=== PATIENT | male | born 1955 | race African-American/Black ===

== ENCOUNTER 2017-02-10 01:16 | Inpatient (IN) | payer MEDICAID, OTHER ==
[2017-02-10] VITALS (9 sets, daily range): BP systolic 129–217; BP diastolic 69–123
[~2017-02-10] VITALS: Ht 190.5 cm; Wt 111.1 kg
[~2017-02-10 01:16] MED LIST: Morphine Sulfate 4mg/ml Inj IVP ONE; Vancomycin 1.5gm/D5W 300ml 325 ML IVPB ONE; metroNIDAZOLE 500mg 100 ML IV SCH
[2017-02-10] MEDS: metroNIDAZOLE 500mg 100 ML IV SCH ×2 (02:11→08:37)
[2017-02-10 02:27] LABS: BASOPHILS % (AUTO) 1.4 % (0.0-2.0); EOSINOPHILS % (AUTO) 0.1 % (0.0-3.0); LYMPHOCYTES % (AUTO) 8.9 % (20.0-45.0); MEAN CORPUSCULAR HEMOGLOBIN 33.4 PG (27.0-31.0); MEAN CORPUSCULAR VOLUME 101 FL (80-99); MEAN PLATELET VOLUME 8.7 FL (6.5-10.1); MONOCYTES % (AUTO) 6.4 % (1.0-10.0); NEUTROPHILS % (AUTO) 83.3 % (45.0-75.0); PLATELET COUNT 114 K/UL (150-450); RED BLOOD COUNT 3.84 M/UL (4.70-6.10); RED CELL DISTRIBUTION WIDTH 13.5 % (11.6-14.8); WHITE BLOOD COUNT 17.4 K/UL (4.8-10.8)
[2017-02-10] MEDS ORDERED: Morphine Sulfate 4mg/ml Inj IVP ONE (02:30)
[2017-02-10 02:33] LABS: INR 1.3 (0.9-1.1); PROTHROMBIN TIME 13.4 SEC (9.30-11.50)
[2017-02-10 02:35] LABS: ALANINE AMINOTRANSFERASE 64 U/L (3-41); ALBUMIN/GLOBULIN RATIO 0.4 (1.0-2.7); ANION GAP 16 (5-15); ASPARTATE AMINO TRANSFERASE 159 U/L (5-40); CALCIUM 8.8 mg/dL (8.6-10.2); CARBON DIOXIDE 23 mEQ/L (20-30); CHLORIDE 99 mEQ/L (98-107); CREATININE 1.8 mg/dL (0.7-1.2); GLOMERULAR FILTRATION RATE 46.8 mL/min (>60); HEMOLYSIS 3; MAGNESIUM 1.6 mg/dL (1.7-2.5); POTASSIUM 4.3 mEQ/L (3.4-4.9); SODIUM 138 mEQ/L (135-145); TOTAL PROTEIN 9.1 g/dL (6.6-8.7)
[2017-02-10 02:38] LABS: REFLEX LACTIC ACID YES OR NO YES
[2017-02-10 02:43] LABS: APPEARANCE,URINE CLEAR; KETONES,URINE 1+ (NEGATIVE); LEUKOCYTE ESTERASE ,URINE 1+ (NEGATIVE); NITRITE,URINE NEGATIVE (NEGATIVE); PH,URINE 5 (4.5-8.0); PROTEIN,URINE 3+ (NEGATIVE); UROBILINOGEN,URINE 8 MG/DL (0.0-1.0)
[2017-02-10 02:57] LABS: BACTERIA,URINE FEW /HPF; CALCIUM OXALATE CRYSTALS,UR MODERATE /LPF; RBC,URINE 0-2 /HPF (0 - 0); WBC,URINE 0-2 /HPF (0 - 0)
[2017-02-10 02:58] LABS: ICTOTEST POSITIVE
[2017-02-10 02:59] LABS: TROPONIN I < 0.30 ng/mL (<=0.30)
[2017-02-10] MEDS ORDERED: Cefepime HCl 1 GM in D5W 55 ML IVPB ONE (03:00)
[2017-02-10] MEDS ORDERED: Cefepime 1gm vial ONE (03:01)
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
[2017-02-10] MEDS ORDERED: NS 1000ml 3,300 ML IVLG ONE (03:30)
[2017-02-10 03:33] LABS: ERYTHROCYTE SEDIMENTATION RATE 94 MM/HR (0-20)
[2017-02-10] MEDS ORDERED: NKM (04:16)
[2017-02-10 04:53] LABS: BILIRUBIN,DIRECT 0.9 mg/dL (0.1-0.3)
[2017-02-10] MEDS ORDERED: Nitroglycerin Subl 0.4mg tab (Bottle Of 25) SL PRN (07:30)
[2017-02-10] MEDS ORDERED: Miralax 17gm pkt ORAL PRN (07:30)
[2017-02-10] MEDS ORDERED: DuoNeb 0.5-3(2.5)mg/3ml neb HHN PRN (07:30)
[2017-02-10] MEDS ORDERED: metroNIDAZOLE 500mg 100 ML IVPB SCH (08:00)
--- NOTE | 2017-02-10 09:24 | Diagnostic Imaging Report ---
Indication: Pain Comparison: None Findings: 3 views of the left ankle obtained. No fracture or malalignment seen. Tissue swelling is present. Impression: Soft tissue swelling
--- NOTE | 2017-02-10 09:34 | Diagnostic Imaging Report ---
Indication: Pain Comparison: None Findings: Two views of the left tibia and fibula were obtained. No acute fracture, malalignment, or periosteal reaction are identified. Soft tissues are unremarkable. Bones are osteopenic. Impression: No acute fracture seen
--- NOTE | 2017-02-10 09:36 | Diagnostic Imaging Report ---
Indication: Chest Pain Comparison: None A single view chest radiograph was obtained. Findings: Cardiomediastinal appearance is within normal limits for age. Aorta is mildly ectatic. Pulmonary vascularity is appropriate. The diaphragmatic contour is smooth and costophrenic angles are sharp. No pleural effusions are identified. The bones are unremarkable. Impression: No acute findings
--- NOTE | 2017-02-10 09:45 | Diagnostic Imaging Report ---
Indication: Pain Comparison: None Findings: 3 views of the right foot were obtained. Patient has had a injury to the first toe. There are bandages present and soft tissue irregularity. There is truncation of the tuft of the distal phalange. Findings could be due to erosion due to osteomyelitis or other soft tissue,. Please correlate clinically. Impression: Apparent erosion involving the tuft of the first distal phalange. Osteomyelitis is only possible. Please correlate clinically
[2017-02-10] MEDS ORDERED: NS 275ml ONE (10:22)
[2017-02-10] MEDS ORDERED: Tubing IV Secondary IV ONE (10:22)
[2017-02-10] MEDS: metroNIDAZOLE 500mg 100 ML IVPB SCH ×3 (10:29→21:03)
[2017-02-10] MEDS: Morphine Sulfate 2mg/ml Inj IVP PRN ×2 (10:29→16:11)
[2017-02-10] MEDS: Heparin 5000 units/ml inj SUBQ SCH ×2 (10:37→20:59)
--- NOTE | 2017-02-10 11:01 | Consultation ---
Consult Note Consult Note ID Dic # [id number] YODIT CASTAÑEDA M.D. February 10, 2017 11:01
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
--- NOTE | 2017-02-10 15:46 | Cardiology Report ---
APPROVED REPORT EKG Measurement Heart [id number] Sinus tachycardia Minimal voltage criteria for LVH, may be normal variant Abnormal ECG
[2017-02-10] MEDS ORDERED: Vancomycin 1 GM in D5W 275 ML IVPB SCH (16:00)
--- NOTE | 2017-02-10 16:21 | Diagnostic Imaging Report ---
Indication: Pain Technique: Right foot imaging utilizing multiplanar T1 fast spin-echo and STIR. Comparison: None Findings: There is a prominent erosion involving the distal aspect of the first distal phalange suspicious for osteomyelitis. Moderate soft tissue swelling and edema are noted. Some motion artifact is present. The proximal phalange of the first metatarsal. Unremarkable. Sesamoids are unremarkable. The second distal phalange is also abnormal with diminished T1 and increased T2 signal with overlying soft tissue swelling and suspicion of ulceration. Findings suspicious for osteomyelitis. There is a focus of T1 hypointensity slight T2 hyperintensity involving the base of the fifth proximal phalange suspicious for osteomyelitis. The distal phalanges of the third and fourth toes demonstrate T2 hyperintensity but appear normal on T1-weighted images. Findings are nonspecific and most likely reactive bone marrow edema. Generalized subcutaneous edema within the foot especially in the dorsum of the foot is a nonspecific finding but consistent with cellulitis. Impression: Acute osteomyelitis suspected with regard to the first distal phalange, second distal phalange, and proximal fifth phalange. Please correlate clinically. Generalized cellulitis of the foot. Bone marrow edema (T2 hyperintensity) within the third and fourth distal phalanges with normal T1 signal. This is less specific and findings may be due to reactive bone marrow edema.
--- NOTE | 2017-02-10 22:49 | Consultation ---
DATE OF CONSULTATION: 02/10/2017 INFECTIOUS DISEASE CONSULTATION CONSULTING PHYSICIAN: Joseph Pacheco M.D. REQUESTING PHYSICIAN: Tian Hagan M.D. REASON FOR CONSULTATION: Evaluation of the patient for bilateral lower extremity cellulitis, possible osteomyelitis of the right foot, and antibiotic management. HISTORY OF PRESENT ILLNESS: The patient is a 61-year-old male, who is a poor historian with multiple medical problems, who has been admitted to this medical center due to bilateral lower extremity cellulitis, right more than left. An Infectious Disease consultation has been requested for further evaluation of the patient and antibiotic management. PAST MEDICAL HISTORY: Significant for hypertension. ALLERGIES: Penicillin. SOCIAL HISTORY: No history of drug abuse. FAMILY HISTORY: Noncontributory. REVIEW OF SYSTEMS: HEENT: No recent change in vision or hearing. Pulmonary: No cough or shortness of breath. Cardiovascular: No chest pain or palpitation. Gastrointestinal/Abdomen: No nausea. Genitourinary: No dysuria. Musculoskeletal: He has lower extremity swelling and tenderness, right more than left. Neurologic: No seizures. PHYSICAL EXAMINATION: VITAL SIGNS: Temperature 99.1 degrees, blood pressure 175/91, pulse 100, and respiratory rate 18. HEENT: Mild pale conjunctivae. No icterus. NECK: No lymphadenopathy. CHEST: Coarse breathing sounds. HEART: S1 and S2. ABDOMEN: Soft and nontender. EXTREMITIES: The patient has bilateral lower extremity edema, right more than left. Also, the patient has athletic feet. LABORATORY DATA: WBC 17, hemoglobin 12.8, and platelets 114,000. UA unremarkable. BUN 20 and creatinine 1.8. AST 159, ALT 64, and alkaline phosphatase 110. X-ray of the right foot shows upper end erosion of the tuft of the first distal phalanx, osteomyelitis configuration. The patient's urine tox is positive for cocaine and opiates. The abnormal liver functions could be due to the alcohol abuse. ASSESSMENT: The patient is a 61-year-old male with multiple medical problems, who has been admitted to this medical center with bilateral lower extremity cellulitis, athletic foot, and possible right foot osteomyelitis. PLAN: 1. We will continue the patient on IV vancomycin and cefepime and Flagyl. 2. Monitor blood culture. 3. HIV test. 4. Hepatitis B panel. 5. Monitor liver function tests. 6. Monitor CBC and BMP. 7. MRI of the right foot to rule out osteomyelitis. 8. Based on the patient's clinical course and labs, we will do further recommendations. Thank you, Dr. Hagan, for allowing me to participate in the care of this patient. I will follow this patient with you during this hospitalization. Joseph Pacheco M.D. DR: TIFFANIE JOB#: [id number] CC:
[2017-02-11 00:15] VITALS: BP 135/74
[2017-02-11] MEDS: Morphine Sulfate 2mg/ml Inj IVP PRN ×2 (01:45→22:56)
[2017-02-11] MEDS: metroNIDAZOLE 500mg 100 ML IVPB SCH ×4 (02:10→22:51)
[2017-02-11] MEDS ORDERED: Cefepime HCl 2 GM in D5W 110 ML IV SCH (03:00)
[2017-02-11 04:00] VITALS: BP 130/80
[2017-02-11] MEDS ORDERED: Vancomycin 1.5 GM in D5W 325 ML IVPB SCH (04:00)
[2017-02-11 08:00] VITALS: BP 138/82
[2017-02-11 08:05] LABS: CRP QUANT 1.7 mg/dL (< 0.5); EOSINOPHILS % (AUTO) 0.7 % (0.0-3.0); LYMPHOCYTES % (AUTO) 26.6 % (20.0-45.0); MAGNESIUM 1.9 mg/dL (1.7-2.5); MEAN CORPUSCULAR HEMOGLOBIN 34.1 PG (27.0-31.0); MEAN CORPUSCULAR HGB CONC 33.9 G/DL (32.0-36.0); MEAN CORPUSCULAR VOLUME 101 FL (80-99); MEAN PLATELET VOLUME 8.3 FL (6.5-10.1); NEUTROPHILS % (AUTO) 62.7 % (45.0-75.0); PHOSPHORUS 2.8 mg/dL (2.5-4.8); PLATELET COUNT 100 K/UL (150-450); RED BLOOD COUNT 3.11 M/UL (4.70-6.10); RED CELL DISTRIBUTION WIDTH 13.2 % (11.6-14.8); URIC ACID 7.3 mg/dL (3.0-7.5); WHITE BLOOD COUNT 9.6 K/UL (4.8-10.8)
[2017-02-11 08:13] LABS: ALBUMIN/GLOBULIN RATIO 0.5 (1.0-2.7); CALCIUM 7.9 mg/dL (8.6-10.2); CHOLESTEROL/HDL RATIO 2.9 (3.3-4.4); CREATININE 1.6 mg/dL (0.7-1.2); GLOMERULAR FILTRATION RATE 53.6 mL/min (>60); TOTAL PROTEIN 6.3 g/dL (6.6-8.7)
[2017-02-11 08:25] LABS: THYROID STIMULATING HORMONE 1.01 uIU/mL (0.300-4.500)
[2017-02-11] MEDS: Heparin 5000 units/ml inj SUBQ SCH ×2 (10:10→21:00)
[2017-02-11 12:00] VITALS: BP 137/81
--- NOTE | 2017-02-11 12:30 | General Progress Note ---
Assessment/Plan Status: stable Assessment/Plan status: Renal Failure : Acute vs Chronic Cr lower Sepsis Cellulitis : bilateral lower extremity cellulitis, athletic foot, and possible right foot osteomyelitis. Gangrene Urine positive for Cocaine Anemia Proteinuria , HypoAlbuminemia Plan: Hydrate- BP control- Monitor renal parameters Urine studies 2D echo antibiotics and skin care Subjective ROS Limited/Unobtainable: No Constitutional: Reports: malaise Allergies: Coded Allergies: PENICILLINS (Verified Allergy, Unknown, 02/10/17) Objective Last 24 Hour Vital Signs Date Time Temp Pulse Resp B/P Pulse Ox O2 Delivery O2 Flow Rate FiO2 02/11/17 09:54 91 138/82 02/11/17 08:29 91 18 Room Air 21 02/11/17 08:00 99.0 66 21 138/82 97 Room Air 02/11/17 04:23 71 02/11/17 04:00 99.9 70 18 130/80 98 Room Air 02/11/17 00:47 73 02/11/17 00:15 99.7 68 20 135/74 97 Bi-pap 02/10/17 20:02 99.3 75 19 144/85 98 Room Air 02/10/17 20:00 78 02/10/17 19:20 95 20 Room Air 21 02/10/17 16:17 97.9 69 20 129/69 100 Room Air 02/10/17 16:13 76 132/67 02/10/17 16:09 76 02/10/17 13:33 99.9 02/10/17 13:31 166/99 02/10/17 12:57 101.8 97 20 166/99 96 Room Air 02/10/17 12:43 99 20 Room Air 21 Intake and Output 02/10/17 02/11/17 19:00 07:00 Intake Total 830 ml 825 ml Output Total 600 ml Balance 230 ml 825 ml Intake Oral 480 ml IV Total 350 ml 825 ml Output Urine Total 600 ml Laboratory Tests 02/10/17 16:30: Urine Random Sodium 18 02/11/17 03:00: Urine Eosinophils None seen 02/11/17 06:55: White Blood Count 9.6, Red Blood Count 3.11L, Hemoglobin 10.6L, Hematocrit 31.3L , Mean Corpuscular Volume 101H, Mean Corpuscular Hemoglobin 34.1H, Mean Corpuscular Hemoglobin Concent 33.9, Red Cell Distribution Width 13.2, Platelet Count 100L, Mean Platelet Volume 8.3, Neutrophils (%) (Auto) 62.7, Lymphocytes ( %) (Auto) 26.6, Monocytes (%) (Auto) 9.0, Eosinophils (%) (Auto) 0.7, Basophils (%) (Auto) 1.0, Sodium Level 138, Potassium Level 4.0, Chloride Level 103, Carbon Dioxide Level 24, Anion Gap 11, Blood Urea Nitrogen 22, Creatinine 1.6H, Estimat Glomerular Filtration Rate 53.6, Glucose Level 72L, Uric Acid 7.3, Calcium Level 7.9L, Phosphorus Level 2.8, Magnesium Level 1.9, Total Bilirubin 0.8, Gamma Glutamyl Transpeptidase 75H, Aspartate Amino Transf (AST/SGOT) 157H, Alanine Aminotransferase (ALT/SGPT) 46H, Alkaline Phosphatase 61, Total Creatine Kinase 1551H, C-Reactive Protein, Quantitative 1.7H, Pro-B-Type Natriuretic Peptide 1329H, Total Protein 6.3#L, Albumin 2.1L, Globulin 4.2, Albumin/Globulin Ratio 0.5L, Triglycerides Level 68, Cholesterol Level 79, LDL Cholesterol 38L, HDL Cholesterol 27, Cholesterol/HDL Ratio 2.9L, Thyroid Stimulating Hormone (TSH) 1.010, Hepatitis A IgM Antibody [Pending], Hepatitis B Surface Antigen [Pending], Hepatitis B Core IgM Antibody [Pending], Hepatitis C Antibody [Pending] Height (Feet): 6 Height (Inches): 3.00 Weight (Pounds): 245 General Appearance: no apparent distress Cardiovascular: regular rhythm Respiratory/Chest: decreased breath sounds Abdomen: soft Objective PE no change MART MOREIRA February 11, 2017 12:30
--- NOTE | 2017-02-11 15:15 | Diagnostic Imaging Report ---
Indication: . Abnormal liver function tests. Clinical concern for cirrhosis Technique: Grayscale and duplex Doppler imaging of the abdomen performed. Comparison: None Findings: The liver demonstrates a coarsened echotexture which is potentially a sign of chronic liver disease. However, the finding is relatively nonspecific. There is no nodularity of the liver surface which is more specific finding for cirrhosis. Certainly, no focal lesions are identified within the liver. Liver size is order line measuring about 18 cm at its maximum. There is flow demonstrated within the portal vein. There is no biliary ductal dilatation. CBD is 6 mm in diameter. Gallbladder is normal in appearance. There is no hydronephrosis. In the right kidney there is an echogenic shadowing focus nonobstructive stone. The aorta and IVC are unremarkable. Spleen is borderline enlarged as well measuring between 12 and 13 cm. Impression: Borderline hepatosplenomegaly. No specific sonographic signs for cirrhosis of the liver. Coarsened echotexture is noted which is a nonspecific finding. No ascites. Suspected nonobstructive nephrolithiasis in the right kidney
--- NOTE | 2017-02-11 15:16 | Pulmonology Progress Note ---
Assessment/Plan Problems: (1) Sepsis (2) Gangrene (3) Homelessness (4) Drug abuse Assessment/Plan iv abx wbc decreasing renal function improving Med/surg Impression of MRI: Acute osteomyelitis suspected with regard to the first distal phalange, second distal phalange, and proximal fifth phalange. Please correlate clinically. Subjective ROS Limited/Unobtainable: No Constitutional: Reports: no symptoms HEENT: Repors: no symptoms Respiratory: Reports: no symptoms Cardiovascular: Reports: no symptoms Allergies: Coded Allergies: PENICILLINS (Verified Allergy, Unknown, 02/10/17) Objective Last 24 Hour Vital Signs Date Time Temp Pulse Resp B/P Pulse Ox O2 Delivery O2 Flow Rate FiO2 02/11/17 12:00 97.9 62 20 137/81 98 Room Air 02/11/17 11:45 60 02/11/17 09:54 91 138/82 02/11/17 08:29 91 18 Room Air 21 02/11/17 08:00 99.0 66 21 138/82 97 Room Air 02/11/17 07:28 71 02/11/17 04:23 71 02/11/17 04:00 99.9 70 18 130/80 98 Room Air 02/11/17 00:47 73 02/11/17 00:15 99.7 68 20 135/74 97 Bi-pap 02/10/17 20:02 99.3 75 19 144/85 98 Room Air 02/10/17 20:00 78 02/10/17 19:20 95 20 Room Air 21 02/10/17 16:17 97.9 69 20 129/69 100 Room Air 02/10/17 16:13 76 132/67 02/10/17 16:09 76 Intake and Output 02/10/17 02/11/17 19:00 07:00 Intake Total 830 ml 825 ml Output Total 600 ml Balance 230 ml 825 ml Intake Oral 480 ml IV Total 350 ml 825 ml Output Urine Total 600 ml General Appearance: WD/WN HEENT: normocephalic, anicteric Respiratory/Chest: chest wall non-tender, lungs clear Cardiovascular: normal peripheral pulses, normal rate Abdomen: normal bowel sounds, soft, non tender, non distended Extremities: other - gangren of toes Microbiology Date/Time Source Procedure Growth Status 02/10/17 02:05 Blood Blood Culture - Preliminary NO GROWTH AFTER 24 HOURS Resulted 02/10/17 01:50 Blood Blood Culture - Preliminary Resulted Laboratory Tests 02/10/17 16:30: Urine Random Sodium 18 02/11/17 03:00: Urine Eosinophils None seen 02/11/17 06:55: White Blood Count 9.6, Red Blood Count 3.11L, Hemoglobin 10.6L, Hematocrit 31.3L , Mean Corpuscular Volume 101H, Mean Corpuscular Hemoglobin 34.1H, Mean Corpuscular Hemoglobin Concent 33.9, Red Cell Distribution Width 13.2, Platelet Count 100L, Mean Platelet Volume 8.3, Neutrophils (%) (Auto) 62.7, Lymphocytes ( %) (Auto) 26.6, Monocytes (%) (Auto) 9.0, Eosinophils (%) (Auto) 0.7, Basophils (%) (Auto) 1.0, Sodium Level 138, Potassium Level 4.0, Chloride Level 103, Carbon Dioxide Level 24, Anion Gap 11, Blood Urea Nitrogen 22, Creatinine 1.6H, Estimat Glomerular Filtration Rate 53.6, Glucose Level 72L, Uric Acid 7.3, Calcium Level 7.9L, Phosphorus Level 2.8, Magnesium Level 1.9, Total Bilirubin 0.8, Gamma Glutamyl Transpeptidase 75H, Aspartate Amino Transf (AST/SGOT) 157H, Alanine Aminotransferase (ALT/SGPT) 46H, Alkaline Phosphatase 61, Total Creatine Kinase 1551H, C-Reactive Protein, Quantitative 1.7H, Pro-B-Type Natriuretic Peptide 1329H, Total Protein 6.3#L, Albumin 2.1L, Globulin 4.2, Albumin/Globulin Ratio 0.5L, Triglycerides Level 68, Cholesterol Level 79, LDL Cholesterol 38L, HDL Cholesterol 27, Cholesterol/HDL Ratio 2.9L, Thyroid Stimulating Hormone (TSH) 1.010, Hepatitis A IgM Antibody [Pending], Hepatitis B Surface Antigen [Pending], Hepatitis B Core IgM Antibody [Pending], Hepatitis C Antibody [Pending] Current Medications Medications (Trade) Dose Ordered Sig/Sharla Route PRN Reason Start Time Stop Time Status Last Admin Dose Admin Acetaminophen (Tylenol) 650 mg Q4H PRN ORAL fever 02/10/17 07:30 03/12/17 07:29 02/10/17 12:19 Albuterol/ Ipratropium 3 ml 3 ml Q4H PRN HHN Shortness of Breath 02/10/17 07:30 02/15/17 07:29 Amlodipine Besylate 5 mg 5 mg DAILY ORAL 02/10/17 16:00 03/12/17 15:59 02/11/17 09:54 Cefepime HCl/ Dextrose (Maxipime/D5W) 110 ml @ 220 mls/hr Q24H IV 02/11/17 03:00 02/18/17 02:59 02/11/17 01:35 Clonidine HCl (Catapres) 0.1 mg Q4H PRN ORAL SBP > 160 02/10/17 15:30 03/12/17 15:29 Dextrose (Dextrose 50%) STAT PRN IV Hypoglycemia 02/10/17 07:30 03/12/17 07:29 Heparin Sodium (Porcine) (Heparin 5000 units/ml) 5,000 units EVERY 12 HOURS SUBQ 02/10/17 11:00 03/12/17 10:59 02/11/17 10:10 Methadone HCl (Methadone HCl) 80 mg DAILY ORAL 02/12/17 09:00 02/19/17 08:59 UNV Metronidazole (Flagyl) 100 ml @ 100 mls/hr Q6H IVPB 02/10/17 10:00 02/17/17 09:59 02/11/17 09:55 Morphine Sulfate (Morphine Sulfate) 2 mg Q4H PRN IVP Moderate Pain (Pain Scale 4-6) 02/10/17 07:30 02/17/17 07:29 02/11/17 01:45 Nitroglycerin (Ntg) 0.4 mg Q5M PRN SL Prn Chest Pain 02/10/17 07:30 03/12/17 07:29 Ondansetron HCl (Zofran) 4 mg Q6H PRN IVP Nausea & Vomiting 02/10/17 07:30 03/12/17 07:29 Polyethylene Glycol (Miralax) 17 gm DAILYPRN PRN ORAL Constipation 02/10/17 07:30 03/12/17 07:29 Sodium Chloride 1,000 ml @ 75 mls/hr [id number] IV 02/10/17 16:30 03/12/17 16:29 02/11/17 05:15 Temazepam (Restoril) 15 mg HSPRN PRN ORAL Insomnia 02/10/17 07:30 02/17/17 07:29 Vancomycin HCl 1 ea 1 ea DAILY PRN MISC PER RX PROTOCOL 02/10/17 08:30 03/12/17 08:29 Vancomycin HCl/ Dextrose (Vancomycin/D5W) 275 ml @ 183.333 mls/hr Q12HR@0600,1800 IVPB 02/11/17 18:00 02/16/17 17:59 RASHAAD GALLAGHER February 11, 2017 15:15
[2017-02-11 16:00] VITALS: BP 134/80
--- NOTE | 2017-02-11 16:38 | Cardiology Report ---
APPROVED REPORT EXAM: Two-dimensional and M-mode echocardiogram with Doppler and color Doppler. INDICATION LV function M-Mode DIMENSIONS IVSd1.4 (0.7-1.1cm)Left Atrium (MM)3.9 (1.6-4.0cm) LVDd4.8 (3.5-5.6cm)Aortic Root3.9 (2.0-3.7cm) PWd1.4 (0.7-1.1cm)Aortic Cusp Exc.2.6 (1.5-2.0cm) LVDs3.0 (2.5-4.0cm) PWs1.8 cm Normal left ventricular chamber size, systolic function and wall motion. Left ventricular ejection fraction estimated to be 60 %. Mild left ventricular hypertrophy by 2-D. No evidence of pericardial effusion. Mild left atrial enlargement. Right cardiac chamber sizes are within normal limits. Focal aortic valve sclerosis with adequate cusp excursion. Thickened mitral valve leaflets with normal excursion. Mitral annulus and aortic root calcification. Mild aortic root dilatation. Pulmonic valve not well visualized. Normal tricuspid valve structure. IVC dilated at 2.6 cm slight physiologic collapse suggestive of increased RA pressure. A color flow and spectral Doppler study was performed and revealed: Trace aortic regurgitation. Trace mitral regurgitation. Mitral diastolic velocities suggest reduced left ventricular relaxation c/w mild LV diastolic dysfunction (Grade I ). Trace tricuspid regurgitation. Tricuspid systolic velocities suggests peak right ventricular systolic pressure of 34 mmHg.
[2017-02-11] MEDS ORDERED: Vancomycin 1 GM in D5W 275 ML IVPB SCH (18:00)
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
[2017-02-11] MEDS ORDERED: Nitroglycerin Subl 0.4mg tab (Bottle Of 25) SL PRN (19:15)
[2017-02-11] MEDS ORDERED: DuoNeb 0.5-3(2.5)mg/3ml neb HHN PRN (19:30)
[2017-02-11 21:01] VITALS: BP 147/80
--- NOTE | 2017-02-11 21:20 | Infectious Diseases Prog Note ---
Assessment/Plan Assessment/Plan :A The patient is a 61-year-old male, Fever improving Leukocytosis improving Bilateral lower extremity cellulitis, and osteomyelitis of the right foot MRI : Acute osteomyelitis suspected with regard to the first distal phalange , second distal phalange, and proximal fifth phalange Transaminitis HIV neg HTN U tox +ve for cocaine and opiates PLAN: Cont the patient on IV vancomycin and cefepime and Flagyl d# 2 Monitor blood culture. 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 Monitor CBC and BMP Subjective Allergies: Coded Allergies: PENICILLINS (Verified Allergy, Unknown, 02/10/17) Subjective +ve blood cx Objective Vital Signs Last 24 Hour Vital Signs Date Time Temp Pulse Resp B/P Pulse Ox O2 Delivery O2 Flow Rate FiO2 02/11/17 21:01 98.1 68 18 147/80 96 Room Air 02/11/17 19:34 68 18 Room Air 21 02/11/17 16:00 97.9 65 21 134/80 98 Room Air 02/11/17 12:00 97.9 62 20 137/81 98 Room Air 02/11/17 11:45 60 02/11/17 09:54 91 138/82 02/11/17 08:29 91 18 Room Air 21 02/11/17 08:00 99.0 66 21 138/82 97 Room Air 02/11/17 07:28 71 02/11/17 04:23 71 02/11/17 04:00 99.9 70 18 130/80 98 Room Air 02/11/17 00:47 73 02/11/17 00:15 99.7 68 20 135/74 97 Bi-pap Height (Feet): 6 Height (Inches): 3.00 Weight (Pounds): 245 HEENT: anicteric Respiratory/Chest: no respiratory distress Cardiovascular: regular rhythm Abdomen: no organomegaly Microbiology Date/Time Source Procedure Growth Status 02/10/17 02:05 Blood Blood Culture - Preliminary NO GROWTH AFTER 24 HOURS Resulted 02/10/17 01:50 Blood Blood Culture - Preliminary Resulted Laboratory Tests Test 02/11/17 03:00 02/11/17 06:55 Urine Eosinophils None seen White Blood Count 9.6 K/UL (4.8-10.8) Red Blood Count 3.11 M/UL (4.70-6.10) L Hemoglobin 10.6 G/DL (14.2-18.0) L Hematocrit 31.3 % (42.0-52.0) L Mean Corpuscular Volume 101 FL (80-99) H Mean Corpuscular Hemoglobin 34.1 PG (27.0-31.0) H Mean Corpuscular Hemoglobin Concent 33.9 G/DL (32.0-36.0) Red Cell Distribution Width 13.2 % (11.6-14.8) Platelet Count 100 K/UL (150-450) L Mean Platelet Volume 8.3 FL (6.5-10.1) Neutrophils (%) (Auto) 62.7 % (45.0-75.0) Lymphocytes (%) (Auto) 26.6 % (20.0-45.0) Monocytes (%) (Auto) 9.0 % (1.0-10.0) Eosinophils (%) (Auto) 0.7 % (0.0-3.0) Basophils (%) (Auto) 1.0 % (0.0-2.0) Sodium Level 138 mEQ/L (135-145) Potassium Level 4.0 mEQ/L (3.4-4.9) Chloride Level 103 mEQ/L (98-107) Carbon Dioxide Level 24 mEQ/L (20-30) Anion Gap 11 (5-15) Blood Urea Nitrogen 22 mg/dL (7-23) Creatinine 1.6 mg/dL (0.7-1.2) H Estimat Glomerular Filtration Rate 53.6 mL/min (>60) Glucose Level 72 mg/dL (74-106) L Uric Acid 7.3 mg/dL (3.0-7.5) Calcium Level 7.9 mg/dL (8.6-10.2) L Phosphorus Level 2.8 mg/dL (2.5-4.8) Magnesium Level 1.9 mg/dL (1.7-2.5) Total Bilirubin 0.8 mg/dL (0.0-1.2) Gamma Glutamyl Transpeptidase 75 U/L (8-61) H Aspartate Amino Transf (AST/SGOT) 157 U/L (5-40) H Alanine Aminotransferase (ALT/SGPT) 46 U/L (3-41) H Alkaline Phosphatase 61 U/L (40-129) Total Creatine Kinase 1551 U/L (38-174) H C-Reactive Protein, Quantitative 1.7 mg/dL (< 0.5) H Pro-B-Type Natriuretic Peptide 1329 pg/mL (0-125) H Total Protein 6.3 g/dL (6.6-8.7) #L Albumin 2.1 g/dL (3.5-5.2) L Globulin 4.2 g/dL Albumin/Globulin Ratio 0.5 (1.0-2.7) L Triglycerides Level 68 mg/dL (< 150) Cholesterol Level 79 mg/dL (< 200) LDL Cholesterol 38 mg/dL (60-99) L HDL Cholesterol 27 mg/dL (> 60) Cholesterol/HDL Ratio 2.9 (3.3-4.4) L Thyroid Stimulating Hormone (TSH) 1.010 uIU/mL (0.300-4.500) Hepatitis A IgM Antibody Pending Hepatitis B Surface Antigen Pending Hepatitis B Core IgM Antibody Pending Hepatitis C Antibody Pending Current Medications Medications (Trade) Dose Ordered Sig/Sharla Route PRN Reason Start Time Stop Time Status Last Admin Dose Admin Acetaminophen (Tylenol) 650 mg Q4H PRN ORAL T>100.5 02/11/17 19:30 03/13/17 19:29 Albuterol/ Ipratropium (DuoNeb 0.5-3(2.5)mg/3ml) 3 ml Q4H PRN HHN Shortness of Breath 02/11/17 19:30 02/16/17 19:29 Amlodipine Besylate (Norvasc) 5 mg DAILY ORAL 02/12/17 09:00 03/14/17 08:59 Cefepime HCl 2 gm/ Dextrose 110 ml @ 220 mls/hr Q24H IV 02/12/17 03:00 02/19/17 02:59 Clonidine HCl (Catapres) 0.1 mg Q4H PRN ORAL SBP > 160 02/11/17 19:30 03/13/17 19:29 Dextrose (Dextrose 50%) STAT PRN IV Hypoglycemia 02/11/17 19:30 03/13/17 19:29 Heparin Sodium (Porcine) (Heparin 5000 units/ml) 5,000 units EVERY 12 HOURS SUBQ 02/11/17 21:00 03/13/17 20:59 Methadone HCl (Methadone HCl) 80 mg DAILY ORAL 5/11/17 09:00 02/19/17 08:59 Metronidazole 100 ml @ 100 mls/hr Q6H IVPB 02/11/17 22:00 02/18/17 21:59 Morphine Sulfate (Morphine Sulfate) 2 mg Q4H PRN IVP Moderate Pain (Pain Scale 4-6) 02/11/17 19:30 02/18/17 19:29 Nitroglycerin (Ntg) 0.4 mg Q5M PRN SL Prn Chest Pain 02/11/17 19:15 03/13/17 19:14 Ondansetron HCl (Zofran) 4 mg Q6H PRN IVP Nausea & Vomiting 02/11/17 19:30 03/13/17 19:29 Polyethylene Glycol (Miralax) 17 gm DAILYPRN PRN ORAL Constipation 02/11/17 19:30 03/13/17 19:29 Sodium Chloride 1,000 ml @ 75 mls/hr [id number] IV 02/11/17 19:15 03/13/17 19:14 02/11/17 21:09 Temazepam (Restoril) 15 mg HSPRN PRN ORAL Insomnia 02/12/17 21:00 02/19/17 20:59 Vancomycin HCl (Vanco rx to dose) 1 ea DAILY PRN MISC PER RX PROTOCOL 02/11/17 19:30 03/13/17 19:29 Vancomycin HCl/ Dextrose (Vancomycin/D5W) 275 ml @ 183.333 mls/hr Q12HR@0600,1800 IVPB 02/12/17 06:00 02/17/17 05:59 YODIT CASTAÑEDA M.D. February 11, 2017 21:20
--- NOTE | 2017-02-11 21:24 | Wound Care Consultation ---
Wound Assessment Wound Assessment #1: Wound Present on Admission: Yes New Wound: No Status Change of Wound: No Wound Location Body Site Modif: right Wound Location Body Site: foot - and 1st, 2nd and 5th toe with abscess Wound Type: abscess - cellulitis Amanda Test: Does not Amanda Wound Thickness: Full Thickness Wound Drainage Description: Serosanguineous, Foul Purulent Wound Drainage Amount: Moderate Wound Drainage Odor: Mild Odor Tissue Surrounding Wound: Indurated Wound General Appearance: Draining Wound Assessment #2: Wound Number: #2 Wound Present on Admission: Yes New Wound: No Status Change of Wound: No Wound Location Body Site Modif: left, plantar Wound Location Body Site: foot - and big toe Wound Type: abscess Amanda Test: Does not Amanda Wound Thickness: Full Thickness Wound Drainage Description: Serosanguineous, Foul Purulent Wound Drainage Amount: Moderate Wound Drainage Odor: Mild Odor Tissue Surrounding Wound: Indurated Wound General Appearance: Draining Wound Comment Bilateral foot cellulitis with abscess on toes and plantar swelling. Pt is under the care of DPM. Recommendation -Local wound care as ordered by DPM -Offload both heels -Elevate both legs -Optimize nutrition -Keep clean and dry -Turn and reposition -Assess and f/u with DPM for any changes JASVIR WEAVER RN February 11, 2017 21:24
[2017-02-12] VITALS (7 sets, daily range): BP systolic 139–162; BP diastolic 71–85
[2017-02-12] MEDS: Morphine Sulfate 2mg/ml Inj IVP PRN (02:59)
[2017-02-12] MEDS: Cefepime HCl 2 GM in D5W 110 ML IV SCH (03:05)
[2017-02-12] MEDS: metroNIDAZOLE 500mg 100 ML IVPB SCH ×4 (03:37→21:43)
[2017-02-12] MEDS: Vancomycin 1 GM in D5W 275 ML IVPB SCH ×2 (05:44→18:18)
[2017-02-12] MEDS: Heparin 5000 units/ml inj SUBQ SCH ×2 (09:00→21:00)
[2017-02-12] MEDS ORDERED: Tubing IV Secondary IV ONE (09:21)
--- NOTE | 2017-02-12 10:34 | Infectious Diseases Prog Note ---
Assessment/Plan Assessment/Plan A : The patient is a 61-year-old male, Blood cx :GPC Fever SP Leukocytosis , SP Bilateral lower extremity cellulitis, and osteomyelitis of the right foot I&D was performed at bedside of bilateral hallux abscess 02/11 MRI : Acute osteomyelitis suspected with regard to the first distal phalange , second distal phalange, and proximal fifth phalange Transaminitis Hep C Ab+ HIV neg Renal Failure : Acute vs Chronic Cr lower HTN U tox +ve for cocaine and opiates PLAN: Cont the patient on IV vancomycin and cefepime and Flagyl d# , Monitor blood culture. Monitor Wnd culture Hepatitis C PCR Monitor liver function tests Monitor CBC and BMP Subjective Allergies: Coded Allergies: PENICILLINS (Verified Allergy, Unknown, 02/10/17) Subjective afebrile Objective Vital Signs Last 24 Hour Vital Signs Date Time Temp Pulse Resp B/P Pulse Ox O2 Delivery O2 Flow Rate FiO2 02/12/17 09:02 97.8 94 20 148/79 97 Room Air 21 02/12/17 09:00 94 148/79 02/12/17 08:53 97.8 94 20 148/79 97 Room Air 02/12/17 08:00 97.6 89 19 146/85 Nasal Cannula 02/12/17 08:00 98.4 64 20 148/79 97 Room Air 02/12/17 05:03 97.9 59 20 139/71 98 Room Air 02/12/17 00:13 97.9 59 20 142/85 97 Room Air 02/11/17 21:01 98.1 68 18 147/80 96 Room Air 02/11/17 19:34 68 18 Room Air 21 02/11/17 16:00 97.9 65 21 134/80 98 Room Air 02/11/17 12:00 97.9 62 20 137/81 98 Room Air 02/11/17 11:45 60 Height (Feet): 6 Height (Inches): 3.00 Weight (Pounds): 245 HEENT: mucous membranes moist Respiratory/Chest: no respiratory distress Cardiovascular: regularly irregular Abdomen: non distended Microbiology Date/Time Source Procedure Growth Status 02/10/17 02:05 Blood Blood Culture - Preliminary NO GROWTH AFTER 48 HOURS Resulted 02/10/17 01:50 Blood Blood Culture - Preliminary Gram Positive Cocci Resulted 02/10/17 03:45 Nasal Nares MRSA Culture - Final NO METHICILLIN RESISTANT STAPH AUREUS... Complete 02/10/17 03:45 Rectum VRE Culture - Final NO VANCOMYCIN RESISTANT ENTEROCOCCUS ... Complete Laboratory Tests Test 02/12/17 06:05 Urine Eosinophils None seen Current Medications Medications (Trade) Dose Ordered Sig/Sharla Route PRN Reason Start Time Stop Time Status Last Admin Dose Admin Acetaminophen (Tylenol) 650 mg Q4H PRN ORAL T>100.5 02/11/17 19:30 03/13/17 19:29 Albuterol/ Ipratropium (DuoNeb 0.5-3(2.5)mg/3ml) 3 ml Q4H PRN HHN Shortness of Breath 02/11/17 19:30 02/16/17 19:29 Amlodipine Besylate (Norvasc) 5 mg DAILY ORAL 02/12/17 09:00 03/14/17 08:59 02/12/17 09:00 Cefepime HCl 2 gm/ Dextrose 110 ml @ 220 mls/hr Q24H IV 02/12/17 03:00 02/19/17 02:59 02/12/17 03:05 Clonidine HCl (Catapres) 0.1 mg Q4H PRN ORAL SBP > 160 02/11/17 19:30 03/13/17 19:29 Dextrose (Dextrose 50%) STAT PRN IV Hypoglycemia 02/11/17 19:30 03/13/17 19:29 Heparin Sodium (Porcine) (Heparin 5000 units/ml) 5,000 units EVERY 12 HOURS SUBQ 02/11/17 21:00 03/13/17 20:59 Methadone HCl (Methadone HCl) 80 mg DAILY ORAL 02/12/17 09:00 02/19/17 08:59 02/12/17 09:00 Metronidazole 100 ml @ 100 mls/hr Q6H IVPB 02/11/17 22:00 02/18/17 21:59 02/12/17 10:09 Morphine Sulfate (Morphine Sulfate) 2 mg Q4H PRN IVP Moderate Pain (Pain Scale 4-6) 02/11/17 19:30 02/18/17 19:29 02/12/17 02:59 Nitroglycerin (Ntg) 0.4 mg Q5M PRN SL Prn Chest Pain 02/11/17 19:15 03/13/17 19:14 Ondansetron HCl (Zofran) 4 mg Q6H PRN IVP Nausea & Vomiting 02/11/17 19:30 03/13/17 19:29 Polyethylene Glycol (Miralax) 17 gm DAILYPRN PRN ORAL Constipation 02/11/17 19:30 03/13/17 19:29 Sodium Chloride 1,000 ml @ 75 mls/hr [id number] IV 02/11/17 19:15 03/13/17 19:14 02/11/17 21:09 Temazepam (Restoril) 15 mg HSPRN PRN ORAL Insomnia 02/12/17 21:00 02/19/17 20:59 Vancomycin HCl (Vanco rx to dose) 1 ea DAILY PRN MISC PER RX PROTOCOL 02/11/17 19:30 03/13/17 19:29 Vancomycin HCl/ Dextrose (Vancomycin/D5W) 275 ml @ 183.333 mls/hr Q12HR@0600,1800 IVPB 02/12/17 06:00 02/17/17 05:59 02/12/17 05:44 YODIT CASTAÑEDA M.D. February 12, 2017 10:34
--- NOTE | 2017-02-12 10:44 | General Progress Note ---
Assessment/Plan Status: unchanged Status Narrative Cr 1.6 Assessment/Plan status: Renal Failure : Acute vs Chronic Cr lower Sepsis Cellulitis : bilateral lower extremity cellulitis, athletic foot, and possible right foot osteomyelitis. Gangrene Urine positive for Cocaine Anemia Proteinuria , HypoAlbuminemia Plan: no labs today Hydrate- BP control- Monitor renal parameters Urine studies 2D echo : Left ventricular ejection fraction estimated to be 60 %. antibiotics and skin care Subjective ROS Limited/Unobtainable: No Constitutional: Reports: malaise Allergies: Coded Allergies: PENICILLINS (Verified Allergy, Unknown, 02/10/17) Objective Last 24 Hour Vital Signs Date Time Temp Pulse Resp B/P Pulse Ox O2 Delivery O2 Flow Rate FiO2 02/12/17 10:35 99.0 72 20 100 Room Air 02/12/17 09:02 97.8 94 20 148/79 97 Room Air 21 02/12/17 09:00 94 148/79 02/12/17 08:53 97.8 94 20 148/79 97 Room Air 02/12/17 08:00 97.6 89 19 146/85 Nasal Cannula 02/12/17 08:00 98.4 64 20 148/79 97 Room Air 02/12/17 05:03 97.9 59 20 139/71 98 Room Air 02/12/17 00:13 97.9 59 20 142/85 97 Room Air 02/11/17 21:01 98.1 68 18 147/80 96 Room Air 02/11/17 19:34 68 18 Room Air 21 02/11/17 16:00 97.9 65 21 134/80 98 Room Air 02/11/17 12:00 97.9 62 20 137/81 98 Room Air 02/11/17 11:45 60 Intake and Output 02/11/17 02/12/17 19:00 07:00 Intake Total 1110 ml 868.333 ml Output Total 900 ml 800 ml Balance 210 ml 68.333 ml Intake Oral 360 ml IV Total 750 ml 868.333 ml Output Urine Total 900 ml 800 ml Laboratory Tests 02/12/17 06:05: Urine Eosinophils None seen Height (Feet): 6 Height (Inches): 3.00 Weight (Pounds): 245 General Appearance: no apparent distress, lethargic Neck: limited range of motion Cardiovascular: tachycardia Respiratory/Chest: decreased breath sounds Abdomen: soft Objective PE no change MART MOREIRA February 12, 2017 10:44
--- NOTE | 2017-02-12 12:08 | Diagnostic Imaging Report ---
APPROVED REPORT CPT Code: 97931 Symptoms Comments: Edema Swelling Comments Hx of Osteomyelitis BILATERAL: Common femoral artery waveform analysis is within normal limits at rest. Color flow duplex sonography reveals patency of the superficial femoral, popliteal, and tibial arteries, there is no evidence of stenosis or occlusion within these segments. Doppler tibial artery waveform analysis is within normal limits, bilaterally. There is no evidence of significant arterial occlusive disease, bilaterally.
--- NOTE | 2017-02-12 12:11 | Diagnostic Imaging Report ---
APPROVED REPORT CPT Code: 26460 Present Symptoms Lower Extremity Pain: Bilateral BILATERAL: Imaging reveals a patent deep venous system bilaterally. There is no evidence of thrombus within the femoral, popliteal or tibial segments. The greater saphenous veins are also within normal limits. Doppler indicates normal spontaneous flow within these segments.
--- NOTE | 2017-02-12 12:11 | Diagnostic Imaging Report ---
APPROVED REPORT CPT Code: 42469 Present Symptoms Lower Extremity Pain: Right RIGHT LEG: Venous imaging reveals a patent deep venous system. There is no evidence of thrombus within the femoral, popliteal or tibial segments. The greater saphenous vein is also within normal limits. Doppler indicates normal spontaneous flow within these segments.
[2017-02-12] MEDS: Miralax 17gm pkt ORAL PRN (20:25)
--- NOTE | 2017-02-12 20:52 | Podiatric Progress Note ---
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 Patient is doing well. He has remained afebrile for the last 24 hours and last WBC was within normal limits. - Cultures pending. Follow up results. Infectious disease specialist is following and making recommendations regarding antibiotics. - The wound is now stable. Continue daily dressing changes. - Will check AM labs. If WBC continues to remain WNL okay to discharge patient to from podiatry standpoint Subjective Reason for consult Bilateral foot ulcers Procedure Performed 1 day status post bilateral foot I&D with wound debridement Allergies: Coded Allergies: PENICILLINS (Verified Allergy, Unknown, 02/10/17) Subjective Patient states he is doing well. No nausea, vomiting, fevers, chills or pain reported. No overnight events. Objective Exam Last 24 Hour Vital Signs Date Time Temp Pulse Resp B/P Pulse Ox O2 Delivery O2 Flow Rate FiO2 02/12/17 19:00 93 20 Room Air 21 02/12/17 16:00 98.2 63 20 162/79 100 Room Air 02/12/17 10:35 99.0 72 20 100 Room Air 02/12/17 09:30 94 20 Room Air 21 02/12/17 09:02 97.8 94 20 148/79 97 Room Air 21 02/12/17 09:00 94 148/79 02/12/17 08:53 97.8 94 20 148/79 97 Room Air 02/12/17 08:00 97.6 89 19 146/85 Nasal Cannula 02/12/17 08:00 98.4 64 20 148/79 97 Room Air 02/12/17 05:03 97.9 59 20 139/71 98 Room Air 02/12/17 00:13 97.9 59 20 142/85 97 Room Air 02/11/17 21:01 98.1 68 18 147/80 96 Room Air Laboratory Tests Test 02/12/17 06:05 02/12/17 16:45 Urine Eosinophils None seen Vancomycin Level Trough 17.0 ug/mL (5.0-12.0) H Microbiology Date/Time Source Procedure Growth Status 02/10/17 02:05 Blood Blood Culture - Preliminary Resulted 02/11/17 19:00 Wound Gram Stain - Preliminary Resulted 02/11/17 19:00 Wound Wound Culture Pending Resulted 02/11/17 19:00 Wound Aerobic Culture Pending Resulted 02/11/17 19:00 Wound Anaerobic Culture Pending Resulted 02/10/17 03:45 Nasal Nares MRSA Culture - Final NO METHICILLIN RESISTANT STAPH AUREUS... Complete 02/10/17 03:45 Rectum VRE Culture - Final NO VANCOMYCIN RESISTANT ENTEROCOCCUS ... Complete Exam Narrative Bilateral hallux wounds, right worse than left. No purulence or malodor noted today. Dressings were clean, dry, and in tact. Dermatological Wound Assessment : Exudate Amount: None Faheem Rubin DPM February 12, 2017 20:52
--- NOTE | 2017-02-12 22:02 | Pulmonology Progress Note ---
Assessment/Plan Problems: (1) Sepsis (2) Gangrene (3) Homelessness (4) Drug abuse Assessment/Plan iv abx wbc decreasing renal function improving Med/surg Impression of MRI: Acute osteomyelitis suspected with regard to the first distal phalange, second distal phalange, and proximal fifth phalange. Please correlate clinically. s/p debridement of both hallux.. Needs IV antibiotics for 42 days and wound care Subjective ROS Limited/Unobtainable: No Constitutional: Reports: no symptoms HEENT: Repors: no symptoms Allergies: Coded Allergies: PENICILLINS (Verified Allergy, Unknown, 02/10/17) Objective Last 24 Hour Vital Signs Date Time Temp Pulse Resp B/P Pulse Ox O2 Delivery O2 Flow Rate FiO2 02/12/17 20:00 97.7 60 17 149/82 98 Room Air 02/12/17 19:00 93 20 Room Air 21 02/12/17 16:00 98.2 63 20 162/79 100 Room Air 02/12/17 10:35 99.0 72 20 100 Room Air 02/12/17 09:30 94 20 Room Air 21 02/12/17 09:02 97.8 94 20 148/79 97 Room Air 21 02/12/17 09:00 94 148/79 02/12/17 08:53 97.8 94 20 148/79 97 Room Air 02/12/17 08:00 97.6 89 19 146/85 Nasal Cannula 02/12/17 08:00 98.4 64 20 148/79 97 Room Air 02/12/17 05:03 97.9 59 20 139/71 98 Room Air 02/12/17 00:13 97.9 59 20 142/85 97 Room Air Intake and Output 02/11/17 02/12/17 19:00 07:00 Intake Total 1110 ml 868.333 ml Output Total 900 ml 800 ml Balance 210 ml 68.333 ml Intake Oral 360 ml IV Total 750 ml 868.333 ml Output Urine Total 900 ml 800 ml Objective General Appearance: WD/WN HEENT: normocephalic Respiratory/Chest: chest wall non-tender, lungs clear Cardiovascular: normal peripheral pulses, regular rhythm Abdomen: normal bowel sounds, soft, non tender Genitourinary: normal external genitalia Extremities: no cyanosis, clean dressing on feet Microbiology Date/Time Source Procedure Growth Status 02/10/17 02:05 Blood Blood Culture - Preliminary Resulted 02/10/17 01:50 Blood Blood Culture - Preliminary Gram Positive Cocci Resulted 02/11/17 19:00 Wound Gram Stain - Preliminary Resulted 02/11/17 19:00 Wound Wound Culture Pending Resulted 02/11/17 19:00 Wound Aerobic Culture Pending Resulted 02/11/17 19:00 Wound Anaerobic Culture Pending Resulted 02/10/17 03:45 Nasal Nares MRSA Culture - Final NO METHICILLIN RESISTANT STAPH AUREUS... Complete 02/10/17 03:45 Rectum VRE Culture - Final NO VANCOMYCIN RESISTANT ENTEROCOCCUS ... Complete Laboratory Tests 02/12/17 06:05: Urine Eosinophils None seen 02/12/17 16:45: Vancomycin Level Trough 17.0H Current Medications Medications (Trade) Dose Ordered Sig/Sharla Route PRN Reason Start Time Stop Time Status Last Admin Dose Admin Acetaminophen (Tylenol) 650 mg Q4H PRN ORAL T>100.5 02/11/17 19:30 03/13/17 19:29 Albuterol/ Ipratropium (DuoNeb 0.5-3(2.5)mg/3ml) 3 ml Q4H PRN HHN Shortness of Breath 02/11/17 19:30 02/16/17 19:29 Amlodipine Besylate (Norvasc) 5 mg DAILY ORAL 02/12/17 09:00 03/14/17 08:59 02/12/17 09:00 Cefepime HCl 2 gm/ Dextrose 110 ml @ 220 mls/hr Q24H IV 02/12/17 03:00 02/19/17 02:59 02/12/17 03:05 Clonidine HCl (Catapres) 0.1 mg Q4H PRN ORAL SBP > 160 02/11/17 19:30 03/13/17 19:29 Dextrose (Dextrose 50%) STAT PRN IV Hypoglycemia 02/11/17 19:30 03/13/17 19:29 Heparin Sodium (Porcine) (Heparin 5000 units/ml) 5,000 units EVERY 12 HOURS SUBQ 02/11/17 21:00 03/13/17 20:59 Methadone HCl (Methadone HCl) 80 mg DAILY ORAL 02/12/17 09:00 02/19/17 08:59 02/12/17 09:00 Metronidazole 100 ml @ 100 mls/hr Q6H IVPB 02/11/17 22:00 02/18/17 21:59 02/12/17 21:43 Morphine Sulfate (Morphine Sulfate) 2 mg Q4H PRN IVP Moderate Pain (Pain Scale 4-6) 02/11/17 19:30 02/18/17 19:29 02/12/17 02:59 Nitroglycerin (Ntg) 0.4 mg Q5M PRN SL Prn Chest Pain 02/11/17 19:15 03/13/17 19:14 Ondansetron HCl (Zofran) 4 mg Q6H PRN IVP Nausea & Vomiting 02/11/17 19:30 03/13/17 19:29 Polyethylene Glycol (Miralax) 17 gm DAILYPRN PRN ORAL Constipation 02/11/17 19:30 03/13/17 19:29 02/12/17 20:25 Sodium Chloride 1,000 ml @ 75 mls/hr [id number] IV 02/11/17 19:15 03/13/17 19:14 02/12/17 21:44 Temazepam (Restoril) 15 mg HSPRN PRN ORAL Insomnia 02/12/17 21:00 02/19/17 20:59 Vancomycin HCl (Vanco rx to dose) 1 ea DAILY PRN MISC PER RX PROTOCOL 02/11/17 19:30 03/13/17 19:29 Vancomycin HCl/ Dextrose (Vancomycin/D5W) 275 ml @ 183.333 mls/hr Q12HR@0600,1800 IVPB 02/12/17 06:00 02/17/17 05:59 02/12/17 18:18 RASHAAD GALLAGHER February 12, 2017 22:02
[2017-02-13] VITALS: BP 159/98
[2017-02-13] MEDS: Cefepime HCl 2 GM in D5W 110 ML IV SCH (02:28)
[2017-02-13] MEDS: metroNIDAZOLE 500mg 100 ML IVPB SCH ×4 (03:35→21:16)
[2017-02-13 04:00] VITALS: BP 147/95
[2017-02-13] MEDS: Vancomycin 1 GM in D5W 275 ML IVPB SCH ×2 (05:42→18:41)
[2017-02-13 07:33] LABS: BASOPHILS % (AUTO) 1.4 % (0.0-2.0); EOSINOPHILS % (AUTO) 3.8 % (0.0-3.0); LYMPHOCYTES % (AUTO) 49.4 % (20.0-45.0); MEAN CORPUSCULAR HEMOGLOBIN 34.2 PG (27.0-31.0); MEAN CORPUSCULAR HGB CONC 34.3 G/DL (32.0-36.0); MEAN CORPUSCULAR VOLUME 100 FL (80-99); MONOCYTES % (AUTO) 10.3 % (1.0-10.0); NEUTROPHILS % (AUTO) 35.1 % (45.0-75.0); PLATELET COUNT 101 K/UL (150-450); RED BLOOD COUNT 3.12 M/UL (4.70-6.10); RED CELL DISTRIBUTION WIDTH 13.2 % (11.6-14.8); WHITE BLOOD COUNT 6.4 K/UL (4.8-10.8)
[2017-02-13 07:51] VITALS: BP 153/90
[2017-02-13 08:01] LABS: ALANINE AMINOTRANSFERASE 45 U/L (3-41); ALBUMIN/GLOBULIN RATIO 0.3 (1.0-2.7); ANION GAP 12 (5-15); ASPARTATE AMINO TRANSFERASE 163 U/L (5-40); CALCIUM 8.4 mg/dL (8.6-10.2); CARBON DIOXIDE 24 mEQ/L (20-30); CHLORIDE 103 mEQ/L (98-107); CREATININE 1.3 mg/dL (0.7-1.2); CRP QUANT 0.9 mg/dL (< 0.5); GLOMERULAR FILTRATION RATE > 60 mL/min (>60); HEMOLYSIS 9; MAGNESIUM 1.8 mg/dL (1.7-2.5); SODIUM 139 mEQ/L (135-145); TOTAL PROTEIN 7.8 g/dL (6.6-8.7); URIC ACID 6.6 mg/dL (3.0-7.5)
[2017-02-13] MEDS: Heparin 5000 units/ml inj SUBQ SCH ×2 (09:00→21:17)
[2017-02-13] MEDS ORDERED: Sodium Bicarbonate 8.4% 50ml Inj IV ONE (09:30)
[2017-02-13] MEDS ORDERED: Lidocaine 1% Plain 30 ml INJ ONE (10:00)
[2017-02-13] MEDS ORDERED: Heparin 2000 units/Ns 1000ml IV ONE (10:00)
[2017-02-13 11:42] VITALS: BP 144/86
--- NOTE | 2017-02-13 12:13 | General Progress Note ---
Assessment/Plan Status: stable - from renal stand Status Narrative Cr 1.3 Assessment/Plan status: Renal Failure : Acute vs Chronic Cr lower Sepsis Cellulitis : bilateral lower extremity cellulitis, athletic foot, and possible right foot osteomyelitis. Gangrene Urine positive for Cocaine Anemia Proteinuria , HypoAlbuminemia Plan: no labs today Hydrate- BP control- Monitor renal parameters Urine studies 2D echo : Left ventricular ejection fraction estimated to be 60 %. antibiotics and skin care Subjective ROS Limited/Unobtainable: No Constitutional: Reports: malaise Allergies: Coded Allergies: PENICILLINS (Verified Allergy, Unknown, 02/10/17) Objective Last 24 Hour Vital Signs Date Time Temp Pulse Resp B/P Pulse Ox O2 Delivery O2 Flow Rate FiO2 02/13/17 11:42 97.9 60 20 144/86 99 Room Air 02/13/17 09:17 88 153/90 02/13/17 08:22 88 18 Room Air 21 02/13/17 07:51 97.7 57 20 153/90 99 Room Air 02/13/17 04:00 98.3 65 17 147/95 98 Room Air 02/13/17 00:00 98.1 64 17 159/98 99 Room Air 02/12/17 20:00 97.7 60 17 149/82 98 Room Air 02/12/17 19:00 93 20 Room Air 21 02/12/17 16:00 98.2 63 20 162/79 100 Room Air Intake and Output 02/12/17 02/13/17 19:00 07:00 Intake Total 1101.667 ml 2007.499 ml Output Total 900 ml Balance 1101.667 ml 1107.499 ml Intake Oral 200 ml 700 ml IV Total 901.667 ml 1307.499 ml Output Urine Total 900 ml Laboratory Tests 02/12/17 16:45: Vancomycin Level Trough 17.0H 02/12/17 23:37: Urine Eosinophils Positive 02/13/17 05:40: White Blood Count 6.4, Red Blood Count 3.12L, Hemoglobin 10.7L, Hematocrit 31.0L , Mean Corpuscular Volume 100H, Mean Corpuscular Hemoglobin 34.2H, Mean Corpuscular Hemoglobin Concent 34.3, Red Cell Distribution Width 13.2, Platelet Count 101L, Mean Platelet Volume 9.0, Neutrophils (%) (Auto) 35.1L, Lymphocytes (%) (Auto) 49.4H, Monocytes (%) (Auto) 10.3H, Eosinophils (%) (Auto) 3.8H, Basophils (%) (Auto) 1.4, Sodium Level 139, Potassium Level 4.0, Chloride Level 103, Carbon Dioxide Level 24, Anion Gap 12, Blood Urea Nitrogen 17, Creatinine 1.3H, Estimat Glomerular Filtration Rate > 60, Glucose Level 89, Uric Acid 6.6, Calcium Level 8.4L, Phosphorus Level 4.0, Magnesium Level 1.8, Total Bilirubin 0.6, Aspartate Amino Transf (AST/SGOT) 163H, Alanine Aminotransferase (ALT/SGPT ) 45H, Alkaline Phosphatase 90, Total Creatine Kinase 586H, C-Reactive Protein, Quantitative 0.9H, Pro-B-Type Natriuretic Peptide 801H, Total Protein 7.8, Albumin 2.1L, Globulin 5.7, Albumin/Globulin Ratio 0.3L, Hepatitis C Antibody [ Pending], Hepatitis C RNA (PCR) IUs/ml [Pending], Hepatitis C RNA (PCR) log IUs/ ml [Pending] Height (Feet): 6 Height (Inches): 3.00 Weight (Pounds): 245 General Appearance: no apparent distress, lethargic Respiratory/Chest: decreased breath sounds Abdomen: soft Objective PE no change MART MOREIRA February 13, 2017 12:13
[2017-02-13] MEDS: Miralax 17gm pkt ORAL PRN (16:03)
--- NOTE | 2017-02-13 16:09 | Podiatric Progress Note ---
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 Wounds have improved. Patient remains afebrile and leukocytosis has improved. Continue daily dressing changes. Antibiotics per infectious disease specialist recommendations. Okay to discharge with antibiotics. Patient will need placement since he is homeless. Subjective Reason for consult Bilateral foot wounds Procedure Performed 2 days status post bilateral hallux I&D with wound debridement and right hallux total nail avulsion Allergies: Coded Allergies: PENICILLINS (Verified Allergy, Unknown, 02/10/17) Subjective Patient states he is feeling much better. No nausea, vomiting, fevers, chills, or pain. Patient has been minimally ambulating to go to the restroom Objective Exam Last 24 Hour Vital Signs Date Time Temp Pulse Resp B/P Pulse Ox O2 Delivery O2 Flow Rate FiO2 02/13/17 11:42 97.9 60 20 144/86 99 Room Air 02/13/17 09:17 88 153/90 02/13/17 08:22 88 18 Room Air 21 02/13/17 07:51 97.7 57 20 153/90 99 Room Air 02/13/17 04:00 98.3 65 17 147/95 98 Room Air 02/13/17 00:00 98.1 64 17 159/98 99 Room Air 02/12/17 20:00 97.7 60 17 149/82 98 Room Air 02/12/17 19:00 93 20 Room Air 21 Laboratory Tests Test 02/12/17 16:45 02/12/17 23:37 02/13/17 05:40 Vancomycin Level Trough 17.0 ug/mL (5.0-12.0) H Urine Eosinophils Positive White Blood Count 6.4 K/UL (4.8-10.8) Red Blood Count 3.12 M/UL (4.70-6.10) L Hemoglobin 10.7 G/DL (14.2-18.0) L Hematocrit 31.0 % (42.0-52.0) L Mean Corpuscular Volume 100 FL (80-99) H Mean Corpuscular Hemoglobin 34.2 PG (27.0-31.0) H Mean Corpuscular Hemoglobin Concent 34.3 G/DL (32.0-36.0) Red Cell Distribution Width 13.2 % (11.6-14.8) Platelet Count 101 K/UL (150-450) L Mean Platelet Volume 9.0 FL (6.5-10.1) Neutrophils (%) (Auto) 35.1 % (45.0-75.0) L Lymphocytes (%) (Auto) 49.4 % (20.0-45.0) H Monocytes (%) (Auto) 10.3 % (1.0-10.0) H Eosinophils (%) (Auto) 3.8 % (0.0-3.0) H Basophils (%) (Auto) 1.4 % (0.0-2.0) Sodium Level 139 mEQ/L (135-145) Potassium Level 4.0 mEQ/L (3.4-4.9) Chloride Level 103 mEQ/L (98-107) Carbon Dioxide Level 24 mEQ/L (20-30) Anion Gap 12 (5-15) Blood Urea Nitrogen 17 mg/dL (7-23) Creatinine 1.3 mg/dL (0.7-1.2) H Estimat Glomerular Filtration Rate > 60 mL/min (>60) Glucose Level 89 mg/dL (74-106) Uric Acid 6.6 mg/dL (3.0-7.5) Calcium Level 8.4 mg/dL (8.6-10.2) L Phosphorus Level 4.0 mg/dL (2.5-4.8) Magnesium Level 1.8 mg/dL (1.7-2.5) Total Bilirubin 0.6 mg/dL (0.0-1.2) Aspartate Amino Transf (AST/SGOT) 163 U/L (5-40) H Alanine Aminotransferase (ALT/SGPT) 45 U/L (3-41) H Alkaline Phosphatase 90 U/L (40-129) Total Creatine Kinase 586 U/L (38-174) H C-Reactive Protein, Quantitative 0.9 mg/dL (< 0.5) H Pro-B-Type Natriuretic Peptide 801 pg/mL (0-125) H Total Protein 7.8 g/dL (6.6-8.7) Albumin 2.1 g/dL (3.5-5.2) L Globulin 5.7 g/dL Albumin/Globulin Ratio 0.3 (1.0-2.7) L Hepatitis C Antibody Pending Hepatitis C RNA (PCR) IUs/ml Pending Hepatitis C RNA (PCR) log IUs/ml Pending Microbiology Date/Time Source Procedure Growth Status 02/11/17 16:15 Blood Blood Culture - Preliminary NO GROWTH AFTER 24 HOURS Resulted 02/11/17 19:00 Wound Gram Stain - Preliminary Resulted 02/11/17 19:00 Wound Wound Culture Pending Resulted 02/11/17 19:00 Wound Aerobic Culture Pending Resulted 02/11/17 19:00 Wound Anaerobic Culture Pending Resulted 02/10/17 03:45 Nasal Nares MRSA Culture - Final NO METHICILLIN RESISTANT STAPH AUREUS... Complete 02/10/17 03:45 Rectum VRE Culture - Final NO VANCOMYCIN RESISTANT ENTEROCOCCUS ... Complete Exam Narrative Bilateral foot wounds are stable. No purulence or malodor noted. Surrounding erythema and edema has improved. Faheem Rubin DPM February 13, 2017 16:09
--- NOTE | 2017-02-13 16:27 | Infectious Diseases Prog Note ---
Assessment/Plan Assessment/Plan ASSESSMENT: 61-year-old male with: Bilateral lower extremity cellulitis, and osteomyelitis of the right foot - WCx pending I&D was performed at bedside of bilateral hallux abscess 02/11 MRI : Acute osteomyelitis suspected with regard to the first distal phalange , second distal phalange, and proximal fifth phalange Polymicrobial ( CONS 2/4, Diptheroids 1/4 ) bacteremia, possible contaminant - repeat BCx 02/11 NGTD Transaminitis Hep C Ab+, PCR pending HIV neg Fever x1 - resolved Leukocytosis - resolved Renal Failure : Acute vs Chronic Cr lower HTN U tox +ve for cocaine and opiates PCN allergy Full Code PLAN: Continue IV vancomycin, cefepime and Flagyl d# f/u repeat blood culture. f/u Wnd culture f/u Hepatitis C PCR Monitor liver function tests Monitor CBC and BMP wound care Subjective Allergies: Coded Allergies: PENICILLINS (Verified Allergy, Unknown, 02/10/17) Subjective remains afebrile Objective Vital Signs Last 24 Hour Vital Signs Date Time Temp Pulse Resp B/P Pulse Ox O2 Delivery O2 Flow Rate FiO2 02/13/17 11:42 97.9 60 20 144/86 99 Room Air 02/13/17 09:17 88 153/90 02/13/17 08:22 88 18 Room Air 21 02/13/17 07:51 97.7 57 20 153/90 99 Room Air 02/13/17 04:00 98.3 65 17 147/95 98 Room Air 02/13/17 00:00 98.1 64 17 159/98 99 Room Air 02/12/17 20:00 97.7 60 17 149/82 98 Room Air 02/12/17 19:00 93 20 Room Air 21 Height (Feet): 6 Height (Inches): 3.00 Weight (Pounds): 245 Microbiology Date/Time Source Procedure Growth Status 02/11/17 16:15 Blood Blood Culture - Preliminary NO GROWTH AFTER 24 HOURS Resulted 02/11/17 16:10 Blood Blood Culture - Preliminary NO GROWTH AFTER 24 HOURS Resulted 02/11/17 19:00 Wound Gram Stain - Preliminary Resulted 02/11/17 19:00 Wound Wound Culture Pending Resulted 02/11/17 19:00 Wound Aerobic Culture Pending Resulted 02/11/17 19:00 Wound Anaerobic Culture Pending Resulted Laboratory Tests Test 02/12/17 16:45 02/12/17 23:37 02/13/17 05:40 Vancomycin Level Trough 17.0 ug/mL (5.0-12.0) H Urine Eosinophils Positive White Blood Count 6.4 K/UL (4.8-10.8) Red Blood Count 3.12 M/UL (4.70-6.10) L Hemoglobin 10.7 G/DL (14.2-18.0) L Hematocrit 31.0 % (42.0-52.0) L Mean Corpuscular Volume 100 FL (80-99) H Mean Corpuscular Hemoglobin 34.2 PG (27.0-31.0) H Mean Corpuscular Hemoglobin Concent 34.3 G/DL (32.0-36.0) Red Cell Distribution Width 13.2 % (11.6-14.8) Platelet Count 101 K/UL (150-450) L Mean Platelet Volume 9.0 FL (6.5-10.1) Neutrophils (%) (Auto) 35.1 % (45.0-75.0) L Lymphocytes (%) (Auto) 49.4 % (20.0-45.0) H Monocytes (%) (Auto) 10.3 % (1.0-10.0) H Eosinophils (%) (Auto) 3.8 % (0.0-3.0) H Basophils (%) (Auto) 1.4 % (0.0-2.0) Sodium Level 139 mEQ/L (135-145) Potassium Level 4.0 mEQ/L (3.4-4.9) Chloride Level 103 mEQ/L (98-107) Carbon Dioxide Level 24 mEQ/L (20-30) Anion Gap 12 (5-15) Blood Urea Nitrogen 17 mg/dL (7-23) Creatinine 1.3 mg/dL (0.7-1.2) H Estimat Glomerular Filtration Rate > 60 mL/min (>60) Glucose Level 89 mg/dL (74-106) Uric Acid 6.6 mg/dL (3.0-7.5) Calcium Level 8.4 mg/dL (8.6-10.2) L Phosphorus Level 4.0 mg/dL (2.5-4.8) Magnesium Level 1.8 mg/dL (1.7-2.5) Total Bilirubin 0.6 mg/dL (0.0-1.2) Aspartate Amino Transf (AST/SGOT) 163 U/L (5-40) H Alanine Aminotransferase (ALT/SGPT) 45 U/L (3-41) H Alkaline Phosphatase 90 U/L (40-129) Total Creatine Kinase 586 U/L (38-174) H C-Reactive Protein, Quantitative 0.9 mg/dL (< 0.5) H Pro-B-Type Natriuretic Peptide 801 pg/mL (0-125) H Total Protein 7.8 g/dL (6.6-8.7) Albumin 2.1 g/dL (3.5-5.2) L Globulin 5.7 g/dL Albumin/Globulin Ratio 0.3 (1.0-2.7) L Hepatitis C Antibody Pending Hepatitis C RNA (PCR) IUs/ml Pending Hepatitis C RNA (PCR) log IUs/ml Pending Current Medications Medications (Trade) Dose Ordered Sig/Sharla Route PRN Reason Start Time Stop Time Status Last Admin Dose Admin Acetaminophen (Tylenol) 650 mg Q4H PRN ORAL T>100.5 02/11/17 19:30 03/13/17 19:29 Albuterol/ Ipratropium (DuoNeb 0.5-3(2.5)mg/3ml) 3 ml Q4H PRN HHN Shortness of Breath 02/11/17 19:30 02/16/17 19:29 Amlodipine Besylate (Norvasc) 5 mg DAILY ORAL 02/12/17 09:00 03/14/17 08:59 02/13/17 09:17 Bisacodyl (Dulcolax) 10 mg DAILYPRN PRN RECTAL Constipation 02/13/17 12:15 03/15/17 12:14 02/13/17 13:30 Cefepime HCl 2 gm/ Dextrose 110 ml @ 220 mls/hr Q24H IV 02/12/17 03:00 02/19/17 02:59 02/13/17 02:28 Clonidine HCl (Catapres) 0.1 mg Q4H PRN ORAL SBP > 160 02/11/17 19:30 03/13/17 19:29 Dextrose (Dextrose 50%) STAT PRN IV Hypoglycemia 02/11/17 19:30 03/13/17 19:29 Heparin Sodium (Porcine) (Heparin 5000 units/ml) 5,000 units EVERY 12 HOURS SUBQ 02/11/17 21:00 03/13/17 20:59 Methadone HCl (Methadone HCl) 80 mg DAILY ORAL 02/12/17 09:00 02/19/17 08:59 02/13/17 09:16 Metronidazole 100 ml @ 100 mls/hr Q6H IVPB 02/11/17 22:00 02/18/17 21:59 02/13/17 16:01 Morphine Sulfate (Morphine Sulfate) 2 mg Q4H PRN IVP Moderate Pain (Pain Scale 4-6) 02/11/17 19:30 02/18/17 19:29 02/12/17 02:59 Nitroglycerin (Ntg) 0.4 mg Q5M PRN SL Prn Chest Pain 02/11/17 19:15 03/13/17 19:14 Ondansetron HCl (Zofran) 4 mg Q6H PRN IVP Nausea & Vomiting 02/11/17 19:30 03/13/17 19:29 Polyethylene Glycol (Miralax) 17 gm DAILYPRN PRN ORAL Constipation 02/11/17 19:30 03/13/17 19:29 02/13/17 16:03 Sodium Chloride 1,000 ml @ 75 mls/hr [id number] IV 02/11/17 19:15 03/13/17 19:14 02/13/17 11:15 Temazepam (Restoril) 15 mg HSPRN PRN ORAL Insomnia 02/12/17 21:00 02/19/17 20:59 Vancomycin HCl (Vanco rx to dose) 1 ea DAILY PRN MISC PER RX PROTOCOL 02/11/17 19:30 03/13/17 19:29 Vancomycin HCl/ Dextrose (Vancomycin/D5W) 275 ml @ 183.333 mls/hr Q12HR@0600,1800 IVPB 02/12/17 06:00 02/17/17 05:59 02/13/17 05:42 TRISTAN GARCIA February 13, 2017 16:27
[2017-02-13 16:34] VITALS: BP 154/86
[2017-02-13 20:00] VITALS: BP 144/85
--- NOTE | 2017-02-13 23:31 | Pulmonology Progress Note ---
Assessment/Plan Problems: (1) Sepsis (2) Gangrene (3) Homelessness (4) Drug abuse Assessment/Plan iv abx wbc decreasing renal function improving Med/surg Subjective ROS Limited/Unobtainable: No Allergies: Coded Allergies: PENICILLINS (Verified Allergy, Unknown, 02/10/17) Objective Last 24 Hour Vital Signs Date Time Temp Pulse Resp B/P Pulse Ox O2 Delivery O2 Flow Rate FiO2 02/13/17 20:07 87 18 Room Air 21 02/13/17 20:00 97.7 72 18 144/85 Room Air 02/13/17 16:34 97.9 63 18 154/86 98 Room Air 02/13/17 11:42 97.9 60 20 144/86 99 Room Air 02/13/17 09:17 88 153/90 02/13/17 08:22 88 18 Room Air 21 02/13/17 07:51 97.7 57 20 153/90 99 Room Air 02/13/17 04:00 98.3 65 17 147/95 98 Room Air 02/13/17 00:00 98.1 64 17 159/98 99 Room Air Intake and Output 02/12/17 02/13/17 19:00 07:00 Intake Total 1101.667 ml 2007.499 ml Output Total 900 ml Balance 1101.667 ml 1107.499 ml Intake Oral 200 ml 700 ml IV Total 901.667 ml 1307.499 ml Output Urine Total 900 ml Objective General Appearance: WD/WN HEENT: normocephalic Respiratory/Chest: chest wall non-tender, lungs clear Cardiovascular: normal peripheral pulses, regular rhythm Abdomen: normal bowel sounds, soft, non tender Genitourinary: normal external genitalia Extremities: no cyanosis, clean dressing on feet Microbiology Date/Time Source Procedure Growth Status 02/11/17 16:15 Blood Blood Culture - Preliminary NO GROWTH AFTER 24 HOURS Resulted 02/11/17 16:10 Blood Blood Culture - Preliminary NO GROWTH AFTER 24 HOURS Resulted 02/11/17 19:00 Wound Gram Stain - Preliminary Resulted 02/11/17 19:00 Wound Wound Culture Pending Resulted 02/11/17 19:00 Wound Aerobic Culture Pending Resulted 02/11/17 19:00 Wound Anaerobic Culture Pending Resulted Laboratory Tests 02/12/17 23:37: Urine Eosinophils Positive 02/13/17 05:40: White Blood Count 6.4, Red Blood Count 3.12L, Hemoglobin 10.7L, Hematocrit 31.0L , Mean Corpuscular Volume 100H, Mean Corpuscular Hemoglobin 34.2H, Mean Corpuscular Hemoglobin Concent 34.3, Red Cell Distribution Width 13.2, Platelet Count 101L, Mean Platelet Volume 9.0, Neutrophils (%) (Auto) 35.1L, Lymphocytes (%) (Auto) 49.4H, Monocytes (%) (Auto) 10.3H, Eosinophils (%) (Auto) 3.8H, Basophils (%) (Auto) 1.4, Sodium Level 139, Potassium Level 4.0, Chloride Level 103, Carbon Dioxide Level 24, Anion Gap 12, Blood Urea Nitrogen 17, Creatinine 1.3H, Estimat Glomerular Filtration Rate > 60, Glucose Level 89, Uric Acid 6.6, Calcium Level 8.4L, Phosphorus Level 4.0, Magnesium Level 1.8, Total Bilirubin 0.6, Aspartate Amino Transf (AST/SGOT) 163H, Alanine Aminotransferase (ALT/SGPT ) 45H, Alkaline Phosphatase 90, Total Creatine Kinase 586H, C-Reactive Protein, Quantitative 0.9H, Pro-B-Type Natriuretic Peptide 801H, Total Protein 7.8, Albumin 2.1L, Globulin 5.7, Albumin/Globulin Ratio 0.3L, Hepatitis C Antibody [ Pending], Hepatitis C RNA (PCR) IUs/ml [Pending], Hepatitis C RNA (PCR) log IUs/ ml [Pending] Current Medications Medications (Trade) Dose Ordered Sig/Sharla Route PRN Reason Start Time Stop Time Status Last Admin Dose Admin Acetaminophen (Tylenol) 650 mg Q4H PRN ORAL T>100.5 02/11/17 19:30 03/13/17 19:29 Albuterol/ Ipratropium (DuoNeb 0.5-3(2.5)mg/3ml) 3 ml Q4H PRN HHN Shortness of Breath 02/11/17 19:30 02/16/17 19:29 Amlodipine Besylate (Norvasc) 5 mg DAILY ORAL 02/12/17 09:00 03/14/17 08:59 02/13/17 09:17 Bisacodyl (Dulcolax) 10 mg DAILYPRN PRN RECTAL Constipation 02/13/17 12:15 03/15/17 12:14 02/13/17 13:30 Cefepime HCl 2 gm/ Dextrose 110 ml @ 220 mls/hr Q24H IV 02/12/17 03:00 02/19/17 02:59 02/13/17 02:28 Clonidine HCl (Catapres) 0.1 mg Q4H PRN ORAL SBP > 160 02/11/17 19:30 03/13/17 19:29 Dextrose (Dextrose 50%) STAT PRN IV Hypoglycemia 02/11/17 19:30 03/13/17 19:29 Heparin Sodium (Porcine) (Heparin 5000 units/ml) 5,000 units EVERY 12 HOURS SUBQ 02/11/17 21:00 03/13/17 20:59 02/13/17 21:17 Methadone HCl (Methadone HCl) 80 mg DAILY ORAL 02/12/17 09:00 02/19/17 08:59 02/13/17 09:16 Metronidazole 100 ml @ 100 mls/hr Q6H IVPB 02/11/17 22:00 02/18/17 21:59 02/13/17 21:16 Morphine Sulfate (Morphine Sulfate) 2 mg Q4H PRN IVP Moderate Pain (Pain Scale 4-6) 02/11/17 19:30 02/18/17 19:29 02/12/17 02:59 Nitroglycerin (Ntg) 0.4 mg Q5M PRN SL Prn Chest Pain 02/11/17 19:15 03/13/17 19:14 Ondansetron HCl (Zofran) 4 mg Q6H PRN IVP Nausea & Vomiting 02/11/17 19:30 03/13/17 19:29 Polyethylene Glycol (Miralax) 17 gm DAILYPRN PRN ORAL Constipation 02/11/17 19:30 03/13/17 19:29 02/13/17 16:03 Sodium Chloride 1,000 ml @ 75 mls/hr [id number] IV 02/11/17 19:15 03/13/17 19:14 02/13/17 11:15 Temazepam (Restoril) 15 mg HSPRN PRN ORAL Insomnia 02/12/17 21:00 02/19/17 20:59 Vancomycin HCl (Vanco rx to dose) 1 ea DAILY PRN MISC PER RX PROTOCOL 02/11/17 19:30 03/13/17 19:29 Vancomycin HCl/ Dextrose (Vancomycin/D5W) 275 ml @ 183.333 mls/hr Q12HR@0600,1800 IVPB 02/12/17 06:00 02/17/17 05:59 02/13/17 18:41 RASHAAD GALLAGHER February 13, 2017 23:31
[2017-02-14] VITALS: BP 139/78
[2017-02-14] MEDS: Cefepime HCl 2 GM in D5W 110 ML IV SCH (02:52)
[2017-02-14] MEDS: metroNIDAZOLE 500mg 100 ML IVPB SCH ×4 (03:58→22:15)
[2017-02-14 04:00] VITALS: BP 139/72
[2017-02-14] MEDS: Vancomycin 1 GM in D5W 275 ML IVPB SCH ×2 (05:31→17:58)
[2017-02-14 08:15] VITALS: BP 162/104
[2017-02-14] MEDS: Heparin 5000 units/ml inj SUBQ SCH ×2 (09:02→21:00)
--- NOTE | 2017-02-14 09:56 | General Progress Note ---
Assessment/Plan Status: stable - from renal stand point Assessment/Plan status: Renal Failure : Acute vs Chronic Cr lower Sepsis Cellulitis : bilateral lower extremity cellulitis, athletic foot, and possible right foot osteomyelitis. Gangrene Urine positive for Cocaine Anemia Proteinuria , HypoAlbuminemia Plan: no labs today Hydrate- BP control- Monitor renal parameters Urine studies 2D echo : Left ventricular ejection fraction estimated to be 60 %. antibiotics and skin care Subjective ROS Limited/Unobtainable: No Constitutional: Reports: malaise Allergies: Coded Allergies: PENICILLINS (Verified Allergy, Unknown, 02/10/17) Objective Last 24 Hour Vital Signs Date Time Temp Pulse Resp B/P Pulse Ox O2 Delivery O2 Flow Rate FiO2 02/14/17 08:58 72 162/104 02/14/17 08:15 98.2 72 22 162/104 97 Room Air 02/14/17 04:00 97.2 77 18 139/72 99 Room Air 02/14/17 00:00 98.0 77 18 139/78 99 Room Air 02/13/17 20:07 87 18 Room Air 21 02/13/17 20:00 97.7 72 18 144/85 Room Air 02/13/17 16:34 97.9 63 18 154/86 98 Room Air 02/13/17 11:42 97.9 60 20 144/86 99 Room Air Intake and Output 02/13/17 02/14/17 19:00 07:00 Intake Total 720 ml 700 ml Output Total 850 ml 2100 ml Balance -130 ml -1400 ml Intake Oral 720 ml IV Total 700 ml Output Urine Total 850 ml 2100 ml Height (Feet): 6 Height (Inches): 3.00 Weight (Pounds): 245 General Appearance: no apparent distress Objective PE no change MART MOREIRA February 14, 2017 09:56
[2017-02-14 11:59] VITALS: BP 165/96
[2017-02-14 16:00] VITALS: BP 152/94
[2017-02-14 20:00] VITALS: BP 159/94
[2017-02-14] MEDS: Miralax 17gm pkt ORAL PRN (20:14)
--- NOTE | 2017-02-14 20:26 | Infectious Diseases Prog Note ---
Assessment/Plan Assessment/Plan ASSESSMENT: 61-year-old male with: Bilateral lower extremity cellulitis, and osteomyelitis of the right foot - WCx GAS.pyogenes, diptheroids I&D was performed at bedside of bilateral hallux abscess 02/11 MRI : Acute osteomyelitis suspected with regard to the first distal phalange , second distal phalange, and proximal fifth phalange Polymicrobial ( CONS 2/4, Diptheroids 1/4 ) bacteremia, possible contaminant - repeat BCx 02/11 NGTD Transaminitis Hep C Ab+, PCR pending HIV neg Fever x1 - resolved Leukocytosis - recurrent, mild, resolved Renal Failure : Acute vs Chronic Cr lower HTN U tox +ve for cocaine and opiates PCN allergy Full Code PLAN: Continue IV vancomycin, cefepime and Flagyl d# f/u repeat blood culture. f/u Wnd culture f/u Hepatitis C PCR Monitor liver function tests Monitor CBC and BMP wound care Subjective Allergies: Coded Allergies: PENICILLINS (Verified Allergy, Unknown, 02/10/17) Subjective remains afebrile Objective Vital Signs Last 24 Hour Vital Signs Date Time Temp Pulse Resp B/P Pulse Ox O2 Delivery O2 Flow Rate FiO2 02/14/17 19:58 96 20 Room Air 21 02/14/17 16:00 98.3 64 22 152/94 99 Room Air 02/14/17 11:59 97.6 78 21 165/96 99 Room Air 02/14/17 09:56 89 18 Room Air 21 02/14/17 08:58 72 162/104 02/14/17 08:15 98.2 72 22 162/104 97 Room Air 02/14/17 04:00 97.2 77 18 139/72 99 Room Air 02/14/17 00:00 98.0 77 18 139/78 99 Room Air Height (Feet): 6 Height (Inches): 3.00 Weight (Pounds): 245 General Appearance: no acute distress Respiratory/Chest: no respiratory distress Cardiovascular: normal rate, regular rhythm Abdomen: normal bowel sounds, soft, non tender, non distended Current Medications Medications (Trade) Dose Ordered Sig/Sharla Route PRN Reason Start Time Stop Time Status Last Admin Dose Admin Acetaminophen (Tylenol) 650 mg Q4H PRN ORAL T>100.5 02/11/17 19:30 03/13/17 19:29 Albuterol/ Ipratropium (DuoNeb 0.5-3(2.5)mg/3ml) 3 ml Q4H PRN HHN Shortness of Breath 02/11/17 19:30 02/16/17 19:29 Amlodipine Besylate (Norvasc) 5 mg DAILY ORAL 02/12/17 09:00 03/14/17 08:59 02/14/17 08:58 Bisacodyl (Dulcolax) 10 mg DAILYPRN PRN RECTAL Constipation 02/13/17 12:15 03/15/17 12:14 02/13/17 13:30 Cefepime HCl 2 gm/ Dextrose 110 ml @ 220 mls/hr Q24H IV 02/12/17 03:00 02/19/17 02:59 02/14/17 02:52 Clonidine HCl (Catapres) 0.1 mg Q4H PRN ORAL SBP > 160 02/11/17 19:30 03/13/17 19:29 Dextrose (Dextrose 50%) STAT PRN IV Hypoglycemia 02/11/17 19:30 03/13/17 19:29 Heparin Sodium (Porcine) (Heparin 5000 units/ml) 5,000 units EVERY 12 HOURS SUBQ 02/11/17 21:00 03/13/17 20:59 02/14/17 09:02 Methadone HCl (Methadone HCl) 80 mg DAILY ORAL 02/12/17 09:00 02/19/17 08:59 02/14/17 08:58 Metronidazole 100 ml @ 100 mls/hr Q6H IVPB 02/11/17 22:00 02/18/17 21:59 02/14/17 15:21 Morphine Sulfate (Morphine Sulfate) 2 mg Q4H PRN IVP Moderate Pain (Pain Scale 4-6) 02/11/17 19:30 02/18/17 19:29 02/12/17 02:59 Nitroglycerin (Ntg) 0.4 mg Q5M PRN SL Prn Chest Pain 02/11/17 19:15 03/13/17 19:14 Ondansetron HCl (Zofran) 4 mg Q6H PRN IVP Nausea & Vomiting 02/11/17 19:30 03/13/17 19:29 Polyethylene Glycol (Miralax) 17 gm DAILYPRN PRN ORAL Constipation 02/11/17 19:30 03/13/17 19:29 02/14/17 20:14 Sodium Chloride 1,000 ml @ 75 mls/hr [id number] IV 02/11/17 19:15 03/13/17 19:14 02/14/17 15:21 Temazepam (Restoril) 15 mg HSPRN PRN ORAL Insomnia 02/12/17 21:00 02/19/17 20:59 Vancomycin HCl (Vanco rx to dose) 1 ea DAILY PRN MISC PER RX PROTOCOL 02/11/17 19:30 03/13/17 19:29 Vancomycin HCl/ Dextrose (Vancomycin/D5W) 275 ml @ 183.333 mls/hr Q12HR@0600,1800 IVPB 02/12/17 06:00 02/17/17 05:59 02/14/17 17:58 TRISTAN GARCIA February 14, 2017 20:26
--- NOTE | 2017-02-14 22:40 | Pulmonology Progress Note ---
Assessment/Plan Problems: (1) Sepsis (2) Gangrene (3) Homelessness (4) Drug abuse Assessment/Plan iv abx wbc decreasing renal function improving Med/surg awaiting dc planning Subjective ROS Limited/Unobtainable: No Allergies: Coded Allergies: PENICILLINS (Verified Allergy, Unknown, 02/10/17) Objective Last 24 Hour Vital Signs Date Time Temp Pulse Resp B/P Pulse Ox O2 Delivery O2 Flow Rate FiO2 02/14/17 20:00 98.2 65 20 159/94 98 Room Air 02/14/17 19:58 96 20 Room Air 21 02/14/17 16:00 98.3 64 22 152/94 99 Room Air 02/14/17 11:59 97.6 78 21 165/96 99 Room Air 02/14/17 09:56 89 18 Room Air 21 02/14/17 08:58 72 162/104 02/14/17 08:15 98.2 72 22 162/104 97 Room Air 02/14/17 04:00 97.2 77 18 139/72 99 Room Air 02/14/17 00:00 98.0 77 18 139/78 99 Room Air Intake and Output 02/13/17 02/14/17 19:00 07:00 Intake Total 720 ml 775 ml Output Total 850 ml 2100 ml Balance -130 ml -1325 ml Intake Oral 720 ml IV Total 775 ml Output Urine Total 850 ml 2100 ml Objective General Appearance: WD/WN HEENT: normocephalic Respiratory/Chest: chest wall non-tender, lungs clear Cardiovascular: normal peripheral pulses, regular rhythm Abdomen: normal bowel sounds, soft, non tender Genitourinary: normal external genitalia Extremities: no cyanosis, clean dressing on feet Current Medications Medications (Trade) Dose Ordered Sig/Sharla Route PRN Reason Start Time Stop Time Status Last Admin Dose Admin Acetaminophen (Tylenol) 650 mg Q4H PRN ORAL T>100.5 02/11/17 19:30 03/13/17 19:29 Albuterol/ Ipratropium (DuoNeb 0.5-3(2.5)mg/3ml) 3 ml Q4H PRN HHN Shortness of Breath 02/11/17 19:30 02/16/17 19:29 Amlodipine Besylate (Norvasc) 5 mg DAILY ORAL 02/12/17 09:00 03/14/17 08:59 02/14/17 08:58 Bisacodyl (Dulcolax) 10 mg DAILYPRN PRN RECTAL Constipation 02/13/17 12:15 03/15/17 12:14 02/13/17 13:30 Cefepime HCl 2 gm/ Dextrose 110 ml @ 220 mls/hr Q24H IV 02/12/17 03:00 02/19/17 02:59 02/14/17 02:52 Clonidine HCl (Catapres) 0.1 mg Q4H PRN ORAL SBP > 160 02/11/17 19:30 03/13/17 19:29 Dextrose (Dextrose 50%) STAT PRN IV Hypoglycemia 02/11/17 19:30 03/13/17 19:29 Heparin Sodium (Porcine) (Heparin 5000 units/ml) 5,000 units EVERY 12 HOURS SUBQ 02/11/17 21:00 03/13/17 20:59 02/14/17 09:02 Methadone HCl (Methadone HCl) 80 mg DAILY ORAL 02/12/17 09:00 02/19/17 08:59 02/14/17 08:58 Metronidazole 100 ml @ 100 mls/hr Q6H IVPB 02/11/17 22:00 02/18/17 21:59 02/14/17 22:15 Morphine Sulfate (Morphine Sulfate) 2 mg Q4H PRN IVP Moderate Pain (Pain Scale 4-6) 02/11/17 19:30 02/18/17 19:29 02/12/17 02:59 Nitroglycerin (Ntg) 0.4 mg Q5M PRN SL Prn Chest Pain 02/11/17 19:15 03/13/17 19:14 Ondansetron HCl (Zofran) 4 mg Q6H PRN IVP Nausea & Vomiting 02/11/17 19:30 03/13/17 19:29 Polyethylene Glycol (Miralax) 17 gm DAILYPRN PRN ORAL Constipation 02/11/17 19:30 03/13/17 19:29 02/14/17 20:14 Sodium Chloride 1,000 ml @ 75 mls/hr [id number] IV 02/11/17 19:15 03/13/17 19:14 02/14/17 15:21 Temazepam (Restoril) 15 mg HSPRN PRN ORAL Insomnia 02/12/17 21:00 02/19/17 20:59 Vancomycin HCl (Vanco rx to dose) 1 ea DAILY PRN MISC PER RX PROTOCOL 02/11/17 19:30 03/13/17 19:29 Vancomycin HCl/ Dextrose (Vancomycin/D5W) 275 ml @ 183.333 mls/hr Q12HR@0600,1800 IVPB 02/12/17 06:00 02/17/17 05:59 02/14/17 17:58 RASHAAD GALLAGHER February 14, 2017 22:40
[2017-02-15] VITALS (7 sets, daily range): BP systolic 138–175; BP diastolic 80–95
[2017-02-15] MEDS: Morphine Sulfate 2mg/ml Inj IVP PRN ×2 (00:59→12:23)
[2017-02-15] MEDS: Cefepime HCl 2 GM in D5W 110 ML IV SCH (02:37)
[2017-02-15] MEDS: metroNIDAZOLE 500mg 100 ML IVPB SCH ×4 (03:40→21:45)
[2017-02-15] MEDS: Vancomycin 1 GM in D5W 275 ML IVPB SCH ×2 (05:30→19:16)
[2017-02-15] MEDS: Heparin 5000 units/ml inj SUBQ SCH ×2 (08:48→21:00)
[2017-02-15] MEDS ORDERED: Tubing IV Secondary IV ONE (09:28)
--- NOTE | 2017-02-15 10:52 | General Progress Note ---
Assessment/Plan Status: stable Assessment/Plan status: Renal Failure : Acute vs Chronic Cr lower Sepsis Cellulitis : bilateral lower extremity cellulitis, athletic foot, and possible right foot osteomyelitis. Gangrene Urine positive for Cocaine Anemia Proteinuria , HypoAlbuminemia Plan: no labs today Hydrate- BP control- Monitor renal parameters Urine studies 2D echo : Left ventricular ejection fraction estimated to be 60 %. antibiotics and skin care Subjective ROS Limited/Unobtainable: No Constitutional: Reports: malaise Allergies: Coded Allergies: PENICILLINS (Verified Allergy, Unknown, 02/10/17) Objective Last 24 Hour Vital Signs Date Time Temp Pulse Resp B/P Pulse Ox O2 Delivery O2 Flow Rate FiO2 02/15/17 08:56 97.9 69 15 160/90 98 Room Air 02/15/17 08:52 88 158/82 02/15/17 08:11 97 16 Room Air 02/15/17 06:30 88 20 158/82 Room Air 02/15/17 05:54 170/80 02/15/17 04:00 99.3 76 20 170/80 99 Room Air 02/15/17 00:00 98.6 74 20 138/95 95 Room Air 02/14/17 20:00 98.2 65 20 159/94 98 Room Air 02/14/17 19:58 96 20 Room Air 21 02/14/17 16:00 98.3 64 22 152/94 99 Room Air 02/14/17 11:59 97.6 78 21 165/96 99 Room Air Intake and Output 02/14/17 02/15/17 19:00 07:00 Intake Total 2065 ml 1335 ml Output Total 800 ml 1200 ml Balance 1265 ml 135 ml Intake Oral 1200 ml 350 ml IV Total 865 ml 985 ml Output Urine Total 800 ml 1200 ml # Bowel Movements 2 Height (Feet): 6 Height (Inches): 3.00 Weight (Pounds): 245 General Appearance: no apparent distress Objective PE no change MART MOREIRA February 15, 2017 10:52
--- NOTE | 2017-02-15 18:38 | Infectious Diseases Prog Note ---
Assessment/Plan Assessment/Plan ASSESSMENT: 61-year-old male with: Bilateral lower extremity cellulitis, and osteomyelitis of the right foot - WCx GAS.pyogenes, diptheroids I&D was performed at bedside of bilateral hallux abscess 02/11 MRI : Acute osteomyelitis suspected with regard to the first distal phalange , second distal phalange, and proximal fifth phalange Polymicrobial ( CONS 2/4, Diptheroids 1/4 ) bacteremia, possible contaminant - repeat BCx 02/11 NGTD Transaminitis Hep C Ab+, PCR pending HIV neg Fever x1 - resolved Leukocytosis - recurrent, mild, resolved Renal Failure : Acute vs Chronic Cr lower HTN U tox +ve for cocaine and opiates Homeless PCN allergy Full Code PLAN: Continue IV vancomycin, cefepime and Flagyl d# f/u repeat blood culture. f/u Wnd culture f/u Hepatitis C PCR Monitor liver function tests Monitor CBC and BMP wound care Subjective Allergies: Coded Allergies: PENICILLINS (Verified Allergy, Unknown, 02/10/17) Subjective remains afebrile Objective Vital Signs Last 24 Hour Vital Signs Date Time Temp Pulse Resp B/P Pulse Ox O2 Delivery O2 Flow Rate FiO2 02/15/17 16:39 175/94 02/15/17 15:40 97.7 60 14 175/94 98 Room Air 02/15/17 12:53 97.7 02/15/17 12:22 165/93 02/15/17 12:00 97.3 67 15 165/93 99 Room Air 02/15/17 08:56 97.9 69 15 160/90 98 Room Air 02/15/17 08:52 88 158/82 02/15/17 08:11 97 16 Room Air 21 02/15/17 06:30 88 20 158/82 Room Air 02/15/17 05:54 170/80 02/15/17 04:00 99.3 76 20 170/80 99 Room Air 02/15/17 00:00 98.6 74 20 138/95 95 Room Air 02/14/17 20:00 98.2 65 20 159/94 98 Room Air 02/14/17 19:58 96 20 Room Air 21 Height (Feet): 6 Height (Inches): 3.00 Weight (Pounds): 245 General Appearance: no acute distress Respiratory/Chest: no respiratory distress Cardiovascular: normal rate, regular rhythm Abdomen: normal bowel sounds, soft, non tender, non distended Extremities: other - wounds bandaged Current Medications Medications (Trade) Dose Ordered Sig/Sharla Route PRN Reason Start Time Stop Time Status Last Admin Dose Admin Acetaminophen (Tylenol) 650 mg Q4H PRN ORAL T>100.5 02/11/17 19:30 03/13/17 19:29 Albuterol/ Ipratropium (DuoNeb 0.5-3(2.5)mg/3ml) 3 ml Q4H PRN HHN Shortness of Breath 02/11/17 19:30 02/16/17 19:29 Amlodipine Besylate (Norvasc) 5 mg DAILY ORAL 02/12/17 09:00 03/14/17 08:59 02/15/17 08:52 Bisacodyl (Dulcolax) 10 mg DAILYPRN PRN RECTAL Constipation 02/13/17 12:15 03/15/17 12:14 02/13/17 13:30 Cefepime HCl 2 gm/ Dextrose 110 ml @ 220 mls/hr Q24H IV 02/12/17 03:00 02/19/17 02:59 02/15/17 02:37 Clonidine HCl (Catapres) 0.1 mg Q4H PRN ORAL SBP > 160 02/11/17 19:30 03/13/17 19:29 02/15/17 16:39 Dextrose (Dextrose 50%) STAT PRN IV Hypoglycemia 02/11/17 19:30 03/13/17 19:29 Heparin Sodium (Porcine) (Heparin 5000 units/ml) 5,000 units EVERY 12 HOURS SUBQ 02/11/17 21:00 03/13/17 20:59 02/14/17 09:02 Methadone HCl (Methadone HCl) 80 mg DAILY ORAL 02/12/17 09:00 02/19/17 08:59 02/15/17 08:51 Metronidazole 100 ml @ 100 mls/hr Q6H IVPB 02/11/17 22:00 02/18/17 21:59 02/15/17 16:38 Morphine Sulfate (Morphine Sulfate) 2 mg Q4H PRN IVP Moderate Pain (Pain Scale 4-6) 02/11/17 19:30 02/18/17 19:29 02/15/17 12:23 Nitroglycerin (Ntg) 0.4 mg Q5M PRN SL Prn Chest Pain 02/11/17 19:15 03/13/17 19:14 Ondansetron HCl (Zofran) 4 mg Q6H PRN IVP Nausea & Vomiting 02/11/17 19:30 03/13/17 19:29 Polyethylene Glycol (Miralax) 17 gm DAILYPRN PRN ORAL Constipation 02/11/17 19:30 03/13/17 19:29 02/14/17 20:14 Sodium Chloride 1,000 ml @ 75 mls/hr [id number] IV 02/11/17 19:15 03/13/17 19:14 02/15/17 04:21 Temazepam (Restoril) 15 mg HSPRN PRN ORAL Insomnia 02/12/17 21:00 02/19/17 20:59 Vancomycin HCl (Vanco rx to dose) 1 ea DAILY PRN MISC PER RX PROTOCOL 02/11/17 19:30 03/13/17 19:29 Vancomycin HCl/ Dextrose (Vancomycin/D5W) 275 ml @ 183.333 mls/hr Q12HR@0600,1800 IVPB 02/12/17 06:00 02/17/17 05:59 02/15/17 05:30 TRISTAN GARCIA February 15, 2017 18:38
--- NOTE | 2017-02-15 22:12 | Pulmonology Progress Note ---
Assessment/Plan Problems: (1) Sepsis (2) Gangrene (3) Homelessness (4) Drug abuse Assessment/Plan iv abx wbc decreasing renal function improving Med/surg all notes reviewed Subjective ROS Limited/Unobtainable: No Allergies: Coded Allergies: PENICILLINS (Verified Allergy, Unknown, 02/10/17) Objective Last 24 Hour Vital Signs Date Time Temp Pulse Resp B/P Pulse Ox O2 Delivery O2 Flow Rate FiO2 02/15/17 20:19 70 18 Room Air 21 02/15/17 20:00 98.2 71 20 155/85 99 Room Air 02/15/17 16:39 175/94 02/15/17 15:40 97.7 60 14 175/94 98 Room Air 02/15/17 12:53 97.7 02/15/17 12:22 165/93 02/15/17 12:00 97.3 67 15 165/93 99 Room Air 02/15/17 08:56 97.9 69 15 160/90 98 Room Air 02/15/17 08:52 88 158/82 02/15/17 08:11 97 16 Room Air 21 02/15/17 06:30 88 20 158/82 Room Air 02/15/17 05:54 170/80 02/15/17 04:00 99.3 76 20 170/80 99 Room Air 02/15/17 00:00 98.6 74 20 138/95 95 Room Air Intake and Output 02/14/17 02/15/17 19:00 07:00 Intake Total 2065 ml 1610 ml Output Total 800 ml 1200 ml Balance 1265 ml 410 ml Intake Oral 1200 ml 350 ml IV Total 865 ml 1260 ml Output Urine Total 800 ml 1200 ml # Bowel Movements 2 Objective General Appearance: WD/WN HEENT: normocephalic Respiratory/Chest: chest wall non-tender, lungs clear Cardiovascular: normal peripheral pulses, regular rhythm Abdomen: normal bowel sounds, soft, non tender Genitourinary: normal external genitalia Extremities: no cyanosis, clean dressing on feet Current Medications Medications (Trade) Dose Ordered Sig/Sharla Route PRN Reason Start Time Stop Time Status Last Admin Dose Admin Acetaminophen (Tylenol) 650 mg Q4H PRN ORAL T>100.5 02/11/17 19:30 03/13/17 19:29 Albuterol/ Ipratropium (DuoNeb 0.5-3(2.5)mg/3ml) 3 ml Q4H PRN HHN Shortness of Breath 02/11/17 19:30 02/16/17 19:29 Amlodipine Besylate (Norvasc) 5 mg DAILY ORAL 02/12/17 09:00 03/14/17 08:59 02/15/17 08:52 Bisacodyl (Dulcolax) 10 mg DAILYPRN PRN RECTAL Constipation 02/13/17 12:15 03/15/17 12:14 02/13/17 13:30 Cefepime HCl 2 gm/ Dextrose 110 ml @ 220 mls/hr Q24H IV 02/12/17 03:00 02/19/17 02:59 02/15/17 02:37 Clonidine HCl (Catapres) 0.1 mg Q4H PRN ORAL SBP > 160 02/11/17 19:30 03/13/17 19:29 02/15/17 16:39 Dextrose (Dextrose 50%) STAT PRN IV Hypoglycemia 02/11/17 19:30 03/13/17 19:29 Heparin Sodium (Porcine) (Heparin 5000 units/ml) 5,000 units EVERY 12 HOURS SUBQ 02/11/17 21:00 03/13/17 20:59 02/14/17 09:02 Methadone HCl (Methadone HCl) 80 mg DAILY ORAL 02/12/17 09:00 02/19/17 08:59 02/15/17 08:51 Metronidazole 100 ml @ 100 mls/hr Q6H IVPB 02/11/17 22:00 02/18/17 21:59 02/15/17 21:45 Morphine Sulfate (Morphine Sulfate) 2 mg Q4H PRN IVP Moderate Pain (Pain Scale 4-6) 02/11/17 19:30 02/18/17 19:29 02/15/17 12:23 Nitroglycerin (Ntg) 0.4 mg Q5M PRN SL Prn Chest Pain 02/11/17 19:15 03/13/17 19:14 Ondansetron HCl (Zofran) 4 mg Q6H PRN IVP Nausea & Vomiting 02/11/17 19:30 03/13/17 19:29 Polyethylene Glycol (Miralax) 17 gm DAILYPRN PRN ORAL Constipation 02/11/17 19:30 03/13/17 19:29 02/14/17 20:14 Sodium Chloride 1,000 ml @ 75 mls/hr [id number] IV 02/11/17 19:15 03/13/17 19:14 02/15/17 04:21 Temazepam (Restoril) 15 mg HSPRN PRN ORAL Insomnia 02/12/17 21:00 02/19/17 20:59 Vancomycin HCl (Vanco rx to dose) 1 ea DAILY PRN MISC PER RX PROTOCOL 02/11/17 19:30 03/13/17 19:29 Vancomycin HCl/ Dextrose (Vancomycin/D5W) 275 ml @ 183.333 mls/hr Q12HR@0600,1800 IVPB 02/12/17 06:00 02/17/17 05:59 02/15/17 19:16 RASHAAD GALLAGHER February 15, 2017 22:12
[2017-02-15] MEDS: Miralax 17gm pkt ORAL PRN (23:54)
[2017-02-16] VITALS (8 sets, daily range): BP systolic 139–178; BP diastolic 76–96
[2017-02-16] MEDS: Cefepime HCl 2 GM in D5W 110 ML IV SCH (02:46)
[2017-02-16] MEDS: metroNIDAZOLE 500mg 100 ML IVPB SCH ×4 (03:30→20:55)
[2017-02-16] MEDS: Vancomycin 1 GM in D5W 275 ML IVPB SCH (05:19)
[2017-02-16 07:18] LABS: ALANINE AMINOTRANSFERASE 39 U/L (3-41); ALBUMIN/GLOBULIN RATIO 0.3 (1.0-2.7); ANION GAP 11 (5-15); ASPARTATE AMINO TRANSFERASE 130 U/L (5-40); CALCIUM 8.4 mg/dL (8.6-10.2); CARBON DIOXIDE 25 mEQ/L (20-30); CHLORIDE 100 mEQ/L (98-107); CRP QUANT 0.8 mg/dL (< 0.5); GLOMERULAR FILTRATION RATE > 60 mL/min (>60); HEMOLYSIS 1; MAGNESIUM 1.7 mg/dL (1.7-2.5); PHOSPHORUS 2.8 mg/dL (2.5-4.8); POTASSIUM 4.4 mEQ/L (3.4-4.9); SODIUM 136 mEQ/L (135-145); TOTAL PROTEIN 8.2 g/dL (6.6-8.7); URIC ACID 5.3 mg/dL (3.0-7.5)
[2017-02-16 07:21] LABS: MEAN CORPUSCULAR HEMOGLOBIN 35.1 PG (27.0-31.0); MEAN CORPUSCULAR HGB CONC 34.9 G/DL (32.0-36.0); MEAN CORPUSCULAR VOLUME 100 FL (80-99); MEAN PLATELET VOLUME 8.5 FL (6.5-10.1); PLATELET COUNT 89 K/UL (150-450); RED BLOOD COUNT 2.81 M/UL (4.70-6.10); RED CELL DISTRIBUTION WIDTH 13.1 % (11.6-14.8); WHITE BLOOD COUNT 6.2 K/UL (4.8-10.8)
[2017-02-16] MEDS: Miralax 17gm pkt ORAL PRN (08:08)
--- NOTE | 2017-02-16 08:48 | Diagnostic Imaging Report ---
Indications: Long-term central IV access required for intravenous therapy Technique: The procedure indications, risks, and alternatives were explained to the patient's family who understands and gives consent to proceed. Strict aseptic technique was utilized, including hand washing, use of hat and mask, use of sterile gown and gloves, sterile ultrasound gel and probe cover, prepping of left arm skin with 2% chlorhexidine solution, and application of full body sterile barrier over this area. Skin and subcutaneous soft tissues were infiltrated with 1% lidocaine and sodium bicarbonate. A small dermatotomy was made, through which the larger of two patent, adequate size left brachial veins was punctured percutaneously under direct sonographic guidance with a 21-gauge needle . Exchange was made over a 0.018 inch guidewire for a 5 Bengali peel-away sheath. A [email or web address] Power-PICC 5 Bengali dual lumen central venous catheter was cut to appropriate length, then advanced through the sheath over the guidewire under direct fluoroscopic guidance into the superior vena cava. Guidewire and sheath were removed. Both catheter ports were aspirated, then flushed with heparinized saline. Final image was obtained. Catheter was secured the skin with adhesive dressing. Patient tolerated procedure well without immediate complications. Total fluoroscopy time: 0.2 minutes. Dose-area product: 6.8 dGy-cm2 Findings: Final image demonstrates tip of the central venous catheter at the level of superior vena cava-right atrial junction, 43 cm in from the skin. Both ports aspirate and flush freely. IMPRESSION: Placement of peripherally inserted central venous catheter via left brachial vein, working well.
[2017-02-16] MEDS: Heparin 5000 units/ml inj SUBQ SCH ×2 (09:00→20:47)
[2017-02-16 09:01] LABS: BAND NEUTROPHILS % (MANUAL) 0 % (0-8); BASOPHILS % (MANUAL) 0 % (0-2); EOSINOPHILS % (MANUAL) 2 % (0-3); HYPOCHROMASIA 1+; LYMPHOCYTES % (MANUAL) 32 % (20-45); MACROCYTES 1+; NEUTROPHILS % (MANUAL) 58 % (45-75); PLATELET ESTIMATE DECREASED; PLATELET MORPHOLOGY NORMAL; TOTAL CELLS COUNTED 100
--- NOTE | 2017-02-16 09:15 | Infectious Diseases Prog Note ---
Assessment/Plan Assessment/Plan ASSESSMENT: 61-year-old male with: Bilateral lower extremity cellulitis, and osteomyelitis of the right foot - WCx GAS.pyogenes, ( diptheroids: colonizer ) I&D was performed at bedside of bilateral hallux abscess 02/11 MRI : Acute osteomyelitis suspected with regard to the first distal phalange , second distal phalange, and proximal fifth phalange Polymicrobial ( CONS 2/4, Diptheroids 1/4 ) bacteremia, possible contaminant - repeat BCx 02/11 NGTD Transaminitis Hep C Ab+, PCR pending HIV neg Fever x1 - resolved Leukocytosis - SP PICC 02/11 Renal Failure r , SP HTN U tox +ve for cocaine and opiates Homeless PCN allergy Full Code PLAN: Continue IV cefepime and Flagyl d# 7 / 42 and DC vancomycin d# 7 f/u repeat blood culture. f/u Hepatitis C PCR Monitor liver function tests Monitor CBC and BMP wound care HIV :P Subjective Constitutional: Denies: anorexia, chills, drenching sweats, fatigue, fever, no symptoms, other Allergies: Coded Allergies: PENICILLINS (Verified Allergy, Unknown, 02/10/17) Subjective afebrile Objective Vital Signs Last 24 Hour Vital Signs Date Time Temp Pulse Resp B/P Pulse Ox O2 Delivery O2 Flow Rate FiO2 02/16/17 08:00 99.3 83 19 178/94 99 Room Air 02/16/17 04:00 98.0 85 18 151/82 99 Room Air 02/16/17 00:50 85 152/86 02/16/17 00:04 163/76 02/16/17 00:00 97.9 79 20 163/76 98 Room Air 02/15/17 20:19 70 18 Room Air 21 02/15/17 20:00 98.2 71 20 155/85 99 Room Air 02/15/17 16:39 175/94 02/15/17 15:40 97.7 60 14 175/94 98 Room Air 02/15/17 12:53 97.7 02/15/17 12:22 165/93 02/15/17 12:00 97.3 67 15 165/93 99 Room Air Height (Feet): 6 Height (Inches): 3.00 Weight (Pounds): 245 HEENT: anicteric Respiratory/Chest: normal breath sounds Cardiovascular: regular rhythm Abdomen: soft, non tender Laboratory Tests Test 02/16/17 05:45 White Blood Count 6.2 K/UL (4.8-10.8) Red Blood Count 2.81 M/UL (4.70-6.10) L Hemoglobin 9.9 G/DL (14.2-18.0) L Hematocrit 28.2 % (42.0-52.0) L Mean Corpuscular Volume 100 FL (80-99) H Mean Corpuscular Hemoglobin 35.1 PG (27.0-31.0) H Mean Corpuscular Hemoglobin Concent 34.9 G/DL (32.0-36.0) Red Cell Distribution Width 13.1 % (11.6-14.8) Platelet Count 89 K/UL (150-450) L Mean Platelet Volume 8.5 FL (6.5-10.1) Neutrophils (%) (Auto) % (45.0-75.0) Lymphocytes (%) (Auto) % (20.0-45.0) Monocytes (%) (Auto) % (1.0-10.0) Eosinophils (%) (Auto) % (0.0-3.0) Basophils (%) (Auto) % (0.0-2.0) Differential Total Cells Counted 100 Neutrophils % (Manual) 58 % (45-75) Lymphocytes % (Manual) 32 % (20-45) Monocytes % (Manual) 8 % (1-10) Eosinophils % (Manual) 2 % (0-3) Basophils % (Manual) 0 % (0-2) Band Neutrophils 0 % (0-8) Platelet Estimate Decreased L Platelet Morphology Normal Hypochromasia 1+ Macrocytosis 1+ Sodium Level 136 mEQ/L (135-145) Potassium Level 4.4 mEQ/L (3.4-4.9) Chloride Level 100 mEQ/L (98-107) Carbon Dioxide Level 25 mEQ/L (20-30) Anion Gap 11 (5-15) Blood Urea Nitrogen 17 mg/dL (7-23) Creatinine 1.0 mg/dL (0.7-1.2) Estimat Glomerular Filtration Rate > 60 mL/min (>60) Glucose Level 65 mg/dL (74-106) L Uric Acid 5.3 mg/dL (3.0-7.5) Calcium Level 8.4 mg/dL (8.6-10.2) L Phosphorus Level 2.8 mg/dL (2.5-4.8) Magnesium Level 1.7 mg/dL (1.7-2.5) Total Bilirubin 0.9 mg/dL (0.0-1.2) Aspartate Amino Transf (AST/SGOT) 130 U/L (5-40) H Alanine Aminotransferase (ALT/SGPT) 39 U/L (3-41) Alkaline Phosphatase 80 U/L (40-129) C-Reactive Protein, Quantitative 0.8 mg/dL (< 0.5) H Pro-B-Type Natriuretic Peptide 768 pg/mL (0-125) H Total Protein 8.2 g/dL (6.6-8.7) Albumin 2.0 g/dL (3.5-5.2) L Globulin 6.2 g/dL Albumin/Globulin Ratio 0.3 (1.0-2.7) L Current Medications Medications (Trade) Dose Ordered Sig/Sharla Route PRN Reason Start Time Stop Time Status Last Admin Dose Admin Acetaminophen (Tylenol) 650 mg Q4H PRN ORAL T>100.5 02/11/17 19:30 03/13/17 19:29 Albuterol/ Ipratropium (DuoNeb 0.5-3(2.5)mg/3ml) 3 ml Q4H PRN HHN Shortness of Breath 02/11/17 19:30 02/16/17 19:29 Amlodipine Besylate (Norvasc) 5 mg DAILY ORAL 02/12/17 09:00 03/14/17 08:59 02/15/17 08:52 Bisacodyl (Dulcolax) 10 mg DAILYPRN PRN RECTAL Constipation 02/13/17 12:15 03/15/17 12:14 02/13/17 13:30 Cefepime HCl 2 gm/ Dextrose 110 ml @ 220 mls/hr Q24H IV 02/12/17 03:00 02/19/17 02:59 02/16/17 02:46 Clonidine HCl (Catapres) 0.1 mg Q4H PRN ORAL SBP > 160 02/11/17 19:30 03/13/17 19:29 02/16/17 00:04 Dextrose (Dextrose 50%) STAT PRN IV Hypoglycemia 02/11/17 19:30 03/13/17 19:29 Heparin Sodium (Porcine) (Heparin 5000 units/ml) 5,000 units EVERY 12 HOURS SUBQ 02/11/17 21:00 03/13/17 20:59 02/14/17 09:02 Methadone HCl (Methadone HCl) 80 mg DAILY ORAL 02/12/17 09:00 02/19/17 08:59 02/16/17 08:07 Metronidazole 100 ml @ 100 mls/hr Q6H IVPB 02/11/17 22:00 02/18/17 21:59 02/16/17 03:30 Morphine Sulfate (Morphine Sulfate) 2 mg Q4H PRN IVP Moderate Pain (Pain Scale 4-6) 02/11/17 19:30 02/18/17 19:29 02/15/17 12:23 Nitroglycerin (Ntg) 0.4 mg Q5M PRN SL Prn Chest Pain 02/11/17 19:15 03/13/17 19:14 Ondansetron HCl (Zofran) 4 mg Q6H PRN IVP Nausea & Vomiting 02/11/17 19:30 03/13/17 19:29 Polyethylene Glycol (Miralax) 17 gm DAILYPRN PRN ORAL Constipation 02/11/17 19:30 03/13/17 19:29 02/16/17 08:08 Sodium Chloride 1,000 ml @ 75 mls/hr [id number] IV 02/11/17 19:15 03/13/17 19:14 02/16/17 02:01 Temazepam (Restoril) 15 mg HSPRN PRN ORAL Insomnia 02/12/17 21:00 02/19/17 20:59 Vancomycin HCl (Vanco rx to dose) 1 ea DAILY PRN MISC PER RX PROTOCOL 02/11/17 19:30 03/13/17 19:29 Vancomycin HCl/ Dextrose (Vancomycin/D5W) 275 ml @ 183.333 mls/hr Q12HR@0600,1800 IVPB 02/12/17 06:00 02/17/17 05:59 02/16/17 05:19 YODIT CASTAÑEDA M.D. February 16, 2017 09:15
--- NOTE | 2017-02-16 19:04 | General Progress Note ---
Assessment/Plan Status: stable Assessment/Plan status: Renal Failure : Acute vs Chronic Cr lower Sepsis Cellulitis : bilateral lower extremity cellulitis, athletic foot, and possible right foot osteomyelitis. Gangrene Urine positive for Cocaine Anemia Proteinuria , HypoAlbuminemia Plan: stable from renal stand BP control- Monitor renal parameters Urine studies 2D echo : Left ventricular ejection fraction estimated to be 60 %. antibiotics and skin care Subjective ROS Limited/Unobtainable: No Constitutional: Reports: malaise, weakness Allergies: Coded Allergies: PENICILLINS (Verified Allergy, Unknown, 02/10/17) Objective Last 24 Hour Vital Signs Date Time Temp Pulse Resp B/P Pulse Ox O2 Delivery O2 Flow Rate FiO2 02/16/17 18:15 71 139/92 02/16/17 16:00 97.0 71 18 139/92 98 Room Air 02/16/17 12:00 97.4 78 18 157/96 78 Room Air 02/16/17 09:49 178/94 02/16/17 09:14 75 178/94 02/16/17 08:00 99.3 83 19 178/94 99 Room Air 02/16/17 07:00 81 17 Room Air 21 02/16/17 04:00 98.0 85 18 151/82 99 Room Air 02/16/17 00:50 85 152/86 02/16/17 00:04 163/76 02/16/17 00:00 97.9 79 20 163/76 98 Room Air 02/15/17 20:19 70 18 Room Air 21 02/15/17 20:00 98.2 71 20 155/85 99 Room Air Intake and Output 02/15/17 02/16/17 19:00 07:00 Intake Total 875 ml 1210.000 ml Output Total 1500 ml Balance 875 ml -290.000 ml Intake Oral 200 ml IV Total 875 ml 1010.000 ml Output Urine Total 1500 ml Laboratory Tests 02/16/17 05:45: White Blood Count 6.2, Red Blood Count 2.81L, Hemoglobin 9.9L, Hematocrit 28.2L , Mean Corpuscular Volume 100H, Mean Corpuscular Hemoglobin 35.1H, Mean Corpuscular Hemoglobin Concent 34.9, Red Cell Distribution Width 13.1, Platelet Count 89L, Mean Platelet Volume 8.5, Neutrophils (%) (Auto) , Lymphocytes (%) ( Auto) , Monocytes (%) (Auto) , Eosinophils (%) (Auto) , Basophils (%) (Auto) , Differential Total Cells Counted 100, Neutrophils % (Manual) 58, Lymphocytes % ( Manual) 32, Monocytes % (Manual) 8, Eosinophils % (Manual) 2, Basophils % ( Manual) 0, Band Neutrophils 0, Platelet Estimate DecreasedL, Platelet Morphology Normal, Hypochromasia 1+, Macrocytosis 1+, Sodium Level 136, Potassium Level 4.4, Chloride Level 100, Carbon Dioxide Level 25, Anion Gap 11, Blood Urea Nitrogen 17, Creatinine 1.0, Estimat Glomerular Filtration Rate > 60 , Glucose Level 65L, Uric Acid 5.3, Calcium Level 8.4L, Phosphorus Level 2.8, Magnesium Level 1.7, Total Bilirubin 0.9, Aspartate Amino Transf (AST/SGOT) 130H , Alanine Aminotransferase (ALT/SGPT) 39, Alkaline Phosphatase 80, C-Reactive Protein, Quantitative 0.8H, Pro-B-Type Natriuretic Peptide 768H, Total Protein 8.2, Albumin 2.0L, Globulin 6.2, Albumin/Globulin Ratio 0.3L Height (Feet): 6 Height (Inches): 3.00 Weight (Pounds): 245 General Appearance: no apparent distress Objective PE no change MART MOREIRA February 16, 2017 19:04
--- NOTE | 2017-02-16 19:37 | Pulmonology Progress Note ---
Assessment/Plan Problems: (1) Sepsis (2) Gangrene (3) Homelessness (4) Drug abuse Assessment/Plan iv abx wbc decreasing renal function improving Med/surg all notes reviewed dc planning in process Subjective ROS Limited/Unobtainable: No Constitutional: Reports: no symptoms HEENT: Repors: no symptoms Allergies: Coded Allergies: PENICILLINS (Verified Allergy, Unknown, 02/10/17) Objective Last 24 Hour Vital Signs Date Time Temp Pulse Resp B/P Pulse Ox O2 Delivery O2 Flow Rate FiO2 02/16/17 18:15 71 139/92 02/16/17 16:00 97.0 71 18 139/92 98 Room Air 02/16/17 12:00 97.4 78 18 157/96 78 Room Air 02/16/17 09:49 178/94 02/16/17 09:14 75 178/94 02/16/17 08:00 99.3 83 19 178/94 99 Room Air 02/16/17 07:00 81 17 Room Air 21 02/16/17 04:00 98.0 85 18 151/82 99 Room Air 02/16/17 00:50 85 152/86 02/16/17 00:04 163/76 02/16/17 00:00 97.9 79 20 163/76 98 Room Air 02/15/17 20:19 70 18 Room Air 21 02/15/17 20:00 98.2 71 20 155/85 99 Room Air Intake and Output 02/15/17 02/16/17 19:00 07:00 Intake Total 875 ml 1210.000 ml Output Total 1500 ml Balance 875 ml -290.000 ml Intake Oral 200 ml IV Total 875 ml 1010.000 ml Output Urine Total 1500 ml Objective General Appearance: WD/WN HEENT: normocephalic Respiratory/Chest: chest wall non-tender, lungs clear Cardiovascular: normal peripheral pulses, regular rhythm Abdomen: normal bowel sounds, soft, non tender Genitourinary: normal external genitalia Extremities: no cyanosis, clean dressing on feet Laboratory Tests 02/16/17 05:45: White Blood Count 6.2, Red Blood Count 2.81L, Hemoglobin 9.9L, Hematocrit 28.2L , Mean Corpuscular Volume 100H, Mean Corpuscular Hemoglobin 35.1H, Mean Corpuscular Hemoglobin Concent 34.9, Red Cell Distribution Width 13.1, Platelet Count 89L, Mean Platelet Volume 8.5, Neutrophils (%) (Auto) , Lymphocytes (%) ( Auto) , Monocytes (%) (Auto) , Eosinophils (%) (Auto) , Basophils (%) (Auto) , Differential Total Cells Counted 100, Neutrophils % (Manual) 58, Lymphocytes % ( Manual) 32, Monocytes % (Manual) 8, Eosinophils % (Manual) 2, Basophils % ( Manual) 0, Band Neutrophils 0, Platelet Estimate DecreasedL, Platelet Morphology Normal, Hypochromasia 1+, Macrocytosis 1+, Sodium Level 136, Potassium Level 4.4, Chloride Level 100, Carbon Dioxide Level 25, Anion Gap 11, Blood Urea Nitrogen 17, Creatinine 1.0, Estimat Glomerular Filtration Rate > 60 , Glucose Level 65L, Uric Acid 5.3, Calcium Level 8.4L, Phosphorus Level 2.8, Magnesium Level 1.7, Total Bilirubin 0.9, Aspartate Amino Transf (AST/SGOT) 130H , Alanine Aminotransferase (ALT/SGPT) 39, Alkaline Phosphatase 80, C-Reactive Protein, Quantitative 0.8H, Pro-B-Type Natriuretic Peptide 768H, Total Protein 8.2, Albumin 2.0L, Globulin 6.2, Albumin/Globulin Ratio 0.3L Current Medications Medications (Trade) Dose Ordered Sig/Sharla Route PRN Reason Start Time Stop Time Status Last Admin Dose Admin Acetaminophen (Tylenol) 650 mg Q4H PRN ORAL T>100.5 02/11/17 19:30 03/13/17 19:29 Amlodipine Besylate (Norvasc) 5 mg BID ORAL 02/16/17 18:00 03/18/17 17:59 02/16/17 18:15 Ascorbic Acid (Vitamin C) 500 mg DAILY ORAL 02/17/17 09:00 03/19/17 08:59 Bisacodyl (Dulcolax) 10 mg DAILYPRN PRN RECTAL Constipation 02/13/17 12:15 03/15/17 12:14 02/13/17 13:30 Cefepime HCl 2 gm/ Dextrose 110 ml @ 220 mls/hr Q24H IV 02/12/17 03:00 02/19/17 02:59 02/16/17 02:46 Clonidine HCl (Catapres) 0.1 mg Q4H PRN ORAL SBP > 160 02/11/17 19:30 03/13/17 19:29 02/16/17 09:49 Dextrose (Dextrose 50%) STAT PRN IV Hypoglycemia 02/11/17 19:30 03/13/17 19:29 Heparin Sodium (Porcine) (Heparin 5000 units/ml) 5,000 units EVERY 12 HOURS SUBQ 02/11/17 21:00 03/13/17 20:59 02/14/17 09:02 Methadone HCl (Methadone HCl) 80 mg DAILY ORAL 02/12/17 09:00 02/19/17 08:59 02/16/17 08:07 Metronidazole 100 ml @ 100 mls/hr Q6H IVPB 02/11/17 22:00 02/18/17 21:59 02/16/17 15:37 Morphine Sulfate (Morphine Sulfate) 2 mg Q4H PRN IVP Moderate Pain (Pain Scale 4-6) 02/11/17 19:30 02/18/17 19:29 02/15/17 12:23 Multivitamins (Multivitamins) 1 tab DAILY ORAL 02/17/17 09:00 03/19/17 08:59 Nitroglycerin (Ntg) 0.4 mg Q5M PRN SL Prn Chest Pain 02/11/17 19:15 03/13/17 19:14 Ondansetron HCl (Zofran) 4 mg Q6H PRN IVP Nausea & Vomiting 02/11/17 19:30 03/13/17 19:29 Polyethylene Glycol (Miralax) 17 gm DAILYPRN PRN ORAL Constipation 02/11/17 19:30 03/13/17 19:29 02/16/17 08:08 Sodium Chloride (Sodium Chloride 1000ml bag) 1,000 ml @ 75 mls/hr [id number] IV 02/11/17 19:15 03/13/17 19:14 02/16/17 19:28 Temazepam (Restoril) 15 mg HSPRN PRN ORAL Insomnia 02/12/17 21:00 02/19/17 20:59 RASHAAD GALLAGHER February 16, 2017 19:37
[2017-02-16] MEDS ORDERED: D5W 275ml ONE (21:29)
[2017-02-16] MEDS ORDERED: Tubing IV Secondary IV ONE (21:29)
[2017-02-17] MEDS: Cefepime HCl 2 GM in D5W 110 ML IV SCH (02:16)
[2017-02-17 04:00] VITALS: BP 163/88
[2017-02-17] MEDS: metroNIDAZOLE 500mg 100 ML IVPB SCH ×4 (04:03→21:33)
[2017-02-17] MEDS: Miralax 17gm pkt ORAL PRN (04:45)
[2017-02-17 08:27] VITALS: BP 156/93
[2017-02-17] MEDS: Heparin 5000 units/ml inj SUBQ SCH ×2 (09:00→21:00)
[2017-02-17] MEDS: Ascorbic Acid 500mg tab ORAL SCH (09:33)
--- NOTE | 2017-02-17 10:14 | Infectious Diseases Prog Note ---
Assessment/Plan Assessment/Plan ASSESSMENT: 61-year-old male with: Bilateral lower extremity cellulitis, and osteomyelitis of the right foot - WCx GAS.pyogenes, ( diptheroids: colonizer ) I&D was performed at bedside of bilateral hallux abscess 02/11 MRI : Acute osteomyelitis suspected with regard to the first distal phalange , second distal phalange, and proximal fifth phalange Polymicrobial ( CONS 2/4, Diptheroids 1/4 ) bacteremia, possible contaminant - repeat BCx 02/11 NGTD Transaminitis Hep C Ab+, PCR pending HIV neg Fever x1 - resolved Leukocytosis - SP PICC 02/11 Renal Failure r , SP HTN U tox +ve for cocaine and opiates Homeless PCN allergy Full Code PLAN: Continue IV cefepime and Flagyl d# 8 / ( vancomycin d# 7 ) f/u repeat blood culture. f/u Hepatitis C PCR Monitor liver function tests Monitor CBC and BMP wound care Subjective Constitutional: Denies: anorexia, chills, drenching sweats, fatigue, fever, no symptoms, other Allergies: Coded Allergies: PENICILLINS (Verified Allergy, Unknown, 02/10/17) Subjective afebrile Objective Vital Signs Last 24 Hour Vital Signs Date Time Temp Pulse Resp B/P Pulse Ox O2 Delivery O2 Flow Rate FiO2 02/17/17 09:33 72 156/93 02/17/17 08:27 98.2 72 20 156/93 93 Room Air 02/17/17 04:39 163/88 02/17/17 04:00 98.1 70 18 163/88 99 Room Air 02/16/17 23:40 98.3 70 18 148/92 96 Room Air 02/16/17 20:13 60 18 Room Air 21 02/16/17 20:00 98.6 64 18 141/90 99 Room Air 02/16/17 18:15 71 139/92 02/16/17 16:00 97.0 71 18 139/92 98 Room Air 02/16/17 12:00 97.4 78 18 157/96 78 Room Air Height (Feet): 6 Height (Inches): 3.00 Weight (Pounds): 245 HEENT: anicteric Respiratory/Chest: normal breath sounds Cardiovascular: regular rhythm Abdomen: no organomegaly Current Medications Medications (Trade) Dose Ordered Sig/Sharla Route PRN Reason Start Time Stop Time Status Last Admin Dose Admin Acetaminophen (Tylenol) 650 mg Q4H PRN ORAL T>100.5 02/11/17 19:30 03/13/17 19:29 Amlodipine Besylate (Norvasc) 5 mg BID ORAL 02/16/17 18:00 03/18/17 17:59 02/17/17 09:33 Ascorbic Acid (Vitamin C) 500 mg DAILY ORAL 02/17/17 09:00 03/19/17 08:59 02/17/17 09:33 Bisacodyl (Dulcolax) 10 mg DAILYPRN PRN RECTAL Constipation 02/13/17 12:15 03/15/17 12:14 02/13/17 13:30 Cefepime HCl 2 gm/ Dextrose 110 ml @ 220 mls/hr Q24H IV 02/12/17 03:00 02/19/17 02:59 02/17/17 02:16 Clonidine HCl (Catapres) 0.1 mg Q4H PRN ORAL SBP > 160 02/11/17 19:30 03/13/17 19:29 02/17/17 04:39 Dextrose (Dextrose 50%) STAT PRN IV Hypoglycemia 02/11/17 19:30 03/13/17 19:29 Heparin Sodium (Porcine) (Heparin 5000 units/ml) 5,000 units EVERY 12 HOURS SUBQ 02/11/17 21:00 03/13/17 20:59 02/14/17 09:02 Methadone HCl (Methadone HCl) 80 mg DAILY ORAL 02/12/17 09:00 02/19/17 08:59 02/17/17 09:33 Metronidazole 100 ml @ 100 mls/hr Q6H IVPB 02/11/17 22:00 02/18/17 21:59 02/17/17 09:33 Morphine Sulfate (Morphine Sulfate) 2 mg Q4H PRN IVP Moderate Pain (Pain Scale 4-6) 02/11/17 19:30 02/18/17 19:29 02/15/17 12:23 Multivitamins (Multivitamins) 1 tab DAILY ORAL 02/17/17 09:00 03/19/17 08:59 02/17/17 09:33 Nitroglycerin (Ntg) 0.4 mg Q5M PRN SL Prn Chest Pain 02/11/17 19:15 03/13/17 19:14 Ondansetron HCl (Zofran) 4 mg Q6H PRN IVP Nausea & Vomiting 02/11/17 19:30 03/13/17 19:29 Polyethylene Glycol (Miralax) 17 gm DAILYPRN PRN ORAL Constipation 02/11/17 19:30 03/13/17 19:29 02/17/17 04:45 Sodium Chloride (Sodium Chloride 1000ml bag) 1,000 ml @ 75 mls/hr [id number] IV 02/11/17 19:15 03/13/17 19:14 02/17/17 08:00 Temazepam (Restoril) 15 mg HSPRN PRN ORAL Insomnia 02/12/17 21:00 02/19/17 20:59 YODIT CASTAÑEDA M.D. February 17, 2017 10:14
--- NOTE | 2017-02-17 10:27 | Wound Care Consultation ---
Wound Assessment Wound Assessment #1: Wound Number: #1 Wound Present on Admission: Yes New Wound: No Status Change of Wound: No Wound Location Body Site Modif: left, plantar Wound Location Body Site: foot - big toe and planter 1st toe Wound Type: abscess - cellulitis scattered Amanda Test: Does not Amanda Wound Thickness: Full Thickness Wound Drainage Description: Serosanguineous Wound Drainage Amount: Moderate Wound Drainage Odor: None/Absent Tissue Surrounding Wound: Indurated Wound General Appearance: Reddened, Draining Wound Assessment #2: Wound Number: #2 Wound Present on Admission: Yes New Wound: No Status Change of Wound: No Wound Location Body Site Modif: right, plantar Wound Location Body Site: foot - and first toe Wound Type: abscess - CELLULITIS Amanda Test: Does not Amanda Wound Thickness: Full Thickness Wound Length: 3.5 Wound Width: 3.5 Wound Depth: 0.3 Percent of Wound [place]/Red: 60 Percent of Wound Bed Yellow/Wh: 40 - fibrotic tissue Wound Drainage Description: Serosanguineous Wound Drainage Amount: Moderate Wound Drainage Odor: None/Absent Tissue Surrounding Wound: Indurated Wound General Appearance: Reddened, Draining Wound Assessment #3: Wound Number: #3 Wound Present on Admission: Yes New Wound: No Status Change of Wound: No Wound Location Body Site Modif: right Wound Location Body Site: toe - 2nd and 5th toe Wound Type: abscess - cellulitis Amanda Test: Does not Amanda Wound Thickness: Full Thickness Wound Drainage Description: Serosanguineous Wound Drainage Amount: Scant Wound Drainage Odor: None/Absent Tissue Surrounding Wound: Indurated Wound General Appearance: Draining - scant, noted sites drying Wound Comment #1 left 1st plantar and 1st toe cellulitis with abscess and plantar swelling. #2 right 1st plantar and 1st toe cellulitis with abscess and plantar swelling. #3 right 2nd and 5th toe cellulitis with abscess. upon reassessment noted good progress to sites, decrease in foul odor present. decrease in drainage noted.patient tolerated wound care well. denies any pain or discomfort at time of assessment , dressings remain,dry , clean and intact. Recommendation. - Local wound care as ordered. -Offload both heels and toes. -elevate both legs. - Keep clean and dry. -Turn and reposition. -Optimize nutrition. - Assess and follow up with MD on case for any further changes in skin noted. PALACIOS,VERÓNICA February 17, 2017 10:27
[2017-02-17 11:53] VITALS: BP 162/96
--- NOTE | 2017-02-17 12:57 | General Progress Note ---
Assessment/Plan Status: stable Assessment/Plan status: Renal Failure : Acute vs Chronic Cr lower Sepsis Cellulitis : bilateral lower extremity cellulitis, athletic foot, and possible right foot osteomyelitis. Gangrene Urine positive for Cocaine Anemia Proteinuria , HypoAlbuminemia Plan: No labs today stable from renal stand BP control- Monitor renal parameters Urine studies 2D echo : Left ventricular ejection fraction estimated to be 60 %. antibiotics and skin care Subjective ROS Limited/Unobtainable: No Constitutional: Reports: malaise Allergies: Coded Allergies: PENICILLINS (Verified Allergy, Unknown, 02/10/17) Objective Last 24 Hour Vital Signs Date Time Temp Pulse Resp B/P Pulse Ox O2 Delivery O2 Flow Rate FiO2 02/17/17 11:53 98.0 81 19 162/96 96 Room Air 02/17/17 09:53 72 18 Room Air 21 02/17/17 09:33 72 156/93 02/17/17 08:27 98.2 72 20 156/93 93 Room Air 02/17/17 04:39 163/88 02/17/17 04:00 98.1 70 18 163/88 99 Room Air 02/16/17 23:40 98.3 70 18 148/92 96 Room Air 02/16/17 20:13 60 18 Room Air 21 02/16/17 20:00 98.6 64 18 141/90 99 Room Air 02/16/17 18:15 71 139/92 02/16/17 16:00 97.0 71 18 139/92 98 Room Air Intake and Output 02/16/17 02/17/17 19:00 07:00 Intake Total 1480 ml 1860 ml Output Total 850 ml Balance 1480 ml 1010 ml Intake Oral 480 ml 800 ml IV Total 1000 ml 1060 ml Output Urine Total 850 ml Height (Feet): 6 Height (Inches): 3.00 Weight (Pounds): 245 General Appearance: no apparent distress Objective PE no change MART MOREIRA February 17, 2017 12:57
--- NOTE | 2017-02-17 15:08 | Pulmonology Progress Note ---
Assessment/Plan Problems: (1) Sepsis (2) Gangrene (3) Homelessness (4) Drug abuse Assessment/Plan iv abx check labs periodically Med/surg all notes reviewed dc planning in process Subjective ROS Limited/Unobtainable: No Allergies: Coded Allergies: PENICILLINS (Verified Allergy, Unknown, 02/10/17) Objective Last 24 Hour Vital Signs Date Time Temp Pulse Resp B/P Pulse Ox O2 Delivery O2 Flow Rate FiO2 02/17/17 11:53 98.0 81 19 162/96 96 Room Air 02/17/17 09:53 72 18 Room Air 21 02/17/17 09:33 72 156/93 02/17/17 08:27 98.2 72 20 156/93 93 Room Air 02/17/17 04:39 163/88 02/17/17 04:00 98.1 70 18 163/88 99 Room Air 02/16/17 23:40 98.3 70 18 148/92 96 Room Air 02/16/17 20:13 60 18 Room Air 21 02/16/17 20:00 98.6 64 18 141/90 99 Room Air 02/16/17 18:15 71 139/92 02/16/17 16:00 97.0 71 18 139/92 98 Room Air Intake and Output 02/16/17 02/17/17 19:00 07:00 Intake Total 1480 ml 1860 ml Output Total 850 ml Balance 1480 ml 1010 ml Intake Oral 480 ml 800 ml IV Total 1000 ml 1060 ml Output Urine Total 850 ml Objective General Appearance: WD/WN HEENT: normocephalic Respiratory/Chest: chest wall non-tender, lungs clear Cardiovascular: normal peripheral pulses, regular rhythm Abdomen: normal bowel sounds, soft, non tender Genitourinary: normal external genitalia Extremities: no cyanosis, clean dressing on feet Current Medications Medications (Trade) Dose Ordered Sig/Sharla Route PRN Reason Start Time Stop Time Status Last Admin Dose Admin Acetaminophen (Tylenol) 650 mg Q4H PRN ORAL T>100.5 02/11/17 19:30 03/13/17 19:29 Amlodipine Besylate (Norvasc) 5 mg BID ORAL 02/16/17 18:00 03/18/17 17:59 02/17/17 09:33 Ascorbic Acid (Vitamin C) 500 mg DAILY ORAL 02/17/17 09:00 03/19/17 08:59 02/17/17 09:33 Bisacodyl (Dulcolax) 10 mg DAILYPRN PRN RECTAL Constipation 02/13/17 12:15 03/15/17 12:14 02/13/17 13:30 Cefepime HCl 2 gm/ Dextrose 110 ml @ 220 mls/hr Q24H IV 02/12/17 03:00 02/19/17 02:59 02/17/17 02:16 Clonidine HCl (Catapres) 0.1 mg Q4H PRN ORAL SBP > 160 02/11/17 19:30 03/13/17 19:29 02/17/17 04:39 Dextrose (Dextrose 50%) STAT PRN IV Hypoglycemia 02/11/17 19:30 03/13/17 19:29 Heparin Sodium (Porcine) (Heparin 5000 units/ml) 5,000 units EVERY 12 HOURS SUBQ 02/11/17 21:00 03/13/17 20:59 02/14/17 09:02 Methadone HCl (Methadone HCl) 80 mg DAILY ORAL 02/12/17 09:00 02/19/17 08:59 02/17/17 09:33 Metronidazole 100 ml @ 100 mls/hr Q6H IVPB 02/11/17 22:00 02/18/17 21:59 02/17/17 09:33 Morphine Sulfate (Morphine Sulfate) 2 mg Q4H PRN IVP Moderate Pain (Pain Scale 4-6) 02/11/17 19:30 02/18/17 19:29 02/15/17 12:23 Multivitamins (Multivitamins) 1 tab DAILY ORAL 02/17/17 09:00 03/19/17 08:59 02/17/17 09:33 Nitroglycerin (Ntg) 0.4 mg Q5M PRN SL Prn Chest Pain 02/11/17 19:15 03/13/17 19:14 Ondansetron HCl (Zofran) 4 mg Q6H PRN IVP Nausea & Vomiting 02/11/17 19:30 03/13/17 19:29 Polyethylene Glycol (Miralax) 17 gm DAILYPRN PRN ORAL Constipation 02/11/17 19:30 03/13/17 19:29 02/17/17 04:45 Sodium Chloride (Sodium Chloride 1000ml bag) 1,000 ml @ 75 mls/hr [id number] IV 02/11/17 19:15 03/13/17 19:14 02/17/17 08:00 Temazepam (Restoril) 15 mg HSPRN PRN ORAL Insomnia 02/12/17 21:00 02/19/17 20:59 RASHAAD GALLAGHER February 17, 2017 15:08
[2017-02-17 15:42] VITALS: BP 161/99
[2017-02-17 20:00] VITALS: BP 153/89
--- NOTE | 2017-02-17 22:16 | Podiatric Progress Note ---
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 Right hallux full thickness ulcer with osteomyelitis noted on MRI 2. Left hallux ulcer 3. Peripheral neuropathy Wounds are improving in size and quality - Continue daily dressing changes - Ordering post op shoes. Will modify to offload area of ulceration - Continue antibiotics per infectious disease specialist recommendations Subjective Allergies: Coded Allergies: PENICILLINS (Verified Allergy, Unknown, 02/10/17) Subjective Patient states he is doing well. He does not report any pain, nausea, vomiting, fevers, or chills. He has been minimally weight bearing to go to the restroom. No other pedal complaints at this time Objective Exam Last 24 Hour Vital Signs Date Time Temp Pulse Resp B/P Pulse Ox O2 Delivery O2 Flow Rate FiO2 02/17/17 20:26 85 18 Room Air 21 02/17/17 20:00 98.0 68 20 153/89 97 Room Air 02/17/17 17:28 73 161/99 02/17/17 17:28 161/99 02/17/17 15:42 97.9 73 21 161/99 96 Room Air 02/17/17 11:53 98.0 81 19 162/96 96 Room Air 02/17/17 09:53 72 18 Room Air 21 02/17/17 09:33 72 156/93 02/17/17 08:27 98.2 72 20 156/93 93 Room Air 02/17/17 04:39 163/88 02/17/17 04:00 98.1 70 18 163/88 99 Room Air 02/16/17 23:40 98.3 70 18 148/92 96 Room Air Microbiology Date/Time Source Procedure Growth Status 02/11/17 16:15 Blood Blood Culture - Final NO GROWTH AFTER 5 DAYS Complete 02/11/17 19:00 Wound Gram Stain - Preliminary Resulted 02/11/17 19:00 Wound Culture - Final Streptococcus Pyogenes Grp A Diphtheroids Resulted 02/11/17 19:00 Wound Aerobic Culture Pending Resulted 02/11/17 19:00 Wound Anaerobic Culture - Final NO ANAEROBES ISOLATED Resulted 02/10/17 03:45 Nasal Nares MRSA Culture - Final NO METHICILLIN RESISTANT STAPH AUREUS... Complete 02/10/17 03:45 Rectum VRE Culture - Final NO VANCOMYCIN RESISTANT ENTEROCOCCUS ... Complete Exam Narrative Right hallux full thickness ulcer with no purulence, malodor, or surrounding cellulitis. Left hallux with plantar fissure also without purulence, malodor, or surrounding cellulitis. Dermatological Wound Assessment : Exudate Amount: Scant Faheem Rubin DPM February 17, 2017 22:16
[2017-02-18] VITALS: BP 148/86
[2017-02-18] MEDS: Cefepime HCl 2 GM in D5W 110 ML IV SCH (02:28)
[2017-02-18] MEDS: metroNIDAZOLE 500mg 100 ML IVPB SCH ×4 (03:53→20:58)
[2017-02-18 04:00] VITALS: BP 149/82
[2017-02-18 08:01] VITALS: BP 147/89
[2017-02-18] MEDS: Heparin 5000 units/ml inj SUBQ SCH ×2 (09:00→20:19)
--- NOTE | 2017-02-18 11:19 | General Progress Note ---
Assessment/Plan Status: stable Assessment/Plan status: Renal Failure : Acute vs Chronic Cr lower Sepsis Cellulitis : bilateral lower extremity cellulitis, athletic foot, and possible right foot osteomyelitis. Gangrene Urine positive for Cocaine Anemia Proteinuria , HypoAlbuminemia Plan: No labs today stable from renal stand BP control- Monitor renal parameters Urine studies 2D echo : Left ventricular ejection fraction estimated to be 60 %. antibiotics and skin care Subjective ROS Limited/Unobtainable: No Allergies: Coded Allergies: PENICILLINS (Verified Allergy, Unknown, 02/10/17) Objective Last 24 Hour Vital Signs Date Time Temp Pulse Resp B/P Pulse Ox O2 Delivery O2 Flow Rate FiO2 02/18/17 08:01 97.9 69 21 147/89 95 02/18/17 07:54 181 18 Room Air 21 02/18/17 04:00 97.5 74 19 149/82 97 Room Air 02/18/17 00:00 97.7 71 20 148/86 97 Room Air 02/17/17 20:26 85 18 Room Air 21 02/17/17 20:00 98.0 68 20 153/89 97 Room Air 02/17/17 17:28 73 161/99 02/17/17 17:28 161/99 02/17/17 15:42 97.9 73 21 161/99 96 Room Air 02/17/17 11:53 98.0 81 19 162/96 96 Room Air Intake and Output 02/17/17 02/18/17 19:00 07:00 Intake Total 1660 ml 835 ml Output Total 800 ml 800 ml Balance 860 ml 35 ml Intake Oral 560 ml IV Total 1100 ml 835 ml Output Urine Total 800 ml 800 ml # Bowel Movements 2 Height (Feet): 6 Height (Inches): 3.00 Weight (Pounds): 245 General Appearance: no apparent distress Objective PE no change MART MOREIRA February 18, 2017 11:19
[2017-02-18] MEDS: Ascorbic Acid 500mg tab ORAL SCH (11:25)
[2017-02-18 11:57] VITALS: BP 91/43
--- NOTE | 2017-02-18 14:25 | Pulmonology Progress Note ---
Assessment/Plan Problems: (1) Sepsis (2) Gangrene (3) Homelessness (4) Drug abuse Assessment/Plan iv abx check labs periodically Med/surg all notes reviewed dc planning in process Subjective ROS Limited/Unobtainable: No Allergies: Coded Allergies: PENICILLINS (Verified Allergy, Unknown, 02/10/17) Objective Last 24 Hour Vital Signs Date Time Temp Pulse Resp B/P Pulse Ox O2 Delivery O2 Flow Rate FiO2 02/18/17 11:57 98.1 73 21 91/43 94 Room Air 02/18/17 11:25 69 147/89 02/18/17 08:01 97.9 69 21 147/89 95 02/18/17 07:54 181 18 Room Air 21 02/18/17 04:00 97.5 74 19 149/82 97 Room Air 02/18/17 00:00 97.7 71 20 148/86 97 Room Air 02/17/17 20:26 85 18 Room Air 21 02/17/17 20:00 98.0 68 20 153/89 97 Room Air 02/17/17 17:28 73 161/99 02/17/17 17:28 161/99 02/17/17 15:42 97.9 73 21 161/99 96 Room Air Intake and Output 02/17/17 02/18/17 19:00 07:00 Intake Total 1660 ml 835 ml Output Total 800 ml 800 ml Balance 860 ml 35 ml Intake Oral 560 ml IV Total 1100 ml 835 ml Output Urine Total 800 ml 800 ml # Bowel Movements 2 Objective General Appearance: WD/WN HEENT: normocephalic Respiratory/Chest: chest wall non-tender, lungs clear Cardiovascular: normal peripheral pulses, regular rhythm Abdomen: normal bowel sounds, soft, non tender Genitourinary: normal external genitalia Extremities: no cyanosis, clean dressing on feet Current Medications Medications (Trade) Dose Ordered Sig/Sharla Route PRN Reason Start Time Stop Time Status Last Admin Dose Admin Acetaminophen (Tylenol) 650 mg Q4H PRN ORAL T>100.5 02/11/17 19:30 03/13/17 19:29 Amlodipine Besylate (Norvasc) 5 mg BID ORAL 02/16/17 18:00 03/18/17 17:59 02/18/17 11:25 Ascorbic Acid (Vitamin C) 500 mg DAILY ORAL 02/17/17 09:00 03/19/17 08:59 02/18/17 11:25 Bisacodyl (Dulcolax) 10 mg DAILYPRN PRN RECTAL Constipation 02/13/17 12:15 03/15/17 12:14 02/13/17 13:30 Cefepime HCl 2 gm/ Dextrose 110 ml @ 220 mls/hr Q24H IV 02/12/17 03:00 02/24/17 02:59 02/18/17 02:28 Clonidine HCl (Catapres) 0.1 mg Q4H PRN ORAL SBP > 160 02/11/17 19:30 03/13/17 19:29 02/17/17 17:28 Dextrose (Dextrose 50%) STAT PRN IV Hypoglycemia 02/11/17 19:30 03/13/17 19:29 Heparin Sodium (Porcine) (Heparin 5000 units/ml) 5,000 units EVERY 12 HOURS SUBQ 02/11/17 21:00 03/13/17 20:59 02/14/17 09:02 Methadone HCl (Methadone HCl) 80 mg DAILY ORAL 02/12/17 09:00 02/19/17 08:59 02/18/17 10:59 Metronidazole 100 ml @ 100 mls/hr Q6H IVPB 02/11/17 22:00 02/24/17 21:59 02/18/17 10:58 Morphine Sulfate (Morphine Sulfate) 2 mg Q4H PRN IVP Moderate Pain (Pain Scale 4-6) 02/11/17 19:30 02/18/17 19:29 02/15/17 12:23 Multivitamins (Multivitamins) 1 tab DAILY ORAL 02/17/17 09:00 03/19/17 08:59 02/18/17 11:24 Nitroglycerin (Ntg) 0.4 mg Q5M PRN SL Prn Chest Pain 02/11/17 19:15 03/13/17 19:14 Ondansetron HCl (Zofran) 4 mg Q6H PRN IVP Nausea & Vomiting 02/11/17 19:30 03/13/17 19:29 Polyethylene Glycol (Miralax) 17 gm DAILYPRN PRN ORAL Constipation 02/11/17 19:30 03/13/17 19:29 02/17/17 04:45 Sodium Chloride (Sodium Chloride 1000ml bag) 1,000 ml @ 75 mls/hr [id number] IV 02/11/17 19:15 03/13/17 19:14 02/18/17 11:02 Temazepam (Restoril) 15 mg HSPRN PRN ORAL Insomnia 02/12/17 21:00 02/19/17 20:59 RASHAAD GALLAGHER February 18, 2017 14:25
[2017-02-18 15:47] VITALS: BP 158/59
--- NOTE | 2017-02-18 18:28 | Infectious Diseases Prog Note ---
Assessment/Plan Assessment/Plan ASSESSMENT: 61-year-old male with: Bilateral lower extremity cellulitis, and osteomyelitis of the right foot - WCx GAS.pyogenes, ( diptheroids: colonizer ) I&D was performed at bedside of bilateral hallux abscess 02/11 MRI : Acute osteomyelitis suspected with regard to the first distal phalange , second distal phalange, and proximal fifth phalange Polymicrobial ( CONS 2/4, Diptheroids 1/4 ) bacteremia, possible contaminant - repeat BCx 02/11 NGTD Transaminitis Hep C Ab+, PCR pending HIV neg Fever x1 - resolved Leukocytosis - SP PICC 02/11 Renal Failure r , SP HTN U tox +ve for cocaine and opiates Homeless PCN allergy Full Code PLAN: Continue IV cefepime and Flagyl d# / ( vancomycin d# 7 ) f/u Hepatitis C PCR Monitor liver function tests Monitor CBC and BMP wound care Subjective Constitutional: Denies: anorexia, chills, drenching sweats, fatigue, fever, no symptoms, other Allergies: Coded Allergies: PENICILLINS (Verified Allergy, Unknown, 02/10/17) Subjective afebrile Objective Vital Signs Last 24 Hour Vital Signs Date Time Temp Pulse Resp B/P Pulse Ox O2 Delivery O2 Flow Rate FiO2 02/18/17 15:47 99.1 78 22 158/59 99 Room Air 02/18/17 11:57 98.1 73 21 91/43 94 Room Air 02/18/17 11:25 69 147/89 02/18/17 08:01 97.9 69 21 147/89 95 02/18/17 07:54 181 18 Room Air 02/18/17 04:00 97.5 74 19 149/82 97 Room Air 02/18/17 00:00 97.7 71 20 148/86 97 Room Air 02/17/17 20:26 85 18 Room Air 21 02/17/17 20:00 98.0 68 20 153/89 97 Room Air Height (Feet): 6 Height (Inches): 3.00 Weight (Pounds): 245 HEENT: atraumatic Respiratory/Chest: normal breath sounds Cardiovascular: no gallop/murmur Abdomen: no organomegaly Current Medications Medications (Trade) Dose Ordered Sig/Sharla Route PRN Reason Start Time Stop Time Status Last Admin Dose Admin Acetaminophen (Tylenol) 650 mg Q4H PRN ORAL T>100.5 02/11/17 19:30 03/13/17 19:29 Amlodipine Besylate (Norvasc) 5 mg BID ORAL 02/16/17 18:00 03/18/17 17:59 02/18/17 11:25 Ascorbic Acid (Vitamin C) 500 mg DAILY ORAL 02/17/17 09:00 03/19/17 08:59 02/18/17 11:25 Bisacodyl (Dulcolax) 10 mg DAILYPRN PRN RECTAL Constipation 02/13/17 12:15 03/15/17 12:14 02/13/17 13:30 Cefepime HCl 2 gm/ Dextrose 110 ml @ 220 mls/hr Q24H IV 02/12/17 03:00 02/24/17 02:59 02/18/17 02:28 Clonidine HCl (Catapres) 0.1 mg Q4H PRN ORAL SBP > 160 02/11/17 19:30 03/13/17 19:29 02/17/17 17:28 Dextrose (Dextrose 50%) STAT PRN IV Hypoglycemia 02/11/17 19:30 03/13/17 19:29 Heparin Sodium (Porcine) (Heparin 5000 units/ml) 5,000 units EVERY 12 HOURS SUBQ 02/11/17 21:00 03/13/17 20:59 02/14/17 09:02 Methadone HCl (Methadone HCl) 80 mg DAILY ORAL 02/12/17 09:00 02/19/17 08:59 02/18/17 10:59 Metronidazole 100 ml @ 100 mls/hr Q6H IVPB 02/11/17 22:00 02/24/17 21:59 02/18/17 17:20 Morphine Sulfate (Morphine Sulfate) 2 mg Q4H PRN IVP Moderate Pain (Pain Scale 4-6) 02/11/17 19:30 02/18/17 19:29 02/15/17 12:23 Multivitamins (Multivitamins) 1 tab DAILY ORAL 02/17/17 09:00 03/19/17 08:59 02/18/17 11:24 Nitroglycerin (Ntg) 0.4 mg Q5M PRN SL Prn Chest Pain 02/11/17 19:15 03/13/17 19:14 Ondansetron HCl (Zofran) 4 mg Q6H PRN IVP Nausea & Vomiting 02/11/17 19:30 03/13/17 19:29 Polyethylene Glycol (Miralax) 17 gm DAILYPRN PRN ORAL Constipation 02/11/17 19:30 03/13/17 19:29 02/17/17 04:45 Sodium Chloride (Sodium Chloride 1000ml bag) 1,000 ml @ 75 mls/hr [id number] IV 02/11/17 19:15 03/13/17 19:14 02/18/17 11:02 Temazepam (Restoril) 15 mg HSPRN PRN ORAL Insomnia 02/12/17 21:00 02/19/17 20:59 YODIT CASTAÑEDA M.D. February 18, 2017 18:28
[2017-02-18 20:00] VITALS: BP_SYST 159; BP_SYST 179; BP_DIAS 102; BP_DIAS 89
[2017-02-18 22:14] LABS: HEP C VIRUS RNA (LOG IU/ML) 6.464 (.); HEPATITIS C QUANT 2907840 IU/mL (.)
[2017-02-19] VITALS (9 sets, daily range): BP systolic 152–184; BP diastolic 84–110
[2017-02-19] MEDS: Cefepime HCl 2 GM in D5W 110 ML IV SCH ×3 (02:54→22:14)
[2017-02-19] MEDS: metroNIDAZOLE 500mg 100 ML IVPB SCH ×4 (03:44→22:34)
[2017-02-19 07:21] LABS: MEAN CORPUSCULAR HEMOGLOBIN 33.3 PG (27.0-31.0); MEAN CORPUSCULAR HGB CONC 32.5 G/DL (32.0-36.0); MEAN CORPUSCULAR VOLUME 103 FL (80-99); MEAN PLATELET VOLUME 8.4 FL (6.5-10.1); PLATELET COUNT 97 K/UL (150-450); RED CELL DISTRIBUTION WIDTH 13.6 % (11.6-14.8); WHITE BLOOD COUNT 6.1 K/UL (4.8-10.8)
[2017-02-19 07:32] LABS: ALANINE AMINOTRANSFERASE 31 U/L (3-41); ALBUMIN/GLOBULIN RATIO 0.3 (1.0-2.7); ANION GAP 11 (5-15); ASPARTATE AMINO TRANSFERASE 102 U/L (5-40); CALCIUM 8.2 mg/dL (8.6-10.2); CARBON DIOXIDE 24 mEQ/L (20-30); CHLORIDE 99 mEQ/L (98-107); GLOMERULAR FILTRATION RATE > 60 mL/min (>60); HEMOLYSIS 1; MAGNESIUM 1.7 mg/dL (1.7-2.5); PHOSPHORUS 2.9 mg/dL (2.5-4.8); POTASSIUM 4.1 mEQ/L (3.4-4.9); SODIUM 134 mEQ/L (135-145); TOTAL PROTEIN 9.1 g/dL (6.6-8.7); URIC ACID 4.2 mg/dL (3.0-7.5)
[2017-02-19] MEDS: Heparin 5000 units/ml inj SUBQ SCH ×2 (09:00→21:00)
[2017-02-19] MEDS: Ascorbic Acid 500mg tab ORAL SCH (09:29)
[2017-02-19 11:27] LABS: BAND NEUTROPHILS % (MANUAL) 0 % (0-8); BASOPHILS % (MANUAL) 1 % (0-2); EOSINOPHILS % (MANUAL) 2 % (0-3); LYMPHOCYTES % (MANUAL) 23 % (20-45); NEUTROPHILS % (MANUAL) 66 % (45-75); PLATELET ESTIMATE DECREASED; PLATELET MORPHOLOGY NORMAL; TOTAL CELLS COUNTED 100
[2017-02-19 11:28] LABS: HYPOCHROMASIA 1+; MACROCYTES 1+
--- NOTE | 2017-02-19 12:49 | Infectious Diseases Prog Note ---
Assessment/Plan Assessment/Plan ASSESSMENT: 61-year-old male with: Bilateral lower extremity cellulitis, and osteomyelitis of the right foot - WCx GAS.pyogenes, ( diptheroids: colonizer ) I&D was performed at bedside of bilateral hallux abscess 02/11 MRI : Acute osteomyelitis suspected with regard to the first distal phalange , second distal phalange, and proximal fifth phalange Polymicrobial ( CONS 2/4, Diptheroids 1/4 ) bacteremia, possible contaminant - repeat BCx 02/11 NGTD Transaminitis Hep C Ab+, PCR +ve HIV neg Fever x1 - resolved Leukocytosis - SP PICC 02/11 Renal Failure r , SP HTN U tox +ve for cocaine and opiates Homeless PCN allergy Full Code PLAN: Continue IV cefepime and Flagyl d# / ( vancomycin d# 7 ) Monitor liver function tests Monitor CBC and BMP wound care Subjective Constitutional: Denies: anorexia, chills, drenching sweats, fatigue, fever, no symptoms, other Allergies: Coded Allergies: PENICILLINS (Verified Allergy, Unknown, 02/10/17) Subjective afebrile Objective Vital Signs Last 24 Hour Vital Signs Date Time Temp Pulse Resp B/P Pulse Ox O2 Delivery O2 Flow Rate FiO2 02/19/17 12:33 76 160/90 02/19/17 11:48 99.0 85 22 184/110 94 Room Air 02/19/17 11:37 184/110 02/19/17 09:29 86 183/99 02/19/17 07:57 97.6 86 21 183/99 95 Room Air 02/19/17 07:15 81 20 Room Air 02/19/17 04:00 98.2 79 20 157/91 97 Room Air 02/19/17 00:15 156/88 02/19/17 00:00 98.8 84 19 167/98 97 Room Air 02/18/17 20:00 99.1 80 20 159/89 95 Room Air 02/18/17 19:45 70 20 Room Air 21 02/18/17 18:51 72 147/84 02/18/17 15:47 99.1 78 22 158/59 99 Room Air Height (Feet): 6 Height (Inches): 3.00 Weight (Pounds): 245 HEENT: anicteric Respiratory/Chest: normal breath sounds Cardiovascular: regularly irregular Abdomen: no organomegaly Laboratory Tests Test 02/19/17 06:00 White Blood Count 6.1 K/UL (4.8-10.8) Red Blood Count 2.80 M/UL (4.70-6.10) L Hemoglobin 9.3 G/DL (14.2-18.0) L Hematocrit 28.7 % (42.0-52.0) L Mean Corpuscular Volume 103 FL (80-99) H Mean Corpuscular Hemoglobin 33.3 PG (27.0-31.0) H Mean Corpuscular Hemoglobin Concent 32.5 G/DL (32.0-36.0) Red Cell Distribution Width 13.6 % (11.6-14.8) Platelet Count 97 K/UL (150-450) L Mean Platelet Volume 8.4 FL (6.5-10.1) Neutrophils (%) (Auto) % (45.0-75.0) Lymphocytes (%) (Auto) % (20.0-45.0) Monocytes (%) (Auto) % (1.0-10.0) Eosinophils (%) (Auto) % (0.0-3.0) Basophils (%) (Auto) % (0.0-2.0) Differential Total Cells Counted 100 Neutrophils % (Manual) 66 % (45-75) Lymphocytes % (Manual) 23 % (20-45) Monocytes % (Manual) 8 % (1-10) Eosinophils % (Manual) 2 % (0-3) Basophils % (Manual) 1 % (0-2) Band Neutrophils 0 % (0-8) Platelet Estimate Decreased L Platelet Morphology Normal Hypochromasia 1+ Macrocytosis 1+ Sodium Level 134 mEQ/L (135-145) L Potassium Level 4.1 mEQ/L (3.4-4.9) Chloride Level 99 mEQ/L (98-107) Carbon Dioxide Level 24 mEQ/L (20-30) Anion Gap 11 (5-15) Blood Urea Nitrogen 16 mg/dL (7-23) Creatinine 1.0 mg/dL (0.7-1.2) Estimat Glomerular Filtration Rate > 60 mL/min (>60) Glucose Level 71 mg/dL (74-106) L Uric Acid 4.2 mg/dL (3.0-7.5) Calcium Level 8.2 mg/dL (8.6-10.2) L Phosphorus Level 2.9 mg/dL (2.5-4.8) Magnesium Level 1.7 mg/dL (1.7-2.5) Total Bilirubin 0.9 mg/dL (0.0-1.2) Aspartate Amino Transf (AST/SGOT) 102 U/L (5-40) H Alanine Aminotransferase (ALT/SGPT) 31 U/L (3-41) Alkaline Phosphatase 89 U/L (40-129) Total Protein 9.1 g/dL (6.6-8.7) H Albumin 2.2 g/dL (3.5-5.2) L Globulin 6.9 g/dL Albumin/Globulin Ratio 0.3 (1.0-2.7) L Current Medications Medications (Trade) Dose Ordered Sig/Sharla Route PRN Reason Start Time Stop Time Status Last Admin Dose Admin Acetaminophen (Tylenol) 650 mg Q4H PRN ORAL T>100.5 02/11/17 19:30 03/13/17 19:29 Acetaminophen/ Hydrocodone Bitart ([place] 10/325) 1 ea Q6H PRN ORAL For Pain 02/19/17 11:45 02/26/17 11:44 Amlodipine Besylate (Norvasc) 5 mg BID ORAL 02/16/17 18:00 03/18/17 17:59 02/19/17 09:29 Ascorbic Acid (Vitamin C) 500 mg DAILY ORAL 02/17/17 09:00 03/19/17 08:59 02/19/17 09:29 Bisacodyl (Dulcolax) 10 mg DAILYPRN PRN RECTAL Constipation 02/13/17 12:15 03/15/17 12:14 02/13/17 13:30 Cefepime HCl 2 gm/ Dextrose 110 ml @ 220 mls/hr Q24H IV 02/12/17 03:00 02/24/17 02:59 02/19/17 02:54 Clonidine HCl (Catapres) 0.1 mg Q4H PRN ORAL SBP > 160 02/11/17 19:30 03/13/17 19:29 02/19/17 11:37 Dextrose (Dextrose 50%) STAT PRN IV Hypoglycemia 02/11/17 19:30 03/13/17 19:29 Heparin Sodium (Porcine) (Heparin 5000 units/ml) 5,000 units EVERY 12 HOURS SUBQ 02/11/17 21:00 03/13/17 20:59 02/14/17 09:02 Methadone HCl (Methadone HCl) 80 mg DAILY ORAL 02/19/17 12:00 02/26/17 11:59 02/19/17 12:24 Metronidazole 100 ml @ 100 mls/hr Q6H IVPB 02/11/17 22:00 02/24/17 21:59 02/19/17 09:29 Multivitamins (Multivitamins) 1 tab DAILY ORAL 02/17/17 09:00 03/19/17 08:59 02/19/17 09:29 Nitroglycerin (Ntg) 0.4 mg Q5M PRN SL Prn Chest Pain 02/11/17 19:15 03/13/17 19:14 Ondansetron HCl (Zofran) 4 mg Q6H PRN IVP Nausea & Vomiting 02/11/17 19:30 03/13/17 19:29 Polyethylene Glycol (Miralax) 17 gm DAILYPRN PRN ORAL Constipation 02/11/17 19:30 03/13/17 19:29 02/17/17 04:45 Sodium Chloride (Sodium Chloride 1000ml bag) 1,000 ml @ 75 mls/hr [id number] IV 02/11/17 19:15 03/13/17 19:14 02/19/17 01:21 Temazepam (Restoril) 15 mg HSPRN PRN ORAL Insomnia 02/12/17 21:00 02/19/17 20:59 YODIT CASTAÑEDA M.D. February 19, 2017 12:49
--- NOTE | 2017-02-19 15:06 | General Progress Note ---
Assessment/Plan Status: stable Assessment/Plan status: Renal Failure : Acute vs Chronic Cr lower Sepsis Cellulitis : bilateral lower extremity cellulitis, athletic foot, and possible right foot osteomyelitis. Gangrene Urine positive for Cocaine Anemia Proteinuria , HypoAlbuminemia Plan: stable from renal stand BP control- Monitor renal parameters Urine studies 2D echo : Left ventricular ejection fraction estimated to be 60 %. antibiotics and skin care Subjective ROS Limited/Unobtainable: No Allergies: Coded Allergies: PENICILLINS (Verified Allergy, Unknown, 02/10/17) Objective Last 24 Hour Vital Signs Date Time Temp Pulse Resp B/P Pulse Ox O2 Delivery O2 Flow Rate FiO2 02/19/17 13:53 78 159/84 02/19/17 12:33 76 160/90 02/19/17 11:48 99.0 85 22 184/110 94 Room Air 02/19/17 11:37 184/110 02/19/17 09:29 86 183/99 02/19/17 07:57 97.6 86 21 183/99 95 Room Air 02/19/17 07:15 81 20 Room Air 21 02/19/17 04:00 98.2 79 20 157/91 97 Room Air 02/19/17 00:15 156/88 02/19/17 00:00 98.8 84 19 167/98 97 Room Air 02/18/17 20:00 99.1 80 20 159/89 95 Room Air 02/18/17 19:45 70 20 Room Air 21 02/18/17 18:51 72 147/84 02/18/17 15:47 99.1 78 22 158/59 99 Room Air Intake and Output 02/18/17 02/19/17 19:00 07:00 Intake Total 1200 ml 985 ml Balance 1200 ml 985 ml Intake Oral 1200 ml IV Total 985 ml # Voids 3 # Bowel Movements 4 Laboratory Tests 02/19/17 06:00: White Blood Count 6.1, Red Blood Count 2.80L, Hemoglobin 9.3L, Hematocrit 28.7L , Mean Corpuscular Volume 103H, Mean Corpuscular Hemoglobin 33.3H, Mean Corpuscular Hemoglobin Concent 32.5, Red Cell Distribution Width 13.6, Platelet Count 97L, Mean Platelet Volume 8.4, Neutrophils (%) (Auto) , Lymphocytes (%) ( Auto) , Monocytes (%) (Auto) , Eosinophils (%) (Auto) , Basophils (%) (Auto) , Differential Total Cells Counted 100, Neutrophils % (Manual) 66, Lymphocytes % ( Manual) 23, Monocytes % (Manual) 8, Eosinophils % (Manual) 2, Basophils % ( Manual) 1, Band Neutrophils 0, Platelet Estimate DecreasedL, Platelet Morphology Normal, Hypochromasia 1+, Macrocytosis 1+, Sodium Level 134L, Potassium Level 4.1, Chloride Level 99, Carbon Dioxide Level 24, Anion Gap 11, Blood Urea Nitrogen 16, Creatinine 1.0, Estimat Glomerular Filtration Rate > 60 , Glucose Level 71L, Uric Acid 4.2, Calcium Level 8.2L, Phosphorus Level 2.9, Magnesium Level 1.7, Total Bilirubin 0.9, Aspartate Amino Transf (AST/SGOT) 102H , Alanine Aminotransferase (ALT/SGPT) 31, Alkaline Phosphatase 89, Total Protein 9.1H, Albumin 2.2L, Globulin 6.9, Albumin/Globulin Ratio 0.3L Height (Feet): 6 Height (Inches): 3.00 Weight (Pounds): 245 General Appearance: no apparent distress Objective PE no change MART MOREIRA February 19, 2017 15:06
--- NOTE | 2017-02-19 16:04 | Pulmonology Progress Note ---
Assessment/Plan Problems: (1) Sepsis (2) Gangrene (3) Homelessness (4) Drug abuse Assessment/Plan iv abx check labs periodically Med/surg all notes reviewed dc planning in process Subjective ROS Limited/Unobtainable: No Constitutional: Reports: no symptoms HEENT: Repors: no symptoms Respiratory: Reports: no symptoms Cardiovascular: Reports: no symptoms Allergies: Coded Allergies: PENICILLINS (Verified Allergy, Unknown, 02/10/17) Objective Last 24 Hour Vital Signs Date Time Temp Pulse Resp B/P Pulse Ox O2 Delivery O2 Flow Rate FiO2 02/19/17 15:54 98.2 80 23 175/96 97 Room Air 02/19/17 13:53 78 159/84 02/19/17 12:33 76 160/90 02/19/17 11:48 99.0 85 22 184/110 94 Room Air 02/19/17 11:37 184/110 02/19/17 09:29 86 183/99 02/19/17 07:57 97.6 86 21 183/99 95 Room Air 02/19/17 07:15 81 20 Room Air 21 02/19/17 04:00 98.2 79 20 157/91 97 Room Air 02/19/17 00:15 156/88 02/19/17 00:00 98.8 84 19 167/98 97 Room Air 02/18/17 20:00 99.1 80 20 159/89 95 Room Air 02/18/17 19:45 70 20 Room Air 21 02/18/17 18:51 72 147/84 Intake and Output 02/18/17 02/19/17 19:00 07:00 Intake Total 1200 ml 985 ml Balance 1200 ml 985 ml Intake Oral 1200 ml IV Total 985 ml # Voids 3 # Bowel Movements 4 Objective General Appearance: WD/WN HEENT: normocephalic Respiratory/Chest: chest wall non-tender, lungs clear Cardiovascular: normal peripheral pulses, regular rhythm Abdomen: normal bowel sounds, soft, non tender Genitourinary: normal external genitalia Extremities: no cyanosis, clean dressing on feet Laboratory Tests 02/19/17 06:00: White Blood Count 6.1, Red Blood Count 2.80L, Hemoglobin 9.3L, Hematocrit 28.7L , Mean Corpuscular Volume 103H, Mean Corpuscular Hemoglobin 33.3H, Mean Corpuscular Hemoglobin Concent 32.5, Red Cell Distribution Width 13.6, Platelet Count 97L, Mean Platelet Volume 8.4, Neutrophils (%) (Auto) , Lymphocytes (%) ( Auto) , Monocytes (%) (Auto) , Eosinophils (%) (Auto) , Basophils (%) (Auto) , Differential Total Cells Counted 100, Neutrophils % (Manual) 66, Lymphocytes % ( Manual) 23, Monocytes % (Manual) 8, Eosinophils % (Manual) 2, Basophils % ( Manual) 1, Band Neutrophils 0, Platelet Estimate DecreasedL, Platelet Morphology Normal, Hypochromasia 1+, Macrocytosis 1+, Sodium Level 134L, Potassium Level 4.1, Chloride Level 99, Carbon Dioxide Level 24, Anion Gap 11, Blood Urea Nitrogen 16, Creatinine 1.0, Estimat Glomerular Filtration Rate > 60 , Glucose Level 71L, Uric Acid 4.2, Calcium Level 8.2L, Phosphorus Level 2.9, Magnesium Level 1.7, Total Bilirubin 0.9, Aspartate Amino Transf (AST/SGOT) 102H , Alanine Aminotransferase (ALT/SGPT) 31, Alkaline Phosphatase 89, Total Protein 9.1H, Albumin 2.2L, Globulin 6.9, Albumin/Globulin Ratio 0.3L Current Medications Medications (Trade) Dose Ordered Sig/Sharla Route PRN Reason Start Time Stop Time Status Last Admin Dose Admin Acetaminophen (Tylenol) 650 mg Q4H PRN ORAL T>100.5 02/11/17 19:30 03/13/17 19:29 Acetaminophen/ Hydrocodone Bitart ([place] 10/325) 1 ea Q6H PRN ORAL For Pain 02/19/17 11:45 02/26/17 11:44 Amlodipine Besylate (Norvasc) 5 mg BID ORAL 02/16/17 18:00 03/18/17 17:59 02/19/17 09:29 Ascorbic Acid (Vitamin C) 500 mg DAILY ORAL 02/17/17 09:00 03/19/17 08:59 02/19/17 09:29 Bisacodyl (Dulcolax) 10 mg DAILYPRN PRN RECTAL Constipation 02/13/17 12:15 03/15/17 12:14 02/13/17 13:30 Cefepime HCl 2 gm/ Dextrose 110 ml @ 220 mls/hr Q24H IV 02/12/17 03:00 02/24/17 02:59 02/19/17 02:54 Clonidine HCl (Catapres) 0.1 mg Q4H PRN ORAL SBP > 160 02/11/17 19:30 03/13/17 19:29 02/19/17 11:37 Dextrose (Dextrose 50%) STAT PRN IV Hypoglycemia 02/11/17 19:30 03/13/17 19:29 Heparin Sodium (Porcine) (Heparin 5000 units/ml) 5,000 units EVERY 12 HOURS SUBQ 02/11/17 21:00 03/13/17 20:59 02/14/17 09:02 Methadone HCl (Methadone HCl) 80 mg DAILY ORAL 02/19/17 12:00 02/26/17 11:59 02/19/17 12:24 Metronidazole (Flagyl) 100 ml @ 100 mls/hr Q6H IVPB 02/11/17 22:00 02/24/17 21:59 02/19/17 09:29 Multivitamins (Multivitamins) 1 tab DAILY ORAL 02/17/17 09:00 03/19/17 08:59 02/19/17 09:29 Nitroglycerin (Ntg) 0.4 mg Q5M PRN SL Prn Chest Pain 02/11/17 19:15 03/13/17 19:14 Ondansetron HCl (Zofran) 4 mg Q6H PRN IVP Nausea & Vomiting 02/11/17 19:30 03/13/17 19:29 Polyethylene Glycol (Miralax) 17 gm DAILYPRN PRN ORAL Constipation 02/11/17 19:30 03/13/17 19:29 02/17/17 04:45 Temazepam (Restoril) 15 mg HSPRN PRN ORAL Insomnia 02/12/17 21:00 02/19/17 20:59 RASHAAD GALLAGHER February 19, 2017 16:04
[2017-02-20] VITALS: BP 157/87
[2017-02-20] MEDS: Norco 10mg/325mg tab ORAL PRN ×2 (00:16→23:32)
[2017-02-20 04:00] VITALS: BP 148/79
[2017-02-20] MEDS: metroNIDAZOLE 500mg 100 ML IVPB SCH ×4 (04:05→22:01)
[2017-02-20 08:00] VITALS: BP 154/88
--- NOTE | 2017-02-20 08:22 | Infectious Diseases Prog Note ---
Assessment/Plan Assessment/Plan ASSESSMENT: 61-year-old male with: Bilateral lower extremity cellulitis, and osteomyelitis of the right foot - WCx GAS.pyogenes, diptheroids I&D was performed at bedside of bilateral hallux abscess 02/11 MRI : Acute osteomyelitis suspected with regard to the first distal phalange , second distal phalange, and proximal fifth phalange Polymicrobial ( CONS 2/4, Diptheroids 1/4 ) bacteremia, possible contaminant - repeat BCx 02/11 Neg Transaminitis Hep C Ab+, PCR >2million HIV neg Fever x1 - resolved Leukocytosis - resolved Renal Failure : Acute vs Chronic Cr lower HTN U tox +ve for cocaine and opiates Homeless PCN allergy - tolerating cefepime Full Code PLAN: Continue IV cefepime and Flagyl d# 11 / ( SP vancomycin d# 7 ) outpt HCV Rx eval Monitor liver function tests Monitor CBC and BMP wound care Subjective Allergies: Coded Allergies: PENICILLINS (Verified Allergy, Unknown, 02/10/17) Subjective remains afebrile Objective Vital Signs Last 24 Hour Vital Signs Date Time Temp Pulse Resp B/P Pulse Ox O2 Delivery O2 Flow Rate FiO2 02/20/17 04:00 98.6 74 17 148/79 100 Room Air 02/20/17 01:15 98.6 02/20/17 00:00 98.6 87 19 157/87 94 Room Air 02/19/17 20:00 98.2 73 19 152/92 96 Room Air 02/19/17 19:33 85 18 Room Air 21 02/19/17 18:06 75 168/96 02/19/17 15:54 98.2 80 23 175/96 97 Room Air 02/19/17 13:53 78 159/84 02/19/17 12:33 76 160/90 02/19/17 11:48 99.0 85 22 184/110 94 Room Air 02/19/17 11:37 184/110 02/19/17 09:29 86 183/99 Height (Feet): 6 Height (Inches): 3.00 Weight (Pounds): 245 General Appearance: no acute distress Respiratory/Chest: no respiratory distress Cardiovascular: normal rate, regular rhythm Abdomen: normal bowel sounds, soft, non tender, non distended Current Medications Medications (Trade) Dose Ordered Sig/Sharla Route PRN Reason Start Time Stop Time Status Last Admin Dose Admin Acetaminophen (Tylenol) 650 mg Q4H PRN ORAL T>100.5 02/11/17 19:30 03/13/17 19:29 Acetaminophen/ Hydrocodone Bitart 1 ea 1 ea Q6H PRN ORAL For Pain 02/19/17 11:45 02/26/17 11:44 02/20/17 00:16 Amlodipine Besylate (Norvasc) 5 mg BID ORAL 02/16/17 18:00 03/18/17 17:59 02/19/17 18:06 Ascorbic Acid (Vitamin C) 500 mg DAILY ORAL 02/17/17 09:00 03/19/17 08:59 02/19/17 09:29 Bisacodyl (Dulcolax) 10 mg DAILYPRN PRN RECTAL Constipation 02/13/17 12:15 03/15/17 12:14 02/13/17 13:30 Cefepime HCl/ Dextrose (Maxipime/D5W) 110 ml @ 220 mls/hr Q12HR IV 02/19/17 21:00 02/26/17 20:59 02/19/17 21:00 Clonidine HCl (Catapres) 0.1 mg Q4H PRN ORAL SBP > 160 02/11/17 19:30 03/13/17 19:29 02/19/17 11:37 Dextrose (Dextrose 50%) STAT PRN IV Hypoglycemia 02/11/17 19:30 03/13/17 19:29 Heparin Sodium (Porcine) (Heparin 5000 units/ml) 5,000 units EVERY 12 HOURS SUBQ 02/11/17 21:00 03/13/17 20:59 02/14/17 09:02 Methadone HCl (Methadone HCl) 80 mg DAILY ORAL 02/19/17 12:00 02/26/17 11:59 02/19/17 12:24 Metronidazole (Flagyl) 100 ml @ 100 mls/hr Q6H IVPB 02/11/17 22:00 02/24/17 21:59 02/20/17 04:05 Multivitamins (Multivitamins) 1 tab DAILY ORAL 02/17/17 09:00 03/19/17 08:59 02/19/17 09:29 Nitroglycerin (Ntg) 0.4 mg Q5M PRN SL Prn Chest Pain 02/11/17 19:15 03/13/17 19:14 Ondansetron HCl (Zofran) 4 mg Q6H PRN IVP Nausea & Vomiting 02/11/17 19:30 03/13/17 19:29 Polyethylene Glycol (Miralax) 17 gm DAILYPRN PRN ORAL Constipation 02/11/17 19:30 03/13/17 19:29 02/17/17 04:45 TRISTAN GARCIA February 20, 2017 08:22
[2017-02-20] MEDS: Ascorbic Acid 500mg tab ORAL SCH (08:48)
[2017-02-20] MEDS: Cefepime HCl 2 GM in D5W 110 ML IV SCH ×2 (08:48→21:29)
[2017-02-20] MEDS: Heparin 5000 units/ml inj SUBQ SCH ×2 (08:49→21:00)
--- NOTE | 2017-02-20 08:56 | Pulmonology Progress Note ---
Assessment/Plan Assessment/Plan ASSESSMENT sepsis possible bacteremia BLE cellulitis acute OM R foot bilateral hallux abscess s/p I&D and debridement 02/11 peripheral neuropathy HTN onychomycosis ARF anemia cocaine abuse homeless PLAN OF CARE MS floor abx, ID follows wound cx + Strep pyogenes Group A R foot MRI c/w acute OM will need total 42 days of abx blood cx initially with SCON and Diphtheroid, likely contaminant, repeated blood cx negative podiatry follows wound care as per podiatry recommendations s/p I&D at the bedside, , s/p toenails debridement Arterial Duplex no evidence of significant arterial occlusive disease Venous Duplex BLE negative ARF resolved, , likely due to dehydration , s/p IVF Nepro follows stable from renal standpoint monitor LFT , trending down hepatitis panel with + hep C abdominal US with borderline HM, no ascites HIV negative low PLT , check in am and if further trend down will dc Heparin BP management with CCB and optimize as needed ECHO with EF 60% and RVSP of 34, no evidence of vegetation Bowel regimen DVT prophylaxis PT/OT monitor HH, transfuse prn 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 will need placement short term SNF for IV abx case discussed and evaluated by supervising physician Subjective Allergies: Coded Allergies: PENICILLINS (Verified Allergy, Unknown, 02/10/17) Subjective admits to foot pain( right plantar area ) denies chest pain, SOB Objective Last 24 Hour Vital Signs Date Time Temp Pulse Resp B/P Pulse Ox O2 Delivery O2 Flow Rate FiO2 02/20/17 08:00 98.1 77 19 154/88 94 Room Air 02/20/17 04:00 98.6 74 17 148/79 100 Room Air 02/20/17 01:15 98.6 02/20/17 00:00 98.6 87 19 157/87 94 Room Air 02/19/17 20:00 98.2 73 19 152/92 96 Room Air 02/19/17 19:33 85 18 Room Air 21 02/19/17 18:06 75 168/96 02/19/17 15:54 98.2 80 23 175/96 97 Room Air 02/19/17 13:53 78 159/84 02/19/17 12:33 76 160/90 02/19/17 11:48 99.0 85 22 184/110 94 Room Air 02/19/17 11:37 184/110 02/19/17 09:29 86 183/99 Intake and Output 02/19/17 02/20/17 19:00 07:00 Intake Total 720 ml 310 ml Output Total 600 ml Balance 120 ml 310 ml Intake Oral 720 ml IV Total 310 ml Output Urine Total 600 ml # Voids 2 2 General Appearance: no acute distress, other - awake, alert, oriented AA male HEENT: normocephalic, atraumatic, anicteric, mucous membranes moist Respiratory/Chest: lungs clear, no respiratory distress, no accessory muscle use Cardiovascular: normal peripheral pulses, normal rate, regular rhythm, no JVD, other - LUE PICC intact Abdomen: normal bowel sounds, soft, non tender, non distended Genitourinary: normal external genitalia Extremities: other - + 1 edema BLE, Neurologic/Psychiatric: alert, oriented x 3, responsive, normal mood/affect Current Medications Medications (Trade) Dose Ordered Sig/Sharla Route PRN Reason Start Time Stop Time Status Last Admin Dose Admin Acetaminophen (Tylenol) 650 mg Q4H PRN ORAL T>100.5 02/11/17 19:30 03/13/17 19:29 Acetaminophen/ Hydrocodone Bitart 1 ea 1 ea Q6H PRN ORAL For Pain 02/19/17 11:45 02/26/17 11:44 02/20/17 00:16 Amlodipine Besylate (Norvasc) 5 mg BID ORAL 02/16/17 18:00 03/18/17 17:59 02/19/17 18:06 Ascorbic Acid (Vitamin C) 500 mg DAILY ORAL 02/17/17 09:00 03/19/17 08:59 02/19/17 09:29 Bisacodyl (Dulcolax) 10 mg DAILYPRN PRN RECTAL Constipation 02/13/17 12:15 03/15/17 12:14 02/13/17 13:30 Cefepime HCl/ Dextrose (Maxipime/D5W) 110 ml @ 220 mls/hr Q12HR IV 02/19/17 21:00 02/26/17 20:59 02/19/17 21:00 Clonidine HCl (Catapres) 0.1 mg Q4H PRN ORAL SBP > 160 02/11/17 19:30 03/13/17 19:29 02/19/17 11:37 Dextrose (Dextrose 50%) STAT PRN IV Hypoglycemia 02/11/17 19:30 03/13/17 19:29 Heparin Sodium (Porcine) (Heparin 5000 units/ml) 5,000 units EVERY 12 HOURS SUBQ 02/11/17 21:00 03/13/17 20:59 02/14/17 09:02 Methadone HCl (Methadone HCl) 80 mg DAILY ORAL 02/19/17 12:00 02/26/17 11:59 02/19/17 12:24 Metronidazole (Flagyl) 100 ml @ 100 mls/hr Q6H IVPB 02/11/17 22:00 02/24/17 21:59 02/20/17 04:05 Multivitamins (Multivitamins) 1 tab DAILY ORAL 02/17/17 09:00 03/19/17 08:59 02/19/17 09:29 Nitroglycerin (Ntg) 0.4 mg Q5M PRN SL Prn Chest Pain 02/11/17 19:15 03/13/17 19:14 Ondansetron HCl (Zofran) 4 mg Q6H PRN IVP Nausea & Vomiting 02/11/17 19:30 03/13/17 19:29 Polyethylene Glycol (Miralax) 17 gm DAILYPRN PRN ORAL Constipation 02/11/17 19:30 03/13/17 19:29 02/17/17 04:45 [facility] centerDorothy Jackson NP February 20, 2017 08:56
--- NOTE | 2017-02-20 09:36 | General Progress Note ---
Assessment/Plan Status: stable Assessment/Plan status: Renal Failure : Acute vs Chronic Cr lower Sepsis Cellulitis : bilateral lower extremity cellulitis, athletic foot, and possible right foot osteomyelitis. Gangrene Urine positive for Cocaine Anemia Proteinuria , HypoAlbuminemia Plan: stable from renal stand BP control- Monitor renal parameters Urine studies 2D echo : Left ventricular ejection fraction estimated to be 60 %. antibiotics and skin care ? DC planning? Subjective ROS Limited/Unobtainable: No Constitutional: Reports: malaise Allergies: Coded Allergies: PENICILLINS (Verified Allergy, Unknown, 02/10/17) Objective Last 24 Hour Vital Signs Date Time Temp Pulse Resp B/P Pulse Ox O2 Delivery O2 Flow Rate FiO2 02/20/17 08:48 77 154/88 02/20/17 08:00 98.1 77 19 154/88 94 Room Air 02/20/17 04:00 98.6 74 17 148/79 100 Room Air 02/20/17 01:15 98.6 02/20/17 00:00 98.6 87 19 157/87 94 Room Air 02/19/17 20:00 98.2 73 19 152/92 96 Room Air 02/19/17 19:33 85 18 Room Air 21 02/19/17 18:06 75 168/96 02/19/17 15:54 98.2 80 23 175/96 97 Room Air 02/19/17 13:53 78 159/84 02/19/17 12:33 76 160/90 02/19/17 11:48 99.0 85 22 184/110 94 Room Air 02/19/17 11:37 184/110 Intake and Output 02/19/17 02/20/17 19:00 07:00 Intake Total 720 ml 310 ml Output Total 600 ml Balance 120 ml 310 ml Intake Oral 720 ml IV Total 310 ml Output Urine Total 600 ml # Voids 2 2 Height (Feet): 6 Height (Inches): 3.00 Weight (Pounds): 245 General Appearance: no apparent distress Objective PE no change MART MOREIRA February 20, 2017 09:36
[2017-02-20 12:00] VITALS: BP 153/84
--- NOTE | 2017-02-20 14:29 | Podiatric Progress Note ---
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 No pain, nausea, vomiting, fevers, or chills reported. He has been minimally ambulating around the room. No overnight events reported Objective Exam Last 24 Hour Vital Signs Date Time Temp Pulse Resp B/P Pulse Ox O2 Delivery O2 Flow Rate FiO2 02/20/17 12:00 97.9 74 20 153/84 96 Room Air 02/20/17 08:48 77 154/88 02/20/17 08:00 98.1 77 19 154/88 94 Room Air 02/20/17 04:00 98.6 74 17 148/79 100 Room Air 02/20/17 01:15 98.6 02/20/17 00:00 98.6 87 19 157/87 94 Room Air 02/19/17 20:00 98.2 73 19 152/92 96 Room Air 02/19/17 19:33 85 18 Room Air 21 02/19/17 18:06 75 168/96 02/19/17 15:54 98.2 80 23 175/96 97 Room Air Microbiology Date/Time Source Procedure Growth Status 02/11/17 16:15 Blood Blood Culture - Final NO GROWTH AFTER 5 DAYS Complete 02/11/17 19:00 Wound Gram Stain - Preliminary Resulted 02/11/17 19:00 Wound Culture - Final Streptococcus Pyogenes Grp A Diphtheroids Resulted 02/11/17 19:00 Wound Aerobic Culture Pending Resulted 02/11/17 19:00 Wound Anaerobic Culture - Final NO ANAEROBES ISOLATED Resulted 02/10/17 03:45 Nasal Nares MRSA Culture - Final NO METHICILLIN RESISTANT STAPH AUREUS... Complete 02/10/17 03:45 Rectum VRE Culture - Final NO VANCOMYCIN RESISTANT ENTEROCOCCUS ... Complete Exam Narrative Bilateral hallux wounds are improving in size and quality. No purulence, malodor , or surrounding cellulitis noted. Faheem Rubin DPM February 20, 2017 14:29
[2017-02-20] MEDS ORDERED: Tubing IV Secondary IV ONE (15:23)
[2017-02-20 16:00] VITALS: BP 157/86
[2017-02-20] MEDS: Miralax 17gm pkt ORAL PRN (18:05)
[2017-02-20 20:00] VITALS: BP 162/96
[2017-02-20] MEDS: Dyna-Hex 2% Top Sol 8oz TOPIC SCH (23:08)
[2017-02-21] VITALS (7 sets, daily range): BP systolic 138–175; BP diastolic 77–95
[2017-02-21] MEDS: metroNIDAZOLE 500mg 100 ML IVPB SCH ×4 (03:27→21:55)
[2017-02-21 06:33] LABS: BASOPHILS % (AUTO) 1.3 % (0.0-2.0); EOSINOPHILS % (AUTO) 2.4 % (0.0-3.0); LYMPHOCYTES % (AUTO) 34.9 % (20.0-45.0); MEAN CORPUSCULAR HEMOGLOBIN 33.6 PG (27.0-31.0); MEAN CORPUSCULAR HGB CONC 32.9 G/DL (32.0-36.0); MEAN CORPUSCULAR VOLUME 102 FL (80-99); MEAN PLATELET VOLUME 9.1 FL (6.5-10.1); MONOCYTES % (AUTO) 6.4 % (1.0-10.0); PLATELET COUNT 101 K/UL (150-450); RED BLOOD COUNT 2.77 M/UL (4.70-6.10); RED CELL DISTRIBUTION WIDTH 13.3 % (11.6-14.8); WHITE BLOOD COUNT 5.5 K/UL (4.8-10.8)
[2017-02-21 06:46] LABS: ALANINE AMINOTRANSFERASE 26 U/L (3-41); ALBUMIN/GLOBULIN RATIO 0.3 (1.0-2.7); ANION GAP 9 (5-15); ASPARTATE AMINO TRANSFERASE 82 U/L (5-40); CALCIUM 8.4 mg/dL (8.6-10.2); CARBON DIOXIDE 28 mEQ/L (20-30); CHLORIDE 99 mEQ/L (98-107); CREATININE 1.1 mg/dL (0.7-1.2); GLOMERULAR FILTRATION RATE > 60 mL/min (>60); HEMOLYSIS 0; POTASSIUM 4.5 mEQ/L (3.4-4.9); SODIUM 136 mEQ/L (135-145); TOTAL PROTEIN 9.1 g/dL (6.6-8.7)
[2017-02-21] MEDS: Miralax 17gm pkt ORAL PRN (08:33)
[2017-02-21] MEDS: Ascorbic Acid 500mg tab ORAL SCH (08:35)
[2017-02-21] MEDS: Dyna-Hex 2% Top Sol 8oz TOPIC SCH (08:36)
[2017-02-21] MEDS: Heparin 5000 units/ml inj SUBQ SCH ×2 (08:36→20:29)
[2017-02-21] MEDS: Cefepime HCl 2 GM in D5W 110 ML IV SCH ×2 (08:41→20:29)
--- NOTE | 2017-02-21 12:22 | Pulmonology Progress Note ---
Assessment/Plan Assessment/Plan ASSESSMENT sepsis BLE cellulitis acute OM R foot bilateral hallux abscess s/p I&D and debridement 02/11 peripheral neuropathy HTN onychomycosis ARF anemia cocaine abuse homeless PLAN OF CARE [place] floor abx, ID follows wound cx + Strep pyogenes Group A R foot MRI c/w acute OM will need total 42 days of abx blood cx initially with SCON and Diphtheroid, likely contaminant, repeated blood cx negative podiatry follows wound care as per podiatry recommendations s/p I&D at the bedside, , s/p toenails debridement Arterial Duplex no evidence of significant arterial occlusive disease Venous Duplex BLE negative ARF resolved, , likely due to dehydration , s/p IVF Nepro follows stable from renal standpoint monitor LFT , trending down hepatitis panel with + hep C abdominal US with borderline HM, no ascites HIV negative low PLT but stable, no trend down, if started to trend down will dc Heparin BP management with CCB and optimize as needed ECHO with EF 60% and RVSP of 34, no evidence of vegetation Bowel regimen DVT prophylaxis PT/OT monitor HH, transfuse prn academic 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 from 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 awaiting placement for short term SNF for IV abx case discussed and evaluated by supervising physician Subjective Allergies: Coded Allergies: PENICILLINS (Verified Allergy, Unknown, 02/10/17) Subjective admits to foot pain( right plantar area ) denies chest pain, SOB Objective Last 24 Hour Vital Signs Date Time Temp Pulse Resp B/P Pulse Ox O2 Delivery O2 Flow Rate FiO2 02/21/17 11:57 97.9 72 21 158/85 97 Room Air 02/21/17 08:35 80 175/95 02/21/17 08:35 175/95 02/21/17 08:30 99.7 80 18 175/95 95 Room Air 02/21/17 04:00 97.9 69 19 138/84 95 Room Air 02/21/17 01:23 154/77 02/21/17 00:00 98.2 83 19 155/89 96 Room Air 02/20/17 20:00 99.2 85 20 162/96 98 Room Air 02/20/17 18:05 77 157/86 02/20/17 16:00 98.2 77 20 157/86 97 Room Air Intake and Output 02/20/17 02/21/17 19:00 07:00 Intake Total 1150 ml 310 ml Output Total 785 ml Balance 365 ml 310 ml Intake Oral 840 ml IV Total 310 ml 310 ml Output Urine Total 785 ml # Voids 3 Objective General Appearance: no acute distress, awake, alert, oriented AA male HEENT: normocephalic, atraumatic, anicteric, mucous membranes moist Respiratory/Chest: lungs clear, no respiratory distress, no accessory muscle use Cardiovascular: normal peripheral pulses, normal rate, regular rhythm, no JVD, other - LUE PICC intact Abdomen: normal bowel sounds, soft, non tender, non distended Genitourinary: normal external genitalia Extremities: other - + 1 edema BLE, Neurologic/Psychiatric: alert, oriented x 3, responsive, normal mood/affect Laboratory Tests 02/21/17 05:15: White Blood Count 5.5, Red Blood Count 2.77L, Hemoglobin 9.3L, Hematocrit 28.3L , Mean Corpuscular Volume 102H, Mean Corpuscular Hemoglobin 33.6H, Mean Corpuscular Hemoglobin Concent 32.9, Red Cell Distribution Width 13.3, Platelet Count 101L, Mean Platelet Volume 9.1, Neutrophils (%) (Auto) 55.0, Lymphocytes ( %) (Auto) 34.9, Monocytes (%) (Auto) 6.4, Eosinophils (%) (Auto) 2.4, Basophils (%) (Auto) 1.3, Sodium Level 136, Potassium Level 4.5, Chloride Level 99, Carbon Dioxide Level 28, Anion Gap 9, Blood Urea Nitrogen 18, Creatinine 1.1, Estimat Glomerular Filtration Rate > 60, Glucose Level 70L, Calcium Level 8.4L, Total Bilirubin 0.8, Aspartate Amino Transf (AST/SGOT) 82H, Alanine Aminotransferase (ALT/SGPT) 26, Alkaline Phosphatase 91, Total Creatine Kinase 86, Pro-B-Type Natriuretic Peptide 749H, Total Protein 9.1H, Albumin 2.3L, Globulin 6.8, Albumin/Globulin Ratio 0.3L Current Medications Medications (Trade) Dose Ordered Sig/Sharla Route PRN Reason Start Time Stop Time Status Last Admin Dose Admin Acetaminophen (Tylenol) 650 mg Q4H PRN ORAL T>100.5 02/11/17 19:30 03/13/17 19:29 Acetaminophen/ Hydrocodone Bitart 1 ea 1 ea Q6H PRN ORAL For Pain 02/19/17 11:45 02/26/17 11:44 02/20/17 23:32 Amlodipine Besylate (Norvasc) 5 mg BID ORAL 02/16/17 18:00 03/18/17 17:59 02/21/17 08:35 Ascorbic Acid (Vitamin C) 500 mg DAILY ORAL 02/17/17 09:00 03/19/17 08:59 02/21/17 08:35 Bisacodyl (Dulcolax) 10 mg DAILYPRN PRN RECTAL Constipation 02/13/17 12:15 03/15/17 12:14 02/13/17 13:30 Cefepime HCl/ Dextrose (Maxipime/D5W) 110 ml @ 220 mls/hr Q12HR IV 02/19/17 21:00 02/26/17 20:59 02/21/17 08:41 Chlorhexidine Gluconate (Chastity-Hex 2%) 1 applic DAILY TOPIC 02/20/17 23:00 03/22/17 22:59 02/21/17 08:36 Clonidine HCl (Catapres) 0.1 mg Q4H PRN ORAL SBP > 160 02/11/17 19:30 03/13/17 19:29 02/21/17 08:35 Dextrose (Dextrose 50%) STAT PRN IV Hypoglycemia 02/11/17 19:30 03/13/17 19:29 Heparin Sodium (Porcine) (Heparin 5000 units/ml) 5,000 units EVERY 12 HOURS SUBQ 02/11/17 21:00 03/13/17 20:59 02/14/17 09:02 Methadone HCl (Methadone HCl) 80 mg DAILY ORAL 02/19/17 12:00 02/26/17 11:59 02/21/17 08:35 Metronidazole (Flagyl) 100 ml @ 100 mls/hr Q6H IVPB 02/11/17 22:00 02/24/17 21:59 02/21/17 10:05 Multivitamins (Multivitamins) 1 tab DAILY ORAL 02/17/17 09:00 03/19/17 08:59 02/21/17 08:35 Nitroglycerin (Ntg) 0.4 mg Q5M PRN SL Prn Chest Pain 02/11/17 19:15 03/13/17 19:14 Ondansetron HCl (Zofran) 4 mg Q6H PRN IVP Nausea & Vomiting 02/11/17 19:30 03/13/17 19:29 Polyethylene Glycol (Miralax) 17 gm DAILYPRN PRN ORAL Constipation 02/11/17 19:30 03/13/17 19:29 02/21/17 08:33 Sae ([facility])Dorothy NP February 21, 2017 12:22
--- NOTE | 2017-02-21 13:48 | General Progress Note ---
Assessment/Plan Status: stable Assessment/Plan status: Renal Failure : Acute vs Chronic Cr lower Sepsis Cellulitis : bilateral lower extremity cellulitis, athletic foot, and possible right foot osteomyelitis. Gangrene Urine positive for Cocaine Anemia Proteinuria , HypoAlbuminemia Plan: stable from renal stand BP control- Monitor renal parameters Urine studies 2D echo : Left ventricular ejection fraction estimated to be 60 %. antibiotics and skin care ? DC planning? Subjective ROS Limited/Unobtainable: No Constitutional: Reports: malaise, weakness Allergies: Coded Allergies: PENICILLINS (Verified Allergy, Unknown, 02/10/17) Objective Last 24 Hour Vital Signs Date Time Temp Pulse Resp B/P Pulse Ox O2 Delivery O2 Flow Rate FiO2 02/21/17 11:57 97.9 72 21 158/85 97 Room Air 02/21/17 08:35 80 175/95 02/21/17 08:35 175/95 02/21/17 08:30 99.7 80 18 175/95 95 Room Air 02/21/17 04:00 97.9 69 19 138/84 95 Room Air 02/21/17 01:23 154/77 02/21/17 00:00 98.2 83 19 155/89 96 Room Air 02/20/17 20:00 99.2 85 20 162/96 98 Room Air 02/20/17 18:05 77 157/86 02/20/17 16:00 98.2 77 20 157/86 97 Room Air Intake and Output 02/20/17 02/21/17 19:00 07:00 Intake Total 1150 ml 310 ml Output Total 785 ml Balance 365 ml 310 ml Intake Oral 840 ml IV Total 310 ml 310 ml Output Urine Total 785 ml # Voids 3 Laboratory Tests 02/21/17 05:15: White Blood Count 5.5, Red Blood Count 2.77L, Hemoglobin 9.3L, Hematocrit 28.3L , Mean Corpuscular Volume 102H, Mean Corpuscular Hemoglobin 33.6H, Mean Corpuscular Hemoglobin Concent 32.9, Red Cell Distribution Width 13.3, Platelet Count 101L, Mean Platelet Volume 9.1, Neutrophils (%) (Auto) 55.0, Lymphocytes ( %) (Auto) 34.9, Monocytes (%) (Auto) 6.4, Eosinophils (%) (Auto) 2.4, Basophils (%) (Auto) 1.3, Sodium Level 136, Potassium Level 4.5, Chloride Level 99, Carbon Dioxide Level 28, Anion Gap 9, Blood Urea Nitrogen 18, Creatinine 1.1, Estimat Glomerular Filtration Rate > 60, Glucose Level 70L, Calcium Level 8.4L, Total Bilirubin 0.8, Aspartate Amino Transf (AST/SGOT) 82H, Alanine Aminotransferase (ALT/SGPT) 26, Alkaline Phosphatase 91, Total Creatine Kinase 86, Pro-B-Type Natriuretic Peptide 749H, Total Protein 9.1H, Albumin 2.3L, Globulin 6.8, Albumin/Globulin Ratio 0.3L Height (Feet): 6 Height (Inches): 3.00 Weight (Pounds): 245 General Appearance: no apparent distress Respiratory/Chest: decreased breath sounds Abdomen: soft Edema: 3+ Arm (L), 3+ Arm (R), 3+ Leg (L), 3+ Leg (R), 3+ Pedal (L), 3+ Pedal ( R), 3+ Generalized Objective PE no change MART MOREIRA February 21, 2017 13:48
[2017-02-21] MEDS: Norco 10mg/325mg tab ORAL PRN (15:32)
[2017-02-21] MEDS ORDERED: NS 275ml ONE (17:33)
[2017-02-22] VITALS: BP 159/92
[2017-02-22] MEDS: metroNIDAZOLE 500mg 100 ML IVPB SCH ×4 (03:24→22:00)
[2017-02-22 04:00] VITALS: BP 163/93
[2017-02-22 08:00] VITALS: BP 162/95
[2017-02-22] MEDS: Cefepime HCl 2 GM in D5W 110 ML IV SCH ×2 (08:52→20:21)
[2017-02-22] MEDS: Norco 10mg/325mg tab ORAL PRN (08:54)
[2017-02-22] MEDS: Ascorbic Acid 500mg tab ORAL SCH (08:54)
[2017-02-22] MEDS: Dyna-Hex 2% Top Sol 8oz TOPIC SCH (08:57)
[2017-02-22] MEDS: Heparin 5000 units/ml inj SUBQ SCH ×2 (08:57→20:21)
--- NOTE | 2017-02-22 11:05 | General Progress Note ---
Assessment/Plan Status: stable - from renal stand Assessment/Plan status: Renal Failure : Acute vs Chronic Cr lower Sepsis Cellulitis : bilateral lower extremity cellulitis, athletic foot, and possible right foot osteomyelitis. Gangrene Urine positive for Cocaine Anemia Proteinuria , HypoAlbuminemia Plan: stable from renal stand BP control- Monitor renal parameters Urine studies 2D echo : Left ventricular ejection fraction estimated to be 60 %. antibiotics and skin care ? DC planning? Subjective ROS Limited/Unobtainable: No Constitutional: Reports: malaise Allergies: Coded Allergies: PENICILLINS (Verified Allergy, Unknown, 02/10/17) Objective Last 24 Hour Vital Signs Date Time Temp Pulse Resp B/P Pulse Ox O2 Delivery O2 Flow Rate FiO2 02/22/17 08:54 89 162/95 02/22/17 08:54 162/95 02/22/17 08:00 99.3 89 20 162/95 97 Room Air 02/22/17 04:00 97.9 78 20 163/93 97 Room Air 02/22/17 00:00 98.2 71 20 159/92 97 Room Air 02/21/17 20:00 98.4 76 20 161/93 96 Room Air 02/21/17 17:56 64 143/84 02/21/17 16:25 97.5 64 20 143/84 100 Room Air 02/21/17 11:57 97.9 72 21 158/85 97 Room Air Intake and Output 02/21/17 02/22/17 19:00 07:00 Intake Total 960 ml 670 ml Output Total 400 ml Balance 960 ml 270 ml Intake Oral 960 ml 360 ml IV Total 310 ml Output Urine Total 400 ml # Voids 3 2 # Bowel Movements 1 Height (Feet): 6 Height (Inches): 3.00 Weight (Pounds): 245 General Appearance: no apparent distress Objective PE no change MART MOREIRA February 22, 2017 11:05
--- NOTE | 2017-02-22 11:29 | Pulmonology Progress Note ---
Assessment/Plan Assessment/Plan ASSESSMENT sepsis BLE cellulitis acute OM R foot bilateral hallux abscess s/p I&D and debridement 02/11 peripheral neuropathy HTN onychomycosis ARF anemia cocaine abuse homeless PLAN OF CARE MS floor abx, ID follows wound cx + Strep pyogenes Group A R foot MRI c/w acute OM will need total 42 days of abx blood cx initially with SCON and Diphtheroid, likely contaminant, repeated blood cx negative podiatry follows wound care as per podiatry recommendations s/p I&D at the bedside, , s/p toenails debridement Arterial Duplex no evidence of significant arterial occlusive disease Venous Duplex BLE negative ARF resolved, , likely due to dehydration , s/p IVF Nepro follows stable from renal standpoint monitor LFT , trending down hepatitis panel with + hep C abdominal US with borderline HM, no ascites HIV negative low PLT but stable, no trend down, if started to trend down will dc Heparin BP management with CCB and optimize as needed ECHO with EF 60% and RVSP of 34, no evidence of vegetation Bowel regimen DVT prophylaxis PT/OT monitor HH, transfuse prn family service 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 from 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 awaiting placement for short term SNF for IV abx case discussed and evaluated by supervising physician Subjective Allergies: Coded Allergies: PENICILLINS (Verified Allergy, Unknown, 02/10/17) Subjective admits to right foot pain denies chest pain, SOB Objective Last 24 Hour Vital Signs Date Time Temp Pulse Resp B/P Pulse Ox O2 Delivery O2 Flow Rate FiO2 02/22/17 09:53 99.3 02/22/17 08:54 89 162/95 02/22/17 08:54 162/95 02/22/17 08:00 99.3 89 20 162/95 97 Room Air 02/22/17 04:00 97.9 78 20 163/93 97 Room Air 02/22/17 00:00 98.2 71 20 159/92 97 Room Air 02/21/17 20:00 98.4 76 20 161/93 96 Room Air 02/21/17 17:56 64 143/84 02/21/17 16:25 97.5 64 20 143/84 100 Room Air 02/21/17 11:57 97.9 72 21 158/85 97 Room Air Intake and Output 02/21/17 02/22/17 19:00 07:00 Intake Total 960 ml 670 ml Output Total 400 ml Balance 960 ml 270 ml Intake Oral 960 ml 360 ml IV Total 310 ml Output Urine Total 400 ml # Voids 3 2 # Bowel Movements 1 Objective General Appearance: no acute distress, awake, alert, oriented AA male HEENT: normocephalic, atraumatic, anicteric, mucous membranes moist Respiratory/Chest: lungs clear, no respiratory distress, no accessory muscle use Cardiovascular: normal peripheral pulses, normal rate, regular rhythm, no JVD, other - LUE PICC intact Abdomen: normal bowel sounds, soft, non tender, non distended Genitourinary: normal external genitalia Extremities: other - + 1 edema BLE, Neurologic/Psychiatric: alert, oriented x 3, responsive, normal mood/affect Current Medications Medications (Trade) Dose Ordered Sig/Sharla Route PRN Reason Start Time Stop Time Status Last Admin Dose Admin Acetaminophen (Tylenol) 650 mg Q4H PRN ORAL T>100.5 02/11/17 19:30 03/13/17 19:29 Acetaminophen/ Hydrocodone Bitart 1 ea 1 ea Q6H PRN ORAL For Pain 02/19/17 11:45 02/26/17 11:44 02/22/17 08:54 Amlodipine Besylate (Norvasc) 5 mg BID ORAL 02/16/17 18:00 03/18/17 17:59 02/22/17 08:54 Ascorbic Acid (Vitamin C) 500 mg DAILY ORAL 02/17/17 09:00 03/19/17 08:59 02/22/17 08:54 Bisacodyl (Dulcolax) 10 mg DAILYPRN PRN RECTAL Constipation 02/13/17 12:15 03/15/17 12:14 02/13/17 13:30 Cefepime HCl/ Dextrose (Maxipime/D5W) 110 ml @ 220 mls/hr Q12HR IV 02/19/17 21:00 02/26/17 20:59 02/22/17 08:52 Chlorhexidine Gluconate (Chastity-Hex 2%) 1 applic DAILY TOPIC 02/20/17 23:00 03/22/17 22:59 02/22/17 08:57 Clonidine HCl (Catapres) 0.1 mg Q4H PRN ORAL SBP > 160 02/11/17 19:30 03/13/17 19:29 02/22/17 08:54 Dextrose (Dextrose 50%) STAT PRN IV Hypoglycemia 02/11/17 19:30 03/13/17 19:29 Heparin Sodium (Porcine) (Heparin 5000 units/ml) 5,000 units EVERY 12 HOURS SUBQ 02/11/17 21:00 03/13/17 20:59 02/14/17 09:02 Methadone HCl (Methadone HCl) 80 mg DAILY ORAL 02/19/17 12:00 02/26/17 11:59 02/22/17 08:53 Metronidazole (Flagyl) 100 ml @ 100 mls/hr Q6H IVPB 02/11/17 22:00 02/24/17 21:59 02/22/17 11:13 Multivitamins (Multivitamins) 1 tab DAILY ORAL 02/17/17 09:00 03/19/17 08:59 02/22/17 08:56 Nitroglycerin (Ntg) 0.4 mg Q5M PRN SL Prn Chest Pain 02/11/17 19:15 03/13/17 19:14 Ondansetron HCl (Zofran) 4 mg Q6H PRN IVP Nausea & Vomiting 02/11/17 19:30 03/13/17 19:29 Polyethylene Glycol (Miralax) 17 gm DAILYPRN PRN ORAL Constipation 02/11/17 19:30 03/13/17 19:29 02/21/17 08:33 Dorothy Quevedo NP ([facility]) February 22, 2017 11:29
--- NOTE | 2017-02-22 11:54 | Infectious Diseases Prog Note ---
Assessment/Plan Assessment/Plan A; sepsis BLE cellulitis acute OM R foot bilateral hallux abscess s/p I&D and debridement 02/11 peripheral neuropathy HPN onychomycosis ARF anemia cocaine abuse homeless Hepatitis C P; Continue Cefepime Subjective ROS Limited/Unobtainable: No Constitutional: Reports: no symptoms Respiratory: Reports: no symptoms Cardiovascular: Reports: no symptoms Gastrointestinal/Abdominal: Reports: no symptoms Musculoskeletal: Reports: other - in legs, pain - Allergies: Coded Allergies: PENICILLINS (Verified Allergy, Unknown, 02/10/17) Objective Vital Signs Last 24 Hour Vital Signs Date Time Temp Pulse Resp B/P Pulse Ox O2 Delivery O2 Flow Rate FiO2 02/22/17 09:53 99.3 02/22/17 08:54 89 162/95 02/22/17 08:54 162/95 02/22/17 08:00 99.3 89 20 162/95 97 Room Air 02/22/17 04:00 97.9 78 20 163/93 97 Room Air 02/22/17 00:00 98.2 71 20 159/92 97 Room Air 02/21/17 20:00 98.4 76 20 161/93 96 Room Air 02/21/17 17:56 64 143/84 02/21/17 16:25 97.5 64 20 143/84 100 Room Air 02/21/17 11:57 97.9 72 21 158/85 97 Room Air Height (Feet): 6 Height (Inches): 3.00 Weight (Pounds): 245 General Appearance: no acute distress HEENT: mucous membranes moist Respiratory/Chest: lungs clear Cardiovascular: normal rate Abdomen: normal bowel sounds, soft, non tender Extremities: other - edema of legs,left arm PICC line Skin: ulcers, other - toes Neurologic/Psychiatric: alert, oriented x 3, responsive Current Medications Medications (Trade) Dose Ordered Sig/Sharla Route PRN Reason Start Time Stop Time Status Last Admin Dose Admin Acetaminophen (Tylenol) 650 mg Q4H PRN ORAL T>100.5 02/11/17 19:30 03/13/17 19:29 Acetaminophen/ Hydrocodone Bitart 1 ea 1 ea Q6H PRN ORAL For Pain 02/19/17 11:45 02/26/17 11:44 02/22/17 08:54 Amlodipine Besylate (Norvasc) 5 mg BID ORAL 02/16/17 18:00 03/18/17 17:59 02/22/17 08:54 Ascorbic Acid (Vitamin C) 500 mg DAILY ORAL 02/17/17 09:00 03/19/17 08:59 02/22/17 08:54 Bisacodyl (Dulcolax) 10 mg DAILYPRN PRN RECTAL Constipation 02/13/17 12:15 03/15/17 12:14 02/13/17 13:30 Cefepime HCl/ Dextrose (Maxipime/D5W) 110 ml @ 220 mls/hr Q12HR IV 02/19/17 21:00 02/26/17 20:59 02/22/17 08:52 Chlorhexidine Gluconate (Chastity-Hex 2%) 1 applic DAILY TOPIC 02/20/17 23:00 03/22/17 22:59 02/22/17 08:57 Clonidine HCl (Catapres) 0.1 mg Q4H PRN ORAL SBP > 160 02/11/17 19:30 03/13/17 19:29 02/22/17 08:54 Dextrose (Dextrose 50%) STAT PRN IV Hypoglycemia 02/11/17 19:30 03/13/17 19:29 Heparin Sodium (Porcine) (Heparin 5000 units/ml) 5,000 units EVERY 12 HOURS SUBQ 02/11/17 21:00 03/13/17 20:59 02/14/17 09:02 Methadone HCl (Methadone HCl) 80 mg DAILY ORAL 02/19/17 12:00 02/26/17 11:59 02/22/17 08:53 Metronidazole (Flagyl) 100 ml @ 100 mls/hr Q6H IVPB 02/11/17 22:00 02/24/17 21:59 02/22/17 11:13 Multivitamins (Multivitamins) 1 tab DAILY ORAL 02/17/17 09:00 03/19/17 08:59 02/22/17 08:56 Nitroglycerin (Ntg) 0.4 mg Q5M PRN SL Prn Chest Pain 02/11/17 19:15 03/13/17 19:14 Ondansetron HCl (Zofran) 4 mg Q6H PRN IVP Nausea & Vomiting 02/11/17 19:30 03/13/17 19:29 Polyethylene Glycol (Miralax) 17 gm DAILYPRN PRN ORAL Constipation 02/11/17 19:30 03/13/17 19:29 02/21/17 08:33 AROLDO KOHLI February 22, 2017 11:54
[2017-02-22 12:00] VITALS: BP 159/76
[2017-02-22] MEDS ORDERED: Tubing IV Secondary IV ONE (14:18)
[2017-02-22 16:00] VITALS: BP 147/91
[2017-02-22 20:00] VITALS: BP 137/80
[2017-02-22] MEDS: Miralax 17gm pkt ORAL PRN (21:05)
[2017-02-23] VITALS: BP 153/72
[2017-02-23] MEDS: metroNIDAZOLE 500mg 100 ML IVPB SCH ×4 (03:48→21:18)
[2017-02-23 04:00] VITALS: BP 130/76
[2017-02-23 04:57] LABS: BASOPHILS % (AUTO) 1.7 % (0.0-2.0); EOSINOPHILS % (AUTO) 2.3 % (0.0-3.0); LYMPHOCYTES % (AUTO) 30.9 % (20.0-45.0); MEAN CORPUSCULAR HEMOGLOBIN 33.4 PG (27.0-31.0); MEAN CORPUSCULAR VOLUME 101 FL (80-99); MEAN PLATELET VOLUME 9.5 FL (6.5-10.1); MONOCYTES % (AUTO) 7.1 % (1.0-10.0); NEUTROPHILS % (AUTO) 58.1 % (45.0-75.0); PLATELET COUNT 121 K/UL (150-450); RED BLOOD COUNT 2.69 M/UL (4.70-6.10); RED CELL DISTRIBUTION WIDTH 13.1 % (11.6-14.8); WHITE BLOOD COUNT 5.9 K/UL (4.8-10.8)
[2017-02-23 05:15] LABS: ANION GAP 8 (5-15); CALCIUM 8.3 mg/dL (8.6-10.2); CARBON DIOXIDE 28 mEQ/L (20-30); CHLORIDE 99 mEQ/L (98-107); CREATININE 0.9 mg/dL (0.7-1.2); GLOMERULAR FILTRATION RATE > 60 mL/min (>60); HEMOLYSIS 0; POTASSIUM 4.5 mEQ/L (3.4-4.9); SODIUM 135 mEQ/L (135-145)
[2017-02-23 08:08] VITALS: BP 149/92
[2017-02-23] MEDS: Dyna-Hex 2% Top Sol 8oz TOPIC SCH (09:00)
--- NOTE | 2017-02-23 09:37 | Infectious Diseases Prog Note ---
Assessment/Plan Assessment/Plan ASSESSMENT: 61-year-old male with: Bilateral lower extremity cellulitis, and osteomyelitis of the right foot - WCx GAS.pyogenes, diptheroids I&D was performed at bedside of bilateral hallux abscess 02/11 MRI : Acute osteomyelitis suspected with regard to the first distal phalange , second distal phalange, and proximal fifth phalange Polymicrobial ( CONS 2/4, Diptheroids 1/4 ) bacteremia, possible contaminant - repeat BCx 02/11 Neg Transaminitis Hep C Ab+, PCR >2million HIV neg Fever x1 - resolved Leukocytosis - resolved Renal Failure : Acute vs Chronic Cr lower HTN U tox +ve for cocaine and opiates Homeless PCN allergy - tolerating cefepime Full Code PLAN: Continue IV cefepime and Flagyl d# 14 / 42 ( SP vancomycin d# 7 ) outpt HCV Rx eval Monitor liver function tests Monitor CBC and BMP wound care Subjective Allergies: Coded Allergies: PENICILLINS (Verified Allergy, Unknown, 02/10/17) Subjective afebrile no new complain Objective Vital Signs Last 24 Hour Vital Signs Date Time Temp Pulse Resp B/P Pulse Ox O2 Delivery O2 Flow Rate FiO2 02/23/17 08:08 98.1 72 21 149/92 97 Room Air 02/23/17 04:00 97.4 72 18 130/76 96 Room Air 02/23/17 00:00 97.7 73 20 153/72 Room Air 02/22/17 20:00 97.8 70 18 137/80 98 Room Air 02/22/17 19:34 70 147/91 02/22/17 16:00 98.1 70 20 147/91 97 Room Air 02/22/17 12:00 98.4 78 20 159/76 96 Room Air 02/22/17 09:53 99.3 Height (Feet): 6 Height (Inches): 3.00 Weight (Pounds): 245 HEENT: atraumatic Respiratory/Chest: lungs clear Cardiovascular: no gallop/murmur Abdomen: non distended Laboratory Tests Test 02/23/17 04:00 White Blood Count 5.9 K/UL (4.8-10.8) Red Blood Count 2.69 M/UL (4.70-6.10) L Hemoglobin 9.0 G/DL (14.2-18.0) L Hematocrit 27.2 % (42.0-52.0) L Mean Corpuscular Volume 101 FL (80-99) H Mean Corpuscular Hemoglobin 33.4 PG (27.0-31.0) H Mean Corpuscular Hemoglobin Concent 33.0 G/DL (32.0-36.0) Red Cell Distribution Width 13.1 % (11.6-14.8) Platelet Count 121 K/UL (150-450) L Mean Platelet Volume 9.5 FL (6.5-10.1) Neutrophils (%) (Auto) 58.1 % (45.0-75.0) Lymphocytes (%) (Auto) 30.9 % (20.0-45.0) Monocytes (%) (Auto) 7.1 % (1.0-10.0) Eosinophils (%) (Auto) 2.3 % (0.0-3.0) Basophils (%) (Auto) 1.7 % (0.0-2.0) Sodium Level 135 mEQ/L (135-145) Potassium Level 4.5 mEQ/L (3.4-4.9) Chloride Level 99 mEQ/L (98-107) Carbon Dioxide Level 28 mEQ/L (20-30) Anion Gap 8 (5-15) Blood Urea Nitrogen 18 mg/dL (7-23) Creatinine 0.9 mg/dL (0.7-1.2) Estimat Glomerular Filtration Rate > 60 mL/min (>60) Glucose Level 68 mg/dL (74-106) L Calcium Level 8.3 mg/dL (8.6-10.2) L Current Medications Medications (Trade) Dose Ordered Sig/Sharla Route PRN Reason Start Time Stop Time Status Last Admin Dose Admin Acetaminophen (Tylenol) 650 mg Q4H PRN ORAL T>100.5 02/11/17 19:30 03/13/17 19:29 Acetaminophen/ Hydrocodone Bitart 1 ea 1 ea Q6H PRN ORAL For Pain 02/19/17 11:45 02/26/17 11:44 02/22/17 08:54 Amlodipine Besylate (Norvasc) 5 mg BID ORAL 02/16/17 18:00 03/18/17 17:59 02/22/17 19:34 Ascorbic Acid (Vitamin C) 500 mg DAILY ORAL 02/17/17 09:00 03/19/17 08:59 02/22/17 08:54 Bisacodyl (Dulcolax) 10 mg DAILYPRN PRN RECTAL Constipation 02/13/17 12:15 03/15/17 12:14 02/13/17 13:30 Cefepime HCl/ Dextrose (Maxipime/D5W) 110 ml @ 220 mls/hr Q12HR IV 02/19/17 21:00 02/26/17 20:59 02/22/17 20:21 Chlorhexidine Gluconate (Chastity-Hex 2%) 1 applic DAILY TOPIC 02/20/17 23:00 03/22/17 22:59 02/22/17 08:57 Clonidine HCl (Catapres) 0.1 mg Q4H PRN ORAL SBP > 160 02/11/17 19:30 03/13/17 19:29 02/22/17 08:54 Dextrose (Dextrose 50%) STAT PRN IV Hypoglycemia 02/11/17 19:30 03/13/17 19:29 Heparin Sodium (Porcine) (Heparin 5000 units/ml) 5,000 units EVERY 12 HOURS SUBQ 02/11/17 21:00 03/13/17 20:59 02/14/17 09:02 Methadone HCl (Methadone HCl) 80 mg DAILY ORAL 02/19/17 12:00 02/26/17 11:59 02/22/17 08:53 Metronidazole (Flagyl) 100 ml @ 100 mls/hr Q6H IVPB 02/11/17 22:00 02/24/17 21:59 02/23/17 03:48 Multivitamins (Multivitamins) 1 tab DAILY ORAL 02/17/17 09:00 03/19/17 08:59 02/22/17 08:56 Nitroglycerin (Ntg) 0.4 mg Q5M PRN SL Prn Chest Pain 02/11/17 19:15 03/13/17 19:14 Ondansetron HCl (Zofran) 4 mg Q6H PRN IVP Nausea & Vomiting 02/11/17 19:30 03/13/17 19:29 Polyethylene Glycol (Miralax) 17 gm DAILYPRN PRN ORAL Constipation 02/11/17 19:30 03/13/17 19:29 02/22/17 21:05 YODIT CASTAÑEDA M.D. 22, 2017 09:37
[2017-02-23] MEDS: Cefepime HCl 2 GM in D5W 110 ML IV SCH ×2 (09:40→20:35)
[2017-02-23] MEDS: Ascorbic Acid 500mg tab ORAL SCH (09:41)
[2017-02-23] MEDS: Heparin 5000 units/ml inj SUBQ SCH ×2 (09:45→20:35)
--- NOTE | 2017-02-23 11:05 | General Progress Note ---
Assessment/Plan Status: stable - from renal stand Assessment/Plan status: Renal Failure : Acute vs Chronic Cr lower Sepsis Cellulitis : bilateral lower extremity cellulitis, athletic foot, and possible right foot osteomyelitis. Gangrene Urine positive for Cocaine Anemia Proteinuria , HypoAlbuminemia Plan: stable from renal stand BP control- Monitor renal parameters Urine studies 2D echo : Left ventricular ejection fraction estimated to be 60 %. antibiotics and skin care ? DC planning? Subjective ROS Limited/Unobtainable: No Constitutional: Reports: malaise Allergies: Coded Allergies: PENICILLINS (Verified Allergy, Unknown, 02/10/17) Objective Last 24 Hour Vital Signs Date Time Temp Pulse Resp B/P Pulse Ox O2 Delivery O2 Flow Rate FiO2 02/23/17 09:41 72 149/92 02/23/17 08:08 98.1 72 21 149/92 97 Room Air 02/23/17 04:00 97.4 72 18 130/76 96 Room Air 02/23/17 00:00 97.7 73 20 153/72 Room Air 02/22/17 20:00 97.8 70 18 137/80 98 Room Air 02/22/17 19:34 70 147/91 02/22/17 16:00 98.1 70 20 147/91 97 Room Air 02/22/17 12:00 98.4 78 20 159/76 96 Room Air Intake and Output 02/22/17 02/23/17 19:00 07:00 Intake Total 570 ml 790 ml Balance 570 ml 790 ml Intake Oral 360 ml 480 ml IV Total 210 ml 310 ml # Voids 3 5 # Bowel Movements 1 Laboratory Tests 02/23/17 04:00: White Blood Count 5.9, Red Blood Count 2.69L, Hemoglobin 9.0L, Hematocrit 27.2L , Mean Corpuscular Volume 101H, Mean Corpuscular Hemoglobin 33.4H, Mean Corpuscular Hemoglobin Concent 33.0, Red Cell Distribution Width 13.1, Platelet Count 121L, Mean Platelet Volume 9.5, Neutrophils (%) (Auto) 58.1, Lymphocytes ( %) (Auto) 30.9, Monocytes (%) (Auto) 7.1, Eosinophils (%) (Auto) 2.3, Basophils (%) (Auto) 1.7, Sodium Level 135, Potassium Level 4.5, Chloride Level 99, Carbon Dioxide Level 28, Anion Gap 8, Blood Urea Nitrogen 18, Creatinine 0.9, Estimat Glomerular Filtration Rate > 60, Glucose Level 68L, Calcium Level 8.3L Height (Feet): 6 Height (Inches): 3.00 Weight (Pounds): 245 General Appearance: no apparent distress Objective PE no change MART MOREIRA February 23, 2017 11:05
[2017-02-23 11:38] VITALS: BP 161/86
[2017-02-23 15:53] VITALS: BP 150/71
[2017-02-23] MEDS ORDERED: Tubing IV Secondary IV ONE (18:05)
[2017-02-23 20:00] VITALS: BP 158/91
--- NOTE | 2017-02-23 23:02 | Pulmonology Progress Note ---
Assessment/Plan Problems: (1) Sepsis (2) Gangrene (3) Homelessness (4) Drug abuse Assessment/Plan iv abx check labs periodically no new events all notes reviewed dc planning in process Subjective ROS Limited/Unobtainable: No Allergies: Coded Allergies: PENICILLINS (Verified Allergy, Unknown, 02/10/17) Objective Last 24 Hour Vital Signs Date Time Temp Pulse Resp B/P Pulse Ox O2 Delivery O2 Flow Rate FiO2 02/23/17 20:00 98.2 72 19 158/91 97 Room Air 02/23/17 17:06 72 150/71 02/23/17 15:53 98.2 72 21 150/71 95 Room Air 02/23/17 12:00 161/86 02/23/17 11:38 98.4 75 22 161/86 99 Room Air 02/23/17 09:41 72 149/92 02/23/17 08:08 98.1 72 21 149/92 97 Room Air 02/23/17 04:00 97.4 72 18 130/76 96 Room Air 02/23/17 00:00 97.7 73 20 153/72 Room Air Intake and Output 02/22/17 02/23/17 19:00 07:00 Intake Total 570 ml 790 ml Balance 570 ml 790 ml Intake Oral 360 ml 480 ml IV Total 210 ml 310 ml # Voids 3 5 # Bowel Movements 1 Objective General Appearance: WD/WN HEENT: normocephalic Respiratory/Chest: chest wall non-tender, lungs clear Cardiovascular: normal peripheral pulses, regular rhythm Abdomen: normal bowel sounds, soft, non tender Genitourinary: normal external genitalia Extremities: no cyanosis, clean dressing on feet Laboratory Tests 02/23/17 04:00: White Blood Count 5.9, Red Blood Count 2.69L, Hemoglobin 9.0L, Hematocrit 27.2L , Mean Corpuscular Volume 101H, Mean Corpuscular Hemoglobin 33.4H, Mean Corpuscular Hemoglobin Concent 33.0, Red Cell Distribution Width 13.1, Platelet Count 121L, Mean Platelet Volume 9.5, Neutrophils (%) (Auto) 58.1, Lymphocytes ( %) (Auto) 30.9, Monocytes (%) (Auto) 7.1, Eosinophils (%) (Auto) 2.3, Basophils (%) (Auto) 1.7, Sodium Level 135, Potassium Level 4.5, Chloride Level 99, Carbon Dioxide Level 28, Anion Gap 8, Blood Urea Nitrogen 18, Creatinine 0.9, Estimat Glomerular Filtration Rate > 60, Glucose Level 68L, Calcium Level 8.3L Current Medications Medications (Trade) Dose Ordered Sig/Sharla Route PRN Reason Start Time Stop Time Status Last Admin Dose Admin Acetaminophen (Tylenol) 650 mg Q4H PRN ORAL T>100.5 02/11/17 19:30 03/13/17 19:29 Acetaminophen/ Hydrocodone Bitart 1 ea 1 ea Q6H PRN ORAL For Pain 02/19/17 11:45 02/26/17 11:44 02/22/17 08:54 Amlodipine Besylate (Norvasc) 5 mg BID ORAL 02/16/17 18:00 03/18/17 17:59 02/23/17 17:06 Ascorbic Acid (Vitamin C) 500 mg DAILY ORAL 02/17/17 09:00 03/19/17 08:59 02/23/17 09:41 Bisacodyl (Dulcolax) 10 mg DAILYPRN PRN RECTAL Constipation 02/13/17 12:15 03/15/17 12:14 02/13/17 13:30 Cefepime HCl/ Dextrose (Maxipime/D5W) 110 ml @ 220 mls/hr Q12HR IV 02/19/17 21:00 02/26/17 20:59 02/23/17 20:35 Chlorhexidine Gluconate (Chastity-Hex 2%) 1 applic DAILY TOPIC 02/20/17 23:00 03/22/17 22:59 02/22/17 08:57 Clonidine HCl (Catapres) 0.1 mg Q4H PRN ORAL SBP > 160 02/11/17 19:30 03/13/17 19:29 02/23/17 12:00 Dextrose (Dextrose 50%) STAT PRN IV Hypoglycemia 02/11/17 19:30 03/13/17 19:29 Heparin Sodium (Porcine) (Heparin 5000 units/ml) 5,000 units EVERY 12 HOURS SUBQ 02/11/17 21:00 03/13/17 20:59 02/23/17 20:35 Methadone HCl (Methadone HCl) 80 mg DAILY ORAL 02/19/17 12:00 02/26/17 11:59 02/23/17 09:42 Metronidazole (Flagyl) 100 ml @ 100 mls/hr Q6H IVPB 02/11/17 22:00 03/02/17 21:59 02/23/17 21:18 Multivitamins (Multivitamins) 1 tab DAILY ORAL 02/17/17 09:00 03/19/17 08:59 02/23/17 09:41 Nitroglycerin (Ntg) 0.4 mg Q5M PRN SL Prn Chest Pain 02/11/17 19:15 03/13/17 19:14 Ondansetron HCl (Zofran) 4 mg Q6H PRN IVP Nausea & Vomiting 02/11/17 19:30 03/13/17 19:29 Polyethylene Glycol (Miralax) 17 gm DAILYPRN PRN ORAL Constipation 02/11/17 19:30 03/13/17 19:29 02/22/17 21:05 RASHAAD GALLAGHER February 23, 2017 23:02
[2017-02-24] VITALS: BP 122/97
[2017-02-24] MEDS: metroNIDAZOLE 500mg 100 ML IVPB SCH ×4 (03:18→22:14)
[2017-02-24] MEDS: Norco 10mg/325mg tab ORAL PRN ×2 (03:29→19:59)
[2017-02-24 04:00] VITALS: BP 161/88
[2017-02-24 08:26] VITALS: BP 157/94
[2017-02-24] MEDS: Ascorbic Acid 500mg tab ORAL SCH (08:39)
[2017-02-24] MEDS: Cefepime HCl 2 GM in D5W 110 ML IV SCH ×2 (08:39→20:33)
[2017-02-24] MEDS: Heparin 5000 units/ml inj SUBQ SCH ×2 (08:41→20:39)
[2017-02-24] MEDS: Dyna-Hex 2% Top Sol 8oz TOPIC SCH (08:43)
--- NOTE | 2017-02-24 09:32 | Infectious Diseases Prog Note ---
Assessment/Plan Assessment/Plan ASSESSMENT: 61-year-old male with: Bilateral lower extremity cellulitis, and osteomyelitis of the right foot - WCx GAS.pyogenes, diptheroids I&D was performed at bedside of bilateral hallux abscess 02/11 MRI : Acute osteomyelitis suspected with regard to the first distal phalange , second distal phalange, and proximal fifth phalange Polymicrobial ( CONS 2/4, Diptheroids 1/4 ) bacteremia, possible contaminant - repeat BCx 02/11 Neg Transaminitis Hep C Ab+, PCR >2million HIV neg Fever x1 - resolved Leukocytosis - resolved Renal Failure : Acute vs Chronic Cr lower HTN U tox +ve for cocaine and opiates Homeless PCN allergy - tolerating cefepime Full Code PLAN: Continue IV cefepime and Flagyl d# 15 / 42 ( SP vancomycin d# 7 ) outpt HCV Rx eval Monitor liver function tests Monitor CBC and BMP wound care Subjective Allergies: Coded Allergies: PENICILLINS (Verified Allergy, Unknown, 02/10/17) Subjective comfortable Objective Vital Signs Last 24 Hour Vital Signs Date Time Temp Pulse Resp B/P Pulse Ox O2 Delivery O2 Flow Rate FiO2 02/24/17 08:39 80 157/94 02/24/17 08:26 98.2 80 22 157/94 99 Room Air 02/24/17 04:00 98.2 84 20 161/88 95 Room Air 02/24/17 00:00 99.1 82 20 122/97 98 Room Air 02/23/17 20:00 98.2 72 19 158/91 97 Room Air 02/23/17 17:06 72 150/71 02/23/17 15:53 98.2 72 21 150/71 95 Room Air 02/23/17 12:00 161/86 02/23/17 11:38 98.4 75 22 161/86 99 Room Air 02/23/17 09:41 72 149/92 Height (Feet): 6 Height (Inches): 3.00 Weight (Pounds): 245 HEENT: anicteric Respiratory/Chest: no respiratory distress Cardiovascular: regularly irregular Abdomen: non distended Current Medications Medications (Trade) Dose Ordered Sig/Sharla Route PRN Reason Start Time Stop Time Status Last Admin Dose Admin Acetaminophen (Tylenol) 650 mg Q4H PRN ORAL T>100.5 02/11/17 19:30 03/13/17 19:29 Acetaminophen/ Hydrocodone Bitart 1 ea 1 ea Q6H PRN ORAL For Pain 02/19/17 11:45 02/26/17 11:44 02/24/17 03:29 Amlodipine Besylate (Norvasc) 5 mg BID ORAL 02/16/17 18:00 03/18/17 17:59 02/24/17 08:39 Ascorbic Acid (Vitamin C) 500 mg DAILY ORAL 02/17/17 09:00 03/19/17 08:59 02/24/17 08:39 Bisacodyl (Dulcolax) 10 mg DAILYPRN PRN RECTAL Constipation 02/13/17 12:15 03/15/17 12:14 02/13/17 13:30 Cefepime HCl/ Dextrose (Maxipime/D5W) 110 ml @ 220 mls/hr Q12HR IV 02/19/17 21:00 02/26/17 20:59 02/24/17 08:39 Chlorhexidine Gluconate (Chastity-Hex 2%) 1 applic DAILY TOPIC 02/20/17 23:00 03/22/17 22:59 02/24/17 08:43 Clonidine HCl (Catapres) 0.1 mg Q4H PRN ORAL SBP > 160 02/11/17 19:30 03/13/17 19:29 02/23/17 12:00 Dextrose (Dextrose 50%) STAT PRN IV Hypoglycemia 02/11/17 19:30 03/13/17 19:29 Heparin Sodium (Porcine) (Heparin 5000 units/ml) 5,000 units EVERY 12 HOURS SUBQ 02/11/17 21:00 03/13/17 20:59 02/24/17 08:41 Methadone HCl (Methadone HCl) 80 mg DAILY ORAL 02/19/17 12:00 02/26/17 11:59 02/24/17 08:40 Metronidazole (Flagyl) 100 ml @ 100 mls/hr Q6H IVPB 02/11/17 22:00 03/02/17 21:59 02/24/17 03:18 Multivitamins (Multivitamins) 1 tab DAILY ORAL 02/17/17 09:00 03/19/17 08:59 02/24/17 08:39 Nitroglycerin (Ntg) 0.4 mg Q5M PRN SL Prn Chest Pain 02/11/17 19:15 03/13/17 19:14 Ondansetron HCl (Zofran) 4 mg Q6H PRN IVP Nausea & Vomiting 02/11/17 19:30 03/13/17 19:29 Polyethylene Glycol (Miralax) 17 gm DAILYPRN PRN ORAL Constipation 02/11/17 19:30 03/13/17 19:29 02/22/17 21:05 YODIT CASTAÑEDA M.D. February 24, 2017 09:32
--- NOTE | 2017-02-24 10:57 | General Progress Note ---
Assessment/Plan Status: unchanged Assessment/Plan status: Renal Failure : Acute vs Chronic Cr lower Sepsis Cellulitis : bilateral lower extremity cellulitis, athletic foot, and possible right foot osteomyelitis. Gangrene Urine positive for Cocaine Anemia Proteinuria , HypoAlbuminemia Plan: stable from renal stand BP control- Monitor renal parameters Urine studies 2D echo : Left ventricular ejection fraction estimated to be 60 %. antibiotics and skin care ? DC planning? Subjective ROS Limited/Unobtainable: No Constitutional: Reports: malaise Allergies: Coded Allergies: PENICILLINS (Verified Allergy, Unknown, 02/10/17) Objective Last 24 Hour Vital Signs Date Time Temp Pulse Resp B/P Pulse Ox O2 Delivery O2 Flow Rate FiO2 02/24/17 08:39 80 157/94 02/24/17 08:26 98.2 80 22 157/94 99 Room Air 02/24/17 04:00 98.2 84 20 161/88 95 Room Air 02/24/17 00:00 99.1 82 20 122/97 98 Room Air 02/23/17 20:00 98.2 72 19 158/91 97 Room Air 02/23/17 17:06 72 150/71 02/23/17 15:53 98.2 72 21 150/71 95 Room Air 02/23/17 12:00 161/86 02/23/17 11:38 98.4 75 22 161/86 99 Room Air Intake and Output 02/23/17 02/24/17 19:00 07:00 Intake Total 720 ml 310 ml Output Total 350 ml 700 ml Balance 370 ml -390 ml Intake Oral 720 ml IV Total 310 ml Output Urine Total 350 ml 700 ml # Voids 1 Height (Feet): 6 Height (Inches): 3.00 Weight (Pounds): 245 General Appearance: no apparent distress Objective PE no change MART MOREIRA February 24, 2017 10:57
[2017-02-24 12:15] VITALS: BP 158/90
[2017-02-24 16:02] VITALS: BP 151/82
[2017-02-24 20:00] VITALS: BP 161/92
--- NOTE | 2017-02-24 23:38 | Pulmonology Progress Note ---
Assessment/Plan Problems: (1) Sepsis (2) Gangrene (3) Homelessness (4) Drug abuse Assessment/Plan iv abx check labs periodically no new events all notes reviewed dc planning in process difficult placement Subjective ROS Limited/Unobtainable: No Allergies: Coded Allergies: PENICILLINS (Verified Allergy, Unknown, 02/10/17) Objective Last 24 Hour Vital Signs Date Time Temp Pulse Resp B/P Pulse Ox O2 Delivery O2 Flow Rate FiO2 02/24/17 20:00 99.7 86 20 161/92 98 Room Air 02/24/17 18:18 59 151/82 02/24/17 16:02 97.6 59 20 151/82 97 Room Air 02/24/17 12:15 97.7 77 20 158/90 96 Room Air 02/24/17 08:39 80 157/94 02/24/17 08:26 98.2 80 22 157/94 99 Room Air 02/24/17 04:00 98.2 84 20 161/88 95 Room Air 02/24/17 00:00 99.1 82 20 122/97 98 Room Air Intake and Output 02/23/17 02/24/17 19:00 07:00 Intake Total 720 ml 310 ml Output Total 350 ml 700 ml Balance 370 ml -390 ml Intake Oral 720 ml IV Total 310 ml Output Urine Total 350 ml 700 ml # Voids 1 Objective General Appearance: WD/WN HEENT: normocephalic Respiratory/Chest: chest wall non-tender, lungs clear Cardiovascular: normal peripheral pulses, regular rhythm Abdomen: normal bowel sounds, soft, non tender Genitourinary: normal external genitalia Extremities: no cyanosis, clean dressing on feet Current Medications Medications (Trade) Dose Ordered Sig/Sharla Route PRN Reason Start Time Stop Time Status Last Admin Dose Admin Acetaminophen (Tylenol) 650 mg Q4H PRN ORAL T>100.5 02/11/17 19:30 03/13/17 19:29 Acetaminophen/ Hydrocodone Bitart 1 ea 1 ea Q6H PRN ORAL For Pain 02/19/17 11:45 02/26/17 11:44 02/24/17 19:59 Amlodipine Besylate (Norvasc) 5 mg BID ORAL 02/16/17 18:00 03/18/17 17:59 02/24/17 18:18 Ascorbic Acid (Vitamin C) 500 mg DAILY ORAL 02/17/17 09:00 03/19/17 08:59 02/24/17 08:39 Bisacodyl (Dulcolax) 10 mg DAILYPRN PRN RECTAL Constipation 02/13/17 12:15 03/15/17 12:14 02/13/17 13:30 Cefepime HCl/ Dextrose (Maxipime/D5W) 110 ml @ 220 mls/hr Q12HR IV 02/19/17 21:00 03/03/17 20:59 02/24/17 20:33 Chlorhexidine Gluconate (Chastity-Hex 2%) 1 applic DAILY TOPIC 02/20/17 23:00 03/22/17 22:59 02/24/17 08:43 Clonidine HCl (Catapres) 0.1 mg Q4H PRN ORAL SBP > 160 02/11/17 19:30 03/13/17 19:29 02/23/17 12:00 Dextrose (Dextrose 50%) STAT PRN IV Hypoglycemia 02/11/17 19:30 03/13/17 19:29 Heparin Sodium (Porcine) (Heparin 5000 units/ml) 5,000 units EVERY 12 HOURS SUBQ 02/11/17 21:00 03/13/17 20:59 02/24/17 08:41 Methadone HCl (Methadone HCl) 80 mg DAILY ORAL 02/19/17 12:00 02/26/17 11:59 02/24/17 08:40 Metronidazole (Flagyl) 100 ml @ 100 mls/hr Q6H IVPB 02/11/17 22:00 03/02/17 21:59 02/24/17 22:14 Multivitamins (Multivitamins) 1 tab DAILY ORAL 02/17/17 09:00 03/19/17 08:59 02/24/17 08:39 Nitroglycerin (Ntg) 0.4 mg Q5M PRN SL Prn Chest Pain 02/11/17 19:15 03/13/17 19:14 Ondansetron HCl (Zofran) 4 mg Q6H PRN IVP Nausea & Vomiting 02/11/17 19:30 03/13/17 19:29 Polyethylene Glycol (Miralax) 17 gm DAILYPRN PRN ORAL Constipation 02/11/17 19:30 03/13/17 19:29 02/22/17 21:05 RASHAAD GALLAGHER 23, 2017 23:38
[2017-02-25] VITALS: BP 151/80
[2017-02-25 04:00] VITALS: BP 161/91
[2017-02-25] MEDS: metroNIDAZOLE 500mg 100 ML IVPB SCH ×4 (04:02→22:03)
[2017-02-25] MEDS: Norco 10mg/325mg tab ORAL PRN ×2 (04:13→16:08)
[2017-02-25 08:08] VITALS: BP 157/92
[2017-02-25] MEDS: Cefepime HCl 2 GM in D5W 110 ML IV SCH ×2 (08:37→20:35)
[2017-02-25] MEDS: Ascorbic Acid 500mg tab ORAL SCH (08:38)
[2017-02-25] MEDS: Heparin 5000 units/ml inj SUBQ SCH ×2 (08:41→20:36)
[2017-02-25] MEDS: Dyna-Hex 2% Top Sol 8oz TOPIC SCH (10:23)
--- NOTE | 2017-02-25 11:25 | Podiatric Progress Note ---
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 Infectious disease specialist is following Subjective Reason for consult Bilateral foot ulcers Allergies: Coded Allergies: PENICILLINS (Verified Allergy, Unknown, 02/10/17) Subjective Patient is doing well. No pain at bilateral feet and no nausea, vomiting, fevers , or chills reported. Patient has been minimally ambulating to go to the restroom. No other pedal complaints at this time Objective Exam Last 24 Hour Vital Signs Date Time Temp Pulse Resp B/P Pulse Ox O2 Delivery O2 Flow Rate FiO2 02/25/17 08:38 64 157/92 02/25/17 08:08 98.2 64 18 157/92 97 Room Air 02/25/17 04:44 161/94 02/25/17 04:00 98.1 76 18 161/91 95 Room Air 02/25/17 00:00 97.0 73 20 151/80 95 Room Air 02/24/17 20:00 99.7 86 20 161/92 98 Room Air 02/24/17 18:18 59 151/82 02/24/17 16:02 97.6 59 20 151/82 97 Room Air 02/24/17 12:15 97.7 77 20 158/90 96 Room Air Microbiology Date/Time Source Procedure Growth Status 02/11/17 16:15 Blood Blood Culture - Final NO GROWTH AFTER 5 DAYS Complete 02/11/17 19:00 Wound Gram Stain - Preliminary Resulted 02/11/17 19:00 Wound Culture - Final Streptococcus Pyogenes Grp A Diphtheroids Resulted 02/11/17 19:00 Wound Aerobic Culture Pending Resulted 02/11/17 19:00 Wound Anaerobic Culture - Final NO ANAEROBES ISOLATED Resulted 02/10/17 03:45 Nasal Nares MRSA Culture - Final NO METHICILLIN RESISTANT STAPH AUREUS... Complete 02/10/17 03:45 Rectum VRE Culture - Final NO VANCOMYCIN RESISTANT ENTEROCOCCUS ... Complete Exam Narrative Left hallux wound is healed. Right hallux ulcer has improved in quality and size. No surrounding cellulitis noted IMAGIN02/10/17 Impression: Acute osteomyelitis suspected with regard to the first distal phalange, second distal phalange, and proximal fifth phalange. Please correlate clinically. Generalized cellulitis of the foot. Bone marrow edema (T2 hyperintensity) within the third and fourth distal phalanges with normal T1 signal. This is less specific and findings may be due to reactive bone marrow edema. Faheem Rubin DPM February 25, 2017 11:25
[2017-02-25 11:58] VITALS: BP 151/90
--- NOTE | 2017-02-25 13:30 | General Progress Note ---
Assessment/Plan Status: stable Assessment/Plan status: Renal Failure : Acute vs Chronic Cr lower Sepsis Cellulitis : bilateral lower extremity cellulitis, athletic foot, and possible right foot osteomyelitis. Gangrene Urine positive for Cocaine Anemia Proteinuria , HypoAlbuminemia Plan: stable from renal stand BP control- Monitor renal parameters Urine studies 2D echo : Left ventricular ejection fraction estimated to be 60 %. antibiotics and skin care ? DC planning? Subjective ROS Limited/Unobtainable: No Constitutional: Reports: malaise Allergies: Coded Allergies: PENICILLINS (Verified Allergy, Unknown, 02/10/17) Objective Last 24 Hour Vital Signs Date Time Temp Pulse Resp B/P Pulse Ox O2 Delivery O2 Flow Rate FiO2 02/25/17 11:58 98.1 71 18 151/90 96 Room Air 02/25/17 08:38 64 157/92 02/25/17 08:08 98.2 64 18 157/92 97 Room Air 02/25/17 04:44 161/94 02/25/17 04:00 98.1 76 18 161/91 95 Room Air 02/25/17 00:00 97.0 73 20 151/80 95 Room Air 02/24/17 20:00 99.7 86 20 161/92 98 Room Air 02/24/17 18:18 59 151/82 02/24/17 16:02 97.6 59 20 151/82 97 Room Air Intake and Output 02/24/17 02/25/17 19:00 07:00 Intake Total 1270 ml 790 ml Output Total 300 ml Balance 970 ml 790 ml Intake Oral 960 ml 480 ml IV Total 310 ml 310 ml Output Urine Total 300 ml # Voids 4 5 Height (Feet): 6 Height (Inches): 3.00 Weight (Pounds): 245 General Appearance: no apparent distress Objective PE no change MART MOREIRA February 25, 2017 13:30
[2017-02-25 15:59] VITALS: BP 149/82
--- NOTE | 2017-02-25 18:26 | Pulmonology Progress Note ---
Assessment/Plan Problems: (1) Sepsis (2) Gangrene (3) Homelessness (4) Drug abuse Assessment/Plan iv abx check labs periodically no new events all notes reviewed dc planning in process difficult placement Subjective ROS Limited/Unobtainable: No Allergies: Coded Allergies: PENICILLINS (Verified Allergy, Unknown, 02/10/17) Objective Last 24 Hour Vital Signs Date Time Temp Pulse Resp B/P Pulse Ox O2 Delivery O2 Flow Rate FiO2 02/25/17 17:35 75 149/82 02/25/17 17:07 98.6 02/25/17 15:59 98.6 75 18 149/82 96 Room Air 02/25/17 11:58 98.1 71 18 151/90 96 Room Air 02/25/17 08:38 64 157/92 02/25/17 08:08 98.2 64 18 157/92 97 Room Air 02/25/17 04:44 161/94 02/25/17 04:00 98.1 76 18 161/91 95 Room Air 02/25/17 00:00 97.0 73 20 151/80 95 Room Air 02/24/17 20:00 99.7 86 20 161/92 98 Room Air Intake and Output 02/24/17 02/25/17 19:00 07:00 Intake Total 1270 ml 790 ml Output Total 300 ml Balance 970 ml 790 ml Intake Oral 960 ml 480 ml IV Total 310 ml 310 ml Output Urine Total 300 ml # Voids 4 5 Objective General Appearance: WD/WN HEENT: normocephalic Respiratory/Chest: chest wall non-tender, lungs clear Cardiovascular: normal peripheral pulses, regular rhythm Abdomen: normal bowel sounds, soft, non tender Genitourinary: normal external genitalia Extremities: no cyanosis, clean dressing on feet Current Medications Medications (Trade) Dose Ordered Sig/Sharla Route PRN Reason Start Time Stop Time Status Last Admin Dose Admin Acetaminophen (Tylenol) 650 mg Q4H PRN ORAL T>100.5 02/11/17 19:30 03/13/17 19:29 Acetaminophen/ Hydrocodone Bitart 1 ea 1 ea Q6H PRN ORAL For Pain 02/19/17 11:45 02/26/17 11:44 02/25/17 16:08 Amlodipine Besylate (Norvasc) 5 mg BID ORAL 02/16/17 18:00 03/18/17 17:59 02/25/17 17:35 Ascorbic Acid (Vitamin C) 500 mg DAILY ORAL 02/17/17 09:00 03/19/17 08:59 02/25/17 08:38 Bisacodyl (Dulcolax) 10 mg DAILYPRN PRN RECTAL Constipation 02/13/17 12:15 03/15/17 12:14 02/13/17 13:30 Cefepime HCl/ Dextrose (Maxipime/D5W) 110 ml @ 220 mls/hr Q12HR IV 02/19/17 21:00 03/03/17 20:59 02/25/17 08:37 Chlorhexidine Gluconate (Chastity-Hex 2%) 1 applic DAILY TOPIC 02/20/17 23:00 03/22/17 22:59 02/25/17 10:23 Clonidine HCl (Catapres) 0.1 mg Q4H PRN ORAL SBP > 160 02/11/17 19:30 03/13/17 19:29 02/25/17 04:44 Dextrose (Dextrose 50%) STAT PRN IV Hypoglycemia 02/11/17 19:30 03/13/17 19:29 Heparin Sodium (Porcine) (Heparin 5000 units/ml) 5,000 units EVERY 12 HOURS SUBQ 02/11/17 21:00 03/13/17 20:59 02/25/17 08:41 Methadone HCl (Methadone HCl) 80 mg DAILY ORAL 02/19/17 12:00 02/26/17 11:59 02/25/17 08:37 Metronidazole (Flagyl) 100 ml @ 100 mls/hr Q6H IVPB 02/11/17 22:00 03/02/17 21:59 02/25/17 16:06 Multivitamins (Multivitamins) 1 tab DAILY ORAL 02/17/17 09:00 03/19/17 08:59 02/25/17 08:38 Nitroglycerin (Ntg) 0.4 mg Q5M PRN SL Prn Chest Pain 02/11/17 19:15 03/13/17 19:14 Ondansetron HCl (Zofran) 4 mg Q6H PRN IVP Nausea & Vomiting 02/11/17 19:30 03/13/17 19:29 Polyethylene Glycol (Miralax) 17 gm DAILYPRN PRN ORAL Constipation 02/11/17 19:30 03/13/17 19:29 02/22/17 21:05 RASHAAD GALLAGHER February 25, 2017 18:26
[2017-02-25 20:00] VITALS: BP 132/83
[2017-02-26] VITALS: BP 171/95
[2017-02-26] MEDS: metroNIDAZOLE 500mg 100 ML IVPB SCH ×4 (03:51→21:38)
[2017-02-26 03:55] VITALS: BP 156/99
[2017-02-26 08:00] VITALS: BP 179/107
[2017-02-26] MEDS: Cefepime HCl 2 GM in D5W 110 ML IV SCH ×2 (08:23→20:09)
[2017-02-26] MEDS: Ascorbic Acid 500mg tab ORAL SCH (08:24)
[2017-02-26] MEDS: Dyna-Hex 2% Top Sol 8oz TOPIC SCH (08:25)
[2017-02-26] MEDS: Heparin 5000 units/ml inj SUBQ SCH ×2 (08:25→20:10)
--- NOTE | 2017-02-26 11:26 | General Progress Note ---
Assessment/Plan Status: stable Assessment/Plan status: Renal Failure : Acute vs Chronic Cr lower Sepsis Cellulitis : bilateral lower extremity cellulitis, athletic foot, and possible right foot osteomyelitis. Gangrene Urine positive for Cocaine Anemia Proteinuria , HypoAlbuminemia Plan: stable from renal stand BP control- Monitor renal parameters Urine studies 2D echo : Left ventricular ejection fraction estimated to be 60 %. antibiotics and skin care ? DC planning? Placement issue. Subjective ROS Limited/Unobtainable: No Constitutional: Reports: malaise Allergies: Coded Allergies: PENICILLINS (Verified Allergy, Unknown, 02/10/17) Objective Last 24 Hour Vital Signs Date Time Temp Pulse Resp B/P Pulse Ox O2 Delivery O2 Flow Rate FiO2 02/26/17 08:24 80 179/107 02/26/17 08:00 99.0 80 20 179/107 96 Room Air 02/26/17 03:55 98.1 78 17 156/99 95 Room Air 02/26/17 00:00 98.2 81 19 171/95 96 Room Air 02/25/17 20:00 99.1 74 18 132/83 97 Room Air 02/25/17 17:35 75 149/82 02/25/17 17:07 98.6 02/25/17 15:59 98.6 75 18 149/82 96 Room Air 02/25/17 11:58 98.1 71 18 151/90 96 Room Air Intake and Output 02/25/17 02/26/17 19:00 07:00 Intake Total 1510 ml 310 ml Output Total 1500 ml Balance 10 ml 310 ml Intake Oral 1200 ml IV Total 310 ml 310 ml Output Urine Total 1500 ml # Voids 5 Height (Feet): 6 Height (Inches): 3.00 Weight (Pounds): 245 General Appearance: no apparent distress Objective PE no change MART MOREIRA February 26, 2017 11:26
--- NOTE | 2017-02-26 11:50 | Infectious Diseases Prog Note ---
Assessment/Plan Assessment/Plan ASSESSMENT: 61-year-old male with: Bilateral lower extremity cellulitis, and osteomyelitis of the right foot - WCx GAS.pyogenes, diptheroids I&D was performed at bedside of bilateral hallux abscess 02/11 MRI : Acute osteomyelitis suspected with regard to the first distal phalange , second distal phalange, and proximal fifth phalange Polymicrobial ( CONS 2/4, Diptheroids 1/4 ) bacteremia, possible contaminant - repeat BCx 02/11 Neg Transaminitis Hep C Ab+, PCR >2million HIV neg Fever x1 - resolved Leukocytosis - resolved Renal Failure : Acute vs Chronic Cr lower HTN U tox +ve for cocaine and opiates Homeless PCN allergy - tolerating cefepime Full Code PLAN: Continue IV cefepime and Flagyl d# 17 / ( SP vancomycin d# 7 ) outpt HCV Rx eval Monitor liver function tests Monitor CBC and BMP wound care Subjective Constitutional: Denies: anorexia, chills, drenching sweats, fatigue, fever, no symptoms, other Allergies: Coded Allergies: PENICILLINS (Verified Allergy, Unknown, 02/10/17) Subjective comfortable Objective Vital Signs Last 24 Hour Vital Signs Date Time Temp Pulse Resp B/P Pulse Ox O2 Delivery O2 Flow Rate FiO2 02/26/17 08:24 80 179/107 02/26/17 08:00 99.0 80 20 179/107 96 Room Air 02/26/17 03:55 98.1 78 17 156/99 95 Room Air 02/26/17 00:00 98.2 81 19 171/95 96 Room Air 02/25/17 20:00 99.1 74 18 132/83 97 Room Air 02/25/17 17:35 75 149/82 02/25/17 17:07 98.6 02/25/17 15:59 98.6 75 18 149/82 96 Room Air 02/25/17 11:58 98.1 71 18 151/90 96 Room Air Height (Feet): 6 Height (Inches): 3.00 Weight (Pounds): 245 HEENT: anicteric Respiratory/Chest: lungs clear Abdomen: no mass Current Medications Medications (Trade) Dose Ordered Sig/Sharla Route PRN Reason Start Time Stop Time Status Last Admin Dose Admin Acetaminophen (Tylenol) 650 mg Q4H PRN ORAL T>100.5 02/11/17 19:30 03/13/17 19:29 Amlodipine Besylate (Norvasc) 5 mg BID ORAL 02/16/17 18:00 03/18/17 17:59 02/26/17 08:24 Ascorbic Acid (Vitamin C) 500 mg DAILY ORAL 02/17/17 09:00 03/19/17 08:59 02/26/17 08:24 Bisacodyl (Dulcolax) 10 mg DAILYPRN PRN RECTAL Constipation 02/13/17 12:15 03/15/17 12:14 02/13/17 13:30 Cefepime HCl/ Dextrose (Maxipime/D5W) 110 ml @ 220 mls/hr Q12HR IV 02/19/17 21:00 03/03/17 20:59 02/26/17 08:23 Chlorhexidine Gluconate (Chastity-Hex 2%) 1 applic DAILY TOPIC 02/20/17 23:00 03/22/17 22:59 02/26/17 08:25 Clonidine HCl (Catapres) 0.1 mg Q4H PRN ORAL SBP > 160 02/11/17 19:30 03/13/17 19:29 02/25/17 04:44 Dextrose (Dextrose 50%) STAT PRN IV Hypoglycemia 02/11/17 19:30 03/13/17 19:29 Heparin Sodium (Porcine) (Heparin 5000 units/ml) 5,000 units EVERY 12 HOURS SUBQ 02/11/17 21:00 03/13/17 20:59 02/26/17 08:25 Methadone HCl 80 mg 80 mg DAILY ORAL 02/19/17 12:00 02/26/17 11:59 02/26/17 08:24 Metronidazole (Flagyl) 100 ml @ 100 mls/hr Q6H IVPB 02/11/17 22:00 03/02/17 21:59 02/26/17 10:12 Multivitamins (Multivitamins) 1 tab DAILY ORAL 02/17/17 09:00 03/19/17 08:59 02/26/17 08:24 Nitroglycerin (Ntg) 0.4 mg Q5M PRN SL Prn Chest Pain 02/11/17 19:15 03/13/17 19:14 Ondansetron HCl (Zofran) 4 mg Q6H PRN IVP Nausea & Vomiting 5/10/17 19:30 03/13/17 19:29 Polyethylene Glycol (Miralax) 17 gm DAILYPRN PRN ORAL Constipation 02/11/17 19:30 03/13/17 19:29 02/22/17 21:05 YODIT CASTAÑEDA M.D. February 26, 2017 11:50
[2017-02-26 12:00] VITALS: BP 167/95
--- NOTE | 2017-02-26 15:02 | Pulmonology Progress Note ---
Assessment/Plan Problems: (1) Sepsis (2) Gangrene (3) Homelessness (4) Drug abuse Assessment/Plan iv abx check labs periodically no new events all notes reviewed dc planning in process difficult placement anemia w/u ordered Subjective ROS Limited/Unobtainable: No Allergies: Coded Allergies: PENICILLINS (Verified Allergy, Unknown, 02/10/17) Objective Last 24 Hour Vital Signs Date Time Temp Pulse Resp B/P Pulse Ox O2 Delivery O2 Flow Rate FiO2 02/26/17 12:00 98.1 70 20 167/95 97 Room Air 02/26/17 08:24 80 179/107 02/26/17 08:00 99.0 80 20 179/107 96 Room Air 02/26/17 03:55 98.1 78 17 156/99 95 Room Air 02/26/17 00:00 98.2 81 19 171/95 96 Room Air 02/25/17 20:00 99.1 74 18 132/83 97 Room Air 02/25/17 17:35 75 149/82 02/25/17 17:07 98.6 02/25/17 15:59 98.6 75 18 149/82 96 Room Air Intake and Output 02/25/17 02/26/17 19:00 07:00 Intake Total 1510 ml 310 ml Output Total 1500 ml Balance 10 ml 310 ml Intake Oral 1200 ml IV Total 310 ml 310 ml Output Urine Total 1500 ml # Voids 5 Objective General Appearance: WD/WN HEENT: normocephalic Respiratory/Chest: chest wall non-tender, lungs clear Cardiovascular: normal peripheral pulses, regular rhythm Abdomen: normal bowel sounds, soft, non tender Genitourinary: normal external genitalia Extremities: no cyanosis, clean dressing on feet Current Medications Medications (Trade) Dose Ordered Sig/Sharla Route PRN Reason Start Time Stop Time Status Last Admin Dose Admin Acetaminophen (Tylenol) 650 mg Q4H PRN ORAL T>100.5 02/11/17 19:30 03/13/17 19:29 Amlodipine Besylate (Norvasc) 5 mg BID ORAL 02/16/17 18:00 03/18/17 17:59 02/26/17 08:24 Ascorbic Acid 500 mg 500 mg DAILY ORAL 02/17/17 09:00 03/19/17 08:59 02/26/17 08:24 Bisacodyl (Dulcolax) 10 mg DAILYPRN PRN RECTAL Constipation 02/13/17 12:15 03/15/17 12:14 02/13/17 13:30 Cefepime HCl/ Dextrose (Maxipime/D5W) 110 ml @ 220 mls/hr Q12HR IV 02/19/17 21:00 03/03/17 20:59 02/26/17 08:23 Chlorhexidine Gluconate (Chastity-Hex 2%) 1 applic DAILY TOPIC 02/20/17 23:00 03/22/17 22:59 02/26/17 08:25 Clonidine HCl (Catapres) 0.1 mg Q4H PRN ORAL SBP > 160 02/11/17 19:30 03/13/17 19:29 02/25/17 04:44 Dextrose (Dextrose 50%) STAT PRN IV Hypoglycemia 02/11/17 19:30 03/13/17 19:29 Heparin Sodium (Porcine) (Heparin 5000 units/ml) 5,000 units EVERY 12 HOURS SUBQ 02/11/17 21:00 03/13/17 20:59 02/26/17 08:25 Metronidazole (Flagyl) 100 ml @ 100 mls/hr Q6H IVPB 02/11/17 22:00 03/02/17 21:59 02/26/17 10:12 Multivitamins (Multivitamins) 1 tab DAILY ORAL 02/17/17 09:00 03/19/17 08:59 02/26/17 08:24 Nitroglycerin (Ntg) 0.4 mg Q5M PRN SL Prn Chest Pain 02/11/17 19:15 03/13/17 19:14 Ondansetron HCl (Zofran) 4 mg Q6H PRN IVP Nausea & Vomiting 02/11/17 19:30 03/13/17 19:29 Polyethylene Glycol (Miralax) 17 gm DAILYPRN PRN ORAL Constipation 02/11/17 19:30 03/13/17 19:29 02/22/17 21:05 RASHAAD GALLAGHER February 26, 2017 15:02
[2017-02-26 16:00] VITALS: BP 163/88
[2017-02-26] MEDS ORDERED: NS 275ml ONE (17:41)
[2017-02-26] MEDS: Miralax 17gm pkt ORAL PRN (17:54)
--- NOTE | 2017-02-26 18:29 | Podiatric Progress Note ---
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 Right hallux ulcer is improving in size and quality. Wound cultures grew group A strep and diptheroids. Currently on cefepime and metronidazole. Patient will require 6 weeks total of IV antibiotics. Infectious disease specialist is following and making recommendations regarding antibiotics. Continue daily dressing change on the right. Discontinue dressings on the left. Use modified post op shoe for ambulation Subjective Reason for consult Bilateral foot ulcers Allergies: Coded Allergies: PENICILLINS (Verified Allergy, Unknown, 02/10/17) Subjective Patient states he is doing well. No reports of pain, nausea, vomiting, fevers, or chills. Objective Exam Last 24 Hour Vital Signs Date Time Temp Pulse Resp B/P Pulse Ox O2 Delivery O2 Flow Rate FiO2 02/26/17 17:54 82 163/88 02/26/17 16:00 100.2 82 20 163/88 97 Room Air 02/26/17 12:00 98.1 70 20 167/95 97 Room Air 02/26/17 08:24 80 179/107 02/26/17 08:00 99.0 80 20 179/107 96 Room Air 02/26/17 03:55 98.1 78 17 156/99 95 Room Air 02/26/17 00:00 98.2 81 19 171/95 96 Room Air 02/25/17 20:00 99.1 74 18 132/83 97 Room Air Microbiology Date/Time Source Procedure Growth Status 02/11/17 16:15 Blood Blood Culture - Final NO GROWTH AFTER 5 DAYS Complete 02/11/17 19:00 Wound Gram Stain - Final Complete 02/11/17 19:00 Wound Culture - Final Streptococcus Pyogenes Grp A Diphtheroids Complete 02/11/17 19:00 Wound Aerobic Culture - Final Complete 02/11/17 19:00 Wound Anaerobic Culture - Final NO ANAEROBES ISOLATED Complete 02/10/17 03:45 Nasal Nares MRSA Culture - Final NO METHICILLIN RESISTANT STAPH AUREUS... Complete 02/10/17 03:45 Rectum VRE Culture - Final NO VANCOMYCIN RESISTANT ENTEROCOCCUS ... Complete Exam Narrative PHYSICAL EXAM: Left plantar hallux ulcer has healed. Right plantar hallux ulcer continues to improve in size and quality. No erythema, edema, or surrounding cellulitis IMAGING STUDIES: Impression: Acute osteomyelitis suspected with regard to the first distal phalange, second distal phalange, and proximal fifth phalange. Please correlate clinically. Generalized cellulitis of the foot. Bone marrow edema (T2 hyperintensity) within the third and fourth distal phalanges with normal T1 signal. This is less specific and findings may be due to reactive bone marrow edema. Faheem Rubin DPM February 26, 2017 18:29
[2017-02-26 20:00] VITALS: BP 154/84
[2017-02-27] VITALS: BP 139/72
[2017-02-27] MEDS: metroNIDAZOLE 500mg 100 ML IVPB SCH ×4 (03:50→22:41)
[2017-02-27 04:00] VITALS: BP 159/101
[2017-02-27 07:11] LABS: BASOPHILS % (AUTO) 1.1 % (0.0-2.0); EOSINOPHILS % (AUTO) 1.7 % (0.0-3.0); INR 1.5 (0.9-1.1); LYMPHOCYTES % (AUTO) 35.5 % (20.0-45.0); MEAN CORPUSCULAR HEMOGLOBIN 33.4 PG (27.0-31.0); MEAN CORPUSCULAR HGB CONC 32.9 G/DL (32.0-36.0); MEAN CORPUSCULAR VOLUME 101 FL (80-99); MEAN PLATELET VOLUME 10.2 FL (6.5-10.1); MONOCYTES % (AUTO) 11.4 % (1.0-10.0); NEUTROPHILS % (AUTO) 50.2 % (45.0-75.0); PLATELET COUNT 109 K/UL (150-450); PROTHROMBIN TIME 15.7 SEC (9.30-11.50); RED BLOOD COUNT 2.62 M/UL (4.70-6.10); WHITE BLOOD COUNT 5.4 K/UL (4.8-10.8)
[2017-02-27 07:40] VITALS: BP 165/87
[2017-02-27 07:59] LABS: ERYTHROCYTE SEDIMENTATION RATE 126 MM/HR (0-20)
[2017-02-27] MEDS: Cefepime HCl 2 GM in D5W 110 ML IV SCH ×2 (08:53→21:08)
[2017-02-27] MEDS: Ascorbic Acid 500mg tab ORAL SCH (08:54)
[2017-02-27] MEDS: Heparin 5000 units/ml inj SUBQ SCH ×2 (09:00→21:00)
[2017-02-27] MEDS: Dyna-Hex 2% Top Sol 8oz TOPIC SCH (09:00)
--- NOTE | 2017-02-27 10:06 | Infectious Diseases Prog Note ---
Assessment/Plan Assessment/Plan ASSESSMENT: 61-year-old male with: Bilateral lower extremity cellulitis, and osteomyelitis of the right foot - WCx GAS.pyogenes, diptheroids I&D was performed at bedside of bilateral hallux abscess 02/11 MRI : Acute osteomyelitis suspected with regard to the first distal phalange , second distal phalange, and proximal fifth phalange Polymicrobial ( CONS 2/4, Diptheroids 1/4 ) bacteremia, possible contaminant - repeat BCx 02/11 Neg Transaminitis Hep C Ab+, PCR >2million HIV neg Fever x1 - resolved Leukocytosis Renal Failure : Acute vs Chronic Cr lower HTN U tox +ve for cocaine and opiates Homeless PCN allergy - tolerating cefepime Full Code PLAN: Continue IV cefepime and Flagyl d# 18 / ( SP vancomycin d# 7 ) outpt HCV Rx eval Monitor liver function tests Monitor CBC and BMP wound care Subjective Constitutional: Reports: fever, Denies: anorexia, chills, drenching sweats, fatigue, no symptoms, other Allergies: Coded Allergies: PENICILLINS (Verified Allergy, Unknown, 02/10/17) Subjective low grade fever x 1 Objective Vital Signs Last 24 Hour Vital Signs Date Time Temp Pulse Resp B/P Pulse Ox O2 Delivery O2 Flow Rate FiO2 02/27/17 08:54 77 165/87 02/27/17 07:40 98.2 77 18 165/87 98 Room Air 02/27/17 04:00 98.2 98 20 159/101 98 Room Air 02/27/17 00:00 97.7 78 18 139/72 98 Room Air 02/26/17 20:00 97.3 80 20 154/84 98 Room Air 02/26/17 17:54 82 163/88 02/26/17 16:00 100.2 82 20 163/88 97 Room Air 02/26/17 12:00 98.1 70 20 167/95 97 Room Air Height (Feet): 6 Height (Inches): 3.00 Weight (Pounds): 245 HEENT: anicteric Respiratory/Chest: normal breath sounds Cardiovascular: regularly irregular Abdomen: non distended Laboratory Tests Test 02/26/17 16:00 02/27/17 05:15 Stool Occult Blood Negative (NEGATIVE) White Blood Count 5.4 K/UL (4.8-10.8) Red Blood Count 2.62 M/UL (4.70-6.10) L Hemoglobin 8.7 G/DL (14.2-18.0) L Hematocrit 26.6 % (42.0-52.0) L Mean Corpuscular Volume 101 FL (80-99) H Mean Corpuscular Hemoglobin 33.4 PG (27.0-31.0) H Mean Corpuscular Hemoglobin Concent 32.9 G/DL (32.0-36.0) Red Cell Distribution Width 13.0 % (11.6-14.8) Platelet Count 109 K/UL (150-450) L Mean Platelet Volume 10.2 FL (6.5-10.1) H Neutrophils (%) (Auto) 50.2 % (45.0-75.0) Lymphocytes (%) (Auto) 35.5 % (20.0-45.0) Monocytes (%) (Auto) 11.4 % (1.0-10.0) H Eosinophils (%) (Auto) 1.7 % (0.0-3.0) Basophils (%) (Auto) 1.1 % (0.0-2.0) Erythrocyte Sedimentation Rate 126 MM/HR (0-20) H Reticulocyte Count Pending Prothrombin Time 15.7 SEC (9.30-11.50) H Prothromb Time International Ratio 1.5 (0.9-1.1) H Activated Partial Thromboplast Time 41 SEC (23-33) H Iron Level 52 ug/dL (59-158) L Total Iron Binding Capacity 152 ug/dL (250-400) L Percent Iron Saturation 34 % (15-50) Unsaturated Iron Binding 100 ug/dL (112-346) L Lactate Dehydrogenase 272 U/L (135-230) H Carcinoembryonic Antigen 3.8 ng/mL H Vitamin B12 Level 359 pg/mL (211-946) Folate Pending Current Medications Medications (Trade) Dose Ordered Sig/Sharla Route PRN Reason Start Time Stop Time Status Last Admin Dose Admin Acetaminophen (Tylenol) 650 mg Q4H PRN ORAL T>100.5 02/11/17 19:30 03/13/17 19:29 Amlodipine Besylate (Norvasc) 5 mg BID ORAL 02/16/17 18:00 03/18/17 17:59 02/27/17 08:54 Ascorbic Acid 500 mg 500 mg DAILY ORAL 02/17/17 09:00 03/19/17 08:59 02/27/17 08:54 Bisacodyl (Dulcolax) 10 mg DAILYPRN PRN RECTAL Constipation 02/13/17 12:15 03/15/17 12:14 02/13/17 13:30 Cefepime HCl/ Dextrose (Maxipime/D5W) 110 ml @ 220 mls/hr Q12HR IV 02/19/17 21:00 03/03/17 20:59 02/27/17 08:53 Chlorhexidine Gluconate (Chastity-Hex 2%) 1 applic DAILY TOPIC 02/20/17 23:00 03/22/17 22:59 02/26/17 08:25 Clonidine HCl (Catapres) 0.1 mg Q4H PRN ORAL SBP > 160 02/11/17 19:30 03/13/17 19:29 02/25/17 04:44 Dextrose (Dextrose 50%) STAT PRN IV Hypoglycemia 02/11/17 19:30 03/13/17 19:29 Heparin Sodium (Porcine) (Heparin 5000 units/ml) 5,000 units EVERY 12 HOURS SUBQ 02/11/17 21:00 03/13/17 20:59 02/26/17 20:10 Metronidazole (Flagyl) 100 ml @ 100 mls/hr Q6H IVPB 02/11/17 22:00 03/02/17 21:59 02/27/17 03:50 Multivitamins (Multivitamins) 1 tab DAILY ORAL 02/17/17 09:00 03/19/17 08:59 02/27/17 08:54 Nitroglycerin (Ntg) 0.4 mg Q5M PRN SL Prn Chest Pain 02/11/17 19:15 03/13/17 19:14 Ondansetron HCl (Zofran) 4 mg Q6H PRN IVP Nausea & Vomiting 02/11/17 19:30 03/13/17 19:29 Polyethylene Glycol (Miralax) 17 gm DAILYPRN PRN ORAL Constipation 02/11/17 19:30 03/13/17 19:29 02/26/17 17:54 YODIT CASTAÑEDA M.D. February 27, 2017 10:06
[2017-02-27 10:34] LABS: RETICULOCYTE COUNT 2.9 % (0.0-2.0)
[2017-02-27 11:39] LABS: BAND NEUTROPHILS % (MANUAL) 0 % (0-8); BASOPHILS % (MANUAL) 0 % (0-2); EOSINOPHILS % (MANUAL) 1 % (0-3); LYMPHOCYTES % (MANUAL) 33 % (20-45); NEUTROPHILS % (MANUAL) 57 % (45-75); PLATELET ESTIMATE DECREASED; PLATELET MORPHOLOGY NORMAL; TOTAL CELLS COUNTED 100
[2017-02-27 11:44] LABS: HYPOCHROMASIA 1+; MACROCYTES 1+
[2017-02-27 11:46] LABS: PATH BLOOD SMEAR/OMC SENT TO PATHOLOGIST
[2017-02-27 11:57] VITALS: BP 154/87
--- NOTE | 2017-02-27 12:14 | General Progress Note ---
Assessment/Plan Status: stable Assessment/Plan status: Renal Failure : Acute vs Chronic Cr lower Sepsis Cellulitis : bilateral lower extremity cellulitis, athletic foot, and possible right foot osteomyelitis. Gangrene Urine positive for Cocaine Anemia Proteinuria , HypoAlbuminemia Plan: no new chem panel, stable from renal stand BP control- Monitor renal parameters Urine studies 2D echo : Left ventricular ejection fraction estimated to be 60 %. antibiotics and skin care ? DC planning? Placement issue. Subjective ROS Limited/Unobtainable: No Constitutional: Reports: malaise Allergies: Coded Allergies: PENICILLINS (Verified Allergy, Unknown, 02/10/17) Objective Last 24 Hour Vital Signs Date Time Temp Pulse Resp B/P Pulse Ox O2 Delivery O2 Flow Rate FiO2 02/27/17 11:57 98.1 78 20 154/87 98 Room Air 02/27/17 08:54 77 165/87 02/27/17 07:40 98.2 77 18 165/87 98 Room Air 02/27/17 04:00 98.2 98 20 159/101 98 Room Air 02/27/17 00:00 97.7 78 18 139/72 98 Room Air 02/26/17 20:00 97.3 80 20 154/84 98 Room Air 02/26/17 17:54 82 163/88 02/26/17 16:00 100.2 82 20 163/88 97 Room Air Intake and Output 02/26/17 02/27/17 19:00 07:00 Intake Total 630 ml 1150 ml Balance 630 ml 1150 ml Intake Oral 320 ml 840 ml IV Total 310 ml 310 ml # Voids 5 10 # Bowel Movements 1 2 Laboratory Tests 02/26/17 16:00: Stool Occult Blood Negative 02/27/17 05:15: White Blood Count 5.4, Red Blood Count 2.62L, Hemoglobin 8.7L, Hematocrit 26.6L , Mean Corpuscular Volume 101H, Mean Corpuscular Hemoglobin 33.4H, Mean Corpuscular Hemoglobin Concent 32.9, Red Cell Distribution Width 13.0, Platelet Count 109L, Mean Platelet Volume 10.2H, Neutrophils (%) (Auto) 50.2, Lymphocytes (%) (Auto) 35.5, Monocytes (%) (Auto) 11.4H, Eosinophils (%) (Auto) 1.7, Basophils (%) (Auto) 1.1, Differential Total Cells Counted 100, Neutrophils % (Manual) 57, Lymphocytes % (Manual) 33, Monocytes % (Manual) 9, Eosinophils % (Manual) 1, Basophils % (Manual) 0, Band Neutrophils 0, Platelet Estimate DecreasedL, Platelet Morphology Normal, Hypochromasia 1+, Macrocytosis 1+, Erythrocyte Sedimentation Rate 126H, Reticulocyte Count 2.9H, Prothrombin Time 15.7H, Prothromb Time International Ratio 1.5H, Activated Partial Thromboplast Time 41H, Iron Level 52L, Total Iron Binding Capacity 152L, Percent Iron Saturation 34, Unsaturated Iron Binding 100L, Lactate Dehydrogenase 272H, Carcinoembryonic Antigen 3.8H, Vitamin B12 Level 359, Folate [Pending] Height (Feet): 6 Height (Inches): 3.00 Weight (Pounds): 245 General Appearance: no apparent distress Objective PE no change MART MOREIRA February 27, 2017 12:14
[2017-02-27 16:07] VITALS: BP 164/85
[2017-02-27 20:00] VITALS: BP 147/94
--- NOTE | 2017-02-27 22:31 | Pulmonology Progress Note ---
Assessment/Plan Problems: (1) Sepsis (2) Gangrene (3) Homelessness (4) Drug abuse Assessment/Plan iv abx check labs periodically no new events all notes reviewed dc planning in process difficult placement anemia w/u ordered Subjective Allergies: Coded Allergies: PENICILLINS (Verified Allergy, Unknown, 02/10/17) Objective Last 24 Hour Vital Signs Date Time Temp Pulse Resp B/P Pulse Ox O2 Delivery O2 Flow Rate FiO2 02/27/17 20:00 98.6 76 20 147/94 97 Room Air 02/27/17 18:08 74 151/83 02/27/17 16:14 164/85 02/27/17 16:07 97.9 81 20 164/85 98 Nasal Cannula 2.0 02/27/17 11:57 98.1 78 20 154/87 98 Room Air 02/27/17 08:54 77 165/87 02/27/17 07:40 98.2 77 18 165/87 98 Room Air 02/27/17 04:00 98.2 98 20 159/101 98 Room Air 02/27/17 00:00 97.7 78 18 139/72 98 Room Air Intake and Output 02/26/17 02/27/17 19:00 07:00 Intake Total 630 ml 1150 ml Balance 630 ml 1150 ml Intake Oral 320 ml 840 ml IV Total 310 ml 310 ml # Voids 5 10 # Bowel Movements 1 2 Objective General Appearance: WD/WN HEENT: normocephalic Respiratory/Chest: chest wall non-tender, lungs clear Cardiovascular: normal peripheral pulses, regular rhythm Abdomen: normal bowel sounds, soft, non tender Genitourinary: normal external genitalia Extremities: no cyanosis, clean dressing on feet Laboratory Tests 02/27/17 05:15: White Blood Count 5.4, Red Blood Count 2.62L, Hemoglobin 8.7L, Hematocrit 26.6L , Mean Corpuscular Volume 101H, Mean Corpuscular Hemoglobin 33.4H, Mean Corpuscular Hemoglobin Concent 32.9, Red Cell Distribution Width 13.0, Platelet Count 109L, Mean Platelet Volume 10.2H, Neutrophils (%) (Auto) 50.2, Lymphocytes (%) (Auto) 35.5, Monocytes (%) (Auto) 11.4H, Eosinophils (%) (Auto) 1.7, Basophils (%) (Auto) 1.1, Differential Total Cells Counted 100, Neutrophils % (Manual) 57, Lymphocytes % (Manual) 33, Monocytes % (Manual) 9, Eosinophils % (Manual) 1, Basophils % (Manual) 0, Band Neutrophils 0, Platelet Estimate DecreasedL, Platelet Morphology Normal, Hypochromasia 1+, Macrocytosis 1+, Erythrocyte Sedimentation Rate 126H, Reticulocyte Count 2.9H, Prothrombin Time 15.7H, Prothromb Time International Ratio 1.5H, Activated Partial Thromboplast Time 41H, Iron Level 52L, Total Iron Binding Capacity 152L, Percent Iron Saturation 34, Unsaturated Iron Binding 100L, Lactate Dehydrogenase 272H, Carcinoembryonic Antigen 3.8H, Vitamin B12 Level 359, Folate [Pending] Current Medications Medications (Trade) Dose Ordered Sig/Sharla Route PRN Reason Start Time Stop Time Status Last Admin Dose Admin Acetaminophen (Tylenol) 650 mg Q4H PRN ORAL T>100.5 02/11/17 19:30 03/13/17 19:29 Amlodipine Besylate (Norvasc) 5 mg BID ORAL 02/16/17 18:00 03/18/17 17:59 02/27/17 18:08 Ascorbic Acid 500 mg 500 mg DAILY ORAL 02/17/17 09:00 03/19/17 08:59 02/27/17 08:54 Bisacodyl (Dulcolax) 10 mg DAILYPRN PRN RECTAL Constipation 02/13/17 12:15 03/15/17 12:14 02/13/17 13:30 Cefepime HCl/ Dextrose (Maxipime/D5W) 110 ml @ 220 mls/hr Q12HR IV 02/19/17 21:00 03/03/17 20:59 02/27/17 21:08 Chlorhexidine Gluconate (Chastity-Hex 2%) 1 applic DAILY TOPIC 02/20/17 23:00 03/22/17 22:59 02/26/17 08:25 Clonidine HCl (Catapres) 0.1 mg Q4H PRN ORAL SBP > 160 02/11/17 19:30 03/13/17 19:29 02/27/17 16:14 Dextrose (Dextrose 50%) STAT PRN IV Hypoglycemia 02/11/17 19:30 03/13/17 19:29 Heparin Sodium (Porcine) (Heparin 5000 units/ml) 5,000 units EVERY 12 HOURS SUBQ 02/11/17 21:00 03/13/17 20:59 02/26/17 20:10 Metronidazole (Flagyl) 100 ml @ 100 mls/hr Q6H IVPB 02/11/17 22:00 03/02/17 21:59 02/27/17 16:33 Multivitamins (Multivitamins) 1 tab DAILY ORAL 02/17/17 09:00 03/19/17 08:59 02/27/17 08:54 Nitroglycerin (Ntg) 0.4 mg Q5M PRN SL Prn Chest Pain 02/11/17 19:15 03/13/17 19:14 Ondansetron HCl (Zofran) 4 mg Q6H PRN IVP Nausea & Vomiting 02/11/17 19:30 03/13/17 19:29 Polyethylene Glycol (Miralax) 17 gm DAILYPRN PRN ORAL Constipation 02/11/17 19:30 03/13/17 19:29 02/26/17 17:54 RASHAAD GALLAGHER February 27, 2017 22:31
[2017-02-28] VITALS (7 sets, daily range): BP systolic 148–175; BP diastolic 80–104
[2017-02-28] MEDS: metroNIDAZOLE 500mg 100 ML IVPB SCH ×4 (03:38→21:54)
[2017-02-28 07:43] LABS: ALANINE AMINOTRANSFERASE 18 U/L (3-41); ALBUMIN/GLOBULIN RATIO 0.2 (1.0-2.7); ANION GAP 11 (5-15); ASPARTATE AMINO TRANSFERASE 63 U/L (5-40); CALCIUM 8.7 mg/dL (8.6-10.2); CARBON DIOXIDE 26 mEQ/L (20-30); CHLORIDE 96 mEQ/L (98-107); CREATININE 0.9 mg/dL (0.7-1.2); CRP QUANT 0.6 mg/dL (< 0.5); GLOMERULAR FILTRATION RATE > 60 mL/min (>60); HEMOLYSIS 0; MAGNESIUM 1.5 mg/dL (1.7-2.5); PHOSPHORUS 3.3 mg/dL (2.5-4.8); POTASSIUM 4.3 mEQ/L (3.4-4.9); SODIUM 133 mEQ/L (135-145); TOTAL PROTEIN 9.8 g/dL (6.6-8.7); URIC ACID 3.1 mg/dL (3.0-7.5)
[2017-02-28 08:02] LABS: BILIRUBIN,DIRECT 0.4 mg/dL (0.1-0.3)
[2017-02-28] MEDS: Cefepime HCl 2 GM in D5W 110 ML IV SCH ×2 (08:48→20:50)
[2017-02-28] MEDS: Dyna-Hex 2% Top Sol 8oz TOPIC SCH (08:48)
[2017-02-28] MEDS: Heparin 5000 units/ml inj SUBQ SCH ×2 (08:49→20:52)
[2017-02-28] MEDS: Ascorbic Acid 500mg tab ORAL SCH (08:49)
--- NOTE | 2017-02-28 10:47 | General Progress Note ---
Assessment/Plan Status: stable Assessment/Plan status: Renal Failure : Acute vs Chronic Cr lower Sepsis Cellulitis : bilateral lower extremity cellulitis, athletic foot, and possible right foot osteomyelitis. Gangrene Urine positive for Cocaine Anemia Proteinuria , HypoAlbuminemia Plan: stable from renal stand BP control- Monitor renal parameters Urine studies 2D echo : Left ventricular ejection fraction estimated to be 60 %. antibiotics and skin care ? DC planning? Placement issue. Subjective ROS Limited/Unobtainable: No Constitutional: Reports: weakness Allergies: Coded Allergies: PENICILLINS (Verified Allergy, Unknown, 02/10/17) Objective Last 24 Hour Vital Signs Date Time Temp Pulse Resp B/P Pulse Ox O2 Delivery O2 Flow Rate FiO2 02/28/17 08:49 76 165/96 02/28/17 08:28 98.4 76 14 165/96 97 Room Air 02/28/17 04:00 97.7 74 20 149/92 100 Room Air 02/28/17 00:00 98.2 78 20 148/104 94 Room Air 02/27/17 20:00 98.6 76 20 147/94 97 Room Air 02/27/17 18:08 74 151/83 02/27/17 16:14 164/85 02/27/17 16:07 97.9 81 20 164/85 98 Nasal Cannula 2.0 02/27/17 11:57 98.1 78 20 154/87 98 Room Air Intake and Output 02/27/17 02/28/17 19:00 07:00 Intake Total 950 ml 310 ml Output Total 1200 ml Balance -250 ml 310 ml Intake Oral 950 ml IV Total 310 ml Output Urine Total 1200 ml # Voids 3 3 # Bowel Movements 1 Laboratory Tests 02/28/17 06:20: Sodium Level 133L, Potassium Level 4.3, Chloride Level 96L, Carbon Dioxide Level 26, Anion Gap 11, Blood Urea Nitrogen 18, Creatinine 0.9, Estimat Glomerular Filtration Rate > 60, Glucose Level 73L, Uric Acid 3.1, Calcium Level 8.7, Phosphorus Level 3.3, Magnesium Level 1.5L, Total Bilirubin 1.1, Direct Bilirubin 0.4H, Aspartate Amino Transf (AST/SGOT) 63H, Alanine Aminotransferase (ALT/SGPT) 18, Alkaline Phosphatase 92, C-Reactive Protein, Quantitative 0.6H, Pro-B-Type Natriuretic Peptide 1077H, Total Protein 9.8H, Albumin 2.1L, Globulin 7.7, Albumin/Globulin Ratio 0.2L Height (Feet): 6 Height (Inches): 3.00 Weight (Pounds): 245 General Appearance: no apparent distress Objective PE no change MART MOREIRA February 28, 2017 10:47
--- NOTE | 2017-02-28 11:59 | Pulmonology Progress Note ---
Assessment/Plan Problems: (1) Sepsis (2) Gangrene (3) Homelessness (4) Drug abuse Assessment/Plan iv abx check labs periodically no new events all notes reviewed dc planning in process difficult placement Subjective ROS Limited/Unobtainable: No Constitutional: Reports: no symptoms HEENT: Repors: no symptoms Respiratory: Reports: no symptoms Allergies: Coded Allergies: PENICILLINS (Verified Allergy, Unknown, 02/10/17) Objective Last 24 Hour Vital Signs Date Time Temp Pulse Resp B/P Pulse Ox O2 Delivery O2 Flow Rate FiO2 02/28/17 08:49 76 165/96 02/28/17 08:28 98.4 76 14 165/96 97 Room Air 02/28/17 04:00 97.7 74 20 149/92 100 Room Air 02/28/17 00:00 98.2 78 20 148/104 94 Room Air 02/27/17 20:00 98.6 76 20 147/94 97 Room Air 02/27/17 18:08 74 151/83 02/27/17 16:14 164/85 02/27/17 16:07 97.9 81 20 164/85 98 Nasal Cannula 2.0 Intake and Output 02/27/17 02/28/17 19:00 07:00 Intake Total 950 ml 310 ml Output Total 1200 ml Balance -250 ml 310 ml Intake Oral 950 ml IV Total 310 ml Output Urine Total 1200 ml # Voids 3 3 # Bowel Movements 1 Objective General Appearance: WD/WN HEENT: normocephalic Respiratory/Chest: chest wall non-tender, lungs clear Cardiovascular: normal peripheral pulses, regular rhythm Abdomen: normal bowel sounds, soft, non tender Genitourinary: normal external genitalia Extremities: no cyanosis, clean dressing on feet Laboratory Tests 02/28/17 06:20: Sodium Level 133L, Potassium Level 4.3, Chloride Level 96L, Carbon Dioxide Level 26, Anion Gap 11, Blood Urea Nitrogen 18, Creatinine 0.9, Estimat Glomerular Filtration Rate > 60, Glucose Level 73L, Uric Acid 3.1, Calcium Level 8.7, Phosphorus Level 3.3, Magnesium Level 1.5L, Total Bilirubin 1.1, Direct Bilirubin 0.4H, Aspartate Amino Transf (AST/SGOT) 63H, Alanine Aminotransferase (ALT/SGPT) 18, Alkaline Phosphatase 92, C-Reactive Protein, Quantitative 0.6H, Pro-B-Type Natriuretic Peptide 1077H, Total Protein 9.8H, Albumin 2.1L, Globulin 7.7, Albumin/Globulin Ratio 0.2L Current Medications Medications (Trade) Dose Ordered Sig/Sharla Route PRN Reason Start Time Stop Time Status Last Admin Dose Admin Acetaminophen (Tylenol) 650 mg Q4H PRN ORAL T>100.5 02/11/17 19:30 03/13/17 19:29 Amlodipine Besylate (Norvasc) 5 mg BID ORAL 02/16/17 18:00 03/18/17 17:59 02/28/17 08:49 Ascorbic Acid 500 mg 500 mg DAILY ORAL 02/17/17 09:00 03/19/17 08:59 02/28/17 08:49 Bisacodyl (Dulcolax) 10 mg DAILYPRN PRN RECTAL Constipation 02/13/17 12:15 03/15/17 12:14 02/13/17 13:30 Cefepime HCl/ Dextrose (Maxipime/D5W) 110 ml @ 220 mls/hr Q12HR IV 02/19/17 21:00 03/03/17 20:59 02/28/17 08:48 Chlorhexidine Gluconate 1 applic 1 applic DAILY TOPIC 02/20/17 23:00 03/22/17 22:59 02/28/17 08:48 Clonidine HCl (Catapres) 0.1 mg Q4H PRN ORAL SBP > 160 02/11/17 19:30 03/13/17 19:29 02/27/17 16:14 Dextrose (Dextrose 50%) STAT PRN IV Hypoglycemia 02/11/17 19:30 03/13/17 19:29 Heparin Sodium (Porcine) (Heparin 5000 units/ml) 5,000 units EVERY 12 HOURS SUBQ 02/11/17 21:00 03/13/17 20:59 02/28/17 08:49 Magnesium Sulfate (Magnesium Sulfate 1gm/100ml) 100 ml @ 100 mls/hr Q1H IVPB 02/28/17 11:00 02/28/17 12:59 02/28/17 11:30 Metronidazole (Flagyl) 100 ml @ 100 mls/hr Q6H IVPB 02/11/17 22:00 03/02/17 21:59 02/28/17 10:09 Multivitamins (Multivitamins) 1 tab DAILY ORAL 02/17/17 09:00 03/19/17 08:59 02/28/17 08:49 Nitroglycerin (Ntg) 0.4 mg Q5M PRN SL Prn Chest Pain 02/11/17 19:15 03/13/17 19:14 Ondansetron HCl (Zofran) 4 mg Q6H PRN IVP Nausea & Vomiting 02/11/17 19:30 03/13/17 19:29 Polyethylene Glycol (Miralax) 17 gm DAILYPRN PRN ORAL Constipation 02/11/17 19:30 03/13/17 19:29 02/26/17 17:54 RASHAAD GALLAGHER February 28, 2017 11:59
--- NOTE | 2017-02-28 17:44 | Infectious Diseases Prog Note ---
Assessment/Plan Assessment/Plan ASSESSMENT: 61-year-old male with: Bilateral lower extremity cellulitis, and osteomyelitis of the right foot - WCx GAS.pyogenes, diptheroids I&D was performed at bedside of bilateral hallux abscess 02/11 MRI : Acute osteomyelitis suspected with regard to the first distal phalange , second distal phalange, and proximal fifth phalange Polymicrobial ( CONS 2/4, Diptheroids 1/4 ) bacteremia, possible contaminant - repeat BCx 02/11 Neg Transaminitis Hep C Ab+, PCR >2million HIV neg Fever x1 - resolved Leukocytosis Renal Failure : Acute , SP HTN U tox +ve for cocaine and opiates Homeless PCN allergy - tolerating cefepime Full Code PLAN: Continue IV cefepime and Flagyl d# 19 / ( SP vancomycin d# 7 ) outpt HCV Rx eval Monitor liver function tests Monitor CBC and BMP wound care Subjective Allergies: Coded Allergies: PENICILLINS (Verified Allergy, Unknown, 02/10/17) Subjective comfortable Objective Vital Signs Last 24 Hour Vital Signs Date Time Temp Pulse Resp B/P Pulse Ox O2 Delivery O2 Flow Rate FiO2 02/28/17 17:25 70 155/80 02/28/17 17:01 70 155/80 02/28/17 16:14 98.2 78 16 175/83 98 Room Air 02/28/17 12:20 99.0 72 15 151/87 97 Room Air 02/28/17 08:49 76 165/96 02/28/17 08:28 98.4 76 14 165/96 97 Room Air 02/28/17 04:00 97.7 74 20 149/92 100 Room Air 02/28/17 00:00 98.2 78 20 148/104 94 Room Air 02/27/17 20:00 98.6 76 20 147/94 97 Room Air 02/27/17 18:08 74 151/83 Height (Feet): 6 Height (Inches): 3.00 Weight (Pounds): 245 HEENT: mucous membranes moist Respiratory/Chest: no accessory muscle use Cardiovascular: regularly irregular Abdomen: non distended Skin: no lesions Laboratory Tests Test 02/28/17 06:20 Sodium Level 133 mEQ/L (135-145) L Potassium Level 4.3 mEQ/L (3.4-4.9) Chloride Level 96 mEQ/L (98-107) L Carbon Dioxide Level 26 mEQ/L (20-30) Anion Gap 11 (5-15) Blood Urea Nitrogen 18 mg/dL (7-23) Creatinine 0.9 mg/dL (0.7-1.2) Estimat Glomerular Filtration Rate > 60 mL/min (>60) Glucose Level 73 mg/dL (74-106) L Uric Acid 3.1 mg/dL (3.0-7.5) Calcium Level 8.7 mg/dL (8.6-10.2) Phosphorus Level 3.3 mg/dL (2.5-4.8) Magnesium Level 1.5 mg/dL (1.7-2.5) L Total Bilirubin 1.1 mg/dL (0.0-1.2) Direct Bilirubin 0.4 mg/dL (0.1-0.3) H Aspartate Amino Transf (AST/SGOT) 63 U/L (5-40) H Alanine Aminotransferase (ALT/SGPT) 18 U/L (3-41) Alkaline Phosphatase 92 U/L (40-129) C-Reactive Protein, Quantitative 0.6 mg/dL (< 0.5) H Pro-B-Type Natriuretic Peptide 1077 pg/mL (0-125) H Total Protein 9.8 g/dL (6.6-8.7) H Albumin 2.1 g/dL (3.5-5.2) L Globulin 7.7 g/dL Albumin/Globulin Ratio 0.2 (1.0-2.7) L Current Medications Medications (Trade) Dose Ordered Sig/Sharla Route PRN Reason Start Time Stop Time Status Last Admin Dose Admin Acetaminophen (Tylenol) 650 mg Q4H PRN ORAL T>100.5 02/11/17 19:30 03/13/17 19:29 Amlodipine Besylate (Norvasc) 5 mg BID ORAL 02/16/17 18:00 03/18/17 17:59 02/28/17 17:25 Ascorbic Acid 500 mg 500 mg DAILY ORAL 02/17/17 09:00 03/19/17 08:59 02/28/17 08:49 Bisacodyl (Dulcolax) 10 mg DAILYPRN PRN RECTAL Constipation 02/13/17 12:15 03/15/17 12:14 02/13/17 13:30 Cefepime HCl/ Dextrose (Maxipime/D5W) 110 ml @ 220 mls/hr Q12HR IV 02/19/17 21:00 03/03/17 20:59 02/28/17 08:48 Chlorhexidine Gluconate (Chastity-Hex 2%) 1 applic DAILY TOPIC 02/20/17 23:00 03/22/17 22:59 02/28/17 08:48 Clonidine HCl (Catapres) 0.1 mg Q4H PRN ORAL SBP > 160 02/11/17 19:30 03/13/17 19:29 02/27/17 16:14 Dextrose (Dextrose 50%) STAT PRN IV Hypoglycemia 02/11/17 19:30 03/13/17 19:29 Folic Acid (Folate) 1 mg DAILY ORAL 03/01/17 09:00 03/31/17 08:59 Heparin Sodium (Porcine) (Heparin 5000 units/ml) 5,000 units EVERY 12 HOURS SUBQ 02/11/17 21:00 03/13/17 20:59 02/28/17 08:49 Metronidazole (Flagyl) 100 ml @ 100 mls/hr Q6H IVPB 02/11/17 22:00 03/02/17 21:59 02/28/17 16:10 Multivitamins (Multivitamins) 1 tab DAILY ORAL 02/17/17 09:00 03/19/17 08:59 02/28/17 08:49 Nitroglycerin (Ntg) 0.4 mg Q5M PRN SL Prn Chest Pain 02/11/17 19:15 03/13/17 19:14 Ondansetron HCl (Zofran) 4 mg Q6H PRN IVP Nausea & Vomiting 02/11/17 19:30 03/13/17 19:29 Polyethylene Glycol (Miralax) 17 gm DAILYPRN PRN ORAL Constipation 02/11/17 19:30 03/13/17 19:29 02/26/17 17:54 Thiamine HCl (Vitamin B1) 100 mg DAILY ORAL 03/01/17 09:00 03/31/17 08:59 YODIT CASTAÑEDA M.D. February 28, 2017 17:44
[2017-03-01] VITALS (7 sets, daily range): BP systolic 135–171; BP diastolic 72–98
[2017-03-01] MEDS: metroNIDAZOLE 500mg 100 ML IVPB SCH ×4 (03:12→21:07)
[2017-03-01] MEDS: Heparin 5000 units/ml inj SUBQ SCH ×2 (09:00→21:08)
[2017-03-01] MEDS ORDERED: Tubing IV Secondary IV ONE (09:06)
[2017-03-01] MEDS: Dyna-Hex 2% Top Sol 8oz TOPIC SCH (09:27)
[2017-03-01] MEDS: Ascorbic Acid 500mg tab ORAL SCH (09:28)
[2017-03-01] MEDS: Thiamine 100mg tab ORAL SCH (09:28)
[2017-03-01] MEDS: Cefepime HCl 2 GM in D5W 110 ML IV SCH ×2 (09:29→20:11)
--- NOTE | 2017-03-01 10:47 | Infectious Diseases Prog Note ---
Assessment/Plan Assessment/Plan A; sepsis BLE cellulitis acute OM R foot bilateral hallux abscess s/p I&D and debridement 02/11 peripheral neuropathy HPN onychomycosis ARF anemia cocaine abuse homeless Hepatitis C P; Continue Cefepime Subjective ROS Limited/Unobtainable: Yes Allergies: Coded Allergies: PENICILLINS (Verified Allergy, Unknown, 02/10/17) Objective Vital Signs Last 24 Hour Vital Signs Date Time Temp Pulse Resp B/P Pulse Ox O2 Delivery O2 Flow Rate FiO2 03/01/17 09:28 78 155/80 03/01/17 08:15 97.9 80 21 171/98 97 Room Air 03/01/17 04:00 98.2 84 20 150/89 96 Room Air 03/01/17 00:00 99.0 77 20 153/85 96 Room Air 02/28/17 20:00 98.2 76 20 158/94 97 Room Air 02/28/17 17:25 70 155/80 02/28/17 17:01 70 155/80 02/28/17 16:14 98.2 78 16 175/83 98 Room Air 02/28/17 12:20 99.0 72 15 151/87 97 Room Air Height (Feet): 6 Height (Inches): 3.00 Weight (Pounds): 245 General Appearance: no acute distress HEENT: mucous membranes moist Respiratory/Chest: lungs clear Cardiovascular: normal rate Abdomen: soft, non tender Extremities: other - left arm PICC line Neurologic/Psychiatric: other - sleeping Current Medications Medications (Trade) Dose Ordered Sig/Sharla Route PRN Reason Start Time Stop Time Status Last Admin Dose Admin Acetaminophen (Tylenol) 650 mg Q4H PRN ORAL T>100.5 02/11/17 19:30 03/13/17 19:29 Amlodipine Besylate (Norvasc) 5 mg BID ORAL 02/16/17 18:00 03/18/17 17:59 03/01/17 09:28 Ascorbic Acid 500 mg 500 mg DAILY ORAL 02/17/17 09:00 03/19/17 08:59 03/01/17 09:28 Bisacodyl (Dulcolax) 10 mg DAILYPRN PRN RECTAL Constipation 02/13/17 12:15 03/15/17 12:14 02/13/17 13:30 Cefepime HCl/ Dextrose (Maxipime/D5W) 110 ml @ 220 mls/hr Q12HR IV 02/19/17 21:00 03/03/17 20:59 03/01/17 09:29 Chlorhexidine Gluconate (Chastity-Hex 2%) 1 applic DAILY TOPIC 02/20/17 23:00 03/22/17 22:59 03/01/17 09:27 Clonidine HCl (Catapres) 0.1 mg Q4H PRN ORAL SBP > 160 02/11/17 19:30 03/13/17 19:29 02/27/17 16:14 Dextrose (Dextrose 50%) STAT PRN IV Hypoglycemia 02/11/17 19:30 03/13/17 19:29 Folic Acid (Folate) 1 mg DAILY ORAL 03/01/17 09:00 03/31/17 08:59 03/01/17 09:28 Heparin Sodium (Porcine) (Heparin 5000 units/ml) 5,000 units EVERY 12 HOURS SUBQ 02/11/17 21:00 03/13/17 20:59 02/28/17 20:52 Metronidazole (Flagyl) 100 ml @ 100 mls/hr Q6H IVPB 02/11/17 22:00 03/02/17 21:59 03/01/17 10:23 Multivitamins (Multivitamins) 1 tab DAILY ORAL 02/17/17 09:00 03/19/17 08:59 03/01/17 09:27 Nitroglycerin (Ntg) 0.4 mg Q5M PRN SL Prn Chest Pain 02/11/17 19:15 03/13/17 19:14 Ondansetron HCl (Zofran) 4 mg Q6H PRN IVP Nausea & Vomiting 02/11/17 19:30 03/13/17 19:29 Polyethylene Glycol (Miralax) 17 gm DAILYPRN PRN ORAL Constipation 02/11/17 19:30 03/13/17 19:29 02/26/17 17:54 Thiamine HCl (Vitamin B1) 100 mg DAILY ORAL 03/01/17 09:00 03/31/17 08:59 03/01/17 09:28 AROLDO KOHLI March 01, 2017 10:47
--- NOTE | 2017-03-01 14:15 | General Progress Note ---
Assessment/Plan Status: unchanged Assessment/Plan status: Renal Failure : Acute vs Chronic Cr lower Sepsis Cellulitis : bilateral lower extremity cellulitis, athletic foot, and possible right foot osteomyelitis. Gangrene Urine positive for Cocaine Anemia Proteinuria , HypoAlbuminemia Plan: Stable from renal stand BP control- Monitor renal parameters Urine studies 2D echo : Left ventricular ejection fraction estimated to be 60 %. antibiotics and skin care ? DC planning? Placement issue. Subjective ROS Limited/Unobtainable: No Constitutional: Reports: malaise, weakness Allergies: Coded Allergies: PENICILLINS (Verified Allergy, Unknown, 02/10/17) Objective Last 24 Hour Vital Signs Date Time Temp Pulse Resp B/P Pulse Ox O2 Delivery O2 Flow Rate FiO2 03/01/17 12:15 97.7 73 23 162/92 99 Room Air 03/01/17 09:28 78 155/80 03/01/17 08:15 97.9 80 21 171/98 97 Room Air 03/01/17 04:00 98.2 84 20 150/89 96 Room Air 03/01/17 00:00 99.0 77 20 153/85 96 Room Air 02/28/17 20:00 98.2 76 20 158/94 97 Room Air 02/28/17 17:25 70 155/80 02/28/17 17:01 70 155/80 02/28/17 16:14 98.2 78 16 175/83 98 Room Air Intake and Output 02/28/17 03/01/17 19:00 07:00 Intake Total 1600 ml 310 ml Output Total 1400 ml 900 ml Balance 200 ml -590 ml Intake Oral 1600 ml IV Total 310 ml Output Urine Total 1400 ml 900 ml # Bowel Movements 1 Height (Feet): 6 Height (Inches): 3.00 Weight (Pounds): 245 General Appearance: no apparent distress Cardiovascular: regular rhythm Respiratory/Chest: decreased breath sounds Abdomen: soft Objective PE no change MART MOREIRA March 01, 2017 14:15
--- NOTE | 2017-03-01 17:58 | Pulmonology Progress Note ---
Assessment/Plan Problems: (1) Sepsis (2) Gangrene (3) Homelessness (4) Drug abuse Assessment/Plan iv abx check labs periodically no new events all notes reviewed dc planning in process difficult placement Subjective ROS Limited/Unobtainable: No Constitutional: Reports: no symptoms HEENT: Repors: no symptoms Allergies: Coded Allergies: PENICILLINS (Verified Allergy, Unknown, 02/10/17) Objective Last 24 Hour Vital Signs Date Time Temp Pulse Resp B/P Pulse Ox O2 Delivery O2 Flow Rate FiO2 03/01/17 17:43 72 135/72 03/01/17 16:04 98.9 72 23 135/72 97 Room Air 03/01/17 14:39 74 153/84 03/01/17 12:15 97.7 73 23 162/92 99 Room Air 03/01/17 09:28 78 155/80 03/01/17 08:15 97.9 80 21 171/98 97 Room Air 03/01/17 04:00 98.2 84 20 150/89 96 Room Air 03/01/17 00:00 99.0 77 20 153/85 96 Room Air 02/28/17 20:00 98.2 76 20 158/94 97 Room Air Intake and Output 02/28/17 03/01/17 19:00 07:00 Intake Total 1600 ml 310 ml Output Total 1400 ml 900 ml Balance 200 ml -590 ml Intake Oral 1600 ml IV Total 310 ml Output Urine Total 1400 ml 900 ml # Bowel Movements 1 Objective General Appearance: WD/WN HEENT: normocephalic Respiratory/Chest: chest wall non-tender, lungs clear Cardiovascular: normal peripheral pulses, regular rhythm Abdomen: normal bowel sounds, soft, non tender Genitourinary: normal external genitalia Extremities: no cyanosis, clean dressing on feet Current Medications Medications (Trade) Dose Ordered Sig/Sharla Route PRN Reason Start Time Stop Time Status Last Admin Dose Admin Acetaminophen (Tylenol) 650 mg Q4H PRN ORAL T>100.5 02/11/17 19:30 03/13/17 19:29 Amlodipine Besylate (Norvasc) 5 mg BID ORAL 02/16/17 18:00 03/18/17 17:59 03/01/17 17:43 Ascorbic Acid 500 mg 500 mg DAILY ORAL 02/17/17 09:00 03/19/17 08:59 03/01/17 09:28 Bisacodyl (Dulcolax) 10 mg DAILYPRN PRN RECTAL Constipation 02/13/17 12:15 03/15/17 12:14 02/13/17 13:30 Cefepime HCl/ Dextrose (Maxipime/D5W) 110 ml @ 220 mls/hr Q12HR IV 02/19/17 21:00 03/03/17 20:59 03/01/17 09:29 Chlorhexidine Gluconate (Chastity-Hex 2%) 1 applic DAILY TOPIC 02/20/17 23:00 03/22/17 22:59 03/01/17 09:27 Clonidine HCl (Catapres) 0.1 mg Q4H PRN ORAL SBP > 160 02/11/17 19:30 03/13/17 19:29 02/27/17 16:14 Dextrose (Dextrose 50%) STAT PRN IV Hypoglycemia 02/11/17 19:30 03/13/17 19:29 Folic Acid (Folate) 1 mg DAILY ORAL 03/01/17 09:00 03/31/17 08:59 03/01/17 09:28 Heparin Sodium (Porcine) (Heparin 5000 units/ml) 5,000 units EVERY 12 HOURS SUBQ 02/11/17 21:00 03/13/17 20:59 02/28/17 20:52 Metronidazole (Flagyl) 100 ml @ 100 mls/hr Q6H IVPB 02/11/17 22:00 03/02/17 21:59 03/01/17 16:18 Multivitamins (Multivitamins) 1 tab DAILY ORAL 02/17/17 09:00 03/19/17 08:59 03/01/17 09:27 Nitroglycerin (Ntg) 0.4 mg Q5M PRN SL Prn Chest Pain 02/11/17 19:15 03/13/17 19:14 Ondansetron HCl (Zofran) 4 mg Q6H PRN IVP Nausea & Vomiting 02/11/17 19:30 03/13/17 19:29 Polyethylene Glycol (Miralax) 17 gm DAILYPRN PRN ORAL Constipation 02/11/17 19:30 03/13/17 19:29 02/26/17 17:54 Thiamine HCl (Vitamin B1) 100 mg DAILY ORAL 03/01/17 09:00 03/31/17 08:59 03/01/17 09:28 RASHAAD GALLAGHER March 01, 2017 17:58
[2017-03-02] VITALS: BP 170/89
[2017-03-02] MEDS: metroNIDAZOLE 500mg 100 ML IVPB SCH ×4 (03:32→22:04)
[2017-03-02 04:00] VITALS: BP 163/96
[2017-03-02 08:15] VITALS: BP 162/110
[2017-03-02] MEDS: Cefepime HCl 2 GM in D5W 110 ML IV SCH ×2 (09:27→20:16)
[2017-03-02] MEDS: Thiamine 100mg tab ORAL SCH (09:28)
[2017-03-02] MEDS: Ascorbic Acid 500mg tab ORAL SCH (09:29)
[2017-03-02] MEDS: Dyna-Hex 2% Top Sol 8oz TOPIC SCH (09:30)
[2017-03-02] MEDS: Heparin 5000 units/ml inj SUBQ SCH ×2 (09:30→20:20)
--- NOTE | 2017-03-02 12:23 | Infectious Diseases Prog Note ---
Assessment/Plan Assessment/Plan ASSESSMENT: 61-year-old male with: Bilateral lower extremity cellulitis, and osteomyelitis of the right foot - WCx GAS.pyogenes, diptheroids I&D was performed at bedside of bilateral hallux abscess 02/11 MRI : Acute osteomyelitis suspected with regard to the first distal phalange , second distal phalange, and proximal fifth phalange Polymicrobial ( CONS 2/4, Diptheroids 1/4 ) bacteremia, possible contaminant - repeat BCx 02/11 Neg Transaminitis Hep C Ab+, PCR >2million HIV neg Fever x1 - resolved Leukocytosis Renal Failure : Acute , SP HTN U tox +ve for cocaine and opiates Homeless PCN allergy - tolerating cefepime Full Code PLAN: Continue IV cefepime and Flagyl d# 21 / ( SP vancomycin d# 7 ) outpt HCV Rx eval Monitor liver function tests Monitor CBC and BMP wound care Subjective Constitutional: Denies: anorexia, chills, drenching sweats, fatigue, fever, no symptoms, other Allergies: Coded Allergies: PENICILLINS (Verified Allergy, Unknown, 02/10/17) Subjective comfortable Objective Vital Signs Last 24 Hour Vital Signs Date Time Temp Pulse Resp B/P Pulse Ox O2 Delivery O2 Flow Rate FiO2 03/02/17 09:29 84 162/110 03/02/17 09:29 162/110 03/02/17 08:15 97.6 84 21 162/110 97 Room Air 03/02/17 04:00 98.1 77 20 163/96 95 Room Air 03/02/17 00:00 98.2 84 20 170/89 95 Room Air 03/01/17 20:00 98.2 83 19 162/86 95 Room Air 03/01/17 17:43 72 135/72 03/01/17 16:04 98.9 72 23 135/72 97 Room Air 03/01/17 14:39 74 153/84 Height (Feet): 6 Height (Inches): 3.00 Weight (Pounds): 245 Respiratory/Chest: normal breath sounds Cardiovascular: regularly irregular Abdomen: no organomegaly Current Medications Medications (Trade) Dose Ordered Sig/Sharla Route PRN Reason Start Time Stop Time Status Last Admin Dose Admin Acetaminophen (Tylenol) 650 mg Q4H PRN ORAL T>100.5 02/11/17 19:30 03/13/17 19:29 03/02/17 04:01 Amlodipine Besylate (Norvasc) 5 mg BID ORAL 02/16/17 18:00 03/18/17 17:59 03/02/17 09:29 Ascorbic Acid 500 mg 500 mg DAILY ORAL 02/17/17 09:00 03/19/17 08:59 03/02/17 09:29 Bisacodyl (Dulcolax) 10 mg DAILYPRN PRN RECTAL Constipation 02/13/17 12:15 03/15/17 12:14 02/13/17 13:30 Cefepime HCl/ Dextrose (Maxipime/D5W) 110 ml @ 220 mls/hr Q12HR IV 02/19/17 21:00 03/03/17 20:59 03/02/17 09:27 Chlorhexidine Gluconate (Chastity-Hex 2%) 1 applic DAILY TOPIC 02/20/17 23:00 03/22/17 22:59 03/02/17 09:30 Clonidine HCl (Catapres) 0.1 mg Q4H PRN ORAL SBP > 160 02/11/17 19:30 03/13/17 19:29 03/02/17 09:29 Dextrose (Dextrose 50%) STAT PRN IV Hypoglycemia 02/11/17 19:30 03/13/17 19:29 Folic Acid (Folate) 1 mg DAILY ORAL 03/01/17 09:00 03/31/17 08:59 03/02/17 09:29 Heparin Sodium (Porcine) (Heparin 5000 units/ml) 5,000 units EVERY 12 HOURS SUBQ 02/11/17 21:00 03/13/17 20:59 03/01/17 21:08 Metronidazole (Flagyl) 100 ml @ 100 mls/hr Q6H IVPB 02/11/17 22:00 03/02/17 21:59 03/02/17 10:59 Multivitamins (Multivitamins) 1 tab DAILY ORAL 02/17/17 09:00 03/19/17 08:59 03/02/17 09:29 Nitroglycerin (Ntg) 0.4 mg Q5M PRN SL Prn Chest Pain 02/11/17 19:15 03/13/17 19:14 Ondansetron HCl (Zofran) 4 mg Q6H PRN IVP Nausea & Vomiting 02/11/17 19:30 03/13/17 19:29 Polyethylene Glycol (Miralax) 17 gm DAILYPRN PRN ORAL Constipation 02/11/17 19:30 03/13/17 19:29 02/26/17 17:54 Thiamine HCl (Vitamin B1) 100 mg DAILY ORAL 03/01/17 09:00 03/31/17 08:59 03/02/17 09:28 YODIT CASTAÑEDA M.D. March 02, 2017 12:23
[2017-03-02 12:30] VITALS: BP 135/78
--- NOTE | 2017-03-02 12:55 | General Progress Note ---
Assessment/Plan Status: stable Assessment/Plan status: Renal Failure : Acute vs Chronic Cr lower Sepsis Cellulitis : bilateral lower extremity cellulitis, athletic foot, and possible right foot osteomyelitis. Gangrene Urine positive for Cocaine Anemia Proteinuria , HypoAlbuminemia Plan: Stable from renal stand BP control- Monitor renal parameters Urine studies 2D echo : Left ventricular ejection fraction estimated to be 60 %. antibiotics and skin care ? DC planning? Placement issue. Subjective ROS Limited/Unobtainable: No Constitutional: Reports: malaise Allergies: Coded Allergies: PENICILLINS (Verified Allergy, Unknown, 02/10/17) Objective Last 24 Hour Vital Signs Date Time Temp Pulse Resp B/P Pulse Ox O2 Delivery O2 Flow Rate FiO2 03/02/17 12:30 98.2 81 22 135/78 95 Room Air 03/02/17 09:29 84 162/110 03/02/17 09:29 162/110 03/02/17 08:15 97.6 84 21 162/110 97 Room Air 03/02/17 04:00 98.1 77 20 163/96 95 Room Air 03/02/17 00:00 98.2 84 20 170/89 95 Room Air 03/01/17 20:00 98.2 83 19 162/86 95 Room Air 03/01/17 17:43 72 135/72 03/01/17 16:04 98.9 72 23 135/72 97 Room Air 03/01/17 14:39 74 153/84 Intake and Output 03/01/17 03/02/17 19:00 07:00 Intake Total 960 ml 210 ml Output Total 1350 ml 1400 ml Balance -390 ml -1190 ml Intake Oral 960 ml IV Total 210 ml Output Urine Total 1350 ml 1400 ml # Voids 5 # Bowel Movements 1 Height (Feet): 6 Height (Inches): 3.00 Weight (Pounds): 245 General Appearance: no apparent distress Objective PE no change MART MOREIRA March 02, 2017 12:55
[2017-03-02 16:24] VITALS: BP 137/70
[2017-03-02] MEDS ORDERED: NS 275ml ONE (17:37)
[2017-03-02] MEDS ORDERED: Tubing IV Secondary IV ONE (17:37)
[2017-03-02] MEDS ORDERED: Norco 10mg/325mg tab ORAL PRN (18:00)
[2017-03-02 19:58] VITALS: BP 147/79
[2017-03-02] MEDS: Morphine Sulfate 2mg/ml Inj IVP PRN (22:04)
--- NOTE | 2017-03-02 22:34 | Pulmonology Progress Note ---
Assessment/Plan Problems: (1) Sepsis (2) Gangrene (3) Homelessness (4) Drug abuse Assessment/Plan iv abx check labs periodically no new events all notes reviewed dc planning in process difficult placement Subjective ROS Limited/Unobtainable: No Allergies: Coded Allergies: PENICILLINS (Verified Allergy, Unknown, 02/10/17) Objective Last 24 Hour Vital Signs Date Time Temp Pulse Resp B/P Pulse Ox O2 Delivery O2 Flow Rate FiO2 03/02/17 19:58 99.3 78 19 147/79 97 Room Air 03/02/17 18:22 76 137/70 03/02/17 16:24 96.7 76 19 137/70 97 Room Air 03/02/17 12:30 98.2 81 22 135/78 95 Room Air 03/02/17 09:29 84 162/110 03/02/17 09:29 162/110 03/02/17 08:15 97.6 84 21 162/110 97 Room Air 03/02/17 04:00 98.1 77 20 163/96 95 Room Air 03/02/17 00:00 98.2 84 20 170/89 95 Room Air Intake and Output 03/01/17 03/02/17 19:00 07:00 Intake Total 960 ml 210 ml Output Total 1350 ml 1400 ml Balance -390 ml -1190 ml Intake Oral 960 ml IV Total 210 ml Output Urine Total 1350 ml 1400 ml # Voids 5 # Bowel Movements 1 Objective General Appearance: WD/WN HEENT: normocephalic Respiratory/Chest: chest wall non-tender, lungs clear Cardiovascular: normal peripheral pulses, regular rhythm Abdomen: normal bowel sounds, soft, non tender Genitourinary: normal external genitalia Extremities: no cyanosis, clean dressing on feet Current Medications Medications (Trade) Dose Ordered Sig/Sharla Route PRN Reason Start Time Stop Time Status Last Admin Dose Admin Acetaminophen (Tylenol) 650 mg Q4H PRN ORAL T>100.5 02/11/17 19:30 03/13/17 19:29 03/02/17 04:01 Acetaminophen/ Hydrocodone Bitart ([place] 10/325) 1 ea Q4H PRN ORAL Moderate Pain (Pain Scale 4-6) 03/02/17 18:00 03/09/17 17:59 03/02/17 18:22 Amlodipine Besylate (Norvasc) 5 mg BID ORAL 02/16/17 18:00 03/18/17 17:59 03/02/17 18:22 Ascorbic Acid 500 mg 500 mg DAILY ORAL 02/17/17 09:00 03/19/17 08:59 03/02/17 09:29 Bisacodyl (Dulcolax) 10 mg DAILYPRN PRN RECTAL Constipation 02/13/17 12:15 03/15/17 12:14 02/13/17 13:30 Cefepime HCl/ Dextrose (Maxipime/D5W) 110 ml @ 220 mls/hr Q12HR IV 02/19/17 21:00 03/03/17 20:59 03/02/17 20:16 Chlorhexidine Gluconate (Chastity-Hex 2%) 1 applic DAILY TOPIC 02/20/17 23:00 03/22/17 22:59 03/02/17 09:30 Clonidine HCl (Catapres) 0.1 mg Q4H PRN ORAL SBP > 160 02/11/17 19:30 03/13/17 19:29 03/02/17 09:29 Dextrose (Dextrose 50%) STAT PRN IV Hypoglycemia 02/11/17 19:30 03/13/17 19:29 Folic Acid (Folate) 1 mg DAILY ORAL 03/01/17 09:00 03/31/17 08:59 03/02/17 09:29 Heparin Sodium (Porcine) (Heparin 5000 units/ml) 5,000 units EVERY 12 HOURS SUBQ 02/11/17 21:00 03/13/17 20:59 03/02/17 20:20 Methadone HCl (Methadone HCl) 80 mg DAILY ORAL 03/03/17 09:00 03/10/17 08:59 UNV Metronidazole (Flagyl) 100 ml @ 100 mls/hr Q6H IVPB 02/11/17 22:00 03/09/17 21:59 03/02/17 22:04 Morphine Sulfate (Morphine Sulfate) 2 mg Q4H PRN IVP Severe Pain (Pain Scale 7-10) 03/02/17 22:00 03/09/17 21:59 03/02/17 22:04 Multivitamins (Multivitamins) 1 tab DAILY ORAL 02/17/17 09:00 03/19/17 08:59 03/02/17 09:29 Nitroglycerin (Ntg) 0.4 mg Q5M PRN SL Prn Chest Pain 02/11/17 19:15 03/13/17 19:14 Ondansetron HCl (Zofran) 4 mg Q6H PRN IVP Nausea & Vomiting 02/11/17 19:30 03/13/17 19:29 Polyethylene Glycol (Miralax) 17 gm DAILYPRN PRN ORAL Constipation 02/11/17 19:30 03/13/17 19:29 02/26/17 17:54 Thiamine HCl (Vitamin B1) 100 mg DAILY ORAL 03/01/17 09:00 03/31/17 08:59 03/02/17 09:28 RASHAAD GALLAGHER March 02, 2017 22:34
[2017-03-03] VITALS: BP 142/78
[2017-03-03] MEDS: metroNIDAZOLE 500mg 100 ML IVPB SCH ×4 (03:33→22:21)
[2017-03-03] MEDS: Morphine Sulfate 2mg/ml Inj IVP PRN ×2 (03:37→21:17)
[2017-03-03 04:00] VITALS: BP 150/80
[2017-03-03 08:00] VITALS: BP 142/86
[2017-03-03] MEDS: Cefepime HCl 2 GM in D5W 110 ML IV SCH ×2 (09:18→20:53)
[2017-03-03] MEDS: Ascorbic Acid 500mg tab ORAL SCH (09:18)
[2017-03-03] MEDS: Thiamine 100mg tab ORAL SCH (09:18)
[2017-03-03] MEDS: Dyna-Hex 2% Top Sol 8oz TOPIC SCH (09:19)
[2017-03-03] MEDS: Heparin 5000 units/ml inj SUBQ SCH ×2 (09:22→20:46)
--- NOTE | 2017-03-03 10:32 | Infectious Diseases Prog Note ---
Assessment/Plan Assessment/Plan ASSESSMENT: 61-year-old male with: Bilateral lower extremity cellulitis, and osteomyelitis of the right foot - WCx GAS.pyogenes, ( diptheroids:colonizer ) I&D was performed at bedside of bilateral hallux abscess 02/11 MRI : Acute osteomyelitis suspected with regard to the first distal phalange , second distal phalange, and proximal fifth phalange Polymicrobial ( CONS 2/4, Diptheroids 1/ ) bacteremia, possible contaminant - repeat BCx 02/11 Neg Transaminitis Hep C Ab+, PCR >2million HIV neg Fever , SP Leukocytosis, SP Renal Failure : Acute , SP HTN U tox +ve for cocaine and opiates Homeless PCN allergy - tolerating cefepime Full Code PLAN: Continue IV cefepime and Flagyl d# / ( SP vancomycin d# 7 ) outpt HCV Rx eval Monitor liver function tests Monitor CBC and BMP wound care Subjective Constitutional: Denies: anorexia, chills, drenching sweats, fatigue, fever, no symptoms, other Allergies: Coded Allergies: PENICILLINS (Verified Allergy, Unknown, 02/10/17) Subjective comfortable Objective Vital Signs Last 24 Hour Vital Signs Date Time Temp Pulse Resp B/P Pulse Ox O2 Delivery O2 Flow Rate FiO2 03/03/17 09:26 75 142/86 03/03/17 08:00 98.1 75 20 142/86 97 Room Air 03/03/17 04:08 98.2 03/03/17 04:00 98.2 76 19 150/80 97 Room Air 03/03/17 00:00 98.2 76 20 142/78 98 Room Air 03/02/17 19:58 99.3 78 19 147/79 97 Room Air 03/02/17 18:22 76 137/70 03/02/17 16:24 96.7 76 19 137/70 97 Room Air 03/02/17 12:30 98.2 81 22 135/78 95 Room Air Height (Feet): 6 Height (Inches): 3.00 Weight (Pounds): 245 HEENT: anicteric Respiratory/Chest: no respiratory distress Cardiovascular: regularly irregular Abdomen: non distended Current Medications Medications (Trade) Dose Ordered Sig/Sharla Route PRN Reason Start Time Stop Time Status Last Admin Dose Admin Acetaminophen (Tylenol) 650 mg Q4H PRN ORAL T>100.5 02/11/17 19:30 03/13/17 19:29 03/02/17 04:01 Acetaminophen/ Hydrocodone Bitart ([place] 10) 1 ea Q4H PRN ORAL Moderate Pain (Pain Scale 4-6) 03/02/17 18:00 03/09/17 17:59 03/02/17 18:22 Amlodipine Besylate (Norvasc) 5 mg BID ORAL 02/16/17 18:00 03/18/17 17:59 03/03/17 09:26 Ascorbic Acid 500 mg 500 mg DAILY ORAL 02/17/17 09:00 03/19/17 08:59 03/03/17 09:18 Bisacodyl (Dulcolax) 10 mg DAILYPRN PRN RECTAL Constipation 02/13/17 12:15 03/15/17 12:14 02/13/17 13:30 Cefepime HCl/ Dextrose (Maxipime/D5W) 110 ml @ 220 mls/hr Q12HR IV 02/19/17 21:00 03/03/17 20:59 03/03/17 09:18 Chlorhexidine Gluconate (Chastity-Hex 2%) 1 applic DAILY TOPIC 02/20/17 23:00 03/22/17 22:59 03/03/17 09:19 Clonidine HCl (Catapres) 0.1 mg Q4H PRN ORAL SBP > 160 02/11/17 19:30 03/13/17 19:29 03/02/17 09:29 Dextrose (Dextrose 50%) STAT PRN IV Hypoglycemia 02/11/17 19:30 03/13/17 19:29 Folic Acid (Folate) 1 mg DAILY ORAL 03/01/17 09:00 03/31/17 08:59 03/03/17 09:19 Heparin Sodium (Porcine) (Heparin 5000 units/ml) 5,000 units EVERY 12 HOURS SUBQ 02/11/17 21:00 03/13/17 20:59 03/03/17 09:22 Methadone HCl (Methadone HCl) 80 mg DAILY ORAL 03/03/17 09:00 04/02/17 08:59 03/03/17 09:19 Metronidazole (Flagyl) 100 ml @ 100 mls/hr Q6H IVPB 02/11/17 22:00 03/09/17 21:59 03/03/17 10:28 Morphine Sulfate (Morphine Sulfate) 2 mg Q4H PRN IVP Severe Pain (Pain Scale 7-10) 03/02/17 22:00 03/09/17 21:59 03/03/17 03:37 Multivitamins (Multivitamins) 1 tab DAILY ORAL 02/17/17 09:00 03/19/17 08:59 03/03/17 09:18 Nitroglycerin (Ntg) 0.4 mg Q5M PRN SL Prn Chest Pain 02/11/17 19:15 03/13/17 19:14 Ondansetron HCl (Zofran) 4 mg Q6H PRN IVP Nausea & Vomiting 02/11/17 19:30 03/13/17 19:29 Polyethylene Glycol (Miralax) 17 gm DAILYPRN PRN ORAL Constipation 02/11/17 19:30 03/13/17 19:29 02/26/17 17:54 Thiamine HCl (Vitamin B1) 100 mg DAILY ORAL 03/01/17 09:00 03/31/17 08:59 03/03/17 09:18 YODIT CASTAÑEDA M.D. March 03, 2017 10:32
[2017-03-03 12:00] VITALS: BP 129/85
--- NOTE | 2017-03-03 12:36 | Diagnostic Imaging Report ---
APPROVED REPORT CPT Code: 32895 Present Symptoms Lower Extremity Pain: Bilateral Lower Extremity Edema: Left BILATERAL: Imaging reveals a patent deep venous system bilaterally. There is no evidence of thrombus within the femoral, popliteal or tibial segments. The greater saphenous veins are also within normal limits. Doppler indicates normal spontaneous flow within these segments.
--- NOTE | 2017-03-03 15:01 | General Progress Note ---
Assessment/Plan Status: stable Assessment/Plan status: Renal Failure : Acute vs Chronic Cr lower Sepsis Cellulitis : bilateral lower extremity cellulitis, athletic foot, and possible right foot osteomyelitis. Gangrene Urine positive for Cocaine Anemia Proteinuria , HypoAlbuminemia Plan: Stable from renal stand BP control- Monitor renal parameters Urine studies 2D echo : Left ventricular ejection fraction estimated to be 60 %. antibiotics and skin care ? DC planning? Placement issue. Subjective ROS Limited/Unobtainable: No Allergies: Coded Allergies: PENICILLINS (Verified Allergy, Unknown, 02/10/17) Objective Last 24 Hour Vital Signs Date Time Temp Pulse Resp B/P Pulse Ox O2 Delivery O2 Flow Rate FiO2 03/03/17 12:00 98.1 78 20 129/85 98 Room Air 03/03/17 09:26 75 142/86 03/03/17 08:00 98.1 75 20 142/86 97 Room Air 03/03/17 04:08 98.2 03/03/17 04:00 98.2 76 19 150/80 97 Room Air 03/03/17 00:00 98.2 76 20 142/78 98 Room Air 03/02/17 19:58 99.3 78 19 147/79 97 Room Air 03/02/17 18:22 76 137/70 03/02/17 16:24 96.7 76 19 137/70 97 Room Air Intake and Output 03/02/17 03/03/17 19:00 07:00 Intake Total 1270 ml 310 ml Output Total 400 ml Balance 870 ml 310 ml Intake Oral 960 ml IV Total 310 ml 310 ml Output Urine Total 400 ml # Voids 4 2 # Bowel Movements 2 Height (Feet): 6 Height (Inches): 3.00 Weight (Pounds): 245 General Appearance: no apparent distress Objective PE no change MART MOREIRA March 03, 2017 15:01
--- NOTE | 2017-03-03 15:25 | Pulmonology Progress Note ---
Assessment/Plan Problems: (1) Sepsis (2) Gangrene (3) Homelessness (4) Drug abuse Assessment/Plan iv abx check labs periodically no new events all notes reviewed dc planning in process difficult placement Subjective ROS Limited/Unobtainable: No Allergies: Coded Allergies: PENICILLINS (Verified Allergy, Unknown, 02/10/17) Objective Last 24 Hour Vital Signs Date Time Temp Pulse Resp B/P Pulse Ox O2 Delivery O2 Flow Rate FiO2 03/03/17 12:00 98.1 78 20 129/85 98 Room Air 03/03/17 09:26 75 142/86 03/03/17 08:00 98.1 75 20 142/86 97 Room Air 03/03/17 04:08 98.2 03/03/17 04:00 98.2 76 19 150/80 97 Room Air 03/03/17 00:00 98.2 76 20 142/78 98 Room Air 03/02/17 19:58 99.3 78 19 147/79 97 Room Air 03/02/17 18:22 76 137/70 03/02/17 16:24 96.7 76 19 137/70 97 Room Air Intake and Output 03/02/17 03/03/17 19:00 07:00 Intake Total 1270 ml 310 ml Output Total 400 ml Balance 870 ml 310 ml Intake Oral 960 ml IV Total 310 ml 310 ml Output Urine Total 400 ml # Voids 4 2 # Bowel Movements 2 Objective General Appearance: WD/WN HEENT: normocephalic Respiratory/Chest: chest wall non-tender, lungs clear Cardiovascular: normal peripheral pulses, regular rhythm Abdomen: normal bowel sounds, soft, non tender Genitourinary: normal external genitalia Extremities: no cyanosis, clean dressing on feet Current Medications Medications (Trade) Dose Ordered Sig/Sharla Route PRN Reason Start Time Stop Time Status Last Admin Dose Admin Acetaminophen (Tylenol) 650 mg Q4H PRN ORAL T>100.5 02/11/17 19:30 03/13/17 19:29 03/02/17 04:01 Acetaminophen/ Hydrocodone Bitart ([place] 10/325) 1 ea Q4H PRN ORAL Moderate Pain (Pain Scale 4-6) 03/02/17 18:00 03/09/17 17:59 03/02/17 18:22 Amlodipine Besylate (Norvasc) 5 mg BID ORAL 02/16/17 18:00 03/18/17 17:59 03/03/17 09:26 Ascorbic Acid 500 mg 500 mg DAILY ORAL 02/17/17 09:00 03/19/17 08:59 03/03/17 09:18 Bisacodyl (Dulcolax) 10 mg DAILYPRN PRN RECTAL Constipation 02/13/17 12:15 03/15/17 12:14 02/13/17 13:30 Cefepime HCl/ Dextrose (Maxipime/D5W) 110 ml @ 220 mls/hr Q12HR IV 02/19/17 21:00 03/10/17 20:59 03/03/17 09:18 Chlorhexidine Gluconate (Chastity-Hex 2%) 1 applic DAILY TOPIC 02/20/17 23:00 03/22/17 22:59 03/03/17 09:19 Clonidine HCl (Catapres) 0.1 mg Q4H PRN ORAL SBP > 160 02/11/17 19:30 03/13/17 19:29 03/02/17 09:29 Dextrose (Dextrose 50%) STAT PRN IV Hypoglycemia 02/11/17 19:30 03/13/17 19:29 Folic Acid (Folate) 1 mg DAILY ORAL 03/01/17 09:00 03/31/17 08:59 03/03/17 09:19 Heparin Sodium (Porcine) (Heparin 5000 units/ml) 5,000 units EVERY 12 HOURS SUBQ 02/11/17 21:00 03/13/17 20:59 03/03/17 09:22 Methadone HCl (Methadone HCl) 80 mg DAILY ORAL 03/03/17 09:00 04/02/17 08:59 03/03/17 09:19 Metronidazole (Flagyl) 100 ml @ 100 mls/hr Q6H IVPB 02/11/17 22:00 03/09/17 21:59 03/03/17 10:28 Morphine Sulfate (Morphine Sulfate) 2 mg Q4H PRN IVP Severe Pain (Pain Scale 7-10) 03/02/17 22:00 03/09/17 21:59 03/03/17 03:37 Multivitamins (Multivitamins) 1 tab DAILY ORAL 02/17/17 09:00 03/19/17 08:59 5/30/17 09:18 Nitroglycerin (Ntg) 0.4 mg Q5M PRN SL Prn Chest Pain 02/11/17 19:15 03/13/17 19:14 Ondansetron HCl (Zofran) 4 mg Q6H PRN IVP Nausea & Vomiting 02/11/17 19:30 03/13/17 19:29 Polyethylene Glycol (Miralax) 17 gm DAILYPRN PRN ORAL Constipation 02/11/17 19:30 03/13/17 19:29 02/26/17 17:54 Thiamine HCl (Vitamin B1) 100 mg DAILY ORAL 03/01/17 09:00 03/31/17 08:59 03/03/17 09:18 RASHAAD GALLAGHER March 03, 2017 15:25
[2017-03-03 16:00] VITALS: BP 138/78
[2017-03-03 20:00] VITALS: BP 154/93
[2017-03-04] VITALS: BP 141/83
[2017-03-04] MEDS: Morphine Sulfate 2mg/ml Inj IVP PRN (02:35)
[2017-03-04] MEDS: metroNIDAZOLE 500mg 100 ML IVPB SCH ×4 (03:49→22:08)
[2017-03-04 04:00] VITALS: BP 159/96
[2017-03-04 07:06] LABS: BASOPHILS % (AUTO) 1.5 % (0.0-2.0); EOSINOPHILS % (AUTO) 3.7 % (0.0-3.0); LYMPHOCYTES % (AUTO) 39.9 % (20.0-45.0); MEAN CORPUSCULAR HEMOGLOBIN 33.8 PG (27.0-31.0); MEAN CORPUSCULAR HGB CONC 33.5 G/DL (32.0-36.0); MEAN CORPUSCULAR VOLUME 101 FL (80-99); MONOCYTES % (AUTO) 12.2 % (1.0-10.0); NEUTROPHILS % (AUTO) 42.8 % (45.0-75.0); PLATELET COUNT 117 K/UL (150-450); RED BLOOD COUNT 2.82 M/UL (4.70-6.10); RED CELL DISTRIBUTION WIDTH 12.9 % (11.6-14.8); WHITE BLOOD COUNT 6.3 K/UL (4.8-10.8)
[2017-03-04 07:38] LABS: ALANINE AMINOTRANSFERASE 15 U/L (3-41); ALBUMIN/GLOBULIN RATIO 0.2 (1.0-2.7); ANION GAP 8 (5-15); ASPARTATE AMINO TRANSFERASE 53 U/L (5-40); CALCIUM 8.5 mg/dL (8.6-10.2); CARBON DIOXIDE 29 mEQ/L (20-30); CHLORIDE 98 mEQ/L (98-107); CREATININE 0.9 mg/dL (0.7-1.2); GLOMERULAR FILTRATION RATE > 60 mL/min (>60); HEMOLYSIS 3; POTASSIUM 4.7 mEQ/L (3.4-4.9); SODIUM 135 mEQ/L (135-145)
[2017-03-04 08:06] VITALS: BP 148/98
[2017-03-04] MEDS: Thiamine 100mg tab ORAL SCH (08:48)
[2017-03-04] MEDS: Ascorbic Acid 500mg tab ORAL SCH (08:48)
[2017-03-04] MEDS: Dyna-Hex 2% Top Sol 8oz TOPIC SCH (08:49)
[2017-03-04] MEDS: Heparin 5000 units/ml inj SUBQ SCH ×2 (08:49→20:20)
[2017-03-04] MEDS: Cefepime HCl 2 GM in D5W 110 ML IV SCH ×2 (08:54→20:20)
--- NOTE | 2017-03-04 09:22 | General Progress Note ---
Assessment/Plan Status: unchanged Assessment/Plan status: Renal Failure : Acute vs Chronic Cr lower Sepsis Cellulitis : bilateral lower extremity cellulitis, athletic foot, and possible right foot osteomyelitis. Gangrene Urine positive for Cocaine Anemia Proteinuria , HypoAlbuminemia Plan: Stable from renal stand BP control- Monitor renal parameters Urine studies 2D echo : Left ventricular ejection fraction estimated to be 60 %. antibiotics and skin care ? DC planning? Placement issue. Subjective ROS Limited/Unobtainable: No Allergies: Coded Allergies: PENICILLINS (Verified Allergy, Unknown, 02/10/17) Objective Last 24 Hour Vital Signs Date Time Temp Pulse Resp B/P Pulse Ox O2 Delivery O2 Flow Rate FiO2 03/04/17 08:49 82 148/98 03/04/17 08:06 98.6 82 23 148/98 99 Room Air 03/04/17 04:00 97.9 83 20 159/96 97 Room Air 03/04/17 00:00 98.2 78 20 141/83 96 Room Air 03/03/17 20:00 98.2 81 20 154/93 98 Room Air 03/03/17 17:12 80 138/78 03/03/17 16:00 98.8 80 20 138/78 97 Room Air 03/03/17 12:00 98.1 78 20 129/85 98 Room Air 03/03/17 09:26 75 142/86 Intake and Output 03/03/17 03/04/17 19:00 07:00 Intake Total 510 ml 310 ml Output Total 950 ml Balance 510 ml -640 ml Intake Oral 300 ml IV Total 210 ml 310 ml Output Urine Total 950 ml # Voids 4 3 # Bowel Movements 1 Laboratory Tests 03/04/17 06:00: White Blood Count 6.3, Red Blood Count 2.82L, Hemoglobin 9.5L, Hematocrit 28.4L , Mean Corpuscular Volume 101H, Mean Corpuscular Hemoglobin 33.8H, Mean Corpuscular Hemoglobin Concent 33.5, Red Cell Distribution Width 12.9, Platelet Count 117L, Mean Platelet Volume 9.0, Neutrophils (%) (Auto) 42.8L, Lymphocytes (%) (Auto) 39.9, Monocytes (%) (Auto) 12.2H, Eosinophils (%) (Auto) 3.7H, Basophils (%) (Auto) 1.5, Sodium Level 135, Potassium Level 4.7, Chloride Level 98, Carbon Dioxide Level 29, Anion Gap 8, Blood Urea Nitrogen 20, Creatinine 0.9 , Estimat Glomerular Filtration Rate > 60, Glucose Level 67L, Calcium Level 8.5L , Total Bilirubin 0.8, Aspartate Amino Transf (AST/SGOT) 53H, Alanine Aminotransferase (ALT/SGPT) 15, Alkaline Phosphatase 112, Total Protein 10.0H, Albumin 2.3L, Globulin 7.7, Albumin/Globulin Ratio 0.2L Height (Feet): 6 Height (Inches): 3.00 Weight (Pounds): 245 General Appearance: no apparent distress Objective PE no change MART MOREIRA March 04, 2017 09:22
[2017-03-04 11:36] VITALS: BP 137/78
--- NOTE | 2017-03-04 15:13 | Pulmonology Progress Note ---
Assessment/Plan Problems: (1) Sepsis (2) Gangrene (3) Liver cirrhosis (4) Coagulopathy (5) Hepatitis C (6) Drug abuse (7) Homelessness Assessment/Plan iv abx check labs periodically no new events all notes reviewed dc planning in process difficult placement Subjective ROS Limited/Unobtainable: No Constitutional: Reports: no symptoms HEENT: Repors: no symptoms Allergies: Coded Allergies: PENICILLINS (Verified Allergy, Unknown, 02/10/17) Objective Last 24 Hour Vital Signs Date Time Temp Pulse Resp B/P Pulse Ox O2 Delivery O2 Flow Rate FiO2 03/04/17 11:36 98.1 77 21 137/78 97 Room Air 03/04/17 08:49 82 148/98 03/04/17 08:06 98.6 82 23 148/98 99 Room Air 03/04/17 04:00 97.9 83 20 159/96 97 Room Air 03/04/17 00:00 98.2 78 20 141/83 96 Room Air 03/03/17 20:00 98.2 81 20 154/93 98 Room Air 03/03/17 17:12 80 138/78 03/03/17 16:00 98.8 80 20 138/78 97 Room Air Intake and Output 03/03/17 03/04/17 19:00 07:00 Intake Total 510 ml 310 ml Output Total 950 ml Balance 510 ml -640 ml Intake Oral 300 ml IV Total 210 ml 310 ml Output Urine Total 950 ml # Voids 4 3 # Bowel Movements 1 Objective General Appearance: WD/WN HEENT: normocephalic Respiratory/Chest: chest wall non-tender, lungs clear Cardiovascular: normal peripheral pulses, regular rhythm Abdomen: normal bowel sounds, soft, non tender Genitourinary: normal external genitalia Extremities: no cyanosis, clean dressing on feet Laboratory Tests 03/04/17 06:00: White Blood Count 6.3, Red Blood Count 2.82L, Hemoglobin 9.5L, Hematocrit 28.4L , Mean Corpuscular Volume 101H, Mean Corpuscular Hemoglobin 33.8H, Mean Corpuscular Hemoglobin Concent 33.5, Red Cell Distribution Width 12.9, Platelet Count 117L, Mean Platelet Volume 9.0, Neutrophils (%) (Auto) 42.8L, Lymphocytes (%) (Auto) 39.9, Monocytes (%) (Auto) 12.2H, Eosinophils (%) (Auto) 3.7H, Basophils (%) (Auto) 1.5, Sodium Level 135, Potassium Level 4.7, Chloride Level 98, Carbon Dioxide Level 29, Anion Gap 8, Blood Urea Nitrogen 20, Creatinine 0.9 , Estimat Glomerular Filtration Rate > 60, Glucose Level 67L, Calcium Level 8.5L , Total Bilirubin 0.8, Aspartate Amino Transf (AST/SGOT) 53H, Alanine Aminotransferase (ALT/SGPT) 15, Alkaline Phosphatase 112, Total Protein 10.0H, Albumin 2.3L, Globulin 7.7, Albumin/Globulin Ratio 0.2L Current Medications Medications (Trade) Dose Ordered Sig/Sharla Route PRN Reason Start Time Stop Time Status Last Admin Dose Admin Acetaminophen (Tylenol) 650 mg Q4H PRN ORAL T>100.5 02/11/17 19:30 03/13/17 19:29 03/02/17 04:01 Acetaminophen/ Hydrocodone Bitart ([place] 10/325) 1 ea Q4H PRN ORAL Moderate Pain (Pain Scale 4-6) 03/02/17 18:00 03/09/17 17:59 03/02/17 18:22 Amlodipine Besylate (Norvasc) 5 mg BID ORAL 02/16/17 18:00 03/18/17 17:59 03/04/17 08:49 Ascorbic Acid 500 mg 500 mg DAILY ORAL 02/17/17 09:00 03/19/17 08:59 03/04/17 08:48 Bisacodyl (Dulcolax) 10 mg DAILYPRN PRN RECTAL Constipation 02/13/17 12:15 03/15/17 12:14 02/13/17 13:30 Cefepime HCl/ Dextrose (Maxipime/D5W) 110 ml @ 220 mls/hr Q12HR IV 02/19/17 21:00 03/10/17 20:59 03/04/17 08:54 Chlorhexidine Gluconate (Chastity-Hex 2%) 1 applic DAILY TOPIC 02/20/17 23:00 03/22/17 22:59 03/04/17 08:49 Clonidine HCl (Catapres) 0.1 mg Q4H PRN ORAL SBP > 160 02/11/17 19:30 03/13/17 19:29 03/02/17 09:29 Dextrose (Dextrose 50%) STAT PRN IV Hypoglycemia 02/11/17 19:30 03/13/17 19:29 Folic Acid (Folate) 1 mg DAILY ORAL 03/01/17 09:00 03/31/17 08:59 03/04/17 08:48 Heparin Sodium (Porcine) (Heparin 5000 units/ml) 5,000 units EVERY 12 HOURS SUBQ 02/11/17 21:00 03/13/17 20:59 03/03/17 09:22 Methadone HCl (Methadone HCl) 80 mg DAILY ORAL 03/03/17 09:00 04/02/17 08:59 03/04/17 08:48 Metronidazole (Flagyl) 100 ml @ 100 mls/hr Q6H IVPB 02/11/17 22:00 03/09/17 21:59 03/04/17 10:27 Morphine Sulfate (Morphine Sulfate) 2 mg Q4H PRN IVP Severe Pain (Pain Scale 7-10) 03/02/17 22:00 03/09/17 21:59 03/04/17 02:35 Multivitamins (Multivitamins) 1 tab DAILY ORAL 02/17/17 09:00 03/19/17 08:59 03/04/17 08:48 Nitroglycerin (Ntg) 0.4 mg Q5M PRN SL Prn Chest Pain 02/11/17 19:15 03/13/17 19:14 Ondansetron HCl (Zofran) 4 mg Q6H PRN IVP Nausea & Vomiting 02/11/17 19:30 03/13/17 19:29 Polyethylene Glycol (Miralax) 17 gm DAILYPRN PRN ORAL Constipation 02/11/17 19:30 03/13/17 19:29 02/26/17 17:54 Thiamine HCl (Vitamin B1) 100 mg DAILY ORAL 03/01/17 09:00 03/31/17 08:59 03/04/17 08:48 RASHAAD GALLAGHER March 04, 2017 15:13
[2017-03-04 15:38] VITALS: BP 162/87
--- NOTE | 2017-03-04 19:30 | Infectious Diseases Prog Note ---
Assessment/Plan Assessment/Plan ASSESSMENT: 61-year-old male with: Bilateral lower extremity cellulitis, and osteomyelitis of the right foot - WCx GAS.pyogenes, ( diptheroids:colonizer ) I&D was performed at bedside of bilateral hallux abscess 02/11 MRI : Acute osteomyelitis suspected with regard to the first distal phalange , second distal phalange, and proximal fifth phalange Polymicrobial ( CONS 2/4, Diptheroids 1/4 ) bacteremia, possible contaminant - repeat BCx 02/11 Neg Transaminitis Hep C Ab+, PCR >2million HIV neg Fever , SP Leukocytosis, SP Renal Failure : Acute , SP HTN U tox +ve for cocaine and opiates Homeless PCN allergy - tolerating cefepime Full Code PLAN: Continue IV cefepime and Flagyl d# 23 / ( SP vancomycin d# 7 ) outpt HCV Rx eval Monitor liver function tests Monitor CBC and BMP wound care Subjective Constitutional: Denies: anorexia, chills, drenching sweats, fatigue, fever, no symptoms, other Allergies: Coded Allergies: PENICILLINS (Verified Allergy, Unknown, 02/10/17) Subjective comfortable Objective Vital Signs Last 24 Hour Vital Signs Date Time Temp Pulse Resp B/P Pulse Ox O2 Delivery O2 Flow Rate FiO2 03/04/17 17:59 88 162/87 03/04/17 15:38 98.2 88 23 162/87 97 Room Air 03/04/17 15:21 167/78 03/04/17 11:36 98.1 77 21 137/78 97 Room Air 03/04/17 08:49 82 148/98 03/04/17 08:06 98.6 82 23 148/98 99 Room Air 03/04/17 04:00 97.9 83 20 159/96 97 Room Air 03/04/17 00:00 98.2 78 20 141/83 96 Room Air 03/03/17 20:00 98.2 81 20 154/93 98 Room Air Height (Feet): 6 Height (Inches): 3.00 Weight (Pounds): 245 HEENT: anicteric Respiratory/Chest: no accessory muscle use Cardiovascular: no gallop/murmur Abdomen: non distended Laboratory Tests Test 03/04/17 06:00 White Blood Count 6.3 K/UL (4.8-10.8) Red Blood Count 2.82 M/UL (4.70-6.10) L Hemoglobin 9.5 G/DL (14.2-18.0) L Hematocrit 28.4 % (42.0-52.0) L Mean Corpuscular Volume 101 FL (80-99) H Mean Corpuscular Hemoglobin 33.8 PG (27.0-31.0) H Mean Corpuscular Hemoglobin Concent 33.5 G/DL (32.0-36.0) Red Cell Distribution Width 12.9 % (11.6-14.8) Platelet Count 117 K/UL (150-450) L Mean Platelet Volume 9.0 FL (6.5-10.1) Neutrophils (%) (Auto) 42.8 % (45.0-75.0) L Lymphocytes (%) (Auto) 39.9 % (20.0-45.0) Monocytes (%) (Auto) 12.2 % (1.0-10.0) H Eosinophils (%) (Auto) 3.7 % (0.0-3.0) H Basophils (%) (Auto) 1.5 % (0.0-2.0) Sodium Level 135 mEQ/L (135-145) Potassium Level 4.7 mEQ/L (3.4-4.9) Chloride Level 98 mEQ/L (98-107) Carbon Dioxide Level 29 mEQ/L (20-30) Anion Gap 8 (5-15) Blood Urea Nitrogen 20 mg/dL (7-23) Creatinine 0.9 mg/dL (0.7-1.2) Estimat Glomerular Filtration Rate > 60 mL/min (>60) Glucose Level 67 mg/dL (74-106) L Calcium Level 8.5 mg/dL (8.6-10.2) L Total Bilirubin 0.8 mg/dL (0.0-1.2) Aspartate Amino Transf (AST/SGOT) 53 U/L (5-40) H Alanine Aminotransferase (ALT/SGPT) 15 U/L (3-41) Alkaline Phosphatase 112 U/L (40-129) Total Protein 10.0 g/dL (6.6-8.7) H Albumin 2.3 g/dL (3.5-5.2) L Globulin 7.7 g/dL Albumin/Globulin Ratio 0.2 (1.0-2.7) L Current Medications Medications (Trade) Dose Ordered Sig/Sharla Route PRN Reason Start Time Stop Time Status Last Admin Dose Admin Acetaminophen (Tylenol) 650 mg Q4H PRN ORAL T>100.5 02/11/17 19:30 03/13/17 19:29 03/02/17 04:01 Acetaminophen/ Hydrocodone Bitart ([place] 10/325) 1 ea Q4H PRN ORAL Moderate Pain (Pain Scale 4-6) 03/02/17 18:00 03/09/17 17:59 03/02/17 18:22 Amlodipine Besylate (Norvasc) 5 mg BID ORAL 02/16/17 18:00 03/18/17 17:59 03/04/17 17:59 Ascorbic Acid 500 mg 500 mg DAILY ORAL 02/17/17 09:00 03/19/17 08:59 03/04/17 08:48 Bisacodyl (Dulcolax) 10 mg DAILYPRN PRN RECTAL Constipation 02/13/17 12:15 03/15/17 12:14 02/13/17 13:30 Cefepime HCl/ Dextrose (Maxipime/D5W) 110 ml @ 220 mls/hr Q12HR IV 02/19/17 21:00 03/10/17 20:59 03/04/17 08:54 Chlorhexidine Gluconate (Chastity-Hex 2%) 1 applic DAILY TOPIC 02/20/17 23:00 03/22/17 22:59 03/04/17 08:49 Clonidine HCl (Catapres) 0.1 mg Q4H PRN ORAL SBP > 160 02/11/17 19:30 03/13/17 19:29 03/04/17 15:21 Dextrose (Dextrose 50%) STAT PRN IV Hypoglycemia 02/11/17 19:30 03/13/17 19:29 Folic Acid (Folate) 1 mg DAILY ORAL 03/01/17 09:00 03/31/17 08:59 03/04/17 08:48 Heparin Sodium (Porcine) (Heparin 5000 units/ml) 5,000 units EVERY 12 HOURS SUBQ 02/11/17 21:00 03/13/17 20:59 03/03/17 09:22 Methadone HCl (Methadone HCl) 80 mg DAILY ORAL 03/03/17 09:00 04/02/17 08:59 03/04/17 08:48 Metronidazole (Flagyl) 100 ml @ 100 mls/hr Q6H IVPB 02/11/17 22:00 03/09/17 21:59 03/04/17 15:20 Morphine Sulfate (Morphine Sulfate) 2 mg Q4H PRN IVP Severe Pain (Pain Scale 7-10) 03/02/17 22:00 03/09/17 21:59 03/04/17 02:35 Multivitamins (Multivitamins) 1 tab DAILY ORAL 02/17/17 09:00 03/19/17 08:59 03/04/17 08:48 Nitroglycerin (Ntg) 0.4 mg Q5M PRN SL Prn Chest Pain 02/11/17 19:15 03/13/17 19:14 Ondansetron HCl (Zofran) 4 mg Q6H PRN IVP Nausea & Vomiting 02/11/17 19:30 03/13/17 19:29 Polyethylene Glycol (Miralax) 17 gm DAILYPRN PRN ORAL Constipation 02/11/17 19:30 03/13/17 19:29 02/26/17 17:54 Thiamine HCl (Vitamin B1) 100 mg DAILY ORAL 03/01/17 09:00 03/31/17 08:59 03/04/17 08:48 YODIT CASTAÑEDA M.D. March 04, 2017 19:30
[2017-03-04 20:00] VITALS: BP 151/87
[2017-03-05] VITALS: BP 139/75
[2017-03-05 04:00] VITALS: BP 141/91
[2017-03-05] MEDS: metroNIDAZOLE 500mg 100 ML IVPB SCH ×2 (04:16→09:55)
[2017-03-05 08:00] VITALS: BP 149/82
[2017-03-05] MEDS: Cefepime HCl 2 GM in D5W 110 ML IV SCH (08:44)
[2017-03-05] MEDS: Ascorbic Acid 500mg tab ORAL SCH (08:44)
[2017-03-05] MEDS: Dyna-Hex 2% Top Sol 8oz TOPIC SCH (08:44)
[2017-03-05] MEDS: Thiamine 100mg tab ORAL SCH (08:46)
[2017-03-05] MEDS: Heparin 5000 units/ml inj SUBQ SCH (08:46)
--- NOTE | 2017-03-05 09:35 | Infectious Diseases Prog Note ---
Assessment/Plan Assessment/Plan ASSESSMENT: 61-year-old male with: Bilateral lower extremity cellulitis, and osteomyelitis of the right foot - WCx GAS.pyogenes, ( diptheroids:colonizer ) I&D was performed at bedside of bilateral hallux abscess 02/11 MRI : Acute osteomyelitis suspected with regard to the first distal phalange , second distal phalange, and proximal fifth phalange Polymicrobial ( CONS 2/4, Diptheroids 1/ ) bacteremia, possible contaminant - repeat BCx 02/11 Neg Transaminitis Hep C Ab+, PCR >2million HIV neg Fever , SP Leukocytosis, SP Renal Failure : Acute , SP HTN U tox +ve for cocaine and opiates Homeless PCN allergy - tolerating cefepime Full Code PLAN: Continue IV cefepime and Flagyl d# 24 / ( SP vancomycin d# 7 ) outpt HCV Rx eval Monitor liver function tests Monitor CBC and BMP wound care Subjective Constitutional: Denies: anorexia, chills, drenching sweats, fatigue, fever, no symptoms, other Allergies: Coded Allergies: PENICILLINS (Verified Allergy, Unknown, 02/10/17) Subjective comfortable Objective Vital Signs Last 24 Hour Vital Signs Date Time Temp Pulse Resp B/P Pulse Ox O2 Delivery O2 Flow Rate FiO2 03/05/17 08:47 79 149/82 03/05/17 08:00 98.2 79 18 149/82 99 Room Air 03/05/17 04:00 98.8 80 18 141/91 98 Room Air 03/05/17 00:00 98.2 74 20 139/75 100 Room Air 03/04/17 20:00 99.2 81 19 151/87 96 Room Air 03/04/17 17:59 88 162/87 03/04/17 15:38 98.2 88 23 162/87 97 Room Air 03/04/17 15:21 167/78 03/04/17 11:36 98.1 77 21 137/78 97 Room Air Height (Feet): 6 Height (Inches): 3.00 Weight (Pounds): 245 HEENT: anicteric Respiratory/Chest: no respiratory distress Cardiovascular: normal rate Abdomen: no organomegaly Current Medications Medications (Trade) Dose Ordered Sig/Sharla Route PRN Reason Start Time Stop Time Status Last Admin Dose Admin Acetaminophen (Tylenol) 650 mg Q4H PRN ORAL T>100.5 02/11/17 19:30 03/13/17 19:29 03/02/17 04:01 Acetaminophen/ Hydrocodone Bitart ([place] [address]) 1 ea Q4H PRN ORAL Moderate Pain (Pain Scale 4-6) 03/02/17 18:00 03/09/17 17:59 03/02/17 18:22 Amlodipine Besylate (Norvasc) 5 mg BID ORAL 02/16/17 18:00 03/18/17 17:59 03/05/17 08:47 Ascorbic Acid 500 mg 500 mg DAILY ORAL 02/17/17 09:00 03/19/17 08:59 03/05/17 08:44 Bisacodyl (Dulcolax) 10 mg DAILYPRN PRN RECTAL Constipation 02/13/17 12:15 03/15/17 12:14 02/13/17 13:30 Cefepime HCl/ Dextrose (Maxipime/D5W) 110 ml @ 220 mls/hr Q12HR IV 02/19/17 21:00 03/10/17 20:59 03/05/17 08:44 Chlorhexidine Gluconate (Chastity-Hex 2%) 1 applic DAILY TOPIC 02/20/17 23:00 03/22/17 22:59 03/05/17 08:44 Clonidine HCl (Catapres) 0.1 mg Q4H PRN ORAL SBP > 160 02/11/17 19:30 03/13/17 19:29 03/04/17 15:21 Dextrose (Dextrose 50%) STAT PRN IV Hypoglycemia 02/11/17 19:30 03/13/17 19:29 Folic Acid (Folate) 1 mg DAILY ORAL 03/01/17 09:00 03/31/17 08:59 03/05/17 08:47 Heparin Sodium (Porcine) (Heparin 5000 units/ml) 5,000 units EVERY 12 HOURS SUBQ 02/11/17 21:00 03/13/17 20:59 03/05/17 08:46 Methadone HCl (Methadone HCl) 80 mg DAILY ORAL 03/03/17 09:00 04/02/17 08:59 03/05/17 08:47 Metronidazole (Flagyl) 100 ml @ 100 mls/hr Q6H IVPB 02/11/17 22:00 03/09/17 21:59 03/05/17 04:16 Morphine Sulfate (Morphine Sulfate) 2 mg Q4H PRN IVP Severe Pain (Pain Scale 7-10) 03/02/17 22:00 03/09/17 21:59 03/04/17 02:35 Multivitamins (Multivitamins) 1 tab DAILY ORAL 02/17/17 09:00 03/19/17 08:59 03/05/17 08:44 Nitroglycerin (Ntg) 0.4 mg Q5M PRN SL Prn Chest Pain 02/11/17 19:15 03/13/17 19:14 Ondansetron HCl (Zofran) 4 mg Q6H PRN IVP Nausea & Vomiting 02/11/17 19:30 03/13/17 19:29 Polyethylene Glycol (Miralax) 17 gm DAILYPRN PRN ORAL Constipation 02/11/17 19:30 03/13/17 19:29 02/26/17 17:54 Thiamine HCl (Vitamin B1) 100 mg DAILY ORAL 03/01/17 09:00 03/31/17 08:59 03/05/17 08:46 YODIT CASTAÑEDA M.D. Mar 05, 2017 09:35
[2017-03-05] MEDS ORDERED: HEPARIN SO5000 UNIT2 SUBQ ×3 (10:18→11:57)
[2017-03-05] MEDS ORDERED: LEVETIRACETAM500 MG ORAL (10:27)
[2017-03-05] MEDS ORDERED: ACETAMINOPHEN325 M1 ORAL ×2 (10:34→11:57)
[2017-03-05] MEDS ORDERED: ASCORBIC ACID500 M4 ORAL (11:57)
[2017-03-05] MEDS ORDERED: CEFEPIME-D2 GM/50 ML IVPB (11:57)
[2017-03-05] MEDS ORDERED: HYDROCODON-ACE1 EA13 ORAL (11:57)
[2017-03-05] MEDS ORDERED: NORVASC5 MG ORAL (11:57)
[2017-03-05 12:00] VITALS: BP 142/88
[2017-03-05] MEDS ORDERED: FLAGY IVPB (12:04)
[2017-03-05] MEDS ORDERED: NS 550ML IV ONE (12:56)
[2017-03-05] MEDS ORDERED: NS 275ml ONE (12:56)
--- NOTE | 2017-03-05 15:09 | General Progress Note ---
Assessment/Plan Status: stable Assessment/Plan status: Renal Failure : Acute vs Chronic Cr lower Sepsis Cellulitis : bilateral lower extremity cellulitis, athletic foot, and possible right foot osteomyelitis. Gangrene Urine positive for Cocaine Anemia Proteinuria , HypoAlbuminemia Plan: Stable from renal stand BP control- Monitor renal parameters Urine studies 2D echo : Left ventricular ejection fraction estimated to be 60 %. antibiotics and skin care ? DC planning? Placement issue. Subjective Date patient seen: Mar 05, 2017 Time patient seen: 09:00 ROS Limited/Unobtainable: No Allergies: Coded Allergies: PENICILLINS (Verified Allergy, Unknown, 02/10/17) Objective Last 24 Hour Vital Signs Date Time Temp Pulse Resp B/P Pulse Ox O2 Delivery O2 Flow Rate FiO2 03/05/17 12:00 98.2 78 18 142/88 98 Room Air 03/05/17 08:47 79 149/82 03/05/17 08:00 98.2 79 18 149/82 99 Room Air 03/05/17 04:00 98.8 80 18 141/91 98 Room Air 03/05/17 00:00 98.2 74 20 139/75 100 Room Air 03/04/17 20:00 99.2 81 19 151/87 96 Room Air 03/04/17 17:59 88 162/87 03/04/17 15:38 98.2 88 23 162/87 97 Room Air 03/04/17 15:21 167/78 Intake and Output 03/04/17 03/05/17 19:00 07:00 Intake Total 1510 ml 310 ml Output Total 1300 ml 650 ml Balance 210 ml -340 ml Intake Oral 1200 ml IV Total 310 ml 310 ml Output Urine Total 1300 ml 650 ml # Voids 5 2 # Bowel Movements 1 Height (Feet): 6 Height (Inches): 3.00 Weight (Pounds): 245 General Appearance: no apparent distress Objective PE no change MART MOREIRA Mar 05, 2017 15:09
--- NOTE | 2017-03-05 15:43 | Pulmonology Progress Note ---
Assessment/Plan Problems: (1) Sepsis (2) Gangrene (3) Liver cirrhosis (4) Coagulopathy (5) Hepatitis C (6) Drug abuse (7) Homelessness Assessment/Plan iv abx check labs periodically no new events all notes reviewed dc planning in process dc to [place] with IV antibiotics for 18 days. Subjective ROS Limited/Unobtainable: No Allergies: Coded Allergies: PENICILLINS (Verified Allergy, Unknown, 02/10/17) Objective Last 24 Hour Vital Signs Date Time Temp Pulse Resp B/P Pulse Ox O2 Delivery O2 Flow Rate FiO2 03/05/17 12:00 98.2 78 18 142/88 98 Room Air 03/05/17 08:47 79 149/82 03/05/17 08:00 98.2 79 18 149/82 99 Room Air 03/05/17 04:00 98.8 80 18 141/91 98 Room Air 03/05/17 00:00 98.2 74 20 139/75 100 Room Air 03/04/17 20:00 99.2 81 19 151/87 96 Room Air 03/04/17 17:59 88 162/87 Intake and Output 03/04/17 03/05/17 19:00 07:00 Intake Total 1510 ml 310 ml Output Total 1300 ml 650 ml Balance 210 ml -340 ml Intake Oral 1200 ml IV Total 310 ml 310 ml Output Urine Total 1300 ml 650 ml # Voids 5 2 # Bowel Movements 1 Objective General Appearance: WD/WN HEENT: normocephalic Respiratory/Chest: chest wall non-tender, lungs clear Cardiovascular: normal peripheral pulses, regular rhythm Abdomen: normal bowel sounds, soft, non tender Genitourinary: normal external genitalia Extremities: no cyanosis, clean dressing on feet RASHAAD GALLAGHER Mar 05, 2017 15:43
--- NOTE | 2017-03-06 13:38 | Discharge Summary ---
Discharge Summary Hospital Course Date of Admission February 10, 2017 at 03:37 Date of Discharge Mar 05, 2017 at 12:57 Admitting Diagnosis SEPSIS/GANGRENE HPI Cy Grewal is a 61 year old male who was admitted on February 10, 2017 at 03: 37 for Sepsis/Gangrene Hospital Course [id number] Discharge Discharge Disposition Patient was discharged to SNF/Subacute Facility(03) Discharge Diagnoses: Xiao Mejía NP Mar 06, 2017 13:38
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
== END 2017-03-05 12:57 | DRG 710 ==
LOC: EDBD 01:16 → EMR 01:25 → EDBEDREQ 02:57 → 2E 03:37 → EDBEDREQ 05:00 → 4E 02-11 18:50
PROC: 0J9R3ZZ Drainage of Left Foot Subcutaneous Tissue and Fascia, Percutaneous Approach (ICD-10-PCS; principal; 2017-02-11)
PROC: 0JDQ3ZZ Extraction of Right Foot Subcutaneous Tissue and Fascia, Percutaneous Approach (ICD-10-PCS; 2017-02-11)
PROC: 0J9Q3ZZ Drainage of Right Foot Subcutaneous Tissue and Fascia, Percutaneous Approach (ICD-10-PCS; 2017-02-11)
PROC: 0JDR3ZZ Extraction of Left Foot Subcutaneous Tissue and Fascia, Percutaneous Approach (ICD-10-PCS; 2017-02-11)
PROC: 0HDRXZZ Extraction of Toe Nail, External Approach (ICD-10-PCS; 2017-02-11)
PROC: 0HBRXZZ Excision of Toe Nail, External Approach (ICD-10-PCS; 2017-02-11)
PROC: 0HBRXZZ Excision of Toe Nail, External Approach (ICD-10-PCS; 2017-02-11)
PROC: 0HBRXZZ Excision of Toe Nail, External Approach (ICD-10-PCS; 2017-02-11)
PROC: 0HBRXZZ Excision of Toe Nail, External Approach (ICD-10-PCS; 2017-02-11)
PROC: 0HBRXZZ Excision of Toe Nail, External Approach (ICD-10-PCS; 2017-02-11)
PROC: 0HBRXZZ Excision of Toe Nail, External Approach (ICD-10-PCS; 2017-02-11)
PROC: 0HBRXZZ Excision of Toe Nail, External Approach (ICD-10-PCS; 2017-02-11)
PROC: 0HBRXZZ Excision of Toe Nail, External Approach (ICD-10-PCS; 2017-02-11)
PROC: 0HBRXZZ Excision of Toe Nail, External Approach (ICD-10-PCS; 2017-02-11)
DX: A41.9 Sepsis, unspecified organism (principal); I96 Gangrene, not elsewhere classified; N17.9 Acute kidney failure, unspecified; L03.115 Cellulitis of right lower limb; M86.171 Other acute osteomyelitis, right ankle and foot; E88.09 Other disorders of plasma-protein metabolism, not elsewhere classified; K74.60 Unspecified cirrhosis of liver; L03.116 Cellulitis of left lower limb; B35.1 Tinea unguium; D64.9 Anemia, unspecified; I12.9 Hypertensive chronic kidney disease with stage 1 through stage 4 chronic kidney disease, or unspecified chronic kidney disease; F14.90 Cocaine use, unspecified, uncomplicated; Z59.0 Homelessness; R74.0 Nonspecific elevation of levels of transaminase and lactic acid dehydrogenase [LDH]; B19.20 Unspecified viral hepatitis C without hepatic coma; G62.9 Polyneuropathy, unspecified; R80.9 Proteinuria, unspecified; N18.9 Chronic kidney disease, unspecified; L97.829 Non-pressure chronic ulcer of other part of left lower leg with unspecified severity; L97.819 Non-pressure chronic ulcer of other part of right lower leg with unspecified severity
CPT/HCPCS: 36415; 36569; 71010; 76700; 76937; 80048; 80053; 80061; 80202; 80300; 81003; 82248; 82270; 82378; 82550; 82607; 82746; 82977; 83540; 83550; 83605; 83615; 83735; 83880; 84100; 84300; 84443; 84484; 84550; 85007; 85025; 85044; 85060; 85610; 85651; 85730; 86140; 86703; 86705; 86709; 86803; 87040; 87070; 87075; 87081; 87181; 87205; 87340; 87522; 89050; 93005; 93306; 93925; 93970; 93971; 94664; J2405

== ENCOUNTER 2017-04-14 21:25 | Inpatient (IN) | payer OTHER ==
[~2017-04-14] VITALS: Ht 190.5 cm; Wt 92.1 kg
[~2017-04-14 21:25] MED LIST changes: +ACETAMINOPHEN325 M1 ORAL; +ASCORBIC ACID500 M4 ORAL; +CEFEPIME-D2 GM/50 ML IVPB; +D5 1/2NS 1,000 ML IV SCH; +FLAGY IVPB; +HEPARIN SO5000 UNIT2 SUBQ; +HYDROCODON-ACE1 EA13 ORAL; +LEVETIRACETAM500 MG ORAL; -Morphine Sulfate 4mg/ml Inj IVP ONE; +NKM; +NORVASC5 MG ORAL; -Vancomycin 1.5gm/D5W 300ml 325 ML IVPB ONE; -metroNIDAZOLE 500mg 100 ML IV SCH
[2017-04-14 21:34] VITALS: BP 138/71
--- NOTE | 2017-04-14 22:16 | Emergency Room Report ---
History of Present Illness General Chief Complaint: Headache Source: Medical Record, EMS Present Illness HPI 61YOM BIBEMS with 4 days intermittent frontal headache. No assoc nausea/ vomiting, fever/chills, neck pain/stiffness. Assoc with slurred speech for 4 days as well. 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 " Denies acute extremity weakness, difficulty ambulating, dizziness. PMHx: Hep C, "kidney failure." Allergies: Coded Allergies: PENICILLINS (Verified Allergy, Unknown, 02/10/17) Patient History Past Medical History: HTN, other - ICH Past Surgical History: none Pertinent Family History: none Immunizations: UTD Reviewed Nursing Documentation: PMH: Agreed, PSxH: Agreed Nursing Documentation-PMH Hx Hypertension: Yes Review of Systems All Other Systems: negative except mentioned in HPI Physical Exam Vital Signs Date Time Temp Pulse Resp B/P Pulse Ox O2 Delivery O2 Flow Rate FiO2 04/14/17 21:17 98.4 75 16 134/80 99 04/14/17 21:34 Room Air Sp02 EP Interpretation: reviewed, normal General Appearance: normal inspection, well appearing, no apparent distress, alert, GCS 15, non-toxic Head: normocephalic, atraumatic Eyes: bilateral eye EOMI, bilateral eye PERRL ENT: normal ENT inspection, hearing grossly normal, normal voice Neck: normal inspection, full range of motion, supple, no bony tend Respiratory: normal inspection, lungs clear, normal breath sounds, no respiratory distress, no retraction, no wheezing Gastrointestinal: normal inspection, normal bowel sounds, non tender, soft, no guarding, no hernia Genitourinary: no CVA tenderness Musculoskeletal: normal inspection, back normal, normal range of motion, Gita' s Sign negative Neurologic: normal inspection, alert, oriented x3, responsive, motor strength/ tone normal, other - slurred speech Psychiatric: normal inspection, judgement/insight normal, mood/affect normal Skin: normal inspection, normal color, no rash, warm/dry Medical Decision Making Diagnostic Impression: Primary Impression: Headache Qualified Codes: G44.209 - Tension-type headache, unspecified, not intractable Additional Impressions: Slurred speech Elevated LFTs ER Course Headache, slurred speech - VSS. Afebrile. - +slurred speech - No acute focal neuro deficits - CT head: ?asymmetric increase in ant left morales radiata region, ?acute vs chronic. - Headache resolved with tylenol. Low suspicion for HTN urgency given normotensive. Likely tension headache. - Labs: No leuks. H&H stable. - ECG shows previously seen TWI in inferior/lateral leads - Elevated LFTs. History of hepatitis/cirrhosis? Will HOLD on ASA for CVA until MRI done given questionable finding on CT by radiologist Admitted for secondary stroke management to Dr Hagan at 1106pm Tele bed EKG Diagnostic Results Rate: normal Rhythm: NSR ST Segments: other - TWI in lateral and inferior leads seen in February 2017 visit Rhythm Strip Diag. Results EP Interpretation: yes Rate: 74 Rhythm: NSR, no PVC's, no ectopy Last Vital Signs Date Time Temp Pulse Resp B/P Pulse Ox O2 Delivery O2 Flow Rate FiO2 04/14/17 21:34 98.4 74 21 138/71 100 Room Air Status: improved Disposition: ADMITTED INPATIENT Condition: Serious NOMI ELLINGTON M.D. Apr 14, 2017 22:16
[2017-04-14] MEDS ORDERED: ATORVASTATIN CA40 MG ORAL (22:42)
[2017-04-14] MEDS ORDERED: PANTOPRAZOLE SO40 MG ORAL (22:44)
[2017-04-14] MEDS ORDERED: IBUPROFEN600 MG ORAL (22:44)
[2017-04-14] MEDS ORDERED: LISINOPRIL10 MG ORAL (22:44)
[2017-04-14] MEDS ORDERED: CARVEDILOL3.125 MG ORAL (22:44)
[2017-04-14 22:54] LABS: MEAN CORPUSCULAR HEMOGLOBIN 36.5 PG (27.0-31.0); MEAN CORPUSCULAR HGB CONC 37.1 G/DL (32.0-36.0); MEAN CORPUSCULAR VOLUME 98 FL (80-99); MEAN PLATELET VOLUME 9.7 FL (6.5-10.1); PLATELET COUNT 118 K/UL (150-450); RED BLOOD COUNT 3.12 M/UL (4.70-6.10); WHITE BLOOD COUNT 5.9 K/UL (4.8-10.8)
[2017-04-14 23:07] LABS: TROPONIN I < 0.30 ng/mL (<=0.30)
[2017-04-14 23:10] LABS: ALANINE AMINOTRANSFERASE 149 U/L (3-41); ALBUMIN/GLOBULIN RATIO 0.5 (1.0-2.7); ANION GAP 10 (5-15); ASPARTATE AMINO TRANSFERASE 268 U/L (5-40); CARBON DIOXIDE 23 mEQ/L (20-30); CHLORIDE 109 mEQ/L (98-107); GLOMERULAR FILTRATION RATE > 60 mL/min (>60); HEMOLYSIS 3; POTASSIUM 3.6 mEQ/L (3.4-4.9); SODIUM 142 mEQ/L (135-145); TOTAL PROTEIN 8.4 g/dL (6.6-8.7)
[2017-04-14] MEDS ORDERED: Nitroglycerin Subl 0.4mg tab (Bottle Of 25) SL PRN (23:15)
[2017-04-14] MEDS ORDERED: DuoNeb 0.5-3(2.5)mg/3ml neb HHN PRN (23:15)
[2017-04-14] MEDS ORDERED: LORazepam Inj 2mg/ml 1ml IV PRN (23:15)
[2017-04-14] MEDS ORDERED: Miralax 17gm pkt ORAL PRN (23:15)
[2017-04-14] MEDS ORDERED: Mylanta II UD 30ml ORAL PRN (23:15)
[2017-04-14] MEDS ORDERED: Morphine Sulfate 2mg/ml Inj IVP PRN (23:15)
[2017-04-14] MEDS ORDERED: Promethazine/Codeine 5ml UD ORAL PRN (23:15)
[2017-04-14 23:19] LABS: ANISOCYTOSIS 1+; BAND NEUTROPHILS % (MANUAL) 0 % (0-8); BASOPHILS % (MANUAL) 1 % (0-2); EOSINOPHILS % (MANUAL) 2 % (0-3); HYPOCHROMASIA 1+; LYMPHOCYTES % (MANUAL) 35 % (20-45); NEUTROPHILS % (MANUAL) 55 % (45-75); PLATELET ESTIMATE DECREASED; PLATELET MORPHOLOGY NORMAL; TOTAL CELLS COUNTED 100
[2017-04-14 23:20] LABS: CKMB 2.5 ng/mL (< 6.7)
[2017-04-14 23:27] VITALS: BP 145/81
[2017-04-15 00:38] VITALS: BP 141/72
[2017-04-15 04:00] VITALS: BP 148/83
[2017-04-15 07:55] VITALS: BP 152/87
[2017-04-15 08:00] LABS: MEAN CORPUSCULAR HEMOGLOBIN 33.9 PG (27.0-31.0); MEAN CORPUSCULAR HGB CONC 34.2 G/DL (32.0-36.0); MEAN CORPUSCULAR VOLUME 99 FL (80-99); PLATELET COUNT 126 K/UL (150-450); RED BLOOD COUNT 3.27 M/UL (4.70-6.10); RED CELL DISTRIBUTION WIDTH 12.2 % (11.6-14.8); WHITE BLOOD COUNT 5.1 K/UL (4.8-10.8)
[2017-04-15 08:06] LABS: ALANINE AMINOTRANSFERASE 155 U/L (3-41); ALBUMIN/GLOBULIN RATIO 0.6 (1.0-2.7); ANION GAP 10 (5-15); ASPARTATE AMINO TRANSFERASE 277 U/L (5-40); CALCIUM 8.9 mg/dL (8.6-10.2); CARBON DIOXIDE 22 mEQ/L (20-30); CHLORIDE 108 mEQ/L (98-107); CHOLESTEROL 138 mg/dL (< 200); CHOLESTEROL/HDL RATIO 2.4 (3.3-4.4); CREATININE 0.9 mg/dL (0.7-1.2); GLOMERULAR FILTRATION RATE > 60 mL/min (>60); HEMOLYSIS 3; LDL CHOLESTEROL (CALC.) 60 mg/dL (60-99); POTASSIUM 3.6 mEQ/L (3.4-4.9); SODIUM 140 mEQ/L (135-145)
[2017-04-15 08:08] LABS: PATH BLOOD SMEAR/OMC SENT TO PATHOLOGIST
[2017-04-15 08:10] LABS: HEMOLYSIS 2; INR 1.2 (0.9-1.1); IRON 133 ug/dL (59-158); PROTHROMBIN TIME 12.2 SEC (9.30-11.50); TOTAL IRON BINDING CAPACITY 245 ug/dL (250-400)
[2017-04-15 08:16] LABS: THYROID STIMULATING HORMONE 0.529 uIU/mL (0.300-4.500)
[2017-04-15 08:54] LABS: LACTATE DEHYDROGENASE 269 U/L (135-230)
[2017-04-15] MEDS ORDERED: Lisinopril 10mg tab ORAL SCH (09:00)
[2017-04-15] MEDS ORDERED: Heparin 5000 units/ml inj SUBQ SCH (09:00)
[2017-04-15 09:11] LABS: ERYTHROCYTE SEDIMENTATION RATE 106 MM/HR (0-20)
--- NOTE | 2017-04-15 09:55 | Diagnostic Imaging Report ---
Indications: Headache Technique: Spiral acquisitions obtained through the brain. Angled axial and coronal 5 x 5 mm slices were reconstructed. Total dose length product 1390 mGycm. CTDI vol(s) 70 mGy. Dose reduction achieved using automated exposure control Comparison: None Findings: There is periventricular deep white matter chronic ischemic change. There is minimal age-related enlargement of the ventricles and extra-axial CSF spaces. There is a small right parietal scalp hematoma demonstrated. The calvarium is intact. The sinuses are clear. The mastoids are clear. No acute hemorrhage or edema. No mass effect or midline shift. Normal barajas-white differentiation otherwise. Impression: Chronic and age-related changes. Negative for acute intracranial bleed or mass effect This agrees with the preliminary interpretation provided overnight by Dr. Valderrama The CT scanner at [facility] is accredited by the [employer] and the scans are performed using protocols designed to limit radiation exposure to as low as reasonably achievable to attain images of sufficient resolution adequate for diagnostic evaluation.
[2017-04-15 10:02] LABS: BAND NEUTROPHILS % (MANUAL) 0 % (0-8); BASOPHILS % (MANUAL) 0 % (0-2); EOSINOPHILS % (MANUAL) 1 % (0-3); HYPOCHROMASIA 1+; LYMPHOCYTES % (MANUAL) 74 % (20-45); NEUTROPHILS % (MANUAL) 18 % (45-75); PLATELET ESTIMATE DECREASED; TOTAL CELLS COUNTED 100
[2017-04-15 10:03] LABS: ANISOCYTOSIS 1+; PLATELET MORPHOLOGY NORMAL
[2017-04-15 10:11] LABS: RETICULOCYTE COUNT 1.8 % (0.0-2.0)
[2017-04-15 11:25] VITALS: BP 146/80
--- NOTE | 2017-04-15 11:36 | Neurology Progress Note ---
Objective Physical Exam Last Vital Signs Date Time Temp Pulse Resp B/P Pulse Ox O2 Delivery O2 Flow Rate FiO2 04/15/17 11:25 98.1 55 20 146/80 100 Room Air Laboratory Tests Test 04/14/17 22:40 04/15/17 07:15 04/15/17 09:20 White Blood Count 5.9 K/UL (4.8-10.8) 5.1 K/UL (4.8-10.8) Red Blood Count 3.12 M/UL (4.70-6.10) L 3.27 M/UL (4.70-6.10) L Hemoglobin 11.4 G/DL (14.2-18.0) L 11.1 G/DL (14.2-18.0) L Hematocrit 30.6 % (42.0-52.0) L 32.4 % (42.0-52.0) L Mean Corpuscular Volume 98 FL (80-99) 99 FL (80-99) Mean Corpuscular Hemoglobin 36.5 PG (27.0-31.0) H 33.9 PG (27.0-31.0) H Mean Corpuscular Hemoglobin Concent 37.1 G/DL (32.0-36.0) H 34.2 G/DL (32.0-36.0) Red Cell Distribution Width 12.0 % (11.6-14.8) 12.2 % (11.6-14.8) Platelet Count 118 K/UL (150-450) L 126 K/UL (150-450) L Mean Platelet Volume 9.7 FL (6.5-10.1) 8.0 FL (6.5-10.1) Neutrophils (%) (Auto) % (45.0-75.0) % (45.0-75.0) Lymphocytes (%) (Auto) % (20.0-45.0) % (20.0-45.0) Monocytes (%) (Auto) % (1.0-10.0) % (1.0-10.0) Eosinophils (%) (Auto) % (0.0-3.0) % (0.0-3.0) Basophils (%) (Auto) % (0.0-2.0) % (0.0-2.0) Differential Total Cells Counted 100 100 Neutrophils % (Manual) 55 % (45-75) 18 % (45-75) L Lymphocytes % (Manual) 35 % (20-45) 74 % (20-45) H Monocytes % (Manual) 7 % (1-10) 7 % (1-10) Eosinophils % (Manual) 2 % (0-3) 1 % (0-3) Basophils % (Manual) 1 % (0-2) 0 % (0-2) Band Neutrophils 0 % (0-8) 0 % (0-8) Platelet Estimate Decreased L Decreased L Platelet Morphology Normal Normal Hypochromasia 1+ 1+ Anisocytosis 1+ 1+ Sodium Level 142 mEQ/L (135-145) 140 mEQ/L (135-145) Potassium Level 3.6 mEQ/L (3.4-4.9) 3.6 mEQ/L (3.4-4.9) Chloride Level 109 mEQ/L (98-107) H 108 mEQ/L (98-107) H Carbon Dioxide Level 23 mEQ/L (20-30) 22 mEQ/L (20-30) Anion Gap 10 (5-15) 10 (5-15) Blood Urea Nitrogen 12 mg/dL (7-23) 11 mg/dL (7-23) Creatinine 1.0 mg/dL (0.7-1.2) 0.9 mg/dL (0.7-1.2) Estimat Glomerular Filtration Rate > 60 mL/min (>60) > 60 mL/min (>60) Glucose Level 136 mg/dL (74-106) H 162 mg/dL (74-106) H Calcium Level 9.0 mg/dL (8.6-10.2) 8.9 mg/dL (8.6-10.2) Total Bilirubin 0.4 mg/dL (0.0-1.2) 0.5 mg/dL (0.0-1.2) Aspartate Amino Transf (AST/SGOT) 268 U/L (5-40) H 277 U/L (5-40) H Alanine Aminotransferase (ALT/SGPT) 149 U/L (3-41) H 155 U/L (3-41) H Alkaline Phosphatase 164 U/L (40-129) H 130 U/L (40-129) H Total Creatine Kinase 127 U/L (38-174) Creatine Kinase MB 2.5 ng/mL (< 6.7) Creatine Kinase MB Relative Index 1.9 Troponin I < 0.30 ng/mL (<=0.30) Total Protein 8.4 g/dL (6.6-8.7) 8.0 g/dL (6.6-8.7) Albumin 3.1 g/dL (3.5-5.2) L 3.0 g/dL (3.5-5.2) L Globulin 5.3 g/dL 5.0 g/dL Albumin/Globulin Ratio 0.5 (1.0-2.7) L 0.6 (1.0-2.7) L Red Blood Cell Morphology Erythrocyte Sedimentation Rate 106 MM/HR (0-20) H Reticulocyte Count 1.8 % (0.0-2.0) Prothrombin Time 12.2 SEC (9.30-11.50) H Prothromb Time International Ratio 1.2 (0.9-1.1) H Activated Partial Thromboplast Time 33 SEC (23-33) Iron Level 133 ug/dL (59-158) Total Iron Binding Capacity 245 ug/dL (250-400) L Percent Iron Saturation 54 % (15-50) H Unsaturated Iron Binding 112 ug/dL (112-346) Ammonia 112 umol/L (16-60) H Lactate Dehydrogenase 269 U/L (135-230) H Triglycerides Level 99 mg/dL (< 150) Cholesterol Level 138 mg/dL (< 200) LDL Cholesterol 60 mg/dL (60-99) HDL Cholesterol 58 mg/dL (> 60) Cholesterol/HDL Ratio 2.4 (3.3-4.4) L Carcinoembryonic Antigen 7.0 ng/mL H Vitamin B12 Level 393 pg/mL (211-946) Folate Pending Thyroid Stimulating Hormone (TSH) 0.529 uIU/mL (0.300-4.500) Stool Occult Blood Pending Impression/Recommendations Recommendations #[id number] YESENIA RIVERA Apr 15, 2017 11:36
--- NOTE | 2017-04-15 11:47 | History and Physical ---
History of Present Illness General Date patient seen: Apr 15, 2017 Reason for Hospitalization: Headache Present Illness HPI 61 year old male with hx of HTN, chronic liver disease, osteomyelitis, senior care resident, previously homeless. [place] [facility] [place] of slurred speech and uncontrolled htn. Pt is feeling better now. Allergies: Coded Allergies: PENICILLINS (Verified Allergy, Unknown, 02/10/17) Medication History Scheduled Amlodipine Besylate (Norvasc), 5 MG ORAL BID Ascorbic Acid* (Ascorbic Acid*), 500 MG ORAL DAILY Atorvastatin Calcium* (Atorvastatin Calcium*), 40 MG ORAL BEDTIME, (Reported) Carvedilol* (Carvedilol*), 3.125 MG ORAL EVERY 12 HOURS, (Reported) Cefepime Hcl/D5w (Cefepime-Dextrose 2 Gm/50 Ml), 2 GM IVPB EVERY 12 HOURS Heparin Sod (Porcine) (Heparin Sodium*), 5,000 UNITS SUBQ EVERY 12 HOURS Lisinopril* (Lisinopril*), 10 MG ORAL DAILY, (Reported) No Known Medications* (NKM - No Known Medications*), 0 ., (Reported) Pantoprazole* (Pantoprazole*), 40 MG ORAL DAILY, (Reported) [flagy iv], 500 AMP IVPB EVERY 8 HOURS Scheduled PRN Acetaminophen* (Acetaminophen 325MG Tablet*), 650 MG ORAL Q4H PRN Hydrocodone Bit/Acetaminophen 10-325* (Hydrocodon-Acetaminophn 10-325*), 1 EA ORAL Q4H PRN Ibuprofen* (Motrin*), 600 MG ORAL Q8H PRN for For Pain, (Reported) Patient History Healthcare decision maker Resuscitation status Full Code Advanced Directive on File Past Medical/Surgical History Past Medical/Surgical History: (1) Liver cirrhosis (2) Hepatitis C (3) Osteomyelitis of foot, right, acute Review of Systems All Other Systems: negative except mentioned in HPI Physical Exam General Appearance: WD/WN Lines, tubes and drains: peripheral HEENT: normocephalic, atraumatic Neck: non-tender, normal alignment Respiratory/Chest: chest wall non-tender, lungs clear Breasts: no masses Cardiovascular/Chest: normal peripheral pulses, normal rate Abdomen: normal bowel sounds, non tender Genitourinary/Rectal: normal genital exam, normal rectal exam Extremities: normal range of motion, non-tender Skin Exam: normal pigmentation 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: systems navigator II-XII grossly normal Lymphatic: anterior cervical Last 24 Hour Vital Signs Date Time Temp Pulse Resp B/P Pulse Ox O2 Delivery O2 Flow Rate FiO2 04/15/17 11:25 98.1 55 20 146/80 100 Room Air 04/15/17 09:48 66 20 Room Air 04/15/17 08:11 152/87 04/15/17 08:10 72 152/87 04/15/17 08:10 72 152/87 04/15/17 08:00 78 04/15/17 07:55 98.1 72 20 152/87 95 Room Air 04/15/17 04:00 97.5 18 20 148/83 99 Room Air 04/15/17 04:00 64 04/15/17 00:38 98.8 62 20 141/72 100 Room Air 04/14/17 23:29 98.4 60 21 145/81 98 Room Air 04/14/17 23:27 98.4 60 21 145/81 98 Room Air 04/14/17 21:34 98.4 74 21 138/71 100 Room Air 04/14/17 21:17 98.4 75 16 134/80 99 Intake and Output 04/14/17 04/15/17 19:00 07:00 Output Total 500 ml Balance -500 ml Output Urine Total 500 ml Laboratory Tests Test 04/14/17 22:40 04/15/17 07:15 04/15/17 09:20 White Blood Count 5.9 K/UL (4.8-10.8) 5.1 K/UL (4.8-10.8) Red Blood Count 3.12 M/UL (4.70-6.10) L 3.27 M/UL (4.70-6.10) L Hemoglobin 11.4 G/DL (14.2-18.0) L 11.1 G/DL (14.2-18.0) L Hematocrit 30.6 % (42.0-52.0) L 32.4 % (42.0-52.0) L Mean Corpuscular Volume 98 FL (80-99) 99 FL (80-99) Mean Corpuscular Hemoglobin 36.5 PG (27.0-31.0) H 33.9 PG (27.0-31.0) H Mean Corpuscular Hemoglobin Concent 37.1 G/DL (32.0-36.0) H 34.2 G/DL (32.0-36.0) Red Cell Distribution Width 12.0 % (11.6-14.8) 12.2 % (11.6-14.8) Platelet Count 118 K/UL (150-450) L 126 K/UL (150-450) L Mean Platelet Volume 9.7 FL (6.5-10.1) 8.0 FL (6.5-10.1) Neutrophils (%) (Auto) % (45.0-75.0) % (45.0-75.0) Lymphocytes (%) (Auto) % (20.0-45.0) % (20.0-45.0) Monocytes (%) (Auto) % (1.0-10.0) % (1.0-10.0) Eosinophils (%) (Auto) % (0.0-3.0) % (0.0-3.0) Basophils (%) (Auto) % (0.0-2.0) % (0.0-2.0) Differential Total Cells Counted 100 100 Neutrophils % (Manual) 55 % (45-75) 18 % (45-75) L Lymphocytes % (Manual) 35 % (20-45) 74 % (20-45) H Monocytes % (Manual) 7 % (1-10) 7 % (1-10) Eosinophils % (Manual) 2 % (0-3) 1 % (0-3) Basophils % (Manual) 1 % (0-2) 0 % (0-2) Band Neutrophils 0 % (0-8) 0 % (0-8) Platelet Estimate Decreased L Decreased L Platelet Morphology Normal Normal Hypochromasia 1+ 1+ Anisocytosis 1+ 1+ Sodium Level 142 mEQ/L (135-145) 140 mEQ/L (135-145) Potassium Level 3.6 mEQ/L (3.4-4.9) 3.6 mEQ/L (3.4-4.9) Chloride Level 109 mEQ/L (98-107) H 108 mEQ/L (98-107) H Carbon Dioxide Level 23 mEQ/L (20-30) 22 mEQ/L (20-30) Anion Gap 10 (5-15) 10 (5-15) Blood Urea Nitrogen 12 mg/dL (7-23) 11 mg/dL (7-23) Creatinine 1.0 mg/dL (0.7-1.2) 0.9 mg/dL (0.7-1.2) Estimat Glomerular Filtration Rate > 60 mL/min (>60) > 60 mL/min (>60) Glucose Level 136 mg/dL (74-106) H 162 mg/dL (74-106) H Calcium Level 9.0 mg/dL (8.6-10.2) 8.9 mg/dL (8.6-10.2) Total Bilirubin 0.4 mg/dL (0.0-1.2) 0.5 mg/dL (0.0-1.2) Aspartate Amino Transf (AST/SGOT) 268 U/L (5-40) H 277 U/L (5-40) H Alanine Aminotransferase (ALT/SGPT) 149 U/L (3-41) H 155 U/L (3-41) H Alkaline Phosphatase 164 U/L (40-129) H 130 U/L (40-129) H Total Creatine Kinase 127 U/L (38-174) Creatine Kinase MB 2.5 ng/mL (< 6.7) Creatine Kinase MB Relative Index 1.9 Troponin I < 0.30 ng/mL (<=0.30) Total Protein 8.4 g/dL (6.6-8.7) 8.0 g/dL (6.6-8.7) Albumin 3.1 g/dL (3.5-5.2) L 3.0 g/dL (3.5-5.2) L Globulin 5.3 g/dL 5.0 g/dL Albumin/Globulin Ratio 0.5 (1.0-2.7) L 0.6 (1.0-2.7) L Red Blood Cell Morphology Erythrocyte Sedimentation Rate 106 MM/HR (0-20) H Reticulocyte Count 1.8 % (0.0-2.0) Prothrombin Time 12.2 SEC (9.30-11.50) H Prothromb Time International Ratio 1.2 (0.9-1.1) H Activated Partial Thromboplast Time 33 SEC (23-33) Iron Level 133 ug/dL (59-158) Total Iron Binding Capacity 245 ug/dL (250-400) L Percent Iron Saturation 54 % (15-50) H Unsaturated Iron Binding 112 ug/dL (112-346) Ammonia 112 umol/L (16-60) H Lactate Dehydrogenase 269 U/L (135-230) H Triglycerides Level 99 mg/dL (< 150) Cholesterol Level 138 mg/dL (< 200) LDL Cholesterol 60 mg/dL (60-99) HDL Cholesterol 58 mg/dL (> 60) Cholesterol/HDL Ratio 2.4 (3.3-4.4) L Carcinoembryonic Antigen 7.0 ng/mL H Vitamin B12 Level 393 pg/mL (211-946) Folate Pending Thyroid Stimulating Hormone (TSH) 0.529 uIU/mL (0.300-4.500) Stool Occult Blood Pending Height (Feet): 6 Height (Inches): 3.00 Weight (Pounds): 203 Medications Current Medications Medications (Trade) Dose Ordered Sig/Sharla Route PRN Reason Start Time Stop Time Status Last Admin Dose Admin Acetaminophen (Tylenol) 650 mg Q4H PRN ORAL fever 04/14/17 23:15 05/14/17 23:14 Al Hydroxide/Mg Hydroxide (Mylanta II) 30 ml Q6H PRN ORAL dyspepsia 04/14/17 23:15 05/14/17 23:14 Albuterol/ Ipratropium (DuoNeb 0.5-3(2.5)mg/3ml) 3 ml Q4H PRN HHN Shortness of Breath 04/14/17 23:15 04/19/17 23:14 Amlodipine Besylate (Norvasc) 5 mg BID ORAL 04/15/17 09:00 05/15/17 08:59 04/15/17 08:10 Carvedilol (Coreg) 3.125 mg EVERY 12 HOURS ORAL 04/15/17 09:00 05/15/17 08:59 04/15/17 08:10 Clonidine HCl (Catapres) 0.1 mg Q4H PRN ORAL For High Blood Pressure 04/14/17 23:15 05/14/17 23:14 Dextrose (Dextrose 50%) STAT PRN IV Hypoglycemia 04/14/17 23:15 05/14/17 23:14 Heparin Sodium (Porcine) (Heparin 5000 units/ml) 5,000 units EVERY 12 HOURS SUBQ 04/15/17 09:00 05/15/17 08:59 Lisinopril (Zestril) 10 mg DAILY ORAL 04/15/17 09:00 05/15/17 08:59 04/15/17 08:11 Lorazepam (Ativan 2mg/ml 1ml) 0.5 mg Q4H PRN IV For Anxiety 04/14/17 23:15 04/21/17 23:14 Morphine Sulfate (Morphine Sulfate) 1 mg Q4H PRN IVP For Pain 04-1304/14/17 23:15 04/21/17 23:14 Nitroglycerin (Ntg) 0.4 mg Q5M X 3 DOSES PRN SL Prn Chest Pain 04/14/17 23:15 05/14/17 23:14 Ondansetron HCl (Zofran) 4 mg Q6H PRN IVP Nausea & Vomiting 04/14/17 23:15 05/14/17 23:14 Polyethylene Glycol (Miralax) 17 gm HSPRN PRN ORAL Constipation 04/14/17 23:15 05/14/17 23:14 Promethazine HCl/ Codeine (Phenergan with Codeine) 5 ml Q4H PRN ORAL For Cough 04/14/17 23:15 05/14/17 23:14 Temazepam (Restoril) 15 mg HSPRN PRN ORAL Insomnia 04/14/17 23:15 04/21/17 23:14 Assessment/Plan Problem List: (1) Slurred speech ICD Codes: R47.81 - Slurred speech SNOMED: 516175605 (2) Coagulopathy ICD Codes: D68.9 - Coagulation defect, unspecified SNOMED: 47157610 (3) 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
--- NOTE | 2017-04-15 13:09 | Diagnostic Imaging Report ---
Indication: SOB Technique: One view of the chest Comparison: 02/10/2017 Findings: Equivocal minimal retrocardiac and left infrahilar opacity demonstrated. Lungs and pleural spaces are otherwise clear. Heart size is normal. Tortuous aorta. Impression: Questionable left basilar parenchymal disease, as described. Correlate with clinical findings
--- NOTE | 2017-04-15 14:08 | Diagnostic Imaging Report ---
Indication: 61-year-old male inpatient with altered metal status, headaches, slurred speech, left-sided weakness x2 days, history of prior CVA Technique: sagittal T1 fast spin echo, axial T1 FLAIR, axial T2 FLAIR, axial T2 FS PROPELLER, axial T2* GRE, axial diffusion weighted images. ADC and exponential ADC maps generated Comparison: Head CT dated 04/14/2017 Findings: Tiny focus of restricted diffusion is seen in the posterior left thalamus. Demonstrates slight T2 signal. Second tiny focus of restricted diffusion is seen in the white matter at the junction of the parietal, temporal, and occipital lobes. There may be a small associated T2 signal abnormality. Old lacunar infarct is seen in the left basal ganglia. Old lacunar infarcts are seen in the midbrain and ojhn on both sides of midline. Small focus of susceptibility artifact in the left midbrain is consistent with old microbleed. Large area of susceptibility artifact in the left frontal opercular region appears to be associated with some encephalomalacia, also consistent with old hemorrhage. This is not evident on prior CT other small foci of presumed prior microhemorrhage are seen in the right morales radiata, right posterior temporal lobe, left anterior parasagittal occipital lobe. There is extensive confluent bilateral T2 deep white matter hyper intensity.. No acute hemorrhage or edema. No mass effect nor midline shift. There is age-related enlargement of the ventricles and extra axial CSF spaces. Visualized orbits and sinuses are unremarkable. There is questionably decreased or absent flow void in the left vertebral artery Impression: 2 foci of restricted diffusion in the left posterior thalamus and left posterior convexity deep white matter, consistent with appearing infarcts. Suspect due to emboli to the left posterior cerebral artery distribution Area of old hemorrhage with associated encephalomalacia in the left frontal opercular region. Evidence of multiple old microbleeds bilaterally Other old lacunar infarcts, as described Chronic periventricular deep white matter ischemic change Age-related volume loss Equivocal loss of flow-void in the left vertebral artery, probably artifactual occlusion of this vessel not excludable. Consider MRA for further evaluation if clinically indicated Dr. Hagan notified at the time of interpretation
[2017-04-15] MEDS ORDERED: Nitroglycerin Subl 0.4mg tab (Bottle Of 25) SL PRN (14:15)
--- NOTE | 2017-04-15 14:35 | Cardiology Report ---
APPROVED REPORT EXAM: Two-dimensional and M-mode echocardiogram with Doppler and color Doppler. INDICATION LV function M-Mode DIMENSIONS IVSd1.4 (0.7-1.1cm)Left Atrium (MM)4.2 (1.6-4.0cm) LVDd4.7 (3.5-5.6cm)Aortic Root3.6 (2.0-3.7cm) PWd1.7 (0.7-1.1cm)Aortic Cusp Exc.2.3 (1.5-2.0cm) LVDs2.9 (2.5-4.0cm) PWs2.3 cm Normal left ventricular chamber size, systolic function and wall motion. Left ventricular ejection fraction estimated to be 60 %. Mild left ventricular hypertrophy. No evidence of pericardial effusion. Mild left atrial enlargement. Right atrial size at upper limits of normal. Right ventricular chamber size is within normal limits. Mild focal aortic valve sclerosis with adequate cusp excursion. Thickened mitral valve leaflets with normal excursion. Mitral annulus and aortic root calcification. Normal pulmonic valve structure. Normal tricuspid valve structure. IVC at normal size with physiologic collapse. A color flow and spectral Doppler study was performed and revealed: Trace aortic regurgitation. Trace to mild mitral regurgitation. Mitral inflow indicates normal left ventricular diastolic function. Mild tricuspid regurgitation. Tricuspid systolic velocities suggests peak right ventricular systolic pressure of 43 mmHg, consistent with mild pulmonary hypertension.
[2017-04-15] MEDS: Lactulose 20gm/30ml UDC ORAL SCH (14:49)
[2017-04-15] MEDS ORDERED: Promethazine/Codeine 5ml UD ORAL PRN (15:15)
[2017-04-15] MEDS ORDERED: LORazepam Inj 2mg/ml 1ml IV PRN (15:15)
[2017-04-15] MEDS ORDERED: DuoNeb 0.5-3(2.5)mg/3ml neb HHN PRN (15:15)
[2017-04-15 15:44] VITALS: BP 144/92
--- NOTE | 2017-04-15 16:51 | Cardiology Report ---
APPROVED REPORT EKG Measurement Heart [id number] [place] [id number] Normal sinus rhythm Moderate voltage criteria for LVH, may be normal variant T wave abnormality, consider inferolateral ischemia Abnormal ECG
[2017-04-15] MEDS ORDERED: Mylanta II UD 30ml ORAL PRN (17:15)
[2017-04-15 20:00] VITALS: BP 145/80
[2017-04-15] MEDS: Heparin 5000 units/ml inj SUBQ SCH (21:00)
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
--- NOTE | 2017-04-15 22:22 | Consultation ---
Consult Note Consult Note [id number] YODIT CASTAÑEDA M.D. Apr 15, 2017 22:22
[2017-04-15] MEDS: Morphine Sulfate 2mg/ml Inj IVP PRN (22:45)
[2017-04-15] MEDS ORDERED: Miralax 17gm pkt ORAL PRN (23:15)
--- NOTE | 2017-04-15 23:35 | Consultation ---
Consult Note Consult Note Patient with history of right hallux ulcer and osteo. Currently healed. Assessment/Plan Assessment: - Peripheral neuropathy - Onychomycosis - History of right hallux ulcer and osteo Plan: - Educated patient about neuropathic foot care - Will debride toenails Faheem Rubin DPM Apr 15, 2017 23:35
[2017-04-16] VITALS: BP 138/72
[2017-04-16 04:00] VITALS: BP 150/87
[2017-04-16 08:12] VITALS: BP 138/72
[2017-04-16] MEDS: Lactulose 20gm/30ml UDC ORAL SCH (08:34)
[2017-04-16 08:36] VITALS: BP 138/72
[2017-04-16] MEDS: Heparin 5000 units/ml inj SUBQ SCH (08:36)
[2017-04-16] MEDS ORDERED: Lisinopril 10mg tab ORAL SCH (09:00)
[2017-04-16 09:35] LABS: OTHERS PATHOLOGIST COMMENT
--- NOTE | 2017-04-16 10:30 | Consultation ---
DATE OF CONSULTATION: 04/15/2017 INFECTIOUS DISEASE CONSULTATION CONSULTING PHYSICIAN: Joseph Pacheco M.D. REFERRING PHYSICIAN: Tian Hagan M.D. REASON FOR CONSULTATION: Evaluation of the patient for antibiotic management. HISTORY OF PRESENT ILLNESS: The patient is a 61-year-old male with multiple medical problems, as listed below, who has been admitted with due to headache slurred speech. Also the patient was found to have . Infectious Disease consultation has been requested for further evaluation of the patient and need for possible antibiotic management. According to the notes, the patient has slurred speech for the last four days, however, the patient has no headaches. Labs showed normal white blood cells and mild anemia. The patient was seen by neurologist and being worked up for CVA. PAST MEDICAL HISTORY: 1. History of intracranial hemorrhage in the past. 2. History of hypertension. 3. History of renal insufficiency. 4. History of cirrhosis. MEDICATIONS: Currently off of antibiotics. ALLERGIES: Penicillin. SOCIAL HISTORY: The patient is homeless. REVIEW OF SYSTEMS: Difficult to obtain. Much of the information I was able to gather as mentioned above. PHYSICAL EXAMINATION: VITAL SIGNS: Temperature 98.2 degrees, blood pressure 145/80, pulse 86 , and respiratory rate 18. HEENT: Mild pale conjunctivae. No icterus. NECK: No lymphadenopathy. CHEST: Clear. HEART: S1 and S2. ABDOMEN: Soft. EXTREMITIES: No cyanosis. NEUROLOGIC: The patient has facial droop. LABORATORY AND DIAGNOSTIC DATA: White blood cells 5.1, hemoglobin 11, and platelets 126,000. BUN 11 and creatinine 0.6 . AST 217, ALT 154, and alkaline phosphatase 130. Workup, echocardiogram, no evidence of vegetation. Brain MRI showed diffusion in thalamus consistent with stroke. Possible emboli to the left cerebral artery. Chest x-ray, no acute findings. ASSESSMENT: The patient is a 61-year-old male with acute stroke, possible embolic phenomena, we will need to rule out, 1. Possible bacteremia. 2. Possible endocarditis, echo has been negative. PLAN: 1. We will send blood culture. 2. Monitor CBC. 3. Monitor BMP. 4. We will follow neurosurgical recommendations. 5. Hepatitis panel for evaluation of the patient's transaminitis. 6. Based on the patient's clinical course and labs, we will do further recommendations. Thank you Dr. Hagan for allowing me to participate in the care of this patient. I will follow the patient with you during this hospitalization. Joseph Pacheco M.D. DR: LAZARO JOB#: [id number] CC:
[2017-04-16] MEDS ORDERED: CLONIDINE0.1 MG ORAL (12:25)
[2017-04-16] MEDS ORDERED: LISINOPRIL10 MG ORAL (12:25)
[2017-04-16] MEDS ORDERED: LACTULOSE20 GM/301 ORAL (12:25)
--- NOTE | 2017-04-16 13:17 | Neurology Progress Note ---
Interim History Interim History ROS Limited/Unobtainable: No Complaints: mild TORRES Events: improving Objective Physical Exam Last Vital Signs Date Time Temp Pulse Resp B/P Pulse Ox O2 Delivery O2 Flow Rate FiO2 04/16/17 08:36 67 138/72 04/16/17 08:12 97.9 18 99 Room Air 04/15/17 15:44 2.0 Laboratory Tests Test 04/16/17 05:10 Hepatitis A IgM Antibody Pending Hepatitis B Surface Antigen Pending Hepatitis B Core IgM Antibody Pending Hepatitis C Antibody Pending General: well developed, no acute distress Head: normocophalic, atraumatic Neck: no rigidity Neurologic Exam Mental Status: awake, alert, normal recent memory, normal remote memory Speech: other - sl slurry speech Language: no aphasia Cranial Nerve II: no papilledema Cranial Nerves III, IV, : PERRLA, EOMI, pupils Cranial Nerve V: normal facial sensations Cranial Nerve VII: other - L droop Cranial Nerve VIII: normal hearing, no nystagmus Cranial Nerve IX: normal palate elevation, gag response Cranial Nerve X: no voice hoarseness Cranial Nerve XI: SCM symmetric, trapezii function normal Cranial Nerve XII: tongue midline, no tongue atrophy/fasciculations Motor System: normal muscle tone, strength 5/5, no involuntary movement, no muscle wasting Sensory: normal pinprick, normal light touch, normal position sense, normal graphesthesia Coordination: normal finger to nose bilaterally, normal heel to macedo bilaterally, negative Romberg test Deep Tendon Reflexes: 0 ankle (L), 0 ankle (R), 0 bicep (L), 0 bicep (R), 0 brachioradialis (L), 0 brachioradialis (R), 0 knee (L), 0 knee (R), 0 tricep (L) , 0 tricep (R) Reflexes: mute plantar (L), mute plantar (R) Impression/Recommendations Problems: (1) Acute ischemic left posterior cerebral artery ([employer]) stroke (2) 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
--- NOTE | 2017-04-16 13:17 | Neurology Progress Note ---
Interim History Interim History ROS Limited/Unobtainable: No Complaints: mild TORRES Events: improving Objective Physical Exam Last Vital Signs Date Time Temp Pulse Resp B/P Pulse Ox O2 Delivery O2 Flow Rate FiO2 04/16/17 08:36 67 138/72 04/16/17 08:12 97.9 18 99 Room Air 04/15/17 15:44 2.0 Laboratory Tests Test 04/16/17 05:10 Hepatitis A IgM Antibody Pending Hepatitis B Surface Antigen Pending Hepatitis B Core IgM Antibody Pending Hepatitis C Antibody Pending General: well developed, no acute distress Head: normocophalic, atraumatic Neck: no rigidity Neurologic Exam Mental Status: awake, alert, normal recent memory, normal remote memory Speech: other - sl slurry speech Language: no aphasia Cranial Nerve II: no papilledema Cranial Nerves III, IV, : PERRLA, EOMI, pupils Cranial Nerve V: normal facial sensations Cranial Nerve VII: other - L droop Cranial Nerve VIII: normal hearing, no nystagmus Cranial Nerve IX: normal palate elevation, gag response Cranial Nerve X: no voice hoarseness Cranial Nerve XI: SCM symmetric, trapezii function normal Cranial Nerve XII: tongue midline, no tongue atrophy/fasciculations Motor System: normal muscle tone, strength 5/5, no involuntary movement, no muscle wasting Sensory: normal pinprick, normal light touch, normal position sense, normal graphesthesia Coordination: normal finger to nose bilaterally, normal heel to macedo bilaterally, negative Romberg test Deep Tendon Reflexes: 0 ankle (L), 0 ankle (R), 0 bicep (L), 0 bicep (R), 0 brachioradialis (L), 0 brachioradialis (R), 0 knee (L), 0 knee (R), 0 tricep (L) , 0 tricep (R) Reflexes: mute plantar (L), mute plantar (R) Impression/Recommendations Problems: (1) Acute ischemic 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
--- NOTE | 2017-04-16 13:30 | Pulmonology Progress Note ---
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 Subjective ROS Limited/Unobtainable: No Constitutional: Reports: no symptoms HEENT: Repors: no symptoms Respiratory: Reports: no symptoms Allergies: Coded Allergies: PENICILLINS (Verified Allergy, Unknown, 02/10/17) Objective Last 24 Hour Vital Signs Date Time Temp Pulse Resp B/P Pulse Ox O2 Delivery O2 Flow Rate FiO2 04/16/17 08:36 67 138/72 04/16/17 08:35 138/72 04/16/17 08:35 67 138/72 04/16/17 08:12 97.9 67 18 138/72 99 Room Air 04/16/17 04:00 98.1 71 17 150/87 99 Room Air 04/16/17 00:00 97.9 73 17 138/72 98 Room Air 04/15/17 21:04 80 145/80 04/15/17 20:00 98.2 80 17 145/80 Room Air 04/15/17 17:31 73 144/92 04/15/17 15:44 97.9 73 22 144/92 97 Nasal Cannula 2.0 Intake and Output 04/15/17 04/16/17 19:00 07:00 Intake Total 730 ml 360 ml Output Total 650 ml Balance 80 ml 360 ml Intake Oral 730 ml 360 ml Output Urine Total 650 ml # Voids 3 General Appearance: WD/WN HEENT: normocephalic, anicteric Respiratory/Chest: chest wall non-tender, lungs clear Cardiovascular: normal peripheral pulses, normal rate Abdomen: normal bowel sounds, soft, non tender Genitourinary: normal external genitalia Extremities: no clubbing Neurologic/Psychiatric: services rep II-XII grossly normal, abnormal gait Lymphatic: no neck adenopathy Laboratory Tests 04/16/17 05:10: Hepatitis A IgM Antibody [Pending], Hepatitis B Surface Antigen [Pending], Hepatitis B Core IgM Antibody [Pending], Hepatitis C Antibody [Pending] Current Medications Medications (Trade) Dose Ordered Sig/Sharla Route PRN Reason Start Time Stop Time Status Last Admin Dose Admin Acetaminophen (Tylenol) 650 mg Q4H PRN ORAL fever 04/15/17 15:15 05/15/17 15:14 04/16/17 02:16 Al Hydroxide/Mg Hydroxide (Mylanta II) 30 ml Q6H PRN ORAL dyspepsia 04/15/17 17:15 05/15/17 17:14 Albuterol/ Ipratropium (DuoNeb 0.5-3(2.5)mg/3ml) 3 ml Q4H PRN HHN Shortness of Breath 04/15/17 15:15 04/20/17 15:14 Amlodipine Besylate (Norvasc) 5 mg BID ORAL 04/15/17 18:00 05/15/17 17:59 04/16/17 08:35 Carvedilol (Coreg) 3.125 mg EVERY 12 HOURS ORAL 04/15/17 21:00 05/15/17 20:59 04/16/17 08:36 Clonidine HCl (Catapres) 0.1 mg Q4H PRN ORAL For High Blood Pressure 04/15/17 15:15 05/15/17 15:14 Dextrose (Dextrose 50%) STAT PRN IV Hypoglycemia 04/15/17 23:15 05/15/17 23:14 Heparin Sodium (Porcine) (Heparin 5000 units/ml) 5,000 units EVERY 12 HOURS SUBQ 04/15/17 21:00 05/15/17 20:59 Lactulose (Cephulac) 30 gm DAILY ORAL 04/15/17 18:00 05/15/17 17:59 04/16/17 08:34 Lisinopril (Zestril) 10 mg DAILY ORAL 04/16/17 09:00 05/16/17 08:59 04/16/17 08:35 Lorazepam (Ativan 2mg/ml 1ml) 0.5 mg Q4H PRN IV For Anxiety 04/15/17 15:15 04/22/17 15:14 Morphine Sulfate (Morphine Sulfate) 1 mg Q4H PRN IVP For Pain 7-04/15/17 15:15 04/22/17 15:14 04/15/17 22:45 Nitroglycerin (Ntg) 0.4 mg Q5M X 3 DOSES PRN SL Prn Chest Pain 04/15/17 14:15 05/15/17 14:14 Ondansetron HCl (Zofran) 4 mg Q6H PRN IVP Nausea & Vomiting 04/15/17 17:15 05/15/17 17:14 Polyethylene Glycol (Miralax) 17 gm HSPRN PRN ORAL Constipation 04/15/17 23:15 05/15/17 23:14 Promethazine HCl/ Codeine (Phenergan with Codeine) 5 ml Q4H PRN ORAL For Cough 04/15/17 15:15 05/15/17 15:14 Temazepam (Restoril) 15 mg HSPRN PRN ORAL Insomnia 04/15/17 23:15 04/22/17 23:14 RASHAAD GALLAGHER Apr 16, 2017 13:30
[2017-04-16] MEDS: Morphine Sulfate 2mg/ml Inj IVP PRN (16:00)
[2017-04-16] MEDS ORDERED: ASPIR 8181 MG ORAL (17:26)
--- NOTE | 2017-04-16 18:10 | Infectious Diseases Prog Note ---
Assessment/Plan Assessment/Plan A: The patient is a 61-year-old male with Transaminitis Doubt SBE for Bacteremia Echo : no evidence of Veg Brain MRI+ve : stroke. / Possible emboli to the left cerebral artery recent CVA TORRES slurred speech History of intracranial hemorrhage in the past. HTN Hx of renal insufficiency History of cirrhosis PLAN: off of AB rx Monitor blood culture Monitor CBC. Monitor BMP. will follow neurosurgical recommendations Hepatitis panel Subjective Allergies: Coded Allergies: PENICILLINS (Verified Allergy, Unknown, 02/10/17) Subjective feeling better Objective Vital Signs Last 24 Hour Vital Signs Date Time Temp Pulse Resp B/P Pulse Ox O2 Delivery O2 Flow Rate FiO2 04/16/17 08:36 67 138/72 04/16/17 08:35 138/72 04/16/17 08:35 67 138/72 04/16/17 08:12 97.9 67 18 138/72 99 Room Air 04/16/17 04:00 98.1 71 17 150/87 99 Room Air 04/16/17 00:00 97.9 73 17 138/72 98 Room Air 04/15/17 21:04 80 145/80 04/15/17 20:00 98.2 80 17 145/80 Room Air Height (Feet): 6 Height (Inches): 3.00 Weight (Pounds): 203 HEENT: mucous membranes moist Respiratory/Chest: no accessory muscle use Cardiovascular: regular rhythm Abdomen: no organomegaly Laboratory Tests Test 04/16/17 05:10 Hepatitis A IgM Antibody Pending Hepatitis B Surface Antigen Pending Hepatitis B Core IgM Antibody Pending Hepatitis C Antibody Pending Current Medications Medications (Trade) Dose Ordered Sig/Sharla Route PRN Reason Start Time Stop Time Status Last Admin Dose Admin Acetaminophen (Tylenol) 650 mg Q4H PRN ORAL fever 04/15/17 15:15 05/15/17 15:14 04/16/17 02:16 Al Hydroxide/Mg Hydroxide (Mylanta II) 30 ml Q6H PRN ORAL dyspepsia 04/15/17 17:15 05/15/17 17:14 Albuterol/ Ipratropium (DuoNeb 0.5-3(2.5)mg/3ml) 3 ml Q4H PRN HHN Shortness of Breath 04/15/17 15:15 04/20/17 15:14 Amlodipine Besylate (Norvasc) 5 mg BID ORAL 04/15/17 18:00 05/15/17 17:59 04/16/17 08:35 Carvedilol (Coreg) 3.125 mg EVERY 12 HOURS ORAL 04/15/17 21:00 05/15/17 20:59 04/16/17 08:36 Clonidine HCl (Catapres) 0.1 mg Q4H PRN ORAL For High Blood Pressure 04/15/17 15:15 05/15/17 15:14 Dextrose (Dextrose 50%) STAT PRN IV Hypoglycemia 04/15/17 23:15 05/15/17 23:14 Heparin Sodium (Porcine) (Heparin 5000 units/ml) 5,000 units EVERY 12 HOURS SUBQ 04/15/17 21:00 05/15/17 20:59 Lactulose (Cephulac) 30 gm DAILY ORAL 04/15/17 18:00 05/15/17 17:59 04/16/17 08:34 Lisinopril (Zestril) 10 mg DAILY ORAL 04/16/17 09:00 05/16/17 08:59 04/16/17 08:35 Lorazepam (Ativan 2mg/ml 1ml) 0.5 mg Q4H PRN IV For Anxiety 04/15/17 15:15 04/22/17 15:14 Morphine Sulfate (Morphine Sulfate) 1 mg Q4H PRN IVP For Pain 7-04/15/17 15:15 04/22/17 15:14 04/16/17 16:00 Nitroglycerin (Ntg) 0.4 mg Q5M X 3 DOSES PRN SL Prn Chest Pain 04/15/17 14:15 05/15/17 14:14 Ondansetron HCl (Zofran) 4 mg Q6H PRN IVP Nausea & Vomiting 04/15/17 17:15 05/15/17 17:14 Polyethylene Glycol (Miralax) 17 gm HSPRN PRN ORAL Constipation 04/15/17 23:15 05/15/17 23:14 Promethazine HCl/ Codeine (Phenergan with Codeine) 5 ml Q4H PRN ORAL For Cough 04/15/17 15:15 05/15/17 15:14 Temazepam (Restoril) 15 mg HSPRN PRN ORAL Insomnia 04/15/17 23:15 7/19/17 23:14 YODIT CASTAÑEDA M.D. Apr 16, 2017 18:10
--- NOTE | 2017-04-16 20:44 | Podiatric Progress Note ---
Assessment/Plan Patient Cy Grewal is a 61 year old male who was admitted on Apr 14, 2017 at 22: 42 with slurred speach Problems: (1) Peripheral neuropathy (2) Onychomycosis Assessment/Plan - Debrided toenails x 10 without complications - Patient educated about neuropathic foot care - Instructed patient to follow up in podiatry clinic as an outpatient Subjective Reason for consult Diabetic foot care Procedure Performed Toenail debridement Allergies: Coded Allergies: PENICILLINS (Verified Allergy, Unknown, 02/10/17) Subjective Patient is doing well. No nausea, vomiting, fevers, or chills Objective Exam Last 24 Hour Vital Signs Date Time Temp Pulse Resp B/P Pulse Ox O2 Delivery O2 Flow Rate FiO2 04/16/17 08:36 67 138/72 04/16/17 08:35 138/72 04/16/17 08:35 67 138/72 04/16/17 08:12 97.9 67 18 138/72 99 Room Air 04/16/17 04:00 98.1 71 17 150/87 99 Room Air 04/16/17 00:00 97.9 73 17 138/72 98 Room Air 04/15/17 21:04 80 145/80 Laboratory Tests Test 04/16/17 05:10 Hepatitis A IgM Antibody Pending Hepatitis B Surface Antigen Pending Hepatitis B Core IgM Antibody Pending Hepatitis C Antibody Pending Exam Narrative Bilateral foot with thick, discolored, and elongated toenails x 10 Faheem Rubin DPM Apr 16, 2017 20:44
--- NOTE | 2017-04-17 13:22 | Discharge Summary ---
Discharge Summary Hospital Course Date of Admission Apr 14, 2017 at 22:42 Date of Discharge Apr 16, 2017 at 18:23 Admitting Diagnosis SLURRED SPEECH HPI Cy Grewal is a 61 year old male who was admitted on Apr 14, 2017 at 22: 42 for Slurred Speech Hospital Course [id number] Discharge Discharge Disposition Patient was discharged to SNF/Subacute Facility(03) Discharge Diagnoses: Xiao Mejía NP Apr 17, 2017 13:21
--- NOTE | 2017-04-18 05:15 | Discharge Summary 2 SIG ---
DATE OF ADMISSION: 04/14/2017 DATE OF DISCHARGE: 04/16/2017 CONSULTANTS: 1. Joseph Pacheco M.D. 2. Faheem Rubin DPM. 3. Yasmany Thompson M.D. BRIEF HOSPITAL COURSE: The patient is a 61-year-old male with history of hypertension, chronic liver disease, osteomyelitis, intermediate resident, and previously homeless, presented to [facility] [place] complaining of slurred speech and uncontrolled hypertension. He has chronic left-sided weakness from previous CVA and stated that he had headache that felt like a headache when he had a bleed a year ago. On evaluation at ED, there was no acute focal neurologic deficit. Head CT done showed chronic age-related changes and negative for acute intracranial bleed or mass effect. Laboratories showed no leukocytosis. EKG showed T-wave inversion on inferolateral leads. He had elevated liver function tests. He was admitted to telemetry for evaluation of slurred speech, coagulopathy, hepatitis C, liver cirrhosis, and neuropathic ulcer on the foot. He underwent neurologic evaluation with Dr. Thompson. Carotid Duplex did not show any hemodynamically significant lesion. Headache substantially improved, although he continued to have drooling of the left side of the face and has remained with a slurred speech. He had severe headache with elevated blood pressure, probably representing hypertensive urgency. He had ischemic cerebrovascular disease and was given Ecotrin, physical therapy, occupational therapy, and speech therapy. Lipid panel was checked. LDL was 60 and HDL 58. He had a brain MRI done that showed two foci of restricted diffusion in the left posterior thalami and left posterior deep white matter consistent with appearing infarcts with presence of old hemorrhage associated with encephalomalacia in the left frontal opercular region. Hepatitis serology was negative. Echocardiogram done showed no evidence of vegetation and ejection fraction 60%. He was seen by Dr. Rubin and underwent debridement of toenails x10. He was educated about neuropathic foot care and was advised to follow up with Podiatry as outpatient. He was eventually discharged to SNF to continue rehabilitation. FINAL DIAGNOSES: 1. Acute ischemic left posterior cerebral artery stroke. 2. Old multiple lacunar microhemorrhagic stroke. 3. Hepatitis C. 4. Peripheral neuropathy. 5. Onychomycosis, status post debridement. 6. Right hallux ulcer with old osteomyelitis, currently healed, present on admission. Tian Hagan M.D. I have been assigned to dictate discharge summary on this account and I was not involved in the patient's management. Xiao Mejía N.P. DR: Simin JOB#: [id number] CC:
== END 2017-04-16 18:23 | DRG 45 ==
LOC: EDBD 21:25 → EMR 22:05 → 2E 22:42 → EDBEDREQ 23:25 → 4E 04-15 14:13
DX: I63.532 Cerebral infarction due to unspecified occlusion or stenosis of left posterior cerebral artery (principal); K74.60 Unspecified cirrhosis of liver; G62.9 Polyneuropathy, unspecified; I16.0 Hypertensive urgency; B35.1 Tinea unguium; F19.21 Other psychoactive substance dependence, in remission; B19.20 Unspecified viral hepatitis C without hepatic coma; Z86.73 Personal history of transient ischemic attack (TIA), and cerebral infarction without residual deficits; Z59.0 Homelessness; R29.810 Facial weakness; Z88.0 Allergy status to penicillin; L97.512 Non-pressure chronic ulcer of other part of right foot with fat layer exposed
CPT/HCPCS: 36415; 70450; 70551; 71010; 80053; 80061; 82140; 82270; 82378; 82550; 82553; 82607; 82746; 83540; 83550; 83615; 84443; 84484; 85007; 85025; 85044; 85060; 85610; 85651; 85730; 86705; 86709; 86803; 87081; 87340; 93005; 93306; 93880; 93970; 94664

== ENCOUNTER 2017-07-01 03:55 | Emergency (ER) | payer OTHER ==
[~2017-07-01] VITALS: Ht 190.5 cm; Wt 93.0 kg
[~2017-07-01 03:55] MED LIST changes: +ASPIR 8181 MG ORAL; +ATORVASTATIN CA40 MG ORAL; +CARVEDILOL3.125 MG ORAL; +CLONIDINE0.1 MG ORAL; -D5 1/2NS 1,000 ML IV SCH; +IBUPROFEN600 MG ORAL; +LACTULOSE20 GM/301 ORAL; +LANTUS SOL100 UNIT/1 SUBQ; +LISINOPRIL10 MG ORAL; +PANTOPRAZOLE SO40 MG ORAL; +RISPERDAL0.25 MG ORAL
[2017-07-01 04:03] VITALS: BP 140/62
[2017-07-01] MEDS ORDERED: NEURONTIN100 MG ORAL (04:25)
--- NOTE | 2017-07-01 04:25 | Emergency Room Report ---
History of Present Illness General Chief Complaint: Pain Source: Patient Present Illness HPI Is a 61-year-old male who is homeless. He has a history of cocaine abuse with CVA. He has left-sided weakness. He presents with right leg pain. No trauma. Chronic issue. No fever chills but no nausea no vomiting. No new focal deficit. No slurred speech. Allergies: Coded Allergies: PENICILLINS (Verified Allergy, Unknown, 02/10/17) Patient History Past Medical History: see triage record, old chart reviewed, DM, AFib Past Surgical History: other Pertinent Family History: none Social History: Reports: alcohol use, drug use Immunizations: other Reviewed Nursing Documentation: PMH: Agreed, PSxH: Agreed Nursing Documentation-PMH Past Medical History: No History, Except For Hx Cardiac Problems: Yes Hx Hypertension: Yes Hx Diabetes: Yes Hx Cancer: No Hx Gastrointestinal Problems: Yes Hx Neurological Problems: Yes - ICH Hx Cerebrovascular Accident: Yes Hx Speech Problem: Yes Hx Headaches: Yes Review of Systems Eye: Denies: eye pain, blurred vision ENT: Denies: ear pain, nose congestion, throat swelling Respiratory: Denies: cough, shortness of breath Cardiovascular: Denies: chest pain, palpitations Gastrointestinal: Denies: abdominal pain, diarrhea, nausea, vomiting Musculoskeletal: Reports: muscle pain, Denies: back pain, joint pain Skin: Denies: rash Neurological: Denies: headache, numbness Endocrine: Denies: increased thirst, increased urine Hematologic/Lymphatic: Denies: easy bruising All Other Systems: negative except mentioned in HPI Physical Exam Vital Signs Date Time Temp Pulse Resp B/P (MAP) Pulse Ox O2 Delivery O2 Flow Rate FiO2 07/01/17 03:50 88 12 140/62 98 Room Air 07/01/17 04:03 97.8 vitals normal Sp02 EP Interpretation: reviewed, normal General Appearance: well appearing, no apparent distress, alert Head: normocephalic, atraumatic Eyes: bilateral eye PERRL, bilateral eye EOMI ENT: hearing grossly normal, normal pharynx Neck: full range of motion, supple, no meningismus Respiratory: chest non-tender, lungs clear, normal breath sounds Cardiovascular #1: regular rate, rhythm, no murmur Gastrointestinal: normal bowel sounds, non tender, no mass, no organomegaly, no bruit, non-distended Musculoskeletal: back normal, other - Left-sided weakness Neurologic: alert, oriented x3 Psychiatric: mood/affect normal Skin: warm/dry Medical Decision Making Diagnostic Impression: Primary Impression: Peripheral neuropathy Qualified Codes: G62.9 - Polyneuropathy, unspecified ER Course Patient with lower extremity pain. Chronic in nature. No evidence of DVT, CVA , pneumonia, septic joint in a few. We'll discharge home. Last Vital Signs Date Time Temp Pulse Resp B/P (MAP) Pulse Ox O2 Delivery O2 Flow Rate FiO2 07/01/17 04:03 97.8 82 12 140/62 98 Room Air Status: unchanged Disposition: HOME, SELF-CARE Condition: Stable Scripts Gabapentin* (NEURONTIN*) 100 Mg Capsule 100 MG ORAL THREE TIMES A DAY, #30 CAP 0 Refills Prov: JOSE CRUZ PARKER M.D. 07/01/17 Referrals: BREANA BARTHOLOMEW,REFERRING (PCP) Patient Instructions: PAIN, Uncertain Cause (Acute) Additional Instructions: Abstain from drugs and alcohol. Follow up with your 7 days and return if worse. JOSE CRUZ PARKER M.D. Jul 01, 2017 04:25
[2017-07-01 05:16] VITALS: BP 140/62
[2017-07-01 05:35] VITALS: BP 140/62
== END 2017-07-01 05:35 | disposition home or self-care (01) ==
LOC: EDBD 03:55 → EMR 04:18
DX: G62.9 Polyneuropathy, unspecified (principal); F14.10 Cocaine abuse, uncomplicated; Z86.73 Personal history of transient ischemic attack (TIA), and cerebral infarction without residual deficits; Z88.0 Allergy status to penicillin; E11.9 Type 2 diabetes mellitus without complications; Z59.0 Homelessness; I48.91 Unspecified atrial fibrillation
CPT/HCPCS: 99283

== ENCOUNTER 2018-01-29 15:51 | Inpatient (IN) | payer OTHER ==
[~2018-01-29] VITALS: Ht 190.5 cm; Wt 86.6 kg
[~2018-01-29 15:51] MED LIST changes: +NEURONTIN100 MG ORAL
[2018-01-29] MEDS ORDERED: GABAPENTIN300 MG ORAL (15:54)
[2018-01-29] MEDS ORDERED: AMLODIPINE BESY10 MG ORAL (15:54)
--- NOTE | 2018-01-29 16:50 | Emergency Room Report ---
History of Present Illness General Chief Complaint: General Complaint Source: Patient Present Illness HPI 66-year-old male presents to the emergency department brought by ambulance for altered mental status and inappropriate behavior. According to EMS they were called earlier today for similar symptoms and patient did not want to be transported. Patient was said to be rolling around on the ground so bystander called 911 and this time EMS decided to transport. Upon arrival patient is nonverbal he is lethargic, and only responsive to painful stimuli. Patient is not cooperative and can answer questions. Eventually patient became more responsive to verbal stimuli however unable to form sentences or make a brief and simple words. History and ROS is limited. Allergies: Coded Allergies: PENICILLINS (Verified Allergy, Unknown, 02/10/17) Patient History Past Medical History: see triage record, HTN - deduced from medications in pt. possession on arrival., other - neuropathy:deduced from medications in pt. possession on arrival. Past Surgical History: unable to obtain Pertinent Family History: unable to obtain Social History: Reports: drug use - obtained from hx Reviewed Nursing Documentation: PMH: Agreed; PSxH: Agreed Nursing Documentation-PMH Past Medical History: No History, Except For Hx Cardiac Problems: Yes Hx Hypertension: Yes Hx Diabetes: Yes Hx Cancer: No Hx Gastrointestinal Problems: Yes Hx Neurological Problems: Yes - ICH Hx Cerebrovascular Accident: Yes Hx Speech Problem: Yes Hx Headaches: Yes Review of Systems All Other Systems: negative except mentioned in HPI Physical Exam Vital Signs Date Time Temp Pulse Resp B/P (MAP) Pulse Ox O2 Delivery O2 Flow Rate FiO2 01/29/18 15:33 98.0 104 16 163/98 98 Room Air 98.1 Sp02 EP Interpretation: reviewed, normal General Appearance: no apparent distress, alert, lethargic, other - Grossly contaminated and disheveled Head: normocephalic, atraumatic Eyes: bilateral eye normal inspection, bilateral eye PERRL, bilateral eye other - Normal blinking response to stimuli of the lids and lashes. Strabismus of the right eye ENT: moist mucus membranes Neck: full range of motion, no bony tend Respiratory: chest non-tender, lungs clear, normal breath sounds, speaking full sentences Cardiovascular #1: regular rate, rhythm, no edema, normal capillary refill - pale nail beds Gastrointestinal: normal bowel sounds, non tender, soft Musculoskeletal: non-tender Neurologic: responsive - painful stimuli initially, then loud verbal stimuli, motor strength/tone normal, DTRs symmetric, sensory intact, other - pt. has slurred speech and abnormal tongue movements, no verticle nystagmus, some right sided strabismus Psychiatric: other - PAIGE Skin: normal color, no rash, warm/dry, other - pale nailbeds Medical Decision Making PA Attestation Dr. Arshad is my supervising Physician whom patient management has been discussed with. Diagnostic Impression: Primary Impression: NSTEMI (non-ST elevated myocardial infarction) Additional Impression: Hyperammonemia ER Course Pt is lethargic and will attempt to communicate. arousable to loud verbal commands, or painful stimuli Ddx considered but are not limited to OD, SI/HI, psychosis, UTI, intoxication, intracranial process, ETOH, Sepsis Vital signs: are WNL, pt. is afebrile -Review of this patient's past medical history here significant for liver cirrhosis, and posterior cerebral stroke, multiple lacunar and migratory hemorrhagic strokes as well as drug abuse and hepatitis C. H&PE are most consistent with possible intoxication. There is no obvious signs of trauma. ORDERS: none required at this time, the diagnosis is clinical -UA: WNL -UDS: negative -Serum ETOH: negative/no acute intoxication. -CT head no contrast: Unremarkable per radiology report -EKG: T wave inversions in lateral and inferior leads, no obvious ST elevations normal heart rate at 74 bpm regular rhythm. -Troponin: 0.133 -Ammonia: elevated at 74 ED INTERVENTIONS: - 162 ASA -Lactulose 20mg Oral ( ordered) - contacted tele nurse DISPOSITION: at this time pt. will be admitted to Dr. Dangelo for NSTEMI. Dr. Dangelo agreed to admit the pt. and to continue pt. care management. Labs Test 01/29/18 17:45 White Blood Count 6.9 K/UL (4.8-10.8) Red Blood Count 3.53 M/UL (4.70-6.10) Hemoglobin 12.1 G/DL (14.2-18.0) Hematocrit 35.0 % (42.0-52.0) Mean Corpuscular Volume 99 FL (80-99) Mean Corpuscular Hemoglobin 34.3 PG (27.0-31.0) Mean Corpuscular Hemoglobin Concent 34.7 G/DL (32.0-36.0) Red Cell Distribution Width 12.4 % (11.6-14.8) Platelet Count 155 K/UL (150-450) Mean Platelet Volume 8.5 FL (6.5-10.1) Neutrophils (%) (Auto) 47.9 % (45.0-75.0) Lymphocytes (%) (Auto) 38.3 % (20.0-45.0) Monocytes (%) (Auto) 11.2 % (1.0-10.0) Eosinophils (%) (Auto) 1.2 % (0.0-3.0) Basophils (%) (Auto) 1.4 % (0.0-2.0) Prothrombin Time 12.0 SEC (9.30-11.50) Prothromb Time International Ratio 1.1 (0.9-1.1) Activated Partial Thromboplast Time 26 SEC (23-33) Urine Color Yellow Urine Appearance Slightly cloudy Urine pH 5 (4.5-8.0) Urine Specific [place] 1.025 (1.005-1.035) Urine Protein 2+ (NEGATIVE) Urine Glucose (UA) Negative (NEGATIVE) Urine Ketones 1+ (NEGATIVE) Urine Occult Blood 5+ (NEGATIVE) Urine Nitrite Negative (NEGATIVE) Urine Bilirubin Negative (NEGATIVE) Urine Urobilinogen 1 MG/DL (0.0-1.0) Urine Leukocyte Esterase Negative (NEGATIVE) Urine RBC 2-4 /HPF (0 - 0) Urine WBC 0-2 /HPF (0 - 0) Urine Squamous Epithelial Cells None /LPF (NONE/OCC) Urine Amorphous Sediment Moderate /LPF (NONE) Urine Bacteria Few /HPF (NONE) Sodium Level 144 MMOL/L (136-145) Potassium Level 3.5 MMOL/L (3.5-5.1) Chloride Level 105 MMOL/L (98-107) Carbon Dioxide Level 28 MMOL/L (21-32) Anion Gap 11 mmol/L (5-15) Blood Urea Nitrogen 57 mg/dL (7-18) Creatinine 3.7 MG/DL (0.55-1.30) Estimat Glomerular Filtration Rate 20.2 mL/min (>60) Glucose Level 97 MG/DL (74-106) Hemoglobin A1c 5.5 % (4.3-6.0) Calcium Level 10.2 MG/DL (8.5-10.1) Iron Level 99 ug/dL (50-175) Total Iron Binding Capacity 315 ug/dL (250-450) Percent Iron Saturation 31 % (15-50) Unsaturated Iron Binding 216 ug/dL (112-346) Ferritin 880 NG/ML (8-388) Total Bilirubin 1.5 MG/DL (0.2-1.0) Direct Bilirubin 0.7 MG/DL (0.0-0.3) Aspartate Amino Transf (AST/SGOT) 192 U/L (15-37) Alanine Aminotransferase (ALT/SGPT) 70 U/L (12-78) Alkaline Phosphatase 88 U/L (46-116) Ammonia 74 umol/L (11-32) Troponin I 0.133 ng/mL (0.000-0.056) Pro-B-Type Natriuretic Peptide 402 pg/mL (0-125) Total Protein 10.2 G/DL (6.4-8.2) Albumin 3.3 G/DL (3.4-5.0) Globulin 6.9 g/dL Albumin/Globulin Ratio 0.5 (1.0-2.7) Triglycerides Level 92 MG/DL (30-150) Cholesterol Level 168 MG/DL (< 200) LDL Cholesterol 89 mg/dL (<100) HDL Cholesterol 63 MG/DL (40-60) Cholesterol/HDL Ratio 2.7 (3.3-4.4) Free Thyroxine 1.56 NG/DL (0.76-1.46) Urine Opiates Screen Negative (NEGATIVE) Urine Barbiturates Screen Negative (NEGATIVE) Phencyclidine (PCP) Screen Negative (NEGATIVE) Urine Amphetamines Screen Negative (NEGATIVE) Urine Benzodiazepines Screen Negative (NEGATIVE) Urine Cocaine Screen Negative (NEGATIVE) Urine Marijuana (THC) Screen Negative (NEGATIVE) Serum Alcohol < 3 mg/dL EKG Diagnostic Results EP Interpretation: Dr. Arshad Rate: normal Rhythm: NSR ST Segments: no acute changes Other Impression T-wave inversions in lateral and inferior leads suspicious for ischemia. ASA given to the pt in ED: Yes SHAN Scribe Text This Interpretation was scribed by SHAN Rangel. CT/MRI/US Diagnostic Results CT/MRI/US Diagnostic Results : Impression "No evidence of acute fracture, hemorrhage, or intracranial process ."Per official radiology report- Please see report for specific details. Last Vital Signs Date Time Temp Pulse Resp B/P (MAP) Pulse Ox O2 Delivery O2 Flow Rate FiO2 01/29/18 15:33 98.0 104 16 163/98 98 Room Air 98.1 Disposition: ADMITTED INPATIENT Condition: Veena Garcia Jan 29, 2018 16:49
--- NOTE | 2018-01-29 17:34 | Diagnostic Imaging Report ---
Indication: Altered mental status Technique: spiral acquisitions obtained through the brain. Angled axial and coronal 5 x 5 mm slices were reconstructed. No IV contrast utilized. Radiation dose was minimized using automated exposure control Total dose length product 1530.75 mGycm. CTDIvol(s) 70.38 mGy Comparison: none FINDINGS: No acute hemorrhage or edema. No mass effect or midline shift. There is age-related enlargement of the ventricles and extra axial CSF spaces. There is periventricular deep white matter ischemic change. Normal barajas-white differentiation. Visualized orbits are unremarkable. Visualized sinuses are unremarkable. Intact calvarium. No significant change IMPRESSION: Chronic and age-related changes. Negative for acute intracranial bleed or mass effect The CT scanner at [facility] is accredited by the [employer] and the scans are performed using protocols designed to limit radiation exposure to as low as reasonably achievable to attain images of sufficient resolution adequate for diagnostic evaluation
[2018-01-29 17:39] VITALS: BP 169/91
[2018-01-29 18:06] LABS: BASOPHILS % (AUTO) 1.4 % (0.0-2.0); EOSINOPHILS % (AUTO) 1.2 % (0.0-3.0); HEMOGLOBIN 12.1 G/DL (14.2-18.0); LYMPHOCYTES % (AUTO) 38.3 % (20.0-45.0); MEAN CORPUSCULAR VOLUME 99 FL (80-99); MONOCYTES % (AUTO) 11.2 % (1.0-10.0); NEUTROPHILS % (AUTO) 47.9 % (45.0-75.0); PLATELET COUNT 155 K/UL (150-450); RED BLOOD COUNT 3.53 M/UL (4.70-6.10); RED CELL DISTRIBUTION WIDTH 12.4 % (11.6-14.8); WHITE BLOOD COUNT 6.9 K/UL (4.8-10.8)
[2018-01-29 18:30] LABS: ANION GAP 11 mmol/L (5-15); BLOOD UREA NITROGEN 57 mg/dL (7-18); CALCIUM 10.2 MG/DL (8.5-10.1); CARBON DIOXIDE 28 MMOL/L (21-32); CHLORIDE 105 MMOL/L (98-107); CREATININE 3.7 MG/DL (0.55-1.30); POTASSIUM 3.5 MMOL/L (3.5-5.1); SODIUM 144 MMOL/L (136-145)
[2018-01-29 18:34] LABS: INR 1.1 (0.9-1.1)
[2018-01-29 18:41] LABS: ALANINE AMINOTRANSFERASE 70 U/L (12-78); ALBUMIN 3.3 G/DL (3.4-5.0); ALBUMIN/GLOBULIN RATIO 0.5 (1.0-2.7); ALKALINE PHOSPHATASE 88 U/L (46-116); ASPARTATE AMINO TRANSFERASE 192 U/L (15-37); BILIRUBIN,TOTAL 1.5 MG/DL (0.2-1.0)
[2018-01-29 18:42] LABS: BILIRUBIN,DIRECT 0.7 MG/DL (0.0-0.3)
[2018-01-29 19:40] VITALS: BP 155/89
[2018-01-29] MEDS ORDERED: Aspirin Baby 81mg ORAL ONE (19:45)
[2018-01-29 20:07] LABS: APPEARANCE,URINE SLIGHTLY CLOUDY; BILIRUBIN, URINE NEGATIVE (NEGATIVE); GLUCOSE, URINE (UA) NEGATIVE (NEGATIVE); KETONES,URINE 1+ (NEGATIVE); LEUKOCYTE ESTERASE ,URINE NEGATIVE (NEGATIVE); NITRITE,URINE NEGATIVE (NEGATIVE); PH,URINE 5 (4.5-8.0); PROTEIN,URINE 2+ (NEGATIVE); UROBILINOGEN,URINE 1 MG/DL (0.0-1.0)
[2018-01-29 20:09] LABS: COLOR,URINE YELLOW
[2018-01-29 21:10] VITALS: BP 150/88
[2018-01-29] MEDS ORDERED: Morphine Sulfate 4mg/ml Inj IM PRN (21:35)
[2018-01-29 21:56] LABS: AMMONIA 74 umol/L (11-32)
[2018-01-29 22:09] LABS: % IRON SATURATION 31 % (15-50); IRON 99 ug/dL (50-175); TOTAL IRON BINDING CAPACITY 315 ug/dL (250-450)
[2018-01-29 22:16] LABS: CHOLESTEROL 168 MG/DL (< 200); FERRITIN 880 NG/ML (8-388); HDL CHOLESTEROL 63 MG/DL (40-60); TRIGLYCERIDES 92 MG/DL (30-150)
[2018-01-29] MEDS ORDERED: Heparin 5000 units/ml inj SUBQ SCH (22:30)
[2018-01-29 22:45] VITALS: BP 123/84
[2018-01-29] MEDS ORDERED: Lactulose 20gm/30ml UDC ORAL ONE (23:15)
[2018-01-30] VITALS: BP 171/77
[2018-01-30 04:00] VITALS: BP 114/64
[2018-01-30 08:00] VITALS: BP 115/66
[2018-01-30 08:13] LABS: HEMATOCRIT 31.1 % (42.0-52.0); MEAN CORPUSCULAR VOLUME 100 FL (80-99); PLATELET COUNT 139 K/UL (150-450); RED CELL DISTRIBUTION WIDTH 12.5 % (11.6-14.8); WHITE BLOOD COUNT 6.5 K/UL (4.8-10.8)
[2018-01-30 08:34] LABS: ALANINE AMINOTRANSFERASE 64 U/L (12-78); ALBUMIN 2.6 G/DL (3.4-5.0); ALBUMIN/GLOBULIN RATIO 0.4 (1.0-2.7); ALKALINE PHOSPHATASE 80 U/L (46-116); ANION GAP 7 mmol/L (5-15); ASPARTATE AMINO TRANSFERASE 192 U/L (15-37); BILIRUBIN,TOTAL 1.2 MG/DL (0.2-1.0); BLOOD UREA NITROGEN 52 mg/dL (7-18); CALCIUM 9.5 MG/DL (8.5-10.1); CARBON DIOXIDE 31 MMOL/L (21-32); CHLORIDE 106 MMOL/L (98-107); CREATININE 2.9 MG/DL (0.55-1.30); POTASSIUM 2.9 MMOL/L (3.5-5.1); SODIUM 144 MMOL/L (136-145)
[2018-01-30 08:37] LABS: BILIRUBIN,DIRECT 0.5 MG/DL (0.0-0.3)
[2018-01-30] MEDS ORDERED: Docusate 100mg cap ORAL SCH (09:00)
[2018-01-30] MEDS: Heparin 5000 units/ml inj SUBQ SCH ×2 (09:00→21:03)
--- NOTE | 2018-01-30 09:07 | History & Physical ---
History and Physical History & Physicial seen and examined. Dict completed Isabel Dangelo MD Jan 30, 2018 09:07
[2018-01-30] MEDS ORDERED: Sodium Chloride 500ML 550 ML IV SCH (10:00)
[2018-01-30 12:00] VITALS: BP 140/70
--- NOTE | 2018-01-30 12:14 | Consultation ---
Consult Note Consult Note asked to eval for renal failure- 66-year-old male presents to the emergency department brought by ambulance for altered mental status and inappropriate behavior. According to EMS they were called earlier today for similar symptoms and patient did not want to be transported. Patient was said to be rolling around on the ground so bystander called 911 and this time EMS decided to transport. Upon arrival patient is nonverbal he is lethargic, and only responsive to painful stimuli. Patient is not cooperative and can answer questions. Eventually patient became more responsive to verbal stimuli however unable to form sentences or make a brief and simple words. History and ROS is limited. Allergies: PENICILLINS (Verified Allergy, Unknown, 02/10/17) Past Medical History: No History, Except For Hx Cardiac Problems: Yes Hx Hypertension: Yes Hx Diabetes: Yes Hx Gastrointestinal Problems: Yes Hx Neurological Problems: Yes - ICH Hx Cerebrovascular Accident: Yes Hx Speech Problem: Yes Hx Headaches: Yes admitted for renal failure, Encephalopathy , NSTMI . Assessment/Plan Acute Renal failure ? On Chronic Others: 1. 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 2. 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 3. h/o Hepatitis C. 4. h/o Peripheral neuropathy. DC HCTZ DC ARBs change IV fluid Flomax Monitor renal parameters per orders MART MOREIRA Jan 30, 2018 12:14
--- NOTE | 2018-01-30 13:38 | Cardiac Electrophysiology PN ---
Subjective Subjective [id number] Objective Last 24 Hour Vital Signs Date Time Temp Pulse Resp B/P (MAP) Pulse Ox O2 Delivery O2 Flow Rate FiO2 01/30/18 12:00 98.0 52 20 140/70 99 Room Air 98.0 01/30/18 10:58 60 115/66 01/30/18 10:57 60 115/66 01/30/18 08:00 98.1 60 20 115/66 99 Room Air 98.1 01/30/18 07:48 53 01/30/18 04:00 68 01/30/18 04:00 98.6 51 20 114/64 100 Room Air 98.6 01/30/18 00:12 63 171/77 01/30/18 00:11 171/77 01/30/18 00:00 97.7 63 18 171/77 100 Room Air 97.7 01/30/18 00:00 78 01/29/18 23:15 98.2 76 15 123/84 100 Room Air 98.2 01/29/18 22:45 98.2 76 15 123/84 100 Room Air 98.2 01/29/18 21:10 68 16 150/88 98 Room Air 01/29/18 19:40 98.1 74 17 155/89 99 Room Air 98.1 01/29/18 17:39 98.2 70 18 169/91 97 Room Air 98.2 01/29/18 15:33 98.0 104 16 163/98 98 Room Air 98.1 Intake and Output 01/29/18 01/30/18 19:00 07:00 Intake Total 0 ml 300 ml Balance 0 ml 300 ml Intake Oral 0 ml 300 ml Laboratory Tests Test 01/29/18 17:45 01/30/18 07:15 01/30/18 10:40 White Blood Count 6.9 K/UL (4.8-10.8) 6.5 K/UL (4.8-10.8) Red Blood Count 3.53 M/UL (4.70-6.10) L 3.10 M/UL (4.70-6.10) L Hemoglobin 12.1 G/DL (14.2-18.0) L 11.0 G/DL (14.2-18.0) L Hematocrit 35.0 % (42.0-52.0) L 31.1 % (42.0-52.0) L Mean Corpuscular Volume 99 FL (80-99) 100 FL (80-99) H Mean Corpuscular Hemoglobin 34.3 PG (27.0-31.0) H 35.4 PG (27.0-31.0) H Mean Corpuscular Hemoglobin Concent 34.7 G/DL (32.0-36.0) 35.3 G/DL (32.0-36.0) Red Cell Distribution Width 12.4 % (11.6-14.8) 12.5 % (11.6-14.8) Platelet Count 155 K/UL (150-450) 139 K/UL (150-450) L Mean Platelet Volume 8.5 FL (6.5-10.1) 8.5 FL (6.5-10.1) Neutrophils (%) (Auto) 47.9 % (45.0-75.0) % (45.0-75.0) Lymphocytes (%) (Auto) 38.3 % (20.0-45.0) % (20.0-45.0) Monocytes (%) (Auto) 11.2 % (1.0-10.0) H % (1.0-10.0) Eosinophils (%) (Auto) 1.2 % (0.0-3.0) % (0.0-3.0) Basophils (%) (Auto) 1.4 % (0.0-2.0) % (0.0-2.0) Prothrombin Time 12.0 SEC (9.30-11.50) H Prothromb Time International Ratio 1.1 (0.9-1.1) Activated Partial Thromboplast Time 26 SEC (23-33) Urine Color Yellow Urine Appearance Slightly cloudy Urine pH 5 (4.5-8.0) Urine Specific [place] 1.025 (1.005-1.035) Urine Protein 2+ (NEGATIVE) H Urine Glucose (UA) Negative (NEGATIVE) Urine Ketones 1+ (NEGATIVE) H Urine Occult Blood 5+ (NEGATIVE) H Urine Nitrite Negative (NEGATIVE) Urine Bilirubin Negative (NEGATIVE) Urine Urobilinogen 1 MG/DL (0.0-1.0) H Urine Leukocyte Esterase Negative (NEGATIVE) Urine RBC 2-4 /HPF (0 - 0) H Urine WBC 0-2 /HPF (0 - 0) Urine Squamous Epithelial Cells None /LPF (NONE/OCC) Urine Amorphous Sediment Moderate /LPF (NONE) H Urine Bacteria Few /HPF (NONE) Sodium Level 144 MMOL/L (136-145) 144 MMOL/L (136-145) Potassium Level 3.5 MMOL/L (3.5-5.1) 2.9 MMOL/L (3.5-5.1) L Chloride Level 105 MMOL/L (98-107) 106 MMOL/L (98-107) Carbon Dioxide Level 28 MMOL/L (21-32) 31 MMOL/L (21-32) Anion Gap 11 mmol/L (5-15) 7 mmol/L (5-15) Blood Urea Nitrogen 57 mg/dL (7-18) H 52 mg/dL (7-18) H Creatinine 3.7 MG/DL (0.55-1.30) H 2.9 MG/DL (0.55-1.30) H Estimat Glomerular Filtration Rate 20.2 mL/min (>60) 26.9 mL/min (>60) Glucose Level 97 MG/DL (74-106) 83 MG/DL (74-106) Hemoglobin A1c 5.5 % (4.3-6.0) Calcium Level 10.2 MG/DL (8.5-10.1) H 9.5 MG/DL (8.5-10.1) Iron Level 99 ug/dL (50-175) Total Iron Binding Capacity 315 ug/dL (250-450) Percent Iron Saturation 31 % (15-50) Unsaturated Iron Binding 216 ug/dL (112-346) Ferritin 880 NG/ML (8-388) H Total Bilirubin 1.5 MG/DL (0.2-1.0) H 1.2 MG/DL (0.2-1.0) H Direct Bilirubin 0.7 MG/DL (0.0-0.3) H 0.5 MG/DL (0.0-0.3) H Aspartate Amino Transf (AST/SGOT) 192 U/L (15-37) H 192 U/L (15-37) H Alanine Aminotransferase (ALT/SGPT) 70 U/L (12-78) 64 U/L (12-78) Alkaline Phosphatase 88 U/L (46-116) 80 U/L (46-116) Ammonia 74 umol/L (11-32) H Troponin I 0.133 ng/mL (0.000-0.056) 0.142 ng/mL (0.000-0.056) Pro-B-Type Natriuretic Peptide 402 pg/mL (0-125) H Total Protein 10.2 G/DL (6.4-8.2) H 8.8 G/DL (6.4-8.2) H Albumin 3.3 G/DL (3.4-5.0) L 2.6 G/DL (3.4-5.0) L Globulin 6.9 g/dL 6.2 g/dL Albumin/Globulin Ratio 0.5 (1.0-2.7) L 0.4 (1.0-2.7) L Triglycerides Level 92 MG/DL (30-150) Cholesterol Level 168 MG/DL (< 200) LDL Cholesterol 89 mg/dL (<100) HDL Cholesterol 63 MG/DL (40-60) H Cholesterol/HDL Ratio 2.7 (3.3-4.4) L Free Thyroxine 1.56 NG/DL (0.76-1.46) H Urine Opiates Screen Negative (NEGATIVE) Urine Barbiturates Screen Negative (NEGATIVE) Phencyclidine (PCP) Screen Negative (NEGATIVE) Urine Amphetamines Screen Negative (NEGATIVE) Urine Benzodiazepines Screen Negative (NEGATIVE) Urine Cocaine Screen Negative (NEGATIVE) Urine Marijuana (THC) Screen Negative (NEGATIVE) Serum Alcohol < 3 mg/dL Differential Total Cells Counted 100 Neutrophils % (Manual) 35 % (45-75) L Lymphocytes % (Manual) 49 % (20-45) H Monocytes % (Manual) 10 % (1-10) Eosinophils % (Manual) 5 % (0-3) H Basophils % (Manual) 1 % (0-2) Band Neutrophils 0 % (0-8) Platelet Estimate Decreased L Platelet Morphology Normal Hypochromasia 1+ Anisocytosis 1+ C-Reactive Protein, Quantitative 0.5 mg/dL (0.00-0.90) Hepatitis A IgM Antibody Pending Hepatitis B Surface Antigen Pending Hepatitis B Core IgM Antibody Pending Hepatitis C Antibody Pending Grover Montenegro MD Jan 30, 2018 13:38
--- NOTE | 2018-01-30 14:17 | Consultation ---
Consult Note Consult Note NEUROLOGY CONSULTATION: Full note dictated #[id number] 62 y/o, RH, BM with PH of HTN, DM, DL, Hepatitis, Strokes, headaches, a psychiatric illness and smoking. He was brought into the hospital on 01/29/18 for inappropriate behavior. He has since been admitted for renal failure, encephalopathy, and a NSTMI. ON EXAM: Problems with orientation, recent and remote memory, VSF, HCF and language. Dysarthria. Left VII central facial paresis. 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 Left brisker than right but globally diminished DTRs. L>R paraparetic gait. IMPRESSION: Multifactorial encephalopathy. Left > Right paresis - due to old +/- new CVD. REC: Continue ASA BP/BS/Lipid control. Correct hyperammonemia. MRI of brain Carotid Duplex Labs for treatable causes of encephalopathy. Stop smoking. PT/OT/SLT. Observe. Aric Rouse M.D., M.S.P.ARIC HAMMER Jan 30, 2018 14:17
[2018-01-30 16:00] VITALS: BP 149/89
[2018-01-30] MEDS: Nitroglycerin Patch 0.2mg/hr TDERMAL SCH (16:57)
[2018-01-30] MEDS: D5 1/2NS 1,000 ML IV SCH (16:57)
[2018-01-30] MEDS: Docusate 100mg cap ORAL SCH (17:27)
[2018-01-30] MEDS: Tamsulosin 0.4mg cap ORAL SCH (17:27)
[2018-01-30 20:00] VITALS: BP 110/61
--- NOTE | 2018-01-30 20:15 | History and Physical Report ---
DATE OF ADMISSION: 01/29/2018 SOURCE OF INFORMATION: EMR. HISTORY OF PRESENT ILLNESS: The patient is a 62-year-old male. At the time of evaluation, the patient is drowsy. He is AO x1. There is limited source of information. However, appears comfortable. Per the ER documentation, the patient has been transferred by the 911 call when he was found to show inappropriate behavior on the street. No reported history of seizure activities, or shortness of breath or chest pain, had been reported. At the time of evaluation, there is no abnormal bleeding. No headache. REVIEW OF SYSTEMS: All 12 elements of review of systems reviewed with the patient. Pertinent positive and negative as above. ALLERGIES: Penicillin. SOCIAL HISTORY: Unobtainable. CURRENT MEDICATIONS: The current doses of medication including but not limited to, Avapro 75 mg daily, hydrochlorothiazide 25 mg daily, gabapentin 300 mg 3 times a day, Coreg 3.125 mg b.i.d. IMAGING: CT scan of the head is obtained and shows the chronic age related changes. Negative for acute changes. PHYSICAL EXAMINATION: VITAL SIGNS: Blood pressure 120/60, temperature 98.2, pulse oximetry 98% on room air, pulse rate 50, respiratory rate 18. HEAD AND NECK: Atraumatic and normocephalic. CHEST: Clear to auscultation. No wheeze, no crackles. ABDOMEN: Soft. No organomegaly. MUSCULOSKELETAL: Atrophied musculature, spontaneous movement of all 4 extremities. NEUROLOGIC: Awake, alert, oriented x1. LABORATORY DATA: Labs dated 01/30/2018 shows WBC 6.8, hemoglobin 11, platelets of 139. Sodium 144, potassium 3.9, BUN 52, creatinine 2.9. A1c 5.5, ferritin 800. AST 192. Troponin was 0.13. T4 1.5. ASSESSMENT AND PLAN: 1. Acute encephalopathy, multifactorial. 2. Anemia. 3. Abnormal liver function tests. 4. Acute on chronic renal failure. 5. Hyperlipidemia. 6. Gastrointestinal and deep vein thrombosis prophylaxes. PLAN OF CARE: Provide supplementation. Continue with the intravenous hydration. Nephrology, Dr. Manzano, notified. We will monitor the serum troponin levels. We will check the serum TSH level. Isabel Dangelo M.D. DR: SOY JOB#: [id number] CC:
[2018-01-31] VITALS: BP 124/65
--- NOTE | 2018-01-31 01:00 | Consultation ---
DATE OF CONSULTATION: 01/30/2018 NEUROLOGY CONSULTATION CONSULTING PHYSICIAN: Faheem Rouse M.D. REQUESTING PHYSICIAN: Isabel Dangelo M.D. HISTORY: Mr. Cy Grewal is a 62-year-old, right-handed, black gentleman, who does have a past history of hypertension, diabetes mellitus, dyslipidemia, hepatitis, strokes, headaches, and a psychiatric illness. He was functioning relatively well, living on the streets until 01/30/2018 when he was apparently behaving in an appropriate manner and was rolling around on the ground. The paramedics were called in and went to see him, but he refused to come to the hospital. They were again called in because of inappropriate behavior and as a result of that, they brought him to the [facility] emergency room. Since then, he has been admitted for renal failure, an encephalopathy, and a non-ST elevation myocardial infarction. This consultation was requested to evaluate the patient for his altered mental state. As per the patient, he feels that his mind is clear at this point in time. He however says that he is having increasing problems with walking. He is unable to tell me if one side is weaker than the other. He does slur his speech, but he is unable to tell me if the slurring his worse than his baseline or not. He denies any problems with his vision, problems understanding language, or other neurological symptoms. PAST MEDICAL HISTORY: Significant for hypertension, diabetes mellitus, dyslipidemia, hepatitis, strokes, headaches, and a psychiatric illness. FAMILY HISTORY: Nothing significant as per the patient. PERSONAL HISTORY: Home: He is homeless and lives on the streets. 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 Habits: He smokes approximately half a pack of cigarettes per day and has been smoking for numerous years. He used to drink in the past, but stopped drinking numerous years ago. He used to use multiple drugs in the past, but has stopped using them for many years. MEDICATIONS: Present medications include amlodipine, atorvastatin, Protonix, Colace, Flomax, aspirin 81 mg daily, aspirin 325 mg daily, nitroglycerin, heparin for DVT prophylaxis, carvedilol, gabapentin 300 mg three times a day, and morphine 4 mg as needed. PHYSICAL EXAMINATION: GENERAL: He is a well-developed, well-nourished, pleasant black gentleman, sitting up at the edge of his bed, in no acute distress. VITAL SIGNS: Pulse 52 per minute, blood pressure 140/70 mmHg, respirations 20 per minute, and temperature 98 degrees Fahrenheit. HEAD: Normocephalic and atraumatic. NECK: No neck rigidity was observed. EENT: Examination benign. NEUROLOGIC EXAMINATION: MENTAL STATUS EXAMINATION: He was awake and alert. He was oriented to [facility], [facility], and January. He did not know the date or the year. He was able to recall 3/3 words immediately, but could only remember 2/3 words in 1 minute and 1/3 words in 3 minutes. He was able to remember presidents, Trump and Obama, but could not remember presidents prior to that. His mathematical skills were impaired. His visuospatial function was also impaired. SPEECH: He had a moderate dysarthria, but it should be noted that he was edentulous. LANGUAGE: He had anomia for low and mid frequency words. CRANIAL NERVE EXAMINATION: II: The visual hayes were intact to confrontation testing. III, IV & : The external ocular movements were full and the pupils 3 mm in diameter, equal, round, regular, and reactive to light. V: He had normal facial sensations and the temporales, masseters, and pterygoids functioned normally. VII: He had left seventh central facial paresis. VIII: He was able to hear well bilaterally and had no nystagmus. IX: The palate moved symmetrically on phonation. X: He had no hoarseness of voice. XI: The sternocleidomastoids and trapezii functioned normally. XII: The tongue was in the midline without any fasciculations or atrophy. MOTOR SYSTEM: The tone was minimally increased in both lower extremities with a mild degree of spasticity. Examination of muscle mass revealed generalized muscle wasting. Examination of power revealed G 5/5 power except for G 4/5 power in the right iliopsoas, G 3/5 power in the left iliopsoas, G 4+/5 power in the ankle dorsiflexors and toe extensors bilaterally. SENSORY EXAMINATION: He had intact sensations to pinprick and light touch, but complained of a subjective alteration over his entire left body. REFLEXES: 1+ on the right and 1++ on the left at the biceps, triceps, brachioradialis, and knees, 0 at both ankles. The plantar responses were flexor bilaterally. STANCE: He stood up with support on the right side. GAIT: He walked with support on the right side with left greater than right paraparetic gait. DIAGNOSTIC IMPRESSION: 1. Mr. Cy Grewal is a 62-year-old, right-handed, black gentleman, with a past history of hypertension, diabetes mellitus, dyslipidemia, hepatitis, strokes, headaches, and a psychiatric illness, who was brought in for inappropriate behavior, and has since been admitted for renal failure, encephalopathy and a non-ST elevation myocardial infarction. 2. On neurological examination, at this time, he does have problems with orientation, recent and remote memory, visuospatial function, higher cognitive function, and language. He also has a definite dysarthria, a left seventh central facial paresis, left greater than right paraparesis, with globally diminished reflexes that are slightly brisker on the left than on the right, decreased sensations over his left body and left greater than right paraparetic gait. 3. The CT scan of the brain without contrast reveals atrophy and deep white matter disease, consistent with underlying deep white matter cerebrovascular disease. 4. Laboratory data revealed that he was anemic with a hemoglobin of 11.0. His chemistry panel revealed that his BUN was elevated to 52 with a creatinine of 2.9. In addition, he also had a hyperammonemia with an ammonia of 74, his total bilirubin was elevated to 1.2 and his AST was elevated at 192. His free T4 was elevated at 1.56. His urinalysis was relatively benign. His toxicology screen is negative. 5. The patient's history, neurological examination, CT scan findings, and laboratory data are most compatible with a multifactorial encephalopathy, most probably related to his underlying structural brain disease with super-added elevation in his BUN and creatinine and hyperammonemia. 6. He also has a left greater than right paresis, which may be related to old versus new versus a combination of old and new cerebrovascular disease. RECOMMENDATIONS: 1. Agree with management thus far. 2. Would continue aspirin 81 mg daily for now. 3. The patient's blood pressure, blood sugar, and lipids should be controlled. 4. His hyperammonemia should be corrected. 5. An MRI scan of the brain will be ordered to evaluate the patient for acute versus chronic intracranial pathology. 6. A Carotid duplex will be ordered to evaluate the patient for hemodynamically significant carotid disease. 7. Laboratory data will be obtained to evaluate the patient for other treatable causes of encephalopathy. 8. The patient was told to stop smoking immediately. 9. He should be started on a course of physical, occupational, and speech and language therapy. 10. The patient will be observed closely and depending on how he fares over the next day or so, further recommendations will be given. Thank you for entrusting me with the care of Mr. Grewal. I shall follow him with you. Faheem Rouse M.D., M.S.P.H. DR: Micheal JOB#: [id number] MTDD
[2018-01-31] MEDS: D5 1/2NS 1,000 ML IV SCH ×3 (02:31→22:00)
[2018-01-31 04:00] VITALS: BP 110/62
--- NOTE | 2018-01-31 04:45 | Consultation ---
DATE OF CONSULTATION: 01/30/2018 CARDIOLOGY CONSULTATION CONSULTING PHYSICIAN: Grover Montenegro M.D. REFERRING PHYSICIAN: Isabel Dangelo M.D. REASON FOR CONSULTATION: Management of hypertension and abnormal electrocardiogram suggestive of anterolateral and inferior ischemia. HISTORY OF PRESENT ILLNESS: The patient is a 62-year-old gentleman with history of hypertension and neuropathy, who was brought to the emergency room altered mental status and inappropriate behavior. The patient was rolling around on the ground, so has called 911. At that time, EMS decided to transfer. The patient was lethargic and nonverbal on arrival, however, responds to painful stimuli. The patient's EKG was also abnormal suggestive of inferior and anterolateral ischemia. The patient was admitted and a Cardiology consultation was obtained for further evaluation. REVIEW OF SYSTEMS: Negative other than what was mentioned in the history of present illness. PAST MEDICAL HISTORY: 1. Hypertension. 2. Diabetes. 3. History of CVA. 4. Aspiration problem. FAMILY HISTORY: Noncontributory. PHYSICAL EXAMINATION: VITAL SIGNS: Blood pressure is 140/70, pulse 62, respirations 18, and he is afebrile. HEAD AND NECK: Showed no JVD. LUNGS: Coarse rhonchi. CARDIOVASCULAR: Shows regular S1 and S2 with no gallop. ABDOMEN: Soft. EXTREMITIES: A 1+ pitting edema. LABORATORY AND DIAGNOSTIC DATA: His labs show white count 6.5, hemoglobin 11, hematocrit 31, and platelet count is 139. Sodium is 144, potassium 2.9, creatinine of 2.9, and glucose of 83. Troponin is 0.142. BNP is 402. Troponin is 0.133 as well. 1.5. Initial white count was 3.7. Urine toxicology was negative. CT of the brain chronic intracranial bleed or mass effect. ASSESSMENT AND PLAN: 1. Non-ST elevation myocardial infarction by elevated troponin and inferolateral EKG changes. The patient, however, denies any chest pain. We will treat the patient medically with aspirin, Lipitor, and Coreg. We will get an echocardiogram to evaluate for ejection fraction and wall motion abnormality and repeat EKG and cardiac enzymes. 2. Hypertension. Continue Norvasc and Coreg. Avoid GUANAKITO inhibitors in view of renal failure. 3. Acute renal failure. Creatinine 3.5. 4. Hyperlipidemia, on Lipitor. 5. Altered mental status. The head CT was negative. Further evaluation by Neurology could be metabolic and urine toxicology screen was also negative. 6. Diabetes. 7. Hyperammonemia. The patient received lactulose. Ammonia level was 74. Thank you very much, Dr. Dangelo, for allowing me to participate in the care of this patient. Please do not hesitate to contact me for any questions regarding my evaluation. Grover Montenegro M.D. DR: Sherman JOB#: [id number] CC:
--- NOTE | 2018-01-31 07:35 | General Progress Note ---
Assessment/Plan Status: unchanged Assessment/Plan 1. Acute encephalopathy, multifactorial. 2.Acute Anemia. 3. Abnormal liver function tests. 4. Abnormal Troponin 4. Acute on chronic renal failure. 5. Hyperlipidemia. 6. Gastrointestinal and deep vein thrombosis prophylaxes. Plan: Trend Trop pending echo check stool OB pending MRI-Brain Subjective ROS Limited/Unobtainable: Yes - limited eval. lethargic Allergies: Coded Allergies: PENICILLINS (Verified Allergy, Unknown, 02/10/17) Objective Last 24 Hour Vital Signs Date Time Temp Pulse Resp B/P (MAP) Pulse Ox O2 Delivery O2 Flow Rate FiO2 01/31/18 04:00 54 01/31/18 04:00 97.2 54 16 110/62 98 Room Air 97.2 01/31/18 00:00 48 01/31/18 00:00 97.3 55 16 124/65 96 Room Air 97.3 01/30/18 21:00 52 110/61 01/30/18 20:00 78 01/30/18 20:00 97.2 52 16 110/61 96 Room Air 97.2 01/30/18 16:57 140/70 01/30/18 16:00 97.8 68 18 149/89 100 Room Air 97.8 01/30/18 15:41 53 01/30/18 12:00 98.0 52 20 140/70 99 Room Air 98.0 01/30/18 11:39 55 01/30/18 10:58 60 115/66 01/30/18 10:57 60 115/66 01/30/18 08:00 98.1 60 20 115/66 99 Room Air 98.1 01/30/18 07:48 53 Intake and Output 01/30/18 01/31/18 19:00 07:00 Intake Total 600 ml 1100 ml Balance 600 ml 1100 ml Intake Oral 600 ml IV Total 1100 ml Laboratory Tests 01/30/18 10:40: Erythrocyte Sedimentation Rate 105H, Vitamin B12 Level 543, Vitamin D 25- Hydroxy [Pending], 25-Hydroxy Vitamin D2 [Pending], 25-Hydroxy Vitamin D3 [ Pending], Folate 18.9, Rapid Plasma Reagin [Pending], Hepatitis A IgM Antibody [ Pending], Hepatitis B Surface Antigen [Pending], Hepatitis B Core IgM Antibody [ Pending], Hepatitis C Antibody [Pending] Height (Feet): 6 Height (Inches): 3.00 Weight (Pounds): 191 General Appearance: no apparent distress EENT: PERRL/EOMI Neck: supple Cardiovascular: bradycardia Respiratory/Chest: lungs clear Abdomen: soft Extremities: non-tender, other - no gross lateralized motor deficeiet Neurologic: disoriented Isabel Dangelo MD Jan 31, 2018 07:35
[2018-01-31 08:00] VITALS: BP 112/64
[2018-01-31] MEDS: Heparin 5000 units/ml inj SUBQ SCH ×2 (09:00→20:46)
[2018-01-31] MEDS: Aspirin Baby 81mg ORAL SCH (09:08)
[2018-01-31] MEDS: Docusate 100mg cap ORAL SCH ×3 (09:08→17:44)
[2018-01-31] MEDS: Tamsulosin 0.4mg cap ORAL SCH ×2 (09:08→17:23)
[2018-01-31] MEDS ORDERED: D5 1/2NS 1000ml IV ONE (09:56)
[2018-01-31] MEDS ORDERED: NS 500ML ONE (09:56)
--- NOTE | 2018-01-31 10:46 | Diagnostic Imaging Report ---
Indication:Abdominal pain Technique: Grayscale and duplex Doppler imaging of the abdomen performed. Comparison: None Findings: High-resolution images of the liver surface demonstrate nodularity. Liver shows a slightly coarsened echotexture. Findings are suspicious for chronic disease or cirrhosis. There is no ascites. CBD is not well seen but no obvious biliary ductal dilatation is appreciated. The demonstrated part of the pancreas, gallbladder, aorta and IVC, both kidneys, spleen appear unremarkable. There is no biliary ductal dilatation identified. Doppler evaluation of the main portal vein shows patency. No hydronephrosis seen. Impression: Suspected chronic liver disease/cirrhosis. Correlate clinically. No ascites or splenomegaly associated with this.
[2018-01-31 12:00] VITALS: BP 112/57
--- NOTE | 2018-01-31 12:30 | Nephrology Progress Note ---
Assessment/Plan Problem List: (1) Acute renal failure Assessment: Cr lowering (2) Anemia (3) Hyperammonemia Assessment Acute Renal failure ? On Chronic Anemia Others: 1. 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 2. 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 3. h/o Hepatitis C. 4. h/o Peripheral neuropathy. Plan Lactulose- DC HCTZ DC ARBs change IV fluid Flomax Monitor renal parameters per orders Subjective ROS Limited/Unobtainable: No Constitutional: Reports: malaise, weakness Objective Objective Last 24 Hour Vital Signs Date Time Temp Pulse Resp B/P (MAP) Pulse Ox O2 Delivery O2 Flow Rate FiO2 01/31/18 09:08 69 112/64 01/31/18 09:08 69 112/64 01/31/18 08:00 98.8 69 18 112/64 97 Room Air 98.8 01/31/18 07:25 55 01/31/18 04:00 54 01/31/18 04:00 97.2 54 16 110/62 98 Room Air 97.2 01/31/18 00:00 48 01/31/18 00:00 97.3 55 16 124/65 96 Room Air 97.3 01/30/18 21:00 52 110/61 01/30/18 20:00 78 01/30/18 20:00 97.2 52 16 110/61 96 Room Air 97.2 01/30/18 16:57 140/70 01/30/18 16:00 97.8 68 18 149/89 100 Room Air 97.8 01/30/18 15:41 53 Intake and Output 01/30/18 01/31/18 19:00 07:00 Intake Total 600 ml 1100 ml Balance 600 ml 1100 ml Intake Oral 600 ml IV Total 1100 ml Height (Feet): 6 Height (Inches): 3.00 Weight (Pounds): 191 General Appearance: no apparent distress Cardiovascular: normal rate Respiratory/Chest: decreased breath sounds Abdomen: soft MART MOREIRA Jan 31, 2018 12:30
[2018-01-31 12:44] LABS: HEMATOCRIT 31.2 % (42.0-52.0); HEMOGLOBIN 10.6 G/DL (14.2-18.0); MEAN CORPUSCULAR VOLUME 101 FL (80-99); PLATELET COUNT 109 K/UL (150-450); RED BLOOD COUNT 3.09 M/UL (4.70-6.10); RED CELL DISTRIBUTION WIDTH 12.7 % (11.6-14.8); WHITE BLOOD COUNT 4.4 K/UL (4.8-10.8)
[2018-01-31 12:59] LABS: AMMONIA 155 umol/L (11-32)
[2018-01-31 13:01] LABS: ALANINE AMINOTRANSFERASE 57 U/L (12-78); ALBUMIN 2.2 G/DL (3.4-5.0); ALBUMIN/GLOBULIN RATIO 0.4 (1.0-2.7); ALKALINE PHOSPHATASE 79 U/L (46-116); ANION GAP 7 mmol/L (5-15); ASPARTATE AMINO TRANSFERASE 161 U/L (15-37); BILIRUBIN,TOTAL 0.6 MG/DL (0.2-1.0); BLOOD UREA NITROGEN 42 mg/dL (7-18); CALCIUM 8.6 MG/DL (8.5-10.1); CARBON DIOXIDE 28 MMOL/L (21-32); CHLORIDE 105 MMOL/L (98-107); CREATININE 1.9 MG/DL (0.55-1.30); POTASSIUM 3.7 MMOL/L (3.5-5.1); SODIUM 140 MMOL/L (136-145)
[2018-01-31 13:12] LABS: CHOLESTEROL 129 MG/DL (< 200); GAMMA GLUTAMYL TRANSPEPTIDASE 107 U/L (5-85); HDL CHOLESTEROL 46 MG/DL (40-60); PHOSPHORUS 3.1 MG/DL (2.5-4.9); TRIGLYCERIDES 55 MG/DL (30-150)
--- NOTE | 2018-01-31 13:36 | Neurology Progress Note ---
Interim History Interim History Interim History Mr. Grewal feels better today. The mind is clearer. He has not noticed any new neurologic symptoms. He denies any weakness on one side or the other, numbness on one side or the other, problems with speech, problems with language, or other neurologic symptoms. He has not been out of bed today. Review of Systems Neuro Review of Systems Benign. Objective Physical Exam Last Vital Signs Date Time Temp Pulse Resp B/P (MAP) Pulse Ox O2 Delivery O2 Flow Rate FiO2 01/31/18 09:08 69 112/64 01/31/18 08:00 98.8 18 97 Room Air 98.8 Laboratory Tests Test 01/31/18 12:20 White Blood Count 4.4 K/UL (4.8-10.8) L Red Blood Count 3.09 M/UL (4.70-6.10) L Hemoglobin 10.6 G/DL (14.2-18.0) L Hematocrit 31.2 % (42.0-52.0) L Mean Corpuscular Volume 101 FL (80-99) H Mean Corpuscular Hemoglobin 34.3 PG (27.0-31.0) H Mean Corpuscular Hemoglobin Concent 34.0 G/DL (32.0-36.0) Red Cell Distribution Width 12.7 % (11.6-14.8) Platelet Count 109 K/UL (150-450) L Mean Platelet Volume 10.2 FL (6.5-10.1) H Neutrophils (%) (Auto) % (45.0-75.0) Lymphocytes (%) (Auto) % (20.0-45.0) Monocytes (%) (Auto) % (1.0-10.0) Eosinophils (%) (Auto) % (0.0-3.0) Basophils (%) (Auto) % (0.0-2.0) Neutrophils % (Manual) Pending Lymphocytes % (Manual) Pending Platelet Estimate Pending Platelet Morphology Pending Sodium Level 140 MMOL/L (136-145) Potassium Level 3.7 MMOL/L (3.5-5.1) Chloride Level 105 MMOL/L (98-107) Carbon Dioxide Level 28 MMOL/L (21-32) Anion Gap 7 mmol/L (5-15) Blood Urea Nitrogen 42 mg/dL (7-18) H Creatinine 1.9 MG/DL (0.55-1.30) H Estimat Glomerular Filtration Rate 43.8 mL/min (>60) Glucose Level 98 MG/DL (74-106) Uric Acid 11.1 MG/DL (2.6-7.2) H Calcium Level 8.6 MG/DL (8.5-10.1) Phosphorus Level 3.1 MG/DL (2.5-4.9) Magnesium Level 1.9 MG/DL (1.8-2.4) Total Bilirubin 0.6 MG/DL (0.2-1.0) Gamma Glutamyl Transpeptidase 107 U/L (5-85) H Aspartate Amino Transf (AST/SGOT) 161 U/L (15-37) H Alanine Aminotransferase (ALT/SGPT) 57 U/L (12-78) Alkaline Phosphatase 79 U/L (46-116) Ammonia 155 umol/L (11-32) H Troponin I Pending Pro-B-Type Natriuretic Peptide 266 pg/mL (0-125) H Total Protein 7.7 G/DL (6.4-8.2) Albumin 2.2 G/DL (3.4-5.0) L Globulin 5.5 g/dL Albumin/Globulin Ratio 0.4 (1.0-2.7) L Triglycerides Level 55 MG/DL (30-150) Cholesterol Level 129 MG/DL (< 200) LDL Cholesterol 76 mg/dL (<100) HDL Cholesterol 46 MG/DL (40-60) Cholesterol/HDL Ratio 2.8 (3.3-4.4) L Thyroid Stimulating Hormone (TSH) 0.440 uiU/mL (0.358-3.740) Free Thyroxine 1.41 NG/DL (0.76-1.46) Neurologic Exam Objective PHYSICAL EXAMINATION: GENERAL: He is a well-developed, well-nourished, pleasant black gentleman, lying bed, in no acute distress. HEAD: Normocephalic and atraumatic. NECK: No neck rigidity was observed. EENT: Examination benign. NEUROLOGIC EXAMINATION: MENTAL STATUS EXAMINATION: He was awake and alert. He was oriented to [facility], [facility], and January. He did not know the date or the year. He was able to recall 3/3 words immediately, but could only remember 2/3 words in 1 minute and 1/3 words in 3 minutes. He was able to remember presidents, Trump and Obama, but could not remember presidents prior to that. His mathematical skills were impaired. His visuospatial function was also impaired. SPEECH: He had a mild dysarthria, but it should be noted that he was edentulous. LANGUAGE: He had anomia for low and mid frequency words. CRANIAL NERVE EXAMINATION: II: The visual hayes were intact to confrontation testing. III, IV & : The external ocular movements were full and the pupils 3 mm in diameter, equal, round, regular, and reactive to light. V: He had normal facial sensations, and the temporales, masseters, and pterygoids functioned normally. VII: He had left seventh central facial paresis. VIII: He was able to hear well bilaterally and had no nystagmus. IX: The palate moved symmetrically on phonation. X: He had no hoarseness of voice. XI: The sternocleidomastoids and trapezii functioned normally. XII: The tongue was in the midline without any fasciculations or atrophy. MOTOR SYSTEM: The tone was minimally increased in both lower extremities with a mild degree of spasticity. Examination of muscle mass revealed generalized muscle wasting. Examination of power revealed G 5/5 power except for G 4/5 power in the right iliopsoas, G 3/5 power in the left iliopsoas, G 4+/5 power in the ankle dorsiflexors and toe extensors bilaterally. SENSORY EXAMINATION: He had intact sensations to pinprick and light touch, but complained of a subjective alteration over his entire left body. REFLEXES: 1+ on the right and 1++ on the left at the biceps, triceps, brachioradialis, and knees, 0 at both ankles. The plantar responses were flexor bilaterally. STANCE: He stood up with support on the right side. GAIT: He walked with support on the right side with a left greater than right paraparetic gait. ABNORMAL MOVEMENTS: Asterixis: G 1/4 in both UEs. Impression/Recommendations Diagnostic Impression 1. Mr. Cy Grewal is a 62-year-old, right-handed, black gentleman, with a past history of hypertension, diabetes mellitus, dyslipidemia, hepatitis, strokes, headaches, and a psychiatric illness, who was brought in for inappropriate behavior, and has since been admitted for renal failure, an encephalopathy and a non-ST elevation myocardial infarction. 2. He feels better today. The mind is clearer. There have been no behavioral problems. He has not noticed any new neurologic symptoms. 3. On neurological examination, at this time, he does have problems with orientation, recent and remote memory, visuospatial function, higher cognitive function, and language. He also has a mild dysarthria, a left seventh central facial paresis, left greater than right paraparesis, with globally diminished reflexes that are slightly brisker on the left than on the right, decreased sensations over his left body, a left greater than right paraparetic gait, and bilateral upper extremity asterixis. 4. The CT scan of the brain without contrast reveals atrophy and deep white matter disease, consistent with underlying deep white matter cerebrovascular disease. 5. Laboratory data on my initial evaluation revealed that he was anemic with a hemoglobin of 11.0. His chemistry panel revealed that his BUN was elevated to 52 with a creatinine of 2.9. In addition, he also had a hyperammonemia with an ammonia of 74, his total bilirubin was elevated to 1.2 and his AST was elevated at 192. His free T4 was elevated at 1.56. His urinalysis was relatively benign. His toxicology screen is negative. 6. Further laboratory tests have revealed that his ammonia has elevated to 155, and his ESR is elevated at 105. 7. The patient's history, neurological examination, CT scan findings, and laboratory data are most compatible with a multifactorial encephalopathy, most probably related to his underlying structural brain disease with super-added elevation in his BUN and creatinine and hyperammonemia. 8. The left greater than right paresis, may be related to old versus new versus a combination of old and new cerebrovascular disease. Recommendations 1. Continues present management. 2. Continue aspirin 81 mg daily for now. 3. The patient's blood pressure, blood sugar, and lipids should be controlled. 4. His hyperammonemia should be corrected - will give 3 doses of Laculose today. 5. An MRI scan of the brain has been ordered to evaluate the patient for acute versus chronic intracranial pathology. 6. A Carotid duplex has been ordered to evaluate the patient for hemodynamically significant carotid disease. 7. Await other laboratory data to evaluate the patient for other treatable causes of encephalopathy. 8. The patient was told to stop smoking immediately again. 9. He should be started on a course of physical, occupational, and speech and language therapy. 10. Observe. Aric Martinez M.D., [place]. ARIC MARTINEZ Jan 31, 2018 13:36
[2018-01-31] MEDS: Lactulose 20gm/30ml UDC ORAL SCH ×3 (14:42→19:52)
--- NOTE | 2018-01-31 14:51 | Cardiac Electrophysiology PN ---
Assessment/Plan Assessment/Plan 1. Non-ST elevation myocardial infarction by elevated troponin and inferolateral EKG changes. The patient, however, denies any chest pain. Continue aspirin, Lipitor, and Coreg. Troponin levels are flat and likely due to renal failure as Cr was 3 Echocardiogram showed Ef 60%. 2. Hypertension. Continue Norvasc and Coreg. Avoid GUANAKITO inhibitors in view of renal failure. 3. Acute renal failure. Creatinine 3.5. 4. Hyperlipidemia, on Lipitor. 5. Altered mental status. The head CT was negative. Likely due to high ammonia level 6. Diabetes. 7. Hyperammonemia. The patient received lactulose. Ammonia level was 74. DW RN Subjective Subjective Confused as ammonia level is high. RN at bedside. Objective Last 24 Hour Vital Signs Date Time Temp Pulse Resp B/P (MAP) Pulse Ox O2 Delivery O2 Flow Rate FiO2 01/31/18 11:37 52 01/31/18 09:08 69 112/64 01/31/18 09:08 69 112/64 01/31/18 08:00 98.8 69 18 112/64 97 Room Air 98.8 01/31/18 07:25 55 01/31/18 04:00 54 01/31/18 04:00 97.2 54 16 110/62 98 Room Air 97.2 01/31/18 00:00 48 01/31/18 00:00 97.3 55 16 124/65 96 Room Air 97.3 01/30/18 21:00 52 110/61 01/30/18 20:00 78 01/30/18 20:00 97.2 52 16 110/61 96 Room Air 97.2 01/30/18 16:57 140/70 01/30/18 16:00 97.8 68 18 149/89 100 Room Air 97.8 01/30/18 15:41 53 Intake and Output 01/30/18 01/31/18 19:00 07:00 Intake Total 600 ml 1100 ml Balance 600 ml 1100 ml Intake Oral 600 ml IV Total 1100 ml Laboratory Tests Test 01/31/18 12:20 White Blood Count 4.4 K/UL (4.8-10.8) L Red Blood Count 3.09 M/UL (4.70-6.10) L Hemoglobin 10.6 G/DL (14.2-18.0) L Hematocrit 31.2 % (42.0-52.0) L Mean Corpuscular Volume 101 FL (80-99) H Mean Corpuscular Hemoglobin 34.3 PG (27.0-31.0) H Mean Corpuscular Hemoglobin Concent 34.0 G/DL (32.0-36.0) Red Cell Distribution Width 12.7 % (11.6-14.8) Platelet Count 109 K/UL (150-450) L Mean Platelet Volume 10.2 FL (6.5-10.1) H Neutrophils (%) (Auto) % (45.0-75.0) Lymphocytes (%) (Auto) % (20.0-45.0) Monocytes (%) (Auto) % (1.0-10.0) Eosinophils (%) (Auto) % (0.0-3.0) Basophils (%) (Auto) % (0.0-2.0) Differential Total Cells Counted 100 Neutrophils % (Manual) 27 % (45-75) L Lymphocytes % (Manual) 59 % (20-45) H Monocytes % (Manual) 11 % (1-10) H Eosinophils % (Manual) 3 % (0-3) Basophils % (Manual) 0 % (0-2) Band Neutrophils 0 % (0-8) Platelet Estimate Decreased L Platelet Morphology Normal Macrocytosis 1+ Sodium Level 140 MMOL/L (136-145) Potassium Level 3.7 MMOL/L (3.5-5.1) Chloride Level 105 MMOL/L (98-107) Carbon Dioxide Level 28 MMOL/L (21-32) Anion Gap 7 mmol/L (5-15) Blood Urea Nitrogen 42 mg/dL (7-18) H Creatinine 1.9 MG/DL (0.55-1.30) H Estimat Glomerular Filtration Rate 43.8 mL/min (>60) Glucose Level 98 MG/DL (74-106) Uric Acid 11.1 MG/DL (2.6-7.2) H Calcium Level 8.6 MG/DL (8.5-10.1) Phosphorus Level 3.1 MG/DL (2.5-4.9) Magnesium Level 1.9 MG/DL (1.8-2.4) Total Bilirubin 0.6 MG/DL (0.2-1.0) Gamma Glutamyl Transpeptidase 107 U/L (5-85) H Aspartate Amino Transf (AST/SGOT) 161 U/L (15-37) H Alanine Aminotransferase (ALT/SGPT) 57 U/L (12-78) Alkaline Phosphatase 79 U/L (46-116) Ammonia 155 umol/L (11-32) H Troponin I 0.061 ng/mL (0.000-0.056) Pro-B-Type Natriuretic Peptide 266 pg/mL (0-125) H Total Protein 7.7 G/DL (6.4-8.2) Albumin 2.2 G/DL (3.4-5.0) L Globulin 5.5 g/dL Albumin/Globulin Ratio 0.4 (1.0-2.7) L Triglycerides Level 55 MG/DL (30-150) Cholesterol Level 129 MG/DL (< 200) LDL Cholesterol 76 mg/dL (<100) HDL Cholesterol 46 MG/DL (40-60) Cholesterol/HDL Ratio 2.8 (3.3-4.4) L Thyroid Stimulating Hormone (TSH) 0.440 uiU/mL (0.358-3.740) Free Thyroxine 1.41 NG/DL (0.76-1.46) Objective HEAD AND NECK: No JVD. LUNGS: Coarse rhonchi. CARDIOVASCULAR: Regular S1 and S2 with no gallop. ABDOMEN: Soft. EXTREMITIES: 1+ pitting edema. Grover Montenegro MD Jan 31, 2018 14:51
[2018-01-31 16:00] VITALS: BP 139/75
--- NOTE | 2018-01-31 17:05 | Cardiology Report ---
APPROVED REPORT EKG Measurement Heart [id number] Sinus bradycardia with sinus arrhythmia Moderate voltage criteria for LVH, may be normal variant Prolonged QT Abnormal ECG
--- NOTE | 2018-01-31 17:43 | Cardiology Report ---
APPROVED REPORT EKG Measurement Heart [id number] Normal sinus rhythm Minimal voltage criteria for LVH, may be normal variant Septal infarct, age undetermined T wave abnormality, consider inferior ischemia T wave abnormality, consider anterolateral ischemia Prolonged QT Abnormal ECG
[2018-01-31] MEDS: Nitroglycerin Patch 0.2mg/hr TDERMAL SCH (17:44)
[2018-01-31 20:00] VITALS: BP 134/75
[2018-02-01] VITALS: BP_SYST 127; BP_SYST 98; BP_DIAS 65; BP_DIAS 77
[2018-02-01 03:40] VITALS: BP 143/80
[2018-02-01 08:00] VITALS: BP 132/78
[2018-02-01] MEDS: D5 1/2NS 1,000 ML IV SCH ×2 (08:00→18:00)
[2018-02-01] MEDS: Heparin 5000 units/ml inj SUBQ SCH ×2 (09:00→21:00)
--- NOTE | 2018-02-01 09:16 | General Progress Note ---
Assessment/Plan Status: stable Assessment/Plan 1. Acute encephalopathy, multifactorial. 2.Acute Anemia. 3. Abnormal liver function tests. 4. Abnormal Troponin 4. Acute on chronic renal failure. 5. Hyperlipidemia. 6. Gastrointestinal and deep vein thrombosis prophylaxes. Plan: Down-Trend of Trop check stool OB pending MRI-Brain SW for placement Subjective ROS Limited/Unobtainable: Yes Allergies: Coded Allergies: PENICILLINS (Verified Allergy, Unknown, 02/10/17) Objective Last 24 Hour Vital Signs Date Time Temp Pulse Resp B/P (MAP) Pulse Ox O2 Delivery O2 Flow Rate FiO2 02/01/18 08:00 97.7 52 20 132/78 97 97.7 02/01/18 04:00 57 02/01/18 03:40 98.0 61 20 143/80 97 Room Air 98.0 02/01/18 00:00 97.3 57 20 127/77 95 Room Air 97.3 02/01/18 00:00 61 01/31/18 20:52 67 134/75 01/31/18 20:00 97.9 67 19 134/75 96 Room Air 97.9 01/31/18 20:00 61 01/31/18 17:44 139/75 01/31/18 16:00 97.9 87 19 139/75 98 Room Air 97.9 01/31/18 15:33 53 01/31/18 12:00 98.4 62 17 112/57 96 Room Air 98.4 01/31/18 11:37 52 Intake and Output 01/31/18 02/01/18 19:00 07:00 Intake Total 2300 ml 850 ml Output Total 1000 ml Balance 1300 ml 850 ml IV Total 1100 ml Other 1200 ml 850 ml Output Urine Total 1000 ml # Voids 4 # Bowel Movements 1 6 Laboratory Tests 01/31/18 12:20: White Blood Count 4.4L, Red Blood Count 3.09L, Hemoglobin 10.6L, Hematocrit 31.2L, Mean Corpuscular Volume 101H, Mean Corpuscular Hemoglobin 34.3H, Mean Corpuscular Hemoglobin Concent 34.0, Red Cell Distribution Width 12.7, Platelet Count 109L, Mean Platelet Volume 10.2H, Neutrophils (%) (Auto) , Lymphocytes (% ) (Auto) , Monocytes (%) (Auto) , Eosinophils (%) (Auto) , Basophils (%) (Auto) , Differential Total Cells Counted 100, Neutrophils % (Manual) 27L, Lymphocytes % (Manual) 59H, Monocytes % (Manual) 11H, Eosinophils % (Manual) 3, Basophils % (Manual) 0, Band Neutrophils 0, Platelet Estimate DecreasedL, Platelet Morphology Normal, Macrocytosis 1+, Sodium Level 140, Potassium Level 3.7, Chloride Level 105, Carbon Dioxide Level 28, Anion Gap 7, Blood Urea Nitrogen 42H, Creatinine 1.9H, Estimat Glomerular Filtration Rate 43.8, Glucose Level 98 , Uric Acid 11.1H, Calcium Level 8.6, Phosphorus Level 3.1, Magnesium Level 1.9 , Total Bilirubin 0.6, Gamma Glutamyl Transpeptidase 107H, Aspartate Amino Transf (AST/SGOT) 161H, Alanine Aminotransferase (ALT/SGPT) 57, Alkaline Phosphatase 79, Ammonia 155H, Troponin I 0.061H, Pro-B-Type Natriuretic Peptide 266H, Total Protein 7.7, Albumin 2.2L, Globulin 5.5, Albumin/Globulin Ratio 0.4L , Triglycerides Level 55, Cholesterol Level 129, LDL Cholesterol 76, HDL Cholesterol 46, Cholesterol/HDL Ratio 2.8L, Thyroid Stimulating Hormone (TSH) 0.440, Free Thyroxine 1.41 01/31/18 23:00: Stool Occult Blood [Pending] Height (Feet): 6 Height (Inches): 3.00 Weight (Pounds): 191 General Appearance: no apparent distress EENT: PERRL/EOMI Neck: supple Cardiovascular: normal rate Respiratory/Chest: lungs clear Abdomen: soft Extremities: non-tender Neurologic: disoriented, other - lethargic Isabel Dangelo MD Feb 01, 2018 09:16
--- NOTE | 2018-02-01 10:59 | Cardiology Report ---
APPROVED REPORT EXAM: Two-dimensional and M-mode echocardiogram with Doppler and color Doppler. INDICATION Altered mental status M-Mode DIMENSIONS IVSd1.3 (0.7-1.1cm)Left Atrium (MM)3.0 (1.6-4.0cm) LVDd4.5 (3.5-5.6cm)Aortic Root3.6 (2.0-3.7cm) PWd1.4 (0.7-1.1cm)Aortic Cusp Exc.2.5 (1.5-2.0cm) LVDs2.4 (2.5-4.0cm) PWs2.3 cm Normal left ventricular chamber size, systolic function and wall motion. Left ventricular ejection fraction estimated to be 60 %. Mild left ventricular hypertrophy. No evidence of pericardial effusion. Left atrial size at upper limits of normal. Right cardiac chamber sizes are within normal limits. Focal aortic valve sclerosis with adequate cusp excursion. Mildly thickened mitral valve leaflets with normal excursion. Mild mitral annulus and aortic root calcification. Normal pulmonic valve structure. Normal tricuspid valve structure. IVC dilated at 3.0 without physiological collapse, estimated RAP is 20 mmHg. A color flow and spectral Doppler study was performed and revealed: No aortic insufficiency. Mild mitral regurgitation. Mitral inflow velocities indicates possible pseudo normalization pattern implying significant left ventricular diastolic dysfunction (Grade II). Mild tricuspid regurgitation. Tricuspid systolic velocities suggests peak right ventricular systolic pressure of 44 mmHg, consistent with mild pulmonary hypertension. No pulmonic regurgitation present.
--- NOTE | 2018-02-01 11:11 | Cardiac Electrophysiology PN ---
Assessment/Plan Assessment/Plan 1. Non-ST elevation myocardial infarction type 2 by elevated troponin and inferolateral EKG changes. The patient denies any chest pain. Continue aspirin, Lipitor, and Coreg. Troponin levels are flat and likely due to renal failure as Cr was 3.5 Echocardiogram showed Ef 60%. 2. Hypertension. Continue Norvasc and Coreg. Avoid GUANAKITO inhibitors in view of renal failure. 3. Acute renal failure. Creatinine 3.5. 4. Hyperlipidemia, on Lipitor. 5. Altered mental status. The head CT was negative. Likely due to high ammonia level. MRI brain done today. 6. Diabetes. 7. Hyperammonemia. Betetr on lactulose. DODIE RN and Dr Rouse Subjective Subjective More alert. Just came back from MRI brain. RN at bedside. Objective Last 24 Hour Vital Signs Date Time Temp Pulse Resp B/P (MAP) Pulse Ox O2 Delivery O2 Flow Rate FiO2 02/01/18 08:00 97.7 52 20 132/78 97 97.7 02/01/18 08:00 54 02/01/18 04:00 57 02/01/18 03:40 98.0 61 20 143/80 97 Room Air 98.0 02/01/18 00:00 97.3 57 20 127/77 95 Room Air 97.3 02/01/18 00:00 61 01/31/18 20:52 67 134/75 01/31/18 20:00 97.9 67 19 134/75 96 Room Air 97.9 01/31/18 20:00 61 01/31/18 17:44 139/75 01/31/18 16:00 97.9 87 19 139/75 98 Room Air 97.9 01/31/18 15:33 53 01/31/18 12:00 98.4 62 17 112/57 96 Room Air 98.4 01/31/18 11:37 52 Intake and Output 01/31/18 02/01/18 19:00 07:00 Intake Total 2300 ml 850 ml Output Total 1000 ml Balance 1300 ml 850 ml IV Total 1100 ml Other 1200 ml 850 ml Output Urine Total 1000 ml # Voids 4 # Bowel Movements 1 6 Laboratory Tests Test 01/31/18 12:20 01/31/18 23:00 White Blood Count 4.4 K/UL (4.8-10.8) L Red Blood Count 3.09 M/UL (4.70-6.10) L Hemoglobin 10.6 G/DL (14.2-18.0) L Hematocrit 31.2 % (42.0-52.0) L Mean Corpuscular Volume 101 FL (80-99) H Mean Corpuscular Hemoglobin 34.3 PG (27.0-31.0) H Mean Corpuscular Hemoglobin Concent 34.0 G/DL (32.0-36.0) Red Cell Distribution Width 12.7 % (11.6-14.8) Platelet Count 109 K/UL (150-450) L Mean Platelet Volume 10.2 FL (6.5-10.1) H Neutrophils (%) (Auto) % (45.0-75.0) Lymphocytes (%) (Auto) % (20.0-45.0) Monocytes (%) (Auto) % (1.0-10.0) Eosinophils (%) (Auto) % (0.0-3.0) Basophils (%) (Auto) % (0.0-2.0) Differential Total Cells Counted 100 Neutrophils % (Manual) 27 % (45-75) L Lymphocytes % (Manual) 59 % (20-45) H Monocytes % (Manual) 11 % (1-10) H Eosinophils % (Manual) 3 % (0-3) Basophils % (Manual) 0 % (0-2) Band Neutrophils 0 % (0-8) Platelet Estimate Decreased L Platelet Morphology Normal Macrocytosis 1+ Sodium Level 140 MMOL/L (136-145) Potassium Level 3.7 MMOL/L (3.5-5.1) Chloride Level 105 MMOL/L (98-107) Carbon Dioxide Level 28 MMOL/L (21-32) Anion Gap 7 mmol/L (5-15) Blood Urea Nitrogen 42 mg/dL (7-18) H Creatinine 1.9 MG/DL (0.55-1.30) H Estimat Glomerular Filtration Rate 43.8 mL/min (>60) Glucose Level 98 MG/DL (74-106) Uric Acid 11.1 MG/DL (2.6-7.2) H Calcium Level 8.6 MG/DL (8.5-10.1) Phosphorus Level 3.1 MG/DL (2.5-4.9) Magnesium Level 1.9 MG/DL (1.8-2.4) Total Bilirubin 0.6 MG/DL (0.2-1.0) Gamma Glutamyl Transpeptidase 107 U/L (5-85) H Aspartate Amino Transf (AST/SGOT) 161 U/L (15-37) H Alanine Aminotransferase (ALT/SGPT) 57 U/L (12-78) Alkaline Phosphatase 79 U/L (46-116) Ammonia 155 umol/L (11-32) H Troponin I 0.061 ng/mL (0.000-0.056) Pro-B-Type Natriuretic Peptide 266 pg/mL (0-125) H Total Protein 7.7 G/DL (6.4-8.2) Albumin 2.2 G/DL (3.4-5.0) L Globulin 5.5 g/dL Albumin/Globulin Ratio 0.4 (1.0-2.7) L Triglycerides Level 55 MG/DL (30-150) Cholesterol Level 129 MG/DL (< 200) LDL Cholesterol 76 mg/dL (<100) HDL Cholesterol 46 MG/DL (40-60) Cholesterol/HDL Ratio 2.8 (3.3-4.4) L Thyroid Stimulating Hormone (TSH) 0.440 uiU/mL (0.358-3.740) Free Thyroxine 1.41 NG/DL (0.76-1.46) Stool Occult Blood Negative (NEGATIVE) Microbiology Date/Time Source Procedure Growth Status 01/29/18 22:53 Nasal Nares MRSA Culture - Final NO METHICILLIN RESISTANT STAPH AUREUS... Complete 01/29/18 22:53 Rectum VRE Culture - Final NO VANCOMYCIN RESISTANT ENTEROCOCCUS ... Complete Objective HEAD AND NECK: No JVD. LUNGS: Coarse rhonchi. CARDIOVASCULAR: Regular S1 and S2 with no gallop. ABDOMEN: Soft. EXTREMITIES: 1+ pitting edema. Grover Montenegro MD Feb 01, 2018 11:11
[2018-02-01] MEDS: Aspirin Baby 81mg ORAL SCH (11:12)
[2018-02-01] MEDS: Tamsulosin 0.4mg cap ORAL SCH ×2 (11:12→17:13)
[2018-02-01] MEDS: Docusate 100mg cap ORAL SCH ×3 (11:13→17:13)
--- NOTE | 2018-02-01 11:13 | Neurology Progress Note ---
Interim History Interim History Interim History Mr. Grewal feels better. The mind is clearer. He has not noticed any new neurologic symptoms. He denies any weakness on one side or the other, numbness on one side or the other, problems with speech, problems with language, or other neurologic symptoms. He has not been out of bed today except for going for his MRI scan. Review of Systems Neuro Review of Systems Benign. Objective Physical Exam Last Vital Signs Date Time Temp Pulse Resp B/P (MAP) Pulse Ox O2 Delivery O2 Flow Rate FiO2 02/01/18 08:00 97.7 52 20 132/78 97 97.7 02/01/18 03:40 Room Air Laboratory Tests Test 01/31/18 12:20 01/31/18 23:00 White Blood Count 4.4 K/UL (4.8-10.8) L Red Blood Count 3.09 M/UL (4.70-6.10) L Hemoglobin 10.6 G/DL (14.2-18.0) L Hematocrit 31.2 % (42.0-52.0) L Mean Corpuscular Volume 101 FL (80-99) H Mean Corpuscular Hemoglobin 34.3 PG (27.0-31.0) H Mean Corpuscular Hemoglobin Concent 34.0 G/DL (32.0-36.0) Red Cell Distribution Width 12.7 % (11.6-14.8) Platelet Count 109 K/UL (150-450) L Mean Platelet Volume 10.2 FL (6.5-10.1) H Neutrophils (%) (Auto) % (45.0-75.0) Lymphocytes (%) (Auto) % (20.0-45.0) Monocytes (%) (Auto) % (1.0-10.0) Eosinophils (%) (Auto) % (0.0-3.0) Basophils (%) (Auto) % (0.0-2.0) Differential Total Cells Counted 100 Neutrophils % (Manual) 27 % (45-75) L Lymphocytes % (Manual) 59 % (20-45) H Monocytes % (Manual) 11 % (1-10) H Eosinophils % (Manual) 3 % (0-3) Basophils % (Manual) 0 % (0-2) Band Neutrophils 0 % (0-8) Platelet Estimate Decreased L Platelet Morphology Normal Macrocytosis 1+ Sodium Level 140 MMOL/L (136-145) Potassium Level 3.7 MMOL/L (3.5-5.1) Chloride Level 105 MMOL/L (98-107) Carbon Dioxide Level 28 MMOL/L (21-32) Anion Gap 7 mmol/L (5-15) Blood Urea Nitrogen 42 mg/dL (7-18) H Creatinine 1.9 MG/DL (0.55-1.30) H Estimat Glomerular Filtration Rate 43.8 mL/min (>60) Glucose Level 98 MG/DL (74-106) Uric Acid 11.1 MG/DL (2.6-7.2) H Calcium Level 8.6 MG/DL (8.5-10.1) Phosphorus Level 3.1 MG/DL (2.5-4.9) Magnesium Level 1.9 MG/DL (1.8-2.4) Total Bilirubin 0.6 MG/DL (0.2-1.0) Gamma Glutamyl Transpeptidase 107 U/L (5-85) H Aspartate Amino Transf (AST/SGOT) 161 U/L (15-37) H Alanine Aminotransferase (ALT/SGPT) 57 U/L (12-78) Alkaline Phosphatase 79 U/L (46-116) Ammonia 155 umol/L (11-32) H Troponin I 0.061 ng/mL (0.000-0.056) Pro-B-Type Natriuretic Peptide 266 pg/mL (0-125) H Total Protein 7.7 G/DL (6.4-8.2) Albumin 2.2 G/DL (3.4-5.0) L Globulin 5.5 g/dL Albumin/Globulin Ratio 0.4 (1.0-2.7) L Triglycerides Level 55 MG/DL (30-150) Cholesterol Level 129 MG/DL (< 200) LDL Cholesterol 76 mg/dL (<100) HDL Cholesterol 46 MG/DL (40-60) Cholesterol/HDL Ratio 2.8 (3.3-4.4) L Thyroid Stimulating Hormone (TSH) 0.440 uiU/mL (0.358-3.740) Free Thyroxine 1.41 NG/DL (0.76-1.46) Stool Occult Blood Negative (NEGATIVE) Neurologic Exam Objective PHYSICAL EXAMINATION: GENERAL: He is a well-developed, well-nourished, pleasant black gentleman, lying bed, in no acute distress. HEAD: Normocephalic and atraumatic. NECK: No neck rigidity was observed. EENT: Examination benign. NEUROLOGIC EXAMINATION: MENTAL STATUS EXAMINATION: He was awake and alert. He was oriented to [facility], [facility] with hints, and January. He did not know the date or the year. He was able to recall 3/3 words immediately, but could only remember 2/3 words in 1 minute and 1/3 words in 3 minutes. He was able to remember presidents, Trump and Obama, but could not remember presidents prior to that. His mathematical skills were impaired. His visuospatial function was also impaired. SPEECH: He had a mild dysarthria, but it should be noted that he was edentulous. LANGUAGE: He had anomia for low and mid frequency words. CRANIAL NERVE EXAMINATION: II: The visual hayes were intact to confrontation testing. III, IV & : The external ocular movements were full and the pupils 3 mm in diameter, equal, round, regular, and reactive to light. V: He had normal facial sensations, and the temporales, masseters, and pterygoids functioned normally. VII: He had left seventh central facial paresis. VIII: He was able to hear well bilaterally and had no nystagmus. IX: The palate moved symmetrically on phonation. X: He had no hoarseness of voice. XI: The sternocleidomastoids and trapezii functioned normally. XII: The tongue was in the midline without any fasciculations or atrophy. MOTOR SYSTEM: The tone was minimally increased in both lower extremities with a mild degree of spasticity. Examination of muscle mass revealed generalized muscle wasting. Examination of power revealed G 5/5 power except for G 4+/5 power in the right iliopsoas, G 4-/5 power in the left iliopsoas, G 4+/5 power in the ankle dorsiflexors and toe extensors bilaterally. SENSORY EXAMINATION: He had intact sensations to pinprick and light touch, but complained of a subjective alteration over his entire left body. REFLEXES: 1+ on the right and 1++ on the left at the biceps, triceps, brachioradialis, and knees, 0 at both ankles. The plantar responses were flexor bilaterally. STANCE: He stood up with support on the right side. GAIT: He walked with support on the right side with a left greater than right paraparetic gait. ABNORMAL MOVEMENTS: Asterixis: G 0/4 in both UEs. Impression/Recommendations Diagnostic Impression 1. Mr. Cy Grewal is a 62-year-old, right-handed, black gentleman, with a past history of hypertension, diabetes mellitus, dyslipidemia, hepatitis, strokes, headaches, and a psychiatric illness, who was brought in for inappropriate behavior, and has since been admitted for renal failure, an encephalopathy and a non-ST elevation myocardial infarction. 2. He feels better today. The mind is clearer. There have been no behavioral problems. He has not noticed any new neurologic symptoms. 3. On neurological examination, at this time, he ie brighter. He does have problems with orientation, recent and remote memory, visuospatial function, higher cognitive function, and language. He also has a mild dysarthria, a left seventh central facial paresis, left greater than right paraparesis, with globally diminished reflexes that are slightly brisker on the left than on the right, decreased sensations over his left body, a left greater than right paraparetic gait, and bilateral upper extremity asterixis. 4. The CT scan of the brain without contrast reveals atrophy and deep white matter disease, consistent with underlying deep white matter cerebrovascular disease. 5. Laboratory data on my initial evaluation revealed that he was anemic with a hemoglobin of 11.0. His chemistry panel revealed that his BUN was elevated to 52 with a creatinine of 2.9. In addition, he also had a hyperammonemia with an ammonia of 74, his total bilirubin was elevated to 1.2 and his AST was elevated at 192. His free T4 was elevated at 1.56. His urinalysis was relatively benign. His toxicology screen is negative. 6. Further laboratory tests have revealed that his ammonia has elevated to 155, and his ESR is elevated at 105. 7. The MRI of the brain was done but the results are still pending. 8. The patient's history, neurological examination, CT scan findings, and laboratory data are most compatible with a multifactorial encephalopathy, most probably related to his underlying structural brain disease with super-added elevation in his BUN and creatinine and hyperammonemia. 9. The left greater than right paresis, may be related to old versus new versus a combination of old and new cerebrovascular disease. Recommendations 1. Continue present management. 2. Continue aspirin 81 mg daily for now. 3. The patient's blood pressure, blood sugar, and lipids should be controlled. 4. Await MRI scan of the brain results. 5. A Carotid duplex has been ordered to evaluate the patient for hemodynamically significant carotid disease. 6. Await other laboratory data to evaluate the patient for other treatable causes of encephalopathy. 7. The patient was told to stop smoking immediately again. 8. He should be started on a course of physical, occupational, and speech and language therapy. 9. Observe. Aric Martinez M.D., M.S.P.Cassi. ARIC MARTINEZ Feb 01, 2018 11:13
[2018-02-01 12:00] VITALS: BP 138/71
--- NOTE | 2018-02-01 12:39 | Nephrology Progress Note ---
Assessment/Plan Problem List: (1) Acute renal failure Assessment: Cr lowering (2) Anemia (3) Hyperammonemia Assessment Acute Renal failure ? On Chronic Anemia Others: 1. 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 2. 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 3. h/o Hepatitis C. 4. h/o Peripheral neuropathy. Plan labs pending Lactulose- DC HCTZ DC ARBs change IV fluid Flomax Monitor renal parameters per orders Subjective ROS Limited/Unobtainable: No Constitutional: Reports: malaise, weakness Objective Objective Last 24 Hour Vital Signs Date Time Temp Pulse Resp B/P (MAP) Pulse Ox O2 Delivery O2 Flow Rate FiO2 02/01/18 12:00 97.2 55 20 138/71 97 97.2 02/01/18 11:13 80 132/78 02/01/18 11:13 54 132/78 02/01/18 08:00 97.7 52 20 132/78 97 97.7 02/01/18 08:00 54 02/01/18 04:00 57 02/01/18 03:40 98.0 61 20 143/80 97 Room Air 98.0 02/01/18 00:00 97.3 57 20 127/77 95 Room Air 97.3 02/01/18 00:00 61 01/31/18 20:52 67 134/75 01/31/18 20:00 97.9 67 19 134/75 96 Room Air 97.9 01/31/18 20:00 61 01/31/18 17:44 139/75 01/31/18 16:00 97.9 87 19 139/75 98 Room Air 97.9 01/31/18 15:33 53 Intake and Output 01/31/18 02/01/18 19:00 07:00 Intake Total 2300 ml 850 ml Output Total 1000 ml Balance 1300 ml 850 ml IV Total 1100 ml Other 1200 ml 850 ml Output Urine Total 1000 ml # Voids 4 # Bowel Movements 1 6 Laboratory Tests 01/31/18 23:00: Stool Occult Blood Negative Height (Feet): 6 Height (Inches): 3.00 Weight (Pounds): 191 General Appearance: no apparent distress, lethargic Cardiovascular: bradycardia Respiratory/Chest: decreased breath sounds Abdomen: distended MRAT MOREIRA Feb 01, 2018 12:39
--- NOTE | 2018-02-01 13:29 | Diagnostic Imaging Report ---
Indication: Altered mental status. Rule out stroke. Technique: MRI the brain performed utilizing T1 sagittal, T2 axial, T1 FLAIR axial, T2 FLAIR axial, T2*GRE and diffusion axial images without gadolinium. Comparison: Head CT 01/29/2019; MRI of the brain 04/15/2017 Findings: There is a 1.3 cm focus of diffusion signal hyperintensity with corresponding dropout on ADC map compatible with acute infarct in the right insular lobe (series 3 image 15). No additional definite focus of diffusion signal hyperintensity identified. Old lacunar infarcts noted in the left basal ganglia, midbrain and john. There are foci of GRE signal dropout in the midbrain compatible with areas of old hemorrhage, unchanged. Unchanged area dropout in the left frontal region with encephalomalacia, possibly post traumatic. Additional scattered areas of GRE signal dropout similar to prior exam in the right morales radiata and bilateral cerebral hemispheres. There is mild atrophy with confluent subcortical and periventricular T2 signal hyperintensity without mass effect. No definite evidence of acute intracranial hemorrhage. No mass effect or midline shift. No focal calvarial lesion is identified. Mastoid air cells and paranasal sinuses are clear. Expected vascular flow voids noted at the skull base. IMPRESSION: Small acute infarct in the right insular lobe. Atrophy and sequela of chronic ischemia/trauma with some small old microhemorrhages, similar to the prior exam. Findings discussed with treating nurse on 2E via telephone conversation. Call placed to ordering physician without response 01/31/18, approx. 13:00. Treating nurse to inform the primary physician.
[2018-02-01 16:00] VITALS: BP 110/69
--- NOTE | 2018-02-01 16:04 | Consultation ---
History of Present Illness General Date patient seen: Feb 01, 2018 Chief Complaint: General Complaint Present Illness HPI 62-year-old male. At the time of evaluation, the patient is drowsy. He is AO x1. There is limited source of information. Allergies: Coded Allergies: PENICILLINS (Verified Allergy, Unknown, 02/10/17) Medication History Scheduled Amlodipine Besylate (Norvasc), 5 MG ORAL BID Amlodipine Besylate* (Amlodipine Besylate*), 10 MG ORAL DAILY, (Reported) Ascorbic Acid* (Ascorbic Acid*), 500 MG ORAL DAILY Aspirin* (Aspir 81*), 81 MG ORAL DAILY, (Reported) Atorvastatin Calcium* (Atorvastatin Calcium*), 40 MG ORAL BEDTIME, (Reported) Carvedilol* (Carvedilol*), 3.125 MG ORAL EVERY 12 HOURS, (Reported) Cefepime Hcl/D5w (Cefepime-Dextrose 2 Gm/50 Ml), 2 GM IVPB EVERY 12 HOURS Gabapentin* (Neurontin*), 100 MG ORAL THREE TIMES A DAY Gabapentin* (Gabapentin*), 300 MG ORAL THREE TIMES A DAY, (Reported) Heparin Sod (Porcine) (Heparin Sodium*), 5,000 UNITS SUBQ EVERY 12 HOURS Insulin Glargine (Lantus), 0 SUBQ BEDTIME, (Reported) Lactulose (Lactulose*), 30 GM ORAL DAILY Lisinopril* (Lisinopril*), 10 MG ORAL DAILY, (Reported) Lisinopril* (Lisinopril*), 20 MG ORAL DAILY No Known Medications* (NKM - No Known Medications*), 0 ., (Reported) Pantoprazole* (Pantoprazole*), 40 MG ORAL DAILY, (Reported) Risperidone* (Risperdal*), 0.25 MG ORAL DAILY, (Reported) [flagy iv], 500 AMP IVPB EVERY 8 HOURS Scheduled PRN Acetaminophen* (Acetaminophen 325MG Tablet*), 650 MG ORAL Q4H PRN Clonidine HCl (Clonidine HCl), 0.1 MG ORAL Q4H PRN Hydrocodone Bit/Acetaminophen 10-325* (Hydrocodon-Acetaminophn 10-325*), 1 EA ORAL Q4H PRN Ibuprofen* (Motrin*), 600 MG ORAL Q8H PRN for For Pain, (Reported) Patient History Limited by: medical condition History Provided By: Patient, Medical Record, PMD Healthcare decision maker Resuscitation status Full Code Advanced Directive on File Review of Systems Psychiatric: Reports: anxiety, depressed feelings, emotional problems Physical Exam General Appearance: no apparent distress, alert, confused, agitated Last 24 Hour Vital Signs Date Time Temp Pulse Resp B/P (MAP) Pulse Ox O2 Delivery O2 Flow Rate FiO2 02/01/18 12:00 61 02/01/18 12:00 97.2 55 20 138/71 97 97.2 02/01/18 11:13 80 132/78 02/01/18 11:13 54 132/78 02/01/18 08:00 97.7 52 20 132/78 97 97.7 02/01/18 08:00 54 02/01/18 04:00 57 02/01/18 03:40 98.0 61 20 143/80 97 Room Air 98.0 02/01/18 00:00 97.3 57 20 127/77 95 Room Air 97.3 02/01/18 00:00 61 01/31/18 20:52 67 134/75 01/31/18 20:00 97.9 67 19 134/75 96 Room Air 97.9 01/31/18 20:00 61 01/31/18 17:44 139/75 Intake and Output 01/31/18 02/01/18 19:00 07:00 Intake Total 2300 ml 850 ml Output Total 1000 ml Balance 1300 ml 850 ml IV Total 1100 ml Other 1200 ml 850 ml Output Urine Total 1000 ml # Voids 4 # Bowel Movements 1 6 Laboratory Tests Test 01/31/18 23:00 Stool Occult Blood Negative (NEGATIVE) Height (Feet): 6 Height (Inches): 3.00 Weight (Pounds): 191 Medications Current Medications Medications (Trade) Dose Ordered Sig/Sharla Route PRN Reason Start Time Stop Time Status Last Admin Dose Admin Amlodipine Besylate (Norvasc) 5 mg DAILY ORAL 01/31/18 09:00 03/02/18 08:59 02/01/18 11:13 Aspirin (ASA) 81 mg DAILY ORAL 01/31/18 09:00 03/02/18 08:59 02/01/18 11:12 Atorvastatin Calcium (Lipitor) 10 mg BEDTIME ORAL 01/30/18 21:00 03/01/18 20:59 01/31/18 20:52 Carvedilol (Coreg) 3.125 mg EVERY 12 HOURS ORAL 01/30/18 09:00 03/01/18 08:59 02/01/18 11:13 Dextrose/Sodium Chloride 1,000 ml @ 100 mls/hr Q10H IV 01/30/18 16:00 03/01/18 15:59 01/31/18 12:35 Docusate Sodium (Colace) 100 mg TID ORAL 01/30/18 18:00 03/01/18 17:59 02/01/18 14:11 Gabapentin (Neurontin) 300 mg THREE TIMES A DAY ORAL 01/30/18 09:00 03/01/18 08:59 02/01/18 14:11 Heparin Sodium (Porcine) (Heparin 5000 units/ml) 5,000 units EVERY 12 HOURS SUBQ 01/30/18 09:00 03/01/18 08:59 01/30/18 21:03 Morphine Sulfate (Morphine Sulfate) 2 mg Q4H PRN IM For Pain 01/29/18 21:35 02/05/18 21:34 01/30/18 03:52 Nitroglycerin (Ntg) 1 patch Q24H TDERMAL 01/30/18 16:00 03/01/18 15:59 01/31/18 17:44 Pantoprazole (Protonix) 40 mg BIAC ORAL 01/30/18 16:30 03/01/18 16:29 02/01/18 06:47 Tamsulosin HCl (Flomax) 0.4 mg BID ORAL 01/30/18 18:00 03/01/18 17:59 02/01/18 11:12 Assessment/Plan Status: doing well, progressing Assessment/Plan schizophrenia encephalopathy -Risperdal -dc Vasile Carson M.D. Feb 01, 2018 16:04
[2018-02-01] MEDS: Nitroglycerin Patch 0.2mg/hr TDERMAL SCH (16:14)
[2018-02-01 16:36] LABS: ANION GAP 8 mmol/L (5-15); BLOOD UREA NITROGEN 27 mg/dL (7-18); CALCIUM 8.5 MG/DL (8.5-10.1); CARBON DIOXIDE 26 MMOL/L (21-32); CHLORIDE 106 MMOL/L (98-107); CREATININE 1.6 MG/DL (0.55-1.30); POTASSIUM 3.8 MMOL/L (3.5-5.1); SODIUM 140 MMOL/L (136-145)
[2018-02-01 16:37] LABS: HEMOGLOBIN 11.2 G/DL (14.2-18.0); MEAN CORPUSCULAR VOLUME 100 FL (80-99); PLATELET COUNT 94 K/UL (150-450); RED CELL DISTRIBUTION WIDTH 12.6 % (11.6-14.8); WHITE BLOOD COUNT 4.7 K/UL (4.8-10.8)
[2018-02-01 16:40] LABS: ALANINE AMINOTRANSFERASE 54 U/L (12-78); ALBUMIN 2.2 G/DL (3.4-5.0); ALBUMIN/GLOBULIN RATIO 0.4 (1.0-2.7); ALKALINE PHOSPHATASE 84 U/L (46-116); ASPARTATE AMINO TRANSFERASE 134 U/L (15-37); BILIRUBIN,TOTAL 0.5 MG/DL (0.2-1.0); PHOSPHORUS 2.7 MG/DL (2.5-4.9)
[2018-02-01] MEDS ORDERED: Heparin 2000 units/Ns 1000ml INJ PRN (19:45)
[2018-02-01] MEDS ORDERED: Lidocaine 1% Plain 30 ml INJ PRN (19:45)
[2018-02-01 19:59] VITALS: BP 129/73
[2018-02-01] MEDS: Dyna-Hex 2% Top Sol 2oz TOPIC SCH (20:00)
[2018-02-02] VITALS: BP 132/69
[2018-02-02 04:00] VITALS: BP 121/62
[2018-02-02] MEDS: D5 1/2NS 1,000 ML IV SCH ×2 (04:00→14:37)
[2018-02-02 08:00] VITALS: BP 150/87
[2018-02-02] MEDS: Heparin 5000 units/ml inj SUBQ SCH ×2 (09:00→20:31)
[2018-02-02] MEDS: Aspirin Baby 81mg ORAL SCH (09:06)
[2018-02-02] MEDS: Tamsulosin 0.4mg cap ORAL SCH ×2 (09:06→18:09)
[2018-02-02] MEDS: Docusate 100mg cap ORAL SCH ×2 (09:06→14:37)
[2018-02-02 09:48] LABS: HEMATOCRIT 34.7 % (42.0-52.0); HEMOGLOBIN 11.8 G/DL (14.2-18.0); MEAN CORPUSCULAR VOLUME 100 FL (80-99); PLATELET COUNT 93 K/UL (150-450); RED BLOOD COUNT 3.46 M/UL (4.70-6.10); RED CELL DISTRIBUTION WIDTH 12.2 % (11.6-14.8); WHITE BLOOD COUNT 4.1 K/UL (4.8-10.8)
[2018-02-02 10:00] LABS: ALANINE AMINOTRANSFERASE 57 U/L (12-78); ALBUMIN 2.2 G/DL (3.4-5.0); ALBUMIN/GLOBULIN RATIO 0.4 (1.0-2.7); ALKALINE PHOSPHATASE 92 U/L (46-116); ANION GAP 6 mmol/L (5-15); ASPARTATE AMINO TRANSFERASE 126 U/L (15-37); BILIRUBIN,TOTAL 0.5 MG/DL (0.2-1.0); BLOOD UREA NITROGEN 25 mg/dL (7-18); CALCIUM 8.4 MG/DL (8.5-10.1); CARBON DIOXIDE 27 MMOL/L (21-32); CHLORIDE 107 MMOL/L (98-107); CREATININE 1.5 MG/DL (0.55-1.30); POTASSIUM 3.9 MMOL/L (3.5-5.1); SODIUM 140 MMOL/L (136-145)
[2018-02-02 12:00] VITALS: BP 138/72
--- NOTE | 2018-02-02 13:13 | General Progress Note ---
Assessment/Plan Status: stable Assessment/Plan 1. Acute Right insular ischemic CVA 2.Acute Anemia. 3. Abnormal liver function tests. 4. Abnormal Troponin 4. Acute on chronic renal failure. 5. Hyperlipidemia. 6. Hepatitis C 6. Gastrointestinal and deep vein thrombosis prophylaxes. Plan: Down-Trend of Trop GI Consult SW for placement Subjective ROS Limited/Unobtainable: No Constitutional: Reports: malaise, weakness Allergies: Coded Allergies: PENICILLINS (Verified Allergy, Unknown, 02/10/17) Objective Last 24 Hour Vital Signs Date Time Temp Pulse Resp B/P (MAP) Pulse Ox O2 Delivery O2 Flow Rate FiO2 02/02/18 12:00 97.6 62 19 138/72 99 Room Air 97.6 02/02/18 09:07 60 150/87 02/02/18 09:06 60 150/87 02/02/18 08:00 97.7 60 18 150/87 97 Room Air 97.7 02/02/18 07:46 58 02/02/18 04:00 96.7 59 19 121/62 96 96.7 02/02/18 04:00 55 02/02/18 00:00 63 02/02/18 00:00 98.1 61 19 132/69 97 98.1 02/01/18 21:01 65 129/73 02/01/18 20:00 63 02/01/18 19:59 97.3 65 18 129/73 97 97.3 02/01/18 16:14 138/71 02/01/18 16:00 60 02/01/18 16:00 98.4 70 20 110/69 98 98.4 Intake and Output 02/01/18 02/02/18 19:00 07:00 Intake Total 260 ml 800 ml Balance 260 ml 800 ml Intake Oral 260 ml Other 800 ml # Voids 5 # Bowel Movements 2 Laboratory Tests 02/01/18 16:00: White Blood Count 4.7L, Red Blood Count 3.20L, Hemoglobin 11.2L, Hematocrit 32.0L, Mean Corpuscular Volume 100H, Mean Corpuscular Hemoglobin 35.1H, Mean Corpuscular Hemoglobin Concent 35.1, Red Cell Distribution Width 12.6, Platelet Count 94L, Mean Platelet Volume 8.3, Neutrophils (%) (Auto) , Lymphocytes (%) ( Auto) , Monocytes (%) (Auto) , Eosinophils (%) (Auto) , Basophils (%) (Auto) , Differential Total Cells Counted 100, Neutrophils % (Manual) 38L, Lymphocytes % (Manual) 51H, Monocytes % (Manual) 7, Eosinophils % (Manual) 3, Basophils % ( Manual) 1, Band Neutrophils 0, Platelet Estimate DecreasedL, Platelet Morphology Normal, Hypochromasia 1+, Anisocytosis 1+, Macrocytosis 1+, Sodium Level 140, Potassium Level 3.8, Chloride Level 106, Carbon Dioxide Level 26, Anion Gap 8, Blood Urea Nitrogen 27H, Creatinine 1.6H, Estimat Glomerular Filtration Rate 53.3, Glucose Level 155H, Uric Acid 9.8H, Calcium Level 8.5, Phosphorus Level 2.7, Magnesium Level 1.6L, Total Bilirubin 0.5, Aspartate Amino Transf (AST/SGOT) 134H, Alanine Aminotransferase (ALT/SGPT) 54, Alkaline Phosphatase 84, Ammonia 89H, Total Protein 7.9, Albumin 2.2L, Globulin 5.7, Albumin/Globulin Ratio 0.4L 02/02/18 09:25: White Blood Count 4.1L, Red Blood Count 3.46L, Hemoglobin 11.8L, Hematocrit 34.7L, Mean Corpuscular Volume 100H, Mean Corpuscular Hemoglobin 34.1H, Mean Corpuscular Hemoglobin Concent 34.1, Red Cell Distribution Width 12.2, Platelet Count 93L, Mean Platelet Volume 7.5, Neutrophils (%) (Auto) , Lymphocytes (%) ( Auto) , Monocytes (%) (Auto) , Eosinophils (%) (Auto) , Basophils (%) (Auto) , Differential Total Cells Counted 100, Neutrophils % (Manual) 33L, Lymphocytes % (Manual) 55H, Monocytes % (Manual) 8, Eosinophils % (Manual) 4H, Basophils % ( Manual) 0, Band Neutrophils 0, Platelet Estimate DecreasedL, Platelet Morphology Normal, Macrocytosis 1+, Sodium Level 140, Potassium Level 3.9, Chloride Level 107, Carbon Dioxide Level 27, Anion Gap 6, Blood Urea Nitrogen 25H, Creatinine 1.5H, Estimat Glomerular Filtration Rate 57.4, Glucose Level 129H, Calcium Level 8.4L, Total Bilirubin 0.5, Aspartate Amino Transf (AST/SGOT ) 126H, Alanine Aminotransferase (ALT/SGPT) 57, Alkaline Phosphatase 92, Total Protein 7.9, Albumin 2.2L, Globulin 5.7, Albumin/Globulin Ratio 0.4L Height (Feet): 6 Height (Inches): 3.00 Weight (Pounds): 191 General Appearance: no apparent distress EENT: PERRL/EOMI Neck: supple Cardiovascular: normal rate Respiratory/Chest: lungs clear Abdomen: soft Neurologic: disoriented, other - limited exam, NO gross lateralized motor deficeit Isabel Dangelo MD February 02, 2018 13:13
--- NOTE | 2018-02-02 13:23 | Nephrology Progress Note ---
Assessment/Plan Problem List: (1) Acute renal failure Assessment: Cr lowering (2) Anemia (3) Hyperammonemia Assessment Acute Renal failure ? On Chronic Anemia Others: 1. 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 2. 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 3. h/o Hepatitis C. 4. h/o Peripheral neuropathy. Plan labs pending Lactulose- DC HCTZ DC ARBs change IV fluid Flomax Monitor renal parameters per orders Subjective ROS Limited/Unobtainable: No Constitutional: Reports: malaise Objective Objective Last 24 Hour Vital Signs Date Time Temp Pulse Resp B/P (MAP) Pulse Ox O2 Delivery O2 Flow Rate FiO2 02/02/18 12:00 97.6 62 19 138/72 99 Room Air 97.6 02/02/18 09:07 60 150/87 02/02/18 09:06 60 150/87 02/02/18 08:00 97.7 60 18 150/87 97 Room Air 97.7 02/02/18 07:46 58 02/02/18 04:00 96.7 59 19 121/62 96 96.7 02/02/18 04:00 55 02/02/18 00:00 63 02/02/18 00:00 98.1 61 19 132/69 97 98.1 02/01/18 21:01 65 129/73 02/01/18 20:00 63 02/01/18 19:59 97.3 65 18 129/73 97 97.3 02/01/18 16:14 138/71 02/01/18 16:00 60 02/01/18 16:00 98.4 70 20 110/69 98 98.4 Intake and Output 02/01/18 02/02/18 19:00 07:00 Intake Total 260 ml 800 ml Balance 260 ml 800 ml Intake Oral 260 ml Other 800 ml # Voids 5 # Bowel Movements 2 Laboratory Tests 02/01/18 16:00: White Blood Count 4.7L, Red Blood Count 3.20L, Hemoglobin 11.2L, Hematocrit 32.0L, Mean Corpuscular Volume 100H, Mean Corpuscular Hemoglobin 35.1H, Mean Corpuscular Hemoglobin Concent 35.1, Red Cell Distribution Width 12.6, Platelet Count 94L, Mean Platelet Volume 8.3, Neutrophils (%) (Auto) , Lymphocytes (%) ( Auto) , Monocytes (%) (Auto) , Eosinophils (%) (Auto) , Basophils (%) (Auto) , Differential Total Cells Counted 100, Neutrophils % (Manual) 38L, Lymphocytes % (Manual) 51H, Monocytes % (Manual) 7, Eosinophils % (Manual) 3, Basophils % ( Manual) 1, Band Neutrophils 0, Platelet Estimate DecreasedL, Platelet Morphology Normal, Hypochromasia 1+, Anisocytosis 1+, Macrocytosis 1+, Sodium Level 140, Potassium Level 3.8, Chloride Level 106, Carbon Dioxide Level 26, Anion Gap 8, Blood Urea Nitrogen 27H, Creatinine 1.6H, Estimat Glomerular Filtration Rate 53.3, Glucose Level 155H, Uric Acid 9.8H, Calcium Level 8.5, Phosphorus Level 2.7, Magnesium Level 1.6L, Total Bilirubin 0.5, Aspartate Amino Transf (AST/SGOT) 134H, Alanine Aminotransferase (ALT/SGPT) 54, Alkaline Phosphatase 84, Ammonia 89H, Total Protein 7.9, Albumin 2.2L, Globulin 5.7, Albumin/Globulin Ratio 0.4L 02/02/18 09:25: White Blood Count 4.1L, Red Blood Count 3.46L, Hemoglobin 11.8L, Hematocrit 34.7L, Mean Corpuscular Volume 100H, Mean Corpuscular Hemoglobin 34.1H, Mean Corpuscular Hemoglobin Concent 34.1, Red Cell Distribution Width 12.2, Platelet Count 93L, Mean Platelet Volume 7.5, Neutrophils (%) (Auto) , Lymphocytes (%) ( Auto) , Monocytes (%) (Auto) , Eosinophils (%) (Auto) , Basophils (%) (Auto) , Differential Total Cells Counted 100, Neutrophils % (Manual) 33L, Lymphocytes % (Manual) 55H, Monocytes % (Manual) 8, Eosinophils % (Manual) 4H, Basophils % ( Manual) 0, Band Neutrophils 0, Platelet Estimate DecreasedL, Platelet Morphology Normal, Macrocytosis 1+, Sodium Level 140, Potassium Level 3.9, Chloride Level 107, Carbon Dioxide Level 27, Anion Gap 6, Blood Urea Nitrogen 25H, Creatinine 1.5H, Estimat Glomerular Filtration Rate 57.4, Glucose Level 129H, Calcium Level 8.4L, Total Bilirubin 0.5, Aspartate Amino Transf (AST/SGOT ) 126H, Alanine Aminotransferase (ALT/SGPT) 57, Alkaline Phosphatase 92, Total Protein 7.9, Albumin 2.2L, Globulin 5.7, Albumin/Globulin Ratio 0.4L Height (Feet): 6 Height (Inches): 3.00 Weight (Pounds): 191 General Appearance: no apparent distress MART MOREIRA February 02, 2018 13:23
--- NOTE | 2018-02-02 14:50 | Cardiac Electrophysiology PN ---
Assessment/Plan Assessment/Plan 1. Non-ST elevation myocardial infarction type 2 by elevated troponin and inferolateral EKG changes. The patient denies any chest pain. Continue aspirin, Lipitor, and Coreg. Troponin levels are flat and likely due to renal failure as Cr was 3.5 Echocardiogram showed Ef 60%. Can't follow protocol for stress test 2. Hypertension. Continue Norvasc and Coreg. Avoid GUANAKITO inhibitors in view of renal failure. 3. Acute renal failure. Creatinine 3.5. Today Cr 1.5 4. Hyperlipidemia, on Lipitor. 5. Altered mental status. Follow up neuro and psych.The head CT was negative. Likely due to high ammonia level. MRI brain done 6. Diabetes. 7. Hyperammonemia. Better on lactulose. DW RN and Dr Rouse Subjective Subjective More alert.Just had PICC line placement. RN at bedside.Refused video swallow eval. Objective Last 24 Hour Vital Signs Date Time Temp Pulse Resp B/P (MAP) Pulse Ox O2 Delivery O2 Flow Rate FiO2 02/02/18 12:00 97.6 62 19 138/72 99 Room Air 97.6 02/02/18 09:07 60 150/87 02/02/18 09:06 60 150/87 02/02/18 08:00 97.7 60 18 150/87 97 Room Air 97.7 02/02/18 07:46 58 02/02/18 04:00 96.7 59 19 121/62 96 96.7 02/02/18 04:00 55 02/02/18 00:00 63 02/02/18 00:00 98.1 61 19 132/69 97 98.1 02/01/18 21:01 65 129/73 02/01/18 20:00 63 02/01/18 19:59 97.3 65 18 129/73 97 97.3 02/01/18 16:14 138/71 02/01/18 16:00 60 02/01/18 16:00 98.4 70 20 110/69 98 98.4 Intake and Output 02/01/18 02/02/18 19:00 07:00 Intake Total 260 ml 800 ml Balance 260 ml 800 ml Intake Oral 260 ml Other 800 ml # Voids 5 # Bowel Movements 2 Laboratory Tests Test 02/01/18 16:00 02/02/18 09:25 White Blood Count 4.7 K/UL (4.8-10.8) L 4.1 K/UL (4.8-10.8) L Red Blood Count 3.20 M/UL (4.70-6.10) L 3.46 M/UL (4.70-6.10) L Hemoglobin 11.2 G/DL (14.2-18.0) L 11.8 G/DL (14.2-18.0) L Hematocrit 32.0 % (42.0-52.0) L 34.7 % (42.0-52.0) L Mean Corpuscular Volume 100 FL (80-99) H 100 FL (80-99) H Mean Corpuscular Hemoglobin 35.1 PG (27.0-31.0) H 34.1 PG (27.0-31.0) H Mean Corpuscular Hemoglobin Concent 35.1 G/DL (32.0-36.0) 34.1 G/DL (32.0-36.0) Red Cell Distribution Width 12.6 % (11.6-14.8) 12.2 % (11.6-14.8) Platelet Count 94 K/UL (150-450) L 93 K/UL (150-450) L Mean Platelet Volume 8.3 FL (6.5-10.1) 7.5 FL (6.5-10.1) Neutrophils (%) (Auto) % (45.0-75.0) % (45.0-75.0) Lymphocytes (%) (Auto) % (20.0-45.0) % (20.0-45.0) Monocytes (%) (Auto) % (1.0-10.0) % (1.0-10.0) Eosinophils (%) (Auto) % (0.0-3.0) % (0.0-3.0) Basophils (%) (Auto) % (0.0-2.0) % (0.0-2.0) Differential Total Cells Counted 100 100 Neutrophils % (Manual) 38 % (45-75) L 33 % (45-75) L Lymphocytes % (Manual) 51 % (20-45) H 55 % (20-45) H Monocytes % (Manual) 7 % (1-10) 8 % (1-10) Eosinophils % (Manual) 3 % (0-3) 4 % (0-3) H Basophils % (Manual) 1 % (0-2) 0 % (0-2) Band Neutrophils 0 % (0-8) 0 % (0-8) Platelet Estimate Decreased L Decreased L Platelet Morphology Normal Normal Hypochromasia 1+ Anisocytosis 1+ Macrocytosis 1+ 1+ Sodium Level 140 MMOL/L (136-145) 140 MMOL/L (136-145) Potassium Level 3.8 MMOL/L (3.5-5.1) 3.9 MMOL/L (3.5-5.1) Chloride Level 106 MMOL/L (98-107) 107 MMOL/L (98-107) Carbon Dioxide Level 26 MMOL/L (21-32) 27 MMOL/L (21-32) Anion Gap 8 mmol/L (5-15) 6 mmol/L (5-15) Blood Urea Nitrogen 27 mg/dL (7-18) H 25 mg/dL (7-18) H Creatinine 1.6 MG/DL (0.55-1.30) H 1.5 MG/DL (0.55-1.30) H Estimat Glomerular Filtration Rate 53.3 mL/min (>60) 57.4 mL/min (>60) Glucose Level 155 MG/DL (74-106) H 129 MG/DL (74-106) H Uric Acid 9.8 MG/DL (2.6-7.2) H Calcium Level 8.5 MG/DL (8.5-10.1) 8.4 MG/DL (8.5-10.1) L Phosphorus Level 2.7 MG/DL (2.5-4.9) Magnesium Level 1.6 MG/DL (1.8-2.4) L Total Bilirubin 0.5 MG/DL (0.2-1.0) 0.5 MG/DL (0.2-1.0) Aspartate Amino Transf (AST/SGOT) 134 U/L (15-37) H 126 U/L (15-37) H Alanine Aminotransferase (ALT/SGPT) 54 U/L (12-78) 57 U/L (12-78) Alkaline Phosphatase 84 U/L (46-116) 92 U/L (46-116) Ammonia 89 umol/L (11-32) H Total Protein 7.9 G/DL (6.4-8.2) 7.9 G/DL (6.4-8.2) Albumin 2.2 G/DL (3.4-5.0) L 2.2 G/DL (3.4-5.0) L Globulin 5.7 g/dL 5.7 g/dL Albumin/Globulin Ratio 0.4 (1.0-2.7) L 0.4 (1.0-2.7) L Objective HEAD AND NECK: No JVD. LUNGS: Coarse rhonchi. CARDIOVASCULAR: Regular S1 and S2 with no gallop. ABDOMEN: Soft. EXTREMITIES: 1+ pitting edema. Grover Montenegro MD February 02, 2018 14:50
--- NOTE | 2018-02-02 15:09 | Diagnostic Imaging Report ---
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 The left upper extremity was prepped with alcohol. All elements of maximal sterile barrier technique were followed including usage of a cap, mask, sterile gown, sterile gloves, hand hygiene and a large sterile sheet. Sonographic evaluation of the upper extremity was performed demonstrating a patent and compressible basilic vein. Access was obtained under real-time ultrasound guidance (with utilization of sterile gel and sterile probe cover) and digital image was saved and archived. An .018 wire was introduced. Needle exchanged for a 5 Slovenian peel-away sheath. Measurements were obtained. A 5 [place] dual-lumen Power PICC line catheter was cut to 45 cm and introduced over the wire. Peel-away sheath and wire were removed.Catheter was secured to the skin using 2-0 Prolene suture. Both ports aspirate and flush easily. Fluoroscopic images show distal tip in the superior vena cava. Total fluoroscopic time 0.1 minute Impression: Successful placement of an upper extremity PICC line catheter
[2018-02-02 16:00] VITALS: BP 158/88
--- NOTE | 2018-02-02 16:15 | GI Initial Consult Note ---
Raquel Parker N.PClarita 02/02/18 1615: History of Present Illness General Date patient seen: February 02, 2018 Time patient seen: 15:57 Reason for Hospitalization: General Complaint Referring physician: DELANEY ROWLEY Reason for Consultation: HEPATITIS C Present Illness HPI 66-year-old male presents to the emergency department brought by ambulance for altered mental status and inappropriate behavior. According to EMS they were called earlier today for similar symptoms and patient did not want to be transported. Patient was said to be rolling around on the ground so bystander called 911 and this time EMS decided to transport. Upon arrival patient is nonverbal he is lethargic, and only responsive to painful stimuli. Patient is not cooperative and can answer questions. Eventually patient became more responsive to verbal stimuli however unable to form sentences or make a brief and simple words. History and ROS is limited. GI consulted for hepatitis C. ROS limited, patient seen awake A&O NAD with no active s/sx of N/V/D. Abdominal U/S reviewed suspected chronic liver disease/ cirrhosis. Denies any ETOH use. Labs reviewed show macrocytic hyperchromic anemia, elevated AST, elevated ammonia levels and renal insufficiency. OB stool negative. Unknown history of endoscopy / colonoscopy. Home Meds Active Scripts Gabapentin* (NEURONTIN*) 100 Mg Capsule, 100 MG ORAL THREE TIMES A DAY, #30 CAP 0 Refills Prov:JOSE CRUZ PARKER M.D. 07/01/17 Lactulose (LACTULOSE*) 20 Gm/30 Ml Solution, 30 GM ORAL DAILY for 30 Days, #30 TBS Prov:Tian Hagan MD 04/16/17 Clonidine HCl (Clonidine HCl) 0.1 Mg Tablet, 0.1 MG ORAL Q4H PRN for 30 Days, TAB Prov:Tian Hagan MD 04/16/17 Lisinopril* (LISINOPRIL*) 10 Mg Tablet, 20 MG ORAL DAILY for 30 Days, TAB Prov:Tian Hagan MD 04/16/17 [flagy iv] No Conflict Check, 500 AMP IVPB EVERY 8 HOURS for 18 Days Prov:Tian Hagan MD 03/05/17 Cefepime Hcl/D5w (CEFEPIME-DEXTROSE 2 GM/50 ML) 2 Gm/50 Ml Piggyback, 2 GM IVPB EVERY 12 HOURS for 18 Days, BAG Prov:Tian Hagan MD 03/05/17 Hydrocodone Bit/Acetaminophen 10-325* (HYDROCODON-ACETAMINOPHN 10-325*) 1 Each Tablet, 1 EA ORAL Q4H PRN for 30 Days, TAB Prov:Tian Hagan MD 03/05/17 Heparin Sod (Porcine) (HEPARIN SODIUM*) 5 000/1 Ml Vial, 5000 UNITS SUBQ EVERY 12 HOURS for 30 Days, VIAL Prov:Tian Hagan MD 03/05/17 Ascorbic Acid* (ASCORBIC ACID*) 500 Mg Tablet, 500 MG ORAL DAILY for 30 Days, TAB Prov:Tian Hagan MD 03/05/17 Amlodipine Besylate (Norvasc) 5 Mg Tablet, 5 MG ORAL BID for 30 Days, TAB Prov:Tian Hagan MD 03/05/17 Acetaminophen* (ACETAMINOPHEN 325MG TABLET*) 325 Mg Tablet, 650 MG ORAL Q4H PRN for 30 Days, TAB Prov:Tian Hagan MD 03/05/17 Reported Medications Gabapentin* (GABAPENTIN*) 300 Mg Capsule, 300 MG ORAL THREE TIMES A DAY, CAP 0 Refills 01/29/18 Amlodipine Besylate* (AMLODIPINE BESYLATE*) 10 Mg Tablet, 10 MG ORAL DAILY, TAB 01/29/18 Risperidone* (RISPERDAL*) 0.25 Mg Tablet, 0.25 MG ORAL DAILY, #30 TAB 0 Refills 07/01/17 Insulin Glargine (LANTUS) 100 Unit/1 Ml Insuln.pen, 0 SUBQ BEDTIME, #1 EA 0 Refills 07/01/17 Aspirin* (ASPIR 81*) 81 Mg Tablet.dr, 81 MG ORAL DAILY, TAB 04/16/17 Pantoprazole* (PANTOPRAZOLE*) 40 Mg Tablet.dr, 40 MG ORAL DAILY, TAB 04/14/17 Lisinopril* (LISINOPRIL*) 10 Mg Tablet, 10 MG ORAL DAILY, TAB 04/14/17 Ibuprofen* (MOTRIN*) 600 Mg Tablet, 600 MG ORAL Q8H PRN for For Pain, #30 TAB 0 Refills 04/14/17 Carvedilol* (CARVEDILOL*) 3.125 Mg Tablet, 3.125 MG ORAL EVERY 12 HOURS, TAB 04/14/17 Atorvastatin Calcium* (ATORVASTATIN CALCIUM*) 40 Mg Tablet, 40 MG ORAL BEDTIME, TAB 04/14/17 No Known Medications* (NKM - No Known Medications*) ., 0 ., 0 Refills 02/10/17 Med list reviewed/reconciled: Yes Allergies: Coded Allergies: PENICILLINS (Verified Allergy, Unknown, 02/10/17) Patient History Limited by: medical condition History Provided By: Medical Record PMH Narrative Past Medical History: see triage record, HTN - deduced from medications in pt. possession on arrival., other - neuropathy:deduced from medications in pt. possession on arrival. Past Surgical History: unable to obtain Pertinent Family History: unable to obtain Social History: Reports: drug use - obtained from hx Reviewed Nursing Documentation: PMH: Agreed; PSxH: Agreed Nursing Documentation-PMH Past Medical History: No History, Except For Hx Cardiac Problems: Yes Hx Hypertension: Yes Hx Diabetes: Yes Hx Cancer: No Hx Gastrointestinal Problems: Yes Hx Neurological Problems: Yes - ICH Hx Cerebrovascular Accident: Yes Hx Speech Problem: Yes Hx Headaches: Yes Social History: Reports: alcohol use Review of Systems All Other Systems: negative except mentioned in HPI Physical Exam Vital Signs Date Time Temp Pulse Resp B/P (MAP) Pulse Ox O2 Delivery O2 Flow Rate FiO2 01/29/18 11:30 72 01/29/18 15:33 98.0 16 163/98 98 Room Air 98.1 Sp02 EP Interpretation: reviewed, normal Labs Laboratory Tests Test 02/01/18 16:00 02/02/18 09:25 White Blood Count 4.7 K/UL (4.8-10.8) L 4.1 K/UL (4.8-10.8) L Red Blood Count 3.20 M/UL (4.70-6.10) L 3.46 M/UL (4.70-6.10) L Hemoglobin 11.2 G/DL (14.2-18.0) L 11.8 G/DL (14.2-18.0) L Hematocrit 32.0 % (42.0-52.0) L 34.7 % (42.0-52.0) L Mean Corpuscular Volume 100 FL (80-99) H 100 FL (80-99) H Mean Corpuscular Hemoglobin 35.1 PG (27.0-31.0) H 34.1 PG (27.0-31.0) H Mean Corpuscular Hemoglobin Concent 35.1 G/DL (32.0-36.0) 34.1 G/DL (32.0-36.0) Red Cell Distribution Width 12.6 % (11.6-14.8) 12.2 % (11.6-14.8) Platelet Count 94 K/UL (150-450) L 93 K/UL (150-450) L Mean Platelet Volume 8.3 FL (6.5-10.1) 7.5 FL (6.5-10.1) Neutrophils (%) (Auto) % (45.0-75.0) % (45.0-75.0) Lymphocytes (%) (Auto) % (20.0-45.0) % (20.0-45.0) Monocytes (%) (Auto) % (1.0-10.0) % (1.0-10.0) Eosinophils (%) (Auto) % (0.0-3.0) % (0.0-3.0) Basophils (%) (Auto) % (0.0-2.0) % (0.0-2.0) Differential Total Cells Counted 100 100 Neutrophils % (Manual) 38 % (45-75) L 33 % (45-75) L Lymphocytes % (Manual) 51 % (20-45) H 55 % (20-45) H Monocytes % (Manual) 7 % (1-10) 8 % (1-10) Eosinophils % (Manual) 3 % (0-3) 4 % (0-3) H Basophils % (Manual) 1 % (0-2) 0 % (0-2) Band Neutrophils 0 % (0-8) 0 % (0-8) Platelet Estimate Decreased L Decreased L Platelet Morphology Normal Normal Hypochromasia 1+ Anisocytosis 1+ Macrocytosis 1+ 1+ Sodium Level 140 MMOL/L (136-145) 140 MMOL/L (136-145) Potassium Level 3.8 MMOL/L (3.5-5.1) 3.9 MMOL/L (3.5-5.1) Chloride Level 106 MMOL/L (98-107) 107 MMOL/L (98-107) Carbon Dioxide Level 26 MMOL/L (21-32) 27 MMOL/L (21-32) Anion Gap 8 mmol/L (5-15) 6 mmol/L (5-15) Blood Urea Nitrogen 27 mg/dL (7-18) H 25 mg/dL (7-18) H Creatinine 1.6 MG/DL (0.55-1.30) H 1.5 MG/DL (0.55-1.30) H Estimat Glomerular Filtration Rate 53.3 mL/min (>60) 57.4 mL/min (>60) Glucose Level 155 MG/DL (74-106) H 129 MG/DL (74-106) H Uric Acid 9.8 MG/DL (2.6-7.2) H Calcium Level 8.5 MG/DL (8.5-10.1) 8.4 MG/DL (8.5-10.1) L Phosphorus Level 2.7 MG/DL (2.5-4.9) Magnesium Level 1.6 MG/DL (1.8-2.4) L Total Bilirubin 0.5 MG/DL (0.2-1.0) 0.5 MG/DL (0.2-1.0) Aspartate Amino Transf (AST/SGOT) 134 U/L (15-37) H 126 U/L (15-37) H Alanine Aminotransferase (ALT/SGPT) 54 U/L (12-78) 57 U/L (12-78) Alkaline Phosphatase 84 U/L (46-116) 92 U/L (46-116) Ammonia 89 umol/L (11-32) H Total Protein 7.9 G/DL (6.4-8.2) 7.9 G/DL (6.4-8.2) Albumin 2.2 G/DL (3.4-5.0) L 2.2 G/DL (3.4-5.0) L Globulin 5.7 g/dL 5.7 g/dL Albumin/Globulin Ratio 0.4 (1.0-2.7) L 0.4 (1.0-2.7) L General Appearance: well appearing, no apparent distress, alert Head: normocephalic EENT: PERRL/EOMI, normal ENT inspection Neck: supple Respiratory: normal breath sounds, no respiratory distress Cardiovascular: normal rate Gastrointestinal: normal inspection, non tender, soft, normal bowel sounds, non -distended Rectal: deferred Genitourinary: deferred Musculoskeletal: normal inspection, back normal Neurologic: normal inspection, alert, oriented x3, responsive Psychiatric: normal inspection, judgement/insight normal, memory normal Skin: normal inspection, normal color, no rash, warm/dry, palpation normal, well hydrated Lymphatic: normal inspection, no adenopathy Current Medications Current Medications Medications (Trade) Dose Ordered Sig/Sharla Route PRN Reason Start Time Stop Time Status Last Admin Dose Admin Amlodipine Besylate (Norvasc) 5 mg DAILY ORAL 01/31/18 09:00 03/02/18 08:59 02/02/18 09:06 Aspirin (ASA) 81 mg DAILY ORAL 01/31/18 09:00 03/02/18 08:59 02/02/18 09:06 Atorvastatin Calcium (Lipitor) 10 mg BEDTIME ORAL 01/30/18 21:00 03/01/18 20:59 02/01/18 21:01 Carvedilol (Coreg) 3.125 mg EVERY 12 HOURS ORAL 01/30/18 09:00 03/01/18 08:59 02/02/18 09:07 Chlorhexidine Gluconate (Chastity-Hex 2%) 1 applic DAILY@2000 TOPIC 02/01/18 20:00 03/03/18 19:59 Dextrose/Sodium Chloride 1,000 ml @ 100 mls/hr Q10H IV 01/30/18 16:00 03/01/18 15:59 02/02/18 14:37 Docusate Sodium (Colace) 100 mg TID ORAL 01/30/18 18:00 03/01/18 17:59 02/02/18 14:37 Gabapentin (Neurontin) 300 mg THREE TIMES A DAY ORAL 01/30/18 09:00 03/01/18 08:59 02/02/18 14:37 Heparin Sodium (Porcine) (Heparin 5000 units/ml) 5,000 units EVERY 12 HOURS SUBQ 01/30/18 09:00 03/01/18 08:59 01/30/18 21:03 Heparin Sodium/ Sodium Chloride (Heparin 2000 units/Ns 1000ml premix) 2,000 unit ONCE PRN INJ PICC placement 02/01/18 19:45 02/02/18 23:59 Lidocaine HCl (Xylocaine 1% 30ml) 30 ml ONCE PRN INJ PICC placement 02/01/18 19:45 02/02/18 23:59 Morphine Sulfate (Morphine Sulfate) 2 mg Q4H PRN IM For Pain 01/29/18 21:35 02/05/18 21:34 01/30/18 03:52 Nitroglycerin (Ntg) 1 patch Q24H TDERMAL 01/30/18 16:00 03/01/18 15:59 02/01/18 16:14 Pantoprazole (Protonix) 40 mg BIAC ORAL 01/30/18 16:30 03/01/18 16:29 02/02/18 06:19 Risperidone (RisperDAL) 1 mg BEDTIME ORAL 02/01/18 21:00 03/03/18 20:59 02/01/18 21:01 Tamsulosin HCl (Flomax) 0.4 mg BID ORAL 01/30/18 18:00 03/01/18 17:59 02/02/18 09:06 GI: Plan Problems: (1) Hepatic encephalopathy (2) Anemia (3) Liver cirrhosis (4) Hepatitis C (5) Drug abuse (6) Hyperammonemia Plan macrocytic hyperchromic anemia >> B12/folate levels normal abdominal U/S reviewed >> Suspected chronic liver disease/cirrhosis. OB stool negative Hepatitis C >> will require outpatient work up and treatment elevated AST >> patient on Lipitor, current use ?ETOH elevated ammonia levels >> on lactulose, will add xifaxan ppi fu labs, thiamine outpatient GI procedures to evaluate for varices, will need cardiac clearance Discussed with Dr. Flowers. Thank you for this patient referral, we will follow. LINUS FLOWERS 02/05/18 0736: History of Present Illness General Reason for Hospitalization: General Complaint Present Illness Home Meds Active Scripts Gabapentin* (NEURONTIN*) 100 Mg Capsule, 100 MG ORAL THREE TIMES A DAY, #30 CAP 0 Refills Prov:JOSE CRUZ PARKER M.D. 07/01/17 Lactulose (LACTULOSE*) 20 Gm/30 Ml Solution, 30 GM ORAL DAILY for 30 Days, #30 TBS Prov:Tian Hagan MD 04/16/17 Clonidine HCl (Clonidine HCl) 0.1 Mg Tablet, 0.1 MG ORAL Q4H PRN for 30 Days, TAB Prov:Tian Hagan MD 04/16/17 Lisinopril* (LISINOPRIL*) 10 Mg Tablet, 20 MG ORAL DAILY for 30 Days, TAB Prov:Tian Hagan MD 04/16/17 [flagy iv] No Conflict Check, 500 AMP IVPB EVERY 8 HOURS for 18 Days Prov:Tian Hagan MD 03/05/17 Cefepime Hcl/D5w (CEFEPIME-DEXTROSE 2 GM/50 ML) 2 Gm/50 Ml Piggyback, 2 GM IVPB EVERY 12 HOURS for 18 Days, BAG Prov:Tian Hagan MD 03/05/17 Hydrocodone Bit/Acetaminophen 10-325* (HYDROCODON-ACETAMINOPHN 10-325*) 1 Each Tablet, 1 EA ORAL Q4H PRN for 30 Days, TAB Prov:Tian Hagan MD 03/05/17 Heparin Sod (Porcine) (HEPARIN SODIUM*) 5 000/1 Ml Vial, 5000 UNITS SUBQ EVERY 12 HOURS for 30 Days, VIAL Prov:Tian Hagan MD 03/05/17 Ascorbic Acid* (ASCORBIC ACID*) 500 Mg Tablet, 500 MG ORAL DAILY for 30 Days, TAB Prov:Tian Hagan MD 03/05/17 Amlodipine Besylate (Norvasc) 5 Mg Tablet, 5 MG ORAL BID for 30 Days, TAB Prov:Tian Hagan MD 03/05/17 Acetaminophen* (ACETAMINOPHEN 325MG TABLET*) 325 Mg Tablet, 650 MG ORAL Q4H PRN for 30 Days, TAB Prov:Tian Hagan MD 03/05/17 Reported Medications Gabapentin* (GABAPENTIN*) 300 Mg Capsule, 300 MG ORAL THREE TIMES A DAY, CAP 0 Refills 01/29/18 Amlodipine Besylate* (AMLODIPINE BESYLATE*) 10 Mg Tablet, 10 MG ORAL DAILY, TAB 01/29/18 Risperidone* (RISPERDAL*) 0.25 Mg Tablet, 0.25 MG ORAL DAILY, #30 TAB 0 Refills 07/01/17 Insulin Glargine (LANTUS) 100 Unit/1 Ml Insuln.pen, 0 SUBQ BEDTIME, #1 EA 0 Refills 07/01/17 Aspirin* (ASPIR 81*) 81 Mg Tablet.dr, 81 MG ORAL DAILY, TAB 04/16/17 Pantoprazole* (PANTOPRAZOLE*) 40 Mg Tablet.dr, 40 MG ORAL DAILY, TAB 04/14/17 Lisinopril* (LISINOPRIL*) 10 Mg Tablet, 10 MG ORAL DAILY, TAB 04/14/17 Ibuprofen* (MOTRIN*) 600 Mg Tablet, 600 MG ORAL Q8H PRN for For Pain, #30 TAB 0 Refills 04/14/17 Carvedilol* (CARVEDILOL*) 3.125 Mg Tablet, 3.125 MG ORAL EVERY 12 HOURS, TAB 04/14/17 Atorvastatin Calcium* (ATORVASTATIN CALCIUM*) 40 Mg Tablet, 40 MG ORAL BEDTIME, TAB 04/14/17 No Known Medications* (NKM - No Known Medications*) ., 0 ., 0 Refills 02/10/17 Allergies: Coded Allergies: PENICILLINS (Verified Allergy, Unknown, 02/10/17) GI: Plan Plan The patient was seen and examined at bedside and all new and available data was reviewed in the patients chart. I agree with the above findings, impression and plan. (Patient seen earlier today. Signature stamp does not reflect patient encounter time.). - MD Magi [facility] Felix N.PClarita February 02, 2018 16:15 LINUS FLOWERS February 05, 2018 07:36
[2018-02-02] MEDS: Nitroglycerin Patch 0.2mg/hr TDERMAL SCH (16:47)
[2018-02-02] MEDS: Lactulose 20gm/30ml UDC ORAL SCH (18:08)
--- NOTE | 2018-02-02 18:53 | Neurology Progress Note ---
Interim History Interim History Interim History Mr. Grewal feels better. The mind is clearer. He has not noticed any new neurologic symptoms. He denies any weakness on one side or the other, numbness on one side or the other, problems with speech, problems with language, or other neurologic symptoms. He did some walking today. He feels steadier on his feet. Review of Systems Neuro Review of Systems Benign. Objective Physical Exam Last Vital Signs Date Time Temp Pulse Resp B/P (MAP) Pulse Ox O2 Delivery O2 Flow Rate FiO2 02/02/18 16:47 158/88 02/02/18 16:11 80 02/02/18 16:00 97.9 19 100 97.9 02/02/18 12:00 Room Air Laboratory Tests Test 02/02/18 09:25 White Blood Count 4.1 K/UL (4.8-10.8) L Red Blood Count 3.46 M/UL (4.70-6.10) L Hemoglobin 11.8 G/DL (14.2-18.0) L Hematocrit 34.7 % (42.0-52.0) L Mean Corpuscular Volume 100 FL (80-99) H Mean Corpuscular Hemoglobin 34.1 PG (27.0-31.0) H Mean Corpuscular Hemoglobin Concent 34.1 G/DL (32.0-36.0) Red Cell Distribution Width 12.2 % (11.6-14.8) Platelet Count 93 K/UL (150-450) L Mean Platelet Volume 7.5 FL (6.5-10.1) Neutrophils (%) (Auto) % (45.0-75.0) Lymphocytes (%) (Auto) % (20.0-45.0) Monocytes (%) (Auto) % (1.0-10.0) Eosinophils (%) (Auto) % (0.0-3.0) Basophils (%) (Auto) % (0.0-2.0) Differential Total Cells Counted 100 Neutrophils % (Manual) 33 % (45-75) L Lymphocytes % (Manual) 55 % (20-45) H Monocytes % (Manual) 8 % (1-10) Eosinophils % (Manual) 4 % (0-3) H Basophils % (Manual) 0 % (0-2) Band Neutrophils 0 % (0-8) Platelet Estimate Decreased L Platelet Morphology Normal Macrocytosis 1+ Sodium Level 140 MMOL/L (136-145) Potassium Level 3.9 MMOL/L (3.5-5.1) Chloride Level 107 MMOL/L (98-107) Carbon Dioxide Level 27 MMOL/L (21-32) Anion Gap 6 mmol/L (5-15) Blood Urea Nitrogen 25 mg/dL (7-18) H Creatinine 1.5 MG/DL (0.55-1.30) H Estimat Glomerular Filtration Rate 57.4 mL/min (>60) Glucose Level 129 MG/DL (74-106) H Calcium Level 8.4 MG/DL (8.5-10.1) L Total Bilirubin 0.5 MG/DL (0.2-1.0) Aspartate Amino Transf (AST/SGOT) 126 U/L (15-37) H Alanine Aminotransferase (ALT/SGPT) 57 U/L (12-78) Alkaline Phosphatase 92 U/L (46-116) Total Protein 7.9 G/DL (6.4-8.2) Albumin 2.2 G/DL (3.4-5.0) L Globulin 5.7 g/dL Albumin/Globulin Ratio 0.4 (1.0-2.7) L Neurologic Exam Objective PHYSICAL EXAMINATION: GENERAL: He is a well-developed, well-nourished, pleasant black gentleman, lying bed, in no acute distress. HEAD: Normocephalic and atraumatic. NECK: No neck rigidity was observed. EENT: Examination benign. NEUROLOGIC EXAMINATION: MENTAL STATUS EXAMINATION: He was awake and alert. He was oriented to self, [facility], and date. He was able to recall 3/3 words immediately, but could only remember 2/3 words in 1 minute and 3 minutes. He was able to remember presidents, Trump and Obama, but could not remember presidents prior to that. His mathematical skills were impaired. His visuospatial function was also impaired. SPEECH: He had a mild dysarthria, but it should be noted that he was edentulous. LANGUAGE: He had anomia for low and mid frequency words. CRANIAL NERVE EXAMINATION: II: The visual hayes were intact to confrontation testing. III, IV & : The external ocular movements were full and the pupils 3 mm in diameter, equal, round, regular, and reactive to light. V: He had normal facial sensations, and the temporales, masseters, and pterygoids functioned normally. VII: He had left seventh central facial paresis. VIII: He was able to hear well bilaterally and had no nystagmus. IX: The palate moved symmetrically on phonation. X: He had no hoarseness of voice. XI: The sternocleidomastoids and trapezii functioned normally. XII: The tongue was in the midline without any fasciculations or atrophy. MOTOR SYSTEM: The tone was minimally increased in both lower extremities with a mild degree of spasticity. Examination of muscle mass revealed generalized muscle wasting. Examination of power revealed G 5/5 power except for G 5-/5 power in the right iliopsoas, G 4/5 power in the left iliopsoas, G 4++/5 power in the ankle dorsiflexors and toe extensors bilaterally. SENSORY EXAMINATION: He had intact sensations to pinprick and light touch, but complained of a subjective alteration over his entire left body. REFLEXES: 1+ on the right and 1++ on the left at the biceps, triceps, brachioradialis, and knees, 0 at both ankles. The plantar responses were flexor bilaterally. STANCE: He stood up with support on the right side. GAIT: He walked with support on the right side with a left greater than right paraparetic gait. ABNORMAL MOVEMENTS: Asterixis: G 0/4 in both UEs. Impression/Recommendations Diagnostic Impression 1. Mr. Cy Grewal is a 62-year-old, right-handed, black gentleman, with a past history of hypertension, diabetes mellitus, dyslipidemia, hepatitis, strokes, headaches, and a psychiatric illness, who was brought in for inappropriate behavior, and has since been admitted for renal failure, an encephalopathy and a non-ST elevation myocardial infarction. 2. He feels better today. The mind is clearer. There have been no behavioral problems. He has not noticed any new neurologic symptoms. 3. On neurological examination, at this time, he is brighter. He is fully orientated. He does have problems with recent and remote memory, visuospatial function, higher cognitive function, and language. He also has a mild dysarthria , a left seventh central facial paresis, left greater than right paraparesis, with globally diminished reflexes that are slightly brisker on the left than on the right, decreased sensations over his left body, a left greater than right paraparetic gait, and bilateral upper extremity asterixis. 4. The CT scan of the brain without contrast reveals atrophy and deep white matter disease, consistent with underlying deep white matter cerebrovascular disease. 5. Laboratory data on my initial evaluation revealed that he was anemic with a hemoglobin of 11.0. His chemistry panel revealed that his BUN was elevated to 52 with a creatinine of 2.9. In addition, he also had a hyperammonemia with an ammonia of 74, his total bilirubin was elevated to 1.2 and his AST was elevated at 192. His free T4 was elevated at 1.56. His urinalysis was relatively benign. His toxicology screen is negative. 6. Further laboratory tests have revealed that his ammonia has elevated to 155, and his ESR is elevated at 105. 7. The MRI of the brain done on 02/01/18 revealed an acute infarct in the right insula, old lacunar infarcts in the left basal ganglia, midbrain and john. Foci of microhemorrhages in the midbrain and left frontal region with encephalomalacia. 8. The patient's history, neurological examination, CT scan and MRI scan findings, and laboratory data are most compatible with a multifactorial encephalopathy, most probably related to his underlying structural brain disease with super-added elevation in his BUN and creatinine and hyperammonemia. 9. The left greater than right paresis, is related to a combination of old and new cerebrovascular disease. Recommendations 1. Continue present management. 2. Continue aspirin 81 mg daily for now. 3. The patient's blood pressure, blood sugar, and lipids should be controlled. 4. The patient was told to stop smoking immediately again. 5. Physical, occupational, and speech and language therapy. Aric Martinez M.D., M.S.P.H. ARIC MARTINEZ February 02, 2018 18:53
[2018-02-02 20:00] VITALS: BP 149/68
[2018-02-02] MEDS: Dyna-Hex 2% Top Sol 2oz TOPIC SCH (20:24)
--- NOTE | 2018-02-02 22:28 | General Progress Note ---
Assessment/Plan Status: stable, progressing Subjective Date patient seen: February 02, 2018 Neurologic/Psychiatric: Reports: anxiety, depressed, emotional problems Allergies: Coded Allergies: PENICILLINS (Verified Allergy, Unknown, 02/10/17) Subjective the pt is improved. less anxious Objective Last 24 Hour Vital Signs Date Time Temp Pulse Resp B/P (MAP) Pulse Ox O2 Delivery O2 Flow Rate FiO2 02/02/18 20:30 92 149/68 02/02/18 20:00 66 02/02/18 20:00 97.8 92 19 149/68 98 97.8 02/02/18 16:47 158/88 02/02/18 16:11 80 02/02/18 16:00 97.9 64 19 158/88 100 97.9 02/02/18 12:00 97.6 62 19 138/72 99 Room Air 97.6 02/02/18 11:31 55 02/02/18 09:07 60 150/87 02/02/18 09:06 60 150/87 02/02/18 08:00 97.7 60 18 150/87 97 Room Air 97.7 02/02/18 07:46 58 02/02/18 04:00 96.7 59 19 121/62 96 96.7 02/02/18 04:00 55 02/02/18 00:00 63 02/02/18 00:00 98.1 61 19 132/69 97 98.1 Intake and Output 02/01/18 02/02/18 19:00 07:00 Intake Total 260 ml 800 ml Balance 260 ml 800 ml Intake Oral 260 ml Other 800 ml # Voids 5 # Bowel Movements 2 Laboratory Tests 02/02/18 09:25: White Blood Count 4.1L, Red Blood Count 3.46L, Hemoglobin 11.8L, Hematocrit 34.7L, Mean Corpuscular Volume 100H, Mean Corpuscular Hemoglobin 34.1H, Mean Corpuscular Hemoglobin Concent 34.1, Red Cell Distribution Width 12.2, Platelet Count 93L, Mean Platelet Volume 7.5, Neutrophils (%) (Auto) , Lymphocytes (%) ( Auto) , Monocytes (%) (Auto) , Eosinophils (%) (Auto) , Basophils (%) (Auto) , Differential Total Cells Counted 100, Neutrophils % (Manual) 33L, Lymphocytes % (Manual) 55H, Monocytes % (Manual) 8, Eosinophils % (Manual) 4H, Basophils % ( Manual) 0, Band Neutrophils 0, Platelet Estimate DecreasedL, Platelet Morphology Normal, Macrocytosis 1+, Sodium Level 140, Potassium Level 3.9, Chloride Level 107, Carbon Dioxide Level 27, Anion Gap 6, Blood Urea Nitrogen 25H, Creatinine 1.5H, Estimat Glomerular Filtration Rate 57.4, Glucose Level 129H, Calcium Level 8.4L, Total Bilirubin 0.5, Aspartate Amino Transf (AST/SGOT ) 126H, Alanine Aminotransferase (ALT/SGPT) 57, Alkaline Phosphatase 92, Total Protein 7.9, Albumin 2.2L, Globulin 5.7, Albumin/Globulin Ratio 0.4L Height (Feet): 6 Height (Inches): 3.00 Weight (Pounds): 191 General Appearance: no apparent distress, alert Neurologic: oriented x 3, responsive, depressed affect Vasile Ramirez M.D. February 02, 2018 22:28
[2018-02-03] VITALS (7 sets, daily range): BP systolic 133–176; BP diastolic 76–103
[2018-02-03] MEDS: D5 1/2NS 1,000 ML IV SCH ×3 (00:11→19:19)
[2018-02-03 06:38] LABS: HEMOGLOBIN 10.5 G/DL (14.2-18.0); MEAN CORPUSCULAR VOLUME 98 FL (80-99); PLATELET COUNT 85 K/UL (150-450); RED BLOOD COUNT 3.05 M/UL (4.70-6.10); RED CELL DISTRIBUTION WIDTH 12.3 % (11.6-14.8); WHITE BLOOD COUNT 4.3 K/UL (4.8-10.8)
[2018-02-03 06:58] LABS: AMMONIA 151 umol/L (11-32)
[2018-02-03 07:00] LABS: PHOSPHORUS 2.7 MG/DL (2.5-4.9)
[2018-02-03 07:02] LABS: ALANINE AMINOTRANSFERASE 54 U/L (12-78); ALBUMIN/GLOBULIN RATIO 0.4 (1.0-2.7); ALKALINE PHOSPHATASE 92 U/L (46-116); ANION GAP 7 mmol/L (5-15); ASPARTATE AMINO TRANSFERASE 108 U/L (15-37); BILIRUBIN,TOTAL 0.4 MG/DL (0.2-1.0); BLOOD UREA NITROGEN 21 mg/dL (7-18); CALCIUM 7.9 MG/DL (8.5-10.1); CARBON DIOXIDE 26 MMOL/L (21-32); CHLORIDE 109 MMOL/L (98-107); CREATININE 1.5 MG/DL (0.55-1.30); POTASSIUM 3.6 MMOL/L (3.5-5.1); SODIUM 142 MMOL/L (136-145)
[2018-02-03] MEDS: Aspirin Baby 81mg ORAL SCH (08:33)
[2018-02-03] MEDS: Tamsulosin 0.4mg cap ORAL SCH ×2 (08:33→17:16)
[2018-02-03] MEDS: Lactulose 20gm/30ml UDC ORAL SCH ×3 (08:33→17:45)
[2018-02-03] MEDS: Heparin 5000 units/ml inj SUBQ SCH (08:35)
[2018-02-03] MEDS ORDERED: Lactulose 20gm/30ml UDC ORAL SCH (09:00)
--- NOTE | 2018-02-03 11:39 | GI Progress Note ---
Assessment/Plan Problems: (1) Hepatitis C ICD Codes: B19.20 - Unspecified viral hepatitis C without hepatic coma SNOMED: 32813914 (2) Liver cirrhosis ICD Codes: K74.60 - Unspecified cirrhosis of liver SNOMED: 76487019 (3) Hepatic encephalopathy ICD Codes: K72.90 - Hepatic failure, unspecified without coma SNOMED: 22512256 (4) Drug abuse ICD Codes: F19.10 - Other psychoactive substance abuse, uncomplicated SNOMED: 56529711 (5) Anemia ICD Codes: D64.9 - Anemia, unspecified SNOMED: 220683412 (6) Hyperammonemia ICD Codes: E72.20 - Disorder of urea cycle metabolism, unspecified SNOMED: 7044094 (7) Homelessness ICD Codes: Z59.0 - Homelessness SNOMED: 49303504 Status: unchanged Status Narrative Discussed with Dr. Bourne. Assessment/Plan macrocytic hyperchromic anemia >> B12/folate levels normal abdominal U/S reviewed >> Suspected chronic liver disease/cirrhosis. OB stool negative Hepatitis C >> will require outpatient work up and treatment elevated AST >> patient on Lipitor, current use ?ETOH elevated ammonia levels >> lactulose + xifaxan ppi fu labs, thiamine outpatient GI procedures to evaluate for varices, will need cardiac clearance Subjective Subjective limited, denies any pain Objective Last 24 Hour Vital Signs Date Time Temp Pulse Resp B/P (MAP) Pulse Ox O2 Delivery O2 Flow Rate FiO2 02/03/18 08:35 64 139/88 02/03/18 08:34 64 139/88 02/03/18 08:00 97.8 64 21 139/88 99 Room Air 97.8 02/03/18 07:55 69 02/03/18 04:00 61 02/03/18 04:00 97.5 64 20 133/76 97 97.5 02/03/18 00:00 97.2 64 18 152/86 97 97.2 02/03/18 00:00 63 02/02/18 20:30 92 149/68 02/02/18 20:00 66 02/02/18 20:00 97.8 92 19 149/68 98 97.8 02/02/18 16:47 158/88 02/02/18 16:11 80 02/02/18 16:00 97.9 64 19 158/88 100 97.9 02/02/18 12:00 97.6 62 19 138/72 99 Room Air 97.6 Intake and Output 02/02/18 02/03/18 19:00 07:00 Intake Total 1100 ml 1000 ml Output Total 1800 ml Balance -700 ml 1000 ml Intake Oral 1100 ml IV Total 1000 ml Output Urine Total 1800 ml # Voids 2 Laboratory Tests Test 02/03/18 06:00 White Blood Count 4.3 K/UL (4.8-10.8) L Red Blood Count 3.05 M/UL (4.70-6.10) L Hemoglobin 10.5 G/DL (14.2-18.0) L Hematocrit 30.0 % (42.0-52.0) L Mean Corpuscular Volume 98 FL (80-99) Mean Corpuscular Hemoglobin 34.5 PG (27.0-31.0) H Mean Corpuscular Hemoglobin Concent 35.1 G/DL (32.0-36.0) Red Cell Distribution Width 12.3 % (11.6-14.8) Platelet Count 85 K/UL (150-450) L Mean Platelet Volume 9.1 FL (6.5-10.1) Neutrophils (%) (Auto) % (45.0-75.0) Lymphocytes (%) (Auto) % (20.0-45.0) Monocytes (%) (Auto) % (1.0-10.0) Eosinophils (%) (Auto) % (0.0-3.0) Basophils (%) (Auto) % (0.0-2.0) Differential Total Cells Counted 100 Neutrophils % (Manual) 35 % (45-75) L Lymphocytes % (Manual) 60 % (20-45) H Monocytes % (Manual) 4 % (1-10) Eosinophils % (Manual) 1 % (0-3) Basophils % (Manual) 0 % (0-2) Band Neutrophils 0 % (0-8) Platelet Estimate Decreased L Platelet Morphology Normal Sodium Level 142 MMOL/L (136-145) Potassium Level 3.6 MMOL/L (3.5-5.1) Chloride Level 109 MMOL/L (98-107) H Carbon Dioxide Level 26 MMOL/L (21-32) Anion Gap 7 mmol/L (5-15) Blood Urea Nitrogen 21 mg/dL (7-18) H Creatinine 1.5 MG/DL (0.55-1.30) H Estimat Glomerular Filtration Rate 57.4 mL/min (>60) Glucose Level 131 MG/DL (74-106) H Calcium Level 7.9 MG/DL (8.5-10.1) L Phosphorus Level 2.7 MG/DL (2.5-4.9) Magnesium Level 1.5 MG/DL (1.8-2.4) L Total Bilirubin 0.4 MG/DL (0.2-1.0) Aspartate Amino Transf (AST/SGOT) 108 U/L (15-37) H Alanine Aminotransferase (ALT/SGPT) 54 U/L (12-78) Alkaline Phosphatase 92 U/L (46-116) Ammonia 151 umol/L (11-32) H Total Protein 7.2 G/DL (6.4-8.2) Albumin 2.0 G/DL (3.4-5.0) L Globulin 5.2 g/dL Albumin/Globulin Ratio 0.4 (1.0-2.7) L Vitamin B1 Level Pending Height (Feet): 6 Height (Inches): 3.00 Weight (Pounds): 191 General Appearance: WD/WN, no apparent distress, alert Cardiovascular: normal rate Respiratory/Chest: normal breath sounds, no respiratory distress Abdominal Exam: normal bowel sounds, non tender, soft Extremities: normal range of motion, non-tender Raquel Sow N.P. February 03, 2018 11:39
--- NOTE | 2018-02-03 12:19 | Cardiac Electrophysiology PN ---
Assessment/Plan Assessment/Plan 1. Non-ST elevation myocardial infarction type 2 by elevated troponin and inferolateral EKG changes. No chest pain or SOB. Continue aspirin, Lipitor, and Coreg. Troponin levels are flat and likely due to renal failure as Cr was 3.5 Echocardiogram showed Ef 60%. Can't follow protocol for stress test. 2. Hypertension. Continue Norvasc and Coreg. Avoid GUANAKITO inhibitors in view of renal failure. 3. Acute renal failure. Creatinine 3.5. Today Cr 1.5 4. Hyperlipidemia, on Lipitor. 5. Altered mental status. Follow up neuro and psych.The head CT was negative. Likely due to high ammonia level. MRI brain done 6. Diabetes. 7. Hyperammonemia. Better on lactulose. DW RN OK to DC Tele Subjective Subjective Alert in NAD. RN at bedside.Refused video swallow eval. Objective Last 24 Hour Vital Signs Date Time Temp Pulse Resp B/P (MAP) Pulse Ox O2 Delivery O2 Flow Rate FiO2 02/03/18 12:00 97.7 60 18 148/87 100 Room Air 97.7 02/03/18 08:35 64 139/88 02/03/18 08:34 64 139/88 02/03/18 08:00 97.8 64 21 139/88 99 Room Air 97.8 02/03/18 07:55 69 02/03/18 04:00 61 02/03/18 04:00 97.5 64 20 133/76 97 97.5 02/03/18 00:00 97.2 64 18 152/86 97 97.2 02/03/18 00:00 63 02/02/18 20:30 92 149/68 02/02/18 20:00 66 02/02/18 20:00 97.8 92 19 149/68 98 97.8 02/02/18 16:47 158/88 02/02/18 16:11 80 02/02/18 16:00 97.9 64 19 158/88 100 97.9 Intake and Output 02/02/18 02/03/18 19:00 07:00 Intake Total 1100 ml 1000 ml Output Total 1800 ml Balance -700 ml 1000 ml Intake Oral 1100 ml IV Total 1000 ml Output Urine Total 1800 ml # Voids 2 Laboratory Tests Test 02/03/18 06:00 White Blood Count 4.3 K/UL (4.8-10.8) L Red Blood Count 3.05 M/UL (4.70-6.10) L Hemoglobin 10.5 G/DL (14.2-18.0) L Hematocrit 30.0 % (42.0-52.0) L Mean Corpuscular Volume 98 FL (80-99) Mean Corpuscular Hemoglobin 34.5 PG (27.0-31.0) H Mean Corpuscular Hemoglobin Concent 35.1 G/DL (32.0-36.0) Red Cell Distribution Width 12.3 % (11.6-14.8) Platelet Count 85 K/UL (150-450) L Mean Platelet Volume 9.1 FL (6.5-10.1) Neutrophils (%) (Auto) % (45.0-75.0) Lymphocytes (%) (Auto) % (20.0-45.0) Monocytes (%) (Auto) % (1.0-10.0) Eosinophils (%) (Auto) % (0.0-3.0) Basophils (%) (Auto) % (0.0-2.0) Differential Total Cells Counted 100 Neutrophils % (Manual) 35 % (45-75) L Lymphocytes % (Manual) 60 % (20-45) H Monocytes % (Manual) 4 % (1-10) Eosinophils % (Manual) 1 % (0-3) Basophils % (Manual) 0 % (0-2) Band Neutrophils 0 % (0-8) Platelet Estimate Decreased L Platelet Morphology Normal Sodium Level 142 MMOL/L (136-145) Potassium Level 3.6 MMOL/L (3.5-5.1) Chloride Level 109 MMOL/L (98-107) H Carbon Dioxide Level 26 MMOL/L (21-32) Anion Gap 7 mmol/L (5-15) Blood Urea Nitrogen 21 mg/dL (7-18) H Creatinine 1.5 MG/DL (0.55-1.30) H Estimat Glomerular Filtration Rate 57.4 mL/min (>60) Glucose Level 131 MG/DL (74-106) H Calcium Level 7.9 MG/DL (8.5-10.1) L Phosphorus Level 2.7 MG/DL (2.5-4.9) Magnesium Level 1.5 MG/DL (1.8-2.4) L Total Bilirubin 0.4 MG/DL (0.2-1.0) Aspartate Amino Transf (AST/SGOT) 108 U/L (15-37) H Alanine Aminotransferase (ALT/SGPT) 54 U/L (12-78) Alkaline Phosphatase 92 U/L (46-116) Ammonia 151 umol/L (11-32) H Total Protein 7.2 G/DL (6.4-8.2) Albumin 2.0 G/DL (3.4-5.0) L Globulin 5.2 g/dL Albumin/Globulin Ratio 0.4 (1.0-2.7) L Vitamin B1 Level Pending Objective HEAD AND NECK: No JVD. LUNGS: Coarse rhonchi. CARDIOVASCULAR: Regular S1 and S2 with no gallop. ABDOMEN: Soft. EXTREMITIES: 1+ pitting edema. Grover Montenegro MD February 03, 2018 12:19
--- NOTE | 2018-02-03 12:21 | General Progress Note ---
Assessment/Plan Status: stable, progressing Assessment/Plan encephalopathy improving Subjective Date patient seen: February 03, 2018 Neurologic/Psychiatric: Reports: anxiety, emotional problems Allergies: Coded Allergies: PENICILLINS (Verified Allergy, Unknown, 02/10/17) Subjective the pt is improved. less anxious Objective Last 24 Hour Vital Signs Date Time Temp Pulse Resp B/P (MAP) Pulse Ox O2 Delivery O2 Flow Rate FiO2 02/03/18 12:00 97.7 60 18 148/87 100 Room Air 97.7 02/03/18 08:35 64 139/88 02/03/18 08:34 64 139/88 02/03/18 08:00 97.8 64 21 139/88 99 Room Air 97.8 02/03/18 07:55 69 02/03/18 04:00 61 02/03/18 04:00 97.5 64 20 133/76 97 97.5 02/03/18 00:00 97.2 64 18 152/86 97 97.2 02/03/18 00:00 63 02/02/18 20:30 92 149/68 02/02/18 20:00 66 02/02/18 20:00 97.8 92 19 149/68 98 97.8 02/02/18 16:47 158/88 02/02/18 16:11 80 02/02/18 16:00 97.9 64 19 158/88 100 97.9 Intake and Output 02/02/18 02/03/18 19:00 07:00 Intake Total 1100 ml 1000 ml Output Total 1800 ml Balance -700 ml 1000 ml Intake Oral 1100 ml IV Total 1000 ml Output Urine Total 1800 ml # Voids 2 Laboratory Tests 02/03/18 06:00: White Blood Count 4.3L, Red Blood Count 3.05L, Hemoglobin 10.5L, Hematocrit 30.0L, Mean Corpuscular Volume 98, Mean Corpuscular Hemoglobin 34.5H, Mean Corpuscular Hemoglobin Concent 35.1, Red Cell Distribution Width 12.3, Platelet Count 85L, Mean Platelet Volume 9.1, Neutrophils (%) (Auto) , Lymphocytes (%) ( Auto) , Monocytes (%) (Auto) , Eosinophils (%) (Auto) , Basophils (%) (Auto) , Differential Total Cells Counted 100, Neutrophils % (Manual) 35L, Lymphocytes % (Manual) 60H, Monocytes % (Manual) 4, Eosinophils % (Manual) 1, Basophils % ( Manual) 0, Band Neutrophils 0, Platelet Estimate DecreasedL, Platelet Morphology Normal, Sodium Level 142, Potassium Level 3.6, Chloride Level 109H, Carbon Dioxide Level 26, Anion Gap 7, Blood Urea Nitrogen 21H, Creatinine 1.5H, Estimat Glomerular Filtration Rate 57.4, Glucose Level 131H, Calcium Level 7.9L , Phosphorus Level 2.7, Magnesium Level 1.5L, Total Bilirubin 0.4, Aspartate Amino Transf (AST/SGOT) 108H, Alanine Aminotransferase (ALT/SGPT) 54, Alkaline Phosphatase 92, Ammonia 151H, Total Protein 7.2, Albumin 2.0L, Globulin 5.2, Albumin/Globulin Ratio 0.4L, Vitamin B1 Level [Pending] Height (Feet): 6 Height (Inches): 3.00 Weight (Pounds): 191 General Appearance: no apparent distress, alert Neurologic: depressed affect Vasile Ramirez M.D. February 03, 2018 12:21
--- NOTE | 2018-02-03 16:01 | General Progress Note ---
Assessment/Plan Status: stable Assessment/Plan 1. Acute Right insular ischemic CVA 2.Acute Anemia. 3. Liver cirrhosis. 4. Abnormal Troponin 4. Acute on chronic renal failure. 5. Hyperlipidemia. 6. Hepatitis C 6. Gastrointestinal and deep vein thrombosis prophylaxes. Plan: current management SW for placement Medically stable for outpatient followup Subjective ROS Limited/Unobtainable: No Constitutional: Reports: no symptoms HEENT: Reports: no symptoms Cardiovascular: Reports: no symptoms Allergies: Coded Allergies: PENICILLINS (Verified Allergy, Unknown, 02/10/17) Objective Last 24 Hour Vital Signs Date Time Temp Pulse Resp B/P (MAP) Pulse Ox O2 Delivery O2 Flow Rate FiO2 02/03/18 12:00 97.7 60 18 148/87 100 Room Air 97.7 02/03/18 08:35 64 139/88 02/03/18 08:34 64 139/88 02/03/18 08:00 97.8 64 21 139/88 99 Room Air 97.8 02/03/18 07:55 69 02/03/18 04:00 61 02/03/18 04:00 97.5 64 20 133/76 97 97.5 02/03/18 00:00 97.2 64 18 152/86 97 97.2 02/03/18 00:00 63 02/02/18 20:30 92 149/68 02/02/18 20:00 66 02/02/18 20:00 97.8 92 19 149/68 98 97.8 02/02/18 16:47 158/88 02/02/18 16:11 80 02/02/18 16:00 97.9 64 19 158/88 100 97.9 Intake and Output 02/02/18 02/03/18 19:00 07:00 Intake Total 1100 ml 1000 ml Output Total 1800 ml Balance -700 ml 1000 ml Intake Oral 1100 ml IV Total 1000 ml Output Urine Total 1800 ml # Voids 2 Laboratory Tests 02/03/18 06:00: White Blood Count 4.3L, Red Blood Count 3.05L, Hemoglobin 10.5L, Hematocrit 30.0L, Mean Corpuscular Volume 98, Mean Corpuscular Hemoglobin 34.5H, Mean Corpuscular Hemoglobin Concent 35.1, Red Cell Distribution Width 12.3, Platelet Count 85L, Mean Platelet Volume 9.1, Neutrophils (%) (Auto) , Lymphocytes (%) ( Auto) , Monocytes (%) (Auto) , Eosinophils (%) (Auto) , Basophils (%) (Auto) , Differential Total Cells Counted 100, Neutrophils % (Manual) 35L, Lymphocytes % (Manual) 60H, Monocytes % (Manual) 4, Eosinophils % (Manual) 1, Basophils % ( Manual) 0, Band Neutrophils 0, Platelet Estimate DecreasedL, Platelet Morphology Normal, Sodium Level 142, Potassium Level 3.6, Chloride Level 109H, Carbon Dioxide Level 26, Anion Gap 7, Blood Urea Nitrogen 21H, Creatinine 1.5H, Estimat Glomerular Filtration Rate 57.4, Glucose Level 131H, Calcium Level 7.9L , Phosphorus Level 2.7, Magnesium Level 1.5L, Total Bilirubin 0.4, Aspartate Amino Transf (AST/SGOT) 108H, Alanine Aminotransferase (ALT/SGPT) 54, Alkaline Phosphatase 92, Ammonia 151H, Total Protein 7.2, Albumin 2.0L, Globulin 5.2, Albumin/Globulin Ratio 0.4L, Vitamin B1 Level [Pending] Height (Feet): 6 Height (Inches): 3.00 Weight (Pounds): 191 General Appearance: alert EENT: PERRL/EOMI Neck: supple Cardiovascular: normal rate Respiratory/Chest: lungs clear Abdomen: non tender Extremities: non-tender Neurologic: worm grower II-XII grossly normal Isabel Dangelo MD February 03, 2018 16:01
[2018-02-03] MEDS: Nitroglycerin Patch 0.2mg/hr TDERMAL SCH (16:13)
--- NOTE | 2018-02-03 16:14 | Nephrology Progress Note ---
Assessment/Plan Problem List: (1) Acute renal failure Assessment: Cr lowering (2) Anemia (3) Hyperammonemia Assessment Acute Renal failure ? On Chronic Cr down 1.5 Anemia Others: 1. 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 2. 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 3. h/o Hepatitis C. 4. h/o Peripheral neuropathy. Plan Mag supplement Lactulose- DC HCTZ DC ARBs change IV fluid Flomax Monitor renal parameters per orders Subjective ROS Limited/Unobtainable: No Objective Objective Last 24 Hour Vital Signs Date Time Temp Pulse Resp B/P (MAP) Pulse Ox O2 Delivery O2 Flow Rate FiO2 02/03/18 12:00 97.7 60 18 148/87 100 Room Air 97.7 02/03/18 08:35 64 139/88 02/03/18 08:34 64 139/88 02/03/18 08:00 97.8 64 21 139/88 99 Room Air 97.8 02/03/18 07:55 69 02/03/18 04:00 61 02/03/18 04:00 97.5 64 20 133/76 97 97.5 02/03/18 00:00 97.2 64 18 152/86 97 97.2 02/03/18 00:00 63 02/02/18 20:30 92 149/68 02/02/18 20:00 66 02/02/18 20:00 97.8 92 19 149/68 98 97.8 02/02/18 16:47 158/88 Intake and Output 02/02/18 02/03/18 19:00 07:00 Intake Total 1100 ml 1000 ml Output Total 1800 ml Balance -700 ml 1000 ml Intake Oral 1100 ml IV Total 1000 ml Output Urine Total 1800 ml # Voids 2 Laboratory Tests 02/03/18 06:00: White Blood Count 4.3L, Red Blood Count 3.05L, Hemoglobin 10.5L, Hematocrit 30.0L, Mean Corpuscular Volume 98, Mean Corpuscular Hemoglobin 34.5H, Mean Corpuscular Hemoglobin Concent 35.1, Red Cell Distribution Width 12.3, Platelet Count 85L, Mean Platelet Volume 9.1, Neutrophils (%) (Auto) , Lymphocytes (%) ( Auto) , Monocytes (%) (Auto) , Eosinophils (%) (Auto) , Basophils (%) (Auto) , Differential Total Cells Counted 100, Neutrophils % (Manual) 35L, Lymphocytes % (Manual) 60H, Monocytes % (Manual) 4, Eosinophils % (Manual) 1, Basophils % ( Manual) 0, Band Neutrophils 0, Platelet Estimate DecreasedL, Platelet Morphology Normal, Sodium Level 142, Potassium Level 3.6, Chloride Level 109H, Carbon Dioxide Level 26, Anion Gap 7, Blood Urea Nitrogen 21H, Creatinine 1.5H, Estimat Glomerular Filtration Rate 57.4, Glucose Level 131H, Calcium Level 7.9L , Phosphorus Level 2.7, Magnesium Level 1.5L, Total Bilirubin 0.4, Aspartate Amino Transf (AST/SGOT) 108H, Alanine Aminotransferase (ALT/SGPT) 54, Alkaline Phosphatase 92, Ammonia 151H, Total Protein 7.2, Albumin 2.0L, Globulin 5.2, Albumin/Globulin Ratio 0.4L, Vitamin B1 Level [Pending] Height (Feet): 6 Height (Inches): 3.00 Weight (Pounds): 191 General Appearance: no apparent distress Respiratory/Chest: decreased breath sounds Abdomen: soft MART MOREIRA February 03, 2018 16:14
[2018-02-03] MEDS: Dyna-Hex 2% Top Sol 2oz TOPIC SCH (20:13)
[2018-02-03] MEDS ORDERED: Heparin 5000 units/ml inj SUBQ SCH (21:00)
--- NOTE | 2018-02-03 21:10 | Neurology Progress Note ---
Interim History Interim History Interim History Mr. Grewal feels well today. The mind is clear. He has not noticed any new neurologic symptoms. He denies any weakness on one side or the other, numbness on one side or the other, problems with speech, problems with language, or other neurologic symptoms. He did some walking today and felt steadier on his feet. Review of Systems Neuro Review of Systems Benign. Objective Physical Exam Last Vital Signs Date Time Temp Pulse Resp B/P (MAP) Pulse Ox O2 Delivery O2 Flow Rate FiO2 02/03/18 18:48 97.9 68 18 163/103 97.9 02/03/18 16:00 99 Room Air Laboratory Tests Test 02/03/18 06:00 White Blood Count 4.3 K/UL (4.8-10.8) L Red Blood Count 3.05 M/UL (4.70-6.10) L Hemoglobin 10.5 G/DL (14.2-18.0) L Hematocrit 30.0 % (42.0-52.0) L Mean Corpuscular Volume 98 FL (80-99) Mean Corpuscular Hemoglobin 34.5 PG (27.0-31.0) H Mean Corpuscular Hemoglobin Concent 35.1 G/DL (32.0-36.0) Red Cell Distribution Width 12.3 % (11.6-14.8) Platelet Count 85 K/UL (150-450) L Mean Platelet Volume 9.1 FL (6.5-10.1) Neutrophils (%) (Auto) % (45.0-75.0) Lymphocytes (%) (Auto) % (20.0-45.0) Monocytes (%) (Auto) % (1.0-10.0) Eosinophils (%) (Auto) % (0.0-3.0) Basophils (%) (Auto) % (0.0-2.0) Differential Total Cells Counted 100 Neutrophils % (Manual) 35 % (45-75) L Lymphocytes % (Manual) 60 % (20-45) H Monocytes % (Manual) 4 % (1-10) Eosinophils % (Manual) 1 % (0-3) Basophils % (Manual) 0 % (0-2) Band Neutrophils 0 % (0-8) Platelet Estimate Decreased L Platelet Morphology Normal Sodium Level 142 MMOL/L (136-145) Potassium Level 3.6 MMOL/L (3.5-5.1) Chloride Level 109 MMOL/L (98-107) H Carbon Dioxide Level 26 MMOL/L (21-32) Anion Gap 7 mmol/L (5-15) Blood Urea Nitrogen 21 mg/dL (7-18) H Creatinine 1.5 MG/DL (0.55-1.30) H Estimat Glomerular Filtration Rate 57.4 mL/min (>60) Glucose Level 131 MG/DL (74-106) H Calcium Level 7.9 MG/DL (8.5-10.1) L Phosphorus Level 2.7 MG/DL (2.5-4.9) Magnesium Level 1.5 MG/DL (1.8-2.4) L Total Bilirubin 0.4 MG/DL (0.2-1.0) Aspartate Amino Transf (AST/SGOT) 108 U/L (15-37) H Alanine Aminotransferase (ALT/SGPT) 54 U/L (12-78) Alkaline Phosphatase 92 U/L (46-116) Ammonia 151 umol/L (11-32) H Total Protein 7.2 G/DL (6.4-8.2) Albumin 2.0 G/DL (3.4-5.0) L Globulin 5.2 g/dL Albumin/Globulin Ratio 0.4 (1.0-2.7) L Vitamin B1 Level Pending Neurologic Exam Objective PHYSICAL EXAMINATION: GENERAL: He is a well-developed, well-nourished, pleasant black gentleman, lying bed, in no acute distress. HEAD: Normocephalic and atraumatic. NECK: No neck rigidity was observed. EENT: Examination benign. NEUROLOGIC EXAMINATION: MENTAL STATUS EXAMINATION: He was awake and alert. He was oriented to self, [place], and date. He was able to recall 3/3 words immediately, but could only remember 2/3 words in 1 minute and 3 minutes. He was able to remember presidents, Trump and Obama, but could not remember presidents prior to that. His mathematical skills were impaired. His visuospatial function was also impaired. SPEECH: He had a mild dysarthria, but it should be noted that he was edentulous. LANGUAGE: He had anomia for low and mid frequency words. CRANIAL NERVE EXAMINATION: II: The visual hayes were intact to confrontation testing. III, IV & : The external ocular movements were full and the pupils 3 mm in diameter, equal, round, regular, and reactive to light. V: He had normal facial sensations, and the temporales, masseters, and pterygoids functioned normally. VII: He had left seventh central facial paresis. VIII: He was able to hear well bilaterally and had no nystagmus. IX: The palate moved symmetrically on phonation. X: He had no hoarseness of voice. XI: The sternocleidomastoids and trapezii functioned normally. XII: The tongue was in the midline without any fasciculations or atrophy. MOTOR SYSTEM: The tone was minimally increased in both lower extremities with a mild degree of spasticity. Examination of muscle mass revealed generalized muscle wasting. Examination of power revealed G 5/5 power except for G 5-/5 power in the right iliopsoas, G 4/5 power in the left iliopsoas, G 4++/5 power in the ankle dorsiflexors and toe extensors bilaterally. SENSORY EXAMINATION: He had intact sensations to pinprick and light touch, but complained of a subjective alteration over his entire left body. REFLEXES: 1+ on the right and 1++ on the left at the biceps, triceps, brachioradialis, and knees, 0 at both ankles. The plantar responses were flexor bilaterally. STANCE: He stood up with support on the right side. GAIT: He walked with support on the right side with a left greater than right paraparetic gait - he however was steadier. ABNORMAL MOVEMENTS: Asterixis: G 0/4 in both UEs. Impression/Recommendations Diagnostic Impression 1. Mr. Cy Grewal is a 62-year-old, right-handed, black gentleman, with a past history of hypertension, diabetes mellitus, dyslipidemia, hepatitis, strokes, headaches, and a psychiatric illness, who was brought in for inappropriate behavior, and has since been admitted for renal failure, an encephalopathy and a non-ST elevation myocardial infarction. 2. He feels better today. The mind is clearer. There have been no behavioral problems. He has not noticed any new neurologic symptoms. 3. On neurological examination, at this time, he is brighter. He is fully orientated. He does have problems with recent and remote memory, visuospatial function, higher cognitive function, and language. He also has a mild dysarthria , a left seventh central facial paresis, left greater than right paraparesis, with globally diminished reflexes that are slightly brisker on the left than on the right, decreased sensations over his left body, and a left greater than right paraparetic gait which is definitely better. 4. The CT scan of the brain without contrast reveals atrophy and deep white matter disease, consistent with underlying deep white matter cerebrovascular disease. 5. Laboratory data on my initial evaluation revealed that he was anemic with a hemoglobin of 11.0. His chemistry panel revealed that his BUN was elevated to 52 with a creatinine of 2.9. In addition, he also had a hyperammonemia with an ammonia of 74, his total bilirubin was elevated to 1.2 and his AST was elevated at 192. His free T4 was elevated at 1.56. His urinalysis was relatively benign. His toxicology screen is negative. 6. Further laboratory tests have revealed that his ammonia has elevated to 155, and his ESR is elevated at 105. 7. The MRI of the brain done on 02/01/18 revealed an acute infarct in the right insula, old lacunar infarcts in the left basal ganglia, midbrain and john. Foci of microhemorrhages in the midbrain and left frontal region with encephalomalacia. 8. The patient's history, neurological examination, CT scan and MRI scan findings, and laboratory data are most compatible with a multifactorial encephalopathy, most probably related to his underlying structural brain disease with super-added elevation in his BUN and creatinine and hyperammonemia. 9. The left greater than right paresis, is related to a combination of old and new cerebrovascular disease. Recommendations 1. Continue present management. 2. Continue aspirin 81 mg daily. 3. The patient's blood pressure, blood sugar, and lipids should be controlled. 4. The patient was told to stop smoking immediately again. 5. Physical, occupational, and speech and language therapy. Aric Martinez M.D., M.S.P.Cassi. ARIC MARTINEZ February 03, 2018 21:10
[2018-02-03] MEDS: Morphine Sulfate 4mg/ml Inj IM PRN (21:24)
[2018-02-04] VITALS: BP 148/88
[2018-02-04 04:00] VITALS: BP 145/81
[2018-02-04] MEDS: D5 1/2NS 1,000 ML IV SCH (04:01)
[2018-02-04 05:45] LABS: HEMATOCRIT 29.2 % (42.0-52.0); HEMOGLOBIN 10.5 G/DL (14.2-18.0); MEAN CORPUSCULAR VOLUME 98 FL (80-99); PLATELET COUNT 82 K/UL (150-450); RED BLOOD COUNT 2.98 M/UL (4.70-6.10); RED CELL DISTRIBUTION WIDTH 12.1 % (11.6-14.8); WHITE BLOOD COUNT 4.9 K/UL (4.8-10.8)
[2018-02-04 06:05] LABS: ALANINE AMINOTRANSFERASE 61 U/L (12-78); ALBUMIN 2.2 G/DL (3.4-5.0); ALBUMIN/GLOBULIN RATIO 0.4 (1.0-2.7); ALKALINE PHOSPHATASE 102 U/L (46-116); ANION GAP 5 mmol/L (5-15); ASPARTATE AMINO TRANSFERASE 125 U/L (15-37); BILIRUBIN,TOTAL 0.5 MG/DL (0.2-1.0); BLOOD UREA NITROGEN 18 mg/dL (7-18); CALCIUM 8.4 MG/DL (8.5-10.1); CARBON DIOXIDE 27 MMOL/L (21-32); CHLORIDE 108 MMOL/L (98-107); CREATININE 1.3 MG/DL (0.55-1.30); POTASSIUM 3.4 MMOL/L (3.5-5.1); SODIUM 140 MMOL/L (136-145)
[2018-02-04 08:00] VITALS: BP 154/77
[2018-02-04] MEDS ORDERED: Carvedilol 6.25mg Tab ORAL SCH (09:00)
[2018-02-04] MEDS: Aspirin Baby 81mg ORAL SCH (09:14)
[2018-02-04] MEDS: Carvedilol 6.25mg Tab ORAL SCH (09:14)
[2018-02-04] MEDS: Lactulose 20gm/30ml UDC ORAL SCH ×3 (09:15→18:00)
[2018-02-04] MEDS: Tamsulosin 0.4mg cap ORAL SCH ×2 (09:15→18:44)
--- NOTE | 2018-02-04 10:29 | General Progress Note ---
Assessment/Plan Status: stable Assessment/Plan 1. Acute Right insular ischemic CVA 2.Acute Anemia. 3. Liver cirrhosis. 4. Abnormal Troponin 4. Acute on chronic renal failure. 5. Hyperlipidemia. 6. Hepatitis C 6. Gastrointestinal and deep vein thrombosis prophylaxes. Plan: current management SW for placement Medically stable for outpatient followup Subjective ROS Limited/Unobtainable: No Constitutional: Reports: malaise HEENT: Reports: no symptoms Cardiovascular: Reports: no symptoms Allergies: Coded Allergies: PENICILLINS (Verified Allergy, Unknown, 02/10/17) Objective Last 24 Hour Vital Signs Date Time Temp Pulse Resp B/P (MAP) Pulse Ox O2 Delivery O2 Flow Rate FiO2 02/04/18 09:14 73 154/77 02/04/18 09:14 73 154/77 02/04/18 08:00 98.1 73 20 154/77 98 98.1 02/04/18 04:00 97.3 69 18 145/81 97 Room Air 97.3 02/04/18 00:00 97.7 74 18 148/88 99 Room Air 97.7 02/03/18 20:00 97.5 79 21 158/89 100 Room Air 97.5 02/03/18 18:48 97.9 68 18 163/103 97.9 02/03/18 16:13 176/95 02/03/18 16:00 97.0 65 20 176/95 99 Room Air 97.0 02/03/18 12:00 97.7 60 18 148/87 100 Room Air 97.7 Intake and Output 02/03/18 02/04/18 19:00 07:00 Intake Total 860 ml 1350 ml Output Total 550 ml Balance 310 ml 1350 ml Intake Oral 860 ml 250 ml IV Total 1100 ml Output Urine Total 550 ml # Voids 3 # Bowel Movements 1 2 Laboratory Tests 02/04/18 05:00: White Blood Count 4.9, Red Blood Count 2.98L, Hemoglobin 10.5L, Hematocrit 29.2L , Mean Corpuscular Volume 98, Mean Corpuscular Hemoglobin 35.2H, Mean Corpuscular Hemoglobin Concent 36.0, Red Cell Distribution Width 12.1, Platelet Count 82L, Mean Platelet Volume 9.7, Neutrophils (%) (Auto) , Lymphocytes (%) ( Auto) , Monocytes (%) (Auto) , Eosinophils (%) (Auto) , Basophils (%) (Auto) , Sodium Level 140, Potassium Level 3.4L, Chloride Level 108H, Carbon Dioxide Level 27, Anion Gap 5, Blood Urea Nitrogen 18, Creatinine 1.3, Estimat Glomerular Filtration Rate > 60, Glucose Level 100, Calcium Level 8.4L, Magnesium Level 1.8, Total Bilirubin 0.5, Aspartate Amino Transf (AST/SGOT) 125H , Alanine Aminotransferase (ALT/SGPT) 61, Alkaline Phosphatase 102, Ammonia 61H , Total Protein 7.7, Albumin 2.2L, Globulin 5.5, Albumin/Globulin Ratio 0.4L Height (Feet): 6 Height (Inches): 3.00 Weight (Pounds): 191 General Appearance: no apparent distress EENT: PERRL/EOMI Neck: supple Cardiovascular: normal rate Respiratory/Chest: lungs clear Abdomen: soft Extremities: non-tender Neurologic: documentation analyst II-XII grossly normal Isabel Dangelo MD February 04, 2018 10:29
--- NOTE | 2018-02-04 11:52 | General Progress Note ---
Assessment/Plan Assessment/Plan encephalopathy improving Subjective Date patient seen: February 04, 2018 Allergies: Coded Allergies: PENICILLINS (Verified Allergy, Unknown, 02/10/17) Subjective the pt is improved. The pt is same as yesterday Objective Last 24 Hour Vital Signs Date Time Temp Pulse Resp B/P (MAP) Pulse Ox O2 Delivery O2 Flow Rate FiO2 02/04/18 09:14 73 154/77 02/04/18 09:14 73 154/77 02/04/18 08:00 98.1 73 20 154/77 98 98.1 02/04/18 04:00 97.3 69 18 145/81 97 Room Air 97.3 02/04/18 00:00 97.7 74 18 148/88 99 Room Air 97.7 02/03/18 20:00 97.5 79 21 158/89 100 Room Air 97.5 02/03/18 18:48 97.9 68 18 163/103 97.9 02/03/18 16:13 176/95 02/03/18 16:00 97.0 65 20 176/95 99 Room Air 97.0 02/03/18 12:00 97.7 60 18 148/87 100 Room Air 97.7 Intake and Output 02/03/18 02/04/18 19:00 07:00 Intake Total 860 ml 1350 ml Output Total 550 ml Balance 310 ml 1350 ml Intake Oral 860 ml 250 ml IV Total 1100 ml Output Urine Total 550 ml # Voids 3 # Bowel Movements 1 2 Laboratory Tests 02/04/18 05:00: White Blood Count 4.9, Red Blood Count 2.98L, Hemoglobin 10.5L, Hematocrit 29.2L , Mean Corpuscular Volume 98, Mean Corpuscular Hemoglobin 35.2H, Mean Corpuscular Hemoglobin Concent 36.0, Red Cell Distribution Width 12.1, Platelet Count 82L, Mean Platelet Volume 9.7, Neutrophils (%) (Auto) , Lymphocytes (%) ( Auto) , Monocytes (%) (Auto) , Eosinophils (%) (Auto) , Basophils (%) (Auto) , Sodium Level 140, Potassium Level 3.4L, Chloride Level 108H, Carbon Dioxide Level 27, Anion Gap 5, Blood Urea Nitrogen 18, Creatinine 1.3, Estimat Glomerular Filtration Rate > 60, Glucose Level 100, Calcium Level 8.4L, Magnesium Level 1.8, Total Bilirubin 0.5, Aspartate Amino Transf (AST/SGOT) 125H , Alanine Aminotransferase (ALT/SGPT) 61, Alkaline Phosphatase 102, Ammonia 61H , Total Protein 7.7, Albumin 2.2L, Globulin 5.5, Albumin/Globulin Ratio 0.4L Height (Feet): 6 Height (Inches): 3.00 Weight (Pounds): 191 General Appearance: WD/WN, no apparent distress, alert Vasile Ramirez M.D. February 04, 2018 11:52
[2018-02-04 12:00] VITALS: BP 161/88
--- NOTE | 2018-02-04 13:45 | Nephrology Progress Note ---
Assessment/Plan Problem List: (1) Acute renal failure Assessment: Cr lowering (2) Anemia (3) Hyperammonemia Assessment Acute Renal failure ? On Chronic Cr down now WNL Anemia Others: 1. 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 2. 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 3. h/o Hepatitis C. 4. h/o Peripheral neuropathy. Plan DC IV K supplement Mag supplement as needed Lactulose- Flomax Monitor renal parameters per orders Subjective ROS Limited/Unobtainable: No Constitutional: Reports: malaise Objective Objective Last 24 Hour Vital Signs Date Time Temp Pulse Resp B/P (MAP) Pulse Ox O2 Delivery O2 Flow Rate FiO2 02/04/18 12:00 97.9 65 20 161/88 99 97.9 02/04/18 09:14 73 154/77 02/04/18 09:14 73 154/77 02/04/18 08:00 98.1 73 20 154/77 98 98.1 02/04/18 04:00 97.3 69 18 145/81 97 Room Air 97.3 02/04/18 00:00 97.7 74 18 148/88 99 Room Air 97.7 02/03/18 20:00 97.5 79 21 158/89 100 Room Air 97.5 02/03/18 18:48 97.9 68 18 163/103 97.9 02/03/18 16:13 176/95 02/03/18 16:00 97.0 65 20 176/95 99 Room Air 97.0 Intake and Output 02/03/18 02/04/18 19:00 07:00 Intake Total 860 ml 1350 ml Output Total 550 ml Balance 310 ml 1350 ml Intake Oral 860 ml 250 ml IV Total 1100 ml Output Urine Total 550 ml # Voids 3 # Bowel Movements 1 2 Laboratory Tests 02/04/18 05:00: White Blood Count 4.9, Red Blood Count 2.98L, Hemoglobin 10.5L, Hematocrit 29.2L , Mean Corpuscular Volume 98, Mean Corpuscular Hemoglobin 35.2H, Mean Corpuscular Hemoglobin Concent 36.0, Red Cell Distribution Width 12.1, Platelet Count 82L, Mean Platelet Volume 9.7, Neutrophils (%) (Auto) , Lymphocytes (%) ( Auto) , Monocytes (%) (Auto) , Eosinophils (%) (Auto) , Basophils (%) (Auto) , Sodium Level 140, Potassium Level 3.4L, Chloride Level 108H, Carbon Dioxide Level 27, Anion Gap 5, Blood Urea Nitrogen 18, Creatinine 1.3, Estimat Glomerular Filtration Rate > 60, Glucose Level 100, Calcium Level 8.4L, Magnesium Level 1.8, Total Bilirubin 0.5, Aspartate Amino Transf (AST/SGOT) 125H , Alanine Aminotransferase (ALT/SGPT) 61, Alkaline Phosphatase 102, Ammonia 61H , Total Protein 7.7, Albumin 2.2L, Globulin 5.5, Albumin/Globulin Ratio 0.4L Height (Feet): 6 Height (Inches): 3.00 Weight (Pounds): 191 General Appearance: no apparent distress Abdomen: soft Objective no change MART MOREIRA February 04, 2018 13:45
[2018-02-04] MEDS: Nitroglycerin Patch 0.2mg/hr TDERMAL SCH (15:05)
[2018-02-04 16:00] VITALS: BP 161/87
--- NOTE | 2018-02-04 16:25 | Neurology Progress Note ---
Interim History Interim History Interim History Mr. Grewal feels well. The mind is clear. He has not noticed any new neurologic symptoms. He denies any weakness on one side or the other, numbness on one side or the other, problems with speech, problems with language, or other neurologic symptoms. He did some walking today and was steadier on his feet. Review of Systems Neuro Review of Systems Benign. Objective Physical Exam Last Vital Signs Date Time Temp Pulse Resp B/P (MAP) Pulse Ox O2 Delivery O2 Flow Rate FiO2 02/04/18 15:05 161/88 02/04/18 12:00 97.9 65 20 99 97.9 02/04/18 04:00 Room Air Laboratory Tests Test 02/04/18 05:00 White Blood Count 4.9 K/UL (4.8-10.8) Red Blood Count 2.98 M/UL (4.70-6.10) L Hemoglobin 10.5 G/DL (14.2-18.0) L Hematocrit 29.2 % (42.0-52.0) L Mean Corpuscular Volume 98 FL (80-99) Mean Corpuscular Hemoglobin 35.2 PG (27.0-31.0) H Mean Corpuscular Hemoglobin Concent 36.0 G/DL (32.0-36.0) Red Cell Distribution Width 12.1 % (11.6-14.8) Platelet Count 82 K/UL (150-450) L Mean Platelet Volume 9.7 FL (6.5-10.1) Neutrophils (%) (Auto) % (45.0-75.0) Lymphocytes (%) (Auto) % (20.0-45.0) Monocytes (%) (Auto) % (1.0-10.0) Eosinophils (%) (Auto) % (0.0-3.0) Basophils (%) (Auto) % (0.0-2.0) Sodium Level 140 MMOL/L (136-145) Potassium Level 3.4 MMOL/L (3.5-5.1) L Chloride Level 108 MMOL/L (98-107) H Carbon Dioxide Level 27 MMOL/L (21-32) Anion Gap 5 mmol/L (5-15) Blood Urea Nitrogen 18 mg/dL (7-18) Creatinine 1.3 MG/DL (0.55-1.30) Estimat Glomerular Filtration Rate > 60 mL/min (>60) Glucose Level 100 MG/DL (74-106) Calcium Level 8.4 MG/DL (8.5-10.1) L Magnesium Level 1.8 MG/DL (1.8-2.4) Total Bilirubin 0.5 MG/DL (0.2-1.0) Aspartate Amino Transf (AST/SGOT) 125 U/L (15-37) H Alanine Aminotransferase (ALT/SGPT) 61 U/L (12-78) Alkaline Phosphatase 102 U/L (46-116) Ammonia 61 umol/L (11-32) H Total Protein 7.7 G/DL (6.4-8.2) Albumin 2.2 G/DL (3.4-5.0) L Globulin 5.5 g/dL Albumin/Globulin Ratio 0.4 (1.0-2.7) L Neurologic Exam Objective PHYSICAL EXAMINATION: GENERAL: He is a well-developed, well-nourished, pleasant black gentleman, lying bed, in no acute distress. HEAD: Normocephalic and atraumatic. NECK: No neck rigidity was observed. EENT: Examination benign. NEUROLOGIC EXAMINATION: MENTAL STATUS EXAMINATION: He was awake and alert. He was oriented to self, [facility], and date. He was able to recall 3/3 words immediately, but could only remember 2/3 words in 1 minute and 3 minutes. He was able to remember presidents, Trump and Obama, but could not remember presidents prior to that. His mathematical skills were impaired. His visuospatial function was also impaired. SPEECH: He had a mild dysarthria, but it should be noted that he was edentulous. LANGUAGE: He had anomia for low and mid frequency words. CRANIAL NERVE EXAMINATION: II: The visual hayes were intact to confrontation testing. III, IV & : The external ocular movements were full and the pupils 3 mm in diameter, equal, round, regular, and reactive to light. V: He had normal facial sensations, and the temporales, masseters, and pterygoids functioned normally. VII: He had left seventh central facial paresis. VIII: He was able to hear well bilaterally and had no nystagmus. IX: The palate moved symmetrically on phonation. X: He had no hoarseness of voice. XI: The sternocleidomastoids and trapezii functioned normally. XII: The tongue was in the midline without any fasciculations or atrophy. MOTOR SYSTEM: The tone was minimally increased in both lower extremities with a mild degree of spasticity. Examination of muscle mass revealed generalized muscle wasting. Examination of power revealed G 5/5 power except for G 5-/5 power in the right iliopsoas, G 4/5 power in the left iliopsoas, G 4++/5 power in the ankle dorsiflexors and toe extensors bilaterally. SENSORY EXAMINATION: He had intact sensations to pinprick and light touch, but complained of a subjective alteration over his entire left body. REFLEXES: 1+ on the right and 1++ on the left at the biceps, triceps, brachioradialis, and knees, 0 at both ankles. The plantar responses were flexor bilaterally. STANCE: He stood up with support on the right side. GAIT: He walked with support on the right side with a left greater than right paraparetic gait - he however was steadier. ABNORMAL MOVEMENTS: Asterixis: G 0/4 in both UEs. Impression/Recommendations Status: stable Diagnostic Impression 1. Mr. Cy Grewal is a 62-year-old, right-handed, black gentleman, with a past history of hypertension, diabetes mellitus, dyslipidemia, hepatitis, strokes, headaches, and a psychiatric illness, who was brought in for inappropriate behavior, and has since been admitted for renal failure, an encephalopathy and a non-ST elevation myocardial infarction. 2. He feels better today. The mind is clearer. There have been no behavioral problems. He has not noticed any new neurologic symptoms. 3. On neurological examination, at this time, he is brighter. He is fully orientated. He does have problems with recent and remote memory, visuospatial function, higher cognitive function, and language. He also has a mild dysarthria , a left seventh central facial paresis, left greater than right paraparesis, with globally diminished reflexes that are slightly brisker on the left than on the right, decreased sensations over his left body, and a left greater than right paraparetic gait which is definitely better. 4. The CT scan of the brain without contrast reveals atrophy and deep white matter disease, consistent with underlying deep white matter cerebrovascular disease. 5. Laboratory data on my initial evaluation revealed that he was anemic with a hemoglobin of 11.0. His chemistry panel revealed that his BUN was elevated to 52 with a creatinine of 2.9. In addition, he also had a hyperammonemia with an ammonia of 74, his total bilirubin was elevated to 1.2 and his AST was elevated at 192. His free T4 was elevated at 1.56. His urinalysis was relatively benign. His toxicology screen is negative. 6. Further laboratory tests have revealed that his ammonia has elevated to 155, and his ESR is elevated at 105. 7. The MRI of the brain done on 02/01/18 revealed an acute infarct in the right insula, old lacunar infarcts in the left basal ganglia, midbrain and john. Foci of microhemorrhages in the midbrain and left frontal region with encephalomalacia. 8. The patient's history, neurological examination, CT scan and MRI scan findings, and laboratory data are most compatible with a multifactorial encephalopathy, most probably related to his underlying structural brain disease with super-added elevation in his BUN and creatinine and hyperammonemia. 9. The left greater than right paresis, is related to a combination of old and new cerebrovascular disease. Recommendations 1. Continue present management. 2. Continue aspirin 81 mg daily. 3. The patient's blood pressure, blood sugar, and lipids should be controlled. 4. The patient was told to stop smoking immediately again. 5. Physical, occupational, and speech and language therapy. Aric Martinez M.D., M.S.P.H. ARIC MARTINEZ February 04, 2018 16:25
--- NOTE | 2018-02-04 17:10 | Cardiac Electrophysiology PN ---
Assessment/Plan Assessment/Plan 1. Elevated troponin and inferolateral EKG changes. No chest pain or SOB. Continue aspirin, Lipitor, and Coreg. Troponin levels are flat and likely due to renal failure as Cr was 3.5 Echocardiogram showed Ef 60%. Can't follow protocol for stress test. Procurement Analyst prior ECG to compare 2. Hypertension. Continue Norvasc and Coreg. Avoid GUANAKITO inhibitors in view of renal failure. 3. Acute renal failure. Creatinine 3.5. Today Cr 1.3 4. Hyperlipidemia, on Lipitor. 5. Altered mental status. Follow up neuro and psych.The head CT was negative. Likely due to high ammonia level. MRI brain done 6. Diabetes. 7. Hyperammonemia. Better on lactulose. DODIE RN Subjective Subjective Alert in NAD. RN at bedside. Feeling better. Awaiting placement Objective Last 24 Hour Vital Signs Date Time Temp Pulse Resp B/P (MAP) Pulse Ox O2 Delivery O2 Flow Rate FiO2 02/04/18 16:00 98.4 81 20 161/87 98 98.4 02/04/18 15:05 161/88 02/04/18 12:00 97.9 65 20 161/88 99 97.9 02/04/18 09:14 73 154/77 02/04/18 09:14 73 154/77 02/04/18 08:00 98.1 73 20 154/77 98 98.1 02/04/18 04:00 97.3 69 18 145/81 97 Room Air 97.3 02/04/18 00:00 97.7 74 18 148/88 99 Room Air 97.7 02/03/18 20:00 97.5 79 21 158/89 100 Room Air 97.5 02/03/18 18:48 97.9 68 18 163/103 97.9 Intake and Output 02/03/18 02/04/18 19:00 07:00 Intake Total 860 ml 1350 ml Output Total 550 ml Balance 310 ml 1350 ml Intake Oral 860 ml 250 ml IV Total 1100 ml Output Urine Total 550 ml # Voids 3 # Bowel Movements 1 2 Laboratory Tests Test 02/04/18 05:00 White Blood Count 4.9 K/UL (4.8-10.8) Red Blood Count 2.98 M/UL (4.70-6.10) L Hemoglobin 10.5 G/DL (14.2-18.0) L Hematocrit 29.2 % (42.0-52.0) L Mean Corpuscular Volume 98 FL (80-99) Mean Corpuscular Hemoglobin 35.2 PG (27.0-31.0) H Mean Corpuscular Hemoglobin Concent 36.0 G/DL (32.0-36.0) Red Cell Distribution Width 12.1 % (11.6-14.8) Platelet Count 82 K/UL (150-450) L Mean Platelet Volume 9.7 FL (6.5-10.1) Neutrophils (%) (Auto) % (45.0-75.0) Lymphocytes (%) (Auto) % (20.0-45.0) Monocytes (%) (Auto) % (1.0-10.0) Eosinophils (%) (Auto) % (0.0-3.0) Basophils (%) (Auto) % (0.0-2.0) Sodium Level 140 MMOL/L (136-145) Potassium Level 3.4 MMOL/L (3.5-5.1) L Chloride Level 108 MMOL/L (98-107) H Carbon Dioxide Level 27 MMOL/L (21-32) Anion Gap 5 mmol/L (5-15) Blood Urea Nitrogen 18 mg/dL (7-18) Creatinine 1.3 MG/DL (0.55-1.30) Estimat Glomerular Filtration Rate > 60 mL/min (>60) Glucose Level 100 MG/DL (74-106) Calcium Level 8.4 MG/DL (8.5-10.1) L Magnesium Level 1.8 MG/DL (1.8-2.4) Total Bilirubin 0.5 MG/DL (0.2-1.0) Aspartate Amino Transf (AST/SGOT) 125 U/L (15-37) H Alanine Aminotransferase (ALT/SGPT) 61 U/L (12-78) Alkaline Phosphatase 102 U/L (46-116) Ammonia 61 umol/L (11-32) H Total Protein 7.7 G/DL (6.4-8.2) Albumin 2.2 G/DL (3.4-5.0) L Globulin 5.5 g/dL Albumin/Globulin Ratio 0.4 (1.0-2.7) L Objective HEAD AND NECK: No JVD. LUNGS: Coarse rhonchi. CARDIOVASCULAR: Regular S1 and S2 with no gallop. ABDOMEN: Soft. EXTREMITIES: 1+ pitting edema. Grover Monetnegro MD February 04, 2018 17:10
--- NOTE | 2018-02-04 17:11 | GI Progress Note ---
Assessment/Plan Problems: (1) Hepatitis C ICD Codes: B19.20 - Unspecified viral hepatitis C without hepatic coma SNOMED: 00072717 (2) Liver cirrhosis ICD Codes: K74.60 - Unspecified cirrhosis of liver SNOMED: 04732644 (3) Hepatic encephalopathy ICD Codes: K72.90 - Hepatic failure, unspecified without coma SNOMED: 84255596 (4) Drug abuse ICD Codes: F19.10 - Other psychoactive substance abuse, uncomplicated SNOMED: 88479380 (5) Anemia ICD Codes: D64.9 - Anemia, unspecified SNOMED: 559416846 (6) Hyperammonemia ICD Codes: E72.20 - Disorder of urea cycle metabolism, unspecified SNOMED: 6898107 (7) Homelessness ICD Codes: Z59.0 - Homelessness SNOMED: 93189239 Status: stable Status Narrative Discussed with Dr. Bourne. Assessment/Plan macrocytic hyperchromic anemia >> B12/folate levels normal abdominal U/S reviewed >> Suspected chronic liver disease/cirrhosis. OB stool negative Hepatitis C >> will require outpatient work up and treatment elevated AST >> patient on Lipitor, current use ETOH elevated ammonia levels >> lactulose + xifaxan ppi fu labs, thiamine ETOH cessation education given to patient outpatient GI procedures to evaluate for varices, will need cardiac clearance Subjective Subjective feels better more alert Objective Last 24 Hour Vital Signs Date Time Temp Pulse Resp B/P (MAP) Pulse Ox O2 Delivery O2 Flow Rate FiO2 02/04/18 16:00 98.4 81 20 161/87 98 98.4 02/04/18 15:05 161/88 02/04/18 12:00 97.9 65 20 161/88 99 97.9 02/04/18 09:14 73 154/77 02/04/18 09:14 73 154/77 02/04/18 08:00 98.1 73 20 154/77 98 98.1 02/04/18 04:00 97.3 69 18 145/81 97 Room Air 97.3 02/04/18 00:00 97.7 74 18 148/88 99 Room Air 97.7 02/03/18 20:00 97.5 79 21 158/89 100 Room Air 97.5 02/03/18 18:48 97.9 68 18 163/103 97.9 Intake and Output 02/03/18 02/04/18 19:00 07:00 Intake Total 860 ml 1350 ml Output Total 550 ml Balance 310 ml 1350 ml Intake Oral 860 ml 250 ml IV Total 1100 ml Output Urine Total 550 ml # Voids 3 # Bowel Movements 1 2 Laboratory Tests Test 02/04/18 05:00 White Blood Count 4.9 K/UL (4.8-10.8) Red Blood Count 2.98 M/UL (4.70-6.10) L Hemoglobin 10.5 G/DL (14.2-18.0) L Hematocrit 29.2 % (42.0-52.0) L Mean Corpuscular Volume 98 FL (80-99) Mean Corpuscular Hemoglobin 35.2 PG (27.0-31.0) H Mean Corpuscular Hemoglobin Concent 36.0 G/DL (32.0-36.0) Red Cell Distribution Width 12.1 % (11.6-14.8) Platelet Count 82 K/UL (150-450) L Mean Platelet Volume 9.7 FL (6.5-10.1) Neutrophils (%) (Auto) % (45.0-75.0) Lymphocytes (%) (Auto) % (20.0-45.0) Monocytes (%) (Auto) % (1.0-10.0) Eosinophils (%) (Auto) % (0.0-3.0) Basophils (%) (Auto) % (0.0-2.0) Sodium Level 140 MMOL/L (136-145) Potassium Level 3.4 MMOL/L (3.5-5.1) L Chloride Level 108 MMOL/L (98-107) H Carbon Dioxide Level 27 MMOL/L (21-32) Anion Gap 5 mmol/L (5-15) Blood Urea Nitrogen 18 mg/dL (7-18) Creatinine 1.3 MG/DL (0.55-1.30) Estimat Glomerular Filtration Rate > 60 mL/min (>60) Glucose Level 100 MG/DL (74-106) Calcium Level 8.4 MG/DL (8.5-10.1) L Magnesium Level 1.8 MG/DL (1.8-2.4) Total Bilirubin 0.5 MG/DL (0.2-1.0) Aspartate Amino Transf (AST/SGOT) 125 U/L (15-37) H Alanine Aminotransferase (ALT/SGPT) 61 U/L (12-78) Alkaline Phosphatase 102 U/L (46-116) Ammonia 61 umol/L (11-32) H Total Protein 7.7 G/DL (6.4-8.2) Albumin 2.2 G/DL (3.4-5.0) L Globulin 5.5 g/dL Albumin/Globulin Ratio 0.4 (1.0-2.7) L Height (Feet): 6 Height (Inches): 3.00 Weight (Pounds): 191 General Appearance: WD/WN, no apparent distress, alert Cardiovascular: normal rate Respiratory/Chest: normal breath sounds, no respiratory distress Abdominal Exam: normal bowel sounds, non tender, soft Extremities: normal range of motion, non-tender Raquel Sow N.P. February 04, 2018 17:11
[2018-02-04 20:00] VITALS: BP 137/96
[2018-02-04] MEDS: Dyna-Hex 2% Top Sol 2oz TOPIC SCH (20:14)
[2018-02-05] VITALS: BP 134/89
[2018-02-05] MEDS: Morphine Sulfate 4mg/ml Inj IM PRN ×2 (03:52→17:47)
[2018-02-05 04:00] VITALS: BP 144/87
[2018-02-05 05:29] LABS: HEMOGLOBIN 10.7 G/DL (14.2-18.0); MEAN CORPUSCULAR VOLUME 99 FL (80-99); PLATELET COUNT 79 K/UL (150-450); RED BLOOD COUNT 3.05 M/UL (4.70-6.10); RED CELL DISTRIBUTION WIDTH 12.2 % (11.6-14.8); WHITE BLOOD COUNT 5.5 K/UL (4.8-10.8)
[2018-02-05 05:40] LABS: AMMONIA 81 umol/L (11-32)
[2018-02-05 05:42] LABS: ANION GAP 3 mmol/L (5-15); BLOOD UREA NITROGEN 21 mg/dL (7-18); CALCIUM 8.5 MG/DL (8.5-10.1); CARBON DIOXIDE 28 MMOL/L (21-32); CHLORIDE 107 MMOL/L (98-107); CREATININE 1.3 MG/DL (0.55-1.30); PHOSPHORUS 3.2 MG/DL (2.5-4.9); POTASSIUM 3.8 MMOL/L (3.5-5.1); SODIUM 138 MMOL/L (136-145)
[2018-02-05] MEDS: Tamsulosin 0.4mg cap ORAL SCH ×2 (08:39→17:38)
[2018-02-05 08:40] VITALS: BP 150/80
[2018-02-05] MEDS: Aspirin Baby 81mg ORAL SCH (08:40)
[2018-02-05] MEDS: Carvedilol 6.25mg Tab ORAL SCH (08:40)
[2018-02-05] MEDS: Lactulose 20gm/30ml UDC ORAL SCH ×3 (08:41→17:38)
--- NOTE | 2018-02-05 11:31 | GI Progress Note ---
Assessment/Plan Problems: (1) Hepatitis C ICD Codes: B19.20 - Unspecified viral hepatitis C without hepatic coma SNOMED: 84621793 (2) Liver cirrhosis ICD Codes: K74.60 - Unspecified cirrhosis of liver SNOMED: 31785869 (3) Hepatic encephalopathy ICD Codes: K72.90 - Hepatic failure, unspecified without coma SNOMED: 37628426 (4) Drug abuse ICD Codes: F19.10 - Other psychoactive substance abuse, uncomplicated SNOMED: 35302280 (5) Anemia ICD Codes: D64.9 - Anemia, unspecified SNOMED: 732828062 (6) Hyperammonemia ICD Codes: E72.20 - Disorder of urea cycle metabolism, unspecified SNOMED: 0384576 (7) Homelessness ICD Codes: Z59.0 - Homelessness SNOMED: 36321205 Status: stable Status Narrative Discussed with Dr. Bourne. Assessment/Plan macrocytic hyperchromic anemia >> B12/folate levels normal abdominal U/S reviewed >> Suspected chronic liver disease/cirrhosis. OB stool negative Hepatitis C >> will require outpatient work up and treatment elevated AST >> patient on Lipitor, current use ETOH >> trend elevated ammonia levels >> lactulose + xifaxan ppi fu labs ETOH cessation education given to patient outpatient GI procedures to evaluate for varices, will need cardiac clearance Subjective Subjective feels better more alert Objective Last 24 Hour Vital Signs Date Time Temp Pulse Resp B/P (MAP) Pulse Ox O2 Delivery O2 Flow Rate FiO2 02/05/18 08:40 69 150/80 02/05/18 08:40 69 150/80 02/05/18 08:40 97.7 69 20 150/80 98 97.7 02/05/18 04:22 98.0 02/05/18 04:00 97.6 65 18 144/87 96 97.6 02/05/18 03:52 98.0 02/05/18 00:00 98.0 80 18 134/89 100 98.0 02/04/18 20:00 98.2 82 18 137/96 100 98.2 02/04/18 16:00 98.4 81 20 161/87 98 98.4 02/04/18 15:05 161/88 02/04/18 12:00 97.9 65 20 161/88 99 97.9 Intake and Output 02/04/18 02/05/18 19:00 07:00 Intake Total 750 ml 650 ml Output Total 1600 ml 2400 ml Balance -850 ml -1750 ml Intake Oral 750 ml 650 ml Output Urine Total 1600 ml 2400 ml # Bowel Movements 3 Laboratory Tests Test 02/05/18 05:10 White Blood Count 5.5 K/UL (4.8-10.8) Red Blood Count 3.05 M/UL (4.70-6.10) L Hemoglobin 10.7 G/DL (14.2-18.0) L Hematocrit 30.0 % (42.0-52.0) L Mean Corpuscular Volume 99 FL (80-99) Mean Corpuscular Hemoglobin 35.1 PG (27.0-31.0) H Mean Corpuscular Hemoglobin Concent 35.5 G/DL (32.0-36.0) Red Cell Distribution Width 12.2 % (11.6-14.8) Platelet Count 79 K/UL (150-450) L Mean Platelet Volume 8.7 FL (6.5-10.1) Neutrophils (%) (Auto) % (45.0-75.0) Lymphocytes (%) (Auto) % (20.0-45.0) Monocytes (%) (Auto) % (1.0-10.0) Eosinophils (%) (Auto) % (0.0-3.0) Basophils (%) (Auto) % (0.0-2.0) Sodium Level Pending Potassium Level 3.8 MMOL/L (3.5-5.1) Chloride Level 107 MMOL/L (98-107) Carbon Dioxide Level 28 MMOL/L (21-32) Anion Gap 3 mmol/L (5-15) L Blood Urea Nitrogen 21 mg/dL (7-18) H Creatinine 1.3 MG/DL (0.55-1.30) Estimat Glomerular Filtration Rate > 60 mL/min (>60) Glucose Level 110 MG/DL (74-106) H Calcium Level 8.5 MG/DL (8.5-10.1) Phosphorus Level 3.2 MG/DL (2.5-4.9) Magnesium Level 1.6 MG/DL (1.8-2.4) L Ammonia 81 umol/L (11-32) H Height (Feet): 6 Height (Inches): 3.00 Weight (Pounds): 191 General Appearance: WD/WN, no apparent distress, alert Cardiovascular: normal rate Respiratory/Chest: normal breath sounds, no respiratory distress Abdominal Exam: normal bowel sounds, non tender, soft Extremities: normal range of motion, non-tender Raquel Sow N.P. February 05, 2018 11:31
--- NOTE | 2018-02-05 11:37 | General Progress Note ---
Assessment/Plan Status: stable, progressing Assessment/Plan encephalopathy improved the pt was provided ro/st Subjective Date patient seen: February 05, 2018 Neurologic/Psychiatric: Reports: anxiety, emotional problems Allergies: Coded Allergies: PENICILLINS (Verified Allergy, Unknown, 02/10/17) Subjective the pt is improved. The pt is same as yesterday. the pt is more alert Objective Last 24 Hour Vital Signs Date Time Temp Pulse Resp B/P (MAP) Pulse Ox O2 Delivery O2 Flow Rate FiO2 02/05/18 08:40 69 150/80 02/05/18 08:40 69 150/80 02/05/18 08:40 97.7 69 20 150/80 98 97.7 02/05/18 04:22 98.0 02/05/18 04:00 97.6 65 18 144/87 96 97.6 02/05/18 03:52 98.0 02/05/18 00:00 98.0 80 18 134/89 100 98.0 02/04/18 20:00 98.2 82 18 137/96 100 98.2 02/04/18 16:00 98.4 81 20 161/87 98 98.4 02/04/18 15:05 161/88 02/04/18 12:00 97.9 65 20 161/88 99 97.9 Intake and Output 02/04/18 02/05/18 19:00 07:00 Intake Total 750 ml 650 ml Output Total 1600 ml 2400 ml Balance -850 ml -1750 ml Intake Oral 750 ml 650 ml Output Urine Total 1600 ml 2400 ml # Bowel Movements 3 Laboratory Tests 02/05/18 05:10: White Blood Count 5.5, Red Blood Count 3.05L, Hemoglobin 10.7L, Hematocrit 30.0L , Mean Corpuscular Volume 99, Mean Corpuscular Hemoglobin 35.1H, Mean Corpuscular Hemoglobin Concent 35.5, Red Cell Distribution Width 12.2, Platelet Count 79L, Mean Platelet Volume 8.7, Neutrophils (%) (Auto) , Lymphocytes (%) ( Auto) , Monocytes (%) (Auto) , Eosinophils (%) (Auto) , Basophils (%) (Auto) , Sodium Level [Pending], Potassium Level 3.8, Chloride Level 107, Carbon Dioxide Level 28, Anion Gap 3L, Blood Urea Nitrogen 21H, Creatinine 1.3, Estimat Glomerular Filtration Rate > 60, Glucose Level 110H, Calcium Level 8.5, Phosphorus Level 3.2, Magnesium Level 1.6L, Ammonia 81H Height (Feet): 6 Height (Inches): 3.00 Weight (Pounds): 191 General Appearance: WD/WN, no apparent distress, alert Neurologic: oriented x 3, responsive, depressed affect Vasile Ramirez M.D. February 05, 2018 11:37
[2018-02-05 11:56] VITALS: BP 129/79
--- NOTE | 2018-02-05 12:31 | General Progress Note ---
Assessment/Plan Status: stable Assessment/Plan 1. Acute Right insular ischemic CVA 2.Acute Anemia. 3. Liver cirrhosis. 4. Abnormal Troponin 4. Acute on chronic renal failure. 5. Hyperlipidemia. 6. Hepatitis C 6. Gastrointestinal and deep vein thrombosis prophylaxes. Plan: current management SW for placement Medically stable for outpatient followup Subjective ROS Limited/Unobtainable: No Constitutional: Reports: weakness HEENT: Reports: no symptoms Allergies: Coded Allergies: PENICILLINS (Verified Allergy, Unknown, 02/10/17) Objective Last 24 Hour Vital Signs Date Time Temp Pulse Resp B/P (MAP) Pulse Ox O2 Delivery O2 Flow Rate FiO2 02/05/18 11:56 97.7 65 20 129/79 100 97.7 02/05/18 08:40 69 150/80 02/05/18 08:40 69 150/80 02/05/18 08:40 97.7 69 20 150/80 98 97.7 02/05/18 04:22 98.0 02/05/18 04:00 97.6 65 18 144/87 96 97.6 02/05/18 03:52 98.0 02/05/18 00:00 98.0 80 18 134/89 100 98.0 02/04/18 20:00 98.2 82 18 137/96 100 98.2 02/04/18 16:00 98.4 81 20 161/87 98 98.4 02/04/18 15:05 161/88 Intake and Output 02/04/18 02/05/18 19:00 07:00 Intake Total 750 ml 650 ml Output Total 1600 ml 2400 ml Balance -850 ml -1750 ml Intake Oral 750 ml 650 ml Output Urine Total 1600 ml 2400 ml # Bowel Movements 3 Laboratory Tests 02/05/18 05:10: White Blood Count 5.5, Red Blood Count 3.05L, Hemoglobin 10.7L, Hematocrit 30.0L , Mean Corpuscular Volume 99, Mean Corpuscular Hemoglobin 35.1H, Mean Corpuscular Hemoglobin Concent 35.5, Red Cell Distribution Width 12.2, Platelet Count 79L, Mean Platelet Volume 8.7, Neutrophils (%) (Auto) , Lymphocytes (%) ( Auto) , Monocytes (%) (Auto) , Eosinophils (%) (Auto) , Basophils (%) (Auto) , Sodium Level [Pending], Potassium Level 3.8, Chloride Level 107, Carbon Dioxide Level 28, Anion Gap 3L, Blood Urea Nitrogen 21H, Creatinine 1.3, Estimat Glomerular Filtration Rate > 60, Glucose Level 110H, Calcium Level 8.5, Phosphorus Level 3.2, Magnesium Level 1.6L, Ammonia 81H Height (Feet): 6 Height (Inches): 3.00 Weight (Pounds): 191 General Appearance: no apparent distress EENT: PERRL/EOMI Neck: supple Cardiovascular: normal peripheral pulses Respiratory/Chest: lungs clear Abdomen: soft Extremities: non-tender Isaebl Dangelo MD February 05, 2018 12:31
--- NOTE | 2018-02-05 13:14 | Nephrology Progress Note ---
Assessment/Plan Problem List: (1) Acute renal failure Assessment: Cr lowering (2) Anemia (3) Hyperammonemia Assessment Acute Renal failure ? On Chronic Cr down now WNL Anemia Others: 1. 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 2. 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 3. h/o Hepatitis C. 4. h/o Peripheral neuropathy. Plan DC IV K supplement Mag supplement as needed Lactulose- Flomax Monitor renal parameters per orders Subjective ROS Limited/Unobtainable: No Objective Objective Last 24 Hour Vital Signs Date Time Temp Pulse Resp B/P (MAP) Pulse Ox O2 Delivery O2 Flow Rate FiO2 02/05/18 11:56 97.7 65 20 129/79 100 97.7 02/05/18 08:40 69 150/80 02/05/18 08:40 69 150/80 02/05/18 08:40 97.7 69 20 150/80 98 97.7 02/05/18 04:22 98.0 02/05/18 04:00 97.6 65 18 144/87 96 97.6 02/05/18 03:52 98.0 02/05/18 00:00 98.0 80 18 134/89 100 98.0 02/04/18 20:00 98.2 82 18 137/96 100 98.2 02/04/18 16:00 98.4 81 20 161/87 98 98.4 02/04/18 15:05 161/88 Intake and Output 02/04/18 02/05/18 19:00 07:00 Intake Total 750 ml 650 ml Output Total 1600 ml 2400 ml Balance -850 ml -1750 ml Intake Oral 750 ml 650 ml Output Urine Total 1600 ml 2400 ml # Bowel Movements 3 Laboratory Tests 02/05/18 05:10: White Blood Count 5.5, Red Blood Count 3.05L, Hemoglobin 10.7L, Hematocrit 30.0L , Mean Corpuscular Volume 99, Mean Corpuscular Hemoglobin 35.1H, Mean Corpuscular Hemoglobin Concent 35.5, Red Cell Distribution Width 12.2, Platelet Count 79L, Mean Platelet Volume 8.7, Neutrophils (%) (Auto) , Lymphocytes (%) ( Auto) , Monocytes (%) (Auto) , Eosinophils (%) (Auto) , Basophils (%) (Auto) , Sodium Level [Pending], Potassium Level 3.8, Chloride Level 107, Carbon Dioxide Level 28, Anion Gap 3L, Blood Urea Nitrogen 21H, Creatinine 1.3, Estimat Glomerular Filtration Rate > 60, Glucose Level 110H, Calcium Level 8.5, Phosphorus Level 3.2, Magnesium Level 1.6L, Ammonia 81H Height (Feet): 6 Height (Inches): 3.00 Weight (Pounds): 191 General Appearance: no apparent distress Objective no change MART MOREIRA February 05, 2018 13:14
--- NOTE | 2018-02-05 14:13 | Neurology Progress Note ---
Interim History Interim History Interim History Mr. Grewal feels well. The mind is clear. He has not noticed any new neurologic symptoms. He denies any weakness on one side or the other, numbness on one side or the other, problems with speech, problems with language, or other neurologic symptoms. He did some walking today and was steadier on his feet but was still having problems with walking. Plans are for transfer to a SNF. Review of Systems Neuro Review of Systems Benign. Objective Physical Exam Last Vital Signs Date Time Temp Pulse Resp B/P (MAP) Pulse Ox O2 Delivery O2 Flow Rate FiO2 02/05/18 11:56 97.7 65 20 129/79 100 97.7 02/04/18 04:00 Room Air Laboratory Tests Test 02/05/18 05:10 White Blood Count 5.5 K/UL (4.8-10.8) Red Blood Count 3.05 M/UL (4.70-6.10) L Hemoglobin 10.7 G/DL (14.2-18.0) L Hematocrit 30.0 % (42.0-52.0) L Mean Corpuscular Volume 99 FL (80-99) Mean Corpuscular Hemoglobin 35.1 PG (27.0-31.0) H Mean Corpuscular Hemoglobin Concent 35.5 G/DL (32.0-36.0) Red Cell Distribution Width 12.2 % (11.6-14.8) Platelet Count 79 K/UL (150-450) L Mean Platelet Volume 8.7 FL (6.5-10.1) Neutrophils (%) (Auto) % (45.0-75.0) Lymphocytes (%) (Auto) % (20.0-45.0) Monocytes (%) (Auto) % (1.0-10.0) Eosinophils (%) (Auto) % (0.0-3.0) Basophils (%) (Auto) % (0.0-2.0) Sodium Level Pending Potassium Level 3.8 MMOL/L (3.5-5.1) Chloride Level 107 MMOL/L (98-107) Carbon Dioxide Level 28 MMOL/L (21-32) Anion Gap 3 mmol/L (5-15) L Blood Urea Nitrogen 21 mg/dL (7-18) H Creatinine 1.3 MG/DL (0.55-1.30) Estimat Glomerular Filtration Rate > 60 mL/min (>60) Glucose Level 110 MG/DL (74-106) H Calcium Level 8.5 MG/DL (8.5-10.1) Phosphorus Level 3.2 MG/DL (2.5-4.9) Magnesium Level 1.6 MG/DL (1.8-2.4) L Ammonia 81 umol/L (11-32) H Neurologic Exam Objective PHYSICAL EXAMINATION: GENERAL: He is a well-developed, well-nourished, pleasant black gentleman, lying bed, in no acute distress. HEAD: Normocephalic and atraumatic. NECK: No neck rigidity was observed. EENT: Examination benign. NEUROLOGIC EXAMINATION: MENTAL STATUS EXAMINATION: He was awake and alert. He was oriented to self, [employer], and date. He was able to recall 3/3 words immediately, but could only remember 2/3 words in 1 minute and 3 minutes. He was able to remember presidents, Trump and Obama, but could not remember presidents prior to that. His mathematical skills were impaired. His visuospatial function was also impaired. SPEECH: He had a mild dysarthria, but it should be noted that he was edentulous. LANGUAGE: He had anomia for low and mid frequency words. CRANIAL NERVE EXAMINATION: II: The visual hayes were intact to confrontation testing. III, IV & : The external ocular movements were full and the pupils 3 mm in diameter, equal, round, regular, and reactive to light. V: He had normal facial sensations, and the temporales, masseters, and pterygoids functioned normally. VII: He had left seventh central facial paresis. VIII: He was able to hear well bilaterally and had no nystagmus. IX: The palate moved symmetrically on phonation. X: He had no hoarseness of voice. XI: The sternocleidomastoids and trapezii functioned normally. XII: The tongue was in the midline without any fasciculations or atrophy. MOTOR SYSTEM: The tone was minimally increased in both lower extremities with a mild degree of spasticity. Examination of muscle mass revealed generalized muscle wasting. Examination of power revealed G 5/5 power except for G 5-/5 power in the right iliopsoas, G 4/5 power in the left iliopsoas, G 4++/5 power in the ankle dorsiflexors and toe extensors bilaterally. SENSORY EXAMINATION: He had intact sensations to pinprick and light touch, but complained of a subjective alteration over his entire left body. REFLEXES: 1+ on the right and 1++ on the left at the biceps, triceps, brachioradialis, and knees, 0 at both ankles. The plantar responses were flexor bilaterally. STANCE: He stood up with support on the right side. GAIT: He walked with support on the right side with a left greater than right paraparetic gait - he however was steadier. ABNORMAL MOVEMENTS: Asterixis: G 0/4 in both UEs. Impression/Recommendations Diagnostic Impression 1. Mr. Cy Grewal is a 62-year-old, right-handed, black gentleman, with a past history of hypertension, diabetes mellitus, dyslipidemia, hepatitis, strokes, headaches, and a psychiatric illness, who was brought in for inappropriate behavior, and has since been admitted for renal failure, an encephalopathy and a non-ST elevation myocardial infarction. 2. He feels well. The mind is clear. He has not noticed any new neurologic symptoms. He denies any weakness on one side or the other, numbness on one side or the other, problems with speech, problems with language, or other neurologic symptoms. He did some walking today and was steadier on his feet but was still having problems with walking. Plans are for transfer to a SNF. 3. On neurological examination, at this time, he is awake and alert. He is fully orientated. He does have problems with recent and remote memory, visuospatial function, higher cognitive function, and language. He also has a mild dysarthria, a left seventh central facial paresis, left greater than right paraparesis, with globally diminished reflexes that are slightly brisker on the left than on the right, decreased sensations over his left body, and a left greater than right paraparetic gait which is definitely better. 4. The CT scan of the brain without contrast reveals atrophy and deep white matter disease, consistent with underlying deep white matter cerebrovascular disease. 5. Laboratory data on my initial evaluation revealed that he was anemic with a hemoglobin of 11.0. His chemistry panel revealed that his BUN was elevated to 52 with a creatinine of 2.9. In addition, he also had a hyperammonemia with an ammonia of 74, his total bilirubin was elevated to 1.2 and his AST was elevated at 192. His free T4 was elevated at 1.56. His urinalysis was relatively benign. His toxicology screen is negative. 6. Further laboratory tests have revealed that his ammonia has elevated to 155, and his ESR is elevated at 105. 7. The MRI of the brain done on 02/01/18 revealed an acute infarct in the right insula, old lacunar infarcts in the left basal ganglia, midbrain and john. Foci of microhemorrhages in the midbrain and left frontal region with encephalomalacia. 8. The patient's history, neurological examination, CT scan and MRI scan findings, and laboratory data are most compatible with a multifactorial encephalopathy, most probably related to his underlying structural brain disease with super-added elevation in his BUN and creatinine and hyperammonemia. 9. The left greater than right paresis, is related to a combination of old and new cerebrovascular disease but is improving. Recommendations 1. Continue present management. 2. Continue aspirin 81 mg daily. 3. The patient's blood pressure, blood sugar, and lipids should be controlled. 4. The patient was told to stop smoking immediately again. 5. Physical, occupational, and speech and language therapy. Aric Martinez M.D., M.S.P.Cassi. ARIC MARTINEZ February 05, 2018 14:13
[2018-02-05 15:54] VITALS: BP 150/85
--- NOTE | 2018-02-05 15:58 | Cardiac Electrophysiology PN ---
Assessment/Plan Assessment/Plan 1. Elevated troponin and inferolateral EKG changes. No chest pain or SOB. Continue aspirin, Lipitor, and Coreg. Troponin levels are flat and likely due to renal failure as Cr was 3.5 Echocardiogram showed Ef 60%. Can't follow protocol for stress test. Partner Manager prior ECG to compare 2. Hypertension. Continue Norvasc and Coreg. Avoid GUANAKITO inhibitors in view of renal failure. 3. Acute renal failure. Creatinine 3.5. Resolved Cr 1.3 4. Hyperlipidemia, on Lipitor. 5. Altered mental status. Follow up neuro and psych.The head CT was negative. Likely due to high ammonia level. 6. Diabetes. 7. Hyperammonemia. Better on lactulose. DODIE RN DC planning in progress Subjective Subjective Alert in NAD. Feeling better. Awaiting placement Objective Last 24 Hour Vital Signs Date Time Temp Pulse Resp B/P (MAP) Pulse Ox O2 Delivery O2 Flow Rate FiO2 02/05/18 15:54 98.1 70 20 150/85 99 98.1 02/05/18 11:56 97.7 65 20 129/79 100 97.7 02/05/18 08:40 69 150/80 02/05/18 08:40 69 150/80 02/05/18 08:40 97.7 69 20 150/80 98 97.7 02/05/18 04:22 98.0 02/05/18 04:00 97.6 65 18 144/87 96 97.6 02/05/18 03:52 98.0 02/05/18 00:00 98.0 80 18 134/89 100 98.0 02/04/18 20:00 98.2 82 18 137/96 100 98.2 02/04/18 16:00 98.4 81 20 161/87 98 98.4 Intake and Output 02/04/18 02/05/18 19:00 07:00 Intake Total 750 ml 650 ml Output Total 1600 ml 2400 ml Balance -850 ml -1750 ml Intake Oral 750 ml 650 ml Output Urine Total 1600 ml 2400 ml # Bowel Movements 3 Laboratory Tests Test 02/05/18 05:10 White Blood Count 5.5 K/UL (4.8-10.8) Red Blood Count 3.05 M/UL (4.70-6.10) L Hemoglobin 10.7 G/DL (14.2-18.0) L Hematocrit 30.0 % (42.0-52.0) L Mean Corpuscular Volume 99 FL (80-99) Mean Corpuscular Hemoglobin 35.1 PG (27.0-31.0) H Mean Corpuscular Hemoglobin Concent 35.5 G/DL (32.0-36.0) Red Cell Distribution Width 12.2 % (11.6-14.8) Platelet Count 79 K/UL (150-450) L Mean Platelet Volume 8.7 FL (6.5-10.1) Neutrophils (%) (Auto) % (45.0-75.0) Lymphocytes (%) (Auto) % (20.0-45.0) Monocytes (%) (Auto) % (1.0-10.0) Eosinophils (%) (Auto) % (0.0-3.0) Basophils (%) (Auto) % (0.0-2.0) Sodium Level Pending Potassium Level 3.8 MMOL/L (3.5-5.1) Chloride Level 107 MMOL/L (98-107) Carbon Dioxide Level 28 MMOL/L (21-32) Anion Gap 3 mmol/L (5-15) L Blood Urea Nitrogen 21 mg/dL (7-18) H Creatinine 1.3 MG/DL (0.55-1.30) Estimat Glomerular Filtration Rate > 60 mL/min (>60) Glucose Level 110 MG/DL (74-106) H Calcium Level 8.5 MG/DL (8.5-10.1) Phosphorus Level 3.2 MG/DL (2.5-4.9) Magnesium Level 1.6 MG/DL (1.8-2.4) L Ammonia 81 umol/L (11-32) H Objective HEAD AND NECK: No JVD. LUNGS: Coarse rhonchi. CARDIOVASCULAR: Regular S1 and S2 with no gallop. ABDOMEN: Soft. EXTREMITIES: No edema. Grover Montenegro MD February 05, 2018 15:58
[2018-02-05] MEDS: Nitroglycerin Patch 0.2mg/hr TDERMAL SCH (16:22)
[2018-02-05] MEDS ORDERED: NS 500ML ONE (16:42)
[2018-02-05] MEDS ORDERED: Tubing IV Secondary IV ONE (16:42)
[2018-02-05] MEDS ORDERED: D5 1/2NS 1000ml IV ONE (16:51)
[2018-02-05 20:00] VITALS: BP 142/85
[2018-02-05] MEDS: Dyna-Hex 2% Top Sol 2oz TOPIC SCH (20:08)
[2018-02-06] VITALS (8 sets, daily range): BP systolic 134–185; BP diastolic 76–99
[2018-02-06 05:30] LABS: HEMATOCRIT 29.9 % (42.0-52.0); HEMOGLOBIN 10.8 G/DL (14.2-18.0); MEAN CORPUSCULAR VOLUME 98 FL (80-99); PLATELET COUNT 91 K/UL (150-450); RED BLOOD COUNT 3.06 M/UL (4.70-6.10); RED CELL DISTRIBUTION WIDTH 12.1 % (11.6-14.8); WHITE BLOOD COUNT 5.3 K/UL (4.8-10.8)
[2018-02-06 05:49] LABS: ALANINE AMINOTRANSFERASE 96 U/L (12-78); ALBUMIN 2.2 G/DL (3.4-5.0); ALBUMIN/GLOBULIN RATIO 0.4 (1.0-2.7); ALKALINE PHOSPHATASE 127 U/L (46-116); ANION GAP 4 mmol/L (5-15); ASPARTATE AMINO TRANSFERASE 174 U/L (15-37); BILIRUBIN,TOTAL 0.4 MG/DL (0.2-1.0); BLOOD UREA NITROGEN 26 mg/dL (7-18); CALCIUM 8.4 MG/DL (8.5-10.1); CARBON DIOXIDE 27 MMOL/L (21-32); CHLORIDE 107 MMOL/L (98-107); CREATININE 1.3 MG/DL (0.55-1.30); POTASSIUM 3.9 MMOL/L (3.5-5.1); SODIUM 138 MMOL/L (136-145)
[2018-02-06 05:51] LABS: AMMONIA 92 umol/L (11-32)
[2018-02-06] MEDS: Lactulose 20gm/30ml UDC ORAL SCH ×3 (08:42→17:42)
[2018-02-06] MEDS: Tamsulosin 0.4mg cap ORAL SCH ×2 (08:42→17:43)
[2018-02-06] MEDS: Aspirin Baby 81mg ORAL SCH (08:43)
[2018-02-06] MEDS: Carvedilol 6.25mg Tab ORAL SCH (08:43)
--- NOTE | 2018-02-06 09:57 | Nephrology Progress Note ---
Assessment/Plan Problem List: (1) Acute renal failure Assessment: Cr lowering (2) Anemia (3) Hyperammonemia Assessment Acute Renal failure ? On Chronic Cr down now WNL Anemia Others: 1. 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 2. 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 3. h/o Hepatitis C. 4. h/o Peripheral neuropathy. Plan DC IV K supplement Mag supplement as needed Lactulose- Flomax Monitor renal parameters per orders Subjective ROS Limited/Unobtainable: No Objective Objective Last 24 Hour Vital Signs Date Time Temp Pulse Resp B/P (MAP) Pulse Ox O2 Delivery O2 Flow Rate FiO2 02/06/18 08:43 70 158/84 02/06/18 08:42 70 158/84 02/06/18 08:07 98.0 70 20 158/84 99 98.0 02/06/18 04:00 97.7 68 19 147/87 100 Room Air 97.7 02/06/18 00:00 98.4 86 20 134/76 97 Room Air 98.4 02/05/18 20:00 97 Room Air 02/05/18 20:00 98.2 69 18 142/85 97 Room Air 98.2 02/05/18 18:17 98.1 02/05/18 17:47 98.1 02/05/18 16:22 150/85 02/05/18 15:54 98.1 70 20 150/85 99 98.1 02/05/18 11:56 97.7 65 20 129/79 100 97.7 Intake and Output 02/05/18 02/06/18 19:00 07:00 Intake Total 1450 ml Output Total 1350 ml Balance 100 ml Intake Oral 1250 ml IV Total 200 ml Output Urine Total 1350 ml # Voids 2 3 Laboratory Tests 02/06/18 05:00: White Blood Count 5.3, Red Blood Count 3.06L, Hemoglobin 10.8L, Hematocrit 29.9L , Mean Corpuscular Volume 98, Mean Corpuscular Hemoglobin 35.2H, Mean Corpuscular Hemoglobin Concent 36.0, Red Cell Distribution Width 12.1, Platelet Count 91L, Mean Platelet Volume 11.6H, Neutrophils (%) (Auto) , Lymphocytes (%) (Auto) , Monocytes (%) (Auto) , Eosinophils (%) (Auto) , Basophils (%) (Auto) , Differential Total Cells Counted 100, Neutrophils % (Manual) 27L, Lymphocytes % (Manual) 63H, Monocytes % (Manual) 6, Eosinophils % (Manual) 4H, Basophils % ( Manual) 0, Band Neutrophils 0, Reactive Lymphocytes Occasional, Platelet Estimate DecreasedL, Platelet Morphology Normal, Hypochromasia , Anisocytosis 1+ , Sodium Level 138, Potassium Level 3.9, Chloride Level 107, Carbon Dioxide Level 27, Anion Gap 4L, Blood Urea Nitrogen 26H, Creatinine 1.3, Estimat Glomerular Filtration Rate > 60, Glucose Level 111H, Calcium Level 8.4L, Total Bilirubin 0.4, Aspartate Amino Transf (AST/SGOT) 174H, Alanine Aminotransferase (ALT/SGPT) 96H, Alkaline Phosphatase 127H, Ammonia 92H, Total Protein 7.8, Albumin 2.2L, Globulin 5.6, Albumin/Globulin Ratio 0.4L Height (Feet): 6 Height (Inches): 3.00 Weight (Pounds): 191 General Appearance: no apparent distress Objective no change MART MOREIRA February 06, 2018 09:57
--- NOTE | 2018-02-06 11:27 | General Progress Note ---
Assessment/Plan Status: stable Assessment/Plan 1. Acute Right insular ischemic CVA 2.Acute Anemia. 3. Liver cirrhosis. 4. Abnormal Troponin 4. Acute on chronic renal failure. 5. Hyperlipidemia. 6. Hepatitis C 6. Gastrointestinal and deep vein thrombosis prophylaxes. Plan: current management SW for placement Medically stable for outpatient followup , preferably [facility] Subjective Constitutional: Reports: no symptoms Cardiovascular: Reports: no symptoms Respiratory: Reports: no symptoms Allergies: Coded Allergies: PENICILLINS (Verified Allergy, Unknown, 02/10/17) Objective Last 24 Hour Vital Signs Date Time Temp Pulse Resp B/P (MAP) Pulse Ox O2 Delivery O2 Flow Rate FiO2 02/06/18 08:43 70 158/84 02/06/18 08:42 70 158/84 02/06/18 08:07 98.0 70 20 158/84 99 98.0 02/06/18 04:00 97.7 68 19 147/87 100 Room Air 97.7 02/06/18 00:00 98.4 86 20 134/76 97 Room Air 98.4 02/05/18 20:00 97 Room Air 02/05/18 20:00 98.2 69 18 142/85 97 Room Air 98.2 02/05/18 18:17 98.1 02/05/18 17:47 98.1 02/05/18 16:22 150/85 02/05/18 15:54 98.1 70 20 150/85 99 98.1 02/05/18 11:56 97.7 65 20 129/79 100 97.7 Intake and Output 02/05/18 02/06/18 19:00 07:00 Intake Total 1450 ml Output Total 1350 ml Balance 100 ml Intake Oral 1250 ml IV Total 200 ml Output Urine Total 1350 ml # Voids 2 3 Laboratory Tests 02/06/18 05:00: White Blood Count 5.3, Red Blood Count 3.06L, Hemoglobin 10.8L, Hematocrit 29.9L , Mean Corpuscular Volume 98, Mean Corpuscular Hemoglobin 35.2H, Mean Corpuscular Hemoglobin Concent 36.0, Red Cell Distribution Width 12.1, Platelet Count 91L, Mean Platelet Volume 11.6H, Neutrophils (%) (Auto) , Lymphocytes (%) (Auto) , Monocytes (%) (Auto) , Eosinophils (%) (Auto) , Basophils (%) (Auto) , Differential Total Cells Counted 100, Neutrophils % (Manual) 27L, Lymphocytes % (Manual) 63H, Monocytes % (Manual) 6, Eosinophils % (Manual) 4H, Basophils % ( Manual) 0, Band Neutrophils 0, Reactive Lymphocytes Occasional, Platelet Estimate DecreasedL, Platelet Morphology Normal, Hypochromasia , Anisocytosis 1+ , Sodium Level 138, Potassium Level 3.9, Chloride Level 107, Carbon Dioxide Level 27, Anion Gap 4L, Blood Urea Nitrogen 26H, Creatinine 1.3, Estimat Glomerular Filtration Rate > 60, Glucose Level 111H, Calcium Level 8.4L, Total Bilirubin 0.4, Aspartate Amino Transf (AST/SGOT) 174H, Alanine Aminotransferase (ALT/SGPT) 96H, Alkaline Phosphatase 127H, Ammonia 92H, Total Protein 7.8, Albumin 2.2L, Globulin 5.6, Albumin/Globulin Ratio 0.4L Height (Feet): 6 Height (Inches): 3.00 Weight (Pounds): 191 General Appearance: no apparent distress EENT: PERRL/EOMI Neck: supple Cardiovascular: normal rate Respiratory/Chest: lungs clear Abdomen: soft Extremities: other - subtle lack of fine motor coordination and imbalance 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
--- NOTE | 2018-02-06 15:32 | Neurology Progress Note ---
Interim History Interim History Interim History Mr. Grewal feels well. The mind is clear. He has not noticed any new neurologic symptoms. He denies any weakness on one side or the other, numbness on one side or the other, problems with speech, problems with language, or other neurologic symptoms. He has not walked today, however when he walked yesterday he was steadier on his feet. Plans are for transfer to a SNF in the near future. Review of Systems Neuro Review of Systems Benign. Objective Physical Exam Last Vital Signs Date Time Temp Pulse Resp B/P (MAP) Pulse Ox O2 Delivery O2 Flow Rate FiO2 02/06/18 11:52 99.0 67 20 137/85 100 99.0 02/06/18 04:00 Room Air Laboratory Tests Test 02/06/18 05:00 White Blood Count 5.3 K/UL (4.8-10.8) Red Blood Count 3.06 M/UL (4.70-6.10) L Hemoglobin 10.8 G/DL (14.2-18.0) L Hematocrit 29.9 % (42.0-52.0) L Mean Corpuscular Volume 98 FL (80-99) Mean Corpuscular Hemoglobin 35.2 PG (27.0-31.0) H Mean Corpuscular Hemoglobin Concent 36.0 G/DL (32.0-36.0) Red Cell Distribution Width 12.1 % (11.6-14.8) Platelet Count 91 K/UL (150-450) L Mean Platelet Volume 11.6 FL (6.5-10.1) H Neutrophils (%) (Auto) % (45.0-75.0) Lymphocytes (%) (Auto) % (20.0-45.0) Monocytes (%) (Auto) % (1.0-10.0) Eosinophils (%) (Auto) % (0.0-3.0) Basophils (%) (Auto) % (0.0-2.0) Differential Total Cells Counted 100 Neutrophils % (Manual) 27 % (45-75) L Lymphocytes % (Manual) 63 % (20-45) H Monocytes % (Manual) 6 % (1-10) Eosinophils % (Manual) 4 % (0-3) H Basophils % (Manual) 0 % (0-2) Band Neutrophils 0 % (0-8) Reactive Lymphocytes Occasional Platelet Estimate Decreased L Platelet Morphology Normal Hypochromasia Anisocytosis 1+ Sodium Level 138 MMOL/L (136-145) Potassium Level 3.9 MMOL/L (3.5-5.1) Chloride Level 107 MMOL/L (98-107) Carbon Dioxide Level 27 MMOL/L (21-32) Anion Gap 4 mmol/L (5-15) L Blood Urea Nitrogen 26 mg/dL (7-18) H Creatinine 1.3 MG/DL (0.55-1.30) Estimat Glomerular Filtration Rate > 60 mL/min (>60) Glucose Level 111 MG/DL (74-106) H Calcium Level 8.4 MG/DL (8.5-10.1) L Total Bilirubin 0.4 MG/DL (0.2-1.0) Aspartate Amino Transf (AST/SGOT) 174 U/L (15-37) H Alanine Aminotransferase (ALT/SGPT) 96 U/L (12-78) H Alkaline Phosphatase 127 U/L (46-116) H Ammonia 92 umol/L (11-32) H Total Protein 7.8 G/DL (6.4-8.2) Albumin 2.2 G/DL (3.4-5.0) L Globulin 5.6 g/dL Albumin/Globulin Ratio 0.4 (1.0-2.7) L Neurologic Exam Objective PHYSICAL EXAMINATION: GENERAL: He is a well-developed, well-nourished, pleasant black gentleman, lying bed, in no acute distress. HEAD: Normocephalic and atraumatic. NECK: No neck rigidity was observed. EENT: Examination benign. NEUROLOGIC EXAMINATION: MENTAL STATUS EXAMINATION: He was awake and alert. He was oriented to person, place and time except for the exact date. He was able to recall 3/3 words immediately, but could only remember 2/3 words in 1 minute and 3 minutes. He was able to remember presidents, Trump and Obama, but could not remember presidents prior to that. His mathematical skills were impaired. His visuospatial function was also impaired. SPEECH: He had a mild dysarthria, but it should be noted that he was edentulous. LANGUAGE: He had anomia for low and mid frequency words. CRANIAL NERVE EXAMINATION: II: The visual hayes were intact to confrontation testing. III, IV & : The external ocular movements were full and the pupils 3 mm in diameter, equal, round, regular, and reactive to light. V: He had normal facial sensations, and the temporales, masseters, and pterygoids functioned normally. VII: He had left seventh central facial paresis. VIII: He was able to hear well bilaterally and had no nystagmus. IX: The palate moved symmetrically on phonation. X: He had no hoarseness of voice. XI: The sternocleidomastoids and trapezii functioned normally. XII: The tongue was in the midline without any fasciculations or atrophy. MOTOR SYSTEM: The tone was minimally increased in both lower extremities with a mild degree of spasticity. Examination of muscle mass revealed generalized muscle wasting. Examination of power revealed G 5/5 power except for G 5-/5 power in the right iliopsoas, G 4/5 power in the left iliopsoas, G 4++/5 power in the ankle dorsiflexors and toe extensors bilaterally. SENSORY EXAMINATION: He had intact sensations to pinprick and light touch, but complained of a subjective alteration over his entire left body. REFLEXES: 1+ on the right and 1++ on the left at the biceps, triceps, brachioradialis, and knees, 0 at both ankles. The plantar responses were flexor bilaterally. STANCE: He stood up with support on the right side. GAIT: He walked with support on the right side with a left greater than right paraparetic gait - he however was steadier. ABNORMAL MOVEMENTS: Asterixis: G 0/4 in both UEs. Impression/Recommendations Diagnostic Impression 1. Mr. Cy Grewal is a 62-year-old, right-handed, black gentleman, with a past history of hypertension, diabetes mellitus, dyslipidemia, hepatitis, strokes, headaches, and a psychiatric illness, who was brought in for inappropriate behavior, and has since been admitted for renal failure, an encephalopathy and a non-ST elevation myocardial infarction. 2. He feels well. The mind is clear. He has not noticed any new neurologic symptoms. He denies any weakness on one side or the other, numbness on one side or the other, problems with speech, problems with language, or other neurologic symptoms. He has not walked today, however when he walked yesterday he was steadier on his feet. Plans are for transfer to a SNF in the near future. 3. On neurological examination, at this time, he is awake and alert. He is fully orientated. He does have problems with recent and remote memory, visuospatial function, higher cognitive function, and language. He also has a mild dysarthria, a left seventh central facial paresis, left greater than right paraparesis, with globally diminished reflexes that are slightly brisker on the left than on the right, decreased sensations over his left body, and a left greater than right paraparetic gait which is definitely better. 4. The CT scan of the brain without contrast reveals atrophy and deep white matter disease, consistent with underlying deep white matter cerebrovascular disease. 5. Laboratory data on my initial evaluation revealed that he was anemic with a hemoglobin of 11.0. His chemistry panel revealed that his BUN was elevated to 52 with a creatinine of 2.9. In addition, he also had a hyperammonemia with an ammonia of 74, his total bilirubin was elevated to 1.2 and his AST was elevated at 192. His free T4 was elevated at 1.56. His urinalysis was relatively benign. His toxicology screen is negative. Further laboratory tests revealed that his ammonia has elevated to 155, and his ESR is elevated at 105. 6. The MRI of the brain done on 02/01/18 revealed an acute infarct in the right insula, old lacunar infarcts in the left basal ganglia, midbrain and john. Foci of microhemorrhages in the midbrain and left frontal region with encephalomalacia. 7. The patient's history, neurological examination, CT scan and MRI scan findings, and laboratory data are most compatible with a multifactorial encephalopathy, most probably related to his underlying structural brain disease with super-added elevation in his BUN and creatinine and hyperammonemia. 8. The left greater than right paresis, is related to a combination of old and new cerebrovascular disease but is improving. Recommendations 1. Continue present management. 2. Continue aspirin 81 mg daily. 3. The patient's blood pressure, blood sugar, and lipids should be controlled. 4. The patient was told to stop smoking immediately again. 5. Physical, occupational, and speech and language therapy. Aric Martinez M.D., M.S.P.H. ARIC MARTINEZ February 06, 2018 15:32
[2018-02-06] MEDS: Nitroglycerin Patch 0.2mg/hr TDERMAL SCH (16:45)
--- NOTE | 2018-02-06 17:12 | Cardiac Electrophysiology PN ---
Assessment/Plan Assessment/Plan 1. Elevated troponin and inferolateral EKG changes. No chest pain or SOB. Continue aspirin, Lipitor, and Coreg. Troponin levels are flat and likely due to renal failure as Cr was 3.5 Ef 60%. Can't follow protocol for stress test. No prior ECG to compare 2. Hypertension. Continue Norvasc and Coreg. Avoid GUANAKITO inhibitors in view of renal failure. 3. Acute renal failure. Creatinine 3.5. Resolved Cr 1.3 4. Hyperlipidemia, on Lipitor. 5. Altered mental status. Follow up neuro and psych.The head CT was negative. Likely due to high ammonia level. 6. Diabetes. 7. Hyperammonemia. Better on lactulose. DODIE RN DC planning in progress Subjective Subjective Alert in NAD. Awaiting placement Objective Last 24 Hour Vital Signs Date Time Temp Pulse Resp B/P (MAP) Pulse Ox O2 Delivery O2 Flow Rate FiO2 02/06/18 16:45 148/85 02/06/18 16:04 98.2 69 20 148/85 100 98.2 02/06/18 11:52 99.0 67 20 137/85 100 99.0 02/06/18 08:43 70 158/84 02/06/18 08:42 70 158/84 02/06/18 08:07 98.0 70 20 158/84 99 98.0 02/06/18 04:00 97.7 68 19 147/87 100 Room Air 97.7 02/06/18 00:00 98.4 86 20 134/76 97 Room Air 98.4 02/05/18 20:00 97 Room Air 02/05/18 20:00 98.2 69 18 142/85 97 Room Air 98.2 02/05/18 18:17 98.1 02/05/18 17:47 98.1 Intake and Output 02/05/18 02/06/18 19:00 07:00 Intake Total 1450 ml Output Total 1350 ml Balance 100 ml Intake Oral 1250 ml IV Total 200 ml Output Urine Total 1350 ml # Voids 2 3 Laboratory Tests Test 02/06/18 05:00 White Blood Count 5.3 K/UL (4.8-10.8) Red Blood Count 3.06 M/UL (4.70-6.10) L Hemoglobin 10.8 G/DL (14.2-18.0) L Hematocrit 29.9 % (42.0-52.0) L Mean Corpuscular Volume 98 FL (80-99) Mean Corpuscular Hemoglobin 35.2 PG (27.0-31.0) H Mean Corpuscular Hemoglobin Concent 36.0 G/DL (32.0-36.0) Red Cell Distribution Width 12.1 % (11.6-14.8) Platelet Count 91 K/UL (150-450) L Mean Platelet Volume 11.6 FL (6.5-10.1) H Neutrophils (%) (Auto) % (45.0-75.0) Lymphocytes (%) (Auto) % (20.0-45.0) Monocytes (%) (Auto) % (1.0-10.0) Eosinophils (%) (Auto) % (0.0-3.0) Basophils (%) (Auto) % (0.0-2.0) Differential Total Cells Counted 100 Neutrophils % (Manual) 27 % (45-75) L Lymphocytes % (Manual) 63 % (20-45) H Monocytes % (Manual) 6 % (1-10) Eosinophils % (Manual) 4 % (0-3) H Basophils % (Manual) 0 % (0-2) Band Neutrophils 0 % (0-8) Reactive Lymphocytes Occasional Platelet Estimate Decreased L Platelet Morphology Normal Hypochromasia Anisocytosis 1+ Sodium Level 138 MMOL/L (136-145) Potassium Level 3.9 MMOL/L (3.5-5.1) Chloride Level 107 MMOL/L (98-107) Carbon Dioxide Level 27 MMOL/L (21-32) Anion Gap 4 mmol/L (5-15) L Blood Urea Nitrogen 26 mg/dL (7-18) H Creatinine 1.3 MG/DL (0.55-1.30) Estimat Glomerular Filtration Rate > 60 mL/min (>60) Glucose Level 111 MG/DL (74-106) H Calcium Level 8.4 MG/DL (8.5-10.1) L Total Bilirubin 0.4 MG/DL (0.2-1.0) Aspartate Amino Transf (AST/SGOT) 174 U/L (15-37) H Alanine Aminotransferase (ALT/SGPT) 96 U/L (12-78) H Alkaline Phosphatase 127 U/L (46-116) H Ammonia 92 umol/L (11-32) H Total Protein 7.8 G/DL (6.4-8.2) Albumin 2.2 G/DL (3.4-5.0) L Globulin 5.6 g/dL Albumin/Globulin Ratio 0.4 (1.0-2.7) L Objective HEAD AND NECK: No JVD. LUNGS: Coarse rhonchi. CARDIOVASCULAR: Regular S1 and S2 with no gallop. ABDOMEN: Soft. EXTREMITIES: No edema. Grover Montenegro MD February 06, 2018 17:12
[2018-02-06] MEDS: Dyna-Hex 2% Top Sol 2oz TOPIC SCH (20:03)
[2018-02-06] MEDS ORDERED: Metoprolol Succinate XL 50mg tab ORAL SCH (21:30)
[2018-02-07] VITALS (7 sets, daily range): BP systolic 146–166; BP diastolic 68–85
[2018-02-07] MEDS: Lactulose 20gm/30ml UDC ORAL SCH ×3 (08:50→17:26)
[2018-02-07] MEDS: Metoprolol 25mg tab ORAL SCH ×2 (08:51→20:35)
[2018-02-07] MEDS: Aspirin Baby 81mg ORAL SCH (08:51)
[2018-02-07] MEDS: Tamsulosin 0.4mg cap ORAL SCH ×2 (08:52→17:25)
--- NOTE | 2018-02-07 10:19 | Neurology Progress Note ---
Interim History Interim History Interim History Mr. Grewal feels very well. The mind is clear. He has not noticed any new neurologic symptoms. He denies any weakness on one side or the other, numbness on one side or the other, problems with speech, problems with language, or other neurologic symptoms. He has not walked for the last 2 days. When he walked a few days ago he was steadier on his feet. Plans are for transfer to a SNF in the near future. Review of Systems Neuro Review of Systems Benign. Objective Physical Exam Last Vital Signs Date Time Temp Pulse Resp B/P (MAP) Pulse Ox O2 Delivery O2 Flow Rate FiO2 02/07/18 08:51 68 151/82 02/07/18 04:00 98.1 18 99 Room Air 98.1 Neurologic Exam Objective PHYSICAL EXAMINATION: GENERAL: He is a well-developed, well-nourished, pleasant black gentleman, sitting up at the edge of his bed, in no acute distress. HEAD: Normocephalic and atraumatic. NECK: No neck rigidity was observed. EENT: Examination benign. NEUROLOGIC EXAMINATION: MENTAL STATUS EXAMINATION: He was awake and alert. He was oriented to person, place and time except for the exact date. He was able to recall 3/3 words immediately, but could only remember 2/3 words in 1 minute and 3 minutes. He was able to remember presidents, Trump and Obama, but could not remember presidents prior to that. His mathematical skills were impaired. His visuospatial function was also impaired. SPEECH: He had a mild dysarthria, but it should be noted that he was edentulous. LANGUAGE: He had anomia for low and mid frequency words. CRANIAL NERVE EXAMINATION: II: The visual hayes were intact to confrontation testing. III, IV & : The external ocular movements were full and the pupils 3 mm in diameter, equal, round, regular, and reactive to light. V: He had normal facial sensations, and the temporales, masseters, and pterygoids functioned normally. VII: He had left seventh central facial paresis. VIII: He was able to hear well bilaterally and had no nystagmus. IX: The palate moved symmetrically on phonation. X: He had no hoarseness of voice. XI: The sternocleidomastoids and trapezii functioned normally. XII: The tongue was in the midline without any fasciculations or atrophy. MOTOR SYSTEM: The tone was minimally increased in both lower extremities with a mild degree of spasticity. Examination of muscle mass revealed generalized muscle wasting. Examination of power revealed G 5/5 power except for G 5-/5 on the right and G 4 ++/5 on the left in the iliopsoas, ankle dorsiflexors and toe extensors. SENSORY EXAMINATION: He had intact sensations to pinprick and light touch, but complained of a subjective alteration over his entire left body. REFLEXES: 1+ on the right and 1++ on the left at the biceps, triceps, brachioradialis, and knees, 0 at both ankles. The plantar responses were flexor bilaterally. STANCE: He stood up with support on the right side. GAIT: He walked with support on the right side with a left greater than right paraparetic gait - he however was steadier. ABNORMAL MOVEMENTS: Asterixis: G 0/4 in both UEs. Impression/Recommendations Diagnostic Impression 1. Mr. Cy Grewal is a 62-year-old, right-handed, black gentleman, with a past history of hypertension, diabetes mellitus, dyslipidemia, hepatitis, strokes, headaches, and a psychiatric illness, who was brought in for inappropriate behavior, and has since been admitted for renal failure, an encephalopathy and a non-ST elevation myocardial infarction. 2. He feels well. The mind is clear. He has not noticed any new neurologic symptoms. He denies any weakness on one side or the other, numbness on one side or the other, problems with speech, problems with language, or other neurologic symptoms. He has not walked today, however when he walked yesterday he was steadier on his feet. Plans are for transfer to a SNF in the near future. 3. On neurological examination, at this time, he is awake and alert. He is fully orientated except for the exact date. He does have problems with recent and remote memory, visuospatial function, higher cognitive function, and language. He also has a mild dysarthria, a left seventh central facial paresis, left greater than right paraparesis, with globally diminished reflexes that are slightly brisker on the left than on the right, decreased sensations over his left body, and a left greater than right paraparetic gait which is definitely better. 4. The CT scan of the brain without contrast reveals atrophy and deep white matter disease, consistent with underlying deep white matter cerebrovascular disease. 5. Laboratory data on my initial evaluation revealed that he was anemic with a hemoglobin of 11.0. His chemistry panel revealed that his BUN was elevated to 52 with a creatinine of 2.9. In addition, he also had a hyperammonemia with an ammonia of 74, his total bilirubin was elevated to 1.2 and his AST was elevated at 192. His free T4 was elevated at 1.56. His urinalysis was relatively benign. His toxicology screen is negative. Further laboratory tests revealed that his ammonia has elevated to 155, and his ESR is elevated at 105. 6. The MRI of the brain done on 02/01/18 revealed an acute infarct in the right insula, old lacunar infarcts in the left basal ganglia, midbrain and john. Foci of microhemorrhages in the midbrain and left frontal region with encephalomalacia. 7. The patient's history, neurological examination, CT scan and MRI scan findings, and laboratory data are most compatible with a multifactorial encephalopathy, most probably related to his underlying structural brain disease with super-added elevation in his BUN and creatinine and hyperammonemia. 8. The left greater than right paresis, is related to a combination of old and new cerebrovascular disease but is improving. Recommendations 1. Continue present management. 2. Continue aspirin 81 mg daily. 3. The patient's blood pressure, blood sugar, and lipids should be controlled. 4. The patient was told to stop smoking immediately again. 5. Physical, occupational, and speech and language therapy. Aric Martinez M.D., M.S.[facility]. ARIC MARTINEZ February 07, 2018 10:19
--- NOTE | 2018-02-07 11:30 | Nephrology Progress Note ---
Assessment/Plan Problem List: (1) Acute renal failure Assessment: Cr lowering (2) Anemia (3) Hyperammonemia Assessment Acute Renal failure ? On Chronic Cr down now WNL Anemia Others: 1. 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 2. 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 3. h/o Hepatitis C. 4. h/o Peripheral neuropathy. Plan no labs today DC IV K supplement Mag supplement as needed Lactulose- Flomax Monitor renal parameters per orders Subjective ROS Limited/Unobtainable: No Objective Objective Last 24 Hour Vital Signs Date Time Temp Pulse Resp B/P (MAP) Pulse Ox O2 Delivery O2 Flow Rate FiO2 02/07/18 09:00 98.2 68 18 151/82 98 Room Air 98.2 02/07/18 08:51 68 151/82 02/07/18 04:00 98.1 70 18 153/85 99 Room Air 98.1 02/07/18 00:00 98.0 73 17 157/68 98 Room Air 98.0 02/06/18 22:10 185/80 02/06/18 21:11 97.9 80 18 185/80 100 Room Air 97.9 02/06/18 21:10 81 174/87 02/06/18 20:01 97.9 79 21 165/99 99 Room Air 97.9 02/06/18 16:45 148/85 02/06/18 16:04 98.2 69 20 148/85 100 98.2 02/06/18 11:52 99.0 67 20 137/85 100 99.0 Intake and Output 02/06/18 02/07/18 19:00 07:00 Intake Total 1080 ml Output Total 800 ml Balance 280 ml Intake Oral 1080 ml Output Urine Total 800 ml # Voids 2 2 # Bowel Movements 1 Height (Feet): 6 Height (Inches): 3.00 Weight (Pounds): 191 General Appearance: no apparent distress Objective no change MART MOREIRA February 07, 2018 11:30
--- NOTE | 2018-02-07 14:24 | Cardiac Electrophysiology PN ---
Assessment/Plan Assessment/Plan 1. Elevated troponin and inferolateral EKG changes. No chest pain or SOB. Continue aspirin, Lipitor, and Coreg. Troponin levels are flat and likely due to renal failure as Cr was 3.5 Ef 60%. Schedule for nuclear stress test in am. 2. Hypertension. Continue Norvasc and Coreg. Avoid GUANAKITO inhibitors in view of renal failure. 3. Acute renal failure. Creatinine 3.5. Resolved Cr 1.3 4. Hyperlipidemia, on Lipitor. 5. Altered mental status. Follow up neuro and psych.The head CT was negative. Likely due to high ammonia level. 6. Diabetes. 7. Hyperammonemia. DW RN Subjective Subjective Awaiting placement. NAD Objective Last 24 Hour Vital Signs Date Time Temp Pulse Resp B/P (MAP) Pulse Ox O2 Delivery O2 Flow Rate FiO2 02/07/18 12:00 97.9 61 18 146/83 99 Room Air 97.9 02/07/18 09:00 98.2 68 18 151/82 98 Room Air 98.2 02/07/18 08:51 68 151/82 02/07/18 04:00 98.1 70 18 153/85 99 Room Air 98.1 02/07/18 00:00 98.0 73 17 157/68 98 Room Air 98.0 02/06/18 22:10 185/80 02/06/18 21:11 97.9 80 18 185/80 100 Room Air 97.9 02/06/18 21:10 81 174/87 02/06/18 20:01 97.9 79 21 165/99 99 Room Air 97.9 02/06/18 16:45 148/85 02/06/18 16:04 98.2 69 20 148/85 100 98.2 Intake and Output 02/06/18 02/07/18 19:00 07:00 Intake Total 1080 ml Output Total 800 ml Balance 280 ml Intake Oral 1080 ml Output Urine Total 800 ml # Voids 2 2 # Bowel Movements 1 Laboratory Tests Test 02/07/18 12:40 C-Reactive Protein, Quantitative < 4.0 mg/dL (0.00-0.90) H Objective HEAD AND NECK: No JVD. LUNGS: Coarse rhonchi. CARDIOVASCULAR: Regular S1 and S2 with no gallop. ABDOMEN: Soft. EXTREMITIES: No edema. Grover Montenegro MD February 07, 2018 14:24
[2018-02-07] MEDS ORDERED: Lexiscan 0.4mg/5ml syringe IV PRN (14:30)
[2018-02-07] MEDS: Nitroglycerin Patch 0.2mg/hr TDERMAL SCH (16:07)
[2018-02-07] MEDS: Dyna-Hex 2% Top Sol 2oz TOPIC SCH (20:35)
[2018-02-07] MEDS ORDERED: Metoprolol 25mg tab ORAL SCH (22:00)
[2018-02-08] VITALS (7 sets, daily range): BP systolic 138–173; BP diastolic 74–94
[2018-02-08 07:30] LABS: HEMOGLOBIN 11.7 G/DL (14.2-18.0); MEAN CORPUSCULAR VOLUME 98 FL (80-99); PLATELET COUNT 106 K/UL (150-450); RED BLOOD COUNT 3.38 M/UL (4.70-6.10); RED CELL DISTRIBUTION WIDTH 12.3 % (11.6-14.8); WHITE BLOOD COUNT 5.7 K/UL (4.8-10.8)
[2018-02-08 07:55] LABS: ALANINE AMINOTRANSFERASE 126 U/L (12-78); ALBUMIN 2.6 G/DL (3.4-5.0); ALBUMIN/GLOBULIN RATIO 0.4 (1.0-2.7); ALKALINE PHOSPHATASE 128 U/L (46-116); ANION GAP 8 mmol/L (5-15); ASPARTATE AMINO TRANSFERASE 185 U/L (15-37); BILIRUBIN,TOTAL 0.5 MG/DL (0.2-1.0); BLOOD UREA NITROGEN 23 mg/dL (7-18); CALCIUM 9.1 MG/DL (8.5-10.1); CARBON DIOXIDE 24 MMOL/L (21-32); CHLORIDE 108 MMOL/L (98-107); CREATININE 1.3 MG/DL (0.55-1.30); GAMMA GLUTAMYL TRANSPEPTIDASE 104 U/L (5-85); PHOSPHORUS 3.8 MG/DL (2.5-4.9); POTASSIUM 4.2 MMOL/L (3.5-5.1); SODIUM 140 MMOL/L (136-145)
[2018-02-08] MEDS: Metoprolol 25mg tab ORAL SCH ×2 (08:06→21:14)
[2018-02-08] MEDS: Lactulose 20gm/30ml UDC ORAL SCH ×2 (08:06→21:14)
[2018-02-08] MEDS: Tamsulosin 0.4mg cap ORAL SCH ×2 (08:07→17:05)
[2018-02-08] MEDS: Aspirin Baby 81mg ORAL SCH (08:08)
--- NOTE | 2018-02-08 10:11 | Diagnostic Imaging Report ---
APPROVED REPORT CPT Code: 05882 Vascular Symptoms CVA/TIA: Doppler Spectral Velocity Analysis RightLeft RIGHT SIDE: CCA - Imaging reveals no significant plaque in the common carotid artery. ICA arteries. The Doppler signal indicates the degree of stenosis is minimal (30%) in the internal carotid, and in the external carotid arteries. VERTEBRAL - The vertebral artery is patent, without evidence of stenosis or steal. LEFT SIDE: CCA - Imaging reveals no significant plaque within the extracranial carotid arteries. The Doppler spectral flow analysis is within normal limits throughout the extracranial carotid arteries. VERTEBRAL - The vertebral artery is patent, without evidence of stenosis or steal.
--- NOTE | 2018-02-08 10:21 | General Progress Note ---
Assessment/Plan Status: stable Assessment/Plan 1. Acute Right insular ischemic CVA 2.Acute Anemia. 3. Liver cirrhosis. 4. Abnormal Troponin 4. Acute on chronic renal failure. 5. Hyperlipidemia. 6. Hepatitis C 6. Gastrointestinal and deep vein thrombosis prophylaxes. Plan: current management SW for placement Schedule for Stress test Subjective ROS Limited/Unobtainable: No Constitutional: Reports: no symptoms HEENT: Reports: no symptoms Cardiovascular: Reports: no symptoms Allergies: Coded Allergies: PENICILLINS (Verified Allergy, Unknown, 02/10/17) Objective Last 24 Hour Vital Signs Date Time Temp Pulse Resp B/P (MAP) Pulse Ox O2 Delivery O2 Flow Rate FiO2 02/08/18 10:02 173/85 02/08/18 08:06 76 173/95 02/08/18 08:00 97.9 56 18 173/94 100 Room Air 97.9 02/08/18 04:00 96.4 57 19 159/89 100 96.4 02/07/18 23:50 97.6 64 18 154/81 97 97.6 02/07/18 23:12 97.6 02/07/18 22:13 98.2 02/07/18 20:35 72 166/83 02/07/18 19:51 98.2 72 18 166/83 96 98.2 02/07/18 16:07 155/83 02/07/18 16:00 97.4 61 18 155/83 99 Room Air 97.4 02/07/18 12:00 97.9 61 18 146/83 99 Room Air 97.9 Intake and Output 02/07/18 02/08/18 19:00 07:00 Intake Total 720 ml Output Total 1800 ml 1200 ml Balance -1080 ml -1200 ml Intake Oral 720 ml Output Urine Total 1800 ml 1200 ml # Bowel Movements 1 Laboratory Tests 02/07/18 12:40: C-Reactive Protein, Quantitative < 4.0H 02/08/18 05:20: White Blood Count 5.7, Red Blood Count 3.38L, Hemoglobin 11.7L, Hematocrit 33.0L , Mean Corpuscular Volume 98, Mean Corpuscular Hemoglobin 34.8H, Mean Corpuscular Hemoglobin Concent 35.5, Red Cell Distribution Width 12.3, Platelet Count 106L, Mean Platelet Volume 8.0, Neutrophils (%) (Auto) , Lymphocytes (%) ( Auto) , Monocytes (%) (Auto) , Eosinophils (%) (Auto) , Basophils (%) (Auto) , Differential Total Cells Counted 100, Neutrophils % (Manual) 32L, Lymphocytes % (Manual) 56H, Monocytes % (Manual) 8, Eosinophils % (Manual) 4H, Basophils % ( Manual) 0, Band Neutrophils 0, Platelet Estimate DecreasedL, Platelet Morphology Normal, Macrocytosis 1+, Sodium Level 140, Potassium Level 4.2, Chloride Level 108H, Carbon Dioxide Level 24, Anion Gap 8, Blood Urea Nitrogen 23H, Creatinine 1.3, Estimat Glomerular Filtration Rate > 60, Glucose Level 105 , Calcium Level 9.1, Phosphorus Level 3.8, Magnesium Level 1.8, Total Bilirubin 0.5, Gamma Glutamyl Transpeptidase 104H, Aspartate Amino Transf (AST/SGOT) 185H , Alanine Aminotransferase (ALT/SGPT) 126H, Alkaline Phosphatase 128H, Troponin I 0.012, Pro-B-Type Natriuretic Peptide 155H, Total Protein 8.7H, Albumin 2.6L, Globulin 6.1, Albumin/Globulin Ratio 0.4L Height (Feet): 6 Height (Inches): 3.00 Weight (Pounds): 191 General Appearance: WD/WN EENT: PERRL/EOMI Neck: supple Cardiovascular: normal rate Respiratory/Chest: lungs clear Abdomen: soft Extremities: non-tender 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
--- NOTE | 2018-02-08 10:57 | GI Progress Note ---
Assessment/Plan Problems: (1) Hepatitis C ICD Codes: B19.20 - Unspecified viral hepatitis C without hepatic coma SNOMED: 81594034 (2) Liver cirrhosis ICD Codes: K74.60 - Unspecified cirrhosis of liver SNOMED: 10230125 (3) Hepatic encephalopathy ICD Codes: K72.90 - Hepatic failure, unspecified without coma SNOMED: 81606034 (4) Drug abuse ICD Codes: F19.10 - Other psychoactive substance abuse, uncomplicated SNOMED: 88564679 (5) Anemia ICD Codes: D64.9 - Anemia, unspecified SNOMED: 257932169 (6) Hyperammonemia ICD Codes: E72.20 - Disorder of urea cycle metabolism, unspecified SNOMED: 4763999 (7) Homelessness ICD Codes: Z59.0 - Homelessness SNOMED: 37860058 Status: stable Status Narrative Discussed with Dr. Bourne. Assessment/Plan macrocytic hyperchromic anemia >> B12/folate levels normal abdominal U/S reviewed >> Suspected chronic liver disease/cirrhosis. OB stool negative Hepatitis C >> will require outpatient work up and treatment elevated AST >> patient on statin, current use ETOH >> trend elevated ammonia levels >> lactulose + xifaxan ppi fu labs ETOH cessation education given to patient outpatient GI procedures to evaluate for varices, will need cardiac clearance okay for DC per GI standpoint Subjective Subjective feels better more alert Objective Last 24 Hour Vital Signs Date Time Temp Pulse Resp B/P (MAP) Pulse Ox O2 Delivery O2 Flow Rate FiO2 02/08/18 10:02 173/85 02/08/18 08:06 76 173/95 02/08/18 08:00 97.9 56 18 173/94 100 Room Air 97.9 02/08/18 04:00 96.4 57 19 159/89 100 96.4 02/07/18 23:50 97.6 64 18 154/81 97 97.6 02/07/18 23:12 97.6 02/07/18 22:13 98.2 02/07/18 20:35 72 166/83 02/07/18 19:51 98.2 72 18 166/83 96 98.2 02/07/18 16:07 155/83 02/07/18 16:00 97.4 61 18 155/83 99 Room Air 97.4 02/07/18 12:00 97.9 61 18 146/83 99 Room Air 97.9 Intake and Output 02/07/18 02/08/18 19:00 07:00 Intake Total 720 ml Output Total 1800 ml 1200 ml Balance -1080 ml -1200 ml Intake Oral 720 ml Output Urine Total 1800 ml 1200 ml # Bowel Movements 1 Laboratory Tests Test 02/07/18 12:40 02/08/18 05:20 C-Reactive Protein, Quantitative < 4.0 mg/dL (0.00-0.90) H White Blood Count 5.7 K/UL (4.8-10.8) Red Blood Count 3.38 M/UL (4.70-6.10) L Hemoglobin 11.7 G/DL (14.2-18.0) L Hematocrit 33.0 % (42.0-52.0) L Mean Corpuscular Volume 98 FL (80-99) Mean Corpuscular Hemoglobin 34.8 PG (27.0-31.0) H Mean Corpuscular Hemoglobin Concent 35.5 G/DL (32.0-36.0) Red Cell Distribution Width 12.3 % (11.6-14.8) Platelet Count 106 K/UL (150-450) L Mean Platelet Volume 8.0 FL (6.5-10.1) Neutrophils (%) (Auto) % (45.0-75.0) Lymphocytes (%) (Auto) % (20.0-45.0) Monocytes (%) (Auto) % (1.0-10.0) Eosinophils (%) (Auto) % (0.0-3.0) Basophils (%) (Auto) % (0.0-2.0) Differential Total Cells Counted 100 Neutrophils % (Manual) 32 % (45-75) L Lymphocytes % (Manual) 56 % (20-45) H Monocytes % (Manual) 8 % (1-10) Eosinophils % (Manual) 4 % (0-3) H Basophils % (Manual) 0 % (0-2) Band Neutrophils 0 % (0-8) Platelet Estimate Decreased L Platelet Morphology Normal Macrocytosis 1+ Sodium Level 140 MMOL/L (136-145) Potassium Level 4.2 MMOL/L (3.5-5.1) Chloride Level 108 MMOL/L (98-107) H Carbon Dioxide Level 24 MMOL/L (21-32) Anion Gap 8 mmol/L (5-15) Blood Urea Nitrogen 23 mg/dL (7-18) H Creatinine 1.3 MG/DL (0.55-1.30) Estimat Glomerular Filtration Rate > 60 mL/min (>60) Glucose Level 105 MG/DL (74-106) Calcium Level 9.1 MG/DL (8.5-10.1) Phosphorus Level 3.8 MG/DL (2.5-4.9) Magnesium Level 1.8 MG/DL (1.8-2.4) Total Bilirubin 0.5 MG/DL (0.2-1.0) Gamma Glutamyl Transpeptidase 104 U/L (5-85) H Aspartate Amino Transf (AST/SGOT) 185 U/L (15-37) H Alanine Aminotransferase (ALT/SGPT) 126 U/L (12-78) H Alkaline Phosphatase 128 U/L (46-116) H Troponin I 0.012 ng/mL (0.000-0.056) Pro-B-Type Natriuretic Peptide 155 pg/mL (0-125) H Total Protein 8.7 G/DL (6.4-8.2) H Albumin 2.6 G/DL (3.4-5.0) L Globulin 6.1 g/dL Albumin/Globulin Ratio 0.4 (1.0-2.7) L Height (Feet): 6 Height (Inches): 3.00 Weight (Pounds): 191 General Appearance: WD/WN, no apparent distress, alert Cardiovascular: normal rate Respiratory/Chest: normal breath sounds, no respiratory distress Abdominal Exam: normal bowel sounds, non tender, soft Extremities: normal range of motion, non-tender Raquel Sow N.P. February 08, 2018 10:57
--- NOTE | 2018-02-08 15:02 | Nephrology Progress Note ---
Assessment/Plan Problem List: (1) Acute renal failure Assessment: Cr lowering (2) Anemia (3) Hyperammonemia Assessment Acute Renal failure ? On Chronic Cr down now WNL Anemia Others: 1. 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 2. 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 3. h/o Hepatitis C. 4. h/o Peripheral neuropathy. Plan K supplement as needed Mag supplement as needed Lactulose- Flomax Monitor renal parameters per orders Subjective ROS Limited/Unobtainable: No Constitutional: Reports: malaise Objective Objective Last 24 Hour Vital Signs Date Time Temp Pulse Resp B/P (MAP) Pulse Ox O2 Delivery O2 Flow Rate FiO2 02/08/18 11:27 97.7 55 19 146/85 100 Room Air 97.7 02/08/18 10:02 173/85 02/08/18 08:06 76 173/95 02/08/18 08:00 97.9 56 18 173/94 100 Room Air 97.9 02/08/18 04:00 96.4 57 19 159/89 100 96.4 02/07/18 23:50 97.6 64 18 154/81 97 97.6 02/07/18 23:12 97.6 02/07/18 22:13 98.2 02/07/18 20:35 72 166/83 02/07/18 19:51 98.2 72 18 166/83 96 98.2 02/07/18 16:07 155/83 02/07/18 16:00 97.4 61 18 155/83 99 Room Air 97.4 Intake and Output 02/07/18 02/08/18 19:00 07:00 Intake Total 720 ml Output Total 1800 ml 1200 ml Balance -1080 ml -1200 ml Intake Oral 720 ml Output Urine Total 1800 ml 1200 ml # Bowel Movements 1 Laboratory Tests 02/08/18 05:20: White Blood Count 5.7, Red Blood Count 3.38L, Hemoglobin 11.7L, Hematocrit 33.0L , Mean Corpuscular Volume 98, Mean Corpuscular Hemoglobin 34.8H, Mean Corpuscular Hemoglobin Concent 35.5, Red Cell Distribution Width 12.3, Platelet Count 106L, Mean Platelet Volume 8.0, Neutrophils (%) (Auto) , Lymphocytes (%) ( Auto) , Monocytes (%) (Auto) , Eosinophils (%) (Auto) , Basophils (%) (Auto) , Differential Total Cells Counted 100, Neutrophils % (Manual) 32L, Lymphocytes % (Manual) 56H, Monocytes % (Manual) 8, Eosinophils % (Manual) 4H, Basophils % ( Manual) 0, Band Neutrophils 0, Platelet Estimate DecreasedL, Platelet Morphology Normal, Macrocytosis 1+, Sodium Level 140, Potassium Level 4.2, Chloride Level 108H, Carbon Dioxide Level 24, Anion Gap 8, Blood Urea Nitrogen 23H, Creatinine 1.3, Estimat Glomerular Filtration Rate > 60, Glucose Level 105 , Calcium Level 9.1, Phosphorus Level 3.8, Magnesium Level 1.8, Total Bilirubin 0.5, Gamma Glutamyl Transpeptidase 104H, Aspartate Amino Transf (AST/SGOT) 185H , Alanine Aminotransferase (ALT/SGPT) 126H, Alkaline Phosphatase 128H, Troponin I 0.012, Pro-B-Type Natriuretic Peptide 155H, Total Protein 8.7H, Albumin 2.6L, Globulin 6.1, Albumin/Globulin Ratio 0.4L Height (Feet): 6 Height (Inches): 3.00 Weight (Pounds): 191 General Appearance: no apparent distress Objective no change MART MOREIRA February 08, 2018 15:02
--- NOTE | 2018-02-08 16:21 | Neurology Progress Note ---
Interim History Interim History Interim History Mr. Grewal feels very well. He just got back from his cardiac stress test. The mind is clear. He has not noticed any new neurologic symptoms. He denies any weakness on one side or the other, numbness on one side or the other, problems with speech, problems with language, or other neurologic symptoms. He did some walking today. He was steadier on his feet. Plans are for transfer to a SNF in the near future. Review of Systems Neuro Review of Systems Benign. Objective Physical Exam Last Vital Signs Date Time Temp Pulse Resp B/P (MAP) Pulse Ox O2 Delivery O2 Flow Rate FiO2 02/08/18 15:50 97.7 59 18 143/80 100 97.7 02/08/18 15:37 Room Air Laboratory Tests Test 02/08/18 05:20 White Blood Count 5.7 K/UL (4.8-10.8) Red Blood Count 3.38 M/UL (4.70-6.10) L Hemoglobin 11.7 G/DL (14.2-18.0) L Hematocrit 33.0 % (42.0-52.0) L Mean Corpuscular Volume 98 FL (80-99) Mean Corpuscular Hemoglobin 34.8 PG (27.0-31.0) H Mean Corpuscular Hemoglobin Concent 35.5 G/DL (32.0-36.0) Red Cell Distribution Width 12.3 % (11.6-14.8) Platelet Count 106 K/UL (150-450) L Mean Platelet Volume 8.0 FL (6.5-10.1) Neutrophils (%) (Auto) % (45.0-75.0) Lymphocytes (%) (Auto) % (20.0-45.0) Monocytes (%) (Auto) % (1.0-10.0) Eosinophils (%) (Auto) % (0.0-3.0) Basophils (%) (Auto) % (0.0-2.0) Differential Total Cells Counted 100 Neutrophils % (Manual) 32 % (45-75) L Lymphocytes % (Manual) 56 % (20-45) H Monocytes % (Manual) 8 % (1-10) Eosinophils % (Manual) 4 % (0-3) H Basophils % (Manual) 0 % (0-2) Band Neutrophils 0 % (0-8) Platelet Estimate Decreased L Platelet Morphology Normal Macrocytosis 1+ Sodium Level 140 MMOL/L (136-145) Potassium Level 4.2 MMOL/L (3.5-5.1) Chloride Level 108 MMOL/L (98-107) H Carbon Dioxide Level 24 MMOL/L (21-32) Anion Gap 8 mmol/L (5-15) Blood Urea Nitrogen 23 mg/dL (7-18) H Creatinine 1.3 MG/DL (0.55-1.30) Estimat Glomerular Filtration Rate > 60 mL/min (>60) Glucose Level 105 MG/DL (74-106) Calcium Level 9.1 MG/DL (8.5-10.1) Phosphorus Level 3.8 MG/DL (2.5-4.9) Magnesium Level 1.8 MG/DL (1.8-2.4) Total Bilirubin 0.5 MG/DL (0.2-1.0) Gamma Glutamyl Transpeptidase 104 U/L (5-85) H Aspartate Amino Transf (AST/SGOT) 185 U/L (15-37) H Alanine Aminotransferase (ALT/SGPT) 126 U/L (12-78) H Alkaline Phosphatase 128 U/L (46-116) H Troponin I 0.012 ng/mL (0.000-0.056) Pro-B-Type Natriuretic Peptide 155 pg/mL (0-125) H Total Protein 8.7 G/DL (6.4-8.2) H Albumin 2.6 G/DL (3.4-5.0) L Globulin 6.1 g/dL Albumin/Globulin Ratio 0.4 (1.0-2.7) L Neurologic Exam Objective PHYSICAL EXAMINATION: GENERAL: He is a well-developed, well-nourished, pleasant black gentleman, sitting up at the edge of his bed, in no acute distress. HEAD: Normocephalic and atraumatic. NECK: No neck rigidity was observed. EENT: Examination benign. NEUROLOGIC EXAMINATION: MENTAL STATUS EXAMINATION: He was awake and alert. He was oriented to person, place and time except for the exact date. He was able to recall 3/3 words immediately, but could only remember 2/3 words in 1 minute and 3 minutes. He was able to remember presidents, Trump and Obama, but could not remember presidents prior to that. His mathematical skills were impaired. His visuospatial function was also impaired. SPEECH: He had a mild dysarthria, but it should be noted that he was edentulous. LANGUAGE: He had anomia for low and mid frequency words. CRANIAL NERVE EXAMINATION: II: The visual hayes were intact to confrontation testing. III, IV & : The external ocular movements were full and the pupils 3 mm in diameter, equal, round, regular, and reactive to light. V: He had normal facial sensations, and the temporales, masseters, and pterygoids functioned normally. VII: He had left seventh central facial paresis. VIII: He was able to hear well bilaterally and had no nystagmus. IX: The palate moved symmetrically on phonation. X: He had no hoarseness of voice. XI: The sternocleidomastoids and trapezii functioned normally. XII: The tongue was in the midline without any fasciculations or atrophy. MOTOR SYSTEM: The tone was minimally increased in both lower extremities with a mild degree of spasticity. Examination of muscle mass revealed generalized muscle wasting. Examination of power revealed G 5/5 power except for G 5-/5 on the right and G 4 ++/5 on the left in the iliopsoas, ankle dorsiflexors and toe extensors. SENSORY EXAMINATION: He had intact sensations to pinprick and light touch, but complained of a subjective alteration over his entire left body. REFLEXES: 1+ on the right and 1++ on the left at the biceps, triceps, brachioradialis, and knees, 0 at both ankles. The plantar responses were flexor bilaterally. STANCE: He stood up with support on the right side. GAIT: He walked with support on the right side with a left greater than right paraparetic gait - he however was steadier. ABNORMAL MOVEMENTS: Asterixis: G 0/4 in both UEs. Impression/Recommendations Diagnostic Impression 1. Mr. Cy Grewal is a 62-year-old, right-handed, black gentleman, with a past history of hypertension, diabetes mellitus, dyslipidemia, hepatitis, strokes, headaches, and a psychiatric illness, who was brought in for inappropriate behavior, and has since been admitted for renal failure, an encephalopathy and a non-ST elevation myocardial infarction. 2. He feels well. The mind is clear. He has not noticed any new neurologic symptoms. He denies any weakness on one side or the other, numbness on one side or the other, problems with speech, problems with language, or other neurologic symptoms. He walked today and was steadier on his feet. Plans are for transfer to a SNF in the near future. 3. On neurological examination, at this time, he is awake and alert. He is fully orientated except for the exact date. He does have problems with recent and remote memory, visuospatial function, higher cognitive function, and language. He also has a mild dysarthria, a left seventh central facial paresis, left greater than right paraparesis, with globally diminished reflexes that are slightly brisker on the left than on the right, decreased sensations over his left body, and a left greater than right paraparetic gait which is definitely better. 4. The CT scan of the brain without contrast reveals atrophy and deep white matter disease, consistent with underlying deep white matter cerebrovascular disease. 5. Laboratory data on my initial evaluation revealed that he was anemic with a hemoglobin of 11.0. His chemistry panel revealed that his BUN was elevated to 52 with a creatinine of 2.9. In addition, he also had a hyperammonemia with an ammonia of 74, his total bilirubin was elevated to 1.2 and his AST was elevated at 192. His free T4 was elevated at 1.56. His urinalysis was relatively benign. His toxicology screen is negative. Further laboratory tests revealed that his ammonia has elevated to 155, and his ESR is elevated at 105. 6. The MRI of the brain done on 02/01/18 revealed an acute infarct in the right insula, old lacunar infarcts in the left basal ganglia, midbrain and john. Foci of microhemorrhages in the midbrain and left frontal region with encephalomalacia. 7. The patient's history, neurological examination, CT scan and MRI scan findings, and laboratory data are most compatible with a multifactorial encephalopathy, most probably related to his underlying structural brain disease with super-added elevation in his BUN and creatinine and hyperammonemia. 8. The left greater than right paresis, is related to a combination of old and new cerebrovascular disease but is improving. Recommendations 1. Continue present management. 2. Continue aspirin 81 mg daily. 3. The patient's blood pressure, blood sugar, and lipids should be controlled. 4. The patient was told to stop smoking immediately again. 5. Physical, occupational, and speech and language therapy. Aric Martinez M.D., M.S.P.Cassi. ARIC MARTINEZ February 08, 2018 16:21
--- NOTE | 2018-02-08 16:54 | Diagnostic Imaging Report ---
Indication: chest pain Technique: The study was conducted under the supervision of a surgical aides teacher. lexiscan (regadenoson) infusion over 10 seconds followed by intravenous administration of 31.1 mCi of technetium 99m Myoview was performed. Three plane SPECT imaging of the heart was then performed. A resting study was performed as part of the one-day protocol with 10.9 mCi of technetium 99m myoview injected intravenously at that time. Three plane SPECT imaging of the heart was obtained. Comparison: None Clinical data: 1. Clinical response: Non ischemic 2. Electrocardiographic response: Non ischemic Findings: The myocardial perfusion scan demonstrates a perfusion defect on the resting portion of the exam and the anterior wall. This perfuses normally on the stress portion of the exam, which is unusual and may be on the basis of artifact on the resting study. Similar findings in the inferior wall with relatively normal perfusion on stress with an apparent defect on the resting sequence. Left ventricular ejection fraction is estimated at 69%. IMPRESSION: Considerable artifact demonstrated on the resting portion of the SPECT examination showing apparent defects in the anterior and inferior bee. These segments perfuse normally on the Lexiscan or stress tomograms, which is a reassuring finding.
--- NOTE | 2018-02-08 17:00 | Cardiac Electrophysiology PN ---
Assessment/Plan Assessment/Plan 1. Elevated troponin and inferolateral EKG changes. No chest pain or SOB. Continue aspirin, Lipitor, and Coreg. Troponin levels are flat and likely due to renal failure as Cr was 3.5 Ef 60%. Nuclear stress test today no clear ischemia 2. Hypertension. Continue Norvasc and Coreg. Avoid GUANAKITO inhibitors in view of renal failure. 3. Acute renal failure. Creatinine 3.5. Resolved Cr 1.3 4. Hyperlipidemia, on Lipitor. 5. Altered mental status. Follow up neuro and psych.The head CT was negative. Likely due to high ammonia level. 6. Diabetes. 7. Hyperammonemia. DODIE RN Subjective Subjective Awaiting placement, comfortable in NAD. Nuclear stress test no clear ischemia Objective Last 24 Hour Vital Signs Date Time Temp Pulse Resp B/P (MAP) Pulse Ox O2 Delivery O2 Flow Rate FiO2 02/08/18 15:50 97.7 59 18 143/80 100 97.7 02/08/18 15:37 97.0 59 19 138/74 99 Room Air 97.0 02/08/18 11:27 97.7 55 19 146/85 100 Room Air 97.7 02/08/18 10:02 173/85 02/08/18 08:06 76 173/95 02/08/18 08:00 97.9 56 18 173/94 100 Room Air 97.9 02/08/18 04:00 96.4 57 19 159/89 100 96.4 02/07/18 23:50 97.6 64 18 154/81 97 97.6 02/07/18 23:12 97.6 02/07/18 22:13 98.2 02/07/18 20:35 72 166/83 02/07/18 19:51 98.2 72 18 166/83 96 98.2 Intake and Output 02/07/18 02/08/18 19:00 07:00 Intake Total 720 ml Output Total 1800 ml 1200 ml Balance -1080 ml -1200 ml Intake Oral 720 ml Output Urine Total 1800 ml 1200 ml # Bowel Movements 1 Laboratory Tests Test 02/08/18 05:20 White Blood Count 5.7 K/UL (4.8-10.8) Red Blood Count 3.38 M/UL (4.70-6.10) L Hemoglobin 11.7 G/DL (14.2-18.0) L Hematocrit 33.0 % (42.0-52.0) L Mean Corpuscular Volume 98 FL (80-99) Mean Corpuscular Hemoglobin 34.8 PG (27.0-31.0) H Mean Corpuscular Hemoglobin Concent 35.5 G/DL (32.0-36.0) Red Cell Distribution Width 12.3 % (11.6-14.8) Platelet Count 106 K/UL (150-450) L Mean Platelet Volume 8.0 FL (6.5-10.1) Neutrophils (%) (Auto) % (45.0-75.0) Lymphocytes (%) (Auto) % (20.0-45.0) Monocytes (%) (Auto) % (1.0-10.0) Eosinophils (%) (Auto) % (0.0-3.0) Basophils (%) (Auto) % (0.0-2.0) Differential Total Cells Counted 100 Neutrophils % (Manual) 32 % (45-75) L Lymphocytes % (Manual) 56 % (20-45) H Monocytes % (Manual) 8 % (1-10) Eosinophils % (Manual) 4 % (0-3) H Basophils % (Manual) 0 % (0-2) Band Neutrophils 0 % (0-8) Platelet Estimate Decreased L Platelet Morphology Normal Macrocytosis 1+ Sodium Level 140 MMOL/L (136-145) Potassium Level 4.2 MMOL/L (3.5-5.1) Chloride Level 108 MMOL/L (98-107) H Carbon Dioxide Level 24 MMOL/L (21-32) Anion Gap 8 mmol/L (5-15) Blood Urea Nitrogen 23 mg/dL (7-18) H Creatinine 1.3 MG/DL (0.55-1.30) Estimat Glomerular Filtration Rate > 60 mL/min (>60) Glucose Level 105 MG/DL (74-106) Calcium Level 9.1 MG/DL (8.5-10.1) Phosphorus Level 3.8 MG/DL (2.5-4.9) Magnesium Level 1.8 MG/DL (1.8-2.4) Total Bilirubin 0.5 MG/DL (0.2-1.0) Gamma Glutamyl Transpeptidase 104 U/L (5-85) H Aspartate Amino Transf (AST/SGOT) 185 U/L (15-37) H Alanine Aminotransferase (ALT/SGPT) 126 U/L (12-78) H Alkaline Phosphatase 128 U/L (46-116) H Troponin I 0.012 ng/mL (0.000-0.056) Pro-B-Type Natriuretic Peptide 155 pg/mL (0-125) H Total Protein 8.7 G/DL (6.4-8.2) H Albumin 2.6 G/DL (3.4-5.0) L Globulin 6.1 g/dL Albumin/Globulin Ratio 0.4 (1.0-2.7) L Objective HEAD AND NECK: No JVD. LUNGS: Coarse rhonchi. CARDIOVASCULAR: Regular S1 and S2 with no gallop. ABDOMEN: Soft. EXTREMITIES: No edema. Grover Montenegro MD February 08, 2018 17:00
[2018-02-08] MEDS: Nitroglycerin Patch 0.2mg/hr TDERMAL SCH (17:03)
[2018-02-08] MEDS: Dyna-Hex 2% Top Sol 2oz TOPIC SCH (21:14)
[2018-02-09] VITALS (7 sets, daily range): BP systolic 140–156; BP diastolic 77–94
[2018-02-09 06:22] LABS: HEMATOCRIT 30.4 % (42.0-52.0); HEMOGLOBIN 11.1 G/DL (14.2-18.0); MEAN CORPUSCULAR VOLUME 98 FL (80-99); PLATELET COUNT 88 K/UL (150-450); RED BLOOD COUNT 3.09 M/UL (4.70-6.10); RED CELL DISTRIBUTION WIDTH 12.2 % (11.6-14.8); WHITE BLOOD COUNT 4.7 K/UL (4.8-10.8)
[2018-02-09 06:41] LABS: ALANINE AMINOTRANSFERASE 110 U/L (12-78); ALBUMIN 2.4 G/DL (3.4-5.0); ALBUMIN/GLOBULIN RATIO 0.4 (1.0-2.7); ALKALINE PHOSPHATASE 126 U/L (46-116); ANION GAP 8 mmol/L (5-15); ASPARTATE AMINO TRANSFERASE 155 U/L (15-37); BILIRUBIN,TOTAL 0.4 MG/DL (0.2-1.0); BLOOD UREA NITROGEN 26 mg/dL (7-18); CALCIUM 8.6 MG/DL (8.5-10.1); CARBON DIOXIDE 25 MMOL/L (21-32); CHLORIDE 108 MMOL/L (98-107); CREATININE 1.3 MG/DL (0.55-1.30); POTASSIUM 3.9 MMOL/L (3.5-5.1); SODIUM 141 MMOL/L (136-145)
[2018-02-09 07:19] LABS: AMMONIA 154 umol/L (11-32)
[2018-02-09] MEDS: Metoprolol 25mg tab ORAL SCH ×2 (08:21→20:18)
[2018-02-09] MEDS: Tamsulosin 0.4mg cap ORAL SCH ×2 (08:21→17:30)
[2018-02-09] MEDS: Aspirin Baby 81mg ORAL SCH (08:21)
--- NOTE | 2018-02-09 13:14 | General Progress Note ---
Assessment/Plan Status: stable Assessment/Plan 1. Acute Right insular ischemic CVA 2.Acute Anemia. 3. Liver cirrhosis. 4. Abnormal Troponin 4. Acute on chronic renal failure. 5. Hyperlipidemia. 6. Hepatitis C 6. Gastrointestinal and deep vein thrombosis prophylaxes. Plan: current management SW for placement Schedule for Stress test Negative cardiac stress test Subjective ROS Limited/Unobtainable: No Constitutional: Reports: malaise HEENT: Reports: no symptoms Cardiovascular: Reports: no symptoms Allergies: Coded Allergies: PENICILLINS (Verified Allergy, Unknown, 02/10/17) Objective Last 24 Hour Vital Signs Date Time Temp Pulse Resp B/P (MAP) Pulse Ox O2 Delivery O2 Flow Rate FiO2 02/09/18 11:43 97.8 51 18 140/77 97.8 02/09/18 08:21 62 141/78 02/09/18 07:41 98.5 62 20 141/78 98.5 02/09/18 06:21 144/87 02/09/18 05:49 159/91 02/09/18 04:00 98.0 62 18 149/91 98 Room Air 98.0 02/09/18 00:00 97.8 70 18 147/83 97 Room Air 97.8 02/08/18 21:15 97.5 02/08/18 21:14 72 148/87 02/08/18 20:00 97.5 72 18 148/87 98 Room Air 97.5 02/08/18 17:03 148/73 02/08/18 16:45 98.0 67 18 153/85 100 98.0 02/08/18 15:50 97.7 59 18 143/80 100 97.7 02/08/18 15:37 97.0 59 19 138/74 99 Room Air 97.0 Intake and Output 02/08/18 02/09/18 19:00 07:00 Intake Total 540 ml 350 ml Output Total 1600 ml 600 ml Balance -1060 ml -250 ml Intake Oral 540 ml 350 ml Output Urine Total 1600 ml 600 ml # Voids 2 4 # Bowel Movements 1 Laboratory Tests 02/09/18 05:40: White Blood Count 4.7L, Red Blood Count 3.09L, Hemoglobin 11.1L, Hematocrit 30.4L, Mean Corpuscular Volume 98, Mean Corpuscular Hemoglobin 35.7H, Mean Corpuscular Hemoglobin Concent 36.3H, Red Cell Distribution Width 12.2, Platelet Count 88L, Mean Platelet Volume 10.7H, Neutrophils (%) (Auto) , Lymphocytes (%) (Auto) , Monocytes (%) (Auto) , Eosinophils (%) (Auto) , Basophils (%) (Auto) , Differential Total Cells Counted 100, Neutrophils % ( Manual) 31L, Lymphocytes % (Manual) 57H, Monocytes % (Manual) 11H, Eosinophils % (Manual) 1, Basophils % (Manual) 0, Band Neutrophils 0, Platelet Estimate DecreasedL, Platelet Morphology Normal, Macrocytosis 1+, Sodium Level 141, Potassium Level 3.9, Chloride Level 108H, Carbon Dioxide Level 25, Anion Gap 8, Blood Urea Nitrogen 26H, Creatinine 1.3, Estimat Glomerular Filtration Rate > 60 , Glucose Level 139H, Calcium Level 8.6, Total Bilirubin 0.4, Aspartate Amino Transf (AST/SGOT) 155H, Alanine Aminotransferase (ALT/SGPT) 110H, Alkaline Phosphatase 126H, Ammonia 154H, Total Protein 8.1, Albumin 2.4L, Globulin 5.7, Albumin/Globulin Ratio 0.4L Height (Feet): 6 Height (Inches): 3.00 Weight (Pounds): 191 General Appearance: no apparent distress EENT: PERRL/EOMI Neck: supple Cardiovascular: normal rate Respiratory/Chest: lungs clear Extremities: non-tender Neurologic: supervisor extruding department II-XII grossly normal Isabel Dangelo MD February 09, 2018 13:14
--- NOTE | 2018-02-09 13:20 | GI Progress Note ---
Assessment/Plan Problems: (1) Hepatitis C ICD Codes: B19.20 - Unspecified viral hepatitis C without hepatic coma SNOMED: 33487353 (2) Liver cirrhosis ICD Codes: K74.60 - Unspecified cirrhosis of liver SNOMED: 36125716 (3) Hepatic encephalopathy ICD Codes: K72.90 - Hepatic failure, unspecified without coma SNOMED: 28904053 (4) Drug abuse ICD Codes: F19.10 - Other psychoactive substance abuse, uncomplicated SNOMED: 25941029 (5) Anemia ICD Codes: D64.9 - Anemia, unspecified SNOMED: 510673560 (6) Hyperammonemia ICD Codes: E72.20 - Disorder of urea cycle metabolism, unspecified SNOMED: 6556859 (7) Homelessness ICD Codes: Z59.0 - Homelessness SNOMED: 45970048 Status: stable Status Narrative Discussed with Dr. Bourne. Assessment/Plan macrocytic hyperchromic anemia >> B12/folate levels normal abdominal U/S reviewed >> Suspected chronic liver disease/cirrhosis. OB stool negative Hepatitis C >> will require outpatient work up and treatment elevated AST >> patient on statin, current use ETOH >> trend elevated ammonia levels >> lactulose + xifaxan ppi fu labs ETOH cessation education given to patient outpatient GI procedures to evaluate for varices, will need cardiac clearance okay for DC per GI standpoint The patient was seen and examined at bedside and all new and available data was reviewed in the patients chart. I agree with the above findings, impression and plan. (Patient seen earlier today. Signature stamp does not reflect patient encounter time.). - Bert Bourne MD Subjective Subjective feels better more alert Objective Last 24 Hour Vital Signs Date Time Temp Pulse Resp B/P (MAP) Pulse Ox O2 Delivery O2 Flow Rate FiO2 02/09/18 11:43 97.8 51 18 140/77 97.8 02/09/18 08:21 62 141/78 02/09/18 07:41 98.5 62 20 141/78 98.5 02/09/18 06:21 144/87 02/09/18 05:49 159/91 02/09/18 04:00 98.0 62 18 149/91 98 Room Air 98.0 02/09/18 00:00 97.8 70 18 147/83 97 Room Air 97.8 02/08/18 21:15 97.5 02/08/18 21:14 72 148/87 02/08/18 20:00 97.5 72 18 148/87 98 Room Air 97.5 02/08/18 17:03 148/73 02/08/18 16:45 98.0 67 18 153/85 100 98.0 02/08/18 15:50 97.7 59 18 143/80 100 97.7 02/08/18 15:37 97.0 59 19 138/74 99 Room Air 97.0 Intake and Output 02/08/18 02/09/18 19:00 07:00 Intake Total 540 ml 350 ml Output Total 1600 ml 600 ml Balance -1060 ml -250 ml Intake Oral 540 ml 350 ml Output Urine Total 1600 ml 600 ml # Voids 2 4 # Bowel Movements 1 Laboratory Tests Test 02/09/18 05:40 White Blood Count 4.7 K/UL (4.8-10.8) L Red Blood Count 3.09 M/UL (4.70-6.10) L Hemoglobin 11.1 G/DL (14.2-18.0) L Hematocrit 30.4 % (42.0-52.0) L Mean Corpuscular Volume 98 FL (80-99) Mean Corpuscular Hemoglobin 35.7 PG (27.0-31.0) H Mean Corpuscular Hemoglobin Concent 36.3 G/DL (32.0-36.0) H Red Cell Distribution Width 12.2 % (11.6-14.8) Platelet Count 88 K/UL (150-450) L Mean Platelet Volume 10.7 FL (6.5-10.1) H Neutrophils (%) (Auto) % (45.0-75.0) Lymphocytes (%) (Auto) % (20.0-45.0) Monocytes (%) (Auto) % (1.0-10.0) Eosinophils (%) (Auto) % (0.0-3.0) Basophils (%) (Auto) % (0.0-2.0) Differential Total Cells Counted 100 Neutrophils % (Manual) 31 % (45-75) L Lymphocytes % (Manual) 57 % (20-45) H Monocytes % (Manual) 11 % (1-10) H Eosinophils % (Manual) 1 % (0-3) Basophils % (Manual) 0 % (0-2) Band Neutrophils 0 % (0-8) Platelet Estimate Decreased L Platelet Morphology Normal Macrocytosis 1+ Sodium Level 141 MMOL/L (136-145) Potassium Level 3.9 MMOL/L (3.5-5.1) Chloride Level 108 MMOL/L (98-107) H Carbon Dioxide Level 25 MMOL/L (21-32) Anion Gap 8 mmol/L (5-15) Blood Urea Nitrogen 26 mg/dL (7-18) H Creatinine 1.3 MG/DL (0.55-1.30) Estimat Glomerular Filtration Rate > 60 mL/min (>60) Glucose Level 139 MG/DL (74-106) H Calcium Level 8.6 MG/DL (8.5-10.1) Total Bilirubin 0.4 MG/DL (0.2-1.0) Aspartate Amino Transf (AST/SGOT) 155 U/L (15-37) H Alanine Aminotransferase (ALT/SGPT) 110 U/L (12-78) H Alkaline Phosphatase 126 U/L (46-116) H Ammonia 154 umol/L (11-32) H Total Protein 8.1 G/DL (6.4-8.2) Albumin 2.4 G/DL (3.4-5.0) L Globulin 5.7 g/dL Albumin/Globulin Ratio 0.4 (1.0-2.7) L Height (Feet): 6 Height (Inches): 3.00 Weight (Pounds): 191 General Appearance: WD/WN, no apparent distress, alert Cardiovascular: normal rate Respiratory/Chest: normal breath sounds, no respiratory distress Abdominal Exam: normal bowel sounds, non tender, soft Extremities: normal range of motion, non-tender Raquel Sow NKisha February 09, 2018 13:20
--- NOTE | 2018-02-09 15:19 | Nephrology Progress Note ---
Assessment/Plan Problem List: (1) Acute renal failure Assessment: Cr lowering (2) Anemia (3) Hyperammonemia Assessment Acute Renal failure ? On Chronic Cr down now WNL Anemia Others: 1. 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 2. 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 3. h/o Hepatitis C. 4. h/o Peripheral neuropathy. Plan K supplement as needed Mag supplement as needed Lactulose- Flomax Monitor renal parameters per orders Subjective ROS Limited/Unobtainable: No Constitutional: Reports: malaise Objective Objective Last 24 Hour Vital Signs Date Time Temp Pulse Resp B/P (MAP) Pulse Ox O2 Delivery O2 Flow Rate FiO2 02/09/18 11:43 97.8 51 18 140/77 97.8 02/09/18 08:21 62 141/78 02/09/18 07:41 98.5 62 20 141/78 98.5 02/09/18 06:21 144/87 02/09/18 05:49 159/91 02/09/18 04:00 98.0 62 18 149/91 98 Room Air 98.0 02/09/18 00:00 97.8 70 18 147/83 97 Room Air 97.8 02/08/18 21:15 97.5 02/08/18 21:14 72 148/87 02/08/18 20:00 97.5 72 18 148/87 98 Room Air 97.5 02/08/18 17:03 148/73 02/08/18 16:45 98.0 67 18 153/85 100 98.0 02/08/18 15:50 97.7 59 18 143/80 100 97.7 02/08/18 15:37 97.0 59 19 138/74 99 Room Air 97.0 Intake and Output 02/08/18 02/09/18 19:00 07:00 Intake Total 540 ml 350 ml Output Total 1600 ml 600 ml Balance -1060 ml -250 ml Intake Oral 540 ml 350 ml Output Urine Total 1600 ml 600 ml # Voids 2 4 # Bowel Movements 1 Laboratory Tests 02/09/18 05:40: White Blood Count 4.7L, Red Blood Count 3.09L, Hemoglobin 11.1L, Hematocrit 30.4L, Mean Corpuscular Volume 98, Mean Corpuscular Hemoglobin 35.7H, Mean Corpuscular Hemoglobin Concent 36.3H, Red Cell Distribution Width 12.2, Platelet Count 88L, Mean Platelet Volume 10.7H, Neutrophils (%) (Auto) , Lymphocytes (%) (Auto) , Monocytes (%) (Auto) , Eosinophils (%) (Auto) , Basophils (%) (Auto) , Differential Total Cells Counted 100, Neutrophils % ( Manual) 31L, Lymphocytes % (Manual) 57H, Monocytes % (Manual) 11H, Eosinophils % (Manual) 1, Basophils % (Manual) 0, Band Neutrophils 0, Platelet Estimate DecreasedL, Platelet Morphology Normal, Macrocytosis 1+, Sodium Level 141, Potassium Level 3.9, Chloride Level 108H, Carbon Dioxide Level 25, Anion Gap 8, Blood Urea Nitrogen 26H, Creatinine 1.3, Estimat Glomerular Filtration Rate > 60 , Glucose Level 139H, Calcium Level 8.6, Total Bilirubin 0.4, Aspartate Amino Transf (AST/SGOT) 155H, Alanine Aminotransferase (ALT/SGPT) 110H, Alkaline Phosphatase 126H, Ammonia 154H, Total Protein 8.1, Albumin 2.4L, Globulin 5.7, Albumin/Globulin Ratio 0.4L Height (Feet): 6 Height (Inches): 3.00 Weight (Pounds): 191 General Appearance: no apparent distress Objective no change MART MOREIRA February 09, 2018 15:19
[2018-02-09] MEDS: Nitroglycerin Patch 0.2mg/hr TDERMAL SCH (16:08)
--- NOTE | 2018-02-09 18:27 | Neurology Progress Note ---
Interim History Interim History Interim History Mr. Grewal feels very well. He was sleeping when I went to see him. He said he had just finished his dinner. He walked with the therapist today and also did a few squats! He was steadier on his feet. The mind is clear. He has not noticed any new neurologic symptoms. He denies any weakness on one side or the other, numbness on one side or the other, problems with speech, problems with language, or other neurologic symptoms. Plans are for transfer to a SNF tomorrow. Review of Systems Neuro Review of Systems Benign. Objective Physical Exam Last Vital Signs Date Time Temp Pulse Resp B/P (MAP) Pulse Ox O2 Delivery O2 Flow Rate FiO2 02/09/18 16:08 148/94 02/09/18 16:05 97.8 73 18 97.8 02/09/18 04:00 98 Room Air Laboratory Tests Test 02/09/18 05:40 White Blood Count 4.7 K/UL (4.8-10.8) L Red Blood Count 3.09 M/UL (4.70-6.10) L Hemoglobin 11.1 G/DL (14.2-18.0) L Hematocrit 30.4 % (42.0-52.0) L Mean Corpuscular Volume 98 FL (80-99) Mean Corpuscular Hemoglobin 35.7 PG (27.0-31.0) H Mean Corpuscular Hemoglobin Concent 36.3 G/DL (32.0-36.0) H Red Cell Distribution Width 12.2 % (11.6-14.8) Platelet Count 88 K/UL (150-450) L Mean Platelet Volume 10.7 FL (6.5-10.1) H Neutrophils (%) (Auto) % (45.0-75.0) Lymphocytes (%) (Auto) % (20.0-45.0) Monocytes (%) (Auto) % (1.0-10.0) Eosinophils (%) (Auto) % (0.0-3.0) Basophils (%) (Auto) % (0.0-2.0) Differential Total Cells Counted 100 Neutrophils % (Manual) 31 % (45-75) L Lymphocytes % (Manual) 57 % (20-45) H Monocytes % (Manual) 11 % (1-10) H Eosinophils % (Manual) 1 % (0-3) Basophils % (Manual) 0 % (0-2) Band Neutrophils 0 % (0-8) Platelet Estimate Decreased L Platelet Morphology Normal Macrocytosis 1+ Sodium Level 141 MMOL/L (136-145) Potassium Level 3.9 MMOL/L (3.5-5.1) Chloride Level 108 MMOL/L (98-107) H Carbon Dioxide Level 25 MMOL/L (21-32) Anion Gap 8 mmol/L (5-15) Blood Urea Nitrogen 26 mg/dL (7-18) H Creatinine 1.3 MG/DL (0.55-1.30) Estimat Glomerular Filtration Rate > 60 mL/min (>60) Glucose Level 139 MG/DL (74-106) H Calcium Level 8.6 MG/DL (8.5-10.1) Total Bilirubin 0.4 MG/DL (0.2-1.0) Aspartate Amino Transf (AST/SGOT) 155 U/L (15-37) H Alanine Aminotransferase (ALT/SGPT) 110 U/L (12-78) H Alkaline Phosphatase 126 U/L (46-116) H Ammonia 154 umol/L (11-32) H Total Protein 8.1 G/DL (6.4-8.2) Albumin 2.4 G/DL (3.4-5.0) L Globulin 5.7 g/dL Albumin/Globulin Ratio 0.4 (1.0-2.7) L Neurologic Exam Objective PHYSICAL EXAMINATION: GENERAL: He is a well-developed, well-nourished, pleasant black gentleman, sitting up at the edge of his bed, in no acute distress. HEAD: Normocephalic and atraumatic. NECK: No neck rigidity was observed. EENT: Examination benign. NEUROLOGIC EXAMINATION: MENTAL STATUS EXAMINATION: He was awake and alert. He was oriented to person, place and time except for the exact date. He was able to recall 3/3 words immediately, but could only remember 2/3 words in 1 minute and 3 minutes. He was able to remember presidents, Trump through [place], but could not remember presidents prior to that. His mathematical skills were impaired. His visuospatial function was also impaired. SPEECH: He had a mild dysarthria, but it should be noted that he was edentulous. LANGUAGE: He had anomia for low and mid frequency words. CRANIAL NERVE EXAMINATION: II: The visual hayes were intact to confrontation testing. III, IV & : The external ocular movements were full and the pupils 3 mm in diameter, equal, round, regular, and reactive to light. V: He had normal facial sensations, and the temporales, masseters, and pterygoids functioned normally. VII: He had left seventh central facial paresis. VIII: He was able to hear well bilaterally and had no nystagmus. IX: The palate moved symmetrically on phonation. X: He had no hoarseness of voice. XI: The sternocleidomastoids and trapezii functioned normally. XII: The tongue was in the midline without any fasciculations or atrophy. MOTOR SYSTEM: The tone was minimally increased in both lower extremities with a mild degree of spasticity. Examination of muscle mass revealed generalized muscle wasting. Examination of power revealed G 5/5 power except for G 5-/5 on the right and G 4 ++/5 on the left in the iliopsoas, ankle dorsiflexors and toe extensors. SENSORY EXAMINATION: He had intact sensations to pinprick and light touch, but complained of a subjective alteration over his entire left body. REFLEXES: 1+ on the right and 1++ on the left at the biceps, triceps, brachioradialis, and knees, 0 at both ankles. The plantar responses were flexor bilaterally. STANCE: He stood up with support on the right side. GAIT: He walked with support on the right side with a mildly left greater than right paraparetic gait - he however was steadier. ABNORMAL MOVEMENTS: Asterixis: G 0/4 in both UEs. Impression/Recommendations Diagnostic Impression 1. Mr. Cy Grewal is a 62-year-old, right-handed, black gentleman, with a past history of hypertension, diabetes mellitus, dyslipidemia, hepatitis, strokes, headaches, and a psychiatric illness, who was brought in for inappropriate behavior, and has since been admitted for renal failure, an encephalopathy and a non-ST elevation myocardial infarction. 2. He feels well. The mind is clear. He has not noticed any new neurologic symptoms. He denies any weakness on one side or the other, numbness on one side or the other, problems with speech, problems with language, or other neurologic symptoms. He walked well today and was steadier on his feet. Plans are for transfer to a SNF tomorrow. 3. On neurological examination, at this time, he is awake and alert. He is fully orientated except for the exact date. He does have problems with recent and remote memory, visuospatial function, higher cognitive function, and language. He also has a mild dysarthria, a left seventh central facial paresis, left greater than right paraparesis, with globally diminished reflexes that are slightly brisker on the left than on the right, decreased sensations over his left body, and a left greater than right paraparetic gait which is definitely better. 4. The CT scan of the brain without contrast reveals atrophy and deep white matter disease, consistent with underlying deep white matter cerebrovascular disease. 5. Laboratory data on my initial evaluation revealed that he was anemic with a hemoglobin of 11.0. His chemistry panel revealed that his BUN was elevated to 52 with a creatinine of 2.9. In addition, he also had a hyperammonemia with an ammonia of 74, his total bilirubin was elevated to 1.2 and his AST was elevated at 192. His free T4 was elevated at 1.56. His urinalysis was relatively benign. His toxicology screen is negative. Further laboratory tests revealed that his ammonia has elevated to 155, and his ESR is elevated at 105. 6. The MRI of the brain done on 02/01/18 revealed an acute infarct in the right insula, old lacunar infarcts in the left basal ganglia, midbrain and john. Foci of microhemorrhages in the midbrain and left frontal region with encephalomalacia. 7. The patient's history, neurological examination, CT scan and MRI scan findings, and laboratory data are most compatible with a multifactorial encephalopathy, most probably related to his underlying structural brain disease with super-added elevation in his BUN and creatinine and hyperammonemia. 8. The left greater than right paresis, is related to a combination of old and new cerebrovascular disease but is improving. Recommendations 1. Continue present management. 2. Continue aspirin 81 mg daily. 3. The patient's blood pressure, blood sugar, and lipids should be controlled. 4. No smoking. 5. Physical, occupational, and speech and language therapy. Aric Martinez M.D., [place]. ARIC MARTINEZ February 09, 2018 18:27
[2018-02-09] MEDS: Dyna-Hex 2% Top Sol 2oz TOPIC SCH (20:17)
[2018-02-09] MEDS: Lactulose 20gm/30ml UDC ORAL SCH ×2 (20:34→22:26)
--- NOTE | 2018-02-09 23:10 | Cardiology Progress Note ---
Assessment/Plan Assessment/Plan COVERAGE FOR DR. BOWSER 1. Elevated troponin and inferolateral EKG changes. No chest pain or SOB. Continue aspirin, Lipitor, and Coreg. Troponin levels are flat and likely due to renal failure as Cr was 3.5 Ef 60%. Nuclear stress test today with no clearcut ischemia. 2. Hypertension. Continue Norvasc and Coreg. Avoid GUANAKITO inhibitors in view of renal failure. 3. Hyperlipidemia, on Lipitor. Subjective Subjective Awake and alert, not on telemetry bed. Objective Last 24 Hour Vital Signs Date Time Temp Pulse Resp B/P (MAP) Pulse Ox O2 Delivery O2 Flow Rate FiO2 02/09/18 20:18 63 156/87 02/09/18 20:00 98.1 63 17 156/87 100 Room Air 98.1 02/09/18 16:08 148/94 02/09/18 16:05 97.8 73 18 148/94 97.8 02/09/18 11:43 97.8 51 18 140/77 97.8 02/09/18 08:21 62 141/78 02/09/18 07:41 98.5 62 20 141/78 98.5 02/09/18 06:21 144/87 02/09/18 05:49 159/91 02/09/18 04:00 98.0 62 18 149/91 98 Room Air 98.0 02/09/18 00:00 97.8 70 18 147/83 97 Room Air 97.8 Intake and Output 02/08/18 02/09/18 19:00 07:00 Intake Total 540 ml 350 ml Output Total 1600 ml 600 ml Balance -1060 ml -250 ml Intake Oral 540 ml 350 ml Output Urine Total 1600 ml 600 ml # Voids 2 4 # Bowel Movements 1 2D Echo: EF 60%, RVSP 42 mmHg, Mild LVH, RAP 20 mmHg Laboratory Tests Test 02/09/18 05:40 White Blood Count 4.7 K/UL (4.8-10.8) L Red Blood Count 3.09 M/UL (4.70-6.10) L Hemoglobin 11.1 G/DL (14.2-18.0) L Hematocrit 30.4 % (42.0-52.0) L Mean Corpuscular Volume 98 FL (80-99) Mean Corpuscular Hemoglobin 35.7 PG (27.0-31.0) H Mean Corpuscular Hemoglobin Concent 36.3 G/DL (32.0-36.0) H Red Cell Distribution Width 12.2 % (11.6-14.8) Platelet Count 88 K/UL (150-450) L Mean Platelet Volume 10.7 FL (6.5-10.1) H Neutrophils (%) (Auto) % (45.0-75.0) Lymphocytes (%) (Auto) % (20.0-45.0) Monocytes (%) (Auto) % (1.0-10.0) Eosinophils (%) (Auto) % (0.0-3.0) Basophils (%) (Auto) % (0.0-2.0) Differential Total Cells Counted 100 Neutrophils % (Manual) 31 % (45-75) L Lymphocytes % (Manual) 57 % (20-45) H Monocytes % (Manual) 11 % (1-10) H Eosinophils % (Manual) 1 % (0-3) Basophils % (Manual) 0 % (0-2) Band Neutrophils 0 % (0-8) Platelet Estimate Decreased L Platelet Morphology Normal Macrocytosis 1+ Sodium Level 141 MMOL/L (136-145) Potassium Level 3.9 MMOL/L (3.5-5.1) Chloride Level 108 MMOL/L (98-107) H Carbon Dioxide Level 25 MMOL/L (21-32) Anion Gap 8 mmol/L (5-15) Blood Urea Nitrogen 26 mg/dL (7-18) H Creatinine 1.3 MG/DL (0.55-1.30) Estimat Glomerular Filtration Rate > 60 mL/min (>60) Glucose Level 139 MG/DL (74-106) H Calcium Level 8.6 MG/DL (8.5-10.1) Total Bilirubin 0.4 MG/DL (0.2-1.0) Aspartate Amino Transf (AST/SGOT) 155 U/L (15-37) H Alanine Aminotransferase (ALT/SGPT) 110 U/L (12-78) H Alkaline Phosphatase 126 U/L (46-116) H Ammonia 154 umol/L (11-32) H Total Protein 8.1 G/DL (6.4-8.2) Albumin 2.4 G/DL (3.4-5.0) L Globulin 5.7 g/dL Albumin/Globulin Ratio 0.4 (1.0-2.7) L Objective HEAD AND NECK: No JVD. LUNGS: Coarse rhonchi. CARDIOVASCULAR: Regular S1 and S2 with no gallop. ABDOMEN: Soft. EXTREMITIES: No edema. MAXI JACKSON February 09, 2018 23:10
[2018-02-10] VITALS (7 sets, daily range): BP systolic 132–165; BP diastolic 66–92
[2018-02-10 06:34] LABS: HEMATOCRIT 29.8 % (42.0-52.0); HEMOGLOBIN 10.9 G/DL (14.2-18.0); MEAN CORPUSCULAR VOLUME 98 FL (80-99); PLATELET COUNT 103 K/UL (150-450); RED BLOOD COUNT 3.04 M/UL (4.70-6.10); RED CELL DISTRIBUTION WIDTH 12.4 % (11.6-14.8)
[2018-02-10 06:48] LABS: AMMONIA 74 umol/L (11-32)
[2018-02-10 06:51] LABS: ALANINE AMINOTRANSFERASE 113 U/L (12-78); ALBUMIN 2.4 G/DL (3.4-5.0); ALBUMIN/GLOBULIN RATIO 0.4 (1.0-2.7); ALKALINE PHOSPHATASE 133 U/L (46-116); ANION GAP 8 mmol/L (5-15); ASPARTATE AMINO TRANSFERASE 156 U/L (15-37); BILIRUBIN,TOTAL 0.4 MG/DL (0.2-1.0); BLOOD UREA NITROGEN 23 mg/dL (7-18); CALCIUM 8.6 MG/DL (8.5-10.1); CARBON DIOXIDE 24 MMOL/L (21-32); CHLORIDE 110 MMOL/L (98-107); CREATININE 1.4 MG/DL (0.55-1.30); POTASSIUM 3.8 MMOL/L (3.5-5.1); SODIUM 142 MMOL/L (136-145)
[2018-02-10] MEDS: Tamsulosin 0.4mg cap ORAL SCH (08:17)
[2018-02-10] MEDS: Aspirin Baby 81mg ORAL SCH (08:17)
[2018-02-10] MEDS: Metoprolol 25mg tab ORAL SCH (08:18)
--- NOTE | 2018-02-10 10:50 | GI Progress Note ---
Assessment/Plan Problems: (1) Hepatitis C ICD Codes: B19.20 - Unspecified viral hepatitis C without hepatic coma SNOMED: 41685697 (2) Liver cirrhosis ICD Codes: K74.60 - Unspecified cirrhosis of liver SNOMED: 12554095 (3) Hepatic encephalopathy ICD Codes: K72.90 - Hepatic failure, unspecified without coma SNOMED: 46533582 (4) Drug abuse ICD Codes: F19.10 - Other psychoactive substance abuse, uncomplicated SNOMED: 12305059 (5) Anemia ICD Codes: D64.9 - Anemia, unspecified SNOMED: 855715832 (6) Hyperammonemia ICD Codes: E72.20 - Disorder of urea cycle metabolism, unspecified SNOMED: 4815781 (7) Homelessness ICD Codes: Z59.0 - Homelessness SNOMED: 79643849 Status: stable Status Narrative Discussed with Dr. Bourne. Assessment/Plan macrocytic hyperchromic anemia >> B12/folate levels normal abdominal U/S reviewed >> Suspected chronic liver disease/cirrhosis. OB stool negative Hepatitis C >> will require outpatient work up and treatment elevated AST >> patient on statin, current use ETOH >> trend elevated ammonia levels >> lactulose + xifaxan ppi fu labs ETOH cessation education given to patient outpatient GI procedures to evaluate for varices, will need cardiac clearance okay for DC per GI standpoint The patient was seen and examined at bedside and all new and available data was reviewed in the patients chart. I agree with the above findings, impression and plan. (Patient seen earlier today. Signature stamp does not reflect patient encounter time.). - Bert Bourne MD Subjective Subjective feels better more alert Objective Last 24 Hour Vital Signs Date Time Temp Pulse Resp B/P (MAP) Pulse Ox O2 Delivery O2 Flow Rate FiO2 02/10/18 08:18 63 165/92 02/10/18 08:00 97.3 63 22 165/92 99 Room Air 97.3 02/10/18 04:00 97.6 62 17 153/84 98 Room Air 97.6 02/10/18 00:00 97.8 59 18 132/66 100 Room Air 97.8 02/09/18 20:18 63 156/87 02/09/18 20:00 98.1 63 17 156/87 100 Room Air 98.1 02/09/18 16:08 148/94 02/09/18 16:05 97.8 73 18 148/94 97.8 02/09/18 11:43 97.8 51 18 140/77 97.8 Intake and Output 02/09/18 02/10/18 19:00 07:00 Intake Total 1420 ml 1280 ml Output Total 1600 ml 1530 ml Balance -180 ml -250 ml Intake Oral 1420 ml 1280 ml Output Urine Total 1600 ml 1530 ml # Voids 4 Laboratory Tests Test 02/10/18 06:00 White Blood Count 5.0 K/UL (4.8-10.8) Red Blood Count 3.04 M/UL (4.70-6.10) L Hemoglobin 10.9 G/DL (14.2-18.0) L Hematocrit 29.8 % (42.0-52.0) L Mean Corpuscular Volume 98 FL (80-99) Mean Corpuscular Hemoglobin 35.8 PG (27.0-31.0) H Mean Corpuscular Hemoglobin Concent 36.5 G/DL (32.0-36.0) H Red Cell Distribution Width 12.4 % (11.6-14.8) Platelet Count 103 K/UL (150-450) L Mean Platelet Volume 11.1 FL (6.5-10.1) H Neutrophils (%) (Auto) % (45.0-75.0) Lymphocytes (%) (Auto) % (20.0-45.0) Monocytes (%) (Auto) % (1.0-10.0) Eosinophils (%) (Auto) % (0.0-3.0) Basophils (%) (Auto) % (0.0-2.0) Differential Total Cells Counted 100 Neutrophils % (Manual) 20 % (45-75) L Lymphocytes % (Manual) 65 % (20-45) H Monocytes % (Manual) 11 % (1-10) H Eosinophils % (Manual) 3 % (0-3) Basophils % (Manual) 1 % (0-2) Band Neutrophils 0 % (0-8) Platelet Estimate Decreased L Platelet Morphology Normal Red Blood Cell Morphology Normal Sodium Level 142 MMOL/L (136-145) Potassium Level 3.8 MMOL/L (3.5-5.1) Chloride Level 110 MMOL/L (98-107) H Carbon Dioxide Level 24 MMOL/L (21-32) Anion Gap 8 mmol/L (5-15) Blood Urea Nitrogen 23 mg/dL (7-18) H Creatinine 1.4 MG/DL (0.55-1.30) H Estimat Glomerular Filtration Rate > 60 mL/min (>60) Glucose Level 112 MG/DL (74-106) H Calcium Level 8.6 MG/DL (8.5-10.1) Total Bilirubin 0.4 MG/DL (0.2-1.0) Aspartate Amino Transf (AST/SGOT) 156 U/L (15-37) H Alanine Aminotransferase (ALT/SGPT) 113 U/L (12-78) H Alkaline Phosphatase 133 U/L (46-116) H Ammonia 74 umol/L (11-32) H Total Protein 7.8 G/DL (6.4-8.2) Albumin 2.4 G/DL (3.4-5.0) L Globulin 5.4 g/dL Albumin/Globulin Ratio 0.4 (1.0-2.7) L Height (Feet): 6 Height (Inches): 3.00 Weight (Pounds): 191 General Appearance: WD/WN, no apparent distress, alert Cardiovascular: normal rate Respiratory/Chest: normal breath sounds, no respiratory distress Abdominal Exam: normal bowel sounds, non tender, soft Extremities: normal range of motion, non-tender Raquel Sow NKisha February 10, 2018 10:50
--- NOTE | 2018-02-10 11:16 | General Progress Note ---
Assessment/Plan Status: stable Assessment/Plan 1. Acute Right insular ischemic CVA 2.Acute Anemia. 3. Liver cirrhosis. 4. Abnormal Troponin 4. Acute on chronic renal failure. 5. Hyperlipidemia. 6. Hepatitis C 6. Gastrointestinal and deep vein thrombosis prophylaxes. Plan: current management SW for placement Schedule for Stress test Negative cardiac stress test Medically stable. Subjective ROS Limited/Unobtainable: No Constitutional: Reports: no symptoms HEENT: Reports: no symptoms Cardiovascular: Reports: no symptoms Allergies: Coded Allergies: PENICILLINS (Verified Allergy, Unknown, 02/10/17) Objective Last 24 Hour Vital Signs Date Time Temp Pulse Resp B/P (MAP) Pulse Ox O2 Delivery O2 Flow Rate FiO2 02/10/18 09:30 98.9 63 20 149/81 99 Room Air 98.9 02/10/18 08:18 63 165/92 02/10/18 08:00 97.3 63 22 165/92 99 Room Air 97.3 02/10/18 04:00 97.6 62 17 153/84 98 Room Air 97.6 02/10/18 00:00 97.8 59 18 132/66 100 Room Air 97.8 02/09/18 20:18 63 156/87 02/09/18 20:00 98.1 63 17 156/87 100 Room Air 98.1 02/09/18 16:08 148/94 02/09/18 16:05 97.8 73 18 148/94 97.8 02/09/18 11:43 97.8 51 18 140/77 97.8 Intake and Output 02/09/18 02/10/18 19:00 07:00 Intake Total 1420 ml 1280 ml Output Total 1600 ml 1530 ml Balance -180 ml -250 ml Intake Oral 1420 ml 1280 ml Output Urine Total 1600 ml 1530 ml # Voids 4 Laboratory Tests 02/10/18 06:00: White Blood Count 5.0, Red Blood Count 3.04L, Hemoglobin 10.9L, Hematocrit 29.8L , Mean Corpuscular Volume 98, Mean Corpuscular Hemoglobin 35.8H, Mean Corpuscular Hemoglobin Concent 36.5H, Red Cell Distribution Width 12.4, Platelet Count 103L, Mean Platelet Volume 11.1H, Neutrophils (%) (Auto) , Lymphocytes (%) (Auto) , Monocytes (%) (Auto) , Eosinophils (%) (Auto) , Basophils (%) (Auto) , Differential Total Cells Counted 100, Neutrophils % ( Manual) 20L, Lymphocytes % (Manual) 65H, Monocytes % (Manual) 11H, Eosinophils % (Manual) 3, Basophils % (Manual) 1, Band Neutrophils 0, Platelet Estimate DecreasedL, Platelet Morphology Normal, Red Blood Cell Morphology Normal, Sodium Level 142, Potassium Level 3.8, Chloride Level 110H, Carbon Dioxide Level 24, Anion Gap 8, Blood Urea Nitrogen 23H, Creatinine 1.4H, Estimat Glomerular Filtration Rate > 60, Glucose Level 112H, Calcium Level 8.6, Total Bilirubin 0.4, Aspartate Amino Transf (AST/SGOT) 156H, Alanine Aminotransferase (ALT/SGPT) 113H, Alkaline Phosphatase 133H, Ammonia 74H, Total Protein 7.8, Albumin 2.4L, Globulin 5.4, Albumin/Globulin Ratio 0.4L Height (Feet): 6 Height (Inches): 3.00 Weight (Pounds): 191 General Appearance: WD/WN EENT: PERRL/EOMI Neck: supple Cardiovascular: normal rate Respiratory/Chest: lungs clear Abdomen: soft Extremities: non-tender Neurologic: trauma director II-XII grossly normal Isabel Dangelo MD February 10, 2018 11:16
--- NOTE | 2018-02-10 14:50 | Nephrology Progress Note ---
Assessment/Plan Problem List: (1) Acute renal failure Assessment: Cr lowering (2) Anemia (3) Hyperammonemia Assessment Acute Renal failure ? On Chronic Cr down now WNL Anemia Others: 1. 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 2. 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 3. h/o Hepatitis C. 4. h/o Peripheral neuropathy. Plan K supplement as needed Mag supplement as needed Lactulose- Flomax Monitor renal parameters per orders Subjective ROS Limited/Unobtainable: No Objective Objective Last 24 Hour Vital Signs Date Time Temp Pulse Resp B/P (MAP) Pulse Ox O2 Delivery O2 Flow Rate FiO2 02/10/18 12:00 98.5 64 20 143/75 100 Room Air 98.5 02/10/18 09:30 98.9 63 20 149/81 99 Room Air 98.9 02/10/18 08:18 63 165/92 02/10/18 08:00 97.3 63 22 165/92 99 Room Air 97.3 02/10/18 04:00 97.6 62 17 153/84 98 Room Air 97.6 02/10/18 00:00 97.8 59 18 132/66 100 Room Air 97.8 02/09/18 20:18 63 156/87 02/09/18 20:00 98.1 63 17 156/87 100 Room Air 98.1 02/09/18 16:08 148/94 02/09/18 16:05 97.8 73 18 148/94 97.8 Intake and Output 02/09/18 02/10/18 19:00 07:00 Intake Total 1420 ml 1280 ml Output Total 1600 ml 1530 ml Balance -180 ml -250 ml Intake Oral 1420 ml 1280 ml Output Urine Total 1600 ml 1530 ml # Voids 4 Laboratory Tests 02/10/18 06:00: White Blood Count 5.0, Red Blood Count 3.04L, Hemoglobin 10.9L, Hematocrit 29.8L , Mean Corpuscular Volume 98, Mean Corpuscular Hemoglobin 35.8H, Mean Corpuscular Hemoglobin Concent 36.5H, Red Cell Distribution Width 12.4, Platelet Count 103L, Mean Platelet Volume 11.1H, Neutrophils (%) (Auto) , Lymphocytes (%) (Auto) , Monocytes (%) (Auto) , Eosinophils (%) (Auto) , Basophils (%) (Auto) , Differential Total Cells Counted 100, Neutrophils % ( Manual) 20L, Lymphocytes % (Manual) 65H, Monocytes % (Manual) 11H, Eosinophils % (Manual) 3, Basophils % (Manual) 1, Band Neutrophils 0, Platelet Estimate DecreasedL, Platelet Morphology Normal, Red Blood Cell Morphology Normal, Sodium Level 142, Potassium Level 3.8, Chloride Level 110H, Carbon Dioxide Level 24, Anion Gap 8, Blood Urea Nitrogen 23H, Creatinine 1.4H, Estimat Glomerular Filtration Rate > 60, Glucose Level 112H, Calcium Level 8.6, Total Bilirubin 0.4, Aspartate Amino Transf (AST/SGOT) 156H, Alanine Aminotransferase (ALT/SGPT) 113H, Alkaline Phosphatase 133H, Ammonia 74H, Total Protein 7.8, Albumin 2.4L, Globulin 5.4, Albumin/Globulin Ratio 0.4L Height (Feet): 6 Height (Inches): 3.00 Weight (Pounds): 191 General Appearance: no apparent distress Objective no change MART MOREIRA February 10, 2018 14:50
[2018-02-10] MEDS: Nitroglycerin Patch 0.2mg/hr TDERMAL SCH (16:19)
[2018-02-10] MEDS ORDERED: METOPROLOL TART25 MG ORAL (16:48)
[2018-02-10] MEDS ORDERED: FLOMAX0.4 MG ORAL (16:49)
[2018-02-10] MEDS ORDERED: POTASSIUM CHLO20 ME1 ORAL (16:50)
[2018-02-10] MEDS ORDERED: RISPERDAL1 MG/1 ML PO (16:51)
[2018-02-10] MEDS ORDERED: ATORVASTATIN CA20 MG ORAL (16:53)
--- NOTE | 2018-02-12 12:55 | Discharge Summary ---
Discharge Summary Discharge Summary Discharge Summary DATE OF ADMISSION: 01/29/2018 DATE OF DISCHARGE: 02/10/2018 CONSULTANTS: Dr. Grover Rouse [facility] HOSPITAL COURSE: Patient is a 62-year-old -[place] male, who presented to ED via 911 call. He was found to show inappropriate behavior on the street. Source of information was limited through patient. There was no reported history of seizure activities, shortness of breath, nor chest pain. On evaluation at ED, there was no obvious signs of trauma. Blood work with out any leukocytosis, urinalysis within normal. Urine drug screen was negative, serum EtOH negative. CT of the head was unremarkable. Ammonia level was elevated to 74, liver function were elevated. Troponin was 0.133. EKG in normal sinus rhythm, with T-wave inversions in the lateral and inferior leads. He was admitted for encephalopathy, renal failure and cardiac evaluation. He underwent neurologic evaluation. Brain MRI showed a small acute infarct in the right insular lobe. Carotid exam showed minimal stenosis in the right carotid. He was given aspirin 81 mg daily. Troponin was elevated. EKG with inferior lateral changes. He was given Lipitor and Coreg. Norvasc was eventually added to his regimen Echocardiogram with EF 60%, no aortic insufficiency, mild mitral regurgitation, mild tricuspid regurgitation and mild pulmonary hypertension. He underwent nuclear stress tests with no clear-cut ischemia. Troponin levels remained flat, likely due to renal failure. He had elevated kidney function. He was given Flomax. ARB and hydrochlorothiazide was discontinued. Creatinine eventually normalized. He had elevated ammonia levels. He was given lactulose and Xifaxan. Abdominal ultrasound showed chronic liver disease/cirrhosis. Anemia workup showed microcytic hyperchromic anemia. Folate and B12 levels were normal. Stool OB was negative. Hepatitis C, will require outpatient workup and treatment. He was strongly advised against EtOH consumption. He also underwent psychiatric evaluation and was diagnosed with schizophrenia. He was given Risperdal. Mentation eventually improved. He was given PT and OT. Stress test was negative. He was eventually transferred to [facility]. FINAL DIAGNOSES: Acute right insular ischemic CVA Acute anemia Liver cirrhosis Elevated troponin secondary to troponin leak Acute on chronic renal failure Hypertension Hyperlipidemia Hepatitis C Liver cirrhosis Hepatic encephalopathy Schizophrenia DISPOSITION: Patient was transferred to a SNF. DISCHARGE MEDICATIONS: Refer to Discharge Medication List. I have been assigned to dictate discharge summary on this account, and I was not involved in the patient's management. Xiao Mejía NP February 12, 2018 12:55
== END 2018-02-10 17:20 | DRG 190 ==
LOC: EDBD 15:51 → EMR 17:41 → EDBEDREQ 19:20 → 2E 19:38 → EDBEDREQ 20:22 → 2E 01-31 08:47 → 4W 02-03 18:25 → 3E 02-08 16:45
PROC: 02HV33Z Insertion of Infusion Device into Superior Vena Cava, Percutaneous Approach (ICD-10-PCS; principal; 2018-02-02)
PROC: B518ZZA Fluoroscopy of Superior Vena Cava, Guidance (ICD-10-PCS; principal; 2018-02-02)
DX: I21.4 Non-ST elevation (NSTEMI) myocardial infarction (principal); I63.9 Cerebral infarction, unspecified; N17.9 Acute kidney failure, unspecified; E11.22 Type 2 diabetes mellitus with diabetic chronic kidney disease; I69.959 Hemiplegia and hemiparesis following unspecified cerebrovascular disease affecting unspecified side; K72.90 Hepatic failure, unspecified without coma; D64.9 Anemia, unspecified; I12.9 Hypertensive chronic kidney disease with stage 1 through stage 4 chronic kidney disease, or unspecified chronic kidney disease; N18.9 Chronic kidney disease, unspecified; E78.5 Hyperlipidemia, unspecified; R47.1 Dysarthria and anarthria; B18.2 Chronic viral hepatitis C; K74.60 Unspecified cirrhosis of liver; F19.10 Other psychoactive substance abuse, uncomplicated; Z59.0 Homelessness; F20.9 Schizophrenia, unspecified
CPT/HCPCS: 36415; 36569; 70450; 70551; 74230; 76700; 76937; 78452; 80048; 80053; 80061; 80307; 80329; 81003; 82140; 82248; 82270; 82306; 82607; 82728; 82746; 82962; 82977; 83036; 83540; 83550; 83735; 83880; 84100; 84425; 84439; 84443; 84484; 84550; 85007; 85025; 85610; 85651; 85730; 86140; 86592; 86705; 86709; 86803; 87081; 87340; 93005; 93017; 93306; 93880; 99285; J2785; J8499

== ENCOUNTER 2018-02-27 00:50 | Emergency (ER) | payer OTHER ==
[~2018-02-27] VITALS: Ht 190.5 cm; Wt 95.3 kg
[~2018-02-27 00:50] MED LIST changes: +AMLODIPINE BESY10 MG ORAL; +ATORVASTATIN CA20 MG ORAL; +FLOMAX0.4 MG ORAL; +GABAPENTIN300 MG ORAL; +METOPROLOL TART25 MG ORAL; +POTASSIUM CHLO20 ME1 ORAL; +RISPERDAL1 MG/1 ML PO
[2018-02-27 01:00] VITALS: BP 170/98
[2018-02-27] MEDS ORDERED: GABAPENTIN100 MG ORAL (01:14)
--- NOTE | 2018-02-27 01:14 | Emergency Room Report ---
History of Present Illness General Chief Complaint: Pain Source: Patient, Medical Record, EMS Present Illness HPI Is a 62-year-old male with history of CVA and high blood pressure. He presents with chief complaint of bilateral lower extremity pain. This is a chronic problem. He said he just left the hospital yesterday and thought it was this one. He called [address] Pain is 10 out of 10. Not on any medication. No fever chills but no nausea no vomiting. No trauma. No other complaint. Allergies: Coded Allergies: PENICILLINS (Verified Allergy, Unknown, 02/10/17) Patient History Past Medical History: see triage record, old chart reviewed Past Surgical History: other Pertinent Family History: none Social History: Denies: smoking Immunizations: other Reviewed Nursing Documentation: PMH: Agreed; PSxH: Agreed Nursing Documentation-PMH Past Medical History: No History, Except For Hx Cardiac Problems: Yes Hx Hypertension: Yes Hx Diabetes: Yes Hx Cancer: No Hx Gastrointestinal Problems: No Hx Neurological Problems: Yes Hx Cerebrovascular Accident: Yes Hx Transient Ischemic Attacks: No Hx Dementia: No Hx Alzheimer's Disease: No Hx Seizures: No Hx Epilepsy: No Hx Paralysis: No Hx Peripheral Neuropathy: Yes Hx Head Trauma: Yes Hx Traumatic Brain Injury: No Hx Speech Problem: Yes - Slurring d/t CVA Hx Dizziness: No Hx Headaches: Yes Hx Numbness: No Hx Weakness: No Hx Neurologic Surgery: No Hx Brain Shunt: No Review of Systems Eye: Denies: eye pain, blurred vision ENT: Denies: ear pain, nose congestion, throat swelling Respiratory: Denies: cough, shortness of breath Cardiovascular: Denies: chest pain, palpitations Gastrointestinal: Denies: abdominal pain, diarrhea, nausea, vomiting Musculoskeletal: Reports: joint pain, muscle pain; Denies: back pain Skin: Denies: rash Neurological: Denies: headache, numbness Endocrine: Denies: increased thirst, increased urine Hematologic/Lymphatic: Denies: easy bruising All Other Systems: negative except mentioned in HPI Physical Exam Vital Signs Date Time Temp Pulse Resp B/P (MAP) Pulse Ox O2 Delivery O2 Flow Rate FiO2 02/27/18 00:45 98.6 82 16 187/107 98 Room Air 98.6 vitals with high blood pressure Sp02 EP Interpretation: reviewed, normal General Appearance: well appearing, no apparent distress, alert Head: normocephalic, atraumatic Eyes: bilateral eye PERRL, bilateral eye EOMI ENT: hearing grossly normal, normal pharynx Neck: full range of motion, supple, no meningismus Respiratory: chest non-tender, lungs clear, normal breath sounds Cardiovascular #1: regular rate, rhythm, no murmur Gastrointestinal: normal bowel sounds, non tender, no mass, no organomegaly, no bruit, non-distended Musculoskeletal: back normal, gait/station normal, normal range of motion, tender - diffuse tenderness to the Lower extremities Neurologic: alert, oriented x3 Psychiatric: mood/affect normal Skin: warm/dry Medical Decision Making Diagnostic Impression: Primary Impression: Peripheral neuropathy ER Course Patient with peripheral neuropathy. His is chronic in nature. He has multiple tape hassan on his arms from IV sites a different hospital. Also with EKG leads on his chest. Since this is chronic, I see no need for further workup like her DVT study. We'll discharge home. Patient said he is taking blood pressure medication but can't tell me the name. Last Vital Signs Date Time Temp Pulse Resp B/P (MAP) Pulse Ox O2 Delivery O2 Flow Rate FiO2 02/27/18 01:00 98.1 92 16 170/98 100 Room Air 98.1 Status: improved Disposition: HOME, SELF-CARE Condition: Stable Scripts Gabapentin* (GABAPENTIN*) 100 Mg Capsule 100 MG ORAL THREE TIMES A DAY, #30 CAP Prov: JOSE CRUZ PARKER M.D. 02/27/18 Referrals: BREANA BARTHOLOMEW,REFERRING (PCP) Additional Instructions: Follow-up with your doctor in 7 days. Take your blood pressure medication. Return if symptom worsen. JOSE CRUZ PARKER M.D. February 27, 2018 01:14
[2018-02-27 01:30] VITALS: BP 168/90
== END 2018-02-27 01:30 | disposition home or self-care (01) ==
LOC: EDBD 00:50 → EMR 01:06
DX: E11.42 Type 2 diabetes mellitus with diabetic polyneuropathy (principal); Z86.73 Personal history of transient ischemic attack (TIA), and cerebral infarction without residual deficits; Z88.0 Allergy status to penicillin; I10 Essential (primary) hypertension
CPT/HCPCS: 99283

== ENCOUNTER 2018-03-01 13:14 | Inpatient (IN) | payer OTHER ==
[~2018-03-01] VITALS: Ht 185.4 cm; Wt 96.2 kg
[~2018-03-01 13:14] MED LIST changes: +GABAPENTIN100 MG ORAL
[2018-03-01] MEDS ORDERED: UNOBMED (13:17)
[2018-03-01 13:42] VITALS: BP 168/78
[2018-03-01 13:58] LABS: BASOPHILS % (AUTO) 1.1 % (0.0-2.0); EOSINOPHILS % (AUTO) 5.6 % (0.0-3.0); HEMOGLOBIN 9.7 G/DL (14.2-18.0); LYMPHOCYTES % (AUTO) 51.6 % (20.0-45.0); MEAN CORPUSCULAR VOLUME 98 FL (80-99); MONOCYTES % (AUTO) 15.3 % (1.0-10.0); NEUTROPHILS % (AUTO) 26.4 % (45.0-75.0); PLATELET COUNT 116 K/UL (150-450); RED BLOOD COUNT 2.97 M/UL (4.70-6.10); RED CELL DISTRIBUTION WIDTH 12.4 % (11.6-14.8); WHITE BLOOD COUNT 3.6 K/UL (4.8-10.8)
[2018-03-01 14:02] LABS: ANION GAP 6 mmol/L (5-15); BLOOD UREA NITROGEN 17 mg/dL (7-18); CALCIUM 9.3 MG/DL (8.5-10.1); CARBON DIOXIDE 27 MMOL/L (21-32); CHLORIDE 109 MMOL/L (98-107); CREATININE 1.5 MG/DL (0.55-1.30); POTASSIUM 3.3 MMOL/L (3.5-5.1); SODIUM 142 MMOL/L (136-145)
[2018-03-01 14:07] LABS: ALANINE AMINOTRANSFERASE 95 U/L (12-78); ALBUMIN 2.8 G/DL (3.4-5.0); ALBUMIN/GLOBULIN RATIO 0.5 (1.0-2.7); ALKALINE PHOSPHATASE 80 U/L (46-116); ASPARTATE AMINO TRANSFERASE 145 U/L (15-37); BILIRUBIN,TOTAL 0.9 MG/DL (0.2-1.0)
[2018-03-01] MEDS ORDERED: Thiamine HCl 100 MG in D5W 55 ML IVPB ONE (14:15)
[2018-03-01] MEDS ORDERED: Lactulose 20gm/30ml UDC ORAL ONE (14:15)
--- NOTE | 2018-03-01 14:16 | Emergency Room Report ---
History of Present Illness General Chief Complaint: General Complaint Source: Patient, Medical Record Present Illness HPI Patient is a 62-year-old male brought in by EMS after increased altered mental status. The patient had recent hospitalization for right insular CVA as well as encephalopathy. The patient was noted to have prior history of hepatic encephalopathy. The patient was brought in by EMS. The patient was noted to have some right-sided weakness. Allergies: Coded Allergies: PENICILLINS (Verified Allergy, Unknown, 02/10/17) UNABLE TO ASSESS (Unverified , 03/01/18) Patient History Reviewed Nursing Documentation: PMH: Agreed; PSxH: Agreed Nursing Documentation-PM Past Medical History: No History, Except For Hx Cardiac Problems: Yes Hx Hypertension: Yes - hyperlipedema Hx Diabetes: Yes Hx Cancer: No History Of Psychiatric Problem: Yes - schizo Hx Cerebrovascular Accident: Yes Hx Transient Ischemic Attacks: No Hx Dementia: No Hx Alzheimer's Disease: No Hx Seizures: No Hx Epilepsy: No Hx Paralysis: No Hx Peripheral Neuropathy: Yes Hx Head Trauma: Yes Hx Traumatic Brain Injury: No Hx Speech Problem: Yes - Slurring d/t CVA Hx Dizziness: No Hx Headaches: Yes Hx Numbness: No Hx Weakness: No Hx Neurologic Surgery: No Hx Brain Shunt: No Review of Systems All Other Systems: limited - by poor historian Physical Exam Vital Signs Date Time Temp Pulse Resp B/P (MAP) Pulse Ox O2 Delivery O2 Flow Rate FiO2 03/01/18 13:12 99.4 101 12 168/80 96 Room Air 99.3 Sp02 EP Interpretation: normal General Appearance: Chronically Ill Cardiovascular #1: normal peripheral pulses, regular rate, rhythm Gastrointestinal: normal bowel sounds, non tender, soft Musculoskeletal: normal inspection Neurologic: responsive, motor weakness - right upper extremity Skin: normal inspection, normal color Medical Decision Making Diagnostic Impression: Primary Impression: Hepatic encephalopathy Additional Impression: History of CVA with residual deficit ER Course Patient presented for altered mental status.Differential diagnosis included but was not limited to ischemic stroke, subarachnoid hemorrhage, hypoglycemia, spinal cord injury, neurodegenerative disorder, urinary tract infection, hypoxemia.Because of complexity of patient's case laboratory testing and imaging studies were ordered.The laboratory testing was notable for markedly elevated ammonia level with a negative blood alcohol level. CT of head showed no evidence of acute hemorrhage or ventriculomegaly. The patient was noted to have recent insular stroke. Dr. Dangelo was contacted for inpatient management due to need for inpatient monitoring and treatment. Labs Test 03/01/18 13:35 03/01/18 14:00 03/01/18 14:25 White Blood Count 3.6 K/UL (4.8-10.8) Red Blood Count 2.97 M/UL (4.70-6.10) Hemoglobin 9.7 G/DL (14.2-18.0) Hematocrit 29.0 % (42.0-52.0) Mean Corpuscular Volume 98 FL (80-99) Mean Corpuscular Hemoglobin 32.7 PG (27.0-31.0) Mean Corpuscular Hemoglobin Concent 33.4 G/DL (32.0-36.0) Red Cell Distribution Width 12.4 % (11.6-14.8) Platelet Count 116 K/UL (150-450) Mean Platelet Volume 8.8 FL (6.5-10.1) Neutrophils (%) (Auto) 26.4 % (45.0-75.0) Lymphocytes (%) (Auto) 51.6 % (20.0-45.0) Monocytes (%) (Auto) 15.3 % (1.0-10.0) Eosinophils (%) (Auto) 5.6 % (0.0-3.0) Basophils (%) (Auto) 1.1 % (0.0-2.0) Sodium Level 142 MMOL/L (136-145) Potassium Level 3.3 MMOL/L (3.5-5.1) Chloride Level 109 MMOL/L (98-107) Carbon Dioxide Level 27 MMOL/L (21-32) Anion Gap 6 mmol/L (5-15) Blood Urea Nitrogen 17 mg/dL (7-18) Creatinine 1.5 MG/DL (0.55-1.30) Estimat Glomerular Filtration Rate 57.4 mL/min (>60) Glucose Level 81 MG/DL (74-106) Calcium Level 9.3 MG/DL (8.5-10.1) Total Bilirubin 0.9 MG/DL (0.2-1.0) Aspartate Amino Transf (AST/SGOT) 145 U/L (15-37) Alanine Aminotransferase (ALT/SGPT) 95 U/L (12-78) Alkaline Phosphatase 80 U/L (46-116) Total Protein 8.2 G/DL (6.4-8.2) Albumin 2.8 G/DL (3.4-5.0) Globulin 5.4 g/dL Albumin/Globulin Ratio 0.5 (1.0-2.7) Salicylates Level < 0.2 ug/mL (2.8-20) Acetaminophen Level < 2 MCG/ML (10-30) Serum Alcohol < 3 mg/dL Urine Opiates Screen Negative (NEGATIVE) Urine Barbiturates Screen Negative (NEGATIVE) Phencyclidine (PCP) Screen Negative (NEGATIVE) Urine Amphetamines Screen Negative (NEGATIVE) Urine Benzodiazepines Screen Negative (NEGATIVE) Urine Cocaine Screen Negative (NEGATIVE) Urine Marijuana (THC) Screen Negative (NEGATIVE) Ammonia 116 umol/L (11-32) EKG Diagnostic Results Rate: normal - 99 Rhythm: NSR ST Segments: other - inferior twave inversions Last Vital Signs Date Time Temp Pulse Resp B/P (MAP) Pulse Ox O2 Delivery O2 Flow Rate FiO2 03/01/18 13:42 99.3 84 12 168/78 96 Room Air 99.3 Status: unchanged Disposition: XFER [facility] Condition: Serious Referrals: BREANA BARTHOLOMEW,REFERRING (PCP) Ben Ware MD March 01, 2018 14:16
[2018-03-01 15:35] VITALS: BP 182/100
[2018-03-01 17:00] VITALS: BP 160/80
[2018-03-01 17:30] VITALS: BP 167/107
[2018-03-01 17:45] VITALS: BP 160/80
[2018-03-01 20:00] VITALS: BP 143/72
[2018-03-01] MEDS: D5NS 1,000 ML IV SCH (22:30)
[2018-03-02] VITALS: BP 168/86
[2018-03-02 04:00] VITALS: BP 135/72
[2018-03-02 08:00] VITALS: BP 143/89
--- NOTE | 2018-03-02 08:17 | Cardiology Progress Note ---
Assessment/Plan Assessment/Plan The patient is seen and examined, full consult note will is dictated. Objective Last 24 Hour Vital Signs Date Time Temp Pulse Resp B/P (MAP) Pulse Ox O2 Delivery O2 Flow Rate FiO2 03/02/18 04:00 65 03/02/18 04:00 97.8 65 19 135/72 99 Room Air 97.8 03/02/18 00:00 97.7 69 20 168/86 99 Room Air 97.7 03/02/18 00:00 80 03/01/18 20:00 97.8 92 20 143/72 97 Room Air 97.8 03/01/18 20:00 77 03/01/18 17:45 97.5 80 20 160/80 96 Room Air 97.5 03/01/18 17:30 98.0 98 16 167/107 98 Room Air 03/01/18 17:30 98.0 98 16 167/107 98 Room Air 98.0 03/01/18 16:26 84 180/100 03/01/18 15:35 98.0 84 12 182/100 100 Room Air 98.0 03/01/18 13:42 99.3 84 12 168/78 96 Room Air 99.3 03/01/18 13:12 99.4 101 12 168/80 96 Room Air 99.3 Intake and Output 03/01/18 03/02/18 19:00 07:00 Intake Total 1056 ml Balance 1056 ml Intake Oral 0 ml IV Total 1056 ml # Voids 3 Laboratory Tests Test 03/01/18 13:35 03/01/18 14:00 03/01/18 14:25 White Blood Count 3.6 K/UL (4.8-10.8) L Red Blood Count 2.97 M/UL (4.70-6.10) L Hemoglobin 9.7 G/DL (14.2-18.0) L Hematocrit 29.0 % (42.0-52.0) L Mean Corpuscular Volume 98 FL (80-99) Mean Corpuscular Hemoglobin 32.7 PG (27.0-31.0) H Mean Corpuscular Hemoglobin Concent 33.4 G/DL (32.0-36.0) Red Cell Distribution Width 12.4 % (11.6-14.8) Platelet Count 116 K/UL (150-450) L Mean Platelet Volume 8.8 FL (6.5-10.1) Neutrophils (%) (Auto) 26.4 % (45.0-75.0) L Lymphocytes (%) (Auto) 51.6 % (20.0-45.0) H Monocytes (%) (Auto) 15.3 % (1.0-10.0) H Eosinophils (%) (Auto) 5.6 % (0.0-3.0) H Basophils (%) (Auto) 1.1 % (0.0-2.0) Sodium Level 142 MMOL/L (136-145) Potassium Level 3.3 MMOL/L (3.5-5.1) L Chloride Level 109 MMOL/L (98-107) H Carbon Dioxide Level 27 MMOL/L (21-32) Anion Gap 6 mmol/L (5-15) Blood Urea Nitrogen 17 mg/dL (7-18) Creatinine 1.5 MG/DL (0.55-1.30) H Estimat Glomerular Filtration Rate 57.4 mL/min (>60) Glucose Level 81 MG/DL (74-106) Calcium Level 9.3 MG/DL (8.5-10.1) Total Bilirubin 0.9 MG/DL (0.2-1.0) Aspartate Amino Transf (AST/SGOT) 145 U/L (15-37) H Alanine Aminotransferase (ALT/SGPT) 95 U/L (12-78) H Alkaline Phosphatase 80 U/L (46-116) Total Protein 8.2 G/DL (6.4-8.2) Albumin 2.8 G/DL (3.4-5.0) L Globulin 5.4 g/dL Albumin/Globulin Ratio 0.5 (1.0-2.7) L Salicylates Level < 0.2 ug/mL (2.8-20) L Acetaminophen Level < 2 MCG/ML (10-30) L Serum Alcohol < 3 mg/dL Urine Opiates Screen Negative (NEGATIVE) Urine Barbiturates Screen Negative (NEGATIVE) Phencyclidine (PCP) Screen Negative (NEGATIVE) Urine Amphetamines Screen Negative (NEGATIVE) Urine Benzodiazepines Screen Negative (NEGATIVE) Urine Cocaine Screen Negative (NEGATIVE) Urine Marijuana (THC) Screen Negative (NEGATIVE) Ammonia 116 umol/L (11-32) H Grover Malcolm MD March 02, 2018 08:17
--- NOTE | 2018-03-02 08:43 | History & Physical ---
History and Physical History & Physicial DATE OF ADMISSION: 01/29/2018 SOURCE OF INFORMATION: EMR. HISTORY OF PRESENT ILLNESS: The patient is a 62-year-old male. At the time of evaluation, the patient is drowsy. He is AO x1. There is limited source of information. However, appears comfortable. Per the ER documentation, the patient has been transferred secondary to change in level of consciousness. No reported history of seizure activities, or shortness of breath or chest pain, had been reported. At the time of evaluation, there is no abnormal bleeding. No headache. REVIEW OF SYSTEMS: All 12 elements of review of systems reviewed with the patient. Pertinent positive and negative as above. ALLERGIES: Penicillin. SOCIAL HISTORY: Unobtainable. CURRENT MEDICATIONS: The current doses of medication including but not limited to, Avapro 75 mg daily, hydrochlorothiazide 25 mg daily, gabapentin 300 mg 3 times a day, Coreg 3.125 mg b.i.d. IMAGING: CT scan of the head is obtained and is Negative for acute changes. PHYSICAL EXAMINATION: VITAL SIGNS: Blood pressure 135/60, temperature 98.2, pulse oximetry 98% on room air, pulse rate 50, respiratory rate 18. HEAD AND NECK: Atraumatic and normocephalic. CHEST: Clear to auscultation. No wheeze, no crackles. ABDOMEN: Soft. No organomegaly. MUSCULOSKELETAL: Atrophied musculature, spontaneous movement of all 4 extremities. NEUROLOGIC: Awake, alert, oriented x1. LABORATORY DATA: Reviewed in the chart ASSESSMENT AND PLAN: 1. Acute encephalopathy, multifactorial. 2. Anemia. 3. Abnormal liver function tests. 4. Acute on chronic renal failure. 5. Hyperlipidemia. 6. Gastrointestinal and deep vein thrombosis prophylaxes. PLAN OF CARE: Provide supplementation. Continue with the intravenous hydration. GI- Dr Bourne and Neuro Dr Ivan and Cardiology Dr Malcolm notifies comment: time of this note does not reflect actual time of the encounter Isabel Dangelo MD March 02, 2018 08:43
--- NOTE | 2018-03-02 08:46 | General Progress Note ---
Assessment/Plan Assessment/Plan S: patient is drowsy O: appears comfortable, Denies pain . AOX1 PHYSICAL EXAMINATION: HEAD AND NECK: Atraumatic and normocephalic. CHEST: Clear to auscultation. No wheeze, no crackles. ABDOMEN: Soft. fullness, MUSCULOSKELETAL: Atrophied musculature, spontaneous movement of all 4 extremities.NEUROLOGIC: Awake, alert, oriented x1. ASSESSMENT AND PLAN: 1. Acute on chronic encephalopathy, multifactorial. 2. 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 Anemia. 3. Liver cirrhosis 4. Chronic renal failure- at his base line 5. Hyperlipidemia. 6. Gastrointestinal and deep vein thrombosis prophylaxes. PLAN OF CARE: Neuro check, Keep NPO, monitor serum Ammonia level, Continue with the intravenous hydration. GI- Dr Bourne and Neuro Dr Ivan and Cardiology Dr Malcolm notifies Subjective Allergies: Coded Allergies: PENICILLINS (Verified Allergy, Unknown, 02/10/17) UNABLE TO ASSESS (Unverified , 03/01/18) Objective Last 24 Hour Vital Signs Date Time Temp Pulse Resp B/P (MAP) Pulse Ox O2 Delivery O2 Flow Rate FiO2 03/02/18 04:00 65 03/02/18 04:00 97.8 65 19 135/72 99 Room Air 97.8 03/02/18 00:00 97.7 69 20 168/86 99 Room Air 97.7 03/02/18 00:00 80 03/01/18 20:00 97.8 92 20 143/72 97 Room Air 97.8 03/01/18 20:00 77 03/01/18 17:45 97.5 80 20 160/80 96 Room Air 97.5 03/01/18 17:30 98.0 98 16 167/107 98 Room Air 03/01/18 17:30 98.0 98 16 167/107 98 Room Air 98.0 03/01/18 16:26 84 180/100 03/01/18 15:35 98.0 84 12 182/100 100 Room Air 98.0 03/01/18 13:42 99.3 84 12 168/78 96 Room Air 99.3 03/01/18 13:12 99.4 101 12 168/80 96 Room Air 99.3 Intake and Output 03/01/18 03/02/18 19:00 07:00 Intake Total 1056 ml Balance 1056 ml Intake Oral 0 ml IV Total 1056 ml # Voids 3 Laboratory Tests 03/01/18 13:35: White Blood Count 3.6L, Red Blood Count 2.97L, Hemoglobin 9.7L, Hematocrit 29.0L , Mean Corpuscular Volume 98, Mean Corpuscular Hemoglobin 32.7H, Mean Corpuscular Hemoglobin Concent 33.4, Red Cell Distribution Width 12.4, Platelet Count 116L, Mean Platelet Volume 8.8, Neutrophils (%) (Auto) 26.4L, Lymphocytes (%) (Auto) 51.6H, Monocytes (%) (Auto) 15.3H, Eosinophils (%) (Auto) 5.6H, Basophils (%) (Auto) 1.1, Sodium Level 142, Potassium Level 3.3L, Chloride Level 109H, Carbon Dioxide Level 27, Anion Gap 6, Blood Urea Nitrogen 17, Creatinine 1.5H, Estimat Glomerular Filtration Rate 57.4, Glucose Level 81, Calcium Level 9.3, Total Bilirubin 0.9, Aspartate Amino Transf (AST/SGOT) 145H, Alanine Aminotransferase (ALT/SGPT) 95H, Alkaline Phosphatase 80, Total Protein 8.2, Albumin 2.8L, Globulin 5.4, Albumin/Globulin Ratio 0.5L, Salicylates Level < 0.2L, Acetaminophen Level < 2L, Serum Alcohol < 3 03/01/18 14:00: Urine Opiates Screen Negative, Urine Barbiturates Screen Negative, Phencyclidine (PCP) Screen Negative, Urine Amphetamines Screen Negative, Urine Benzodiazepines Screen Negative, Urine Cocaine Screen Negative, Urine Marijuana (THC) Screen Negative 03/01/18 14:25: Ammonia 116H Height (Feet): 6 Height (Inches): 1.00 Weight (Pounds): 212 Isabel Dangelo MD March 02, 2018 08:46
[2018-03-02] MEDS ORDERED: Heparin 5000 units/ml inj SUBQ SCH (09:00)
[2018-03-02] MEDS: Atenolol 25mg tab ORAL SCH (09:13)
[2018-03-02] MEDS: Aspirin Baby 81mg NG SCH (09:13)
[2018-03-02] MEDS: hydroCHLOROthiazide 12.5mg TAB ORAL SCH (09:14)
[2018-03-02 09:49] LABS: HEMATOCRIT 30.4 % (42.0-52.0); HEMOGLOBIN 10.5 G/DL (14.2-18.0); MEAN CORPUSCULAR VOLUME 98 FL (80-99); PLATELET COUNT 88 K/UL (150-450); RED BLOOD COUNT 3.09 M/UL (4.70-6.10); RED CELL DISTRIBUTION WIDTH 12.3 % (11.6-14.8); WHITE BLOOD COUNT 3.6 K/UL (4.8-10.8)
--- NOTE | 2018-03-02 10:06 | Diagnostic Imaging Report ---
Indication: Altered mental status Technique: Contiguous 5 mm thick transaxial imaging of the head obtained in a Siemens Sensation [address] scanner. Soft tissue and bone windows generated. Automatic Exposure Control was utilized. Total Dose length Product (DLP): 1952.[address] Dose Index Volume (CTDIvol): 70.38,70.38 mGy Comparison: 01/29/2018 Findings: There is mild prominence of the ventricles, basal cisterns, and cerebral sulci consistent with atrophy. Mild, nonspecific, white matter hypoattenuation is noted throughout the brain consistent with chronic small vessel disease. There is no midline shift, edema, acute hemorrhage, mass effect, or abnormal extra-axial fluid collections. Bones and extra osseous soft tissues are unremarkable. Impression: No acute intracranial bleed, mass effect or edema. Mild atrophy of the brain. Nonspecific white matter hypoattenuation probably due to chronic small vessel disease. The CT scanner at [facility] is accredited by the [employer] and the scans are performed using dose optimization techniques as appropriate to a performed exam including Automatic Exposure control.
[2018-03-02] MEDS: D5NS 1,000 ML IV SCH ×2 (11:31→23:15)
[2018-03-02 12:00] VITALS: BP 149/85
--- NOTE | 2018-03-02 14:11 | GI Initial Consult Note ---
History of Present Illness General Date patient seen: March 02, 2018 Time patient seen: 15:39 Reason for Hospitalization: General Complaint Referring physician: DELANEY ROWLEY Reason for Consultation: HEPATIC ENCEPHALOPATHY Present Illness HPI Patient is a 62-year-old male brought in by EMS after increased altered mental status. The patient had recent hospitalization for right insular CVA as well as encephalopathy. The patient was noted to have prior history of hepatic encephalopathy. The patient was brought in by EMS. The patient was noted to have some right-sided weakness. GI consulted for hepatic encephalopathy. Pt seen, awake A&Ox3, not aware why he is in the hospital. NAD with no active s/sx of N/V/D. Patient was admitted here at [facility] previously for the similar reason. On the past admission, an abdominal U/S was performed in which we suspected chronic liver disease/ cirrhosis. In addition, the patient has untreated hepatitis C. He denies any ETOH use, states his last use was over 4 years ago. Presents today with anemia , transaminitis, and elevated ammonia levels. His last endoscopy was over 3 years ago. Unknown history of endoscopy / colonoscopy. Home Meds Active Scripts Gabapentin* (GABAPENTIN*) 100 Mg Capsule, 100 MG ORAL THREE TIMES A DAY, #30 CAP Prov:JOSE CRUZ PARKER M.D. 02/27/18 Amlodipine Besylate (Norvasc) 5 Mg Tablet, 5 MG ORAL BID for 30 Days, TAB Prov:Tian Hagan MD 03/05/17 Reported Medications Unable to Obtain Medications (UNABLE TO OBTAIN MEDS) 1 Ea Ea 03/01/18 Metoprolol Tartrate* (METOPROLOL TARTRATE*) 25 Mg Tablet, 25 MG ORAL EVERY 12 HOURS, TAB 02/10/18 Discontinued Reported Medications Atorvastatin Calcium* (ATORVASTATIN CALCIUM*) 20 Mg Tablet, 10 MG ORAL BEDTIME, TAB 02/10/18 Risperidone (RISPERDAL) 1 Mg/1 Ml Solution, 1 MG PO BEDTIME 02/10/18 Potassium Chloride* (K-DUR*) 20 Meq Tab.er.prt, 40 MEQ ORAL DAILY, #7 TAB 0 Refills 02/10/18 Tamsulosin HCl (Flomax) 0.4 Mg Cap.er.24h, 0.4 MG ORAL BID, CAP 02/10/18 Gabapentin* (GABAPENTIN*) 300 Mg Capsule, 300 MG ORAL THREE TIMES A DAY, CAP 0 Refills 01/29/18 Aspirin* (ASPIR 81*) 81 Mg Tablet., 81 MG ORAL DAILY, TAB 04/16/17 Pantoprazole* (PANTOPRAZOLE*) 40 Mg Tablet., 40 MG ORAL DAILY, TAB 04/14/17 Discontinued Scripts Lactulose (LACTULOSE*) 20 Gm/30 Ml Solution, 30 GM ORAL DAILY for 30 Days, #30 TBS Prov:Tian Hagan MD 04/16/17 Clonidine HCl (Clonidine HCl) 0.1 Mg Tablet, 0.1 MG ORAL Q4H PRN for 30 Days, TAB Prov:Tian Hagan MD 04/16/17 Acetaminophen* (ACETAMINOPHEN 325MG TABLET*) 325 Mg Tablet, 650 MG ORAL Q4H PRN for 30 Days, TAB Prov:Tian Hagan MD 03/05/17 Med list reviewed/reconciled: Yes Allergies: Coded Allergies: PENICILLINS (Verified Allergy, Unknown, 02/10/17) UNABLE TO ASSESS (Unverified , 03/01/18) Patient History Limited by: medical condition History Provided By: Patient, Medical Record PMH Narrative Past Medical History: No History, Except For Hx Cardiac Problems: Yes Hx Hypertension: Yes - hyperlipedema Hx Diabetes: Yes Hx Cancer: No History Of Psychiatric Problem: Yes - schizo Hx Cerebrovascular Accident: Yes Hx Transient Ischemic Attacks: No Hx Dementia: No Hx Alzheimer's Disease: No Hx Seizures: No Hx Epilepsy: No Hx Paralysis: No Hx Peripheral Neuropathy: Yes Hx Head Trauma: Yes Hx Traumatic Brain Injury: No Hx Speech Problem: Yes - Slurring d/t CVA Hx Dizziness: No Hx Headaches: Yes Hx Numbness: No Hx Weakness: No Hx Neurologic Surgery: No Hx Brain Shunt: No Social History: Denies: smoking, alcohol use, drug use, other Review of Systems All Other Systems: negative except mentioned in HPI Physical Exam Vital Signs Date Time Temp Pulse Resp B/P (MAP) Pulse Ox O2 Delivery O2 Flow Rate FiO2 03/01/18 13:12 99.4 101 12 168/80 96 Room Air 99.3 Sp02 EP Interpretation: reviewed, normal Labs Laboratory Tests Test 03/01/18 14:25 03/02/18 09:20 Ammonia 116 umol/L (11-32) H White Blood Count 3.6 K/UL (4.8-10.8) L Red Blood Count 3.09 M/UL (4.70-6.10) L Hemoglobin 10.5 G/DL (14.2-18.0) L Hematocrit 30.4 % (42.0-52.0) L Mean Corpuscular Volume 98 FL (80-99) Mean Corpuscular Hemoglobin 34.0 PG (27.0-31.0) H Mean Corpuscular Hemoglobin Concent 34.5 G/DL (32.0-36.0) Red Cell Distribution Width 12.3 % (11.6-14.8) Platelet Count 88 K/UL (150-450) L Mean Platelet Volume 7.8 FL (6.5-10.1) Neutrophils (%) (Auto) % (45.0-75.0) Lymphocytes (%) (Auto) % (20.0-45.0) Monocytes (%) (Auto) % (1.0-10.0) Eosinophils (%) (Auto) % (0.0-3.0) Basophils (%) (Auto) % (0.0-2.0) Differential Total Cells Counted 100 Neutrophils % (Manual) 20 % (45-75) L Lymphocytes % (Manual) 64 % (20-45) H Monocytes % (Manual) 12 % (1-10) H Eosinophils % (Manual) 4 % (0-3) H Basophils % (Manual) 0 % (0-2) Band Neutrophils 0 % (0-8) Platelet Estimate Decreased L Platelet Morphology Normal Hypochromasia 1+ Anisocytosis 1+ Troponin I 0.029 ng/mL (0.000-0.056) Pro-B-Type Natriuretic Peptide 391 pg/mL (0-125) H General Appearance: well appearing, no apparent distress, alert Head: normocephalic EENT: PERRL/EOMI, normal ENT inspection Neck: supple Respiratory: normal breath sounds, no respiratory distress Cardiovascular: normal rate Gastrointestinal: normal inspection, non tender, soft, normal bowel sounds, non -distended Rectal: deferred Genitourinary: deferred Musculoskeletal: normal inspection, back normal Neurologic: normal inspection, alert, oriented x3, responsive Psychiatric: normal inspection, judgement/insight normal, memory normal Skin: normal inspection, normal color, no rash, warm/dry, palpation normal, well hydrated, other - BLE cellulitis Lymphatic: normal inspection, no adenopathy Current Medications Current Medications Medications (Trade) Dose Ordered Sig/Sharla Route PRN Reason Start Time Stop Time Status Last Admin Dose Admin Acetaminophen (Tylenol) 650 mg Q4H PRN ORAL Mild Pain/Temp > 100.5 03/01/18 22:30 03/31/18 22:29 Aspirin (ASA) 81 mg DAILY NG 03/02/18 09:00 04/01/18 08:59 03/02/18 09:13 Atenolol (Tenormin) 25 mg DAILY ORAL 03/02/18 09:00 04/01/18 08:59 03/02/18 09:13 Clonidine HCl (Catapres Tab) 0.1 mg EVERY 6 HOURS PRN ORAL SBP>175 03/01/18 22:30 03/31/18 22:29 Dextrose/Sodium Chloride 1,000 ml @ 80 mls/hr [id number] IV 03/01/18 22:30 03/31/18 22:29 03/02/18 11:31 Hydrochlorothiazide (Hydrodiuril) 12.5 mg DAILY ORAL 03/02/18 09:00 04/01/18 08:59 03/02/18 09:14 Irbesartan (Avapro) 75 mg DAILY ORAL 03/02/18 09:00 04/01/18 08:59 03/02/18 09:13 Ondansetron HCl (Zofran) 4 mg Q6H PRN IVP Nausea & Vomiting 03/01/18 22:30 03/31/18 22:29 Pantoprazole (Protonix) 40 mg DAILY ORAL 03/02/18 09:00 04/01/18 08:59 03/02/18 09:13 Rifaximin (Xifaxan) 550 mg EVERY 12 HOURS ORAL 03/02/18 09:00 03/09/18 08:59 03/02/18 09:13 GI: Plan Problems: (1) Hepatic encephalopathy (2) History of CVA with residual deficit (3) Hepatitis C (4) Liver cirrhosis (5) Drug abuse (6) Anemia Plan EGD tomorrow given anemia/chronic liver disease/evaluation for esophageal varices. - ok for diet now, NPO @ AK. - hold all blood thinners. macrocytic hyperchromic anemia >> B12/folate levels normal abdominal U/S reviewed on past admission >> Suspected chronic liver disease/ cirrhosis. Hepatitis C >> will require outpatient work up and treatment elevated AST >> patient on statin, current use ETOH >> trend elevated ammonia levels >> lactulose + xifaxan ppi fu labs ETOH cessation education given to patient Discussed with Dr. Bourne. Thank you for this patient referral, we will follow. The patient was seen and examined at bedside and all new and available data was reviewed in the patients chart. I agree with the above findings, impression and plan. (Patient seen earlier today. Signature stamp does not reflect patient encounter time.). - MD Magi Alberts AnhKathy DSOUZA March 02, 2018 14:11
--- NOTE | 2018-03-02 14:25 | Cardiology Report ---
APPROVED REPORT EKG Measurement Heart [id number] Normal sinus rhythm Minimal voltage criteria for LVH, may be normal variant T wave abnormality, consider inferior ischemia T wave abnormality, consider anterolateral ischemia Prolonged QT Abnormal ECG
[2018-03-02] MEDS ORDERED: D5NS 1000ml IV ONE (15:20)
[2018-03-02 16:00] VITALS: BP 157/76
--- NOTE | 2018-03-02 18:26 | Consultation ---
Consult Note Consult Note DATE OF CONSULTATION: 03/02/2018 NEUROLOGY CONSULTATION CONSULTING PHYSICIAN: Aric Rouse M.D. REQUESTING PHYSICIAN: Isabel Dangelo M.D. HISTORY: Mr. Cy Grewal is a 62-year-old, right-handed, black gentleman, who does have a past history of hypertension, diabetes mellitus, dyslipidemia, hepatitis, strokes, headaches, and a psychiatric illness. He was last hospitalized in January 2018 for behaving in an inappropriate manner and was rolling around on the ground. At that time he had renal failure, an encephalopathy, a non-ST elevation myocardial infarction, and an acute right brain stroke. He was discharged and says he was living on the streets and was re-admitted on 03/01/18 for an altered mental state. This consultation was requested to evaluate the patient for his altered mental state. Mr. Grewal feels that his mind is clear at this point in time. He says that he is having more problems with walking. He is unable to tell me if one side is weaker than the other. He denies any problems with his vision, problems understanding language, or other neurological symptoms. PAST MEDICAL HISTORY: Significant for hypertension, diabetes mellitus, dyslipidemia, hepatitis, strokes, headaches, and a psychiatric illness. FAMILY HISTORY: Nothing significant as per the patient. PERSONAL HISTORY: Home: He is homeless and lives on the streets. 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 Habits: He smokes approximately half a pack of cigarettes per day and has been smoking for numerous years. He used to drink in the past, but stopped drinking numerous years ago. He used to use multiple drugs in the past, but has stopped using them for many years. PHYSICAL EXAMINATION: GENERAL: He is a well-developed, well-nourished, pleasant black gentleman, lying in bed, in no acute distress. VITAL SIGNS: Pulse 58 per minute, blood pressure 157/76 mmHg, respirations 18 per minute, and temperature 97.5 degrees Fahrenheit. HEAD: Normocephalic and atraumatic. NECK: No neck rigidity was observed. EENT: Examination benign. NEUROLOGIC EXAMINATION: MENTAL STATUS EXAMINATION: He was awake and alert. He was oriented to [facility], [facility], and February 2018. He did not know the year. He was able to recall 3/3 words immediately, but could only remember 2/3 words in 1 minute and 3 minutes. He was able to remember presidents, Trump and Obama, but could not remember presidents prior to that. His mathematical skills were impaired. His visuospatial function was also impaired. SPEECH: He had a mild dysarthria, but it should be noted that he was edentulous. LANGUAGE: He had anomia for low and mid frequency words. CRANIAL NERVE EXAMINATION: II: The visual hayes were intact to confrontation testing. III, IV & : The external ocular movements were full and the pupils 3 mm in diameter, equal, round, regular, and reactive to light. V: He had normal facial sensations and the temporales, masseters, and pterygoids functioned normally. VII: He had left seventh central facial paresis. VIII: He was able to hear well bilaterally and had no nystagmus. IX: The palate moved symmetrically on phonation. X: He had no hoarseness of voice. XI: The sternocleidomastoids and trapezii functioned normally. XII: The tongue was in the midline without any fasciculations or atrophy. MOTOR SYSTEM: The tone was minimally increased in both lower extremities with a mild degree of spasticity. Examination of muscle mass revealed generalized muscle wasting. Examination of power revealed G 5/5 power in the right upper extremity. G 5-/5 in the left upper extremity except for G 4/5 in the deltoid, biceps and triceps and G 4-/5 in the wrist extensors and finger extensors. In the lower extremities he had G 5-/5 except for G 4/5 in the right iliopsoas, G 3/5 in the left iliopsoas, G 4+/5 in the ankle dorsiflexors and toe extensors bilaterally. SENSORY EXAMINATION: He had intact sensations to pinprick and light touch, but complained of a subjective alteration over his entire left body. REFLEXES: 1+ on the right and 1++ on the left at the biceps, triceps, brachioradialis, and knees, 0 at both ankles. The plantar responses were flexor bilaterally. STANCE & GAIT: Could not be tested as he felt that his legs would not carry him. DIAGNOSTIC IMPRESSION: 1. Mr. Cy Grewal is a 62-year-old, right-handed, black gentleman, with a past history of hypertension, diabetes mellitus, dyslipidemia, hepatitis, strokes, headaches, and a psychiatric illness, who was brought in for an altered mental state. 2. On neurological examination, at this time, he does have problems with orientation, recent and remote memory, visuospatial function, higher cognitive function, and language. He also has a definite dysarthria, a left seventh central facial paresis, left greater than right quadriparesis, with globally diminished reflexes that are slightly brisker on the left than on the right, decreased sensations over his left body and inability to walk due to bilateral lower extremity weakness. 3. The CT scan of the brain without contrast done on 03/01/18 revealed no acute intracranial bleed, mass effect or edema. Mild atrophy of the brain. Nonspecific white matter disease due to chronic small vessel disease. 4. Laboratory data revealed that he was anemic with a hemoglobin of 9.7. His chemistry panel revealed that his creatinine was elevated to 1.5. In addition, he also had hyperammonemia with an ammonia of 116. His pro-BNP was elevated at 391. 5. The patient's history, neurological examination, CT scan findings, and laboratory data are most compatible with a multifactorial encephalopathy, most probably related to his underlying structural brain disease with super-added electrolyte imbalances and hyperammonemia. 6. He also has a left greater than right paresis has worsened since his last hospitalization, which may be related to a new cerebrovascular event. RECOMMENDATIONS: 1. Agree with management thus far. 2. Would continue aspirin 81 mg daily for now. 3. The patient's blood pressure, blood sugar, and lipids should be controlled. 4. His hyperammonemia should be corrected. 5. An MRI scan of the brain will be ordered to evaluate the patient for acute intracranial pathology. 6. He should be started on a course of physical, occupational, and speech and language therapy. 7. The patient will be observed closely and depending on how he fares over the next day or so, further recommendations will be given. Thank you for entrusting me with the care of Mr. Grewal. I shall follow him with you. Aric Rouse M.D., ARIC MURILLO March 02, 2018 18:26
[2018-03-02 20:00] VITALS: BP 137/67
[2018-03-03] VITALS: BP 132/65
[2018-03-03 04:00] VITALS: BP 121/60
[2018-03-03] MEDS ORDERED: fentaNYL 100 mcg/2 mL IV PRN (07:15)
[2018-03-03] MEDS ORDERED: Midazolam 2mg/2ml Inj IVP PRN (07:15)
[2018-03-03] MEDS ORDERED: Atropine Inj 1mg/10ml Syr IV PRN (07:15)
[2018-03-03] MEDS ORDERED: DiphenhydrAMINE 50mg/ml Inj IVP PRN (07:15)
--- NOTE | 2018-03-03 07:18 | Anethesia Preoperative Eval ---
Anesthesia Pre-op PMH/ROS General Date of Evaluation: March 03, 2018 Time of Evaluation: 07:05 Anesthesiologist: jamshid ASA Score: ASA 4 Mallampati Score Class I : Soft palate, uvula, fauces, pillars visible Class II: Soft palate, uvula, fauces visible Class III: Soft palate, base of uvula visible Class IV: Only hard plate visible Mallampati Classification: Class II Surgeon: marlo Surgical Procedure: egd Anesthesia History: none Social History: drug use Family History: no anesthesia problems Allergies: Coded Allergies: PENICILLINS (Verified Allergy, Unknown, 02/10/17) UNABLE TO ASSESS (Unverified , 03/01/18) Medications: see eMAR Past Medical History Cardiovascular: Reports: HTN Pulmonary: Denies: asthma, COPD, ED, other Gastrointestinal/Genitourinary: Reports: ESRD, other - cirrhosis, hep c, Neurologic/Psychiatric: Reports: CVA, other - ams, encephalopathy, head trauma Endocrine: Reports: DM HEENT: Denies: cataract (L), cataract (R), glaucoma, BEAVER (L), BEAVER (R), other Anesthesia Pre-op Phys. Exam Physician Exam Last Vital Signs Date Time Temp Pulse Resp B/P (MAP) Pulse Ox O2 Delivery O2 Flow Rate FiO2 03/03/18 04:00 97.6 65 20 121/60 96 Room Air 97.6 Constitutional: NAD Neurologic: CN 2-12 intact Cardiovascular: RRR Respiratory: CTA Gastrointestinal: S/NT/ND Airway Exam Mallampati Score: Class II MO: limited Neck: decreased rom to lateral rotation TMD: 2fb ROM: limited Teeth: missing Anesthesia Pre-op A/P Labs Hematology Test 03/02/18 09:20 White Blood Count 3.6 K/UL (4.8-10.8) L Red Blood Count 3.09 M/UL (4.70-6.10) L Hemoglobin 10.5 G/DL (14.2-18.0) L Hematocrit 30.4 % (42.0-52.0) L Mean Corpuscular Volume 98 FL (80-99) Mean Corpuscular Hemoglobin 34.0 PG (27.0-31.0) H Mean Corpuscular Hemoglobin Concent 34.5 G/DL (32.0-36.0) Red Cell Distribution Width 12.3 % (11.6-14.8) Platelet Count 88 K/UL (150-450) L Mean Platelet Volume 7.8 FL (6.5-10.1) Neutrophils (%) (Auto) % (45.0-75.0) Lymphocytes (%) (Auto) % (20.0-45.0) Monocytes (%) (Auto) % (1.0-10.0) Eosinophils (%) (Auto) % (0.0-3.0) Basophils (%) (Auto) % (0.0-2.0) Differential Total Cells Counted 100 Neutrophils % (Manual) 20 % (45-75) L Lymphocytes % (Manual) 64 % (20-45) H Monocytes % (Manual) 12 % (1-10) H Eosinophils % (Manual) 4 % (0-3) H Basophils % (Manual) 0 % (0-2) Band Neutrophils 0 % (0-8) Platelet Estimate Decreased L Platelet Morphology Normal Hypochromasia 1+ Anisocytosis 1+ Chemistry Test 03/02/18 09:20 Troponin I 0.029 ng/mL (0.000-0.056) Pro-B-Type Natriuretic Peptide 391 pg/mL (0-125) H Risk Assessment & Plan Assessment: [email or web address] Plan: mac Status Change Before Surgery: No Pre-Antibiotics Drug: Lizabeth Starkey MD March 03, 2018 07:18
[2018-03-03 08:00] VITALS: BP 145/70
[2018-03-03 08:03] LABS: HEMATOCRIT 29.3 % (42.0-52.0); HEMOGLOBIN 9.9 G/DL (14.2-18.0); MEAN CORPUSCULAR VOLUME 100 FL (80-99); PLATELET COUNT 82 K/UL (150-450); RED BLOOD COUNT 2.93 M/UL (4.70-6.10); RED CELL DISTRIBUTION WIDTH 12.2 % (11.6-14.8); WHITE BLOOD COUNT 4.4 K/UL (4.8-10.8)
[2018-03-03 08:04] LABS: INR 1.3 (0.9-1.1)
[2018-03-03 08:08] LABS: ANION GAP 8 mmol/L (5-15); BLOOD UREA NITROGEN 17 mg/dL (7-18); CALCIUM 8.6 MG/DL (8.5-10.1); CARBON DIOXIDE 26 MMOL/L (21-32); CHLORIDE 109 MMOL/L (98-107); CREATININE 1.3 MG/DL (0.55-1.30); POTASSIUM 3.7 MMOL/L (3.5-5.1); SODIUM 143 MMOL/L (136-145)
[2018-03-03] MEDS: hydroCHLOROthiazide 12.5mg TAB ORAL SCH (08:42)
[2018-03-03 08:43] LABS: AMMONIA 138 umol/L (11-32)
[2018-03-03] MEDS: Atenolol 25mg tab ORAL SCH (08:43)
[2018-03-03] MEDS: Aspirin Baby 81mg NG SCH (08:43)
--- NOTE | 2018-03-03 09:30 | Diagnostic Imaging Report ---
APPROVED REPORT CPT Code: 62107 Present Symptoms Comments: BILATERAL LEGS PAIN. BILATERAL: Imaging reveals a patent deep venous system bilaterally. There is no evidence of thrombus within the femoral, popliteal or tibial segments. The greater saphenous veins are also within normal limits. Doppler indicates normal spontaneous flow within these segments.
--- NOTE | 2018-03-03 09:42 | General Progress Note ---
Assessment/Plan Status: stable Assessment/Plan S: patient is drowsy O: appears comfortable, Denies pain . AOX1 PHYSICAL EXAMINATION: HEAD AND NECK: Atraumatic and normocephalic. CHEST: Clear to auscultation. No wheeze, no crackles. ABDOMEN: Soft. fullness, MUSCULOSKELETAL: Atrophied musculature, spontaneous movement of all 4 extremities.NEUROLOGIC: Awake, alert, oriented x1. ASSESSMENT AND PLAN: 1. Acute on chronic encephalopathy, multifactorial. 2. 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 Anemia. 3. Liver cirrhosis 4. Chronic renal failure- at his base line 5. Hyperlipidemia. 6. Gastrointestinal and deep vein thrombosis prophylaxes. PLAN OF CARE: Pending Brain MRI current management Subjective Allergies: Coded Allergies: PENICILLINS (Verified Allergy, Unknown, 02/10/17) UNABLE TO ASSESS (Unverified , 03/01/18) Objective Last 24 Hour Vital Signs Date Time Temp Pulse Resp B/P (MAP) Pulse Ox O2 Delivery O2 Flow Rate FiO2 03/03/18 08:43 145/70 03/03/18 08:43 56 145/70 03/03/18 04:00 97.6 65 20 121/60 96 Room Air 97.6 03/03/18 04:00 58 03/03/18 00:00 61 03/03/18 00:00 96.8 63 20 132/65 98 Room Air 96.8 03/02/18 20:00 97.5 66 19 137/67 98 Room Air 97.5 03/02/18 20:00 77 03/02/18 16:00 97.5 58 18 157/76 100 Room Air 97.5 03/02/18 16:00 58 03/02/18 12:00 50 03/02/18 12:00 97.6 55 19 149/85 100 Room Air 97.6 Intake and Output 03/02/18 03/03/18 19:00 07:00 Intake Total 1280 ml 953 ml Balance 1280 ml 953 ml Intake Oral 1280 ml IV Total 953 ml # Voids 4 2 Laboratory Tests 03/03/18 05:35: White Blood Count 4.4L, Red Blood Count 2.93L, Hemoglobin 9.9L, Hematocrit 29.3L , Mean Corpuscular Volume 100H, Mean Corpuscular Hemoglobin 34.0H, Mean Corpuscular Hemoglobin Concent 34.0, Red Cell Distribution Width 12.2, Platelet Count 82L, Mean Platelet Volume 8.1, Neutrophils (%) (Auto) , Lymphocytes (%) ( Auto) , Monocytes (%) (Auto) , Eosinophils (%) (Auto) , Basophils (%) (Auto) , Differential Total Cells Counted 100, Neutrophils % (Manual) 14L, Lymphocytes % (Manual) 76H, Monocytes % (Manual) 8, Eosinophils % (Manual) 1, Basophils % ( Manual) 1, Band Neutrophils 0, Platelet Estimate DecreasedL, Platelet Morphology Normal, Hypochromasia 2+, Anisocytosis 1+, Spherocytes 2+, Prothrombin Time 13.2H, Prothromb Time International Ratio 1.3H, Activated Partial Thromboplast Time 37H, Sodium Level 143, Potassium Level 3.7, Chloride Level 109H, Carbon Dioxide Level 26, Anion Gap 8, Blood Urea Nitrogen 17, Creatinine 1.3, Estimat Glomerular Filtration Rate > 60, Glucose Level 85, Calcium Level 8.6, Ammonia 138H, Troponin I 0.027, Pro-B-Type Natriuretic Peptide 378H Height (Feet): 6 Height (Inches): 1.00 Weight (Pounds): 212 Isabel Dangelo MD March 03, 2018 09:42
--- NOTE | 2018-03-03 09:52 | Pre-Procedure Note/Attestation ---
Pre-Procedure Note/Attestation Complete Prior to Procedure Planned Procedure: not applicable Procedure Narrative: egd Indications for Procedure Pre-Operative Diagnosis: gib Attestation I attest that I discussed the nature of the procedure; its benefits; risks and complications; and alternatives (and the risks and benefits of such alternatives ), prior to the procedure, with the patient (or the patient's legal community representative). I attest that, if there was a reasonable possibility of needing a blood transfusion, the patient (or the patient's legal community representative) was given the [facility] standardized written summary, pursuant to the Ronald Dario Blood Safety Act ([place] Health and Safety Code # 1645, as amended). I attest that I re-evaluated the patient just prior to the surgery and that there has been no change in the patient's H&P, except as documented below: Bert Bourne MD March 03, 2018 09:52
--- NOTE | 2018-03-03 11:17 | Diagnostic Imaging Report ---
Indication: Altered mental status Technique: The head was imaged in a 1.5 Marj magnet. Sequences obtained include sagittal and axial T1 FLAIR, axial T2 fast spin echo with fat saturation, axial T2 FLAIR, diffusion and ADC map. Comparison: 02/01/2018 Previous acute CVA in the right anterior insular cortex is noted on the prior study from 02/01/2018. Currently, there is no diffusion restriction to suggest acute CVA. There is a cystic foci in bilateral thalamus, left anterior corpus callosum, raising ganglia and morales radiata consistent with an old lacunar infarcts. There is susceptibility artifact associated with gyral atrophy within left insula consistent with an old infarct. Low signal may be employee relations representative of hemosiderin (old bleed) or dystrophic calcification or laminar necrosis. There is generalized atrophy of the brain. There is fairly extensive confluent white matter T2 hyperintensity likely due to chronic small vessel disease. There is breathing motion which limits evaluation. The sella and corpus callosum appear unremarkable. Osseous bone marrow signal appears normal. IMPRESSION: No acute CVA identified. No mass effect, edema or acute hemorrhage identified. Evidence of chronic small vessel disease with multifocal, old lacunar infarcts and white matter chronic ischemic changes. Old left insular region infarct. Relatively recent infarct (from 02/01/2018) involving anterior right insula no longer visualized. Generalized atrophy of the brain Motion artifacts
--- NOTE | 2018-03-03 11:43 | General Progress Note ---
Assessment/Plan Problem List: (1) Hepatitis C ICD Codes: B19.20 - Unspecified viral hepatitis C without hepatic coma SNOMED: 42321775 (2) Liver cirrhosis ICD Codes: K74.60 - Unspecified cirrhosis of liver SNOMED: 12919432 (3) Anemia ICD Codes: D64.9 - Anemia, unspecified SNOMED: 038543274 (4) Drug abuse ICD Codes: F19.10 - Other psychoactive substance abuse, uncomplicated SNOMED: 66894724 (5) Hepatic encephalopathy ICD Codes: K72.90 - Hepatic failure, unspecified without coma SNOMED: 22019189 (6) History of CVA with residual deficit ICD Codes: I69.30 - Unspecified sequelae of cerebral infarction SNOMED: 403321513 Assessment/Plan plan PICC line and EGD in am anemia work up repeat ammonia levels dc ASA add lactulose Subjective ROS Limited/Unobtainable: Yes Allergies: Coded Allergies: PENICILLINS (Verified Allergy, Unknown, 02/10/17) UNABLE TO ASSESS (Unverified , 03/01/18) Subjective EGD was canceled due to no IV line Objective Last 24 Hour Vital Signs Date Time Temp Pulse Resp B/P (MAP) Pulse Ox O2 Delivery O2 Flow Rate FiO2 03/03/18 08:43 145/70 03/03/18 08:43 56 145/70 03/03/18 08:00 98.0 56 20 145/70 98 Room Air 98.0 03/03/18 04:00 97.6 65 20 121/60 96 Room Air 97.6 03/03/18 04:00 58 03/03/18 00:00 61 03/03/18 00:00 96.8 63 20 132/65 98 Room Air 96.8 03/02/18 20:00 97.5 66 19 137/67 98 Room Air 97.5 03/02/18 20:00 77 03/02/18 16:00 97.5 58 18 157/76 100 Room Air 97.5 03/02/18 16:00 58 03/02/18 12:00 50 03/02/18 12:00 97.6 55 19 149/85 100 Room Air 97.6 Intake and Output 03/02/18 03/03/18 19:00 07:00 Intake Total 1280 ml 953 ml Balance 1280 ml 953 ml Intake Oral 1280 ml IV Total 953 ml # Voids 4 2 Laboratory Tests 03/03/18 05:35: White Blood Count 4.4L, Red Blood Count 2.93L, Hemoglobin 9.9L, Hematocrit 29.3L , Mean Corpuscular Volume 100H, Mean Corpuscular Hemoglobin 34.0H, Mean Corpuscular Hemoglobin Concent 34.0, Red Cell Distribution Width 12.2, Platelet Count 82L, Mean Platelet Volume 8.1, Neutrophils (%) (Auto) , Lymphocytes (%) ( Auto) , Monocytes (%) (Auto) , Eosinophils (%) (Auto) , Basophils (%) (Auto) , Differential Total Cells Counted 100, Neutrophils % (Manual) 14L, Lymphocytes % (Manual) 76H, Monocytes % (Manual) 8, Eosinophils % (Manual) 1, Basophils % ( Manual) 1, Band Neutrophils 0, Platelet Estimate DecreasedL, Platelet Morphology Normal, Hypochromasia 2+, Anisocytosis 1+, Spherocytes 2+, Prothrombin Time 13.2H, Prothromb Time International Ratio 1.3H, Activated Partial Thromboplast Time 37H, Sodium Level 143, Potassium Level 3.7, Chloride Level 109H, Carbon Dioxide Level 26, Anion Gap 8, Blood Urea Nitrogen 17, Creatinine 1.3, Estimat Glomerular Filtration Rate > 60, Glucose Level 85, Calcium Level 8.6, Ammonia 138H, Troponin I 0.027, Pro-B-Type Natriuretic Peptide 378H Height (Feet): 6 Height (Inches): 1.00 Weight (Pounds): 212 General Appearance: alert EENT: normal ENT inspection Neck: supple Cardiovascular: normal rate Respiratory/Chest: lungs clear Abdomen: normal bowel sounds, non tender, soft Extremities: non-tender Bert Bourne MD March 03, 2018 11:43
[2018-03-03 12:00] VITALS: BP 160/73
[2018-03-03] MEDS: D5NS 1,000 ML IV SCH (12:00)
[2018-03-03] MEDS ORDERED: Lidocaine 1% Plain 30 ml INJ PRN (12:45)
[2018-03-03] MEDS: Lactulose 20gm/30ml UDC ORAL SCH ×2 (12:45→17:17)
[2018-03-03] MEDS ORDERED: Heparin 2000 units/Ns 1000ml INJ PRN (12:45)
--- NOTE | 2018-03-03 15:48 | Neurology Progress Note ---
Interim History Interim History Interim History Mr. Grewal feels about the same as yesterday. He slept well last night. His appetite is good. He has not been out of bed. He has had no physical therapy. He continues to be cognitively impoverished. He continues to be generally weak but the left side is weaker. He denies any new neurologic symptoms. Review of Systems Neuro Review of Systems Benign. Objective Physical Exam Last Vital Signs Date Time Temp Pulse Resp B/P (MAP) Pulse Ox O2 Delivery O2 Flow Rate FiO2 03/03/18 12:00 51 03/03/18 12:00 96.8 20 160/73 99 Room Air 96.8 Laboratory Tests Test 03/03/18 05:35 White Blood Count 4.4 K/UL (4.8-10.8) L Red Blood Count 2.93 M/UL (4.70-6.10) L Hemoglobin 9.9 G/DL (14.2-18.0) L Hematocrit 29.3 % (42.0-52.0) L Mean Corpuscular Volume 100 FL (80-99) H Mean Corpuscular Hemoglobin 34.0 PG (27.0-31.0) H Mean Corpuscular Hemoglobin Concent 34.0 G/DL (32.0-36.0) Red Cell Distribution Width 12.2 % (11.6-14.8) Platelet Count 82 K/UL (150-450) L Mean Platelet Volume 8.1 FL (6.5-10.1) Neutrophils (%) (Auto) % (45.0-75.0) Lymphocytes (%) (Auto) % (20.0-45.0) Monocytes (%) (Auto) % (1.0-10.0) Eosinophils (%) (Auto) % (0.0-3.0) Basophils (%) (Auto) % (0.0-2.0) Differential Total Cells Counted 100 Neutrophils % (Manual) 14 % (45-75) L Lymphocytes % (Manual) 76 % (20-45) H Monocytes % (Manual) 8 % (1-10) Eosinophils % (Manual) 1 % (0-3) Basophils % (Manual) 1 % (0-2) Band Neutrophils 0 % (0-8) Platelet Estimate Decreased L Platelet Morphology Normal Hypochromasia 2+ Anisocytosis 1+ Spherocytes 2+ Prothrombin Time 13.2 SEC (9.30-11.50) H Prothromb Time International Ratio 1.3 (0.9-1.1) H Activated Partial Thromboplast Time 37 SEC (23-33) H Sodium Level 143 MMOL/L (136-145) Potassium Level 3.7 MMOL/L (3.5-5.1) Chloride Level 109 MMOL/L (98-107) H Carbon Dioxide Level 26 MMOL/L (21-32) Anion Gap 8 mmol/L (5-15) Blood Urea Nitrogen 17 mg/dL (7-18) Creatinine 1.3 MG/DL (0.55-1.30) Estimat Glomerular Filtration Rate > 60 mL/min (>60) Glucose Level 85 MG/DL (74-106) Calcium Level 8.6 MG/DL (8.5-10.1) Ammonia 138 umol/L (11-32) H Troponin I 0.027 ng/mL (0.000-0.056) Pro-B-Type Natriuretic Peptide 378 pg/mL (0-125) H Neurologic Exam Objective PHYSICAL EXAMINATION: GENERAL: He is a well-developed, well-nourished, pleasant black gentleman, lying in bed, in no acute distress. HEAD: Normocephalic and atraumatic. NECK: No neck rigidity was observed. EENT: Examination benign. NEUROLOGIC EXAMINATION: MENTAL STATUS EXAMINATION: He was awake and alert. He was oriented to [facility], [facility], and February 2018. He did not know the year. He was able to recall 3/3 words immediately, but could only remember 2/3 words in 1 minute and 3 minutes. He was able to remember presidents, Trump and Obama, but could not remember presidents prior to that. His mathematical skills were impaired. His visuospatial function was also impaired. SPEECH: He had a mild dysarthria, but it should be noted that he was edentulous. LANGUAGE: He had anomia for low and mid frequency words. CRANIAL NERVE EXAMINATION: II: The visual hayes were intact to confrontation testing. III, IV & : The external ocular movements were full and the pupils 3 mm in diameter, equal, round, regular, and reactive to light. V: He had normal facial sensations and the temporales, masseters, and pterygoids functioned normally. VII: He had left seventh central facial paresis. VIII: He was able to hear well bilaterally and had no nystagmus. IX: The palate moved symmetrically on phonation. X: He had no hoarseness of voice. XI: The sternocleidomastoids and trapezii functioned normally. XII: The tongue was in the midline without any fasciculations or atrophy. MOTOR SYSTEM: The tone was minimally increased in both lower extremities with a mild degree of spasticity. Examination of muscle mass revealed generalized muscle wasting. Examination of power revealed G 5/5 power in the right upper extremity. G 5-/5 in the left upper extremity except for G 4/5 in the deltoid, biceps and triceps and G 4-/5 in the wrist extensors and finger extensors. In the lower extremities he had G 5-/5 except for G 4/5 in the right iliopsoas, G 3 /5 in the left iliopsoas, G 4+/5 in the ankle dorsiflexors and toe extensors bilaterally. SENSORY EXAMINATION: He had intact sensations to pinprick and light touch, but complained of a subjective alteration over his entire left body. REFLEXES: 1+ on the right and 1++ on the left at the biceps, triceps, brachioradialis, and knees, 0 at both ankles. The plantar responses were flexor bilaterally. STANCE & GAIT: Could not be tested as he felt that his legs would not carry him. Impression/Recommendations Diagnostic Impression 1. Mr. Cy Grewal is a 62-year-old, right-handed, black gentleman, with a past history of hypertension, diabetes mellitus, dyslipidemia, hepatitis, strokes, headaches, and a psychiatric illness, who was brought in for an altered mental state. 2. He feels about the same as yesterday. He slept well last night. His appetite is good. He has not been out of bed. He has had no physical therapy. He continues to be cognitively impoverished. He continues to be generally weak but the left side is weaker. He denies any new neurologic symptoms. 3. On neurological examination, at this time, he does have problems with orientation, recent and remote memory, visuospatial function, higher cognitive function, and language. He also has a definite dysarthria, a left seventh central facial paresis, left greater than right quadriparesis, with globally diminished reflexes that are slightly brisker on the left than on the right, decreased sensations over his left body and inability to walk due to bilateral lower extremity weakness. 4. The CT scan of the brain without contrast done on 03/01/18 revealed no acute intracranial bleed, mass effect or edema. Mild atrophy of the brain. Nonspecific white matter disease due to chronic small vessel disease. 5. The MRI of the brain done on 03/03/18 revealed: No acute stroke. No mass effect, edema or acute hemorrhage identified. Evidence of chronic small vessel disease with multifocal, old lacunar infarcts and white matter chronic ischemic changes. Old left insular region infarct. Generalized atrophy. 6. Laboratory data revealed that he was anemic with a hemoglobin of 9.7. His chemistry panel revealed that his creatinine was elevated to 1.5. In addition, he also had hyperammonemia with an ammonia of 116. His pro-BNP was elevated at 391. 7. The patient's history, neurological examination, CT scan findings, and laboratory data are most compatible with a multifactorial encephalopathy, most probably related to his underlying structural brain disease with super-added electrolyte imbalances and hyperammonemia. 8. He also has a left greater than right paresis that has worsened since his last hospitalization, fortunately it is not due to a new cerebrovascular event. Recommendations 1. Continue present management. 2. Continue aspirin 81 mg daily for now. 3. The patient's blood pressure, blood sugar, and lipids should be controlled. 4. His hyperammonemia should be corrected. 5. He should be started on a course of physical, occupational, and speech and language therapy. 6. Observed closely. Aric Rouse M.D., M.S.P.ARIC HAMMER March 03, 2018 15:48
[2018-03-03 16:00] VITALS: BP 166/82
[2018-03-03] MEDS ORDERED: D5NS 1000ml IV ONE (19:53)
[2018-03-03 20:00] VITALS: BP 142/87
[2018-03-03] MEDS: Dyna-Hex 2% Top Sol 2oz TOPIC SCH (20:00)
--- NOTE | 2018-03-03 23:53 | Cardiology Progress Note ---
Assessment/Plan Assessment/Plan 1. Sinus tachycardia, treat the underlying disease. 2. Recent hx of NSTEMI, 2D echo reveals normal LV systolic function. Continue ASA and B-blockers. 3. CVA, continue ASA and statins. 4. HTN, continue Irbesartan. Subjective Subjective Sinus bradycardia at 59. Objective Last 24 Hour Vital Signs Date Time Temp Pulse Resp B/P (MAP) Pulse Ox O2 Delivery O2 Flow Rate FiO2 03/03/18 20:00 57 03/03/18 20:00 97.7 59 20 142/87 97 Room Air 97.7 03/03/18 16:00 97.0 54 19 166/82 97 Room Air 97.0 03/03/18 16:00 58 03/03/18 12:00 51 03/03/18 12:00 96.8 54 20 160/73 99 Room Air 96.8 03/03/18 08:43 145/70 03/03/18 08:43 56 145/70 03/03/18 08:00 98.0 56 20 145/70 98 Room Air 98.0 03/03/18 08:00 54 03/03/18 04:00 97.6 65 20 121/60 96 Room Air 97.6 03/03/18 04:00 58 03/03/18 00:00 61 03/03/18 00:00 96.8 63 20 132/65 98 Room Air 96.8 Intake and Output 03/02/18 03/03/18 19:00 07:00 Intake Total 1280 ml 953 ml Balance 1280 ml 953 ml Intake Oral 1280 ml IV Total 953 ml # Voids 4 2 2D Echo: EF 60%, RVSP 42 mmHg, Mild LVH, RAP 20 mmHg Laboratory Tests Test 03/03/18 05:35 White Blood Count 4.4 K/UL (4.8-10.8) L Red Blood Count 2.93 M/UL (4.70-6.10) L Hemoglobin 9.9 G/DL (14.2-18.0) L Hematocrit 29.3 % (42.0-52.0) L Mean Corpuscular Volume 100 FL (80-99) H Mean Corpuscular Hemoglobin 34.0 PG (27.0-31.0) H Mean Corpuscular Hemoglobin Concent 34.0 G/DL (32.0-36.0) Red Cell Distribution Width 12.2 % (11.6-14.8) Platelet Count 82 K/UL (150-450) L Mean Platelet Volume 8.1 FL (6.5-10.1) Neutrophils (%) (Auto) % (45.0-75.0) Lymphocytes (%) (Auto) % (20.0-45.0) Monocytes (%) (Auto) % (1.0-10.0) Eosinophils (%) (Auto) % (0.0-3.0) Basophils (%) (Auto) % (0.0-2.0) Differential Total Cells Counted 100 Neutrophils % (Manual) 14 % (45-75) L Lymphocytes % (Manual) 76 % (20-45) H Monocytes % (Manual) 8 % (1-10) Eosinophils % (Manual) 1 % (0-3) Basophils % (Manual) 1 % (0-2) Band Neutrophils 0 % (0-8) Platelet Estimate Decreased L Platelet Morphology Normal Hypochromasia 2+ Anisocytosis 1+ Spherocytes 2+ Prothrombin Time 13.2 SEC (9.30-11.50) H Prothromb Time International Ratio 1.3 (0.9-1.1) H Activated Partial Thromboplast Time 37 SEC (23-33) H Sodium Level 143 MMOL/L (136-145) Potassium Level 3.7 MMOL/L (3.5-5.1) Chloride Level 109 MMOL/L (98-107) H Carbon Dioxide Level 26 MMOL/L (21-32) Anion Gap 8 mmol/L (5-15) Blood Urea Nitrogen 17 mg/dL (7-18) Creatinine 1.3 MG/DL (0.55-1.30) Estimat Glomerular Filtration Rate > 60 mL/min (>60) Glucose Level 85 MG/DL (74-106) Calcium Level 8.6 MG/DL (8.5-10.1) Ammonia 138 umol/L (11-32) H Troponin I 0.027 ng/mL (0.000-0.056) Pro-B-Type Natriuretic Peptide 378 pg/mL (0-125) H Objective HEAD AND NECK: Atraumatic, normocephalic, PERRLA, EOMI. NECK: Showed no JVD. No carotid bruit. LUNGS: Coarse rhonchi. CARDIOVASCULAR: Shows regular, normal S1 and S2 with no gallops, rubs or murmurs. ABDOMEN: Soft, NT/ND, + hepatosplenomegaly. EXTREMITIES: A 1+ pitting edema. Groevr Malcolm MD March 03, 2018 23:53
[2018-03-04] VITALS (9 sets, daily range): BP systolic 125–162; BP diastolic 61–91
[2018-03-04] MEDS: D5NS 1,000 ML IV SCH ×2 (00:30→12:51)
[2018-03-04] MEDS ORDERED: Atropine Inj 1mg/10ml Syr IV PRN (07:45)
[2018-03-04] MEDS ORDERED: DiphenhydrAMINE 50mg/ml Inj IVP PRN (07:45)
[2018-03-04] MEDS ORDERED: Midazolam 2mg/2ml Inj IVP PRN (07:45)
[2018-03-04] MEDS ORDERED: fentaNYL 100 mcg/2 mL IV PRN (07:45)
[2018-03-04] MEDS: hydroCHLOROthiazide 12.5mg TAB ORAL SCH (08:25)
[2018-03-04] MEDS: Atenolol 25mg tab ORAL SCH (08:26)
[2018-03-04] MEDS: Lactulose 20gm/30ml UDC ORAL SCH ×3 (09:00→17:27)
[2018-03-04 09:11] LABS: HEMATOCRIT 29.9 % (42.0-52.0); HEMOGLOBIN 10.5 G/DL (14.2-18.0); MEAN CORPUSCULAR VOLUME 99 FL (80-99); PLATELET COUNT 84 K/UL (150-450); RED BLOOD COUNT 3.03 M/UL (4.70-6.10); WHITE BLOOD COUNT 3.6 K/UL (4.8-10.8)
[2018-03-04 09:23] LABS: INR 1.2 (0.9-1.1)
[2018-03-04 09:29] LABS: ALANINE AMINOTRANSFERASE 72 U/L (12-78); ALBUMIN 2.3 G/DL (3.4-5.0); ALBUMIN/GLOBULIN RATIO 0.5 (1.0-2.7); ALKALINE PHOSPHATASE 92 U/L (46-116); ANION GAP 6 mmol/L (5-15); ASPARTATE AMINO TRANSFERASE 113 U/L (15-37); BILIRUBIN,TOTAL 0.5 MG/DL (0.2-1.0); BLOOD UREA NITROGEN 16 mg/dL (7-18); CALCIUM 8.3 MG/DL (8.5-10.1); CARBON DIOXIDE 29 MMOL/L (21-32); CHLORIDE 106 MMOL/L (98-107); CREATININE 1.3 MG/DL (0.55-1.30); POTASSIUM 3.6 MMOL/L (3.5-5.1); SODIUM 141 MMOL/L (136-145)
[2018-03-04 09:30] LABS: % IRON SATURATION 25 % (15-50); IRON 56 ug/dL (50-175); TOTAL IRON BINDING CAPACITY 227 ug/dL (250-450)
--- NOTE | 2018-03-04 09:34 | General Progress Note ---
Assessment/Plan Assessment/Plan S: patient is awake . communicative and talking O: appears comfortable, Denies pain . AOX1 PHYSICAL EXAMINATION: HEAD AND NECK: Atraumatic and normocephalic. CHEST: Clear to auscultation. No wheeze, no crackles.Heart: S1S2 RR, sinus bradycardia ABDOMEN: Soft. fullness, MUSCULOSKELETAL: Atrophied musculature, spontaneous movement of all 4 extremities.NEUROLOGIC: Awake, alert, oriented x1. ASSESSMENT AND PLAN: 1. Acute on chronic encephalopathy, multifactorial. 2. CVA- multiple with the sub acute component in Insular Region and other chronic ones 3. Anemia. 3. Liver cirrhosis 4. Chronic renal failure- at his base line 5. Hyperlipidemia. 6. Gastrointestinal and deep vein thrombosis prophylaxes. 7. Dementia PLAN OF CARE: No acute finding in Brain MRI current management Subjective Allergies: Coded Allergies: PENICILLINS (Verified Allergy, Unknown, 02/10/17) UNABLE TO ASSESS (Unverified , 03/01/18) Objective Last 24 Hour Vital Signs Date Time Temp Pulse Resp B/P (MAP) Pulse Ox O2 Delivery O2 Flow Rate FiO2 03/04/18 08:26 55 155/80 03/04/18 08:25 155/90 03/04/18 08:00 97.5 55 20 155/80 98 Room Air 97.5 03/04/18 04:00 98.3 72 22 125/61 96 Room Air 98.3 03/04/18 04:00 56 03/04/18 00:00 97.5 57 20 138/64 96 Room Air 97.5 03/04/18 00:00 63 03/03/18 20:00 57 03/03/18 20:00 97.7 59 20 142/87 97 Room Air 97.7 03/03/18 16:00 97.0 54 19 166/82 97 Room Air 97.0 03/03/18 16:00 58 03/03/18 12:00 51 03/03/18 12:00 96.8 54 20 160/73 99 Room Air 96.8 Intake and Output 03/03/18 03/04/18 19:00 07:00 Intake Total 450 ml 480 ml Output Total 1350 ml Balance -900 ml 480 ml Intake Oral 450 ml 480 ml Output Urine Total 1350 ml # Voids 4 Laboratory Tests 03/04/18 08:40: White Blood Count 3.6L, Red Blood Count 3.03L, Hemoglobin 10.5L, Hematocrit 29.9L, Mean Corpuscular Volume 99, Mean Corpuscular Hemoglobin 34.6H, Mean Corpuscular Hemoglobin Concent 35.1, Red Cell Distribution Width 12.0, Platelet Count 84L, Mean Platelet Volume 9.4, Neutrophils (%) (Auto) , Lymphocytes (%) ( Auto) , Monocytes (%) (Auto) , Eosinophils (%) (Auto) , Basophils (%) (Auto) , Neutrophils % (Manual) [Pending], Lymphocytes % (Manual) [Pending], Platelet Estimate [Pending], Platelet Morphology [Pending], Prothrombin Time 12.9H, Prothromb Time International Ratio 1.2H, Activated Partial Thromboplast Time 37H , Sodium Level 141, Potassium Level 3.6, Chloride Level 106, Carbon Dioxide Level 29, Anion Gap 6, Blood Urea Nitrogen 16, Creatinine 1.3, Estimat Glomerular Filtration Rate > 60, Glucose Level 105, Calcium Level 8.3L, Iron Level 56, Total Iron Binding Capacity 227L, Percent Iron Saturation 25, Unsaturated Iron Binding 171, Total Bilirubin 0.5, Aspartate Amino Transf (AST/ SGOT) 113H, Alanine Aminotransferase (ALT/SGPT) 72, Alkaline Phosphatase 92, Ammonia 171H, Troponin I [Pending], Pro-B-Type Natriuretic Peptide [Pending], Total Protein 7.4, Albumin 2.3L, Globulin 5.1, Albumin/Globulin Ratio 0.5L, Carcinoembryonic Antigen [Pending] Height (Feet): 6 Height (Inches): 1.00 Weight (Pounds): 212 Isabel Dangelo MD March 04, 2018 09:34
[2018-03-04] MEDS ORDERED: Propofol 200mg/20ml IV ONE (10:30)
[2018-03-04] MEDS ORDERED: Lidocaine 1% MPF 10mg/ml 5ml ONE (10:30)
[2018-03-04] MEDS ORDERED: NS 500ML IVPB ONE (10:30)
[2018-03-04] MEDS ORDERED: NS Irrig 1000ml ONE (10:30)
--- NOTE | 2018-03-04 11:04 | Diagnostic Imaging Report ---
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 The left upper extremity was prepped with alcohol. All elements of maximal sterile barrier technique were followed including usage of a cap, mask, sterile gown, sterile gloves, hand hygiene and a large sterile sheet. Sonographic evaluation of the upper extremity was performed demonstrating a patent and compressible basilic vein. Access was obtained under real-time ultrasound guidance (with utilization of sterile gel and sterile probe cover) and digital image was saved and archived. An .018 wire was introduced. Needle exchanged for a 5 Urdu peel-away sheath. Measurements were obtained. A 5 Urdu dual-lumen Power PICC line catheter was cut to 47 cm and introduced over the wire. Peel-away sheath and wire were removed.Catheter was secured to the skin using 2-0 Prolene suture. Both ports aspirate and flush easily. Fluoroscopic images show distal tip in the superior vena cava. Total fluoroscopic time 0.2 minutes. Impression: Successful placement of an upper extremity PICC line catheter
--- NOTE | 2018-03-04 11:17 | Endoscopy Procedure Note ---
Endoscopy Procedure Note General Indication for Procedure: anemia Procedures Performed: EGD Operative Findings/Diagnosis: gastrtis Specimen: yes Pt Tolerated Procedure Well: Yes Estimated Blood Loss: none Anesthesia Anesthesiologist: jamshid Anesthesia: MAC Inserted Devices Implant(s) used?: No GI Core Measures 50 yrs or older w/o bx or poly: Not Applicable 10yrs. F/U not recommended: Not Applicable Bert Bourne MD March 04, 2018 11:16
--- NOTE | 2018-03-04 12:21 | Immediate Post-Op Evaluation ---
Immediate Post-Op Evalulation Immediate Post-Op Evalulation Procedure: egd/bx Date of Evaluation: March 04, 2018 Time of Evaluation: 11:35 IV Fluids: 200ml 0.9ns Blood Products: none Estimated Blood Loss: negligible Blood Pressure Systolic: 138 Blood Pressure Diastolic: 84 Pulse Rate: 52 Respiratory Rate: 18 O2 Sat by Pulse Oximetry: 98 Temperature (Fahrenheit): 97.6 Pain Score (1-10): 0 Nausea: No Vomiting: No Complications none Patient Status: awake, reacts, patent Hydration Status: adequate Drug: Lizabeth Starkey MD March 04, 2018 12:21
--- NOTE | 2018-03-04 12:23 | 48 Hour Post Anesthesia Eval ---
Post Anesthesia Evaluation Procedure: egd/bx Date of Evaluation: March 04, 2018 Time of Evaluation: 11:37 Blood Pressure Systolic: 162 0: 91 Pulse Rate: 49 Respiratory Rate: 18 Temperature (Fahrenheit): 97.6 O2 Sat by Pulse Oximetry: 98 Airway: patent Nausea: No Vomiting: No Pain Intensity: 0 Hydration Status: adequate Cardiopulmonary Status: stable Mental Status/LOC: patient returned to baseline Post-Anesthesia Complications: none Follow-up care needed: N/A Lizabeth Colon MD March 04, 2018 12:23
--- NOTE | 2018-03-04 16:17 | Procedure Note ---
DATE OF PROCEDURE: 03/04/2018 SURGEON: Bert Bourne M.D. ANESTHESIOLOGIST: Dr. Huertas. REFERRING PHYSICIAN: Isabel Dangelo M.D. PROCEDURE: Upper endoscopy with biopsy. ANESTHESIA: Per Dr. Huertas. INSTRUMENT: Olympus adult flexible upper endoscope. INDICATION: Upper GI bleeding, anemia. The procedure, risks, benefits, and possible consequences, including hemorrhage, aspiration, perforation and infection, and alternative treatments, were explained to the patient/legal guardian by Dr. Bert Bourne and the patient/legal guardian understood and accepted these risks. DESCRIPTION OF PROCEDURE: After informed consent was obtained and the patient was adequately sedated, Olympus upper endoscope was advanced from the mouth into the second portion of duodenum and retroflexion was performed in the stomach. The patient had some retained food material in the stomach making examination somewhat limited, but there was no evidence of any active GI bleeding. No ulcerations. The patient had diffuse gastritis. Random biopsy from antrum was obtained to rule out H. pylori infection. The patient tolerated the procedure well without complication. SUMMARY OF FINDINGS: Gastritis, otherwise normal upper endoscopic examination. RECOMMENDATIONS: Follow up biopsy results and treat accordingly. I want to thank Dr. Dangelo for this kind referral. Bert Bourne M.D. DR: Norah JOB#: [id number] CC: Isabel Dangelo M.D.; Fax#: [phone]
--- NOTE | 2018-03-04 17:57 | Neurology Progress Note ---
Interim History Interim History Interim History Mr. Grewal feels better today. He is enjoying his dinner. He slept well last night. His appetite is good. He has not been out of bed. He has had no physical therapy. He continues to be cognitively impoverished. He continues to be generally weak and the left side is still weaker. He denies any new neurologic symptoms. Review of Systems Neuro Review of Systems Benign. Objective Physical Exam Last Vital Signs Date Time Temp Pulse Resp B/P (MAP) Pulse Ox O2 Delivery O2 Flow Rate FiO2 03/04/18 16:00 98.1 58 18 153/80 100 Room Air 98.1 52 03/04/18 12:00 3.0 Laboratory Tests Test 03/04/18 08:40 White Blood Count 3.6 K/UL (4.8-10.8) L Red Blood Count 3.03 M/UL (4.70-6.10) L Hemoglobin 10.5 G/DL (14.2-18.0) L Hematocrit 29.9 % (42.0-52.0) L Mean Corpuscular Volume 99 FL (80-99) Mean Corpuscular Hemoglobin 34.6 PG (27.0-31.0) H Mean Corpuscular Hemoglobin Concent 35.1 G/DL (32.0-36.0) Red Cell Distribution Width 12.0 % (11.6-14.8) Platelet Count 84 K/UL (150-450) L Mean Platelet Volume 9.4 FL (6.5-10.1) Neutrophils (%) (Auto) % (45.0-75.0) Lymphocytes (%) (Auto) % (20.0-45.0) Monocytes (%) (Auto) % (1.0-10.0) Eosinophils (%) (Auto) % (0.0-3.0) Basophils (%) (Auto) % (0.0-2.0) Differential Total Cells Counted 100 Neutrophils % (Manual) 34 % (45-75) L Lymphocytes % (Manual) 55 % (20-45) H Monocytes % (Manual) 5 % (1-10) Eosinophils % (Manual) 4 % (0-3) H Basophils % (Manual) 0 % (0-2) Band Neutrophils 2 % (0-8) Platelet Estimate Decreased L Platelet Morphology Normal Red Blood Cell Morphology Normal Prothrombin Time 12.9 SEC (9.30-11.50) H Prothromb Time International Ratio 1.2 (0.9-1.1) H Activated Partial Thromboplast Time 37 SEC (23-33) H Sodium Level 141 MMOL/L (136-145) Potassium Level 3.6 MMOL/L (3.5-5.1) Chloride Level 106 MMOL/L (98-107) Carbon Dioxide Level 29 MMOL/L (21-32) Anion Gap 6 mmol/L (5-15) Blood Urea Nitrogen 16 mg/dL (7-18) Creatinine 1.3 MG/DL (0.55-1.30) Estimat Glomerular Filtration Rate > 60 mL/min (>60) Glucose Level 105 MG/DL (74-106) Calcium Level 8.3 MG/DL (8.5-10.1) L Iron Level 56 ug/dL (50-175) Total Iron Binding Capacity 227 ug/dL (250-450) L Percent Iron Saturation 25 % (15-50) Unsaturated Iron Binding 171 ug/dL (112-346) Total Bilirubin 0.5 MG/DL (0.2-1.0) Aspartate Amino Transf (AST/SGOT) 113 U/L (15-37) H Alanine Aminotransferase (ALT/SGPT) 72 U/L (12-78) Alkaline Phosphatase 92 U/L (46-116) Ammonia 171 umol/L (11-32) H Troponin I 0.030 ng/mL (0.000-0.056) Pro-B-Type Natriuretic Peptide 426 pg/mL (0-125) H Total Protein 7.4 G/DL (6.4-8.2) Albumin 2.3 G/DL (3.4-5.0) L Globulin 5.1 g/dL Albumin/Globulin Ratio 0.5 (1.0-2.7) L Carcinoembryonic Antigen Pending Neurologic Exam Objective PHYSICAL EXAMINATION: GENERAL: He is a well-developed, well-nourished, pleasant black gentleman, lying in bed, in no acute distress. HEAD: Normocephalic and atraumatic. NECK: No neck rigidity was observed. EENT: Examination benign. NEUROLOGIC EXAMINATION: MENTAL STATUS EXAMINATION: He was awake and alert. He was oriented to self, Hospital, and February 2018. He did not know the date or name of the hospital. He was able to recall 3/3 words immediately, but could only remember 2/3 words in 1 minute and 3 minutes. He was able to remember presidents, Trump and Obama, but could not remember presidents prior to that. His mathematical skills were impaired. His visuospatial function was also impaired. SPEECH: He had a mild dysarthria, but it should be noted that he was edentulous. LANGUAGE: He had anomia for low and mid frequency words. CRANIAL NERVE EXAMINATION: II: The visual hayes were intact to confrontation testing. III, IV & : The external ocular movements were full and the pupils 3 mm in diameter, equal, round, regular, and reactive to light. V: He had normal facial sensations and the temporales, masseters, and pterygoids functioned normally. VII: He had left seventh central facial paresis. VIII: He was able to hear well bilaterally and had no nystagmus. IX: The palate moved symmetrically on phonation. X: He had no hoarseness of voice. XI: The sternocleidomastoids and trapezii functioned normally. XII: The tongue was in the midline without any fasciculations or atrophy. MOTOR SYSTEM: The tone was minimally increased in both lower extremities with a mild degree of spasticity. Examination of muscle mass revealed generalized muscle wasting. Examination of power revealed G 5/5 power in the right upper extremity. G 5-/5 in the left upper extremity except for G 4/5 in the deltoid, biceps and triceps and G 4-/5 in the wrist extensors and finger extensors. In the lower extremities he had G 5-/5 except for G 4/5 in the right iliopsoas, G 3 /5 in the left iliopsoas, G 4+/5 in the ankle dorsiflexors and toe extensors bilaterally. SENSORY EXAMINATION: He had intact sensations to pinprick and light touch, but complained of a subjective alteration over his entire left body. REFLEXES: 1+ on the right and 1++ on the left at the biceps, triceps, brachioradialis, and knees, 0 at both ankles. The plantar responses were flexor bilaterally. STANCE & GAIT: Could not be tested as he felt that his legs would not carry him. Impression/Recommendations Diagnostic Impression 1. Mr. Cy Grewal is a 62-year-old, right-handed, black gentleman, with a past history of hypertension, diabetes mellitus, dyslipidemia, hepatitis, strokes, headaches, and a psychiatric illness, who was brought in for an altered mental state. 2. He feels feels better today. He is enjoying his dinner. His appetite is good. He has not been out of bed. He says he has had no physical therapy. He continues to be cognitively impoverished. He continues to be generally weak and the left side is still weaker. He denies any new neurologic symptoms. 3. On neurological examination, at this time, he does have problems with orientation, recent and remote memory, visuospatial function, higher cognitive function, and language. He also has a definite dysarthria, a left seventh central facial paresis, left greater than right quadriparesis, with globally diminished reflexes that are slightly brisker on the left than on the right, decreased sensations over his left body and inability to walk due to bilateral lower extremity weakness. 4. The CT scan of the brain without contrast done on 03/01/18 revealed no acute intracranial bleed, mass effect or edema. Mild atrophy of the brain. Nonspecific white matter disease due to chronic small vessel disease. 5. The MRI of the brain done on 03/03/18 revealed: No acute stroke. No mass effect, edema or acute hemorrhage identified. Evidence of chronic small vessel disease with multifocal, old lacunar infarcts and white matter chronic ischemic changes. Old left insular region infarct. Generalized atrophy. 6. Laboratory data revealed that he was anemic with a hemoglobin of 9.7. His chemistry panel revealed that his creatinine was elevated to 1.5. In addition, he also had hyperammonemia with an ammonia of 116. His pro-BNP was elevated at 391. 7. The patient's history, neurological examination, CT scan findings, and laboratory data are most compatible with a multifactorial encephalopathy, most probably related to his underlying structural brain disease with super-added electrolyte imbalances and hyperammonemia. 8. He also has a left greater than right paresis that has worsened since his last hospitalization, fortunately it is not due to a new cerebrovascular event. Recommendations 1. Continue present management. 2. Continue aspirin 81 mg daily for now. 3. The patient's blood pressure, blood sugar, and lipids should be controlled. 4. His hyperammonemia should be corrected. 5. Physical, occupational, and speech and language therapy. 6. Observe closely. Aric Martinez M.D., M.S.P.H. ARIC MARTINEZ March 04, 2018 17:57
--- NOTE | 2018-03-04 18:14 | Cardiology Progress Note ---
Assessment/Plan Assessment/Plan 1. Sinus tachycardia, resolved. 2. Recent hx of NSTEMI, 2D echo reveals normal LV systolic function. Continue ASA and B-blockers. 3. CVA, continue ASA and statins. 4. HTN, increase Irbesartan to 150mg daily. Subjective Subjective Sinus bradycardia at 59. Objective Last 24 Hour Vital Signs Date Time Temp Pulse Resp B/P (MAP) Pulse Ox O2 Delivery O2 Flow Rate FiO2 03/04/18 16:00 98.1 58 18 153/80 100 Room Air 98.1 52 03/04/18 16:00 55 03/04/18 12:23 207.7 49 18 98 03/04/18 12:21 207.7 52 18 98 03/04/18 12:00 97.8 59 18 148/78 98 Nasal Cannula 3.0 97.8 52 03/04/18 12:00 54 03/04/18 11:35 49 18 162/91 98 Nasal Cannula 3.0 49 03/04/18 11:28 49 18 159/91 98 Nasal Cannula 3.0 49 03/04/18 11:23 97.6 52 18 158/84 98 Nasal Cannula 3.0 97.6 52 03/04/18 08:26 55 155/80 03/04/18 08:25 155/90 03/04/18 08:00 97.5 55 20 155/80 98 Room Air 97.5 03/04/18 08:00 56 03/04/18 04:00 98.3 72 22 125/61 96 Room Air 98.3 03/04/18 04:00 56 03/04/18 00:00 97.5 57 20 138/64 96 Room Air 97.5 03/04/18 00:00 63 03/03/18 20:00 57 03/03/18 20:00 97.7 59 20 142/87 97 Room Air 97.7 Intake and Output 03/03/18 03/04/18 19:00 07:00 Intake Total 450 ml 480 ml Output Total 1350 ml Balance -900 ml 480 ml Intake Oral 450 ml 480 ml Output Urine Total 1350 ml # Voids 4 2D Echo: EF 60%, RVSP 42 mmHg, Mild LVH, RAP 20 mmHg Laboratory Tests Test 03/04/18 08:40 White Blood Count 3.6 K/UL (4.8-10.8) L Red Blood Count 3.03 M/UL (4.70-6.10) L Hemoglobin 10.5 G/DL (14.2-18.0) L Hematocrit 29.9 % (42.0-52.0) L Mean Corpuscular Volume 99 FL (80-99) Mean Corpuscular Hemoglobin 34.6 PG (27.0-31.0) H Mean Corpuscular Hemoglobin Concent 35.1 G/DL (32.0-36.0) Red Cell Distribution Width 12.0 % (11.6-14.8) Platelet Count 84 K/UL (150-450) L Mean Platelet Volume 9.4 FL (6.5-10.1) Neutrophils (%) (Auto) % (45.0-75.0) Lymphocytes (%) (Auto) % (20.0-45.0) Monocytes (%) (Auto) % (1.0-10.0) Eosinophils (%) (Auto) % (0.0-3.0) Basophils (%) (Auto) % (0.0-2.0) Differential Total Cells Counted 100 Neutrophils % (Manual) 34 % (45-75) L Lymphocytes % (Manual) 55 % (20-45) H Monocytes % (Manual) 5 % (1-10) Eosinophils % (Manual) 4 % (0-3) H Basophils % (Manual) 0 % (0-2) Band Neutrophils 2 % (0-8) Platelet Estimate Decreased L Platelet Morphology Normal Red Blood Cell Morphology Normal Prothrombin Time 12.9 SEC (9.30-11.50) H Prothromb Time International Ratio 1.2 (0.9-1.1) H Activated Partial Thromboplast Time 37 SEC (23-33) H Sodium Level 141 MMOL/L (136-145) Potassium Level 3.6 MMOL/L (3.5-5.1) Chloride Level 106 MMOL/L (98-107) Carbon Dioxide Level 29 MMOL/L (21-32) Anion Gap 6 mmol/L (5-15) Blood Urea Nitrogen 16 mg/dL (7-18) Creatinine 1.3 MG/DL (0.55-1.30) Estimat Glomerular Filtration Rate > 60 mL/min (>60) Glucose Level 105 MG/DL (74-106) Calcium Level 8.3 MG/DL (8.5-10.1) L Iron Level 56 ug/dL (50-175) Total Iron Binding Capacity 227 ug/dL (250-450) L Percent Iron Saturation 25 % (15-50) Unsaturated Iron Binding 171 ug/dL (112-346) Total Bilirubin 0.5 MG/DL (0.2-1.0) Aspartate Amino Transf (AST/SGOT) 113 U/L (15-37) H Alanine Aminotransferase (ALT/SGPT) 72 U/L (12-78) Alkaline Phosphatase 92 U/L (46-116) Ammonia 171 umol/L (11-32) H Troponin I 0.030 ng/mL (0.000-0.056) Pro-B-Type Natriuretic Peptide 426 pg/mL (0-125) H Total Protein 7.4 G/DL (6.4-8.2) Albumin 2.3 G/DL (3.4-5.0) L Globulin 5.1 g/dL Albumin/Globulin Ratio 0.5 (1.0-2.7) L Carcinoembryonic Antigen Pending Objective HEAD AND NECK: Atraumatic, normocephalic, PERRLA, EOMI. NECK: Showed no JVD. No carotid bruit. LUNGS: Coarse rhonchi. CARDIOVASCULAR: Shows regular, normal S1 and S2 with no gallops, rubs or murmurs. ABDOMEN: Soft, NT/ND, + hepatosplenomegaly. EXTREMITIES: A 1+ pitting edema. Grover Malcolm MD March 04, 2018 18:14
[2018-03-04] MEDS: Dyna-Hex 2% Top Sol 2oz TOPIC SCH (20:23)
[2018-03-05] VITALS (9 sets, daily range): BP systolic 146–161; BP diastolic 78–94
[2018-03-05] MEDS: D5NS 1,000 ML IV SCH ×2 (00:49→14:46)
--- NOTE | 2018-03-05 04:01 | Consultation ---
DATE OF CONSULTATION: 03/02/2018 CARDIOLOGY CONSULTATION CONSULTING PHYSICIAN: Grover Malcolm M.D. REFERRING PHYSICIAN: Isabel Dangelo M.D. REASON FOR CONSULTATION: Tachycardia. HISTORY OF PRESENT ILLNESS: The patient is a very unfortunate 62-year-old gentleman, who was brought in by EMS after increased altered mental status. He recently was admitted to the hospital for right insular cerebrovascular accident as well as encephalopathy. At the time of evaluation in the emergency department, he was noted to have right-sided weakness. Initial blood pressure was 168/80 and heart rate of 101. The patient had initial workup in the emergency department and showed very elevated ammonia level at 116, he was admitted to the hospital with hepatic encephalopathy with associated CVA and right hemiparesis. Cardiology consultation was made at request of Dr. Dangelo for evaluation and management of tachycardia. PAST MEDICAL HISTORY: Hypertension, hyperlipidemia, history of diabetes mellitus, history of schizophrenia, history of cerebrovascular accident with right hemiparesis, history of peripheral neuropathy, history of head trauma, and history of dysphagia. ALLERGIES: Penicillin. MEDICATIONS: List of medications, amlodipine 5 mg p.o. twice daily, gabapentin 100 mg p.o. three times a day, and metoprolol 25 mg q.12 h. SOCIAL HISTORY: Denies any tobacco, alcohol, or illicit drug use. REVIEW OF SYSTEMS: A 12-system review done essentially negative except what mentioned in the history of present illness. PHYSICAL EXAMINATION: GENERAL: The patient is a very unfortunate 62-year-old gentleman, in no apparent respiratory distress. Alert, awake, and oriented about 2. VITAL SIGNS: Blood pressure was 168/80, respirations of 12, pulse of 101, temperature 99.4 degrees Fahrenheit, and O2 saturation 96% on room air. HEENT: Atraumatic and normocephalic. ENT, pupils are equal, round, and reactive to light and accommodation. Extraocular muscles intact. NECK: JVP less than 5 cm. No carotid bruit. Carotid upstrokes 2+ bilaterally. CARDIOVASCULAR: Normal S1 and S2. Regular rate and rhythm. Tachycardic. No murmurs, gallops, or rubs. LUNGS: Clear to auscultation bilaterally. ABDOMEN: Soft, nontender, and nondistended. No hepatosplenomegaly. Positive bowel sounds. EXTREMITIES: Decreased motor function in the right upper extremity and dysphagia, but no peripheral edema, clubbing or cyanosis. LABORATORY AND DIAGNOSTIC DATA: Sodium was 142, potassium 3.3, chloride 109, bicarbonate 27, BUN of 17, creatinine 1.5, glucose 81, calcium is 9.3. AST 145 and ALT is 95. Ammonia is 116. Troponin I was 0.029. ProBNP was 391. INR was 1.3. Toxicology showed negative urine toxicology. Imaging showed CT of head being mild atrophy with no acute intracranial bleed, mass effect, or edema. There was nonspecific white matter hypoattenuation probably due to chronic small vessel disease. A 12-lead electrocardiogram was significant for sinus rhythm at a rate of 99 with LVH and T-wave abnormality, consider inferior and anterolateral ischemia and prolongation of QT interval. ASSESSMENT AND PLAN: The patient is a very unfortunate 62-year-old gentleman, seen in Cardiology consultation at request of Dr. Dangelo. 1. Sinus tachycardia. We would like to treat the underlying disease, which could be hypovolemia. 2. Chemistry shows some signs of contraction alkalosis. I would consider hydration and treatment of sinus tachycardia is the treatment of the underlying etiology. 3. Recent history of non-ST elevation myocardial infarction in this facility at that time 2D echocardiography, which showed normal LV systolic function. I would like to continue aspirin and beta-blockers. 4. CVA with right hemiparesis. Continue aspirin and statins. 5. History of hypertension. I would like to start the patient on irbesartan 75 mg daily. I would like to thank, Dr. Dangelo, for the courtesy of this consultation. Grover Malcolm M.D. DR: KIMMY JOB#: [id number] CC:
[2018-03-05 04:56] LABS: HEMATOCRIT 30.8 % (42.0-52.0); HEMOGLOBIN 10.5 G/DL (14.2-18.0); MEAN CORPUSCULAR VOLUME 97 FL (80-99); PLATELET COUNT 81 K/UL (150-450); RED BLOOD COUNT 3.18 M/UL (4.70-6.10)
[2018-03-05 05:17] LABS: ANION GAP 5 mmol/L (5-15); BLOOD UREA NITROGEN 18 mg/dL (7-18); CALCIUM 7.8 MG/DL (8.5-10.1); CARBON DIOXIDE 28 MMOL/L (21-32); CHLORIDE 108 MMOL/L (98-107); CREATININE 1.3 MG/DL (0.55-1.30); POTASSIUM 3.4 MMOL/L (3.5-5.1); SODIUM 141 MMOL/L (136-145)
[2018-03-05] MEDS: Lactulose 20gm/30ml UDC ORAL SCH ×3 (08:14→18:00)
[2018-03-05] MEDS: hydroCHLOROthiazide 12.5mg TAB ORAL SCH (08:17)
[2018-03-05] MEDS ORDERED: Irbesartan 150mg tablet ORAL SCH (09:00)
[2018-03-05] MEDS: Atenolol 25mg tab ORAL SCH (09:28)
--- NOTE | 2018-03-05 10:36 | GI Progress Note ---
Assessment/Plan Problems: (1) Anemia ICD Codes: D64.9 - Anemia, unspecified SNOMED: 859994466 (2) Drug abuse ICD Codes: F19.10 - Other psychoactive substance abuse, uncomplicated SNOMED: 91008386 (3) Liver cirrhosis ICD Codes: K74.60 - Unspecified cirrhosis of liver SNOMED: 72891919 (4) Hepatitis C ICD Codes: B19.20 - Unspecified viral hepatitis C without hepatic coma SNOMED: 78790623 (5) Homelessness ICD Codes: Z59.0 - Homelessness SNOMED: 95478083 (6) Hepatic encephalopathy ICD Codes: K72.90 - Hepatic failure, unspecified without coma SNOMED: 28036927 (7) History of CVA with residual deficit ICD Codes: I69.30 - Unspecified sequelae of cerebral infarction SNOMED: 159729125 Status: stable Status Narrative Discussed with Dr. Bourne. Assessment/Plan s/p EGD SUMMARY OF FINDINGS: Gastritis, otherwise normal upper endoscopic examination. RECOMMENDATIONS: okay for DC per GI standpoint macrocytic hyperchromic anemia >> B12/folate levels normal abdominal U/S reviewed on past admission >> Suspected chronic liver disease/ cirrhosis. Hepatitis C >> will require outpatient work up and treatment elevated AST >> patient on statin, current use ETOH >> trend elevated CEA elevated ammonia levels >> lactulose + xifaxan ppi fu labs ETOH cessation education given to patient. Follow up biopsy results and treat accordingly. Subjective Gastrointestinal/Abdominal: Reports: no symptoms Objective Last 24 Hour Vital Signs Date Time Temp Pulse Resp B/P (MAP) Pulse Ox O2 Delivery O2 Flow Rate FiO2 03/05/18 09:28 59 159/94 03/05/18 08:16 159/94 03/05/18 08:00 97.9 59 18 159/94 98 Room Air 97.9 03/05/18 04:00 51 03/05/18 04:00 98.5 52 19 155/79 98 Room Air 98.5 03/05/18 00:00 63 03/05/18 00:00 98.6 60 19 151/86 100 Room Air 98.6 03/04/18 20:00 98.6 60 20 138/71 96 Room Air 98.6 03/04/18 20:00 61 03/04/18 16:00 98.1 58 18 153/80 100 Room Air 98.1 52 5/31/18 16:00 55 03/04/18 12:23 207.7 49 18 98 03/04/18 12:21 207.7 52 18 98 03/04/18 12:00 97.8 59 18 148/78 98 Nasal Cannula 3.0 97.8 52 03/04/18 12:00 54 03/04/18 11:35 49 18 162/91 98 Nasal Cannula 3.0 49 03/04/18 11:28 49 18 159/91 98 Nasal Cannula 3.0 49 03/04/18 11:23 97.6 52 18 158/84 98 Nasal Cannula 3.0 97.6 52 Intake and Output 03/04/18 03/05/18 19:00 07:00 Intake Total 680 ml 1245 ml Balance 680 ml 1245 ml Intake Oral 600 ml 350 ml IV Total 80 ml 895 ml # Voids 3 Laboratory Tests Test 03/05/18 04:00 White Blood Count 4.0 K/UL (4.8-10.8) L Red Blood Count 3.18 M/UL (4.70-6.10) L Hemoglobin 10.5 G/DL (14.2-18.0) L Hematocrit 30.8 % (42.0-52.0) L Mean Corpuscular Volume 97 FL (80-99) Mean Corpuscular Hemoglobin 33.0 PG (27.0-31.0) H Mean Corpuscular Hemoglobin Concent 34.1 G/DL (32.0-36.0) Red Cell Distribution Width 12.0 % (11.6-14.8) Platelet Count 81 K/UL (150-450) L Mean Platelet Volume 9.1 FL (6.5-10.1) Neutrophils (%) (Auto) % (45.0-75.0) Lymphocytes (%) (Auto) % (20.0-45.0) Monocytes (%) (Auto) % (1.0-10.0) Eosinophils (%) (Auto) % (0.0-3.0) Basophils (%) (Auto) % (0.0-2.0) Differential Total Cells Counted 100 Neutrophils % (Manual) 25 % (45-75) L Lymphocytes % (Manual) 59 % (20-45) H Monocytes % (Manual) 9 % (1-10) Eosinophils % (Manual) 6 % (0-3) H Basophils % (Manual) 0 % (0-2) Band Neutrophils 1 % (0-8) Platelet Estimate Decreased L Platelet Morphology Normal Red Blood Cell Morphology Normal Sodium Level 141 MMOL/L (136-145) Potassium Level 3.4 MMOL/L (3.5-5.1) L Chloride Level 108 MMOL/L (98-107) H Carbon Dioxide Level 28 MMOL/L (21-32) Anion Gap 5 mmol/L (5-15) Blood Urea Nitrogen 18 mg/dL (7-18) Creatinine 1.3 MG/DL (0.55-1.30) Estimat Glomerular Filtration Rate > 60 mL/min (>60) Glucose Level 92 MG/DL (74-106) Calcium Level 7.8 MG/DL (8.5-10.1) L Height (Feet): 6 Height (Inches): 1.00 Weight (Pounds): 212 General Appearance: WD/WN, no apparent distress, alert Cardiovascular: normal rate Respiratory/Chest: normal breath sounds, no respiratory distress Abdominal Exam: normal bowel sounds, non tender, soft Extremities: normal range of motion, non-tender Luis Enrique Sow NP Mar 05, 2018 10:36
--- NOTE | 2018-03-05 11:23 | General Progress Note ---
Assessment/Plan Assessment/Plan S: patient is awake . communicative and talking O: appears comfortable, Denies pain . AOX1 PHYSICAL EXAMINATION: HEAD AND NECK: Atraumatic and normocephalic. CHEST: Clear to auscultation. No wheeze, no crackles.Heart: S1S2 RR, sinus bradycardia ABDOMEN: Soft. fullness, MUSCULOSKELETAL: Atrophied musculature, spontaneous movement of all 4 extremities.NEUROLOGIC: Awake, alert, oriented x1. ASSESSMENT AND PLAN: 1. Acute on chronic encephalopathy, multifactorial. 2. CVA- multiple with the sub acute component in Insular Region and other chronic ones 3. Anemia. 3. Liver cirrhosis 4. Chronic renal failure- at his base line 5. Hyperlipidemia. 6. Gastrointestinal and deep vein thrombosis prophylaxes. 7. Dementia PLAN OF CARE: Medically stable to followup as o/p Refuses placement Subjective Allergies: Coded Allergies: PENICILLINS (Verified Allergy, Unknown, 02/10/17) UNABLE TO ASSESS (Unverified , 03/01/18) Objective Last 24 Hour Vital Signs Date Time Temp Pulse Resp B/P (MAP) Pulse Ox O2 Delivery O2 Flow Rate FiO2 03/05/18 09:28 59 159/94 03/05/18 08:16 159/94 03/05/18 08:00 97.9 59 18 159/94 98 Room Air 97.9 03/05/18 04:00 51 03/05/18 04:00 98.5 52 19 155/79 98 Room Air 98.5 03/05/18 00:00 63 03/05/18 00:00 98.6 60 19 151/86 100 Room Air 98.6 03/04/18 20:00 98.6 60 20 138/71 96 Room Air 98.6 03/04/18 20:00 61 03/04/18 16:00 98.1 58 18 153/80 100 Room Air 98.1 52 03/04/18 16:00 55 03/04/18 12:23 207.7 49 18 98 03/04/18 12:21 207.7 52 18 98 03/04/18 12:00 97.8 59 18 148/78 98 Nasal Cannula 3.0 97.8 52 03/04/18 12:00 54 03/04/18 11:35 49 18 162/91 98 Nasal Cannula 3.0 49 03/04/18 11:28 49 18 159/91 98 Nasal Cannula 3.0 49 03/04/18 11:23 97.6 52 18 158/84 98 Nasal Cannula 3.0 97.6 52 Intake and Output 03/04/18 03/05/18 19:00 07:00 Intake Total 680 ml 1245 ml Balance 680 ml 1245 ml Intake Oral 600 ml 350 ml IV Total 80 ml 895 ml # Voids 3 Laboratory Tests 03/05/18 04:00: White Blood Count 4.0L, Red Blood Count 3.18L, Hemoglobin 10.5L, Hematocrit 30.8L, Mean Corpuscular Volume 97, Mean Corpuscular Hemoglobin 33.0H, Mean Corpuscular Hemoglobin Concent 34.1, Red Cell Distribution Width 12.0, Platelet Count 81L, Mean Platelet Volume 9.1, Neutrophils (%) (Auto) , Lymphocytes (%) ( Auto) , Monocytes (%) (Auto) , Eosinophils (%) (Auto) , Basophils (%) (Auto) , Differential Total Cells Counted 100, Neutrophils % (Manual) 25L, Lymphocytes % (Manual) 59H, Monocytes % (Manual) 9, Eosinophils % (Manual) 6H, Basophils % ( Manual) 0, Band Neutrophils 1, Platelet Estimate DecreasedL, Platelet Morphology Normal, Red Blood Cell Morphology Normal, Sodium Level 141, Potassium Level 3.4L, Chloride Level 108H, Carbon Dioxide Level 28, Anion Gap 5 , Blood Urea Nitrogen 18, Creatinine 1.3, Estimat Glomerular Filtration Rate > 60, Glucose Level 92, Calcium Level 7.8L Height (Feet): 6 Height (Inches): 1.00 Weight (Pounds): 212 Isabel Dangelo MD Mar 05, 2018 11:23
[2018-03-05] MEDS ORDERED: LACTULOSE20 GM/301 ORAL (15:26)
[2018-03-05] MEDS ORDERED: ATENOLOL25 MG ORAL (15:26)
[2018-03-05] MEDS ORDERED: XIFAXAN550 MG ORAL (15:26)
[2018-03-05] MEDS ORDERED: AVAPRO150 MG ORAL (15:26)
[2018-03-05] MEDS ORDERED: DIURIL25 MG ORAL (15:26)
[2018-03-05] MEDS ORDERED: PROTONIX40 MG ORAL (15:26)
--- NOTE | 2018-03-05 15:47 | Neurology Progress Note ---
Interim History Interim History Interim History Mr. Grewal feels well today. He slept well last night. His appetite is good. He has not been out of bed. He has had no physical therapy. He continues to be cognitively impoverished. He continues to be generally weak and the left side is still weaker. He denies any new neurologic symptoms. Review of Systems Neuro Review of Systems Benign. Objective Physical Exam Last Vital Signs Date Time Temp Pulse Resp B/P (MAP) Pulse Ox O2 Delivery O2 Flow Rate FiO2 03/05/18 12:00 97.6 55 18 159/93 100 Room Air 97.6 03/04/18 12:00 3.0 Laboratory Tests Test 03/05/18 04:00 White Blood Count 4.0 K/UL (4.8-10.8) L Red Blood Count 3.18 M/UL (4.70-6.10) L Hemoglobin 10.5 G/DL (14.2-18.0) L Hematocrit 30.8 % (42.0-52.0) L Mean Corpuscular Volume 97 FL (80-99) Mean Corpuscular Hemoglobin 33.0 PG (27.0-31.0) H Mean Corpuscular Hemoglobin Concent 34.1 G/DL (32.0-36.0) Red Cell Distribution Width 12.0 % (11.6-14.8) Platelet Count 81 K/UL (150-450) L Mean Platelet Volume 9.1 FL (6.5-10.1) Neutrophils (%) (Auto) % (45.0-75.0) Lymphocytes (%) (Auto) % (20.0-45.0) Monocytes (%) (Auto) % (1.0-10.0) Eosinophils (%) (Auto) % (0.0-3.0) Basophils (%) (Auto) % (0.0-2.0) Differential Total Cells Counted 100 Neutrophils % (Manual) 25 % (45-75) L Lymphocytes % (Manual) 59 % (20-45) H Monocytes % (Manual) 9 % (1-10) Eosinophils % (Manual) 6 % (0-3) H Basophils % (Manual) 0 % (0-2) Band Neutrophils 1 % (0-8) Platelet Estimate Decreased L Platelet Morphology Normal Red Blood Cell Morphology Normal Sodium Level 141 MMOL/L (136-145) Potassium Level 3.4 MMOL/L (3.5-5.1) L Chloride Level 108 MMOL/L (98-107) H Carbon Dioxide Level 28 MMOL/L (21-32) Anion Gap 5 mmol/L (5-15) Blood Urea Nitrogen 18 mg/dL (7-18) Creatinine 1.3 MG/DL (0.55-1.30) Estimat Glomerular Filtration Rate > 60 mL/min (>60) Glucose Level 92 MG/DL (74-106) Calcium Level 7.8 MG/DL (8.5-10.1) L Neurologic Exam Objective PHYSICAL EXAMINATION: GENERAL: He is a well-developed, well-nourished, pleasant black gentleman, lying in bed, in no acute distress. HEAD: Normocephalic and atraumatic. NECK: No neck rigidity was observed. EENT: Examination benign. NEUROLOGIC EXAMINATION: MENTAL STATUS EXAMINATION: He was awake and alert. He was oriented to self, Hospital, and February 2018. He did not know the date or name of the hospital. He was able to recall 3/3 words immediately, but could only remember 2/3 words in 1 minute and 3 minutes. He was able to remember presidents, Trump and Obama, but could not remember presidents prior to that. His mathematical skills were impaired. His visuospatial function was also impaired. SPEECH: He had a mild dysarthria, but it should be noted that he was edentulous. LANGUAGE: He had anomia for low and mid frequency words. CRANIAL NERVE EXAMINATION: II: The visual hayes were intact to confrontation testing. III, IV & : The external ocular movements were full and the pupils 3 mm in diameter, equal, round, regular, and reactive to light. V: He had normal facial sensations and the temporales, masseters, and pterygoids functioned normally. VII: He had left seventh central facial paresis. VIII: He was able to hear well bilaterally and had no nystagmus. IX: The palate moved symmetrically on phonation. X: He had no hoarseness of voice. XI: The sternocleidomastoids and trapezii functioned normally. XII: The tongue was in the midline without any fasciculations or atrophy. MOTOR SYSTEM: The tone was minimally increased in both lower extremities with a mild degree of spasticity. Examination of muscle mass revealed generalized muscle wasting. Examination of power revealed G 5/5 power in the right upper extremity. G 5-/5 in the left upper extremity except for G 4/5 in the deltoid, biceps and triceps and G 4-/5 in the wrist extensors and finger extensors. In the lower extremities he had G 5-/5 except for G 4/5 in the right iliopsoas, G 3 /5 in the left iliopsoas, G 4+/5 in the ankle dorsiflexors and toe extensors bilaterally. SENSORY EXAMINATION: He had intact sensations to pinprick and light touch, but complained of a subjective alteration over his entire left body. REFLEXES: 1+ on the right and 1++ on the left at the biceps, triceps, brachioradialis, and knees, 0 at both ankles. The plantar responses were flexor bilaterally. STANCE & GAIT: Could not be tested as he felt that his legs would not carry him. Impression/Recommendations Diagnostic Impression 1. Mr. Cy Grewal is a 62-year-old, right-handed, black gentleman, with a past history of hypertension, diabetes mellitus, dyslipidemia, hepatitis, strokes, headaches, and a psychiatric illness, who was brought in for an altered mental state. 2. He feels feels better today. He is enjoying his dinner. His appetite is good. He has not been out of bed. He says he has had no physical therapy. He continues to be cognitively impoverished. He continues to be generally weak and the left side is still weaker. He denies any new neurologic symptoms. 3. On neurological examination, at this time, he does have problems with orientation, recent and remote memory, visuospatial function, higher cognitive function, and language. He also has a definite dysarthria, a left seventh central facial paresis, left greater than right quadriparesis, with globally diminished reflexes that are slightly brisker on the left than on the right, decreased sensations over his left body and inability to walk due to bilateral lower extremity weakness. 4. The CT scan of the brain without contrast done on 03/01/18 revealed no acute intracranial bleed, mass effect or edema. Mild atrophy of the brain. Nonspecific white matter disease due to chronic small vessel disease. 5. The MRI of the brain done on 03/03/18 revealed: No acute stroke. No mass effect, edema or acute hemorrhage identified. Evidence of chronic small vessel disease with multifocal, old lacunar infarcts and white matter chronic ischemic changes. Old left insular region infarct. Generalized atrophy. 6. Laboratory data revealed that he was anemic with a hemoglobin of 9.7. His chemistry panel revealed that his creatinine was elevated to 1.5. In addition, he also had hyperammonemia with an ammonia of 116. His pro-BNP was elevated at 391. 7. The patient's history, neurological examination, CT scan findings, and laboratory data are most compatible with a multifactorial encephalopathy, most probably related to his underlying structural brain disease with super-added electrolyte imbalances and hyperammonemia. 8. He also has a left greater than right paresis that has worsened since his last hospitalization, fortunately it is not due to a new cerebrovascular event. Recommendations 1. Continue present management. 2. Continue aspirin 81 mg daily for now. 3. The patient's blood pressure, blood sugar, and lipids should be controlled. 4. His hyperammonemia should be corrected. 5. Physical, occupational, and speech and language therapy. 6. Observe closely. Aric Rouse M.D., M.S.P.ARIC HAMMER Mar 05, 2018 15:47
--- NOTE | 2018-03-05 19:26 | Cardiology Progress Note ---
Assessment/Plan Assessment/Plan 1. Sinus tachycardia, resolved. 2. Recent hx of NSTEMI, 2D echo reveals normal LV systolic function. Continue ASA and B-blockers. 3. CVA, continue ASA and statins. 4. HTN, increase Irbesartan to 300mg daily, increase HCTZ to 25mg daily. Subjective Subjective Sinus bradycardia at 56. Denies chest pain or SOB. Objective Last 24 Hour Vital Signs Date Time Temp Pulse Resp B/P (MAP) Pulse Ox O2 Delivery O2 Flow Rate FiO2 03/05/18 16:00 98.1 56 18 146/80 98 Room Air 98.1 03/05/18 16:00 57 03/05/18 12:00 97.6 55 18 159/93 100 Room Air 97.6 03/05/18 12:00 57 03/05/18 09:28 59 159/94 03/05/18 08:16 159/94 03/05/18 08:00 63 03/05/18 08:00 97.9 59 18 159/94 98 Room Air 97.9 03/05/18 04:00 51 03/05/18 04:00 98.5 52 19 155/79 98 Room Air 98.5 03/05/18 00:00 63 03/05/18 00:00 98.6 60 19 151/86 100 Room Air 98.6 03/04/18 20:00 98.6 60 20 138/71 96 Room Air 98.6 03/04/18 20:00 61 Intake and Output 03/04/18 03/05/18 19:00 07:00 Intake Total 680 ml 1245 ml Balance 680 ml 1245 ml Intake Oral 600 ml 350 ml IV Total 80 ml 895 ml # Voids 3 2D Echo: EF 60%, RVSP 42 mmHg, Mild LVH, RAP 20 mmHg Laboratory Tests Test 03/05/18 04:00 White Blood Count 4.0 K/UL (4.8-10.8) L Red Blood Count 3.18 M/UL (4.70-6.10) L Hemoglobin 10.5 G/DL (14.2-18.0) L Hematocrit 30.8 % (42.0-52.0) L Mean Corpuscular Volume 97 FL (80-99) Mean Corpuscular Hemoglobin 33.0 PG (27.0-31.0) H Mean Corpuscular Hemoglobin Concent 34.1 G/DL (32.0-36.0) Red Cell Distribution Width 12.0 % (11.6-14.8) Platelet Count 81 K/UL (150-450) L Mean Platelet Volume 9.1 FL (6.5-10.1) Neutrophils (%) (Auto) % (45.0-75.0) Lymphocytes (%) (Auto) % (20.0-45.0) Monocytes (%) (Auto) % (1.0-10.0) Eosinophils (%) (Auto) % (0.0-3.0) Basophils (%) (Auto) % (0.0-2.0) Differential Total Cells Counted 100 Neutrophils % (Manual) 25 % (45-75) L Lymphocytes % (Manual) 59 % (20-45) H Monocytes % (Manual) 9 % (1-10) Eosinophils % (Manual) 6 % (0-3) H Basophils % (Manual) 0 % (0-2) Band Neutrophils 1 % (0-8) Platelet Estimate Decreased L Platelet Morphology Normal Red Blood Cell Morphology Normal Sodium Level 141 MMOL/L (136-145) Potassium Level 3.4 MMOL/L (3.5-5.1) L Chloride Level 108 MMOL/L (98-107) H Carbon Dioxide Level 28 MMOL/L (21-32) Anion Gap 5 mmol/L (5-15) Blood Urea Nitrogen 18 mg/dL (7-18) Creatinine 1.3 MG/DL (0.55-1.30) Estimat Glomerular Filtration Rate > 60 mL/min (>60) Glucose Level 92 MG/DL (74-106) Calcium Level 7.8 MG/DL (8.5-10.1) L Objective HEAD AND NECK: Atraumatic, normocephalic, PERRLA, EOMI. NECK: Showed no JVD. No carotid bruit. LUNGS: Coarse rhonchi. CARDIOVASCULAR: Shows regular, normal S1 and S2 with no gallops, rubs or murmurs. ABDOMEN: Soft, NT/ND, + hepatosplenomegaly. EXTREMITIES: A 1+ pitting edema. Grover Malcolm MD Mar 05, 2018 19:26
[2018-03-05] MEDS: Dyna-Hex 2% Top Sol 2oz TOPIC SCH (20:18)
[2018-03-06] MEDS: D5NS 1,000 ML IV SCH (01:43)
[2018-03-06 04:00] VITALS: BP 156/88
[2018-03-06 08:00] VITALS: BP 170/102
--- NOTE | 2018-03-06 08:00 | General Progress Note ---
Assessment/Plan Problem List: (1) Hepatitis C ICD Codes: B19.20 - Unspecified viral hepatitis C without hepatic coma SNOMED: 87477524 (2) Liver cirrhosis ICD Codes: K74.60 - Unspecified cirrhosis of liver SNOMED: 69529233 (3) Anemia ICD Codes: D64.9 - Anemia, unspecified SNOMED: 451924892 (4) Drug abuse ICD Codes: F19.10 - Other psychoactive substance abuse, uncomplicated SNOMED: 45068070 (5) Hepatic encephalopathy ICD Codes: K72.90 - Hepatic failure, unspecified without coma SNOMED: 41138509 (6) History of CVA with residual deficit ICD Codes: I69.30 - Unspecified sequelae of cerebral infarction SNOMED: 493134069 Assessment/Plan okay for DC per GI standpoint macrocytic hyperchromic anemia >> B12/folate levels normal abdominal U/S reviewed on past admission >> Suspected chronic liver disease/ cirrhosis. Hepatitis C >> will require outpatient work up and treatment elevated AST >> patient on statin, current use ETOH >> trend elevated CEA elevated ammonia levels >> lactulose + xifaxan ppi fu labs Follow up biopsy results and treat accordingly. Subjective ROS Limited/Unobtainable: Yes Allergies: Coded Allergies: PENICILLINS (Verified Allergy, Unknown, 02/10/17) UNABLE TO ASSESS (Unverified , 03/01/18) Objective Last 24 Hour Vital Signs Date Time Temp Pulse Resp B/P (MAP) Pulse Ox O2 Delivery O2 Flow Rate FiO2 03/06/18 04:00 97.9 64 156/88 Room Air 97.9 03/06/18 04:00 54 03/06/18 00:00 60 03/05/18 23:22 98.1 58 152/78 Room Air 98.1 03/05/18 20:14 69 157/92 03/05/18 20:13 60 156/84 03/05/18 20:00 62 03/05/18 19:52 98.1 59 18 161/84 97 Room Air 98.1 03/05/18 16:00 98.1 56 18 146/80 98 Room Air 98.1 03/05/18 16:00 57 03/05/18 12:00 97.6 55 18 159/93 100 Room Air 97.6 03/05/18 12:00 57 03/05/18 09:28 59 159/94 6/1/18 08:16 159/94 03/05/18 08:00 63 03/05/18 08:00 97.9 59 18 159/94 98 Room Air 97.9 Intake and Output 03/05/18 03/06/18 19:00 07:00 Intake Total 940 ml Output Total 900 ml Balance 40 ml Intake Oral 940 ml Output Urine Total 900 ml # Voids 1 3 Height (Feet): 6 Height (Inches): 1.00 Weight (Pounds): 212 General Appearance: no apparent distress EENT: normal ENT inspection Neck: supple Cardiovascular: normal rate Respiratory/Chest: decreased breath sounds Abdomen: normal bowel sounds, non tender, soft Extremities: non-tender Bert Bourne MD Mar 06, 2018 08:00
[2018-03-06 08:35] VITALS: BP 170/102
[2018-03-06] MEDS: Lactulose 20gm/30ml UDC ORAL SCH (08:35)
[2018-03-06] MEDS: Atenolol 25mg tab ORAL SCH (08:35)
[2018-03-06] MEDS ORDERED: hydroCHLOROthiazide 12.5mg TAB ORAL SCH (09:00)
[2018-03-06] MEDS ORDERED: Irbesartan 150mg tablet ORAL SCH (09:00)
--- NOTE | 2018-03-06 11:54 | General Progress Note ---
Assessment/Plan Status: stable Assessment/Plan S: patient is awake . communicative and talking O: appears comfortable, Denies pain . AOX1 PHYSICAL EXAMINATION: HEAD AND NECK: Atraumatic and normocephalic. CHEST: Clear to auscultation. No wheeze, no crackles.Heart: S1S2 RR, sinus bradycardia ABDOMEN: Soft. fullness, MUSCULOSKELETAL: Atrophied musculature, spontaneous movement of all 4 extremities.NEUROLOGIC: Awake, alert, oriented x1. ASSESSMENT AND PLAN: 1. Acute on chronic encephalopathy, multifactorial. 2. CVA- multiple with the sub acute component in Insular Region and other chronic ones 3. Anemia. 3. Liver cirrhosis 4. Chronic renal failure- at his base line 5. Hyperlipidemia. 6. Gastrointestinal and deep vein thrombosis prophylaxes. 7. Dementia PLAN OF CARE: Medically stable to followup as o/p Refuses placement I called [facility] at [phone] just now Subjective Allergies: Coded Allergies: PENICILLINS (Verified Allergy, Unknown, 02/10/17) UNABLE TO ASSESS (Unverified , 03/01/18) Objective Last 24 Hour Vital Signs Date Time Temp Pulse Resp B/P (MAP) Pulse Ox O2 Delivery O2 Flow Rate FiO2 03/06/18 08:35 70 170/102 03/06/18 08:34 170/102 03/06/18 08:00 63 03/06/18 08:00 97.5 70 20 170/102 97 Room Air 97.5 03/06/18 04:00 97.9 64 156/88 Room Air 97.9 03/06/18 04:00 54 03/06/18 00:00 60 03/05/18 23:22 98.1 58 152/78 Room Air 98.1 03/05/18 20:14 69 157/92 03/05/18 20:13 60 156/84 03/05/18 20:00 62 03/05/18 19:52 98.1 59 18 161/84 97 Room Air 98.1 03/05/18 16:00 98.1 56 18 146/80 98 Room Air 98.1 03/05/18 16:00 57 03/05/18 12:00 97.6 55 18 159/93 100 Room Air 97.6 03/05/18 12:00 57 Intake and Output 03/05/18 03/06/18 19:00 07:00 Intake Total 940 ml Output Total 900 ml Balance 40 ml Intake Oral 940 ml Output Urine Total 900 ml # Voids 1 3 Height (Feet): 6 Height (Inches): 1.00 Weight (Pounds): 212 Isabel Dangelo MD Mar 06, 2018 11:54
--- NOTE | 2018-03-07 17:26 | Cardiology Report ---
APPROVED REPORT EKG Measurement Heart [id number] Sinus bradycardia Minimal voltage criteria for LVH, may be normal variant Nonspecific T wave abnormality Prolonged QT Abnormal ECG
--- NOTE | 2018-03-09 08:06 | Discharge Summary ---
Discharge Summary Discharge Summary _ DATE OF ADMISSION: 03/01/2018 DATE OF DISCHARGE: 03/06/2018 REASON FOR ADMISSION: 62 years old male with past medical history significant for CVA, NSTEMI, hyperlipidemia, renal failure, dementia , liver cirrhosis, was brought to emergency room due to altered level of consciousness. No reported seizure activity, no shortness of breath, no chest pain. No abnormal bleeding. Urine toxicology screen was negative as well as serum alcohol , Tylenol and salicylates levels. No leukocytosis, evidence of anemia with hemoglobin 9.7 , hematocrit 29.0; ammonia elevated- 116 ,AST 145, ALT 95, creatinine 1.5, BUN 17. Potassium 3.3. CT of the head revealed no acute intracranial pathology. EKG revealed normal sinus atrium. Troponin was negative. Patient was admitted with diagnosis of acute encephalopathy multifactorial, anemia, abnormal liver function tests, acute on chronic renal failure, hyperlipidemia. CONSULTANTS: animal cytologist Dr. Malcolm neurologist Dr. Rouse GI specialist Dr. Bourne [facility] COURSE: Patient admitted. Patient started on the IV hydration. Neurologist closely followed. Per neurologist, patient's encephalopathy was multifactorial, most probably related to underlying structural brain disease with super added electrolyte imbalances and hyper hyperammonemia. Neurologist recommended to continue aspirin and statin; keep blood pressure under control; correct ammonia. Patient started on lactulose and rifaximin. GI specialist closely followed. Patient undergone upper endoscopy with biopsy which revealed gastritis , otherwise was normal. Pathology revealed mild chronic gastritis, no evidence of H. pylori infection. Anemia workup revealed stable iron, B12 and folate level. Anemia appeared to be macrocytic hyperchromic. Hemoglobin and hematocrit were closely monitored with goal to keep hemoglobin above 7.. No need for transfusion, remained at baseline, no evidence of bleeding. Abdominal ultrasound on previous admission revealed suspected chronic liver disease/liver cirrhosis. Liver enzymes were closely monitored. AST from initial 145 down to 113 and ALT from 95 down to 72. Patient on statin and need close periodic monitoring of LFT. Patient will need outpatient treatment for hepatitis C ,which was explained to patient in details. DVT and GI prophylaxis provided. Patient was counseled on alcohol cessation, educational materials provided. Noted mild elevation in CEA 5.1, outpatient GI procedure, if patient agreeable, was recommended. Patient was started to work with physical and occupational therapists when became more alert. [employer] closely followed . Patient was recent history of NSTEMI and hypertension as well as hyperlipidemia. Aspirin, statin and beta dave were continued. Prior echocardiogram revealed preserved ejection fraction. Blood pressure regimen was uptitrated to keep blood pressure under control. Venous duplex bilateral lower extremities was negative for acute DVT. Renal parameters and electrolytes were closely monitored. Creatinine down to 1.3. Electrolytes were corrected as needed. Nephrotoxins were avoided. All specialists cleared patient for discharge. Patient refused placement. Prescription were called to [facility] pharmacy. FINAL DIAGNOSES: Acute on chronic encephalopathy , multifactorial Hepatic encephalopathy Anemia Gastritis Liver cirrhosis Hepatitis C History of multiple CVA with residual deficit Hyperlipidemia Hypertension Recent history of NSTEMI Homelessness Chronic renal failure (at baseline) History of drug abuse DISCHARGE MEDICATIONS: See Medication Reconciliation list. DISCHARGE INSTRUCTIONS: Patient was discharged home. Patient to follow-up with primary care provider in one week. Reinforce abstinence from ETOH and compliance with current medication regimen. I have been assigned to dictate discharge summary for this account. I was not involved in the patient's management. Dorothy Quevedo NP Mar 09, 2018 08:06
== END 2018-03-06 11:25 | disposition home or self-care (01) | DRG 279 ==
LOC: EDBD 13:14 → EMR 13:47 → 2E 14:55 → EDBEDREQ 15:50 → 2E 03-04 11:36
PROC: 02HV33Z Insertion of Infusion Device into Superior Vena Cava, Percutaneous Approach (ICD-10-PCS; 2018-03-04)
PROC: B548ZZA Ultrasonography of Superior Vena Cava, Guidance (ICD-10-PCS; 2018-03-04)
PROC: 0DJ08ZZ Inspection of Upper Intestinal Tract, Via Natural or Artificial Opening Endoscopic (ICD-10-PCS; principal; 2018-03-04 11:12)
DX: K72.90 Hepatic failure, unspecified without coma (principal); N17.9 Acute kidney failure, unspecified; E11.22 Type 2 diabetes mellitus with diabetic chronic kidney disease; E11.42 Type 2 diabetes mellitus with diabetic polyneuropathy; B19.20 Unspecified viral hepatitis C without hepatic coma; I69.351 Hemiplegia and hemiparesis following cerebral infarction affecting right dominant side; I69.322 Dysarthria following cerebral infarction; I12.9 Hypertensive chronic kidney disease with stage 1 through stage 4 chronic kidney disease, or unspecified chronic kidney disease; N18.9 Chronic kidney disease, unspecified; D64.9 Anemia, unspecified; I25.2 Old myocardial infarction; E78.5 Hyperlipidemia, unspecified; K29.70 Gastritis, unspecified, without bleeding; Z59.0 Homelessness; R00.1 Bradycardia, unspecified
CPT/HCPCS: 36415; 36569; 70450; 70551; 76937; 80048; 80053; 80307; 80329; 82140; 82378; 83540; 83550; 83880; 84484; 85007; 85025; 85610; 85730; 87081; 93005; 93970; 94003; 94150; 96360; 96361; 96374; 99285; J8499

== ENCOUNTER 2018-03-11 11:43 | Emergency (ER) | payer OTHER ==
[~2018-03-11] VITALS: Ht 182.9 cm; Wt 86.2 kg
[~2018-03-11 11:43] MED LIST changes: +ATENOLOL25 MG ORAL; +AVAPRO150 MG ORAL; +DIURIL25 MG ORAL; +PROTONIX40 MG ORAL; +UNOBMED; +XIFAXAN550 MG ORAL
--- NOTE | 2018-03-11 12:07 | Emergency Room Report ---
History of Present Illness General Chief Complaint: Altered Level of Consciousness Source: Patient Present Illness HPI This patient is brought in by EMS. Apparently they were called by a good Uatsdin who was concerned that the patient was altered. The patient is well- known to [facility]. He is a homeless male. He has a history of hepatic encephalopathy, CVA. The patient himself has no complaints. The patient denies drinking alcohol. When I asked the patient if he would like to be further evaluated, he states that he does not want further evaluation. He states he feels fine. He wants to know how he can get back to where he was brought from. He refuses my examination or evaluation. Allergies: Coded Allergies: PENICILLINS (Verified Allergy, Unknown, 02/10/17) UNABLE TO ASSESS (Unverified , 03/01/18) Patient History Past Medical History: see triage record, HTN, CVA/TIA, other - cirrhosis, anemia, HEP C Social History: Denies: smoking, alcohol use, drug use Reviewed Nursing Documentation: PMH: Agreed; PSxH: Agreed Nursing Documentation-PMH Hx Cardiac Problems: Yes Hx Hypertension: Yes - hyperlipedema Hx Diabetes: Yes Hx Cancer: No Hx Cerebrovascular Accident: Yes Hx Transient Ischemic Attacks: No Hx Dementia: No Hx Alzheimer's Disease: No Hx Seizures: No Hx Epilepsy: No Hx Paralysis: No Hx Peripheral Neuropathy: Yes Hx Head Trauma: Yes Hx Traumatic Brain Injury: No Hx Speech Problem: Yes - Slurring d/t CVA Hx Dizziness: No Hx Headaches: Yes Hx Numbness: No Hx Weakness: No Hx Neurologic Surgery: No Hx Brain Shunt: No Review of Systems All Other Systems: negative except mentioned in HPI Physical Exam Vital Signs Date Time Temp Pulse Resp B/P (MAP) Pulse Ox O2 Delivery O2 Flow Rate FiO2 03/11/18 11:37 98.0 82 18 150/72 98 Room Air 98.1 Sp02 EP Interpretation: reviewed, normal General Appearance: no apparent distress, alert, GCS 15, non-toxic Head: normocephalic, atraumatic ENT: hearing grossly normal, no angioedema, normal voice Neck: normal inspection Respiratory: no respiratory distress, no retraction, no accessory muscle use, speaking full sentences Rectal: deferred Musculoskeletal: other - using walker, antalgic gait (hx cva) Neurologic: alert, oriented x3, responsive, other - Not able to do detailed exam secondary to patient refusal. Psychiatric: judgement/insight normal, memory normal, mood/affect normal, no suicidal/homicidal ideation Skin: normal color, no rash, warm/dry, well hydrated Medical Decision Making Diagnostic Impression: Primary Impression: Homelessness ER Course The patient is brought in by EMS. The patient has no complaints. The patient is alert and oriented 4 and refusing my evaluation. I did offer the patient and examination and laboratory workup. However, the patient declined. The patient left without further workup. Last Vital Signs Date Time Temp Pulse Resp B/P (MAP) Pulse Ox O2 Delivery O2 Flow Rate FiO2 03/11/18 11:37 98.0 82 18 150/72 98 Room Air 98.1 Disposition: HOME, SELF-CARE Condition: Stable SHIVAM JO D.O. Mar 11, 2018 12:07
[2018-03-11 13:00] VITALS: BP 150/72
== END 2018-03-11 13:00 | disposition home or self-care (01) ==
LOC: EDBD 11:43 → EMR 12:21
DX: R41.82 Altered mental status, unspecified (principal); I10 Essential (primary) hypertension; E11.9 Type 2 diabetes mellitus without complications; E78.5 Hyperlipidemia, unspecified; I69.328 Other speech and language deficits following cerebral infarction; Z59.0 Homelessness; K74.60 Unspecified cirrhosis of liver; B19.20 Unspecified viral hepatitis C without hepatic coma; Z88.0 Allergy status to penicillin
CPT/HCPCS: 99283

== ENCOUNTER 2019-05-15 10:21 | Inpatient (IN) | payer OTHER ==
[~2019-05-15] VITALS: Ht 185.4 cm; Wt 103.4 kg
--- NOTE | 2019-05-15 10:25 | NUR ---
ED Nurse Note: Patient brought in by ambulance, c/o worsening bilateral lower extremity pain, patient reports chronic pain for 5 years. patient is alert awake x4. patient's right foot swelling noted. patient placed in a hospital gown.
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
--- NOTE | 2019-05-15 12:09 | Diagnostic Imaging Report ---
EXAM: XR Right Foot Complete, 3 or More Views CLINICAL HISTORY: INFECT TECHNIQUE: Frontal, lateral and oblique views of the right foot. COMPARISON: No relevant prior studies available. FINDINGS: Bones/joints: Destructive changes involving the first distal phalanx. Fracture and heterogeneity of the first proximal phalanx. Limited assessment of the second and fourth distal phalanges, cannot exclude fractures or destructive changes. Amputation of the third toe. Degenerative changes throughout the foot. Plantar and posterior calcaneal spurs. Osteopenia. Soft tissues: Soft tissue swelling and edema. IMPRESSION: Destructive changes involving the first distal phalanx. Fracture and heterogeneity of the first proximal phalanx.
[2019-05-15 12:20] LABS: APPEARANCE,URINE CLEAR; BASOPHILS % (AUTO) 1.6 % (0.0-2.0); BILIRUBIN, URINE NEGATIVE (NEGATIVE); COLOR,URINE PALE YELLOW; EOSINOPHILS % (AUTO) 4.2 % (0.0-3.0); GLUCOSE, URINE (UA) NEGATIVE (NEGATIVE); HEMATOCRIT 41.6 % (42.0-52.0); HEMOGLOBIN 14.1 G/DL (14.2-18.0); KETONES,URINE NEGATIVE (NEGATIVE); LEUKOCYTE ESTERASE ,URINE NEGATIVE (NEGATIVE); LYMPHOCYTES % (AUTO) 47.7 % (20.0-45.0); MEAN CORPUSCULAR VOLUME 97 FL (80-99); MONOCYTES % (AUTO) 10.8 % (1.0-10.0); NEUTROPHILS % (AUTO) 35.8 % (45.0-75.0); NITRITE,URINE NEGATIVE (NEGATIVE); PH,URINE 8 (4.5-8.0); PLATELET COUNT 118 K/UL (150-450); PROTEIN,URINE 1+ (NEGATIVE); RED BLOOD COUNT 4.28 M/UL (4.70-6.10); RED CELL DISTRIBUTION WIDTH 11.5 % (11.6-14.8); UROBILINOGEN,URINE 4 MG/DL (0.0-1.0); WHITE BLOOD COUNT 5.6 K/UL (4.8-10.8)
[2019-05-15 12:41] LABS: ANION GAP 8 mmol/L (5-15); BLOOD UREA NITROGEN 12 mg/dL (7-18); CALCIUM 9.6 MG/DL (8.5-10.1); CARBON DIOXIDE 29 MMOL/L (21-32); CHLORIDE 103 MMOL/L (98-107); CREATININE 1.3 MG/DL (0.55-1.30); POTASSIUM 3.8 MMOL/L (3.5-5.1); SODIUM 140 MMOL/L (136-145)
[2019-05-15 12:51] LABS: ALANINE AMINOTRANSFERASE 91 U/L (12-78); ALBUMIN 2.9 G/DL (3.4-5.0); ALBUMIN/GLOBULIN RATIO 0.4 (1.0-2.7); ALKALINE PHOSPHATASE 111 U/L (46-116); ASPARTATE AMINO TRANSFERASE 187 U/L (15-37); PHOSPHORUS 3.2 MG/DL (2.5-4.9)
[2019-05-15] MEDS ORDERED: Clindamycin 600mg 50 ML IVPB ONE (13:30)
--- NOTE | 2019-05-15 14:24 | NUR ---
ED Nurse Note: sandwich/water provided to patient.
[2019-05-15 14:51] VITALS: BP 176/94
[2019-05-15] MEDS ORDERED: NKM (14:52)
--- NOTE | 2019-05-15 14:53 | NUR ---
ED Nurse Note: notified Dr. Ware regarding patient's blood pressure.
--- NOTE | 2019-05-15 16:00 | NUR ---
HAND-OFF: Report given to Andrez FATIMA
[2019-05-15 16:40] VITALS: BP 153/85
--- NOTE | 2019-05-15 17:00 | NUR ---
NURSE NOTES: Patient arrived to from ER with AKUA Maguire. Patient's stable, stated pain on his legs, 7/10 pain. No s/s of distress or SOB. Patient belonging list went over with patient and ER Nurse at bedside. VS is taken: BP 163/95, O2 97%, Temp 98.4, RR 18, GA 84. Voided in urinal upon arrival. Physical assessment showed cellulitis on both legs, Right foot, no pressure injury. Contacted Dr. Catherine for the new admission, awaiting for order.
--- NOTE | 2019-05-15 17:11 | NUR ---
NURSE NOTES: Dr. Catherine ordered admission order. Acknowledge order and carried out. Full Code, CBC and BMP in AM, Wound Eval by Dr. Villalobos, Regular Diet. Zosyn 3.375g IV Q6hr. Vanco IV per Pharmacy. Tylenol 650mg q4hr PRN, Nylanta 30cc q4hr PRN, Protonix 40mg PO QD.
[2019-05-15] MEDS ORDERED: Amikacin Rx to dose MISC PRN (17:45)
--- NOTE | 2019-05-15 18:35 | Diagnostic Imaging Report ---
US VENOUS RIGHT LOWER EXTREMITY: No evidence of deep venous thrombosis.
--- NOTE | 2019-05-15 19:50 | NUR ---
HAND-OFF: Report given to AKUA Najera. Plan of care endorsed .
[2019-05-15 20:00] VITALS: BP 170/105
[2019-05-15] MEDS ORDERED: NS IV SCH (21:00)
[2019-05-15] MEDS ORDERED: AMIKACIN IV SCH (21:00)
[2019-05-15] MEDS ORDERED: Vancomycin 1.5gm Premix IVPB ONE (22:00)
--- NOTE | 2019-05-15 22:30 | NUR ---
NURSE NOTES: Pt is in bed, awake and alert. No acute distress noted. Pt has wound around right toe area. Pt is unable bare weight on his feet.Pt moves around in a wheelchair. Pt is on ABX. Pt's BP is elevated,170/105. Clonidine 0.1mg given as ordered PRN by Dr. Catherine. Bed locked low in position,side rails up and call light within reach. Pt will be monitored.
[2019-05-15] MEDS: Levofloxacin 500mg tab ORAL SCH (23:03)
[2019-05-16] VITALS: BP 141/84
--- NOTE | 2019-05-16 03:30 | NUR ---
NURSE NOTES: Pt is in bed, awake. Pt's right Foot cleaned with NS and dressing applied.
[2019-05-16 04:00] VITALS: BP 144/91
--- NOTE | 2019-05-16 07:25 | NUR ---
HAND-OFF: Report given to Erin Valencia RN.
[2019-05-16 07:49] LABS: BASOPHILS % (AUTO) 1.9 % (0.0-2.0); EOSINOPHILS % (AUTO) 5.4 % (0.0-3.0); HEMATOCRIT 36.1 % (42.0-52.0); HEMOGLOBIN 12.5 G/DL (14.2-18.0); LYMPHOCYTES % (AUTO) 36.3 % (20.0-45.0); MEAN CORPUSCULAR VOLUME 96 FL (80-99); MONOCYTES % (AUTO) 14.8 % (1.0-10.0); NEUTROPHILS % (AUTO) 41.6 % (45.0-75.0); PLATELET COUNT 100 K/UL (150-450); RED BLOOD COUNT 3.75 M/UL (4.70-6.10); WHITE BLOOD COUNT 4.4 K/UL (4.8-10.8)
[2019-05-16 07:52] LABS: ANION GAP 4 mmol/L (5-15); BLOOD UREA NITROGEN 12 mg/dL (7-18); CALCIUM 8.7 MG/DL (8.5-10.1); CARBON DIOXIDE 30 MMOL/L (21-32); CHLORIDE 105 MMOL/L (98-107); CREATININE 1.2 MG/DL (0.55-1.30); POTASSIUM 3.6 MMOL/L (3.5-5.1); SODIUM 139 MMOL/L (136-145)
--- NOTE | 2019-05-16 07:52 | NUR ---
nurse notes received patient sitting on the edge of the bed eating, patient awake, alert , oriented x4, no sign of distress, HL patent, on fall precaution,plan of care was discussed verbalized understanding, 4 P's in progress call light w/n reach, will continue to monitor peng valenzuela
[2019-05-16 08:00] VITALS: BP 140/88
[2019-05-16] MEDS: Heparin 5000 units/ml inj SUBQ SCH ×2 (08:44→20:41)
[2019-05-16] MEDS: Vancomycin 1gm/D5W 275ml IVPB SCH ×4 (09:48→20:41)
[2019-05-16 12:00] VITALS: BP 145/86
--- NOTE | 2019-05-16 14:18 | NUR ---
PT EVALUATION NOTE Patient seen for initial evaluation, see complete evaluation for details. Patient presents with generalized weakness and pain BLEs which affects patient's ability to perform bed mobility and transfer activities. Patient states that he gets around using his wheelchair which has a broken tire. Patient will benefit from skilled inpatient PT intervention to address strength, balance, safety and functional mobility. Recommend SNF for further rehab once medically cleared by MD. DME needs to be determined based on patient's progress. Addendum: 05/16/19 at 1422 by KEATON CARBALLO PT Amended: Links added.
[2019-05-16] MEDS ORDERED: NS 500ML ONE (14:39)
[2019-05-16] MEDS ORDERED: Tubing IV Secondary IV ONE (14:39)
[2019-05-16 16:00] VITALS: BP 136/82
--- NOTE | 2019-05-16 16:43 | NUR ---
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 Fracture and heterogeneity of the first proximal phalanx. IS: NONE Admitted to Med-surg Med-surg status DCP: Pending Hospital Stay
--- NOTE | 2019-05-16 18:41 | Consultation ---
History of Present Illness General Date patient seen: May 16, 2019 Reason for Hospitalization: Pain Present Illness HPI 63-year-old male with history of CAD, CVA, hypertension, hyperlipidemia, CKD, dementia, liver cirrhosis, alcohol abuse, opiate abuse in a methadone program presents for evaluation of bilateral lower extremity pain and swelling over the past 2 weeks. Cannot recall specific injury. States he has worsening pain, swelling, redness and skin breakdown over the right foot. He is no longer able to bear weight and called EMS. He denies fevers, chest pain, shortness of breath, vomiting, diarrhea, abdominal pain, other skin breakdown or rash in the upper extremities, torso. Denies drinking alcohol in the past few weeks. States he is in a methadone program and last dose was 2 days ago. Surgery called to evaluate for cellulitis and possible abscess. patient seen, chart reviewed, patient examined. Allergies: Coded Allergies: PENICILLINS (Verified Allergy, Unknown, 02/10/17) UNABLE TO ASSESS (Unverified , 03/01/18) Uncoded Allergies: PENICILLIN (Allergy, Unknown, 05/15/19) Medication History Scheduled Amlodipine Besylate (Norvasc), 5 MG ORAL BID Atenolol* (Tenormin*), 25 MG ORAL DAILY Gabapentin* (Gabapentin*), 100 MG ORAL THREE TIMES A DAY Hydrochlorothiazide (Hydrochlorothiazide), 12.5 MG ORAL DAILY Irbesartan* (Avapro*), 150 MG ORAL DAILY Lactulose (Lactulose*), 10 GM ORAL THREE TIMES A DAY Metoprolol Tartrate* (Metoprolol Tartrate*), 25 MG ORAL EVERY 12 HOURS, ( Reported) Pantoprazole* (Protonix*), 40 MG ORAL DAILY Rifaximin* (Xifaxan*), 550 MG ORAL EVERY 12 HOURS Miscellaneous Medications Unable to Obtain Medications (Unable To Obtain Meds), (Reported) Discontinued Medications No Known Medications* (NKM - No Known Medications*), 0 ., (Reported) Discontinued Reason: Pt had allergic rxn Patient History History Provided By: Patient, Medical Record, PMD Healthcare decision maker SELF Resuscitation status Full Code Advanced Directive on File Past Medical/Surgical History Past Medical/Surgical History: (1) Osteomyelitis of foot, right, acute (2) Coagulopathy (3) 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 (4) Acute ischemic left posterior cerebral artery ([employer]HEARING [employer]) stroke (5) 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 (6) Onychomycosis (7) Acute renal failure (8) Peripheral neuropathy (9) Hepatic encephalopathy (10) Drug abuse (11) Anemia (12) Liver cirrhosis (13) Hepatitis C (14) Cellulitis of foot, right Review of Systems Review of Symptoms General ROS: no weight loss or fever Psychological ROS: no depression or mood changes, no memory loss Ophthalmic ROS: no visual changes or eye irritation ENT ROS: no nasal congestion, hearing loss, dizziness Allergy and Immunology ROS: no allergic symptoms or urticaria Hematological and Lymphatic ROS: no swollen glands, unusual bleeding or bruising Endocrine ROS: no polyuria, polydipsia, weight changes, temperature intolerance Respiratory ROS: no cough, shortness of breath, or wheezing Cardiovascular ROS: no chest pain or dyspnea on exertion Gastrointestinal ROS: denies abdominal pain, no bright red blood in stool. Musculoskeletal ROS: no myalgias or arthralgias Neurological ROS: no TIA or stroke symptoms Dermatological ROS: no new or changing skin lesions, rashes or pruritis Physical Exam Physical Exam General appearance: alert, cooperative, no distress, appears stated age Head: Normocephalic, without obvious abnormality, atraumatic Eyes: conjunctivae/corneas clear. PERRL, EOM's intact. Fundi benign Throat: Lips, mucosa, and tongue normal. Teeth and gums normal Neck: supple, symmetrical, trachea midline, no adenopathy, thyroid: not enlarged, symmetric, no tenderness/mass/nodules, no carotid bruit and no JVD Lungs: clear to auscultation bilaterally Heart: regular rate and rhythm, S1, S2 normal, no murmur, click, rub or gallop Abdomen: soft, non-tender. Bowel sounds normal. No masses, no organomegaly Extremities: extremities b/l edema w/ chronic venous stasis. no abscess Pulses: 2+ and symmetric Skin: Skin color, texture, turgor normal. No rashes or lesions Neurologic: Grossly normal Last 24 Hour Vital Signs Date Time Temp Pulse Resp B/P (MAP) Pulse Ox O2 Delivery O2 Flow Rate FiO2 05/16/19 16:00 98.6 69 17 136/82 (100) 96 05/16/19 12:00 98.3 64 19 145/86 (105) 96 8/12/19 08:25 Room Air 05/16/19 08:00 98.0 74 19 140/88 (105) 97 05/16/19 04:00 98.2 76 19 144/91 (108) 99 05/16/19 00:00 98.5 85 19 141/84 (103) 95 05/15/19 23:03 170/105 05/15/19 21:00 Room Air 05/15/19 20:00 98.7 86 19 170/105 (126) 97 Intake and Output 05/15/19 05/16/19 19:00 07:00 Intake Total 280.2 ml Balance 280.2 ml IV Total 280.2 ml Laboratory Tests Test 05/16/19 07:10 White Blood Count 4.4 K/UL (4.8-10.8) L Red Blood Count 3.75 M/UL (4.70-6.10) L Hemoglobin 12.5 G/DL (14.2-18.0) L Hematocrit 36.1 % (42.0-52.0) L Mean Corpuscular Volume 96 FL (80-99) Mean Corpuscular Hemoglobin 33.2 PG (27.0-31.0) H Mean Corpuscular Hemoglobin Concent 34.5 G/DL (32.0-36.0) Red Cell Distribution Width 11.0 % (11.6-14.8) L Platelet Count 100 K/UL (150-450) L Mean Platelet Volume 9.8 FL (6.5-10.1) Neutrophils (%) (Auto) 41.6 % (45.0-75.0) L Lymphocytes (%) (Auto) 36.3 % (20.0-45.0) Monocytes (%) (Auto) 14.8 % (1.0-10.0) H Eosinophils (%) (Auto) 5.4 % (0.0-3.0) H Basophils (%) (Auto) 1.9 % (0.0-2.0) Sodium Level 139 MMOL/L (136-145) Potassium Level 3.6 MMOL/L (3.5-5.1) Chloride Level 105 MMOL/L (98-107) Carbon Dioxide Level 30 MMOL/L (21-32) Anion Gap 4 mmol/L (5-15) L Blood Urea Nitrogen 12 mg/dL (7-18) Creatinine 1.2 MG/DL (0.55-1.30) Estimat Glomerular Filtration Rate > 60 mL/min (>60) Glucose Level 101 MG/DL (74-106) Calcium Level 8.7 MG/DL (8.5-10.1) Random Amikacin Level 11.6 ug/mL Height (Feet): 6 Height (Inches): 1.00 Weight (Pounds): 219 Medications Current Medications Medications (Trade) Dose Ordered Sig/Sharla Route PRN Reason Start Time Stop Time Status Last Admin Dose Admin Acetaminophen (Tylenol) 650 mg Q4H PRN ORAL For Pain 05/15/19 17:45 06/14/19 17:44 Al Hydroxide/Mg Hydroxide (Mylanta) 30 ml Q4H PRN ORAL dyspepsia 05/15/19 17:45 06/14/19 17:44 Amikacin Protocol (Amikacin pharmacy to dose) 1 ea DAILY PRN MISC Per rx protocol 05/15/19 17:45 06/14/19 17:44 Amikacin Sulfate 1300 mg/Sodium Chloride 280.2 ml @ 280.2 mls/ hr Q36H IV 05/17/19 12:00 05/24/19 11:59 Clonidine HCl (Catapres Tab) 0.1 mg Q4H PRN ORAL For High Blood Pressure 05/15/19 21:15 06/14/19 21:14 05/15/19 23:03 Heparin Sodium (Porcine) (Heparin 5000 units/ml) 5,000 units EVERY 12 HOURS SUBQ 05/16/19 09:00 06/15/19 08:59 Levofloxacin (Levaquin) 500 mg Q24H ORAL 05/15/19 21:00 05/22/19 20:59 05/15/19 23:03 Pantoprazole (Protonix) 40 mg DAILY ORAL 05/16/19 09:00 06/15/19 08:59 05/16/19 08:44 Vancomycin HCl (Vanco rx to dose) 1 ea DAILY MISC 05/16/19 09:00 06/15/19 08:59 Vancomycin HCl 1 gm/Dextrose 275 ml @ 183.708 mls/hr Q12HR@1000,2200 IVPB 05/16/19 10:00 05/21/19 09:59 8/12/19 09:48 Assessment/Plan Problem List: (1) Cellulitis of foot, right Assessment & Plan: Bones/joints: Destructive changes involving the first distal phalanx. Fracture and heterogeneity of the first proximal phalanx. Limited assessment of the second and fourth distal phalanges, cannot exclude fractures or destructive changes. Amputation of the third toe. Degenerative changes throughout the foot. Plantar and posterior calcaneal spurs. Osteopenia. Soft tissues: Soft tissue swelling and edema. Bilateral lower extremity edema pain and difficulty with ambulatory edema on and off for years. now worse past 2 weeks -Keep bilateral lower extremity elevated while in bed or chair -patient is wheelchair use majority of the time and does not walk actively for some time now. states his wheelchair is broken and wants new one. -DVT study noted and negative -cardiac eval for bilateral lower extremity edema. likely chronic venous stasis based on skin changes and exam will follow with recs while in hospital thank you for allowing me to participate in patients care. ICD Codes: L03.115 - Cellulitis of right lower limb SNOMED: 373965415 (2) Liver cirrhosis ICD Codes: K74.60 - Unspecified cirrhosis of liver SNOMED: [id number] (3) Osteomyelitis of foot, right, acute ICD Codes: M86.171 - Other acute osteomyelitis, right ankle and foot SNOMED: 93440126 Patrick Ga May 16, 2019 18:41
--- NOTE | 2019-05-16 19:29 | NUR ---
HAND-OFF: Report given to AKUA martinez.
[2019-05-16 20:00] VITALS: BP 145/83
--- NOTE | 2019-05-16 20:00 | History and Physical Report ---
DATE OF ADMISSION: 05/15/2019 REASON FOR ADMISSION: Cellulitis. HISTORY: This is a 63-year-old male with multiple medical problems. 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 He presents for evaluation of lower extremity pain and swelling. The patient has significant cellulitis and cellulitic changes. The patient is unable to bear weight. The patient's care discussed and reviewed. The patient is admitted for IV antibiotics and evaluation and possible placement. PAST MEDICAL HISTORY: Notable for CAD, CVA, hypertension, hyperlipidemia, chronic kidney disease, dementia, liver cirrhosis, alcohol abuse, opioid dependence. MEDICATIONS: Reviewed. ALLERGIES: Reviewed. Multiple. SOCIAL HISTORY: The patient has significant polysubstance abuse and tobacco use. PHYSICAL EXAMINATION: GENERAL: A well-appearing male, chronically debilitated. VITAL SIGNS: Reviewed. Blood pressure is elevated. HEENT: Negative. NECK: Supple. LUNGS: Clear. CARDIAC: S1, S2. Regular rate and rhythm. ABDOMEN: Soft. EXTREMITIES: Lower extremities are warm to the touch. Right lower extremity is edematous and erythematous with ulcerative lesions noted over the right great toe as well as the second toe on the right side, noted edema and some venous stasis findings as well. LABORATORY DATA: Otherwise reviewed. IMPRESSION: Significant cellulitis of the right foot with associated edema and erythema, mild anemia, chronic kidney disease per history although negative presently, positive liver enzymes protein-calorie malnutrition. RECOMMENDATIONS: Supportive care. Wound care evaluation. Duplex done which is negative for DVT. Foot x-rays which showed destructive changes. Recommendation, continue the same. Monitor closely for further changes. IV antibiotics, skin care, and likely placement if needed. We will follow closely and recommend further if needed and discuss discharge planning. Serafin Catherine M.D. DR: Linda JOB#: [id number] CC: MEDARDO
--- NOTE | 2019-05-16 20:00 | NUR ---
NURSE NOTES: Received patient comfortably sleeping without complaints.
[2019-05-16] MEDS: Levofloxacin 500mg tab ORAL SCH (20:41)
[2019-05-16] MEDS ORDERED: HYDROcodone/Acetamin 5/325 tab ORAL PRN (22:30)
[2019-05-17 00:13] VITALS: BP 160/90
[2019-05-17 04:40] VITALS: BP 171/101
--- NOTE | 2019-05-17 07:12 | NUR ---
HAND-OFF: Report given to Wendie Aranda RN.
--- NOTE | 2019-05-17 07:30 | NUR ---
nurse notes received patient sleeping ,but arousable no sign of distress, HL patent, on fall precaution,plan of care was discussed verbalized understanding, 4 P's in progress call light w/n reach, will continue to monitor peng valenzuela
--- NOTE | 2019-05-17 08:04 | General Progress Note ---
Assessment/Plan Assessment/Plan: IMPRESSION: Significant cellulitis of the right foot with associated edema and erythema, mild anemia, chronic kidney disease per history , elevated liver enzymes protein-calorie malnutrition. PLAN care as is iv antibiotics placement wound care GS noted impression, plan, and exam edited and reviewed in detail care discussed with RN Subjective Allergies: Coded Allergies: PENICILLINS (Verified Allergy, Unknown, 02/10/17) UNABLE TO ASSESS (Unverified , 03/01/18) Uncoded Allergies: PENICILLIN (Allergy, Unknown, 05/15/19) Subjective overall same Objective Last 24 Hour Vital Signs Date Time Temp Pulse Resp B/P (MAP) Pulse Ox O2 Delivery O2 Flow Rate FiO2 05/17/19 04:56 171/101 05/17/19 04:40 98.0 63 20 171/101 (124) 97 05/17/19 00:13 98.1 67 20 160/90 (113) 96 05/16/19 22:38 98.6 05/16/19 21:00 Room Air 05/16/19 20:00 98.6 75 20 145/83 (103) 96 05/16/19 16:00 98.6 69 17 136/82 (100) 96 05/16/19 12:00 98.3 64 19 145/86 (105) 96 05/16/19 08:25 Room Air Intake and Output 05/16/19 05/17/19 19:00 07:00 Intake Total 525 ml 525.000 ml Balance 525 ml 525.000 ml Intake Oral 250 ml 250 ml IV Total 275 ml 275.000 ml # Voids 3 # Bowel Movements 1 Height (Feet): 6 Height (Inches): 1.00 Weight (Pounds): 219 Objective GENERAL: A well-appearing male, chronically debilitated. HEENT: Negative. NECK: Supple. LUNGS: Clear. CARDIAC: S1, S2. Regular rate and rhythm. ABDOMEN: Soft. EXTREMITIES: Lower extremities are warm to the touch. Right lower extremity is edematous and erythematous with ulcerative lesions noted over the right great toe as well as the second toe on the right side, noted edema and some venous stasis findings as well. Serafin Catherine MD May 17, 2019 08:04
[2019-05-17 08:20] VITALS: BP 156/83
[2019-05-17] MEDS: Heparin 5000 units/ml inj SUBQ SCH ×2 (08:30→20:28)
--- NOTE | 2019-05-17 08:39 | Surgery Progress Note ---
Surgery Progress Note Subjective Additional Comments no acute events comfortable states feels better today no n/v/f/c still with lower extremity edema and discomfort. wants new wheelchair Objective Last 24 Hour Vital Signs Date Time Temp Pulse Resp B/P (MAP) Pulse Ox O2 Delivery O2 Flow Rate FiO2 05/17/19 08:00 Room Air 05/17/19 04:56 171/101 05/17/19 04:40 98.0 63 20 171/101 (124) 97 05/17/19 00:13 98.1 67 20 160/90 (113) 96 05/16/19 22:38 98.6 05/16/19 21:00 Room Air 05/16/19 20:00 98.6 75 20 145/83 (103) 96 05/16/19 16:00 98.6 69 17 136/82 (100) 96 05/16/19 12:00 98.3 64 19 145/86 (105) 96 I&O Intake and Output 05/16/19 05/17/19 19:00 07:00 Intake Total 525 ml 525.000 ml Balance 525 ml 525.000 ml Intake Oral 250 ml 250 ml IV Total 275 ml 275.000 ml # Voids 3 # Bowel Movements 1 Dressing: dry Wound: clean Cardiovascular: RSR Respiratory: clear Abdomen: soft, present bowel sounds, non-distended Extremities: edema, no tenderness, no cyanosis, other Plan Problems: (1) Cellulitis of foot, right Assessment & Plan: Bones/joints: Destructive changes involving the first distal phalanx. Fracture and heterogeneity of the first proximal phalanx. Limited assessment of the second and fourth distal phalanges, cannot exclude fractures or destructive changes. Amputation of the third toe. Degenerative changes throughout the foot. Plantar and posterior calcaneal spurs. Osteopenia. Soft tissues: Soft tissue swelling and edema. Bilateral lower extremity edema pain and difficulty with ambulatory edema on and off for years. now worse past 2 weeks -Keep bilateral lower extremity elevated while in bed or chair -patient is wheelchair use majority of the time and does not walk actively for some time now. states his wheelchair is broken and wants new one. -DVT study noted and negative -cardiac eval for bilateral lower extremity edema. likely chronic venous stasis based on skin changes and exam will follow with recs while in hospital thank you for allowing me to participate in patients care. (2) Liver cirrhosis (3) Osteomyelitis of foot, right, acute Patrick Ga May 17, 2019 08:39
--- NOTE | 2019-05-17 09:15 | NUR ---
*-* INSURANCE *-* ALL CLINICALS AND REVIEWS HAVE BEEN FAXED TO: [facility] ATTN:SCOTTY F: [phone]
[2019-05-17] MEDS: HYDROcodone/Acetamin 10/325 tab ORAL PRN ×3 (09:25→20:27)
[2019-05-17] MEDS: Vancomycin 1gm/D5W 275ml IVPB SCH ×4 (09:43→20:28)
--- NOTE | 2019-05-17 10:05 | NUR ---
nurse notes wound care done on right foot , cleanse with NS , apply chao honey, optiform,and kerlix, tolerated procedure well peng valenzuela
[2019-05-17] MEDS ORDERED: Gadavist 7.5mMol/7.5ml vial IV PRN (11:45)
[2019-05-17 11:49] VITALS: BP_SYST 140; BP_SYST 143; BP_DIAS 61; BP_DIAS 63
[2019-05-17] MEDS ORDERED: NS IV SCH (12:00)
[2019-05-17] MEDS ORDERED: AMIKACIN IV SCH (12:00)
--- NOTE | 2019-05-17 13:29 | NUR ---
Social Work This Sw received a consult due to patient is homeless. This Sw met with patient who appears alert/oriented x4, making his own decisions. Patient admits to a history of depression, anxiety, while currently does not verbalize any suicidal/homicidal ideations. Patient receives between 7-800 dollars per month from SSI. Patient denied any substance abuse, while smoking pack of cigarettes daily. Patient was ambulatory with cane or wheelchair long distances. Patient currently requires assistance with ADLs, ambulation in room due to weakness. SNF recommended, as needed. Pending progress with P.T at this time. Patient explains he does not have any money remaining from his SSI for placement.
[2019-05-17] MEDS: HydrALAZINE 50mg tab ORAL SCH ×2 (13:50→20:29)
[2019-05-17 16:00] VITALS: BP 136/77
--- NOTE | 2019-05-17 16:30 | Consultation ---
DATE OF CONSULTATION: 05/17/2019 INFECTIOUS DISEASE CONSULTATION CONSULTING PHYSICIAN: Valarie Quintana M.D. REFERRING PHYSICIAN: Serafin Catherine M.D. REASON FOR CONSULTATION: Lower extremity cellulitis of the right foot. HISTORY OF PRESENT ILLNESS: This is a 63-year-old gentleman with history of hypertension, coronary artery disease, CVA, hyperlipidemia, chronic kidney disease, cirrhosis and dementia, who comes in with right leg pain and swelling. He was found to have cellulitis and an Infectious Disease consultation has been obtained for antibiotics. PAST MEDICAL HISTORY: 1. History of hypertension. 2. CVA. 3. Coronary artery disease. 4. Hyperlipidemia. 5. Chronic kidney disease. 6. Dementia. 7. Cirrhosis. 8. Opiate dependence. SOCIAL HISTORY: He has a history of smoking and polysubstance abuse as well as alcohol abuse. FAMILY HISTORY: Unknown. REVIEW OF SYSTEMS: Unable to obtain currently. MEDICATIONS: As an inpatient, the patient is on hydralazine, IV amikacin, [place], vancomycin, Protonix, subcutaneous heparin, clonidine, Levaquin, Tylenol, and Mylanta. ALLERGIES: Penicillin. PHYSICAL EXAMINATION: VITAL SIGNS: Temperature 97.9, T-max of 98.6, pulse 60, respiratory rate 18, and blood pressure 156/83. O2 saturation of 97%. HEENT: Pupils are equally reactive to light and accommodation. Mouth appears clean without thrush. NECK: Supple. No adenopathy. No JVD. CARDIOVASCULAR: Regular rate and rhythm. No murmurs. LUNGS: Clear to auscultation bilaterally. No crackles. No wheezes. ABDOMEN: Soft and nontender. No organomegaly. EXTREMITIES: No cyanosis. No clubbing. Edema noted bilaterally. Right foot swelling noted with . LABORATORY AND DIAGNOSTIC DATA: White count 4.4, hemoglobin 12.5, hematocrit 36.1, MCV 96, platelet count 100,000, neutrophils of 41%. Sodium 139, potassium 3.6, chloride 105, bicarb 30, BUN 12, and creatinine 1.2. Glucose 101. Calcium 8.7. Total bilirubin 1, AST 187, ALT 91, and alkaline phosphatase 111. Troponin 0.01. Beta-natriuretic peptide 169. Total protein 9.4, albumin 2.9. UA showing 0 white cells. Blood cultures are negative. Nasal swab was negative for MRSA. Foot x-ray showing destructive changes involving the first distal phalanx, amputation of the third toe. Soft tissue swelling and edema noted. ASSESSMENT: This is a 63-year-old gentleman with history of hypertension and coronary artery disease, who comes in with right leg pain, swelling, and edema and is found to have, 1. Right leg cellulitis. Would be concerned regarding osteomyelitis. 2. Hypertension. 3. Coronary artery disease. PLAN: 1. Continue IV vancomycin and Levaquin. 2. Discontinue amikacin. 3. We will order an MRI of the right foot. I would like to thank Dr. Catherine for this consultation. Valarie Quintana M.D. DR: RAY JOB#: [id number] CC:
--- NOTE | 2019-05-17 17:02 | NUR ---
HOMELESS COORDINATOR HC spoke with patient and patient is alert and oriented. Patient does have a contact number. Patient uses a wheelchair at beside that is currently broke, so he is unable to use. Patient states he is chronically homeless and does want resources for half-way. Patient states he currently stays around the [facility] Patient states he has been homeless for 4years after his is what contributed his homelessness. 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 Patient states his is currently receiving $700-$800 in SSI. Patient states he is not using any kind substances abuse. Patient states he does not suffer from mental illness as well. Patient would like placement upon discharge but states he has also used up his money for the month. Patient states he is willing to use $760 of his income for placement. Patients PCP is BREANA BARTHOLOMEW . HC will call to make a follow-up appointment. Patient continues to require medical intervention. Will continue to monitor and assist as needed.
--- NOTE | 2019-05-17 18:00 | Diagnostic Imaging Report ---
MRI OF THE FOOT WITHOUT CONTRAST Indication: Pain,, swelling Technique: Right foot imaging utilizing multiplanar T1 fast spin-echo, proton and T2 fast spin-echo with fat saturation, and STIR. Comparison: Right foot radiographs dated 08/24/2019; MRI right foot dated 02/10/2017 Findings: There is increased T2 signal with corresponding intermediate T1 signal in the distal and plantar aspect of the second distal phalanx, with associated cortical irregularity, similar in appearance to prior examination. There is increased T2 signal with corresponding low T1 signal in the distal first phalanx, with associated cortical destruction which was seen on prior examination. There is increased bony edema of the first metatarsal head without clear decreased T1 signal. There is bony edema of the subjacent sesamoids. There is diffuse soft tissue edema, more prominent in the plantar surface of the foot, with increased T2 signal in the flexor compartment musculature. IMPRESSION: 1. Chronic osteomyelitis of the first and second distal phalanges as described above. 2. Reactive edema of the first metatarsal head and subjacent sesamoids.
--- NOTE | 2019-05-17 20:01 | NUR ---
CASE MANAGEMENT: REVIEW SI: CELLULITIS BLE . ACUTE OSTEOMYELITIS OF RIGHT FOOT . T 98.0 HR 62 RR 18 BP 171/101 SAT 97% ROOM AIR MRI RIGHT FOOT - CHRONIC OSTEOMYELITIS OF THE FIRST AND SECOND DISTAL PHALANGES IS: VANCO IV Q12HR LEVAQUIN PO Q24HR HYDRALAZINE PO Q8HR MED/SURG STATUS DCP: PATIENT REPORTS HOMELESSNESS
[2019-05-17 20:16] VITALS: BP 127/68
--- NOTE | 2019-05-17 20:20 | NUR ---
NURSE NOTES: Received patient awake,alert,verbal,resting in bed.
[2019-05-17] MEDS: Levofloxacin 500mg tab ORAL SCH (20:28)
[2019-05-18] VITALS (7 sets, daily range): BP systolic 125–146; BP diastolic 70–80
[2019-05-18] MEDS: HydrALAZINE 50mg tab ORAL SCH ×3 (06:02→20:46)
[2019-05-18] MEDS: HYDROcodone/Acetamin 10/325 tab ORAL PRN ×3 (06:03→20:46)
--- NOTE | 2019-05-18 07:18 | NUR ---
HAND-OFF: Report given to Timbo Tsai RN.
[2019-05-18] MEDS: Heparin 5000 units/ml inj SUBQ SCH ×2 (09:00→21:00)
[2019-05-18] MEDS: Vancomycin 1gm/D5W 275ml IVPB SCH ×4 (09:21→20:46)
--- NOTE | 2019-05-18 10:13 | General Progress Note ---
Assessment/Plan Assessment/Plan: IMPRESSION: Significant cellulitis of the right foot with associated edema and erythema, mild anemia, chronic kidney disease per history , elevated liver enzymes protein-calorie malnutrition. chronic osteo PLAN care as is iv antibiotics x 6 wks placement and PICC needed wound care GS noted impression, plan, and exam edited and reviewed in detail care discussed with RN Subjective Allergies: Coded Allergies: PENICILLINS (Verified Allergy, Unknown, 02/10/17) UNABLE TO ASSESS (Unverified , 03/01/18) Uncoded Allergies: PENICILLIN (Allergy, Unknown, 05/15/19) Subjective overall same Objective Last 24 Hour Vital Signs Date Time Temp Pulse Resp B/P (MAP) Pulse Ox O2 Delivery O2 Flow Rate FiO2 05/18/19 08:00 98.5 83 18 138/74 (95) 05/18/19 06:33 97.9 05/18/19 06:02 146/80 05/18/19 04:00 97.9 72 17 146/80 (102) 96 05/18/19 00:00 97.7 73 16 135/77 (96) 97 05/17/19 21:15 Room Air 05/17/19 20:29 127/68 05/17/19 20:16 97.8 66 16 127/68 (87) 95 05/17/19 16:00 98.0 62 18 136/77 (96) 97 05/17/19 13:50 140/63 05/17/19 11:49 98.5 70 19 140/63 (88) 97 Intake and Output 05/17/19 05/18/19 19:00 07:00 Intake Total 1075 ml 275.000 ml Output Total 900 ml Balance 175 ml 275.000 ml Intake Oral 800 ml IV Total 275 ml 275.000 ml Output Urine Total 900 ml # Voids 3 # Bowel Movements 1 Height (Feet): 6 Height (Inches): 1.00 Weight (Pounds): 220 Objective GENERAL: A well-appearing male, chronically debilitated. HEENT: Negative. NECK: Supple. LUNGS: Clear. CARDIAC: S1, S2. Regular rate and rhythm. ABDOMEN: Soft. EXTREMITIES: Lower extremities are warm to the touch. Right lower extremity is edematous and erythematous with ulcerative lesions noted over the right great toe as well as the second toe on the right side, noted edema and some venous stasis findings as well. Ishaaya,Serafin M MD May 18, 2019 10:13
[2019-05-18] MEDS ORDERED: Lidocaine 1% Plain 30 ml INJ PRN (10:15)
[2019-05-18] MEDS ORDERED: Heparin1,000 units/500ml Premix(Conc:2 units/ml) IV PRN (10:15)
--- NOTE | 2019-05-18 10:59 | Infectious Diseases Prog Note ---
Assessment/Plan Assessment/Plan antibiotics : vancomycin iv, levoquin A 1. right foot osteomyelitis 2. hypertension 3. cirrhosis 4. CVA P 1. continue iv vancomycin 39 more days 2. d/c levoquin 3. will follow up Subjective ROS Limited/Unobtainable: Yes Allergies: Coded Allergies: PENICILLINS (Verified Allergy, Unknown, 02/10/17) UNABLE TO ASSESS (Unverified , 03/01/18) Uncoded Allergies: PENICILLIN (Allergy, Unknown, 05/15/19) Objective Vital Signs Last 24 Hour Vital Signs Date Time Temp Pulse Resp B/P (MAP) Pulse Ox O2 Delivery O2 Flow Rate FiO2 05/18/19 08:00 98.5 83 18 138/74 (95) 05/18/19 06:33 97.9 05/18/19 06:02 146/80 05/18/19 04:00 97.9 72 17 146/80 (102) 96 05/18/19 00:00 97.7 73 16 135/77 (96) 97 05/17/19 21:15 Room Air 05/17/19 20:29 127/68 05/17/19 20:16 97.8 66 16 127/68 (87) 95 05/17/19 16:00 98.0 62 18 136/77 (96) 97 05/17/19 13:50 140/63 05/17/19 11:49 98.5 70 19 140/63 (88) 97 Height (Feet): 6 Height (Inches): 1.00 Weight (Pounds): 220 Respiratory/Chest: lungs clear Cardiovascular: normal rate, regular rhythm, no gallop/murmur Abdomen: soft, non tender Extremities: other - right foot edema, in dressings Microbiology Date/Time Source Procedure Growth Status 05/15/19 16:45 Nasal Nares MRSA Culture - Final NO METHICILLIN RESISTANT STAPH AUREUS... Complete Current Medications Medications (Trade) Dose Ordered Sig/Sharla Route PRN Reason Start Time Stop Time Status Last Admin Dose Admin Acetaminophen (Tylenol) 650 mg Q4H PRN ORAL For Pain 05/15/19 17:45 06/14/19 17:44 05/16/19 21:59 Acetaminophen/ Hydrocodone Bitart ([place] 10/325) 1 tab Q4H PRN ORAL Severe Pain (Pain Scale 7-10) 05/16/19 22:30 05/23/19 22:29 05/18/19 10:39 Acetaminophen/ Hydrocodone Bitart ([place] 5/325) 1 tab Q4H PRN ORAL Moderate Pain (Pain Scale 4-6) 05/16/19 22:30 05/23/19 22:29 Al Hydroxide/Mg Hydroxide (Mylanta) 30 ml Q4H PRN ORAL dyspepsia 05/15/19 17:45 06/14/19 17:44 Chlorhexidine Gluconate (Chastity-Hex 2%) 1 applic DAILY@2000 TOPIC 05/18/19 20:00 06/17/19 19:59 Clonidine HCl (Catapres Tab) 0.1 mg Q4H PRN ORAL For High Blood Pressure 05/15/19 21:15 06/14/19 21:14 05/17/19 04:56 Gadobutrol (Gadavist) 7.5 mmol NOW PRN IV Radiology Procedure 05/17/19 11:45 05/19/19 23:59 Heparin Sodium (Porcine) (Heparin 5000 units/ml) 5,000 units EVERY 12 HOURS SUBQ 05/16/19 09:00 06/15/19 08:59 Heparin Sodium/ Sodium Chloride (Heparin 1000 units/500ml Premix) 1,000 unit ONCE PRN IV picc 05/18/19 10:15 05/18/19 23:59 Hydralazine HCl (Apresoline) 50 mg Q8HR ORAL 05/17/19 14:00 06/16/19 13:59 05/18/19 06:02 Levofloxacin (Levaquin) 500 mg Q24H ORAL 05/15/19 21:00 05/22/19 20:59 05/17/19 20:28 Lidocaine HCl (Xylocaine 1% 30ml) 30 ml ONCE PRN INJ picc 05/18/19 10:15 05/18/19 23:59 Pantoprazole (Protonix) 40 mg DAILY ORAL 05/16/19 09:00 06/15/19 08:59 05/18/19 09:21 Vancomycin HCl (Vanco rx to dose) 1 ea DAILY MISC 05/16/19 09:00 06/15/19 08:59 Vancomycin HCl 1 gm/Dextrose 275 ml @ 183.708 mls/hr Q12HR@1000,2200 IVPB 05/16/19 10:00 05/21/19 09:59 05/18/19 09:21 Valarie Quintana MD May 18, 2019 10:59
--- NOTE | 2019-05-18 11:30 | NUR ---
NURSE NOTES: PT AXOX4, CALM, RESTING IN BED. PT EDUCATED ON MD ORDERS FOR PICC FOR DELIVERY DEPARTMENT [employer] [facility]IOT[facility] DUE TO OSTEOMYELITIS. PT VERBALIZED UNDERSTANDING AND SIGNED CONSENT FOR PICC LINE.
--- NOTE | 2019-05-18 13:45 | NUR ---
PT NOTE Attempted to see patient for PT treatment. Patient being taken for PICC line placement, will follow up tomorrow.
--- NOTE | 2019-05-18 13:57 | NUR ---
*-* INSURANCE *-* ALL CLINICALS AND REVIEWS HAVE BEEN FAXED TO: [facility] ATTN:SCOTTY F: [phone]
--- NOTE | 2019-05-18 14:55 | NUR ---
RD ASSESSMENT & RECOMMENDATIONS SEE CARE ACTIVITY FOR COMPLETE ASSESSMENT DAILY ESTIMATED NEEDS: Needs based on cardiac, liver 85.7 kg adj 25-30 kcals/kg 6583-9848 total kcals 1-1.5 g protein/kg 86-129 g total protein Fluid per MD, adm w/ BL LE edema NUTRITION DIAGNOSIS: Decreased sodium needs r/t edema and liver dysfunction as evidenced by pt adm w/ BL LE edema, h/o cirrhosis w/ elev LFT's. CURRENT DIET: Regular PO DIET RECOMMENDATIONS: LOW NA/ SOFT EASY CHEW ADDITIONAL RECOMMENDATIONS: * AM BG mildly elev, rec A1C for eval * Obtain a calibrated bed scale wt for eval * Send high pro snacks in b/w meals . .
--- NOTE | 2019-05-18 15:16 | NUR ---
NURSE NOTES: PT BACK ON UNIT. PICC LINE TO LEFT UPPER ARM, DOUBLE LUMEN. PT EDUCATED ON CARE OF PICC LINE. PT VERBALIZED UNDERSTANDING. PT EDUCATED ON PLAN TO DISCHARGE TO [facility] FOR [facility] ANTIBIOTICS. PT AGREES. IN NO APPARENT DISTRESS AT THIS TIME. WILL CONTINUE TO MONITOR.
--- NOTE | 2019-05-18 15:57 | Diagnostic Imaging Report ---
Indication: lobsterman venous access Findings: After the indications, procedure, risks, complications, and alternatives of the procedure were explained, written informed consent was obtained. The left upper extremity was prepped with alcohol. All elements of maximal sterile barrier technique were followed including usage of a cap, mask, sterile gown, sterile gloves, hand hygiene and a large sterile sheet. Sonographic evaluation of the upper extremity was performed demonstrating a patent and compressible basilic vein. Access was obtained under real-time ultrasound guidance (with utilization of sterile gel and sterile probe cover) and digital image was saved and archived. An .018 wire was introduced. Needle exchanged for a 5 K[place]z peel-away sheath. Measurements were obtained. A 5 [place] dual-lumen Power PICC line catheter was cut to 47 cm and introduced over the wire. Peel-away sheath and wire were removed.Catheter was secured to the skin using 2-0 Prolene suture. Both ports aspirate and flush easily. A single fluoroscopic image shows the distal tip in the superior vena cava. Total fluoroscopic time was 24 seconds. Impression: Successful placement of an upper extremity PICC line catheter
--- NOTE | 2019-05-18 16:44 | NUR ---
DISCHARGE PLANNING Discharge order noted Patient has been referred to: [facility] [phone] < Spoke with Haylee, not accepting patient due to [facility] history [place] [facility] [phone] Await Acceptance and Room Number
--- NOTE | 2019-05-18 17:49 | Surgery Progress Note ---
Surgery Progress Note Subjective Additional Comments no acute events comfortable stable. Objective Last 24 Hour Vital Signs Date Time Temp Pulse Resp B/P (MAP) Pulse Ox O2 Delivery O2 Flow Rate FiO2 05/18/19 16:00 98.0 73 18 146/73 (97) 05/18/19 11:46 98.5 60 18 138/78 (98) 100 05/18/19 09:00 Room Air 05/18/19 08:00 98.5 83 18 138/74 (95) 05/18/19 06:33 97.9 05/18/19 06:02 146/80 05/18/19 04:00 97.9 72 17 146/80 (102) 96 05/18/19 00:00 97.7 73 16 135/77 (96) 97 05/17/19 21:15 Room Air 05/17/19 20:29 127/68 05/17/19 20:16 97.8 66 16 127/68 (87) 95 I&O Intake and Output 05/17/19 05/18/19 19:00 07:00 Intake Total 1075 ml 275.000 ml Output Total 900 ml Balance 175 ml 275.000 ml Intake Oral 800 ml IV Total 275 ml 275.000 ml Output Urine Total 900 ml # Voids 3 # Bowel Movements 1 Drains: none Cardiovascular: RSR Respiratory: clear Abdomen: soft, non-tender, present bowel sounds, non-distended Extremities: edema, other Plan Problems: (1) Cellulitis of foot, right Assessment & Plan: Bones/joints: Destructive changes involving the first distal phalanx. Fracture and heterogeneity of the first proximal phalanx. Limited assessment of the second and fourth distal phalanges, cannot exclude fractures or destructive changes. Amputation of the third toe. Degenerative changes throughout the foot. Plantar and posterior calcaneal spurs. Osteopenia. Soft tissues: Soft tissue swelling and edema. Bilateral lower extremity edema pain and difficulty with ambulatory edema on and off for years. now worse past 2 weeks -Keep bilateral lower extremity elevated while in bed or chair -patient is wheelchair use majority of the time and does not walk actively for some time now. states his wheelchair is broken and wants new one. -DVT study noted and negative -picc for iv abx x 6 weeks appreciate Id input will follow with recs while in hospital thank you for allowing me to participate in patients care. (2) Liver cirrhosis (3) Osteomyelitis of foot, right, acute Patrick Ga May 18, 2019 17:49
--- NOTE | 2019-05-18 19:21 | NUR ---
HAND-OFF: Report given to Xuan SÁNCHEZ RN.
--- NOTE | 2019-05-18 19:24 | NUR ---
NURSE NOTES: Received patient comfortably resting in bed without complaints.
[2019-05-18] MEDS: Dyna-Hex 2% Top Sol 2oz TOPIC SCH (20:46)
--- NOTE | 2019-05-19 03:34 | NUR ---
HAND-OFF: Report given to AKUA Contreras.
[2019-05-19 04:00] VITALS: BP 153/87
[2019-05-19] MEDS: HydrALAZINE 50mg tab ORAL SCH ×3 (05:31→21:46)
[2019-05-19] MEDS: HYDROcodone/Acetamin 10/325 tab ORAL PRN ×4 (05:31→21:46)
--- NOTE | 2019-05-19 06:55 | NUR ---
HAND-OFF: Report given to AKUA Izquierdo.
[2019-05-19 08:00] VITALS: BP 131/72
[2019-05-19] MEDS: Heparin 5000 units/ml inj SUBQ SCH ×2 (08:46→19:54)
--- NOTE | 2019-05-19 08:58 | General Progress Note ---
Assessment/Plan Assessment/Plan: IMPRESSION: Significant cellulitis of the right foot with associated edema and erythema, mild anemia, chronic kidney disease per history , elevated liver enzymes protein-calorie malnutrition. chronic osteo, s/p PICC PLAN care as is iv antibiotics x 38 more days needs placement impression, plan, and exam edited and reviewed in detail care discussed with RN Subjective Allergies: Coded Allergies: PENICILLINS (Verified Allergy, Unknown, 02/10/17) UNABLE TO ASSESS (Unverified , 03/01/18) Uncoded Allergies: PENICILLIN (Allergy, Unknown, 05/15/19) Subjective overall same Objective Last 24 Hour Vital Signs Date Time Temp Pulse Resp B/P (MAP) Pulse Ox O2 Delivery O2 Flow Rate FiO2 05/19/19 08:00 98.4 103 18 131/72 (91) 97 05/19/19 05:31 153/87 05/19/19 04:00 99.1 77 16 153/87 (109) 98 05/18/19 23:51 99.5 84 18 125/80 (95) 97 05/18/19 21:16 99.2 05/18/19 20:46 142/70 05/18/19 20:07 Room Air 05/18/19 20:00 99.2 79 18 142/70 (94) 96 05/18/19 16:00 98.0 73 18 146/73 (97) 05/18/19 11:46 98.5 60 18 138/78 (98) 100 05/18/19 09:00 Room Air Intake and Output 05/18/19 05/19/19 19:00 07:00 Intake Total 875.000 ml 275.000 ml Output Total 800 ml 1000 ml Balance 75.000 ml -725.000 ml Intake Oral 360 ml IV Total 275.000 ml 275.000 ml Other 240 ml Output Urine Total 800 ml 1000 ml # Voids 5 # Bowel Movements 2 Height (Feet): 6 Height (Inches): 1.00 Weight (Pounds): 220 Objective GENERAL: A well-appearing male, chronically debilitated. HEENT: Negative. NECK: Supple. LUNGS: Clear. CARDIAC: S1, S2. Regular rate and rhythm. ABDOMEN: Soft. EXTREMITIES: Lower extremities are warm to the touch. Right lower extremity is edematous and erythematous with ulcerative lesions noted over the right great toe as well as the second toe on the right side, noted edema and some venous stasis findings as well. Serafin Catherine MD May 19, 2019 08:58
[2019-05-19] MEDS: Vancomycin 1gm/D5W 275ml IVPB SCH ×4 (10:38→21:47)
--- NOTE | 2019-05-19 11:42 | NUR ---
NURSE NOTES: PT AXOX4, CALM, RESTING IN BED. RN ADMINISTERED PRN [place] 10/325MG ORDERED. LEFT UPPER ARM PICC LINE DRESSING CHANGED. BOTH LUMENS ARE INTACT AND PATENT. IN NO APPARENT DISTRESS AT THIS TIME. LEFT FOOT DRESSING CLEAN AND DRY. CALL LIGHT WITHIN REACH. PT'S OWN WHEELCHAIR PRESENT AT BEDSIDE. BED IN LOWEST POSITION. WILL CONTINUE TO MONITOR.
[2019-05-19 12:00] VITALS: BP 141/77
--- NOTE | 2019-05-19 14:32 | NUR ---
*-* INSURANCE *-* ALL CLINICALS AND REVIEWS HAVE BEEN FAXED TO: [facility] ATTN:SCOTTY F: [phone]
--- NOTE | 2019-05-19 14:42 | Surgery Progress Note ---
Surgery Progress Note Subjective Additional Comments no acute events comfortable stable Objective Last 24 Hour Vital Signs Date Time Temp Pulse Resp B/P (MAP) Pulse Ox O2 Delivery O2 Flow Rate FiO2 05/19/19 12:00 98.6 77 17 141/77 (98) 98 05/19/19 09:00 Room Air 05/19/19 08:00 98.4 103 18 131/72 (91) 97 05/19/19 05:31 153/87 05/19/19 04:00 99.1 77 16 153/87 (109) 98 05/18/19 23:51 99.5 84 18 125/80 (95) 97 05/18/19 21:16 99.2 05/18/19 20:46 142/70 05/18/19 20:07 Room Air 05/18/19 20:00 99.2 79 18 142/70 (94) 96 05/18/19 16:00 98.0 73 18 146/73 (97) I&O Intake and Output 05/18/19 05/19/19 19:00 07:00 Intake Total 875.000 ml 275.000 ml Output Total 800 ml 1000 ml Balance 75.000 ml -725.000 ml Intake Oral 360 ml IV Total 275.000 ml 275.000 ml Other 240 ml Output Urine Total 800 ml 1000 ml # Voids 5 # Bowel Movements 2 Plan Problems: (1) Cellulitis of foot, right Assessment & Plan: Bones/joints: Destructive changes involving the first distal phalanx. Fracture and heterogeneity of the first proximal phalanx. Limited assessment of the second and fourth distal phalanges, cannot exclude fractures or destructive changes. Amputation of the third toe. Degenerative changes throughout the foot. Plantar and posterior calcaneal spurs. Osteopenia. Soft tissues: Soft tissue swelling and edema. Bilateral lower extremity edema pain and difficulty with ambulatory edema on and off for years. now worse past 2 weeks -Keep bilateral lower extremity elevated while in bed or chair -patient is wheelchair use majority of the time and does not walk actively for some time now. states his wheelchair is broken and wants new one. -DVT study noted and negative -picc for iv abx x 6 weeks appreciate Id input will follow with recs while in hospital thank you for allowing me to participate in patients care. (2) Liver cirrhosis (3) Osteomyelitis of foot, right, acute Patrick Ga May 19, 2019 14:42
[2019-05-19 16:00] VITALS: BP 126/81
--- NOTE | 2019-05-19 16:31 | Infectious Diseases Prog Note ---
Assessment/Plan Assessment/Plan A 1. right foot osteomyelitis 2. hypertension 3. cirrhosis 4. CVA P 1. continue iv vancomycin 38 more days 2. will follow up Subjective ROS Limited/Unobtainable: No Constitutional: Reports: no symptoms Respiratory: Reports: no symptoms Cardiovascular: Reports: no symptoms Gastrointestinal/Abdominal: Reports: no symptoms Musculoskeletal: Reports: other - pain in both feet Allergies: Coded Allergies: PENICILLINS (Verified Allergy, Unknown, 02/10/17) UNABLE TO ASSESS (Unverified , 03/01/18) Uncoded Allergies: PENICILLIN (Allergy, Unknown, 05/15/19) Objective Vital Signs Last 24 Hour Vital Signs Date Time Temp Pulse Resp B/P (MAP) Pulse Ox O2 Delivery O2 Flow Rate FiO2 05/19/19 14:47 141/77 05/19/19 12:00 98.6 77 17 141/77 (98) 98 05/19/19 09:00 Room Air 05/19/19 08:00 98.4 103 18 131/72 (91) 97 05/19/19 05:31 153/87 05/19/19 04:00 99.1 77 16 153/87 (109) 98 05/18/19 23:51 99.5 84 18 125/80 (95) 97 05/18/19 21:16 99.2 05/18/19 20:46 142/70 05/18/19 20:07 Room Air 05/18/19 20:00 99.2 79 18 142/70 (94) 96 Height (Feet): 6 Height (Inches): 1.00 Weight (Pounds): 220 General Appearance: no acute distress HEENT: mucous membranes moist Respiratory/Chest: lungs clear Cardiovascular: normal rate, other - left arm PICC line Abdomen: soft, non tender Extremities: no edema, other - R foot dressing Skin: no rash Neurologic/Psychiatric: alert, oriented x 3, responsive Current Medications Medications (Trade) Dose Ordered Sig/Sharla Route PRN Reason Start Time Stop Time Status Last Admin Dose Admin Acetaminophen (Tylenol) 650 mg Q4H PRN ORAL For Pain 05/15/19 17:45 06/14/19 17:44 05/16/19 21:59 Acetaminophen/ Hydrocodone Bitart ([place] 10/325) 1 tab Q4H PRN ORAL Severe Pain (Pain Scale 7-10) 05/16/19 22:30 8/19/19 22:29 05/19/19 14:47 Acetaminophen/ Hydrocodone Bitart ([place] 5/325) 1 tab Q4H PRN ORAL Moderate Pain (Pain Scale 4-6) 05/16/19 22:30 05/23/19 22:29 Al Hydroxide/Mg Hydroxide (Mylanta) 30 ml Q4H PRN ORAL dyspepsia 05/15/19 17:45 06/14/19 17:44 Chlorhexidine Gluconate (Chastity-Hex 2%) 1 applic DAILY@2000 TOPIC 05/18/19 20:00 06/17/19 19:59 05/18/19 20:46 Clonidine HCl (Catapres Tab) 0.1 mg Q4H PRN ORAL For High Blood Pressure 05/15/19 21:15 06/14/19 21:14 05/17/19 04:56 Gadobutrol (Gadavist) 7.5 mmol NOW PRN IV Radiology Procedure 05/17/19 11:45 05/19/19 23:59 Heparin Sodium (Porcine) (Heparin 5000 units/ml) 5,000 units EVERY 12 HOURS SUBQ 05/16/19 09:00 06/15/19 08:59 Hydralazine HCl (Apresoline) 50 mg Q8HR ORAL 05/17/19 14:00 06/16/19 13:59 05/19/19 14:47 Pantoprazole (Protonix) 40 mg DAILY ORAL 05/16/19 09:00 06/15/19 08:59 05/19/19 08:46 Vancomycin HCl (Vanco rx to dose) 1 ea DAILY MISC 05/16/19 09:00 06/15/19 08:59 Vancomycin HCl 1 gm/Dextrose 275 ml @ 183.708 mls/hr Q12HR@1000,2200 IVPB 05/16/19 10:00 05/21/19 09:59 05/19/19 10:38 Edis Irving MD May 19, 2019 16:31
--- NOTE | 2019-05-19 16:31 | NUR ---
DISCHARGE PLANNING Discharge order noted Patient has been referred to; [facility] [phone] [facility] [phone] [facility] [phone] [facility] [phone] [facility] [phone] [facility] [phone] [facility] [phone] Await Acceptance
--- NOTE | 2019-05-19 19:05 | NUR ---
HAND-OFF: Report given to Xuan GONZALEZ RN.
--- NOTE | 2019-05-19 19:30 | NUR ---
NURSE NOTES: Patient awake in bed, watching TV, alert and oriented x4. Asking for pain medicine. Will medicate as ordered. Instructed the use of call light. Call light and needs in reach. Bed in lowest position, lock engaged and alarm on. Will continue to monitor.
[2019-05-19 20:00] VITALS: BP 143/78
[2019-05-19] MEDS: Dyna-Hex 2% Top Sol 2oz TOPIC SCH (21:58)
[2019-05-20] VITALS: BP 139/76
[2019-05-20 04:00] VITALS: BP 146/79
[2019-05-20] MEDS: HYDROcodone/Acetamin 10/325 tab ORAL PRN ×3 (05:04→21:13)
[2019-05-20] MEDS: HydrALAZINE 50mg tab ORAL SCH ×3 (05:04→21:08)
[2019-05-20 06:49] LABS: ANION GAP 8 mmol/L (5-15); BLOOD UREA NITROGEN 17 mg/dL (7-18); CALCIUM 8.9 MG/DL (8.5-10.1); CARBON DIOXIDE 25 MMOL/L (21-32); CHLORIDE 106 MMOL/L (98-107); CREATININE 1.2 MG/DL (0.55-1.30); POTASSIUM 3.5 MMOL/L (3.5-5.1); SODIUM 139 MMOL/L (136-145)
--- NOTE | 2019-05-20 07:25 | NUR ---
HAND-OFF: Report given to AKUA Haddad.
[2019-05-20 08:00] VITALS: BP_SYST 149; BP_DIAS 80; BP_DIAS 84
--- NOTE | 2019-05-20 08:16 | NUR ---
NURSE NOTES: Patient is asleep. No s/s of distress. Side rails are up x2, bed is locked, in lowest position, and call light is within reach. Will continue to monitor
[2019-05-20] MEDS: Heparin 5000 units/ml inj SUBQ SCH ×2 (09:00→20:41)
[2019-05-20] MEDS: Vancomycin 1.25gm Premix IVPB SCH ×2 (11:36→22:42)
[2019-05-20 12:00] VITALS: BP 148/75
--- NOTE | 2019-05-20 12:03 | NUR ---
SS note This Sw faxed referral to [facility] @ [phone]. . [phone].
--- NOTE | 2019-05-20 12:15 | General Progress Note ---
Assessment/Plan Assessment/Plan: IMPRESSION: Significant cellulitis of the right foot with associated edema and erythema, mild anemia, chronic kidney disease per history , elevated liver enzymes protein-calorie malnutrition. chronic osteo, s/p PICC PLAN care as is iv antibiotics x 38 more days needs placement impression, plan, and exam edited and reviewed in detail care discussed with RN Subjective Allergies: Coded Allergies: PENICILLINS (Verified Allergy, Unknown, 02/10/17) UNABLE TO ASSESS (Unverified , 03/01/18) Uncoded Allergies: PENICILLIN (Allergy, Unknown, 05/15/19) Subjective overall same Objective Last 24 Hour Vital Signs Date Time Temp Pulse Resp B/P (MAP) Pulse Ox O2 Delivery O2 Flow Rate FiO2 05/20/19 12:00 98.9 97 18 148/75 (99) 94 05/20/19 08:00 98.8 74 17 149/80 (103) 94 05/20/19 08:00 Room Air 05/20/19 05:04 165/82 05/20/19 04:00 98.1 81 17 146/79 (101) 97 05/20/19 00:00 97.9 83 18 139/76 (97) 99 05/19/19 21:46 143/78 05/19/19 21:00 Room Air 05/19/19 20:00 97.6 80 17 143/78 (99) 97 05/19/19 16:00 97.8 76 17 126/81 (96) 100 05/19/19 14:47 141/77 Intake and Output 05/19/19 05/20/19 19:00 07:00 Intake Total 755.000 ml 675.000 ml Balance 755.000 ml 675.000 ml Intake Oral 400 ml IV Total 275.000 ml 275.000 ml Other 480 ml # Voids 3 4 Laboratory Tests 05/20/19 04:50: Sodium Level 139, Potassium Level 3.5, Chloride Level 106, Carbon Dioxide Level 25, Anion Gap 8, Blood Urea Nitrogen 17, Creatinine 1.2, Estimat Glomerular Filtration Rate > 60, Glucose Level 106, Calcium Level 8.9 05/20/19 08:54: Vancomycin Level Trough 13.3H Height (Feet): 6 Height (Inches): 1.00 Weight (Pounds): 220 Objective GENERAL: A well-appearing male, chronically debilitated. HEENT: Negative. NECK: Supple. LUNGS: Clear. CARDIAC: S1, S2. Regular rate and rhythm. ABDOMEN: Soft. EXTREMITIES: Lower extremities are warm to the touch. Right lower extremity is edematous and erythematous with ulcerative lesions noted over the right great toe as well as the second toe on the right side, noted edema and some venous stasis findings as well. Serafin Catherine MD May 20, 2019 12:15
--- NOTE | 2019-05-20 12:16 | Infectious Diseases Prog Note ---
Assessment/Plan Assessment/Plan A 1. right foot osteomyelitis 2. hypertension 3. cirrhosis 4. CVA 5. Penicillin allergy P 1. continue iv vancomycin 37 more days 2. will follow up Subjective ROS Limited/Unobtainable: No Constitutional: Reports: no symptoms Respiratory: Reports: no symptoms Cardiovascular: Reports: no symptoms Gastrointestinal/Abdominal: Reports: no symptoms Musculoskeletal: Reports: pain, other - in right foot with walking Allergies: Coded Allergies: PENICILLINS (Verified Allergy, Unknown, 02/10/17) UNABLE TO ASSESS (Unverified , 03/01/18) Uncoded Allergies: PENICILLIN (Allergy, Unknown, 05/15/19) Objective Vital Signs Last 24 Hour Vital Signs Date Time Temp Pulse Resp B/P (MAP) Pulse Ox O2 Delivery O2 Flow Rate FiO2 05/20/19 08:00 98.8 74 17 149/80 (103) 94 05/20/19 05:04 165/82 05/20/19 04:00 98.1 81 17 146/79 (101) 97 05/20/19 00:00 97.9 83 18 139/76 (97) 99 05/19/19 21:46 143/78 05/19/19 21:00 Room Air 05/19/19 20:00 97.6 80 17 143/78 (99) 97 05/19/19 16:00 97.8 76 17 126/81 (96) 100 05/19/19 14:47 141/77 Height (Feet): 6 Height (Inches): 1.00 Weight (Pounds): 220 General Appearance: no acute distress HEENT: mucous membranes moist Respiratory/Chest: lungs clear Cardiovascular: normal rate Abdomen: soft, non tender Extremities: other - edema of R leg Skin: other - chronic skin changes in both legs Neurologic/Psychiatric: alert, oriented x 3, responsive Laboratory Tests Test 05/20/19 04:50 05/20/19 08:54 Sodium Level 139 MMOL/L (136-145) Potassium Level 3.5 MMOL/L (3.5-5.1) Chloride Level 106 MMOL/L (98-107) Carbon Dioxide Level 25 MMOL/L (21-32) Anion Gap 8 mmol/L (5-15) Blood Urea Nitrogen 17 mg/dL (7-18) Creatinine 1.2 MG/DL (0.55-1.30) Estimat Glomerular Filtration Rate > 60 mL/min (>60) Glucose Level 106 MG/DL (74-106) Calcium Level 8.9 MG/DL (8.5-10.1) Vancomycin Level Trough 13.3 ug/mL (5.0-12.0) H Current Medications Medications (Trade) Dose Ordered Sig/Sharla Route PRN Reason Start Time Stop Time Status Last Admin Dose Admin Acetaminophen (Tylenol) 650 mg Q4H PRN ORAL For Pain 05/15/19 17:45 06/14/19 17:44 05/16/19 21:59 Acetaminophen/ Hydrocodone Bitart ([place] 10/325) 1 tab Q4H PRN ORAL Severe Pain (Pain Scale 7-10) 05/16/19 22:30 05/23/19 22:29 05/20/19 11:43 Acetaminophen/ Hydrocodone Bitart ([place] 5/325) 1 tab Q4H PRN ORAL Moderate Pain (Pain Scale 4-6) 05/16/19 22:30 05/23/19 22:29 Al Hydroxide/Mg Hydroxide (Mylanta) 30 ml Q4H PRN ORAL dyspepsia 05/15/19 17:45 06/14/19 17:44 Chlorhexidine Gluconate (Chastity-Hex 2%) 1 applic DAILY@2000 TOPIC 05/18/19 20:00 06/17/19 19:59 05/19/19 21:58 Clonidine HCl (Catapres Tab) 0.1 mg Q4H PRN ORAL For High Blood Pressure 05/15/19 21:15 06/14/19 21:14 05/17/19 04:56 Heparin Sodium (Porcine) (Heparin 5000 units/ml) 5,000 units EVERY 12 HOURS SUBQ 05/16/19 09:00 06/15/19 08:59 Hydralazine HCl (Apresoline) 50 mg Q8HR ORAL 05/17/19 14:00 06/16/19 13:59 05/20/19 05:04 Pantoprazole (Protonix) 40 mg DAILY ORAL 05/16/19 09:00 06/15/19 08:59 05/20/19 10:16 Vancomycin HCl (Vanco rx to dose) 1 ea DAILY MISC 05/16/19 09:00 06/15/19 08:59 Vancomycin HCl/ Dextrose 275 ml @ 183.333 mls/hr Q12HR@1100,2300 IVPB 05/20/19 11:00 05/25/19 10:59 05/20/19 11:36 Edis Irving MD May 20, 2019 12:16
--- NOTE | 2019-05-20 13:13 | NUR ---
SS note This SW spoke with [facility], [facility] ([phone]) explains they do not have any openings today, but will evaluate patient and place a waiting list. SW to follow.
--- NOTE | 2019-05-20 13:41 | Surgery Progress Note ---
Surgery Progress Note Subjective Additional Comments no acute events comfortable stable no complaints exam stable on IV Abx Objective Last 24 Hour Vital Signs Date Time Temp Pulse Resp B/P (MAP) Pulse Ox O2 Delivery O2 Flow Rate FiO2 05/20/19 12:00 98.9 97 18 148/75 (99) 94 05/20/19 08:00 98.8 74 17 149/80 (103) 94 05/20/19 08:00 Room Air 05/20/19 05:04 165/82 05/20/19 04:00 98.1 81 17 146/79 (101) 97 05/20/19 00:00 97.9 83 18 139/76 (97) 99 05/19/19 21:46 143/78 05/19/19 21:00 Room Air 05/19/19 20:00 97.6 80 17 143/78 (99) 97 05/19/19 16:00 97.8 76 17 126/81 (96) 100 05/19/19 14:47 141/77 I&O Intake and Output 05/19/19 05/20/19 19:00 07:00 Intake Total 755.000 ml 675.000 ml Balance 755.000 ml 675.000 ml Intake Oral 400 ml IV Total 275.000 ml 275.000 ml Other 480 ml # Voids 3 4 Dressing: dry Wound: clean Cardiovascular: RSR Respiratory: clear Abdomen: soft, present bowel sounds Extremities: other Laboratory Tests Test 05/20/19 04:50 05/20/19 08:54 Sodium Level 139 MMOL/L (136-145) Potassium Level 3.5 MMOL/L (3.5-5.1) Chloride Level 106 MMOL/L (98-107) Carbon Dioxide Level 25 MMOL/L (21-32) Anion Gap 8 mmol/L (5-15) Blood Urea Nitrogen 17 mg/dL (7-18) Creatinine 1.2 MG/DL (0.55-1.30) Estimat Glomerular Filtration Rate > 60 mL/min (>60) Glucose Level 106 MG/DL (74-106) Calcium Level 8.9 MG/DL (8.5-10.1) Vancomycin Level Trough 13.3 ug/mL (5.0-12.0) H Plan Problems: (1) Cellulitis of foot, right Assessment & Plan: Bones/joints: Destructive changes involving the first distal phalanx. Fracture and heterogeneity of the first proximal phalanx. Limited assessment of the second and fourth distal phalanges, cannot exclude fractures or destructive changes. Amputation of the third toe. Degenerative changes throughout the foot. Plantar and posterior calcaneal spurs. Osteopenia. Soft tissues: Soft tissue swelling and edema. Bilateral lower extremity edema pain and difficulty with ambulatory edema on and off for years. now worse past 2 weeks -Keep bilateral lower extremity elevated while in bed or chair -patient is wheelchair use majority of the time and does not walk actively for some time now. states his wheelchair is broken and wants new one. -DVT study noted and negative -picc for iv abx x 6 weeks appreciate Id input will follow with recs while in hospital thank you for allowing me to participate in patients care. (2) Liver cirrhosis (3) Osteomyelitis of foot, right, acute SuryPatrick May 20, 2019 13:41
--- NOTE | 2019-05-20 14:50 | NUR ---
SS note Malena from [facility] explains patient does not meet criteria for their facility; will need documentation from nursing and/or therapy stating independence with ADLs. Patient will possibly need IV Antibiotics (Home Care will need to be arranged if accepted into [facility]).
[2019-05-20 16:00] VITALS: BP 141/79
--- NOTE | 2019-05-20 19:39 | NUR ---
HAND-OFF: Report given to AKUA Lyman.
--- NOTE | 2019-05-20 19:50 | NUR ---
NURSE NOTES: Pt received awake in bed, head of bed elevated, no c/o pain or signs of distress, able to make needs known, call light within reach, will continue to monitor.
[2019-05-20 20:00] VITALS: BP 151/84
[2019-05-20] MEDS: Dyna-Hex 2% Top Sol 2oz TOPIC SCH (20:40)
[2019-05-21] VITALS: BP 152/84
[2019-05-21 04:00] VITALS: BP 108/55
[2019-05-21] MEDS: HydrALAZINE 50mg tab ORAL SCH ×3 (05:43→21:07)
--- NOTE | 2019-05-21 07:24 | NUR ---
HAND-OFF: Report given to AKUA Dowling.
[2019-05-21 07:35] LABS: BASOPHILS % (AUTO) 1.9 % (0.0-2.0); EOSINOPHILS % (AUTO) 5.9 % (0.0-3.0); HEMATOCRIT 37.8 % (42.0-52.0); HEMOGLOBIN 12.9 G/DL (14.2-18.0); LYMPHOCYTES % (AUTO) 51.5 % (20.0-45.0); MEAN CORPUSCULAR VOLUME 97 FL (80-99); MONOCYTES % (AUTO) 9.5 % (1.0-10.0); NEUTROPHILS % (AUTO) 31.2 % (45.0-75.0); PLATELET COUNT 110 K/UL (150-450); RED BLOOD COUNT 3.91 M/UL (4.70-6.10); RED CELL DISTRIBUTION WIDTH 11.5 % (11.6-14.8); WHITE BLOOD COUNT 6.4 K/UL (4.8-10.8)
[2019-05-21 08:00] VITALS: BP 149/90
--- NOTE | 2019-05-21 08:08 | NUR ---
NURSE NOTES: Patient alert x4, on room air, no sign of distress and shortness of breath; no sing of chest pain; IV Left-Upper PICC line flushes well; Urinal within reach; dressing on Left lower leg dry and intact. side rails up x2, breaks engaged, bed at lowest position. will keep monitoring.
[2019-05-21] MEDS: Heparin 5000 units/ml inj SUBQ SCH ×2 (08:34→20:04)
--- NOTE | 2019-05-21 08:34 | NUR ---
NURSE NOTES: Patient's platelet was low and hold Heparin.
[2019-05-21] MEDS: Vancomycin 1.25gm Premix IVPB SCH ×2 (11:03→23:35)
[2019-05-21 12:00] VITALS: BP 143/85
[2019-05-21 16:00] VITALS: BP 156/84
--- NOTE | 2019-05-21 16:45 | Pulmonology Progress Note ---
Assessment/Plan Assessment/Plan Pulmonary Progress Note Assessment/Plan: IMPRESSION: Significant cellulitis of the right foot with associated edema and erythema, mild anemia, chronic kidney disease per history , elevated liver enzymes protein-calorie malnutrition. chronic osteo, s/p PICC PLAN care as is iv antibiotics x 38 more days needs placement impression, plan, and exam edited and reviewed in detail care discussed with RN Subjective overall same Objective Vital Signs Noted Laboratory Tests 05/20/19 04:50: Sodium Level 139, Potassium Level 3.5, Chloride Level 106, Carbon Dioxide Level 25, Anion Gap 8, Blood Urea Nitrogen 17, Creatinine 1.2, Estimat Glomerular Filtration Rate > 60, Glucose Level 106, Calcium Level 8.9 05/20/19 08:54: Vancomycin Level Trough 13.3H Height (Feet): 6 Height (Inches): 1.00 Weight (Pounds): 220 Objective GENERAL: A well-appearing male, chronically debilitated. HEENT: Negative. NECK: Supple. LUNGS: Clear. CARDIAC: S1, S2. Regular rate and rhythm. ABDOMEN: Soft. EXTREMITIES: Lower extremities are warm to the touch. Right lower extremity is edematous and erythematous with ulcerative lesions noted over the right great toe as well as the second toe on the right side, noted edema and some venous stasis findings as well. Subjective ROS Limited/Unobtainable: No Allergies: Coded Allergies: PENICILLINS (Verified Allergy, Unknown, 02/10/17) UNABLE TO ASSESS (Unverified , 03/01/18) Uncoded Allergies: PENICILLIN (Allergy, Unknown, 05/15/19) Objective Last 24 Hour Vital Signs Date Time Temp Pulse Resp B/P (MAP) Pulse Ox O2 Delivery O2 Flow Rate FiO2 05/21/19 16:00 97.0 96 18 156/84 (108) 97 05/21/19 13:08 143/85 05/21/19 12:00 98.2 77 17 143/85 (104) 98 05/21/19 09:00 Room Air 05/21/19 08:00 98.1 99 18 149/90 (109) 98 05/21/19 05:43 144/89 05/21/19 04:00 98.9 68 20 108/55 (72) 95 05/21/19 00:00 99.0 80 20 152/84 (106) 97 8/16/19 21:08 151/84 05/20/19 21:00 Room Air 05/20/19 20:00 99.4 84 20 151/84 (106) 97 Intake and Output 05/20/19 05/21/19 18:59 06:59 Intake Total 720 ml 1086.666 ml Output Total 650 ml 650 ml Balance 70 ml 436.666 ml Intake Oral 720 ml 240 ml IV Total 366.666 ml Other 480 ml Output Urine Total 650 ml 650 ml # Voids 2 2 # Bowel Movements 2 Laboratory Tests 05/21/19 06:30: White Blood Count 6.4, Red Blood Count 3.91L, Hemoglobin 12.9L, Hematocrit 37.8L , Mean Corpuscular Volume 97, Mean Corpuscular Hemoglobin 32.9H, Mean Corpuscular Hemoglobin Concent 34.0, Red Cell Distribution Width 11.5L, Platelet Count 110L, Mean Platelet Volume 7.8, Neutrophils (%) (Auto) 31.2L, Lymphocytes (%) (Auto) 51.5H, Monocytes (%) (Auto) 9.5, Eosinophils (%) (Auto) 5.9H, Basophils (%) (Auto) 1.9 Current Medications Medications (Trade) Dose Ordered Sig/Sharla Route PRN Reason Start Time Stop Time Status Last Admin Dose Admin Acetaminophen (Tylenol) 650 mg Q4H PRN ORAL For Pain 05/15/19 17:45 06/14/19 17:44 05/16/19 21:59 Acetaminophen/ Hydrocodone Bitart ([place] 10/325) 1 tab Q4H PRN ORAL Severe Pain (Pain Scale 7-10) 05/16/19 22:30 05/23/19 22:29 05/20/19 21:13 Acetaminophen/ Hydrocodone Bitart ([place] 5/325) 1 tab Q4H PRN ORAL Moderate Pain (Pain Scale 4-6) 05/16/19 22:30 05/23/19 22:29 Al Hydroxide/Mg Hydroxide (Mylanta) 30 ml Q4H PRN ORAL dyspepsia 05/15/19 17:45 06/14/19 17:44 Chlorhexidine Gluconate (Chastity-Hex 2%) 1 applic DAILY@2000 TOPIC 05/18/19 20:00 06/17/19 19:59 05/20/19 20:40 Clonidine HCl (Catapres Tab) 0.1 mg Q4H PRN ORAL For High Blood Pressure 05/15/19 21:15 06/14/19 21:14 05/17/19 04:56 Heparin Sodium (Porcine) (Heparin 5000 units/ml) 5,000 units EVERY 12 HOURS SUBQ 05/16/19 09:00 06/15/19 08:59 Hydralazine HCl (Apresoline) 50 mg Q8HR ORAL 05/17/19 14:00 06/16/19 13:59 05/21/19 13:08 Pantoprazole (Protonix) 40 mg DAILY ORAL 05/16/19 09:00 06/15/19 08:59 05/21/19 08:33 Vancomycin HCl (Vanco rx to dose) 1 ea DAILY MISC 05/16/19 09:00 06/15/19 08:59 Vancomycin HCl/ Dextrose 275 ml @ 183.333 mls/hr Q12HR@1100,2300 IVPB 05/20/19 11:00 06/26/19 23:59 05/21/19 11:03 Kain Bales MD May 21, 2019 16:45
--- NOTE | 2019-05-21 19:32 | NUR ---
NURSE NOTES: Pt received in bed, head of bed elevated, no c/o pain or signs of distress, foot wrapped with kerlix, call light within reach, will continue to monitor.
--- NOTE | 2019-05-21 19:36 | NUR ---
HAND-OFF: Report given to AKUA Perdue.
[2019-05-21 20:00] VITALS: BP 168/89
[2019-05-21] MEDS: HYDROcodone/Acetamin 10/325 tab ORAL PRN (20:04)
[2019-05-21] MEDS: Dyna-Hex 2% Top Sol 2oz TOPIC SCH (20:04)
--- NOTE | 2019-05-21 23:27 | NUR ---
NURSE NOTES: Vanco Trough results, pipeline okay to continue same dosage of 1.25gm Vancomycin
[2019-05-22] VITALS: BP 164/93
[2019-05-22 04:00] VITALS: BP 141/86
[2019-05-22] MEDS: HydrALAZINE 50mg tab ORAL SCH ×3 (05:05→21:09)
[2019-05-22] MEDS: HYDROcodone/Acetamin 10/325 tab ORAL PRN ×2 (05:06→21:12)
--- NOTE | 2019-05-22 07:27 | NUR ---
HAND-OFF: Report given to AKUA Dowling.
--- NOTE | 2019-05-22 07:36 | NUR ---
NURSE NOTES: Patient alert x4, on room air, no sing of distress and shortness of breath; no sing of chest pain; Left Upper arm PICC line, flushes well; urinal/commode within reach; side rails up x2, breaks engaged, bed at lowest position; call light within reach; will keep monitoring.
[2019-05-22 08:00] VITALS: BP 154/78
--- NOTE | 2019-05-22 08:02 | NUR ---
NURSE NOTES: Dressing on the Right Foot dry and intact.
[2019-05-22] MEDS: Heparin 5000 units/ml inj SUBQ SCH ×2 (08:44→20:54)
[2019-05-22] MEDS: Vancomycin 1.25gm Premix IVPB SCH ×2 (10:21→23:34)
--- NOTE | 2019-05-22 10:56 | Pulmonology Progress Note ---
Assessment/Plan Assessment/Plan Pulmonary Progress Note Assessment/Plan: IMPRESSION: Significant cellulitis of the right foot with associated edema and erythema, mild anemia, chronic kidney disease per history , elevated liver enzymes protein-calorie malnutrition. chronic osteo, s/p PICC PLAN care as is iv antibiotics x 36 more days needs placement impression, plan, and exam edited and reviewed in detail care discussed with RN Subjective overall same Objective Vital Signs Noted Laboratory Tests 05/20/19 04:50: Sodium Level 139, Potassium Level 3.5, Chloride Level 106, Carbon Dioxide Level 25, Anion Gap 8, Blood Urea Nitrogen 17, Creatinine 1.2, Estimat Glomerular Filtration Rate > 60, Glucose Level 106, Calcium Level 8.9 05/20/19 08:54: Vancomycin Level Trough 13.3H Height (Feet): 6 Height (Inches): 1.00 Weight (Pounds): 220 Objective GENERAL: A well-appearing male, chronically debilitated. HEENT: Negative. NECK: Supple. LUNGS: Clear. CARDIAC: S1, S2. Regular rate and rhythm. ABDOMEN: Soft. EXTREMITIES: Lower extremities are warm to the touch. Right lower extremity is edematous and erythematous with ulcerative lesions noted over the right great toe as well as the second toe on the right side, noted edema and some venous stasis findings as well. Subjective ROS Limited/Unobtainable: No Allergies: Coded Allergies: PENICILLINS (Verified Allergy, Unknown, 02/10/17) UNABLE TO ASSESS (Unverified , 03/01/18) Uncoded Allergies: PENICILLIN (Allergy, Unknown, 05/15/19) Objective Last 24 Hour Vital Signs Date Time Temp Pulse Resp B/P (MAP) Pulse Ox O2 Delivery O2 Flow Rate FiO2 05/22/19 09:00 Room Air 05/22/19 08:00 99.1 92 18 154/78 (103) 96 05/22/19 05:05 141/86 05/22/19 04:00 98.5 74 19 141/86 (104) 96 05/22/19 00:00 99.0 81 18 164/93 (116) 95 05/21/19 21:07 155/86 05/21/19 21:00 Room Air 05/21/19 20:00 99.6 93 18 168/89 (115) 96 05/21/19 16:00 97.0 96 18 156/84 (108) 97 05/21/19 13:08 143/85 05/21/19 12:00 98.2 77 17 143/85 (104) 98 Intake and Output 05/21/19 05/22/19 19:00 07:00 Intake Total 1966.666 ml 2446.666 ml Output Total 650 ml Balance 1966.666 ml 1796.666 ml Intake Oral 1600 ml 1600 ml IV Total 366.666 ml 366.666 ml Other 480 ml Output Urine Total 650 ml # Voids 8 5 # Bowel Movements 1 1 Laboratory Tests 05/21/19 21:30: Vancomycin Level Trough 16.0H Current Medications Medications (Trade) Dose Ordered Sig/Sharla Route PRN Reason Start Time Stop Time Status Last Admin Dose Admin Acetaminophen (Tylenol) 650 mg Q4H PRN ORAL For Pain 05/15/19 17:45 06/14/19 17:44 05/16/19 21:59 Acetaminophen/ Hydrocodone Bitart ([place] 10/325) 1 tab Q4H PRN ORAL Severe Pain (Pain Scale 7-10) 05/16/19 22:30 05/23/19 22:29 05/22/19 05:06 Acetaminophen/ Hydrocodone Bitart ([place] 5/325) 1 tab Q4H PRN ORAL Moderate Pain (Pain Scale 4-6) 05/16/19 22:30 05/23/19 22:29 Al Hydroxide/Mg Hydroxide (Mylanta) 30 ml Q4H PRN ORAL dyspepsia 05/15/19 17:45 06/14/19 17:44 Chlorhexidine Gluconate (Chastity-Hex 2%) 1 applic DAILY@1999 TOPIC 05/18/19 20:00 06/17/19 19:59 05/21/19 20:04 Clonidine HCl (Catapres Tab) 0.1 mg Q4H PRN ORAL For High Blood Pressure 05/15/19 21:15 06/14/19 21:14 05/17/19 04:56 Heparin Sodium (Porcine) (Heparin 5000 units/ml) 5,000 units EVERY 12 HOURS SUBQ 05/16/19 09:00 06/15/19 08:59 Hydralazine HCl (Apresoline) 50 mg Q8HR ORAL 05/17/19 14:00 06/16/19 13:59 05/22/19 05:05 Pantoprazole (Protonix) 40 mg DAILY ORAL 05/16/19 09:00 06/15/19 08:59 05/22/19 08:44 Vancomycin HCl (Vanco rx to dose) 1 ea DAILY MISC 05/16/19 09:00 06/15/19 08:59 Vancomycin HCl/ Dextrose 275 ml @ 183.333 mls/hr Q12HR@1100,2300 IVPB 05/20/19 11:00 06/26/19 23:59 05/22/19 10:21 Kain Bales MD May 22, 2019 10:56
[2019-05-22 12:00] VITALS: BP 155/95
--- NOTE | 2019-05-22 14:14 | Infectious Diseases Prog Note ---
Assessment/Plan Assessment/Plan A 1. right foot osteomyelitis 2. hypertension 3. cirrhosis 4. CVA 5. Penicillin allergy P 1. continue iv vancomycin 35 more days 2. will follow up Subjective ROS Limited/Unobtainable: Yes Allergies: Coded Allergies: PENICILLINS (Verified Allergy, Unknown, 02/10/17) UNABLE TO ASSESS (Unverified , 03/01/18) Uncoded Allergies: PENICILLIN (Allergy, Unknown, 05/15/19) Objective Vital Signs Last 24 Hour Vital Signs Date Time Temp Pulse Resp B/P (MAP) Pulse Ox O2 Delivery O2 Flow Rate FiO2 05/22/19 13:48 155/95 05/22/19 12:00 97.7 69 20 155/95 (115) 98 05/22/19 09:00 Room Air 05/22/19 08:00 99.1 92 18 154/78 (103) 96 05/22/19 05:05 141/86 05/22/19 04:00 98.5 74 19 141/86 (104) 96 05/22/19 00:00 99.0 81 18 164/93 (116) 95 05/21/19 21:07 155/86 05/21/19 21:00 Room Air 05/21/19 20:00 99.6 93 18 168/89 (115) 96 05/21/19 16:00 97.0 96 18 156/84 (108) 97 Height (Feet): 6 Height (Inches): 1.00 Weight (Pounds): 220 General Appearance: no acute distress HEENT: mucous membranes moist Respiratory/Chest: lungs clear Cardiovascular: normal rate, other - PICC line Abdomen: normal bowel sounds, soft, non tender Extremities: no edema, other - R foot dressing Neurologic/Psychiatric: other - sleeping Laboratory Tests Test 05/21/19 21:30 Vancomycin Level Trough 16.0 ug/mL (5.0-12.0) H Current Medications Medications (Trade) Dose Ordered Sig/Sharla Route PRN Reason Start Time Stop Time Status Last Admin Dose Admin Acetaminophen (Tylenol) 650 mg Q4H PRN ORAL For Pain 05/15/19 17:45 06/14/19 17:44 05/16/19 21:59 Acetaminophen/ Hydrocodone Bitart ([place] 10/325) 1 tab Q4H PRN ORAL Severe Pain (Pain Scale 7-10) 05/16/19 22:30 8/19/19 22:29 05/22/19 05:06 Acetaminophen/ Hydrocodone Bitart ([place] 5/325) 1 tab Q4H PRN ORAL Moderate Pain (Pain Scale 4-6) 05/16/19 22:30 05/23/19 22:29 Al Hydroxide/Mg Hydroxide (Mylanta) 30 ml Q4H PRN ORAL dyspepsia 05/15/19 17:45 06/14/19 17:44 Chlorhexidine Gluconate (Chastity-Hex 2%) 1 applic DAILY@2000 TOPIC 05/18/19 20:00 06/17/19 19:59 05/21/19 20:04 Clonidine HCl (Catapres Tab) 0.1 mg Q4H PRN ORAL For High Blood Pressure 05/15/19 21:15 06/14/19 21:14 05/17/19 04:56 Heparin Sodium (Porcine) (Heparin 5000 units/ml) 5,000 units EVERY 12 HOURS SUBQ 05/16/19 09:00 06/15/19 08:59 Hydralazine HCl (Apresoline) 50 mg Q8HR ORAL 05/17/19 14:00 06/16/19 13:59 05/22/19 13:48 Pantoprazole (Protonix) 40 mg DAILY ORAL 05/16/19 09:00 06/15/19 08:59 05/22/19 08:44 Vancomycin HCl (Vanco rx to dose) 1 ea DAILY MISC 05/16/19 09:00 06/15/19 08:59 Vancomycin HCl/ Dextrose 275 ml @ 183.333 mls/hr Q12HR@1100,2300 IVPB 05/20/19 11:00 06/26/19 23:59 05/22/19 10:21 Edis Irving MD May 22, 2019 14:14
[2019-05-22 16:00] VITALS: BP 145/75
--- NOTE | 2019-05-22 19:18 | NUR ---
HAND-OFF: Report given to AKUA Worthy.
[2019-05-22 20:00] VITALS: BP 159/91
--- NOTE | 2019-05-22 20:01 | NUR ---
NURSE NOTES: Received patient resting in bed. AAO x 4, on room air. R foot covered with kerlix. PICC line with double lumen L upper intact. Wheelchair and commode at bedside. Bed lowest position, locked, alarm on, call light within reach. Will continue to monitor.
[2019-05-22] MEDS: Dyna-Hex 2% Top Sol 2oz TOPIC SCH (21:09)
--- NOTE | 2019-05-22 22:00 | NUR ---
NURSE NOTES: Kerlix on R foot changed as pt requested.
[2019-05-23] VITALS (7 sets, daily range): BP systolic 133–157; BP diastolic 79–88
[2019-05-23] MEDS: HydrALAZINE 50mg tab ORAL SCH ×3 (05:05→22:07)
[2019-05-23] MEDS: HYDROcodone/Acetamin 10/325 tab ORAL PRN ×3 (05:10→20:05)
--- NOTE | 2019-05-23 07:14 | NUR ---
HAND-OFF: Report given to AKUA Caballero.
--- NOTE | 2019-05-23 08:05 | NUR ---
NURSE NOTES: Received patient from T[facility] Yu[facility]. Patient awake in BEd. Fall precautions in place. call sun within reach. will follow
--- NOTE | 2019-05-23 08:46 | General Progress Note ---
Assessment/Plan Assessment/Plan: IMPRESSION: Significant cellulitis of the right foot with associated edema and erythema, mild anemia, chronic kidney disease per history , elevated liver enzymes protein-calorie malnutrition. chronic osteo, s/p PICC PLAN care as is iv antibiotics x 38 more days needs placement impression, plan, and exam edited and reviewed in detail care discussed with RN Subjective Allergies: Coded Allergies: PENICILLINS (Verified Allergy, Unknown, 02/10/17) UNABLE TO ASSESS (Unverified , 03/01/18) Uncoded Allergies: PENICILLIN (Allergy, Unknown, 05/15/19) Subjective overall same Objective Last 24 Hour Vital Signs Date Time Temp Pulse Resp B/P (MAP) Pulse Ox O2 Delivery O2 Flow Rate FiO2 05/23/19 05:05 133/83 05/23/19 04:00 99.2 84 18 133/83 (100) 97 05/23/19 00:00 98.8 88 20 144/88 (106) 95 05/22/19 21:09 159/91 05/22/19 21:00 Room Air 05/22/19 20:00 98.7 89 20 159/91 (113) 96 05/22/19 16:00 98.9 79 19 145/75 (98) 98 05/22/19 13:48 155/95 05/22/19 12:00 97.7 69 20 155/95 (115) 98 05/22/19 09:00 Room Air Intake and Output 05/22/19 05/23/19 19:00 07:00 Intake Total 1266.666 ml 635.000 ml Output Total 1000 ml 800 ml Balance 266.666 ml -165.000 ml Intake Oral 900 ml 360 ml IV Total 366.666 ml 275.000 ml Output Urine Total 1000 ml 800 ml # Voids 3 Height (Feet): 6 Height (Inches): 1.00 Weight (Pounds): 220 Objective GENERAL: A well-appearing male, chronically debilitated. HEENT: Negative. NECK: Supple. LUNGS: Clear. CARDIAC: S1, S2. Regular rate and rhythm. ABDOMEN: Soft. EXTREMITIES: Lower extremities are warm to the touch. Right lower extremity is edematous and erythematous with ulcerative lesions noted over the right great toe as well as the second toe on the right side, noted edema and some venous stasis findings as well. Serafin Catherine MD May 23, 2019 08:46
[2019-05-23] MEDS: Heparin 5000 units/ml inj SUBQ SCH ×2 (09:00→21:00)
[2019-05-23] MEDS: Vancomycin 1.25gm Premix IVPB SCH ×2 (10:47→22:08)
--- NOTE | 2019-05-23 11:10 | Surgery Progress Note ---
Surgery Progress Note Subjective Additional Comments no acute events comfortable stable. no complaints Objective Last 24 Hour Vital Signs Date Time Temp Pulse Resp B/P (MAP) Pulse Ox O2 Delivery O2 Flow Rate FiO2 05/23/19 08:00 98.3 99 18 157/87 (110) 96 05/23/19 05:05 133/83 05/23/19 04:00 99.2 84 18 133/83 (100) 97 05/23/19 00:00 98.8 88 20 144/88 (106) 95 05/22/19 21:09 159/91 05/22/19 21:00 Room Air 05/22/19 20:00 98.7 89 20 159/91 (113) 96 05/22/19 16:00 98.9 79 19 145/75 (98) 98 05/22/19 13:48 155/95 05/22/19 12:00 97.7 69 20 155/95 (115) 98 I&O Intake and Output 05/22/19 05/23/19 19:00 07:00 Intake Total 1266.666 ml 635.000 ml Output Total 1000 ml 800 ml Balance 266.666 ml -165.000 ml Intake Oral 900 ml 360 ml IV Total 366.666 ml 275.000 ml Output Urine Total 1000 ml 800 ml # Voids 3 Dressing: dry Wound: clean Cardiovascular: RSR Respiratory: clear Abdomen: soft, flat Extremities: edema Plan Problems: (1) Cellulitis of foot, right Assessment & Plan: Bones/joints: Destructive changes involving the first distal phalanx. Fracture and heterogeneity of the first proximal phalanx. Limited assessment of the second and fourth distal phalanges, cannot exclude fractures or destructive changes. Amputation of the third toe. Degenerative changes throughout the foot. Plantar and posterior calcaneal spurs. Osteopenia. Soft tissues: Soft tissue swelling and edema. Bilateral lower extremity edema pain and difficulty with ambulatory edema on and off for years. now worse past 2 weeks -Keep bilateral lower extremity elevated while in bed or chair -patient is wheelchair use majority of the time and does not walk actively for some time now. states his wheelchair is broken and wants new one. -DVT study noted and negative -picc for iv abx x 6 weeks appreciate Id input will follow with recs while in hospital thank you for allowing me to participate in patients care. (2) Liver cirrhosis (3) Osteomyelitis of foot, right, acute Patrick Ga May 23, 2019 11:10
--- NOTE | 2019-05-23 11:42 | Infectious Diseases Prog Note ---
Assessment/Plan Assessment/Plan antibiotics : vancomycin iv A 1. right foot osteomyelitis 2. hypertension 3. cirrhosis 4. CVA P 1. continue iv vancomycin 34 more days 2. will follow up Subjective Constitutional: Denies: fever, chills Respiratory: Denies: shortness of breath, dry cough Gastrointestinal/Abdominal: Denies: nausea, vomiting, diarrhea Musculoskeletal: Reports: pain - right foot Allergies: Coded Allergies: PENICILLINS (Verified Allergy, Unknown, 02/10/17) UNABLE TO ASSESS (Unverified , 03/01/18) Uncoded Allergies: PENICILLIN (Allergy, Unknown, 05/15/19) Objective Vital Signs Last 24 Hour Vital Signs Date Time Temp Pulse Resp B/P (MAP) Pulse Ox O2 Delivery O2 Flow Rate FiO2 05/23/19 08:00 98.3 99 18 157/87 (110) 96 05/23/19 05:05 133/83 05/23/19 04:00 99.2 84 18 133/83 (100) 97 05/23/19 00:00 98.8 88 20 144/88 (106) 95 05/22/19 21:09 159/91 05/22/19 21:00 Room Air 05/22/19 20:00 98.7 89 20 159/91 (113) 96 05/22/19 16:00 98.9 79 19 145/75 (98) 98 05/22/19 13:48 155/95 05/22/19 12:00 97.7 69 20 155/95 (115) 98 Height (Feet): 6 Height (Inches): 1.00 Weight (Pounds): 220 Respiratory/Chest: lungs clear Cardiovascular: normal rate, regular rhythm, no gallop/murmur Abdomen: soft, non tender Extremities: no edema, other - right big toe ulcer, 2nd toe stump clean Current Medications Medications (Trade) Dose Ordered Sig/Sharla Route PRN Reason Start Time Stop Time Status Last Admin Dose Admin Acetaminophen (Tylenol) 650 mg Q4H PRN ORAL For Pain 05/15/19 17:45 06/14/19 17:44 05/23/19 10:30 Acetaminophen/ Hydrocodone Bitart ([place] 10/325) 1 tab Q4H PRN ORAL Severe Pain (Pain Scale 7-10) 05/16/19 22:30 05/23/19 22:29 05/23/19 05:10 Acetaminophen/ Hydrocodone Bitart ([place] 5/325) 1 tab Q4H PRN ORAL Moderate Pain (Pain Scale 4-6) 05/16/19 22:30 05/23/19 22:29 Al Hydroxide/Mg Hydroxide (Mylanta) 30 ml Q4H PRN ORAL dyspepsia 05/15/19 17:45 06/14/19 17:44 Chlorhexidine Gluconate (Chastity-Hex 2%) 1 applic DAILY@2000 TOPIC 05/18/19 20:00 06/17/19 19:59 05/22/19 21:09 Clonidine HCl (Catapres Tab) 0.1 mg Q4H PRN ORAL For High Blood Pressure 05/15/19 21:15 06/14/19 21:14 05/17/19 04:56 Heparin Sodium (Porcine) (Heparin 5000 units/ml) 5,000 units EVERY 12 HOURS SUBQ 05/16/19 09:00 06/15/19 08:59 Hydralazine HCl (Apresoline) 50 mg Q8HR ORAL 05/17/19 14:00 06/16/19 13:59 05/23/19 05:05 Pantoprazole (Protonix) 40 mg DAILY ORAL 05/16/19 09:00 06/15/19 08:59 05/23/19 09:31 Vancomycin HCl (Vanco rx to dose) 1 ea DAILY MISC 05/16/19 09:00 06/15/19 08:59 Vancomycin HCl/ Dextrose 275 ml @ 183.333 mls/hr Q12HR@1100,2300 IVPB 05/20/19 11:00 06/26/19 23:59 05/23/19 10:47 Valarie Quintana MD May 23, 2019 11:41
--- NOTE | 2019-05-23 13:25 | NUR ---
PT WEEKLY PROGRESS NOTE Patient currently being seen for skilled inpatient PT intervention consisting of therapeutic exercises and transfer training. Patient requires SBA for bed mobility and mod assist for transfers with FWW. Patient able to step in place for 1-2 minutes however unable to ambulate. Patient unable to fully extend L knee and unable to bear weight on LLE. Patient will benefit from skilled inpatient PT intervention to increase strength and ROM BLEs and improve ability to transfer and perform pre-gait activities.
--- NOTE | 2019-05-23 19:44 | NUR ---
HAND-OFF: Report given to Tete Branham. Plan of care endorsed.
[2019-05-23] MEDS: Dyna-Hex 2% Top Sol 2oz TOPIC SCH (20:05)
--- NOTE | 2019-05-23 20:16 | NUR ---
NURSE NOTES: Patient in bed, awake, alert and verbally responsive. Able to make needs known. Skin is warm and dry, Dressing noted on lower foot. Abdomen is soft and non distended. Complained of pain scale 7/10, will give PRN pain medication as ordered. Bed in low and locked position. Provided safe environment. Will continue plan of care. Call light is at bedside.
--- NOTE | 2019-05-23 20:31 | NUR ---
CASE MANAGEMENT: REVIEW SI: CELLULITIS BLE . ACUTE OSTEOMYELITIS OF RIGHT FOOT . T 98.1 HR 72 RR 18 BP 143/84 SAT 96% ROOM AIR IS: VANCO/DEXTROSE IV 275ML@183/HR Q12HR LEVAQUIN PO Q24HR HYDRALAZINE PO Q8HR MED/SURG STATUS DCP: PATIENT REPORTS HOMELESSNESS
[2019-05-24 04:00] VITALS: BP 144/81
[2019-05-24] MEDS: HydrALAZINE 50mg tab ORAL SCH ×3 (05:16→22:06)
--- NOTE | 2019-05-24 07:27 | NUR ---
HAND-OFF: Report given to AKUA Forrest.
--- NOTE | 2019-05-24 07:30 | NUR ---
NURSE NOTES: Received patient in bed, awake, not in acute respiratory/cardiac distress noted. Right foot dressing intact. PICC line on left upper arm intact, dressing intact and clean and dry. Bed is in lowest position and locked. Call light within reach. Will continue plan of care.
[2019-05-24 08:00] VITALS: BP 148/81
[2019-05-24] MEDS: Heparin 5000 units/ml inj SUBQ SCH ×2 (08:39→20:16)
--- NOTE | 2019-05-24 08:57 | NUR ---
NURSE NOTES: patient is complaining of right foot pain. [place] PRN got last night. RN contacted to Dr. Catherine and received pain meds orders. Orders read back and carried out.
[2019-05-24] MEDS ORDERED: HYDROcodone/Acetamin 5/325 tab ORAL PRN (09:00)
[2019-05-24] MEDS: HYDROcodone/Acetamin 10/325 tab ORAL PRN ×4 (09:42→23:18)
--- NOTE | 2019-05-24 11:08 | Infectious Diseases Prog Note ---
Assessment/Plan Assessment/Plan antibiotics : vancomycin iv A 1. right foot osteomyelitis 2. hypertension 3. cirrhosis 4. CVA P 1. continue iv vancomycin 33 more days 2. cbc, bmp, vancomycin level q weekly 3. will follow up Subjective ROS Limited/Unobtainable: Yes Allergies: Coded Allergies: PENICILLINS (Verified Allergy, Unknown, 02/10/17) UNABLE TO ASSESS (Unverified , 03/01/18) Uncoded Allergies: PENICILLIN (Allergy, Unknown, 05/15/19) Objective Vital Signs Last 24 Hour Vital Signs Date Time Temp Pulse Resp B/P (MAP) Pulse Ox O2 Delivery O2 Flow Rate FiO2 05/24/19 09:00 Room Air 05/24/19 08:00 98.3 83 21 148/81 (103) 98 05/24/19 05:16 144/71 05/24/19 04:00 97.7 79 18 144/81 (102) 98 05/23/19 23:51 98.5 81 18 150/81 (104) 99 05/23/19 22:07 146/87 05/23/19 21:00 Room Air 05/23/19 20:00 98.0 79 20 146/87 (106) 98 05/23/19 16:00 98.1 72 18 137/79 (98) 99 05/23/19 14:35 98.3 05/23/19 14:02 143/84 05/23/19 12:00 98.3 99 18 143/84 (103) 98 05/23/19 12:00 Room Air Height (Feet): 6 Height (Inches): 1.00 Weight (Pounds): 220 Respiratory/Chest: lungs clear Cardiovascular: normal rate, regular rhythm, no gallop/murmur Abdomen: soft, non tender Extremities: no edema, other - right big toe ulcer, 2nd toe amputation stump clean Current Medications Medications (Trade) Dose Ordered Sig/Sharla Route PRN Reason Start Time Stop Time Status Last Admin Dose Admin Acetaminophen (Tylenol) 650 mg Q4H PRN ORAL For Pain 05/15/19 17:45 06/14/19 17:44 05/24/19 05:17 Acetaminophen/ Hydrocodone Bitart ([place] 10/325) 1 tab Q4H PRN ORAL Severe Pain (Pain Scale 7-10) 05/24/19 09:00 05/31/19 08:59 05/24/19 09:42 Acetaminophen/ Hydrocodone Bitart ([place] 5/325) 1 tab Q4H PRN ORAL Moderate Pain (Pain Scale 4-6) 05/24/19 09:00 05/31/19 08:59 Al Hydroxide/Mg Hydroxide (Mylanta) 30 ml Q4H PRN ORAL dyspepsia 05/15/19 17:45 06/14/19 17:44 Chlorhexidine Gluconate (Chastity-Hex 2%) 1 applic DAILY@2000 TOPIC 05/18/19 20:00 06/17/19 19:59 05/23/19 20:05 Clonidine HCl (Catapres Tab) 0.1 mg Q4H PRN ORAL For High Blood Pressure 05/15/19 21:15 06/14/19 21:14 05/17/19 04:56 Heparin Sodium (Porcine) (Heparin 5000 units/ml) 5,000 units EVERY 12 HOURS SUBQ 05/16/19 09:00 06/15/19 08:59 Hydralazine HCl (Apresoline) 50 mg Q8HR ORAL 05/17/19 14:00 06/16/19 13:59 05/24/19 05:16 Pantoprazole (Protonix) 40 mg DAILY ORAL 05/16/19 09:00 06/15/19 08:59 05/24/19 08:38 Vancomycin HCl (Vanco rx to dose) 1 ea DAILY MISC 05/16/19 09:00 06/15/19 08:59 Vancomycin HCl/ Dextrose 275 ml @ 183.333 mls/hr Q12HR@1100,2300 IVPB 05/20/19 11:00 06/26/19 23:59 05/23/19 22:08 Valarie Quintana MD May 24, 2019 11:08
[2019-05-24] MEDS: Vancomycin 1.25gm Premix IVPB SCH ×2 (11:23→22:06)
--- NOTE | 2019-05-24 11:36 | NUR ---
RD ASSESSMENT & RECOMMENDATIONS SEE CARE ACTIVITY FOR COMPLETE ASSESSMENT DAILY ESTIMATED NEEDS: Needs based on cardiac, liver 85.7 kg adj 25-30 kcals/kg 4415-6945 total kcals 1-1.5 g protein/kg 86-129 g total protein Fluid per MD, adm w/ BL LE edema NUTRITION DIAGNOSIS: Decreased sodium needs r/t edema and liver dysfunction as evidenced by pt adm w/ BL LE edema, h/o cirrhosis w/ elev LFT's. CURRENT DIET: Regular PO DIET RECOMMENDATIONS: LOW NA/ SOFT EASY CHEW ADDITIONAL RECOMMENDATIONS: * AM BG mildly elev, rec A1C for eval * Obtain a calibrated bed scale wt for eval * Send high pro snacks in b/w meals . .
[2019-05-24 12:00] VITALS: BP 144/78
--- NOTE | 2019-05-24 12:04 | Surgery Progress Note ---
Surgery Progress Note Subjective Additional Comments no acute events comfortable stable. exam improving Objective Last 24 Hour Vital Signs Date Time Temp Pulse Resp B/P (MAP) Pulse Ox O2 Delivery O2 Flow Rate FiO2 05/24/19 09:00 Room Air 05/24/19 08:00 98.3 83 21 148/81 (103) 98 05/24/19 05:16 144/71 05/24/19 04:00 97.7 79 18 144/81 (102) 98 05/23/19 23:51 98.5 81 18 150/81 (104) 99 05/23/19 22:07 146/87 05/23/19 21:00 Room Air 05/23/19 20:00 98.0 79 20 146/87 (106) 98 05/23/19 16:00 98.1 72 18 137/79 (98) 99 05/23/19 14:35 98.3 05/23/19 14:02 143/84 I&O Intake and Output 05/23/19 05/24/19 19:00 07:00 Intake Total 500 ml 1125.000 ml Output Total 850 ml 1000 ml Balance -350 ml 125.000 ml Intake Oral 500 ml 850 ml IV Total 275.000 ml Output Urine Total 850 ml 1000 ml # Voids 3 Dressing: dry Wound: clean Cardiovascular: RSR Respiratory: clear Abdomen: soft, non-tender, present bowel sounds Extremities: no cyanosis, other Plan Problems: (1) Cellulitis of foot, right Assessment & Plan: Bones/joints: Destructive changes involving the first distal phalanx. Fracture and heterogeneity of the first proximal phalanx. Limited assessment of the second and fourth distal phalanges, cannot exclude fractures or destructive changes. Amputation of the third toe. Degenerative changes throughout the foot. Plantar and posterior calcaneal spurs. Osteopenia. Soft tissues: Soft tissue swelling and edema. Bilateral lower extremity edema pain and difficulty with ambulatory edema on and off for years. now worse past 2 weeks -Keep bilateral lower extremity elevated while in bed or chair -patient is wheelchair use majority of the time and does not walk actively for some time now. states his wheelchair is broken and wants new one. -DVT study noted and negative -picc for iv abx x 6 weeks appreciate Id input will follow with recs while in hospital thank you for allowing me to participate in patients care. (2) Liver cirrhosis (3) Osteomyelitis of foot, right, acute Patrick Ga May 24, 2019 12:04
--- NOTE | 2019-05-24 14:15 | NUR ---
PT NOTE Attempted to see patient for PT treatment. Patient declining to participate at this time, will re-attempt later as schedule permits.
[2019-05-24 16:00] VITALS: BP 148/76
--- NOTE | 2019-05-24 17:20 | General Progress Note ---
Assessment/Plan Assessment/Plan: IMPRESSION: Significant cellulitis of the right foot with associated edema and erythema, mild anemia, chronic kidney disease per history , elevated liver enzymes protein-calorie malnutrition. chronic osteo, s/p PICC PLAN care as is iv antibiotics x 38 more days needs placement impression, plan, and exam edited and reviewed in detail care discussed with RN Subjective Allergies: Coded Allergies: PENICILLINS (Verified Allergy, Unknown, 02/10/17) UNABLE TO ASSESS (Unverified , 03/01/18) Uncoded Allergies: PENICILLIN (Allergy, Unknown, 05/15/19) Subjective overall same Objective Last 24 Hour Vital Signs Date Time Temp Pulse Resp B/P (MAP) Pulse Ox O2 Delivery O2 Flow Rate FiO2 05/24/19 16:00 98.5 87 21 148/76 (100) 96 05/24/19 14:38 152/80 05/24/19 12:00 98.3 84 21 144/78 (100) 97 05/24/19 09:00 Room Air 05/24/19 08:00 98.3 83 21 148/81 (103) 98 05/24/19 05:16 144/71 05/24/19 04:00 97.7 79 18 144/81 (102) 98 05/23/19 23:51 98.5 81 18 150/81 (104) 99 05/23/19 22:07 146/87 05/23/19 21:00 Room Air 05/23/19 20:00 98.0 79 20 146/87 (106) 98 Intake and Output 05/23/19 05/24/19 19:00 07:00 Intake Total 500 ml 1125.000 ml Output Total 850 ml 1000 ml Balance -350 ml 125.000 ml Intake Oral 500 ml 850 ml IV Total 275.000 ml Output Urine Total 850 ml 1000 ml # Voids 3 Height (Feet): 6 Height (Inches): 1.00 Weight (Pounds): 220 Objective GENERAL: A well-appearing male, chronically debilitated. HEENT: Negative. NECK: Supple. LUNGS: Clear. CARDIAC: S1, S2. Regular rate and rhythm. ABDOMEN: Soft. EXTREMITIES: Lower extremities are warm to the touch. Right lower extremity is edematous and erythematous with ulcerative lesions noted over the right great toe as well as the second toe on the right side, noted edema and some venous stasis findings as well. Ishaaya,Serafin M MD May 24, 2019 17:20
--- NOTE | 2019-05-24 19:26 | NUR ---
HAND-OFF: Report given to
--- NOTE | 2019-05-24 19:50 | NUR ---
NURSE NOTES: Patient is awake, alert and verbally responsive. Able to make needs. Kept clean and comfortable. Picc line noted. Dressing on lower extremity noted. Will continue plan of care.
[2019-05-24 20:00] VITALS: BP 156/74
[2019-05-24] MEDS: Dyna-Hex 2% Top Sol 2oz TOPIC SCH (20:00)
[2019-05-24 23:44] VITALS: BP 144/79
[2019-05-25 04:00] VITALS: BP 146/77
[2019-05-25] MEDS: HYDROcodone/Acetamin 10/325 tab ORAL PRN ×4 (05:11→21:12)
[2019-05-25] MEDS: HydrALAZINE 50mg tab ORAL SCH ×3 (05:13→21:11)
--- NOTE | 2019-05-25 07:06 | NUR ---
HAND-OFF: Report given to Tete Forrest.
[2019-05-25 08:00] VITALS: BP 140/76
[2019-05-25] MEDS: Heparin 5000 units/ml inj SUBQ SCH ×2 (08:24→21:00)
[2019-05-25] MEDS: Vancomycin 1.25gm Premix IVPB SCH ×2 (11:24→22:26)
[2019-05-25 12:00] VITALS: BP 127/64
--- NOTE | 2019-05-25 13:45 | Surgery Progress Note ---
Surgery Progress Note Subjective Symptoms: improved, tolerating diet, passing flatus Objective Last 24 Hour Vital Signs Date Time Temp Pulse Resp B/P (MAP) Pulse Ox O2 Delivery O2 Flow Rate FiO2 05/25/19 12:00 97.8 72 18 127/64 (85) 96 05/25/19 09:00 Room Air 05/25/19 08:00 97.7 81 18 140/76 (97) 96 05/25/19 05:13 146/77 05/25/19 04:00 98.8 87 17 146/77 (100) 96 05/24/19 23:44 99.0 84 17 144/79 (100) 95 05/24/19 22:06 156/74 05/24/19 20:59 Room Air 05/24/19 20:00 98.9 86 18 156/74 (101) 95 05/24/19 16:00 98.5 87 21 148/76 (100) 96 05/24/19 14:38 152/80 I&O Intake and Output 05/24/19 05/25/19 19:00 07:00 Intake Total 275.000 ml 360 ml Output Total 600 ml 600 ml Balance -325.000 ml -240 ml Intake Oral 360 ml IV Total 275.000 ml Output Urine Total 600 ml 600 ml # Voids 3 Dressing: dry Wound: clean Cardiovascular: RSR Respiratory: clear Abdomen: soft, flat, non-tender, present bowel sounds Extremities: edema, no tenderness, no cyanosis Plan Problems: (1) Cellulitis of foot, right Assessment & Plan: Bones/joints: Destructive changes involving the first distal phalanx. Fracture and heterogeneity of the first proximal phalanx. Limited assessment of the second and fourth distal phalanges, cannot exclude fractures or destructive changes. Amputation of the third toe. Degenerative changes throughout the foot. Plantar and posterior calcaneal spurs. Osteopenia. Soft tissues: Soft tissue swelling and edema. Bilateral lower extremity edema pain and difficulty with ambulatory edema on and off for years. now worse past 2 weeks -Keep bilateral lower extremity elevated while in bed or chair -patient is wheelchair use majority of the time and does not walk actively for some time now. states his wheelchair is broken and wants new one. -DVT study noted and negative -picc for iv abx x 6 weeks appreciate Id input will follow with recs while in hospital thank you for allowing me to participate in patients care. (2) Liver cirrhosis (3) Osteomyelitis of foot, right, acute Patrick Ga May 25, 2019 13:45
--- NOTE | 2019-05-25 15:30 | NUR ---
CASE MANAGEMENT: REVIEW 05/25/2019 SI:CELLULITIS. T 97.8 HR 72 RR 18 B/P 127/64 SATS 96% ON RA NO LABS TODAY IS:PROTONIX PO QD VANCO IV Q12H HYDRALAZINE PO Q8H MED/SURG STATUS
--- NOTE | 2019-05-25 15:34 | NUR ---
INSURANCE REVIEWS FAXED TO [facility] ATTN:SCOTTY F: [phone]
[2019-05-25 16:00] VITALS: BP 131/70
--- NOTE | 2019-05-25 18:04 | Pulmonology Progress Note ---
Assessment/Plan Assessment/Plan Pulmonary Progress Note Assessment/Plan: IMPRESSION: Significant cellulitis of the right foot with associated edema and erythema, mild anemia, chronic kidney disease per history , elevated liver enzymes protein-calorie malnutrition. chronic osteo, s/p PICC No new complaints PLAN care as is iv antibiotics x 3 weeks needs placement impression, plan, and exam edited and reviewed in detail care discussed with RN Subjective overall same Objective Vital Signs Noted Laboratory Tests 05/20/19 04:50: Sodium Level 139, Potassium Level 3.5, Chloride Level 106, Carbon Dioxide Level 25, Anion Gap 8, Blood Urea Nitrogen 17, Creatinine 1.2, Estimat Glomerular Filtration Rate > 60, Glucose Level 106, Calcium Level 8.9 05/20/19 08:54: Vancomycin Level Trough 13.3H Height (Feet): 6 Height (Inches): 1.00 Weight (Pounds): 220 Objective GENERAL: A well-appearing male, chronically debilitated. HEENT: Negative. NECK: Supple. LUNGS: Clear. CARDIAC: S1, S2. Regular rate and rhythm. ABDOMEN: Soft. EXTREMITIES: Lower extremities are warm to the touch. Right lower extremity is edematous and erythematous with ulcerative lesions noted over the right great toe as well as the second toe on the right side, noted edema and some venous stasis findings as well. MRI LE 1. Chronic osteomyelitis of the first and second distal phalanges as described above. 2. Reactive edema of the first metatarsal head and subjacent sesamoids. Subjective ROS Limited/Unobtainable: No Allergies: Coded Allergies: PENICILLINS (Verified Allergy, Unknown, 02/10/17) UNABLE TO ASSESS (Unverified , 03/01/18) Uncoded Allergies: PENICILLIN (Allergy, Unknown, 05/15/19) Objective Last 24 Hour Vital Signs Date Time Temp Pulse Resp B/P (MAP) Pulse Ox O2 Delivery O2 Flow Rate FiO2 05/25/19 16:00 97.5 82 18 131/70 (90) 98 05/25/19 15:58 139/81 05/25/19 12:00 97.8 72 18 127/64 (85) 96 05/25/19 09:00 Room Air 05/25/19 08:00 97.7 81 18 140/76 (97) 96 05/25/19 05:13 146/77 05/25/19 04:00 98.8 87 17 146/77 (100) 96 05/24/19 23:44 99.0 84 17 144/79 (100) 95 05/24/19 22:06 156/74 05/24/19 20:59 Room Air 05/24/19 20:00 98.9 86 18 156/74 (101) 95 Intake and Output 05/24/19 05/25/19 19:00 07:00 Intake Total 275.000 ml 360 ml Output Total 600 ml 600 ml Balance -325.000 ml -240 ml Intake Oral 360 ml IV Total 275.000 ml Output Urine Total 600 ml 600 ml # Voids 3 Current Medications Medications (Trade) Dose Ordered Sig/Sharla Route PRN Reason Start Time Stop Time Status Last Admin Dose Admin Acetaminophen (Tylenol) 650 mg Q4H PRN ORAL For Pain 05/15/19 17:45 06/14/19 17:44 05/24/19 05:17 Acetaminophen/ Hydrocodone Bitart ([place] 10/325) 1 tab Q4H PRN ORAL Severe Pain (Pain Scale 7-10) 05/24/19 09:00 05/31/19 08:59 05/25/19 15:58 Acetaminophen/ Hydrocodone Bitart ([place] 5/325) 1 tab Q4H PRN ORAL Moderate Pain (Pain Scale 4-6) 05/24/19 09:00 05/31/19 08:59 Al Hydroxide/Mg Hydroxide (Mylanta) 30 ml Q4H PRN ORAL dyspepsia 05/15/19 17:45 06/14/19 17:44 Chlorhexidine Gluconate (Chastity-Hex 2%) 1 applic DAILY@2000 TOPIC 05/18/19 20:00 06/17/19 19:59 05/24/19 20:00 Clonidine HCl (Catapres Tab) 0.1 mg Q4H PRN ORAL For High Blood Pressure 05/15/19 21:15 06/14/19 21:14 05/17/19 04:56 Heparin Sodium (Porcine) (Heparin 5000 units/ml) 5,000 units EVERY 12 HOURS SUBQ 05/16/19 09:00 06/15/19 08:59 Hydralazine HCl (Apresoline) 50 mg Q8HR ORAL 05/17/19 14:00 06/16/19 13:59 05/25/19 15:58 Pantoprazole (Protonix) 40 mg DAILY ORAL 05/16/19 09:00 06/15/19 08:59 05/25/19 08:25 Vancomycin HCl (Vanco rx to dose) 1 ea DAILY MISC 05/16/19 09:00 06/15/19 08:59 Vancomycin HCl/ Dextrose 275 ml @ 183.333 mls/hr Q12HR@1100,2300 IVPB 05/20/19 11:00 06/26/19 23:59 05/25/19 11:24 Kain Bales MD May 25, 2019 18:04
--- NOTE | 2019-05-25 19:12 | NUR ---
HAND-OFF: Report given to
--- NOTE | 2019-05-25 19:41 | NUR ---
NURSE NOTES: Received patient awake,alert,verbal,using the bedside commode moving his bowel.
[2019-05-25 20:00] VITALS: BP 164/83
[2019-05-25] MEDS: Dyna-Hex 2% Top Sol 2oz TOPIC SCH (21:11)
[2019-05-25 23:50] VITALS: BP 156/92
[2019-05-26] MEDS: HYDROcodone/Acetamin 10/325 tab ORAL PRN ×4 (03:17→22:46)
[2019-05-26 04:00] VITALS: BP 147/84
[2019-05-26] MEDS: HydrALAZINE 50mg tab ORAL SCH ×3 (05:24→22:49)
[2019-05-26 06:37] LABS: HEMATOCRIT 35.5 % (42.0-52.0); HEMOGLOBIN 12.1 G/DL (14.2-18.0); MEAN CORPUSCULAR VOLUME 97 FL (80-99); PLATELET COUNT 117 K/UL (150-450); RED BLOOD COUNT 3.65 M/UL (4.70-6.10); RED CELL DISTRIBUTION WIDTH 11.5 % (11.6-14.8); WHITE BLOOD COUNT 5.2 K/UL (4.8-10.8)
[2019-05-26 06:53] LABS: ANION GAP 8 mmol/L (5-15); BLOOD UREA NITROGEN 17 mg/dL (7-18); CALCIUM 8.8 MG/DL (8.5-10.1); CARBON DIOXIDE 26 MMOL/L (21-32); CHLORIDE 107 MMOL/L (98-107); CREATININE 1.2 MG/DL (0.55-1.30); POTASSIUM 3.7 MMOL/L (3.5-5.1); SODIUM 141 MMOL/L (136-145)
--- NOTE | 2019-05-26 07:17 | NUR ---
HAND-OFF: Report given to AKUA Mcneill.
--- NOTE | 2019-05-26 07:33 | NUR ---
Pt awake, A/O x 4. Denies pain at this time. Dressing on right foot, CDI. PICC line left upper arm, Dressing CDI. bed alarm on, call light within reach. will continue to monitor.
[2019-05-26 08:00] VITALS: BP 138/79
[2019-05-26] MEDS: Heparin 5000 units/ml inj SUBQ SCH ×2 (09:00→20:22)
--- NOTE | 2019-05-26 10:06 | General Progress Note ---
Assessment/Plan Assessment/Plan: IMPRESSION: Significant cellulitis of the right foot with associated edema and erythema, mild anemia, chronic kidney disease per history , elevated liver enzymes protein-calorie malnutrition. chronic osteo, s/p PICC PLAN care as is iv antibiotics x 35 more days needs placement/ still unable to find impression, plan, and exam edited and reviewed in detail care discussed with RN Subjective Allergies: Coded Allergies: PENICILLINS (Verified Allergy, Unknown, 02/10/17) UNABLE TO ASSESS (Unverified , 03/01/18) Uncoded Allergies: PENICILLIN (Allergy, Unknown, 05/15/19) Subjective overall same Objective Last 24 Hour Vital Signs Date Time Temp Pulse Resp B/P (MAP) Pulse Ox O2 Delivery O2 Flow Rate FiO2 05/26/19 09:00 Room Air 05/26/19 08:00 98.5 82 20 138/79 (98) 96 05/26/19 05:24 147/84 05/26/19 04:00 98.1 72 20 147/84 (105) 97 05/26/19 03:47 98.2 05/26/19 00:08 98.2 05/25/19 23:50 98.2 84 20 156/92 (113) 99 05/25/19 21:11 164/83 05/25/19 21:11 164/83 05/25/19 20:05 Room Air 05/25/19 20:00 98.6 70 20 164/83 (110) 97 05/25/19 16:00 97.5 82 18 131/70 (90) 98 05/25/19 15:58 139/81 05/25/19 12:00 97.8 72 18 127/64 (85) 96 Intake and Output 05/25/19 05/26/19 18:59 06:59 Intake Total 1055.000 ml 275.000 ml Balance 1055.000 ml 275.000 ml IV Total 275.000 ml 275.000 ml Other 780 ml # Voids 4 # Bowel Movements 3 Laboratory Tests 05/26/19 06:15: White Blood Count 5.2, Red Blood Count 3.65L, Hemoglobin 12.1L, Hematocrit 35.5L , Mean Corpuscular Volume 97, Mean Corpuscular Hemoglobin 33.1H, Mean Corpuscular Hemoglobin Concent 34.0, Red Cell Distribution Width 11.5L, Platelet Count 117L, Mean Platelet Volume 7.8, Neutrophils (%) (Auto) , Lymphocytes (%) (Auto) , Monocytes (%) (Auto) , Eosinophils (%) (Auto) , Basophils (%) (Auto) , Differential Total Cells Counted 100, Neutrophils % ( Manual) 37L, Lymphocytes % (Manual) 55H, Monocytes % (Manual) 1, Eosinophils % ( Manual) 7H, Basophils % (Manual) 0, Band Neutrophils 0, Platelet Estimate DecreasedL, Platelet Morphology Normal, Red Blood Cell Morphology Normal, Sodium Level 141, Potassium Level 3.7, Chloride Level 107, Carbon Dioxide Level 26, Anion Gap 8, Blood Urea Nitrogen 17, Creatinine 1.2, Estimat Glomerular Filtration Rate > 60, Glucose Level 105, Calcium Level 8.8 Height (Feet): 6 Height (Inches): 1.00 Weight (Pounds): 228 Objective GENERAL: A well-appearing male, chronically debilitated. HEENT: Negative. NECK: Supple. LUNGS: Clear. CARDIAC: S1, S2. Regular rate and rhythm. ABDOMEN: Soft. EXTREMITIES: Lower extremities are warm to the touch. Right lower extremity with ulcerative lesions noted over the right great toe as well as the second toe on the right side Serafin Catherine MD May 26, 2019 10:06
[2019-05-26 12:00] VITALS: BP 140/77
[2019-05-26] MEDS: Vancomycin 1.25gm Premix IVPB SCH ×2 (12:18→22:57)
--- NOTE | 2019-05-26 12:28 | NUR ---
CASE MANAGEMENT: REVIEW 05/26/2019 SI:CELLULITIS. T 98.5 HR 82 RR 20 B/P 138/79 SATS 96% ON RA IS:PROTONIX PO QD VANCO IV Q12H HYDRALAZINE PO Q8H MED/SURG STATUS PLAN OF CARE: CONTINUE IV ANTIBx
--- NOTE | 2019-05-26 12:30 | NUR ---
INSURANCE REVIEWS FAXED TO [facility] ATTN:SCOTTY F: [phone]
--- NOTE | 2019-05-26 13:04 | NUR ---
DISCHARGE PLANNING Discharge order noted Patient has been referred to: [phone] Await Acceptance and Room Number
--- NOTE | 2019-05-26 14:03 | Infectious Diseases Prog Note ---
Assessment/Plan Assessment/Plan A 1. right foot osteomyelitis 2. hypertension 3. cirrhosis 4. CVA 5. Penicillin allergy P 1. continue iv vancomycin 31 more days 2. CBC, BMP, vancomycin level q weekly Subjective ROS Limited/Unobtainable: Yes Respiratory: Reports: no symptoms Cardiovascular: Reports: no symptoms Gastrointestinal/Abdominal: Reports: no symptoms Genitourinary: Reports: no symptoms Musculoskeletal: Reports: pain, other - in feet Allergies: Coded Allergies: PENICILLINS (Verified Allergy, Unknown, 02/10/17) UNABLE TO ASSESS (Unverified , 03/01/18) Uncoded Allergies: PENICILLIN (Allergy, Unknown, 05/15/19) Objective Vital Signs Last 24 Hour Vital Signs Date Time Temp Pulse Resp B/P (MAP) Pulse Ox O2 Delivery O2 Flow Rate FiO2 05/26/19 12:00 98.6 67 20 140/77 (98) 96 05/26/19 11:00 98.5 05/26/19 09:00 Room Air 05/26/19 08:00 98.5 82 20 138/79 (98) 96 05/26/19 05:24 147/84 05/26/19 04:00 98.1 72 20 147/84 (105) 97 05/26/19 00:08 98.2 05/25/19 23:50 98.2 84 20 156/92 (113) 99 05/25/19 21:11 164/83 05/25/19 21:11 164/83 05/25/19 20:05 Room Air 05/25/19 20:00 98.6 70 20 164/83 (110) 97 05/25/19 16:00 97.5 82 18 131/70 (90) 98 05/25/19 15:58 139/81 Height (Feet): 6 Height (Inches): 1.00 Weight (Pounds): 228 General Appearance: no acute distress HEENT: mucous membranes moist Respiratory/Chest: lungs clear Cardiovascular: normal rate Abdomen: soft, non tender Extremities: no edema Skin: other - skin changes in both legs Neurologic/Psychiatric: alert, responsive Laboratory Tests Test 05/26/19 06:15 White Blood Count 5.2 K/UL (4.8-10.8) Red Blood Count 3.65 M/UL (4.70-6.10) L Hemoglobin 12.1 G/DL (14.2-18.0) L Hematocrit 35.5 % (42.0-52.0) L Mean Corpuscular Volume 97 FL (80-99) Mean Corpuscular Hemoglobin 33.1 PG (27.0-31.0) H Mean Corpuscular Hemoglobin Concent 34.0 G/DL (32.0-36.0) Red Cell Distribution Width 11.5 % (11.6-14.8) L Platelet Count 117 K/UL (150-450) L Mean Platelet Volume 7.8 FL (6.5-10.1) Neutrophils (%) (Auto) % (45.0-75.0) Lymphocytes (%) (Auto) % (20.0-45.0) Monocytes (%) (Auto) % (1.0-10.0) Eosinophils (%) (Auto) % (0.0-3.0) Basophils (%) (Auto) % (0.0-2.0) Differential Total Cells Counted 100 Neutrophils % (Manual) 37 % (45-75) L Lymphocytes % (Manual) 55 % (20-45) H Monocytes % (Manual) 1 % (1-10) Eosinophils % (Manual) 7 % (0-3) H Basophils % (Manual) 0 % (0-2) Band Neutrophils 0 % (0-8) Platelet Estimate Decreased L Platelet Morphology Normal Red Blood Cell Morphology Normal Sodium Level 141 MMOL/L (136-145) Potassium Level 3.7 MMOL/L (3.5-5.1) Chloride Level 107 MMOL/L (98-107) Carbon Dioxide Level 26 MMOL/L (21-32) Anion Gap 8 mmol/L (5-15) Blood Urea Nitrogen 17 mg/dL (7-18) Creatinine 1.2 MG/DL (0.55-1.30) Estimat Glomerular Filtration Rate > 60 mL/min (>60) Glucose Level 105 MG/DL (74-106) Calcium Level 8.8 MG/DL (8.5-10.1) Current Medications Medications (Trade) Dose Ordered Sig/Sharla Route PRN Reason Start Time Stop Time Status Last Admin Dose Admin Acetaminophen (Tylenol) 650 mg Q4H PRN ORAL For Pain 05/15/19 17:45 06/14/19 17:44 05/25/19 23:34 Acetaminophen/ Hydrocodone Bitart ([place] 10/325) 1 tab Q4H PRN ORAL Severe Pain (Pain Scale 7-10) 05/24/19 09:00 05/31/19 08:59 05/26/19 10:30 Acetaminophen/ Hydrocodone Bitart ([place] 5/325) 1 tab Q4H PRN ORAL Moderate Pain (Pain Scale 4-6) 05/24/19 09:00 05/31/19 08:59 Al Hydroxide/Mg Hydroxide (Mylanta) 30 ml Q4H PRN ORAL dyspepsia 05/15/19 17:45 06/14/19 17:44 Chlorhexidine Gluconate (Chastity-Hex 2%) 1 applic DAILY@2000 TOPIC 05/18/19 20:00 06/17/19 19:59 05/25/19 21:11 Clonidine HCl (Catapres Tab) 0.1 mg Q4H PRN ORAL For High Blood Pressure 05/15/19 21:15 06/14/19 21:14 05/25/19 21:11 Heparin Sodium (Porcine) (Heparin 5000 units/ml) 5,000 units EVERY 12 HOURS SUBQ 05/16/19 09:00 06/15/19 08:59 Hydralazine HCl (Apresoline) 50 mg Q8HR ORAL 05/17/19 14:00 06/16/19 13:59 05/26/19 05:24 Pantoprazole (Protonix) 40 mg DAILY ORAL 05/16/19 09:00 06/15/19 08:59 05/26/19 09:10 Vancomycin HCl (Vanco rx to dose) 1 ea DAILY MISC 05/16/19 09:00 06/15/19 08:59 Vancomycin HCl/ Dextrose 275 ml @ 183.333 mls/hr Q12HR@1100,2300 IVPB 05/20/19 11:00 06/26/19 23:59 05/26/19 12:18 Edis Irving MD May 26, 2019 14:03
[2019-05-26 16:00] VITALS: BP 133/73
--- NOTE | 2019-05-26 17:07 | Surgery Progress Note ---
Surgery Progress Note Subjective Symptoms: improved, tolerating diet, passing flatus Objective Last 24 Hour Vital Signs Date Time Temp Pulse Resp B/P (MAP) Pulse Ox O2 Delivery O2 Flow Rate FiO2 05/26/19 14:14 140/77 05/26/19 12:00 98.6 67 20 140/77 (98) 96 05/26/19 11:00 98.5 05/26/19 09:00 Room Air 05/26/19 08:00 98.5 82 20 138/79 (98) 96 05/26/19 05:24 147/84 05/26/19 04:00 98.1 72 20 147/84 (105) 97 05/26/19 00:08 98.2 05/25/19 23:50 98.2 84 20 156/92 (113) 99 05/25/19 21:11 164/83 05/25/19 21:11 164/83 05/25/19 20:05 Room Air 05/25/19 20:00 98.6 70 20 164/83 (110) 97 I&O Intake and Output 05/25/19 05/26/19 19:00 07:00 Intake Total 1055.000 ml 275.000 ml Balance 1055.000 ml 275.000 ml IV Total 275.000 ml 275.000 ml Other 780 ml # Voids 4 # Bowel Movements 3 Dressing: dry Wound: clean Cardiovascular: RSR Respiratory: clear Abdomen: soft, non-tender, present bowel sounds Extremities: edema, no tenderness, no cyanosis Laboratory Tests Test 05/26/19 06:15 White Blood Count 5.2 K/UL (4.8-10.8) Red Blood Count 3.65 M/UL (4.70-6.10) L Hemoglobin 12.1 G/DL (14.2-18.0) L Hematocrit 35.5 % (42.0-52.0) L Mean Corpuscular Volume 97 FL (80-99) Mean Corpuscular Hemoglobin 33.1 PG (27.0-31.0) H Mean Corpuscular Hemoglobin Concent 34.0 G/DL (32.0-36.0) Red Cell Distribution Width 11.5 % (11.6-14.8) L Platelet Count 117 K/UL (150-450) L Mean Platelet Volume 7.8 FL (6.5-10.1) Neutrophils (%) (Auto) % (45.0-75.0) Lymphocytes (%) (Auto) % (20.0-45.0) Monocytes (%) (Auto) % (1.0-10.0) Eosinophils (%) (Auto) % (0.0-3.0) Basophils (%) (Auto) % (0.0-2.0) Differential Total Cells Counted 100 Neutrophils % (Manual) 37 % (45-75) L Lymphocytes % (Manual) 55 % (20-45) H Monocytes % (Manual) 1 % (1-10) Eosinophils % (Manual) 7 % (0-3) H Basophils % (Manual) 0 % (0-2) Band Neutrophils 0 % (0-8) Platelet Estimate Decreased L Platelet Morphology Normal Red Blood Cell Morphology Normal Sodium Level 141 MMOL/L (136-145) Potassium Level 3.7 MMOL/L (3.5-5.1) Chloride Level 107 MMOL/L (98-107) Carbon Dioxide Level 26 MMOL/L (21-32) Anion Gap 8 mmol/L (5-15) Blood Urea Nitrogen 17 mg/dL (7-18) Creatinine 1.2 MG/DL (0.55-1.30) Estimat Glomerular Filtration Rate > 60 mL/min (>60) Glucose Level 105 MG/DL (74-106) Calcium Level 8.8 MG/DL (8.5-10.1) Plan Problems: (1) Cellulitis of foot, right Assessment & Plan: Bones/joints: Destructive changes involving the first distal phalanx. Fracture and heterogeneity of the first proximal phalanx. Limited assessment of the second and fourth distal phalanges, cannot exclude fractures or destructive changes. Amputation of the third toe. Degenerative changes throughout the foot. Plantar and posterior calcaneal spurs. Osteopenia. Soft tissues: Soft tissue swelling and edema. Bilateral lower extremity edema pain and difficulty with ambulatory edema on and off for years. now worse past 2 weeks -Keep bilateral lower extremity elevated while in bed or chair -patient is wheelchair use majority of the time and does not walk actively for some time now. states his wheelchair is broken and wants new one. -DVT study noted and negative -picc for iv abx x 6 weeks appreciate Id input will follow with recs while in hospital thank you for allowing me to participate in patients care. (2) Liver cirrhosis (3) Osteomyelitis of foot, right, acute Patrick Ga May 26, 2019 17:07
--- NOTE | 2019-05-26 19:10 | NUR ---
HAND-OFF: Report given to Bella FATIMA.
--- NOTE | 2019-05-26 19:30 | NUR ---
NURSE NOTES: Patient awake in bed, with complaint of pain on the affected legs, barely medicated by previous shift. Instructed the use of call light. Bed in lowest position, lock engaged and alarm on. Will continue to monitor.
[2019-05-26 20:00] VITALS: BP 148/77
[2019-05-26] MEDS: Dyna-Hex 2% Top Sol 2oz TOPIC SCH (20:00)
[2019-05-27] VITALS: BP 153/85
[2019-05-27] MEDS: HYDROcodone/Acetamin 10/325 tab ORAL PRN ×2 (03:42→10:29)
[2019-05-27 04:00] VITALS: BP 141/73
--- NOTE | 2019-05-27 04:06 | NUR ---
NURSE NOTES: Dressings changed on both feet. Central line dressing changed.
[2019-05-27] MEDS: HydrALAZINE 50mg tab ORAL SCH ×2 (05:25→13:07)
--- NOTE | 2019-05-27 07:22 | NUR ---
HAND-OFF: Report given to AKUA Dowling.
--- NOTE | 2019-05-27 07:49 | NUR ---
NURSE NOTES: Patient awake, alert x3; PICC line on Left-Upper double lumen, dressing dry and intact, changed 05/27, flushes well; urinal and bed side commod within reach; dressing on foot dry and intact; side rails up x2, breaks engaged, bed at lowest position; call light within reach; will keep monitoring.
[2019-05-27 08:00] VITALS: BP 157/73
[2019-05-27] MEDS: Heparin 5000 units/ml inj SUBQ SCH (08:17)
--- NOTE | 2019-05-27 10:26 | Infectious Diseases Prog Note ---
Assessment/Plan Assessment/Plan antibiotics : vancomycin iv A 1. right foot osteomyelitis 2. hypertension 3. cirrhosis 4. CVA P 1. continue iv vancomycin 30 more days 2. cbc, bmp, vancomycin level q weekly 3. will follow up Subjective ROS Limited/Unobtainable: Yes Allergies: Coded Allergies: PENICILLINS (Verified Allergy, Unknown, 02/10/17) UNABLE TO ASSESS (Unverified , 03/01/18) Uncoded Allergies: PENICILLIN (Allergy, Unknown, 05/15/19) Objective Vital Signs Last 24 Hour Vital Signs Date Time Temp Pulse Resp B/P (MAP) Pulse Ox O2 Delivery O2 Flow Rate FiO2 05/27/19 09:00 Room Air 05/27/19 08:00 97.9 71 15 157/73 (101) 100 05/27/19 05:25 133/77 05/27/19 04:00 98.1 64 19 141/73 (95) 98 05/27/19 00:00 97.0 73 19 153/85 (107) 94 05/26/19 22:49 150/75 05/26/19 20:00 97.7 64 19 148/77 (100) 97 05/26/19 18:57 98.7 05/26/19 18:30 Room Air 05/26/19 16:00 98.7 66 19 133/73 (93) 97 05/26/19 14:14 140/77 05/26/19 12:00 98.6 67 20 140/77 (98) 96 Height (Feet): 6 Height (Inches): 1.00 Weight (Pounds): 228 Respiratory/Chest: lungs clear Cardiovascular: normal rate, regular rhythm, no gallop/murmur Abdomen: soft, non tender Extremities: no edema, other - right foot in dressings, left arm PICC Current Medications Medications (Trade) Dose Ordered Sig/Sharla Route PRN Reason Start Time Stop Time Status Last Admin Dose Admin Acetaminophen (Tylenol) 650 mg Q4H PRN ORAL For Pain 05/15/19 17:45 06/14/19 17:44 05/25/19 23:34 Acetaminophen/ Hydrocodone Bitart ([place] 10/325) 1 tab Q4H PRN ORAL Severe Pain (Pain Scale 7-10) 05/24/19 09:00 05/31/19 08:59 05/27/19 03:42 Acetaminophen/ Hydrocodone Bitart ([place] 5/325) 1 tab Q4H PRN ORAL Moderate Pain (Pain Scale 4-6) 05/24/19 09:00 05/31/19 08:59 Al Hydroxide/Mg Hydroxide (Mylanta) 30 ml Q4H PRN ORAL dyspepsia 05/15/19 17:45 06/14/19 17:44 Chlorhexidine Gluconate (Chastity-Hex 2%) 1 applic DAILY@2000 TOPIC 05/18/19 20:00 06/17/19 19:59 05/25/19 21:11 Clonidine HCl (Catapres Tab) 0.1 mg Q4H PRN ORAL For High Blood Pressure 05/15/19 21:15 06/14/19 21:14 05/25/19 21:11 Heparin Sodium (Porcine) (Heparin 5000 units/ml) 5,000 units EVERY 12 HOURS SUBQ 05/16/19 09:00 06/15/19 08:59 Hydralazine HCl (Apresoline) 50 mg Q8HR ORAL 05/17/19 14:00 06/16/19 13:59 05/27/19 05:25 Pantoprazole (Protonix) 40 mg DAILY ORAL 05/16/19 09:00 06/15/19 08:59 05/27/19 08:17 Vancomycin HCl (Vanco rx to dose) 1 ea DAILY MISC 05/16/19 09:00 06/15/19 08:59 Vancomycin HCl/ Dextrose 275 ml @ 183.333 mls/hr Q12HR@1100,2300 IVPB 05/20/19 11:00 06/26/19 23:59 05/26/19 22:57 Valarie Quintana MD May 27, 2019 10:26
--- NOTE | 2019-05-27 10:52 | NUR ---
DISCHARGE DISPOSITION: PLEASE READ PATIENT TO BE DISCHARGED TO [facility] [address] T: [phone]>> CALL FOR REPORT [facility] ETA 1300 ATTEMPTED TO CONTACT SISTER RUDDY STORM [phone] PHONE [facility] [employer] [facility] UNABLE TO LEAVE SKILLED
--- NOTE | 2019-05-27 11:00 | NUR ---
NURSE NOTES: Wound care provided by Wound care nurse. Dressing dry and intact.
[2019-05-27] MEDS: Vancomycin 1.25gm Premix IVPB SCH (11:35)
[2019-05-27 12:00] VITALS: BP 150/77
--- NOTE | 2019-05-27 12:05 | NUR ---
NURSE NOTES: I received an order to continue Hospital meds and Vancomycin for 30 days upon discharge. Also to keep PICC line upon discharge.
[2019-05-27] MEDS ORDERED: VANCOMYCIN1.5 GM/300 IV (12:07)
[2019-05-27] MEDS ORDERED: HYDRALAZINE HCL50 MG ORAL (12:08)
[2019-05-27] MEDS ORDERED: PROTONIX40 MG ORAL (12:08)
--- NOTE | 2019-05-27 12:10 | NUR ---
NURSE NOTES: Per Dr. Catherine, Patient to discharge with PICC to continue IV vancomycin at SNF. Also patient to continue hospital medications upon discharge.
--- NOTE | 2019-05-27 12:48 | NUR ---
NURSE NOTES: Report given to AKUA Renee at [facility], [place].
[2019-05-27 13:07] VITALS: BP 150/77
--- NOTE | 2019-05-27 15:03 | NUR ---
NURSE NOTES: Patient discharged to [facility], [place]; ambulance picked up patient around 1500; report given to AKUA Renee at [facility]; PICC line kept and dressing on the PICC line dry and intact; dressing on bilateral lower extremities, dry and intact; name tag removed; belonging lists including wheelchair singed by patient and primary nurse; printed package given to ambulance personnel. Patient is stable upon discharge.
--- NOTE | 2019-05-27 19:17 | Surgery Progress Note ---
Surgery Progress Note Subjective Additional Comments patient seen and examined earlier today. doing much better still wants a new wheelchair no n/v//f clabs okay d/c plan for today Objective Last 24 Hour Vital Signs Date Time Temp Pulse Resp B/P (MAP) Pulse Ox O2 Delivery O2 Flow Rate FiO2 05/27/19 13:07 150/77 05/27/19 12:00 98.0 69 18 150/77 (101) 98 05/27/19 09:00 Room Air 05/27/19 08:00 97.9 71 15 157/73 (101) 100 05/27/19 05:25 133/77 05/27/19 04:00 98.1 64 19 141/73 (95) 98 05/27/19 00:00 97.0 73 19 153/85 (107) 94 05/26/19 22:49 150/75 05/26/19 20:00 97.7 64 19 148/77 (100) 97 I&O Intake and Output 05/26/19 05/27/19 19:00 07:00 Intake Total 1075.000 ml Output Total 300 ml 850 ml Balance 775.000 ml -850 ml Intake Oral 800 ml IV Total 275.000 ml Output Urine Total 300 ml 850 ml # Voids 4 Dressing: saturated Wound: other Drains: other Cardiovascular: RSR Respiratory: clear Abdomen: soft, flat, non-tender, present bowel sounds Extremities: edema, no tenderness, no cyanosis Plan Problems: (1) Cellulitis of foot, right Assessment & Plan: Bones/joints: Destructive changes involving the first distal phalanx. Fracture and heterogeneity of the first proximal phalanx. Limited assessment of the second and fourth distal phalanges, cannot exclude fractures or destructive changes. Amputation of the third toe. Degenerative changes throughout the foot. Plantar and posterior calcaneal spurs. Osteopenia. Soft tissues: Soft tissue swelling and edema. Bilateral lower extremity edema pain and difficulty with ambulatory edema on and off for years. now worse past 2 weeks -Keep bilateral lower extremity elevated while in bed or chair -patient is wheelchair use majority of the time and does not walk actively for some time now. states his wheelchair is broken and wants new one. -DVT study noted and negative -picc for iv abx x 6 weeks appreciate Id input will follow with recs while in hospital d/c today thank you for allowing me to participate in patients care. (2) Liver cirrhosis (3) Osteomyelitis of foot, right, acute Patrick Ga May 27, 2019 19:17
--- NOTE | 2019-05-29 16:03 | Discharge Summary ---
Discharge Summary Discharge Summary _ DATE OF ADMISSION: 05/15/2019 DATE OF DISCHARGE: 05/27/2019 DISCHARGED BY: Dr. Darrian Catherine CONSULTANTS: Dr. Valarie Ga BRIEF HOSPITAL COURSE: Patient is a 63-year-old male with multiple medical problems. Patient was in methadone program. He presented to ED for evaluation of lower extremity pain and swelling. Patient was unable to bear weight. He has medical history notable for CAD, CVA, hypertension, hyperlipidemia, chronic kidney disease, dementia, liver cirrhosis, alcohol abuse, and opioid dependence. On evaluation at the ED, blood pressure was elevated to 163/89, pulse rate 65, O2 saturation 99% on room air, he was afebrile. Right lower extremity was edematous and erythematous. There were ulcerative lesions less than 1 cm over the right great toe and second toe on the right foot. There was significant edema in the right foot and tenderness to palpation. There was noted venous stasis changes. Blood work did not show any leukocytosis, hemoglobin and hematocrit were stable electrolytes were normal. Lactic acid 1.2. Troponin 0 0.011. proBNP was 169. LFTs were elevated probably due to given history of alcohol abuse. X-ray of the right foot showed destructive changes involving the first distal phalanx. Fracture and heterogeneity of the first proximal phalanx. Limited assessment of the second and fourth distal phalanges, cannot exclude fractures or destructive changes. Amputation of the third toe. Degenerative changes. Soft tissue swelling and edema. There was no obvious subcutaneous gas collection or osteomyelitis seen on x-ray. Patient was not able to ambulate. He was then admitted to medical floor for right foot cellulitis. Surgeon was consulted. Patient had bilateral lower extremity edema and edema has been on and off for years, however was worse during the past 2 weeks. He uses wheelchair most of the time and does not walk actively for some time now. He was recommended to keep bilateral lower extremity elevated while in bed or chair. Venous duplex of the right lower extremity did not show any evidence of deep venous thrombosis. Patient likely with chronic venous stasis based on skin changes and exam. ID was consulted. Patient was continued on IV vancomycin and Levaquin. Amikacin was discontinued. Right foot MRI without contrast showed chronic osteomyelitis of the first and second distal phalanges with reactive edema of the first metatarsal head and subjacent sesamoids. Levaquin was discontinued. He was continued on IV vancomycin. Was given wound care. He was given pain management. He was given physical therapy. Patient will need 6 weeks IV antibiotics. PICC line was inserted to the left upper extremity. Patient had a prolonged stay due to placement issues. Finally, patient was accepted at [facility]. Patient was then discharged to SNF with IV line intact for antibiotic use. FINAL DIAGNOSES: Acute on chronic right foot osteomyelitis status post PICC line placement Significant cellulitis of the right foot with associated edema and erythema Mild anemia Chronic kidney disease per history Elevated liver enzymes Protein calorie malnutrition Liver cirrhosis Hypertension DISPOSITION: Patient was discharged to a SNF. DISCHARGE MEDICATIONS: Refer to Discharge Medication List. I have been assigned to complete a discharge summary on this account, I was not involved with the patient's management.--LIANNA Epstein Jacqueline Robles NP May 29, 2019 16:03 Xiao Mejía NP May 29, 2019 16:03
== END 2019-05-27 14:57 | DRG 344 ==
LOC: EDBD 10:21 → EMR 10:28 → EDBEDREQ 12:28 → 4E 12:36 → EDBEDREQ 16:30
PROC: 02HV33Z Insertion of Infusion Device into Superior Vena Cava, Percutaneous Approach (ICD-10-PCS; principal; 2019-05-18)
DX: M86.171 Other acute osteomyelitis, right ankle and foot (principal); L03.115 Cellulitis of right lower limb; N18.9 Chronic kidney disease, unspecified; F03.90 Unspecified dementia, unspecified severity, without behavioral disturbance, psychotic disturbance, mood disturbance, and anxiety; E46 Unspecified protein-calorie malnutrition; D64.9 Anemia, unspecified; I25.10 Atherosclerotic heart disease of native coronary artery without angina pectoris; Z86.73 Personal history of transient ischemic attack (TIA), and cerebral infarction without residual deficits; E78.5 Hyperlipidemia, unspecified; F11.20 Opioid dependence, uncomplicated; M86.671 Other chronic osteomyelitis, right ankle and foot; K74.60 Unspecified cirrhosis of liver; I12.9 Hypertensive chronic kidney disease with stage 1 through stage 4 chronic kidney disease, or unspecified chronic kidney disease; F10.10 Alcohol abuse, uncomplicated; Z88.0 Allergy status to penicillin; Z89.421 Acquired absence of other right toe(s); Z87.891 Personal history of nicotine dependence; F19.11 Other psychoactive substance abuse, in remission
CPT/HCPCS: 36415; 36569; 71045; 76937; 80048; 80053; 80150; 80202; 81003; 83605; 83735; 83880; 84100; 84484; 85007; 85025; 87040; 87081; 93971; 96365; 99285; S0077

== ENCOUNTER 2019-08-12 20:26 | Emergency (ER) | payer OTHER ==
[~2019-08-12] VITALS: Ht 175.3 cm; Wt 83.9 kg
[~2019-08-12 20:26] MED LIST changes: +HYDRALAZINE HCL50 MG ORAL; +VANCOMYCIN1.5 GM/300 IV
--- NOTE | 2019-08-12 21:16 | Emergency Room Report ---
History of Present Illness General Chief Complaint: Pain Source: Patient Present Illness HPI Disclaimer: Please note that this report is being documented using DRAGON technology. This can lead to erroneous entry secondary to incorrect interpretation by the dictating instrument. HPI: 68-year-old male with a history of chronic right foot osteomyelitis status post prolonged PICC line for IV antibiotics at the [facility], anemia, CKD, alcohol abuse, liver cirrhosis, hypertension presents for evaluation of left foot pain after a fall. The patient normally has a wheelchair to get around however he states he slipped out of it onto this left side hitting his knee against the ground as well as his ankle and foot. He is complaining of pain over the knee and a clicking sensation when he flexes it. States it is difficult for him to bear weight on it now. He was seen at [facility] on 08/05 where his wounds were re-bandaged. He states that he left the [facility] and had his PICC line pulled though did not fully complete his antibiotics. Denies any purulent drainage, significant swelling or change in his general health in the last few weeks. There is no head injury, no loss conscious, no other injury reported when he slid out of the wheelchair. PMH: Reviewed in chart PSH: Multiple amputations of the digits on the lower extremities, multiple surgical debridements Allergies: None reported Social Hx: Street alcohol abuse Allergies: Coded Allergies: PENICILLINS (Verified Allergy, Unknown, 02/10/17) UNABLE TO ASSESS (Unverified , 03/01/18) Uncoded Allergies: PENICILLIN (Allergy, Unknown, 05/15/19) Nursing Documentation-PMH Past Medical History: No History, Except For Hx Cardiac Problems: Yes Hx Hypertension: Yes Hx Diabetes: Yes Hx Cancer: No Hx Gastrointestinal Problems: No Hx Neurological Problems: No Hx Cerebrovascular Accident: Yes Hx Transient Ischemic Attacks: No Hx Dementia: No Hx Alzheimer's Disease: No Hx Seizures: No Hx Epilepsy: No Hx Paralysis: No Hx Peripheral Neuropathy: Yes Hx Head Trauma: Yes Hx Traumatic Brain Injury: No Hx Speech Problem: Yes - Slurring d/t CVA Hx Dizziness: No Hx Headaches: Yes Hx Numbness: No Hx Weakness: No Hx Neurologic Surgery: No Hx Brain Shunt: No Review of Systems All Other Systems: negative except mentioned in HPI Physical Exam Vital Signs Date Time Temp Pulse Resp B/P (MAP) Pulse Ox O2 Delivery O2 Flow Rate FiO2 08/12/19 20:21 98.1 92 14 146/76 (99) 99 Room Air General: Awake and alert, no acute distress, sleeping on my evaluation, unkempt HEENT: NC/AT. EOMI. very poor dentition Resp: Normal work of breathing. Skin: No open sores, crusting or weeping. There are well-healed scars over the lower extremity's bilaterally as well as feel a stasis changes up to the knees bilaterally. No warmth, no fluctuance. MSK: Normal tone and bulk. Moving all extremities. Amputations of multiple digits of the right foot. There is a well-healing ulcer on the medial aspect of the base of the left great toe without signs of acute infection, no erythema , no fluctuance, no drainage. There is a clicking on knee flexion and extension at the knee joint itself is stable on varus and valgus testing as well as Lochmann's test. No tenderness over the patella. No effusions noted. No deformity over the tibia or fibula. No deformity in the ankle or foot. There is some tenderness over the medial malleolus anterior and posterior aspect on the left lower extremity. Neuro: Awake and alert. Mentating appropriately. There is decreased sensation over the lower extremity bilaterally below the knees Medical Decision Making Homeless Attestation Patient has been medically screened, evaluated and treated by me and determined to be safe for outpatient follow-up. Diagnostic Impression: Primary Impression: Fracture of distal end of left tibia ER Course 63-year-old male with a history of chronic osteomyelitis over the lower extremities, venous stasis changes, multiple amputations presents for evaluation of acute on chronic left lower extremity pain in the knee, macedo, ankle and foot after he slipped out of his wheelchair falling onto his left side. There is no head injury loss of consciousness no other injuries reported. Patient is resting comfortably on my evaluation but has tenderness over the medial malleolus as well as in the knee. Will obtain x-rays to rule out fracture and have his wounds redressed. There is no active sign of infection, no purulence, no drainage in general and no open sores. Will re- bandage the legs after x-rays. Other X-Ray Diagnostic Results Other X-Ray Diagnostic Results #1: X-Ray ordered: Left foot # of Views/Limited Vs Complete: Complete Indication: Pain EP Interpretation: Yes Interpretation: no dislocation, no soft tissue swelling, no fractures Impression: No acute disease Electronically Signed by: Electronically signed by Dr. Oswaldo Portillo Other X-Ray Diagnostic Results #2: X-Ray ordered: Left ankle # of Views/Limited Vs Complete: Complete Indication: Pain EP Interpretation: Yes Interpretation: other - Questionable lucency distal tibia Impression: Other - Possible fracture distal tibia Electronically Signed by: Electronically signed by Dr. Oswaldo Portillo Other X-Ray Diagnostic Results #3: X-Ray ordered: Left lower extremity # of Views/Limited Vs Complete: 2 View Indication: Pain Interpretation: other - Questionable lucency distal tibia Impression: Other - Questionable lucency distal tibia Electronically Signed by: Electronically signed by Dr. Oswaldo Portillo Other X-Ray Diagnostic Results #4: X-Ray ordered: Left knee # of Views/Limited Vs Complete: Complete Indication: Pain EP Interpretation: Yes Interpretation: no dislocation, no soft tissue swelling, no fractures Impression: No acute disease Electronically Signed by: Electronically signed by Dr. Oswaldo Portillo Reevaluation Time: 23:11 Last Vital Signs Date Time Temp Pulse Resp B/P (MAP) Pulse Ox O2 Delivery O2 Flow Rate FiO2 08/12/19 20:21 98.1 92 14 146/76 (99) 99 Room Air Reevaluation Impression Radiology interpretation finds a lucency in the left distal tibia that is either a fracture or presents osteopenia. The patient does have tenderness there and given his fall we will place him in an AO splint for stability. He has his wheelchair and can ambulate safely but will write him a prescription for another one as he states that he needs a new foot pedal. He will follow-up with orthopedic surgery and his PMD. Numbers have been provided to him to contact for reevaluation. He is safe and appropriate to follow-up as an outpatient. Disposition: HOME, SELF-CARE Condition: Stable Scripts [misc] No Conflict Check UNIT for wheelchair, #1 Prov: Oswaldo Portillo MD 08/13/19 Ibuprofen* (MOTRIN*) 600 Mg Tablet 600 MG ORAL THREE TIMES A DAY, #30 TAB 0 Refills Prov: Oswaldo Portillo MD 08/13/19 Oswaldo Portillo MD Aug 12, 2019 21:16
[2019-08-12 21:22] VITALS: BP 146/76
--- NOTE | 2019-08-12 21:27 | NUR ---
ED Nurse Note: Patient was BIBA from street due to bilaterally legs pain 06/14. Patient presented with severe cellulitis of both legs, pt has smelly wounds on the lower extremities. AAO x4, VSS at this time.
--- NOTE | 2019-08-12 22:34 | Diagnostic Imaging Report ---
EXAM: XR Left Tibia and Fibula, 2 Views CLINICAL HISTORY: INJ TECHNIQUE: Frontal and lateral views of the left tibia and fibula. COMPARISON: No relevant prior studies available. FINDINGS: Bones joints: Lucency in the distal tibia that may be from subtle fracture or osteopenia. Soft tissues: Soft tissue swelling. IMPRESSION: Lucency in the distal tibia that may be from subtle fracture or osteopenia.
--- NOTE | 2019-08-12 22:36 | Diagnostic Imaging Report ---
EXAM: XR Left Ankle Complete, 3 or More Views CLINICAL HISTORY: INJ TECHNIQUE: Frontal, lateral and oblique views of the left ankle. COMPARISON: No relevant prior studies available. FINDINGS: Bones joints: Lucency in the distal tibia that may be from subtle fracture or osteopenia. Soft tissues: Soft tissue swelling. IMPRESSION: Lucency in the distal tibia that may be from subtle fracture or osteopenia.
--- NOTE | 2019-08-12 22:36 | Diagnostic Imaging Report ---
EXAM: XR Left Knee, 3 views CLINICAL HISTORY: INJ TECHNIQUE: Three views of the left knee. COMPARISON: No relevant prior studies available. FINDINGS: Bones joints: No acute fracture. Trace effusion. Degenerative changes. Chondrocalcinosis. Soft tissues: No radiodense foreign body. IMPRESSION: No acute fracture.
[2019-08-12] MEDS ORDERED: HYDROcodone/Acetamin 7.5/325 tab ORAL ONE (23:00)
--- NOTE | 2019-08-12 23:05 | Diagnostic Imaging Report ---
EXAM: XR Left Foot Complete, 3 or More Views CLINICAL HISTORY: INJ TECHNIQUE: Frontal, lateral and oblique views of the left foot. COMPARISON: No relevant prior studies available. FINDINGS: Bones joints: No acute fracture. Osteopenia and degenerative changes. Plantar calcaneal spur. Soft tissues: Soft tissue swelling. No radiodense foreign body. IMPRESSION: No acute fracture.
[2019-08-13] MEDS ORDERED: misc (00:07)
[2019-08-13] MEDS ORDERED: IBUPROFEN600 MG ORAL (00:07)
[2019-08-13 00:16] VITALS: BP 146/76
--- NOTE | 2019-08-13 00:37 | NUR ---
ED Nurse Note: Pt cleared by health care Provider for discharge. DC instructions/prescription was given and explained to pt and verbalized understanding of teachings. All medical deviecs such as ID band removed. Pt is AAO x4, ambulatory and left with all personal belongings.
== END 2019-08-13 00:37 | disposition home or self-care (01) ==
LOC: EDBD 20:26 → EMR 21:50
DX: S82.302A Unspecified fracture of lower end of left tibia, initial encounter for closed fracture (principal); W05.0XXA Fall from non-moving wheelchair, initial encounter; Y92.9 Unspecified place or not applicable; Z88.0 Allergy status to penicillin; I12.9 Hypertensive chronic kidney disease with stage 1 through stage 4 chronic kidney disease, or unspecified chronic kidney disease; N18.9 Chronic kidney disease, unspecified; Z86.73 Personal history of transient ischemic attack (TIA), and cerebral infarction without residual deficits; E11.22 Type 2 diabetes mellitus with diabetic chronic kidney disease; E11.40 Type 2 diabetes mellitus with diabetic neuropathy, unspecified
CPT/HCPCS: 73562; 73590; 73600; 73630; Z7502; 99284

== ENCOUNTER 2019-08-16 18:45 | Inpatient (IN) | payer OTHER ==
[~2019-08-16] VITALS: Ht 185.4 cm; Wt 99.3 kg
[~2019-08-16 18:45] MED LIST changes: +misc
[2019-08-16 20:00] VITALS: BP 180/97
[2019-08-16] MEDS ORDERED: HYDROmorphone 1mg/ml Carpuject IM ONE (20:00)
[2019-08-16] MEDS ORDERED: LORazepam Inj 2mg/ml 1ml IM ONE (20:15)
[2019-08-16] MEDS ORDERED: Haloperidol 5mg/ml Inj IM ONE (20:15)
[2019-08-16 20:41] LABS: BASOPHILS % (AUTO) 2.9 % (0.0-2.0); EOSINOPHILS % (AUTO) 3.2 % (0.0-3.0); HEMATOCRIT 40.7 % (42.0-52.0); HEMOGLOBIN 14.8 G/DL (14.2-18.0); LYMPHOCYTES % (AUTO) 20.4 % (20.0-45.0); MEAN CORPUSCULAR VOLUME 94 FL (80-99); MONOCYTES % (AUTO) 10.9 % (1.0-10.0); NEUTROPHILS % (AUTO) 62.6 % (45.0-75.0); PLATELET COUNT 115 K/UL (150-450); RED BLOOD COUNT 4.34 M/UL (4.70-6.10); RED CELL DISTRIBUTION WIDTH 11.1 % (11.6-14.8); WHITE BLOOD COUNT 8.1 K/UL (4.8-10.8)
[2019-08-16] MEDS ORDERED: Acetaminophen 650 MG SUPP RECTAL ONE (20:45)
[2019-08-16] MEDS ORDERED: Sodium Chloride 3,100 ML IVLG ONE (20:45)
[2019-08-16 21:40] LABS: ANION GAP 6 mmol/L (5-15); BLOOD UREA NITROGEN 17 mg/dL (7-18); CALCIUM 8.6 MG/DL (8.5-10.1); CARBON DIOXIDE 29 MMOL/L (21-32); CHLORIDE 99 MMOL/L (98-107); CREATININE 1.4 MG/DL (0.55-1.30); POTASSIUM 4.2 MMOL/L (3.5-5.1); SODIUM 134 MMOL/L (136-145)
[2019-08-16 21:41] LABS: AMMONIA 95 umol/L (11-32)
[2019-08-16] MEDS ORDERED: Vancomycin 1.5 GM in NS 275 ML IVPB ONE (21:45)
[2019-08-16 21:50] LABS: ALANINE AMINOTRANSFERASE 64 U/L (12-78); ALBUMIN 2.6 G/DL (3.4-5.0); ALBUMIN/GLOBULIN RATIO 0.4 (1.0-2.7); ALKALINE PHOSPHATASE 78 U/L (46-116); ASPARTATE AMINO TRANSFERASE 108 U/L (15-37); BILIRUBIN,TOTAL 1.6 MG/DL (0.2-1.0); CREATINE KINASE 562 U/L (26-308)
[2019-08-16 21:53] LABS: BILIRUBIN,DIRECT 0.9 MG/DL (0.0-0.3)
[2019-08-16 22:32] VITALS: BP 135/82
--- NOTE | 2019-08-16 22:33 | Emergency Room Report ---
History of Present Illness General Chief Complaint: Lower Extremity Injury Source: Patient, EMS Present Illness HPI 63-year-old male presents ED for evaluation. Brought in by EMS from Street. Complaining of leg pain. Patient has left leg in a cast. Right leg has dressings on it. History of osteomyelitis in the past. Patient is providing limited history at this time. Moaning in pain. 10 out of 10, dull, nonradiating. Tachycardic. Denies chest pain or shortness of breath. No other aggravating relieving factors. Denies any other associated symptoms Allergies: Coded Allergies: PENICILLINS (Verified Allergy, Unknown, 02/10/17) UNABLE TO ASSESS (Unverified , 03/01/18) Uncoded Allergies: PENICILLIN (Allergy, Unknown, 05/15/19) Patient History Past Medical History: DM, HTN, CVA/TIA Social History: Denies: smoking, alcohol use, drug use Immunizations: UTD Reviewed Nursing Documentation: PMH: Agreed; PSxH: Agreed Nursing Documentation-PMH Past Medical History: No History, Except For Hx Cardiac Problems: Yes Hx Hypertension: Yes Hx Diabetes: Yes Hx Cancer: No Hx Gastrointestinal Problems: No Hx Neurological Problems: No Hx Cerebrovascular Accident: Yes Hx Transient Ischemic Attacks: No Hx Dementia: No Hx Alzheimer's Disease: No Hx Seizures: No Hx Epilepsy: No Hx Paralysis: No Hx Peripheral Neuropathy: Yes Hx Head Trauma: Yes Hx Traumatic Brain Injury: No Hx Speech Problem: Yes - Slurring d/t CVA Hx Dizziness: No Hx Headaches: Yes Hx Numbness: No Hx Weakness: No Hx Neurologic Surgery: No Hx Brain Shunt: No Review of Systems All Other Systems: limited Physical Exam Vital Signs Date Time Temp Pulse Resp B/P (MAP) Pulse Ox O2 Delivery O2 Flow Rate FiO2 08/16/19 18:44 98.4 120 17 187/96 (126) 97 Room Air Sp02 EP Interpretation: reviewed, normal General Appearance: alert, mild distress, other - disheveled Head: normocephalic Eyes: bilateral eye normal inspection, bilateral eye PERRL ENT: normal ENT inspection Neck: normal inspection Respiratory: chest non-tender, lungs clear, normal breath sounds, speaking full sentences Cardiovascular #1: tachycardia Gastrointestinal: normal bowel sounds, non tender, soft, non-distended, no guarding, no rebound Rectal: deferred Genitourinary: no CVA tenderness Musculoskeletal: tender - L ankle swelling Neurologic: alert, motor strength/tone normal, sensory intact, speech normal, other - moaning. agitated Psychiatric: no suicidal/homicidal ideation, no delusions, other - poor historian Skin: other - erythema/weeping skin LLE. 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 Clinical course Patient placed on stretcher. After initial history, exam reveals a elderly male in mild distress. Not communicating appropriately only moaning in pain. Points to his lower extremities. Left leg in a posterior splint. Right leg with bandages. When removed shows a significant ulceration with cellulitis to the right leg. Status post amputation of toes to the right leg. Patient is very difficult and not cooperative during assessment. Haldol and Ativan given to facilitate treatment. Patient is tachycardic. Patient has very difficult IV access. Multiple attempts made but ultimately IV established by nursing. patient does have a documented fever. Given rectal Tylenol. IV fluids started. labs reviewed -no leukocytosis, Hb/Hct stable, Cr 1.4, LFTs elevated, ammonia elevated, trop 0.062 EKG - sinus tachycardia no acute ischemic changes interpreted by me Patient was seen here on 08/12. Status post fall. X-ray showed lucency in distal tibia and fibula and placed in posterior splint. Subsequently resplinted wound culture obtained. antibiotics given. 30 cc/kg fluid bolus. Given Toradol. given lactulose Case discussed with Dr Arauz and he agreed to accept the patient to his service for further care and support Diagnosis - fracture of distal end of left tibia, neuropathcic ulcer of foot with fat layer exposed, peripheral neuropathy, liver cirrhosis Patient admitted to telemetry in serious condition Labs Test 08/16/19 20:17 08/16/19 21:02 White Blood Count 8.1 K/UL (4.8-10.8) Red Blood Count 4.34 M/UL (4.70-6.10) Hemoglobin 14.8 G/DL (14.2-18.0) Hematocrit 40.7 % (42.0-52.0) Mean Corpuscular Volume 94 FL (80-99) Mean Corpuscular Hemoglobin 34.0 PG (27.0-31.0) Mean Corpuscular Hemoglobin Concent 36.3 G/DL (32.0-36.0) Red Cell Distribution Width 11.1 % (11.6-14.8) Platelet Count 115 K/UL (150-450) Mean Platelet Volume 7.7 FL (6.5-10.1) Neutrophils (%) (Auto) 62.6 % (45.0-75.0) Lymphocytes (%) (Auto) 20.4 % (20.0-45.0) Monocytes (%) (Auto) 10.9 % (1.0-10.0) Eosinophils (%) (Auto) 3.2 % (0.0-3.0) Basophils (%) (Auto) 2.9 % (0.0-2.0) Sodium Level 134 MMOL/L (136-145) Potassium Level 4.2 MMOL/L (3.5-5.1) Chloride Level 99 MMOL/L (98-107) Carbon Dioxide Level 29 MMOL/L (21-32) Anion Gap 6 mmol/L (5-15) Blood Urea Nitrogen 17 mg/dL (7-18) Creatinine 1.4 MG/DL (0.55-1.30) Estimat Glomerular Filtration Rate > 60 mL/min (>60) Glucose Level 126 MG/DL (74-106) Lactic Acid Level 1.80 mmol/L (0.4-2.0) Calcium Level 8.6 MG/DL (8.5-10.1) Total Bilirubin 1.6 MG/DL (0.2-1.0) Direct Bilirubin 0.9 MG/DL (0.0-0.3) Aspartate Amino Transf (AST/SGOT) 108 U/L (15-37) Alanine Aminotransferase (ALT/SGPT) 64 U/L (12-78) Alkaline Phosphatase 78 U/L (46-116) Ammonia 95 umol/L (11-32) Total Creatine Kinase 562 U/L (26-308) Troponin I 0.062 ng/mL (0.000-0.056) Total Protein 8.8 G/DL (6.4-8.2) Albumin 2.6 G/DL (3.4-5.0) Globulin 6.2 g/dL Albumin/Globulin Ratio 0.4 (1.0-2.7) Acetaminophen Level < 2 MCG/ML (10-30) Serum Alcohol < 3 mg/dL EKG Diagnostic Results Rate: tachycardiac Rhythm: NSR ST Segments: no acute changes ASA given to the pt in ED: No Rhythm Strip Diag. Results EP Interpretation: yes Rhythm: NSR, no PVC's, no ectopy Chest X-Ray Diagnostic Results Chest X-Ray Diagnostic Results : Chest X-Ray Ordered: Yes # of Views/Limited/Complete: 1 View Indication: Other EP Interpretation: Yes Interpretation: no consolidation, no effusion, no pneumothorax, no acute cardiopulmonary disease Impression: No acute disease Electronically Signed by: Electronically signed by Petre Peraza MD Last Vital Signs Date Time Temp Pulse Resp B/P (MAP) Pulse Ox O2 Delivery O2 Flow Rate FiO2 08/16/19 18:44 98.4 120 17 187/96 (126) 97 Room Air Status: improved Disposition: ADMITTED INPATIENT Condition: Serious Referrals: NON PHYSICIAN (PCP) Peter Peraza MD Aug 16, 2019 22:33
[2019-08-16] MEDS ORDERED: Lactulose 20gm/30ml UDC ORAL ONE (22:45)
[2019-08-17] VITALS (15 sets, daily range): BP systolic 120–181; BP diastolic 56–113
[2019-08-17] MEDS ORDERED: Morphine Sulfate 2mg/ml Inj(IV/IM USE ONLY) IVP PRN ×3 (01:30→14:27)
[2019-08-17 05:18] LABS: BASOPHILS % (AUTO) 1.5 % (0.0-2.0); EOSINOPHILS % (AUTO) 0.9 % (0.0-3.0); HEMATOCRIT 35.4 % (42.0-52.0); HEMOGLOBIN 12.1 G/DL (14.2-18.0); MEAN CORPUSCULAR VOLUME 97 FL (80-99); MONOCYTES % (AUTO) 8.3 % (1.0-10.0); NEUTROPHILS % (AUTO) 73.2 % (45.0-75.0); PLATELET COUNT 118 K/UL (150-450); RED BLOOD COUNT 3.66 M/UL (4.70-6.10); RED CELL DISTRIBUTION WIDTH 12.2 % (11.6-14.8)
[2019-08-17 05:45] LABS: AMMONIA 47 umol/L (11-32)
[2019-08-17 06:05] LABS: ALANINE AMINOTRANSFERASE 51 U/L (12-78); ALBUMIN 2.2 G/DL (3.4-5.0); ALBUMIN/GLOBULIN RATIO 0.4 (1.0-2.7); ALKALINE PHOSPHATASE 64 U/L (46-116); ANION GAP 6 mmol/L (5-15); ASPARTATE AMINO TRANSFERASE 107 U/L (15-37); BILIRUBIN,TOTAL 1.8 MG/DL (0.2-1.0); BLOOD UREA NITROGEN 18 mg/dL (7-18); CARBON DIOXIDE 27 MMOL/L (21-32); CHLORIDE 103 MMOL/L (98-107); CREATININE 1.3 MG/DL (0.55-1.30); SODIUM 136 MMOL/L (136-145)
[2019-08-17 06:36] LABS: BILIRUBIN,DIRECT 1.1 MG/DL (0.0-0.3)
--- NOTE | 2019-08-17 08:59 | Consultation ---
History of Present Illness General Date patient seen: Aug 17, 2019 Time patient seen: 07:45 - am Chief Complaint: B/L LE pain Referring physician: Dr. Arauz Reason for Consultation: Pain Management Present Illness HPI Patient was admitted to [facility] found by EMS and complaining of leg pain with h/o left tibia fx s/p casting, right leg bandages are applied due to non healing ulcer. Pain on admission was a 10 out of 10, dull now patient has mild pain. Was started on Morphine 2mg IV Q4H PRN no doses were administered. D/w Nurse. We were consulted so patient as adequate pain control while here in the hospital. Allergies: Coded Allergies: PENICILLINS (Verified Allergy, Unknown, 02/10/17) Uncoded Allergies: PENICILLIN (Allergy, Unknown, 05/15/19) Medication History Scheduled Hydralazine Hcl* (Hydralazine Hcl*), 50 MG ORAL EVERY 8 HOURS, (Reported) Metoprolol Tartrate* (Metoprolol Tartrate*), 25 MG ORAL EVERY 12 HOURS, ( Reported) Discontinued Medications Amlodipine Besylate (Norvasc), 5 MG ORAL BID Discontinued Reason: Therapy completed Atenolol* (Tenormin*), 25 MG ORAL DAILY Discontinued Reason: Therapy completed Gabapentin* (Gabapentin*), 100 MG ORAL THREE TIMES A DAY Discontinued Reason: Therapy completed Hydrochlorothiazide (Hydrochlorothiazide), 12.5 MG ORAL DAILY Discontinued Reason: Therapy completed Ibuprofen* (Motrin*), 600 MG ORAL THREE TIMES A DAY Discontinued Reason: Therapy completed Irbesartan* (Avapro*), 150 MG ORAL DAILY Discontinued Reason: Therapy completed Lactulose (Lactulose*), 10 GM ORAL THREE TIMES A DAY Discontinued Reason: Therapy completed Pantoprazole* (Protonix*), 40 MG ORAL DAILY Discontinued Reason: Therapy completed Pantoprazole* (Protonix*), 40 MG ORAL DAILY, (Reported) Discontinued Reason: Therapy completed Rifaximin* (Xifaxan*), 550 MG ORAL EVERY 12 HOURS Discontinued Reason: Therapy completed Unable to Obtain Medications (Unable To Obtain Meds), (Reported) Discontinued Reason: Therapy completed Vancomycin/Water For Inj (Vancomycin 1.5 Gram/300 ml Bag), 1.25 GM IV, (Reported ) Discontinued Reason: Therapy completed [misc], UNIT, (DME) Discontinued Reason: Therapy completed Patient History Healthcare decision maker Resuscitation status Full Code Advanced Directive on File Past Medical/Surgical History Past Medical/Surgical History: (1) Liver cirrhosis (2) Peripheral neuropathy (3) Cellulitis (4) Hepatitis C (5) Anemia (6) Acute renal failure (7) Fracture of distal end of left tibia Social History Social History: (1) Drug abuse Review of Systems All Other Systems: negative except mentioned in HPI Physical Exam General Appearance: no apparent distress, confused HEENT: normocephalic Neck: non-tender, supple Respiratory/Chest: decreased breath sounds Abdomen: non tender, soft Extremities: other - left LE in cast, right LE bandages applied Neurologic: alert, responsive Last 24 Hour Vital Signs Date Time Temp Pulse Resp B/P (MAP) Pulse Ox O2 Delivery O2 Flow Rate FiO2 08/17/19 08:00 98.2 89 18 143/97 (112) 96 08/17/19 04:00 98.2 99 18 147/85 (105) 97 08/17/19 04:00 102 08/17/19 02:00 Room Air 08/17/19 00:39 98.2 118 20 120/80 (93) 93 08/17/19 00:00 119 08/16/19 23:48 98.7 129 20 138/85 95 Room Air 08/16/19 22:32 101.5 125 22 135/82 100 08/16/19 21:20 101.0 08/16/19 20:25 100.9 08/16/19 20:00 100.9 20 180/97 97 Room Air 08/16/19 18:44 98.4 120 17 187/96 (126) 97 Room Air Intake and Output 08/16/19 08/17/19 19:00 07:00 Intake Total 3375 ml Balance 3375 ml Intake Oral 0 ml IV Total 3375 ml # Voids 1 # Bowel Movements 1 Laboratory Tests Test 08/16/19 20:17 08/16/19 21:02 08/17/19 03:52 White Blood Count 8.1 K/UL (4.8-10.8) 11.0 K/UL (4.8-10.8) H Red Blood Count 4.34 M/UL (4.70-6.10) L 3.66 M/UL (4.70-6.10) L Hemoglobin 14.8 G/DL (14.2-18.0) 12.1 G/DL (14.2-18.0) L Hematocrit 40.7 % (42.0-52.0) L 35.4 % (42.0-52.0) L Mean Corpuscular Volume 94 FL (80-99) 97 FL (80-99) Mean Corpuscular Hemoglobin 34.0 PG (27.0-31.0) H 33.1 PG (27.0-31.0) H Mean Corpuscular Hemoglobin Concent 36.3 G/DL (32.0-36.0) H 34.2 G/DL (32.0-36.0) Red Cell Distribution Width 11.1 % (11.6-14.8) L 12.2 % (11.6-14.8) Platelet Count 115 K/UL (150-450) L 118 K/UL (150-450) L Mean Platelet Volume 7.7 FL (6.5-10.1) 9.4 FL (6.5-10.1) Neutrophils (%) (Auto) 62.6 % (45.0-75.0) 73.2 % (45.0-75.0) Lymphocytes (%) (Auto) 20.4 % (20.0-45.0) 16.0 % (20.0-45.0) L Monocytes (%) (Auto) 10.9 % (1.0-10.0) H 8.3 % (1.0-10.0) Eosinophils (%) (Auto) 3.2 % (0.0-3.0) H 0.9 % (0.0-3.0) Basophils (%) (Auto) 2.9 % (0.0-2.0) H 1.5 % (0.0-2.0) Sodium Level 134 MMOL/L (136-145) L 136 MMOL/L (136-145) Potassium Level 4.2 MMOL/L (3.5-5.1) 4.0 MMOL/L (3.5-5.1) Chloride Level 99 MMOL/L (98-107) 103 MMOL/L (98-107) Carbon Dioxide Level 29 MMOL/L (21-32) 27 MMOL/L (21-32) Anion Gap 6 mmol/L (5-15) 6 mmol/L (5-15) Blood Urea Nitrogen 17 mg/dL (7-18) 18 mg/dL (7-18) Creatinine 1.4 MG/DL (0.55-1.30) H 1.3 MG/DL (0.55-1.30) Estimat Glomerular Filtration Rate > 60 mL/min (>60) > 60 mL/min (>60) Glucose Level 126 MG/DL (74-106) H 133 MG/DL (74-106) H Lactic Acid Level 1.80 mmol/L (0.4-2.0) Calcium Level 8.6 MG/DL (8.5-10.1) 8.0 MG/DL (8.5-10.1) L Total Bilirubin 1.6 MG/DL (0.2-1.0) H 1.8 MG/DL (0.2-1.0) H Direct Bilirubin 0.9 MG/DL (0.0-0.3) H 1.1 MG/DL (0.0-0.3) H Aspartate Amino Transf (AST/SGOT) 108 U/L (15-37) H 107 U/L (15-37) H Alanine Aminotransferase (ALT/SGPT) 64 U/L (12-78) 51 U/L (12-78) Alkaline Phosphatase 78 U/L (46-116) 64 U/L (46-116) Ammonia 95 umol/L (11-32) H 47 umol/L (11-32) H Total Creatine Kinase 562 U/L (26-308) H Troponin I 0.062 ng/mL (0.000-0.056) Total Protein 8.8 G/DL (6.4-8.2) H 7.5 G/DL (6.4-8.2) Albumin 2.6 G/DL (3.4-5.0) L 2.2 G/DL (3.4-5.0) L Globulin 6.2 g/dL 5.3 g/dL Albumin/Globulin Ratio 0.4 (1.0-2.7) L 0.4 (1.0-2.7) L Acetaminophen Level < 2 MCG/ML (10-30) L Serum Alcohol < 3 mg/dL Height (Feet): 6 Height (Inches): 1.00 Weight (Pounds): 228 Medications Current Medications Medications (Trade) Dose Ordered Sig/Sharla Route PRN Reason Start Time Stop Time Status Last Admin Dose Admin Morphine Sulfate (Morphine Sulfate) 2 mg Q4H PRN IVP For Pain 08/17/19 01:30 08/24/19 01:29 Assessment/Plan Assessment/Plan: (1) B/L LE pain (2) Left tibia fracture (3) Right non healing ulcer (4) Peripheral Neuropathy Patient will be continued on Morphine. Will start patient Lorena 5/325mg Q4H PRN and Neurontin 100mg TID D/w Dr. Romano and he concurred. Giuliano Liu Aug 17, 2019 08:58
[2019-08-17] MEDS ORDERED: HYDROcodone/Acetamin 5/325 tab ORAL PRN ×2 (09:15→14:26)
--- NOTE | 2019-08-17 10:41 | Diagnostic Imaging Report ---
Indication: Dyspnea Comparison: 04/14/2017 A single view chest radiograph was obtained. Findings: Cardiomediastinal appearance is within normal limits for age. The lungs are clear. Pulmonary vascularity is appropriate. The diaphragmatic contour is smooth and costophrenic angles are sharp. No pleural effusions are identified. The bones are unremarkable. Impression: No acute findings
[2019-08-17] MEDS: Lactulose 20gm/30ml UDC ORAL SCH ×3 (11:00→17:34)
--- NOTE | 2019-08-17 11:13 | Diagnostic Imaging Report ---
Indication: Altered mental status Technique: Contiguous 5 mm thick transaxial imaging of the head obtained in a Siemens Sensation [address] scanner. Soft tissue and bone windows generated. Automatic Exposure Control was utilized. Total Dose length Product (DLP): 1583.[address] Dose Index Volume (CTDIvol): 62.7 mGy Comparison: 03/01/2018 Findings: There is a 17 x 6 x 8 mm hyperdense hematoma within the left thalamus extending into the morales radiata consistent with a acute to subacute hematoma. There is little to no edema surrounding the hematoma, which suggests this may be older. The hematoma was not seen on the previous occasion dated 02/21/2018. Please correlate clinically with regard to the onset of the hematoma. There is no mass effect identified or midline shift. There is mild prominence of the ventricles, basal cisterns, and cerebral sulci consistent with atrophy. Mild, nonspecific, white matter hypoattenuation is noted throughout the brain consistent with chronic small vessel disease. There is opacification of the left frontal sinus and part of the anterior ethmoid sinus on the left side. IMPRESSION: 17 x 6 x 8 mm acute to subacute hematoma in the left upper thalamus/morales radiata. Little to no edema or mass effect associated with this. Mild atrophy of the brain. Nonspecific white matter hypoattenuation probably due to chronic small vessel disease. Sinusitis The CT scanner at [facility] is accredited by the [employer] and the scans are performed using dose optimization techniques as appropriate to a performed exam including Automatic Exposure control.
[2019-08-17 13:46] LABS: APPEARANCE,URINE CLEAR; BILIRUBIN, URINE NEGATIVE (NEGATIVE); GLUCOSE, URINE (UA) 1+ (NEGATIVE); KETONES,URINE 1+ (NEGATIVE); LEUKOCYTE ESTERASE ,URINE 2+ (NEGATIVE); NITRITE,URINE NEGATIVE (NEGATIVE); PH,URINE 5 (4.5-8.0); PROTEIN,URINE 2+ (NEGATIVE); UROBILINOGEN,URINE 4 MG/DL (0.0-1.0)
[2019-08-17 13:47] LABS: COLOR,URINE YELLOW
[2019-08-17] MEDS ORDERED: HydrALAZINE 50mg tab ORAL SCH ×3 (14:00→22:00)
[2019-08-17] MEDS: D5NS 1,000 ML IV SCH (14:34)
--- NOTE | 2019-08-17 14:36 | Consultation ---
Consult Note Consult Note Chief Complaint: Lower Extremity Injury 63-year-old male presents ED for evaluation. Brought in by EMS from Street. Complaining of leg pain. Patient has left leg in a cast. Right leg has dressings on it. History of osteomyelitis in the past. Patient is providing limited history at this time. Moaning in pain. 10 out of 10, dull, nonradiating. Tachycardic. Denies chest pain or shortness of breath. No other aggravating relieving factors. 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 Little to no edema or mass effect associated with this. Mild atrophy of the brain. Nonspecific white matter hypoattenuation probably due to chronic small vessel disease. Sinusitis Geoffrey Manzano MD Aug 17, 2019 14:36
[2019-08-17] MEDS ORDERED: Vancomycin 1gm/D5W 275ml IVPB SCH ×2 (15:00)
[2019-08-17] MEDS: Vancomycin 1 GM in D5W 275 ML IVPB SCH (15:53)
--- NOTE | 2019-08-17 16:05 | Diagnostic Imaging Report ---
Indication: Left leg pain Comparison: None Findings: Two views of the left tibia and fibula were obtained. No acute fracture, malalignment, or periosteal reaction are identified. Soft tissues are unremarkable. The AP or frontal projection is limited by the presence of a posterior splint. Impression: No obvious acute injury.
[2019-08-17] MEDS: Thiamine HCl 100 MG in D5W 55 ML IVPB SCH (17:33)
--- NOTE | 2019-08-17 17:45 | History and Physical Report ---
DATE OF ADMISSION: 08/16/2019 HISTORY OF PRESENT ILLNESS: The patient is a poor historian and he is just basically lethargic and moans and groans. He is not responding to any of my questions, so I cannot get any history from the patient. The patient is admitted for cellulitis on the right lower extremity, rule out osteomyelitis, and also has elevated LFT and ammonia level as well for hepatic encephalopathy. Also, he had some tachycardia, fever, and also has a fracture of distal tibia-fibula of left leg and has a soft cast on it. It has been ____. The fracture apparently is not acute. The patient came in with it and has a long splint on it. The patient also has hepatic encephalopathy. Again, he is lethargic and I cannot get any history from the patient. PAST MEDICAL HISTORY: Hypertension, hepatic encephalopathy, cirrhosis, and also a fracture of the left lower extremity. I cannot get any history from him. ALLERGIES: To penicillin. MEDICATIONS: Currently, the patient is on hydralazine and metoprolol. SOCIAL HISTORY: Unable to obtain. FAMILY HISTORY: Unable to obtain. REVIEW OF SYSTEMS: Unable to obtain. PHYSICAL EXAMINATION: GENERAL: The patient is lethargic, but does groan and moan and does respond to noxious stimuli. VITAL SIGNS: Temperature is 101.5, pulse is 125, and blood pressure is 135/82. HEENT: PERRLA. NECK: Supple. CHEST: Clear to auscultation. CARDIOVASCULAR: Regular rate and rhythm. No murmurs. ABDOMEN: Soft. Positive bowel sounds. Does have ecchymosis in the suprapubic area. EXTREMITIES: In the lower extremity, the patient had scabbed venous stasis and has right lower extremity warm to touch and also has a soft splint on the left lower extremity. Again, dorsal pedal pulses are palpable. NEUROLOGIC: The patient is lethargic, but does respond to noxious stimuli. The patient cannot be obtained neurological exam. LABORATORY DATA: WBC of 8.1, hemoglobin of 14.8, and platelets of 115,000. Sodium 134, potassium 4.2, BUN of 17, creatinine 1.4, and glucose of 126. AST of 108 and ALT of 64. Ammonia of 95. Troponin 0.062. Total bilirubin 1.6. ASSESSMENT AND PLAN: Elevated LFTs, hepatic encephalopathy, cirrhosis of the liver, history of cellulitis of the right lower extremity, and fever, rule out sepsis. The patient has elevated ammonia as well. Recent fractures. I have consulted Dr. Romano for pain management, Dr. Chatterjee, Dr. Edis Irving, , Dr. Manzano, and Dr. Jose Armando Wayne for the management of the above-mentioned admission abnormalities as well. We need to find out the etiology of elevated LFTs as well and rule out sepsis as well. The patient had fever initially. Antibiotics per Dr. Edis Irving. Esthela Arauz M.D. DR: ANNIE JOB#: [id number] CC:
[2019-08-17] MEDS ORDERED: Lactulose 20gm/30ml UDC ORAL SCH (18:00)
[2019-08-17] MEDS ORDERED: Metoprolol 25mg tab ORAL SCH (21:00)
[2019-08-17] MEDS: Pantoprazole Inj IVP SCH (21:17)
[2019-08-17] MEDS: Metoprolol 25mg tab ORAL SCH (21:22)
--- NOTE | 2019-08-17 22:15 | Consultation ---
DATE OF CONSULTATION: 08/17/2019 CONSULTING PHYSICIAN: Flaco Amato M.D. REQUESTING PHYSICIAN: Esthela Arauz M.D. CHIEF COMPLAINT: The patient is a 63-year-old gentleman who was brought into the emergency room with issues of cellulitis and possible sepsis. The patient was placed on a posterior splint on the left leg, had concerns about possible cellulitis. Orthopedic consultation obtained for further care and recommendation. The patient is a poor historian. There is only limited past medical history. It is unclear exactly how long he has been diagnosed with a fracture and who initially saw the patient. PHYSICAL EXAMINATION: GENERAL: The patient was seen in the ICU. VITAL SIGNS: Afebrile. Stable vital signs. EXTREMITIES: Lower extremity shows chronic venous stasis with significant skin deterioration. There are ulcers in the right leg. Left ankle is in a posterior splint. LABORATORY AND DIAGNOSTIC DATA: Imaging studies, two-views left ankle show significant osteopenia, it is difficult to assess, but patient may have a distal lateral malleolus fracture. ASSESSMENT: 1. Left minimally displaced ankle fracture. 2. Right leg venous stasis ulcer, possible osteomyelitis. DISCUSSION: At this point, with regard to orthopedic issues, what I recommend is to consider changing the splint into some type of preformed splint that more pressure on his left leg. In terms of the right leg, we recommend appropriate wound consult evaluation and possible evaluation by general surgery, vascular or plastic surgery to see if there is any debridement that needs to be performed. Treating chronic osteomyelitis is outside of my field of expertise. 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 In terms of the cellulitis, he has chronic venous stasis ulcers and currently is on antibiotics. At this point, he does not have any evidence of acute compartmental syndrome. What I recommend is continued IV antibiotics, continued medical management, and appropriate transfer to long-term treatment regarding his chronic osteomyelitis. Flaco Amato M.D. DR: Lloyd JOB#: [id number] CC: MEDARDO
[2019-08-17] MEDS: HydrALAZINE 50mg tab ORAL SCH (22:24)
--- NOTE | 2019-08-17 23:31 | Consultation ---
DATE OF CONSULTATION: 08/17/2019 NEUROLOGIC CONSULTATION CONSULTING PHYSICIAN: Gary Serrano M.D. HISTORY OF PRESENT ILLNESS: This 63-year-old male was brought in by emergency services from [facility] complaining of leg pain. He had a left leg cast on. His right leg has dressings on it. He had a residual osteomyelitis in the past. The patient had a previous history of hypertension, diabetes, peripheral neuropathy, and head trauma, and with apparently slurring speech and cannot provide any kind of history. The patient's laboratory data revealed sodium of 134, creatinine of 1.4. His liver functions are mildly elevated with an ammonia level of 95 and CPK level of 562. His total protein was 8.8 with a low albumin. Blood sugar is slightly elevated. His toxicology screen was positive for urine cocaine and opiates. His head CT and chest x-ray revealed no acute changes. Head CT scan done today revealed a 17 x 6 x 8 mm hyperdense hematoma within the left thalamus extending into the morales radiata consistent with an acute to subacute hematoma. There is little to no edema surrounding the hematoma. The hematoma was not seen on a previous CT dated 02/21/2018. There is no mass effect. He also had mild atrophy of the brain. The tibia-fibula x-ray today is unremarkable. The patient's urinalysis was slightly abnormal with only 2 to 4 red blood cells seen and few bacteria. The protein was +2 in urine, ketones were +1. The patient was started on haloperidol yesterday 1 dose 5 mg was given IM. He is also on gabapentin 300 mg a day, hydralazine. Lactulose was given 1 dose of 30 mg. He is started on lorazepam given 1 mg yesterday. He is also on Protonix, thiamine 100 mg, and vancomycin. Hydrocodone was prescribed not given. He is also on metoprolol. I was asked to see the patient in neurologic consultation. PAST MEDICAL HISTORY/PAST MEDICAL ILLNESSES: 1. Hypertension. 2. Diabetes mellitus. 3. Cellulitis of the right foot with associated edema. 4. Chronic osteomyelitis of the first and second distal phalanges. 5. Hyperlipidemia. 6. Possible chronic kidney disease. 7. Cirrhosis of the liver with previous alcohol abuse and opioid dependence. The patient has been admitted here on 05/15/2019 and discharged on 05/26/2019 for lower extremity pain and swelling. He has been discharged to halfway facility. There is no family history of neurologic disease available. ALLERGIES: No known allergies. SURGICAL HISTORY: Unavailable. FAMILY HISTORY: Unavailable. REVIEW OF SYSTEMS: Except the above is unavailable. PHYSICAL EXAMINATION: GENERAL: He is well developed, somewhat obese man, lying in bed with a bandage in his right lower leg and a cast on both lower legs. He is lethargic to stupuorous. VITAL SIGNS: His blood pressure is 156/86, temperature is 98.6 degrees, pulse is 86 and regular. HEENT: Reveals that he is edentulous. NECK: Stiff, mainly anterior posteriorly. Carotids are +2. No bruits. There was no tenderness. LUNGS: Clear. CARDIOVASCULAR: PMI could not be felt. JVP was not well visualized. The patient's heart tones were distant. There was no obvious murmurs, rubs, or clicks noted. ABDOMEN: Obese. Bowel sounds intact. There is no tenderness elicited or organomegaly. BACK: Could not be tested. EXTREMITIES: See above. NEUROLOGIC: MENTAL STATUS: He was lethargic to stupuorous and goes off when stimulated usually by pain occasionally by voice. Date, he thought it was June 2013, 2013, or 2014. Place, he does know where he was. Person, he is oriented person. Function, spoken speech was dysarthria. There was no obvious paraphasias. He could not spell world forwards. He could do occasionally one-step commands. He could add 2+ 2 and get 4, but could not add 8 + 5. CRANIAL NERVE EXAMINATION: CRANIAL NERVE II: Visual hayes are probably intact to confrontation. Fundi were not visualized. CRANIAL NERVES III, IV, AND : The eyes are in the midline. Horizontal movements were mostly intact. The pupils are approximately 5 mm, round, light reactive. CRANIAL NERVE V: Corneal sensation appeared to be intact to fine touch. CRANIAL NERVE VII: There is decreased right nasolabial fold and smile. CRANIAL NERVE VIII: Auditory acuity was intact to a moderate voice. CRANIAL NERVES IX AND X: Gag was intact bilaterally. CRANIAL NERVE XI: Sternocleidomastoid strength was 5/5. CRANIAL NERVE XII: Tongue protrudes partially in the midline. MUSCLE EXAMINATION: His muscle tone was decreased in the upper extremities. Muscle strength was probably 4+/5 in the left upper extremity. He had weakness of the right upper extremity, probably about 4/5. The lower extremities, he really could not move his legs and complained of pain. Reflexes were trace to +1 in the upper extremities, 0 at the knees, ankles could not be tested. Babinski signs in the leg could not be done. Sandra testing on the left is negative. SENSORY EXAMINATION: Sensation was probably decreased in lower extremities, partially intact apparently in the upper extremities. 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 He has a new left thalamic hematoma, most likely secondary to his hypertensive vascular disease. Interesting enough, he is really lethargic, which perhaps could be related to drugs since there is no shift or structures on the CT scan as well as thalamic infarction obviously may be contributing to that somewhat. He does have some type of cellulitis. This could also be secondary to his mental status. As far as treatment is concerned, his head of the bed should be elevated to 30 degrees. His blood pressure needs to be controlled. His systolic blood pressure should be around 140, at least initially. It should only be treated if his blood pressure goes above 220. The steroids are not indicated. At this time, he does not need intravenous fluids or hypertonic saline. However, his serum sodium should be around 140 or 145 range. At this point, we should use normal saline. The patient should also probably have DVT prophylaxis. PLAN: 1. The head of the bed elevated at 30 degrees. 2. No steroids. 3. Manage blood pressure. Keep systolic blood pressure about 140. 4. sodium between 140-145. 5. DVT prophylaxis. 6. No seizure medicines at this time. 7. No surgical evaluation is necessary at this time. 8. Treat the patient's hyperammonemia. 9. Keep Ativan and other benzodiazepines at minimum. Thank you for this interesting case. Gary Serrano MD DR: ESTER JOB#: [id number] CC: MEDARDO
[2019-08-18] VITALS (19 sets, daily range): BP systolic 137–159; BP diastolic 61–92
[2019-08-18] MEDS: Vancomycin 1 GM in D5W 275 ML IVPB SCH ×2 (03:03→14:22)
--- NOTE | 2019-08-18 03:15 | Consultation ---
DATE OF CONSULTATION: 08/17/2019 INFECTIOUS DISEASES CONSULTATION CONSULTING PHYSICIAN: Edis Irving M.D. PRIMARY ATTENDING PHYSICIAN: Esthela Arauz M.D. REASON FOR CONSULTATION: Leg cellulitis. HISTORY OF PRESENT ILLNESS: The patient is a 63-year-old male admitted yesterday from home complaining of pain in the legs. The patient had a fever of 101 at the time of admission and pulse rate of 120. The patient had a history of recent fall and he had a visit to [facility] emergency room on 08/12/2019. At that time, he slipped out of the wheelchair. X-ray of the left tibia and fibula showed a lucency likely fracture or osteopenia. PAST MEDICAL HISTORY: Significant for diabetes mellitus, hypertension, cirrhosis, peripheral neuropathy, opiate dependence, history of osteomyelitis, med compliance with medications. ALLERGIES: Penicillin. MEDICATIONS: Getting metoprolol, vancomycin, hydralazine, morphine, Hallam. SOCIAL HISTORY: Lives at home. Single. He has a history of polysubstance abuse and tobacco. REVIEW OF SYSTEMS: Unobtainable, the patient is drowsy. PHYSICAL EXAMINATION: VITAL SIGNS: Temperature 99, pulse 83, blood pressure 141/62. GENERAL APPEARANCE: Seems to be well developed. HEENT: Head and neck, pink conjunctiva. HEART: Normal rate. LUNGS: Clear. ABDOMEN: Soft and nontender. EXTREMITIES: Edema of both legs. Dressing in the left lower leg and ankle, has weeping, superficial skin lesion in the right leg. LABORATORY AND DIAGNOSTIC DATA: WBC 11, hemoglobin 12.1, hematocrit 35.4, platelets 118. Sodium 136, potassium 4.4, chloride 103, bicarb 27, BUN 18, creatinine 1.3, glucose 133, bilirubin 1.8. Ammonia is 95. CK is 562, troponin 0.062, modestly elevated. Albumin 2.2. AST is 107, ALT is 51. Head CT showed subacute or post acute hematoma in the left upper thalamus and coronary radiata, mild atrophy, sinusitis. Chest x-ray was negative. IMPRESSION: 1. Sepsis with fever and tachycardia. 2. Bilateral leg cellulitis. 3. Status post fracture in the left distal tibia. 4. Intracranial bleeding & hematoma. 5. Liver cirrhosis. 6. Diabetes mellitus with peripheral neuropathy. 7. Hypertension. RECOMMENDATION: Continue with IV vancomycin. We will follow up the culture. We will order another left tibia and fibular x-ray. At the end of my examination, I thank Dr. Arauz for involving me in the care of this patient. Edis Irving M.D. DR: Zahra JOB#: [id number] CC: MEDARDO
[2019-08-18] MEDS: D5NS 1,000 ML IV SCH (04:50)
[2019-08-18] MEDS ORDERED: Lidocaine 1% Plain 30 ml INJ PRN (05:15)
[2019-08-18] MEDS ORDERED: Heparin1,000 units/500ml Premix(Conc:2 units/ml) IV PRN (05:15)
[2019-08-18 05:52] LABS: EOSINOPHILS % (AUTO) 1.3 % (0.0-3.0); HEMATOCRIT 31.8 % (42.0-52.0); HEMOGLOBIN 10.9 G/DL (14.2-18.0); LYMPHOCYTES % (AUTO) 22.5 % (20.0-45.0); MEAN CORPUSCULAR VOLUME 96 FL (80-99); MONOCYTES % (AUTO) 10.2 % (1.0-10.0); PLATELET COUNT 125 K/UL (150-450); RED BLOOD COUNT 3.31 M/UL (4.70-6.10); RED CELL DISTRIBUTION WIDTH 11.8 % (11.6-14.8); WHITE BLOOD COUNT 6.4 K/UL (4.8-10.8)
[2019-08-18] MEDS: HydrALAZINE 50mg tab ORAL SCH ×2 (05:56→22:29)
[2019-08-18] MEDS: Lactulose 20gm/30ml UDC ORAL SCH ×2 (05:58)
[2019-08-18 06:14] LABS: % IRON SATURATION 25 % (15-50); IRON 50 ug/dL (50-175); TOTAL IRON BINDING CAPACITY 203 ug/dL (250-450)
[2019-08-18 06:19] LABS: AMMONIA 19 umol/L (11-32)
[2019-08-18 06:27] LABS: ALANINE AMINOTRANSFERASE 46 U/L (12-78); ALBUMIN 1.9 G/DL (3.4-5.0); ALBUMIN/GLOBULIN RATIO 0.4 (1.0-2.7); ALKALINE PHOSPHATASE 57 U/L (46-116); ANION GAP 6 mmol/L (5-15); ASPARTATE AMINO TRANSFERASE 111 U/L (15-37); BILIRUBIN,TOTAL 1.6 MG/DL (0.2-1.0); BLOOD UREA NITROGEN 12 mg/dL (7-18); CALCIUM 7.8 MG/DL (8.5-10.1); CARBON DIOXIDE 26 MMOL/L (21-32); CHLORIDE 104 MMOL/L (98-107); CHOLESTEROL 84 MG/DL (< 200); CREATININE 1.3 MG/DL (0.55-1.30); HDL CHOLESTEROL 21 MG/DL (40-60); PHOSPHORUS 2.1 MG/DL (2.5-4.9); POTASSIUM 3.3 MMOL/L (3.5-5.1); SODIUM 136 MMOL/L (136-145); TRIGLYCERIDES 64 MG/DL (30-150)
[2019-08-18 06:30] LABS: FERRITIN 341 NG/ML (8-388)
[2019-08-18 06:55] LABS: BILIRUBIN,DIRECT 0.9 MG/DL (0.0-0.3)
[2019-08-18] MEDS: Metoprolol 25mg tab ORAL SCH ×2 (08:36→21:35)
[2019-08-18] MEDS: Pantoprazole Inj IVP SCH (08:36)
[2019-08-18] MEDS ORDERED: Nitroglycerin Patch 0.4mg TDERMAL SCH (09:00)
--- NOTE | 2019-08-18 09:59 | Nephrology Progress Note ---
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 He has a new left thalamic hematoma, most likely secondary to his hypertensive vascular disease. Neuro: Plan NPO until fully awake Hold mind altering meds hydrate neuro eval antibiotics per consultants / Neuro Nitro Head CT: 17 x 6 x 8 mm acute to subacute hematoma in the left upper thalamus/morales radiata. Little to no edema or mass effect associated with this. Mild atrophy of the brain. Nonspecific white matter hypoattenuation probably due to chronic small vessel disease. Sinusitis Subjective ROS Limited/Unobtainable: No Constitutional: Reports: malaise Objective Objective Last 24 Hour Vital Signs Date Time Temp Pulse Resp B/P (MAP) Pulse Ox O2 Delivery O2 Flow Rate FiO2 08/18/19 09:00 83 25 152/74 (100) 99 08/18/19 08:36 89 157/74 08/18/19 08:15 Nasal Cannula 2.0 08/18/19 08:00 98.9 87 26 157/74 (101) 99 08/18/19 08:00 87 08/18/19 07:00 86 17 152/83 (106) 98 08/18/19 06:00 88 25 149/86 (107) 99 08/18/19 05:56 137/65 08/18/19 05:00 84 12 137/65 (89) 97 08/18/19 04:00 97 08/18/19 04:00 Nasal Cannula 2.0 08/18/19 04:00 100.0 88 23 144/65 (91) 98 08/18/19 03:00 92 17 142/70 (94) 97 08/18/19 02:00 99 20 142/67 (92) 98 08/18/19 01:00 91 26 139/61 (87) 97 08/18/19 00:00 90 08/18/19 00:00 Nasal Cannula 2.0 08/18/19 00:00 99.3 93 23 139/69 (92) 98 08/17/19 23:00 94 17 140/56 (84) 99 08/17/19 22:24 159/85 08/17/19 22:00 94 23 159/85 (109) 99 08/17/19 21:22 88 161/81 08/17/19 21:00 90 25 161/81 (107) 99 90 08/17/19 20:00 Nasal Cannula 2.0 08/17/19 20:00 87 08/17/19 20:00 98.0 87 21 166/80 (108) 99 87 08/17/19 19:00 98 22 159/75 (103) 99 08/17/19 18:00 86 22 160/80 (106) 99 08/17/19 17:00 98.6 86 22 156/86 (109) 99 08/17/19 16:12 Nasal Cannula 2.0 08/17/19 16:00 93 22 176/95 (122) 99 08/17/19 16:00 89 08/17/19 15:00 96 27 181/113 (135) 99 08/17/19 14:52 96 27 158/95 (116) 99 08/17/19 14:19 99.4 87 25 153/89 (110) 98 08/17/19 12:00 89 08/17/19 12:00 99.0 83 18 141/62 (88) 99 Intake and Output 08/17/19 08/18/19 19:00 07:00 Intake Total 75 ml 1235.000 ml Output Total 630 ml 1120 ml Balance -555 ml 115.000 ml Intake Oral 60 ml IV Total 75 ml 1175.000 ml Output Urine Total 630 ml 1120 ml # Bowel Movements 2 2 Laboratory Tests 08/17/19 13:05: Urine Color Yellow, Urine Appearance Clear, Urine pH 5, Urine Specific [place] 1.020, Urine Protein 2+H, Urine Glucose (UA) 1+H, Urine Ketones 1+H, Urine Blood 3+H, Urine Nitrite Negative, Urine Bilirubin Negative, Urine Urobilinogen 4H, Urine Leukocyte Esterase 2+H, Urine RBC 5-10H, Urine WBC 2-4, Urine Squamous Epithelial Cells Occasional, Urine Bacteria Few, Urine Opiates Screen PositiveH, Urine Barbiturates Screen Negative, Phencyclidine (PCP) Screen Negative, Urine Amphetamines Screen Negative, Urine Benzodiazepines Screen Negative, Urine Cocaine Screen PositiveH, Urine Marijuana (THC) Screen Negative 08/18/19 04:40: White Blood Count 6.4, Red Blood Count 3.31L, Hemoglobin 10.9L, Hematocrit 31.8L , Mean Corpuscular Volume 96, Mean Corpuscular Hemoglobin 33.0H, Mean Corpuscular Hemoglobin Concent 34.4, Red Cell Distribution Width 11.8, Platelet Count 125L, Mean Platelet Volume 8.6, Neutrophils (%) (Auto) 65.0, Lymphocytes ( %) (Auto) 22.5, Monocytes (%) (Auto) 10.2H, Eosinophils (%) (Auto) 1.3, Basophils (%) (Auto) 1.0, Sodium Level 136, Potassium Level 3.3L, Chloride Level 104, Carbon Dioxide Level 26, Anion Gap 6, Blood Urea Nitrogen 12, Creatinine 1.3, Estimat Glomerular Filtration Rate > 60, Glucose Level 181H, Hemoglobin A1c 6.5H, Uric Acid 5.5, Calcium Level 7.8L, Phosphorus Level 2.1L, Magnesium Level 1.4L, Iron Level 50, Total Iron Binding Capacity 203L, Percent Iron Saturation 25, Unsaturated Iron Binding 153, Ferritin 341, Total Bilirubin 1.6H, Direct Bilirubin 0.9H, Aspartate Amino Transf (AST/SGOT) 111H, Alanine Aminotransferase (ALT/SGPT) 46, Alkaline Phosphatase 57, Ammonia 19, Troponin I 0.061H, C-Reactive Protein, Quantitative 2.4H, Pro-B-Type Natriuretic Peptide 1036H, Total Protein 6.8, Albumin 1.9L, Globulin 4.9, Albumin/Globulin Ratio 0.4L, Triglycerides Level 64, Cholesterol Level 84, LDL Cholesterol 51, HDL Cholesterol 21L, Cholesterol/HDL Ratio 4.0, Vitamin B12 Level 480, Folate 16.2, Thyroid Stimulating Hormone (TSH) 0.573, Hepatitis A IgM Antibody [Pending], Hepatitis B Surface Antigen [Pending], Hepatitis B Core IgM Antibody [Pending], Hepatitis C Antibody [Pending] Height (Feet): 6 Height (Inches): 1.00 Weight (Pounds): 220 General Appearance: no apparent distress Cardiovascular: normal rate Respiratory/Chest: decreased breath sounds Abdomen: distended Extremities: other - cellulitis LEs Neurologic: other - moves all exts Fouladian,Geoffrey MD Aug 18, 2019 09:59
--- NOTE | 2019-08-18 10:11 | Infectious Diseases Prog Note ---
Assessment/Plan Assessment/Plan IMPRESSION: 1. Sepsis with fever and tachycardia. 2. Bilateral leg cellulitis. 3. penicillin allergy 4. Intracranial bleeding & hematoma. 5. Liver cirrhosis. 6. Diabetes mellitus with peripheral neuropathy. 7. Hypertension. RECOMMENDATION: Continue with IV vancomycin. We will follow up the cultures. left tibia and fibular x-ray: negative Subjective ROS Limited/Unobtainable: No Constitutional: Reports: fever, other - Qqdh=330 HEENT: Reports: no symptoms Respiratory: Reports: no symptoms Gastrointestinal/Abdominal: Reports: no symptoms Neurologic: Reports: other - more awake & resposive Musculoskeletal: Reports: no symptoms Allergies: Coded Allergies: PENICILLINS (Verified Allergy, Unknown, 02/10/17) Uncoded Allergies: PENICILLIN (Allergy, Unknown, 05/15/19) Objective Vital Signs Last 24 Hour Vital Signs Date Time Temp Pulse Resp B/P (MAP) Pulse Ox O2 Delivery O2 Flow Rate FiO2 08/18/19 09:00 83 25 152/74 (100) 99 08/18/19 08:36 89 157/74 08/18/19 08:15 Nasal Cannula 2.0 08/18/19 08:00 98.9 87 26 157/74 (101) 99 08/18/19 08:00 87 08/18/19 07:00 86 17 152/83 (106) 98 08/18/19 06:00 88 25 149/86 (107) 99 08/18/19 05:56 137/65 08/18/19 05:00 84 12 137/65 (89) 97 08/18/19 04:00 97 08/18/19 04:00 Nasal Cannula 2.0 08/18/19 04:00 100.0 88 23 144/65 (91) 98 08/18/19 03:00 92 17 142/70 (94) 97 08/18/19 02:00 99 20 142/67 (92) 98 08/18/19 01:00 91 26 139/61 (87) 97 08/18/19 00:00 90 08/18/19 00:00 Nasal Cannula 2.0 08/18/19 00:00 99.3 93 23 139/69 (92) 98 08/17/19 23:00 94 17 140/56 (84) 99 08/17/19 22:24 159/85 08/17/19 22:00 94 23 159/85 (109) 99 08/17/19 21:22 88 161/81 08/17/19 21:00 90 25 161/81 (107) 99 90 08/17/19 20:00 Nasal Cannula 2.0 08/17/19 20:00 87 08/17/19 20:00 98.0 87 21 166/80 (108) 99 87 08/17/19 19:00 98 22 159/75 (103) 99 08/17/19 18:00 86 22 160/80 (106) 99 08/17/19 17:00 98.6 86 22 156/86 (109) 99 08/17/19 16:12 Nasal Cannula 2.0 08/17/19 16:00 93 22 176/95 (122) 99 08/17/19 16:00 89 08/17/19 15:00 96 27 181/113 (135) 99 08/17/19 14:52 96 27 158/95 (116) 99 08/17/19 14:19 99.4 87 25 153/89 (110) 98 08/17/19 12:00 89 08/17/19 12:00 99.0 83 18 141/62 (88) 99 Height (Feet): 6 Height (Inches): 1.00 Weight (Pounds): 220 General Appearance: no acute distress HEENT: mucous membranes moist Respiratory/Chest: other - coarse sounds Cardiovascular: normal rate, other - R arm PICC line Abdomen: soft, non tender Extremities: other - legs edema Skin: ulcers, other - legs Neurologic/Psychiatric: alert, responsive Microbiology Date/Time Source Procedure Growth Status 08/16/19 21:00 Blood Blood Culture - Preliminary NO GROWTH AFTER 24 HOURS Resulted 08/16/19 20:45 Blood Blood Culture - Preliminary NO GROWTH AFTER 24 HOURS Resulted 08/16/19 20:45 Leg Right Gram Stain - Final Resulted 08/16/19 20:45 Leg Right Wound Culture Pending Resulted Laboratory Tests Test 08/17/19 13:05 08/18/19 04:40 Urine Color Yellow Urine Appearance Clear Urine pH 5 (4.5-8.0) Urine Specific [place] 1.020 (1.005-1.035) Urine Protein 2+ (NEGATIVE) H Urine Glucose (UA) 1+ (NEGATIVE) H Urine Ketones 1+ (NEGATIVE) H Urine Blood 3+ (NEGATIVE) H Urine Nitrite Negative (NEGATIVE) Urine Bilirubin Negative (NEGATIVE) Urine Urobilinogen 4 MG/DL (0.0-1.0) H Urine Leukocyte Esterase 2+ (NEGATIVE) H Urine RBC 5-10 /HPF (0 - 0) H Urine WBC 2-4 /HPF (0 - 0) Urine Squamous Epithelial Cells Occasional /LPF Urine Bacteria Few /HPF (NONE) Urine Opiates Screen Positive (NEGATIVE) H Urine Barbiturates Screen Negative (NEGATIVE) Phencyclidine (PCP) Screen Negative (NEGATIVE) Urine Amphetamines Screen Negative (NEGATIVE) Urine Benzodiazepines Screen Negative (NEGATIVE) Urine Cocaine Screen Positive (NEGATIVE) H Urine Marijuana (THC) Screen Negative (NEGATIVE) White Blood Count 6.4 K/UL (4.8-10.8) Red Blood Count 3.31 M/UL (4.70-6.10) L Hemoglobin 10.9 G/DL (14.2-18.0) L Hematocrit 31.8 % (42.0-52.0) L Mean Corpuscular Volume 96 FL (80-99) Mean Corpuscular Hemoglobin 33.0 PG (27.0-31.0) H Mean Corpuscular Hemoglobin Concent 34.4 G/DL (32.0-36.0) Red Cell Distribution Width 11.8 % (11.6-14.8) Platelet Count 125 K/UL (150-450) L Mean Platelet Volume 8.6 FL (6.5-10.1) Neutrophils (%) (Auto) 65.0 % (45.0-75.0) Lymphocytes (%) (Auto) 22.5 % (20.0-45.0) Monocytes (%) (Auto) 10.2 % (1.0-10.0) H Eosinophils (%) (Auto) 1.3 % (0.0-3.0) Basophils (%) (Auto) 1.0 % (0.0-2.0) Sodium Level 136 MMOL/L (136-145) Potassium Level 3.3 MMOL/L (3.5-5.1) L Chloride Level 104 MMOL/L (98-107) Carbon Dioxide Level 26 MMOL/L (21-32) Anion Gap 6 mmol/L (5-15) Blood Urea Nitrogen 12 mg/dL (7-18) Creatinine 1.3 MG/DL (0.55-1.30) Estimat Glomerular Filtration Rate > 60 mL/min (>60) Glucose Level 181 MG/DL (74-106) H Hemoglobin A1c 6.5 % (4.3-6.0) H Uric Acid 5.5 MG/DL (2.6-7.2) Calcium Level 7.8 MG/DL (8.5-10.1) L Phosphorus Level 2.1 MG/DL (2.5-4.9) L Magnesium Level 1.4 MG/DL (1.8-2.4) L Iron Level 50 ug/dL (50-175) Total Iron Binding Capacity 203 ug/dL (250-450) L Percent Iron Saturation 25 % (15-50) Unsaturated Iron Binding 153 ug/dL (112-346) Ferritin 341 NG/ML (8-388) Total Bilirubin 1.6 MG/DL (0.2-1.0) H Direct Bilirubin 0.9 MG/DL (0.0-0.3) H Aspartate Amino Transf (AST/SGOT) 111 U/L (15-37) H Alanine Aminotransferase (ALT/SGPT) 46 U/L (12-78) Alkaline Phosphatase 57 U/L (46-116) Ammonia 19 umol/L (11-32) Troponin I 0.061 ng/mL (0.000-0.056) C-Reactive Protein, Quantitative 2.4 mg/dL (0.00-0.90) H Pro-B-Type Natriuretic Peptide 1036 pg/mL (0-125) H Total Protein 6.8 G/DL (6.4-8.2) Albumin 1.9 G/DL (3.4-5.0) L Globulin 4.9 g/dL Albumin/Globulin Ratio 0.4 (1.0-2.7) L Triglycerides Level 64 MG/DL (30-150) Cholesterol Level 84 MG/DL (< 200) LDL Cholesterol 51 mg/dL (<100) HDL Cholesterol 21 MG/DL (40-60) L Cholesterol/HDL Ratio 4.0 (3.3-4.4) Vitamin B12 Level 480 PG/ML (193-986) Folate 16.2 NG/ML (8.6-58.9) Thyroid Stimulating Hormone (TSH) 0.573 uiU/mL (0.358-3.740) Hepatitis A IgM Antibody Pending Hepatitis B Surface Antigen Pending Hepatitis B Core IgM Antibody Pending Hepatitis C Antibody Pending Current Medications Medications (Trade) Dose Ordered Sig/Sharla Route PRN Reason Start Time Stop Time Status Last Admin Dose Admin Amlodipine Besylate (Norvasc) 5 mg DAILY ORAL 08/19/19 09:00 09/17/19 08:59 UNV Chlorhexidine Gluconate (Chastity-Hex 2%) 1 applic DAILY@2000 TOPIC 08/18/19 20:00 09/17/19 19:59 Dextrose/Sodium Chloride 1,000 ml @ 50 mls/hr Q20H IV 08/18/19 14:34 09/16/19 14:33 UNV Heparin Sodium/ Sodium Chloride (Heparin 1000 units/500ml Premix) 1,000 unit ONCE PRN IV for picc line placement 08/18/19 05:15 08/20/19 05:14 Hydralazine HCl (Apresoline) 50 mg EVERY 8 HOURS ORAL 08/18/19 14:00 09/16/19 21:59 UNV Lactulose (Cephulac) 30 gm BID ORAL 08/18/19 18:00 09/16/19 10:59 UNV Lidocaine HCl (Xylocaine 1% 30ml) 30 ml ONCE PRN INJ picc line placement 08/18/19 05:15 08/20/19 05:14 Magnesium Sulfate 100 ml @ 100 mls/hr Q1H IVPB 08/18/19 09:00 08/18/19 12:59 Metoprolol Tartrate (Lopressor) 25 mg EVERY 12 HOURS ORAL 08/17/19 21:00 09/16/19 20:59 08/18/19 08:36 Morphine Sulfate (Morphine Sulfate) 2 mg Q4H PRN IVP severe pain 08/17/19 14:27 08/24/19 14:26 Nitroglycerin (Ntg) 1 patch Q24H TDERMAL 08/18/19 09:00 09/17/19 08:59 Pantoprazole (Protonix) 40 mg DAILY ORAL 08/18/19 10:00 09/17/19 09:59 UNV Potassium Phosphate 30 mm/ Sodium Chloride 285 ml @ 47.5 mls/hr ONCE ONCE IV 08/18/19 10:30 08/18/19 16:29 Thiamine HCl 100 mg/Dextrose 56 ml @ 112 mls/hr Q24H IVPB 08/17/19 16:00 09/16/19 15:59 08/17/19 17:33 Vancomycin HCl (Vanco rx to dose) 1 ea DAILY PRN MISC Per rx protocol 08/18/19 09:00 09/16/19 12:59 Vancomycin HCl 1 gm/Dextrose 275 ml @ 183.708 mls/hr Q12HR@0300,1500 IVPB 08/17/19 15:00 08/22/19 14:59 08/18/19 03:03 Edis Irving MD Aug 18, 2019 10:11
--- NOTE | 2019-08-18 10:14 | General Progress Note ---
Assessment/Plan Assessment/Plan: (1) B/L LE pain (2) Left tibia fracture (3) Right non healing ulcer (4) Peripheral Neuropathy (5) Cocaine abuse Patient will be continued on Morphine. D/w Dr. Romano and he concurred. Subjective Date patient seen: Aug 18, 2019 Time patient seen: 10:00 - am Constitutional: Reports: weakness HEENT: Reports: no symptoms Cardiovascular: Reports: no symptoms Respiratory: Reports: no symptoms Gastrointestinal/Abdominal: Reports: no symptoms Genitourinary: Reports: no symptoms Neurologic/Psychiatric: Reports: weakness Endocrine: Reports: no symptoms Hematologic/Lymphatic: Reports: no symptoms Allergies: Coded Allergies: PENICILLINS (Verified Allergy, Unknown, 02/10/17) Uncoded Allergies: PENICILLIN (Allergy, Unknown, 05/15/19) Subjective Patient was transferred to ICU due to hematoma found on Heat CT being seen by Dr. Serrano. Was seen by Dr. Amato who recommended transfer to higher level of care. At this time patient is in bed and shows no signs of pain or distress and denying pain at this time. [place] and Neurontin was stopped but was continued on Morphine, No dose of morphine was given to patient since admission. UDS found patient to be positive for cocaine. Objective Last 24 Hour Vital Signs Date Time Temp Pulse Resp B/P (MAP) Pulse Ox O2 Delivery O2 Flow Rate FiO2 08/18/19 09:00 83 25 152/74 (100) 99 08/18/19 08:36 89 157/74 08/18/19 08:15 Nasal Cannula 2.0 08/18/19 08:00 98.9 87 26 157/74 (101) 99 08/18/19 08:00 87 08/18/19 07:00 86 17 152/83 (106) 98 08/18/19 06:00 88 25 149/86 (107) 99 08/18/19 05:56 137/65 08/18/19 05:00 84 12 137/65 (89) 97 08/18/19 04:00 97 08/18/19 04:00 Nasal Cannula 2.0 08/18/19 04:00 100.0 88 23 144/65 (91) 98 08/18/19 03:00 92 17 142/70 (94) 97 08/18/19 02:00 99 20 142/67 (92) 98 08/18/19 01:00 91 26 139/61 (87) 97 08/18/19 00:00 90 08/18/19 00:00 Nasal Cannula 2.0 08/18/19 00:00 99.3 93 23 139/69 (92) 98 08/17/19 23:00 94 17 140/56 (84) 99 08/17/19 22:24 159/85 08/17/19 22:00 94 23 159/85 (109) 99 08/17/19 21:22 88 161/81 08/17/19 21:00 90 25 161/81 (107) 99 90 08/17/19 20:00 Nasal Cannula 2.0 08/17/19 20:00 87 08/17/19 20:00 98.0 87 21 166/80 (108) 99 87 08/17/19 19:00 98 22 159/75 (103) 99 08/17/19 18:00 86 22 160/80 (106) 99 08/17/19 17:00 98.6 86 22 156/86 (109) 99 08/17/19 16:12 Nasal Cannula 2.0 08/17/19 16:00 93 22 176/95 (122) 99 08/17/19 16:00 89 08/17/19 15:00 96 27 181/113 (135) 99 08/17/19 14:52 96 27 158/95 (116) 99 08/17/19 14:19 99.4 87 25 153/89 (110) 98 08/17/19 12:00 89 08/17/19 12:00 99.0 83 18 141/62 (88) 99 Intake and Output 08/17/19 08/18/19 19:00 07:00 Intake Total 75 ml 1235.000 ml Output Total 630 ml 1120 ml Balance -555 ml 115.000 ml Intake Oral 60 ml IV Total 75 ml 1175.000 ml Output Urine Total 630 ml 1120 ml # Bowel Movements 2 2 Laboratory Tests 08/17/19 13:05: Urine Color Yellow, Urine Appearance Clear, Urine pH 5, Urine Specific [place] 1.020, Urine Protein 2+H, Urine Glucose (UA) 1+H, Urine Ketones 1+H, Urine Blood 3+H, Urine Nitrite Negative, Urine Bilirubin Negative, Urine Urobilinogen 4H, Urine Leukocyte Esterase 2+H, Urine RBC 5-10H, Urine WBC 2-4, Urine Squamous Epithelial Cells Occasional, Urine Bacteria Few, Urine Opiates Screen PositiveH, Urine Barbiturates Screen Negative, Phencyclidine (PCP) Screen Negative, Urine Amphetamines Screen Negative, Urine Benzodiazepines Screen Negative, Urine Cocaine Screen PositiveH, Urine Marijuana (THC) Screen Negative 08/18/19 04:40: White Blood Count 6.4, Red Blood Count 3.31L, Hemoglobin 10.9L, Hematocrit 31.8L , Mean Corpuscular Volume 96, Mean Corpuscular Hemoglobin 33.0H, Mean Corpuscular Hemoglobin Concent 34.4, Red Cell Distribution Width 11.8, Platelet Count 125L, Mean Platelet Volume 8.6, Neutrophils (%) (Auto) 65.0, Lymphocytes ( %) (Auto) 22.5, Monocytes (%) (Auto) 10.2H, Eosinophils (%) (Auto) 1.3, Basophils (%) (Auto) 1.0, Sodium Level 136, Potassium Level 3.3L, Chloride Level 104, Carbon Dioxide Level 26, Anion Gap 6, Blood Urea Nitrogen 12, Creatinine 1.3, Estimat Glomerular Filtration Rate > 60, Glucose Level 181H, Hemoglobin A1c 6.5H, Uric Acid 5.5, Calcium Level 7.8L, Phosphorus Level 2.1L, Magnesium Level 1.4L, Iron Level 50, Total Iron Binding Capacity 203L, Percent Iron Saturation 25, Unsaturated Iron Binding 153, Ferritin 341, Total Bilirubin 1.6H, Direct Bilirubin 0.9H, Aspartate Amino Transf (AST/SGOT) 111H, Alanine Aminotransferase (ALT/SGPT) 46, Alkaline Phosphatase 57, Ammonia 19, Troponin I 0.061H, C-Reactive Protein, Quantitative 2.4H, Pro-B-Type Natriuretic Peptide 1036H, Total Protein 6.8, Albumin 1.9L, Globulin 4.9, Albumin/Globulin Ratio 0.4L, Triglycerides Level 64, Cholesterol Level 84, LDL Cholesterol 51, HDL Cholesterol 21L, Cholesterol/HDL Ratio 4.0, Vitamin B12 Level 480, Folate 16.2, Thyroid Stimulating Hormone (TSH) 0.573, Hepatitis A IgM Antibody [Pending], Hepatitis B Surface Antigen [Pending], Hepatitis B Core IgM Antibody [Pending], Hepatitis C Antibody [Pending] Height (Feet): 6 Height (Inches): 1.00 Weight (Pounds): 220 Objective General Appearance: no apparent distress, confused HEENT: normocephalic Neck: non-tender, supple Respiratory/Chest: decreased breath sounds Abdomen: non tender, soft Extremities: other - left LE in cast, right LE bandages applied Neurologic: alert, responsive Giuliano Liu Aug 18, 2019 10:14
[2019-08-18] MEDS ORDERED: Potassium Phosphate 30 MM in NS 275 ML IV ONE (10:30)
--- NOTE | 2019-08-18 11:29 | Consultation ---
History of Present Illness General Date patient seen: Aug 18, 2019 Reason for Hospitalization: Lower Extremity Injury Present Illness HPI 63-year-old male admitted with complaints of pain in the legs. Hx of recent trauma with cast on left leg. Seen by ortho prior. On eval the patient had a fever of 101 at the time of admission and pulse rate of 120. X- ray of the left tibia and fibula showed a lucency likely fracture or osteopenia prior. abnormal labs and ill appearing. Surgery called to evaluate and assist with care. patient seen, chart reviewed, patient examined. he is a poor historian and cannot recall events. he has multiple skin concerns and requires extensive care and treatment. Allergies: Coded Allergies: PENICILLINS (Verified Allergy, Unknown, 02/10/17) Uncoded Allergies: PENICILLIN (Allergy, Unknown, 05/15/19) Medication History Scheduled Hydralazine Hcl* (Hydralazine Hcl*), 50 MG ORAL EVERY 8 HOURS, (Reported) Metoprolol Tartrate* (Metoprolol Tartrate*), 25 MG ORAL EVERY 12 HOURS, ( Reported) Discontinued Medications Amlodipine Besylate (Norvasc), 5 MG ORAL BID Discontinued Reason: Therapy completed Atenolol* (Tenormin*), 25 MG ORAL DAILY Discontinued Reason: Therapy completed Gabapentin* (Gabapentin*), 100 MG ORAL THREE TIMES A DAY Discontinued Reason: Therapy completed Hydrochlorothiazide (Hydrochlorothiazide), 12.5 MG ORAL DAILY Discontinued Reason: Therapy completed Ibuprofen* (Motrin*), 600 MG ORAL THREE TIMES A DAY Discontinued Reason: Therapy completed Irbesartan* (Avapro*), 150 MG ORAL DAILY Discontinued Reason: Therapy completed Lactulose (Lactulose*), 10 GM ORAL THREE TIMES A DAY Discontinued Reason: Therapy completed Pantoprazole* (Protonix*), 40 MG ORAL DAILY Discontinued Reason: Therapy completed Pantoprazole* (Protonix*), 40 MG ORAL DAILY, (Reported) Discontinued Reason: Therapy completed Rifaximin* (Xifaxan*), 550 MG ORAL EVERY 12 HOURS Discontinued Reason: Therapy completed Unable to Obtain Medications (Unable To Obtain Meds), (Reported) Discontinued Reason: Therapy completed Vancomycin/Water For Inj (Vancomycin 1.5 Gram/300 ml Bag), 1.25 GM IV, (Reported ) Discontinued Reason: Therapy completed [misc], UNIT, (DME) Discontinued Reason: Therapy completed Patient History Limited by: medical condition History Provided By: Medical Record, PMD Healthcare decision maker Resuscitation status Full Code Advanced Directive on File Past Medical/Surgical History Past Medical/Surgical History: (1) Onychomycosis (2) Coagulopathy (3) Acute ischemic left posterior cerebral artery ([place] [employer] [place]) stroke (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 (5) 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 (6) Fracture of distal end of left tibia (7) Peripheral neuropathy (8) Sepsis (9) Hepatic encephalopathy (10) Drug abuse (11) Acute renal failure (12) Anemia (13) Cellulitis (14) Liver cirrhosis (15) Hepatitis C (16) Osteomyelitis of foot, right, acute (17) HTN (hypertension) (18) Intraparenchymal hematoma of brain Review of Systems Review of Symptoms General ROS: no weight loss or fever Psychological ROS: no depression or mood changes, no memory loss Ophthalmic ROS: no visual changes or eye irritation ENT ROS: no nasal congestion, hearing loss, dizziness Allergy and Immunology ROS: no allergic symptoms or urticaria Hematological and Lymphatic ROS: no swollen glands, unusual bleeding or bruising Endocrine ROS: no polyuria, polydipsia, weight changes, temperature intolerance Respiratory ROS: no cough, shortness of breath, or wheezing Cardiovascular ROS: no chest pain or dyspnea on exertion Gastrointestinal ROS: denies abdominal pain, bright red blood in stool. Musculoskeletal ROS: no myalgias or arthralgias Neurological ROS: no TIA or stroke symptoms Dermatological ROS: no new or changing skin lesions, rashes or pruritis minimal given medical condition but nods no to above Physical Exam Physical Exam General appearance: alert, uncomfortable, no distress, appears stated age Head: Normocephalic, without obvious abnormality, atraumatic Eyes: conjunctivae/corneas clear. PERRL, EOM's intact. Fundi benign Throat: Lips, mucosa, and tongue normal. Teeth and gums normal Neck: supple, symmetrical, trachea midline, no adenopathy, thyroid: not enlarged, symmetric, no tenderness/mass/nodules, no carotid bruit and no JVD Lungs: clear to auscultation bilaterally Heart: regular rate and rhythm, S1, S2 normal, no murmur, click, rub or gallop Abdomen: soft, non-tender. Bowel sounds normal. No masses, no organomegaly Extremities: extremities trauma with cast on left an dmultiple wounds on right. Pulses: 2+ and symmetric Skin: other Neurologic: poor Last 24 Hour Vital Signs Date Time Temp Pulse Resp B/P (MAP) Pulse Ox O2 Delivery O2 Flow Rate FiO2 08/18/19 11:00 89 23 149/71 (97) 99 08/18/19 10:14 157/80 08/18/19 10:00 85 25 157/80 (105) 99 08/18/19 09:55 83 157/80 08/18/19 09:00 83 25 152/74 (100) 99 08/18/19 08:36 89 157/74 08/18/19 08:15 Nasal Cannula 2.0 08/18/19 08:00 98.9 87 26 157/74 (101) 99 08/18/19 08:00 87 08/18/19 07:00 86 17 152/83 (106) 98 08/18/19 06:00 88 25 149/86 (107) 99 08/18/19 05:56 137/65 08/18/19 05:00 84 12 137/65 (89) 97 08/18/19 04:00 97 08/18/19 04:00 Nasal Cannula 2.0 08/18/19 04:00 100.0 88 23 144/65 (91) 98 08/18/19 03:00 92 17 142/70 (94) 97 08/18/19 02:00 99 20 142/67 (92) 98 08/18/19 01:00 91 26 139/61 (87) 97 08/18/19 00:00 90 08/18/19 00:00 Nasal Cannula 2.0 08/18/19 00:00 99.3 93 23 139/69 (92) 98 08/17/19 23:00 94 17 140/56 (84) 99 08/17/19 22:24 159/85 08/17/19 22:00 94 23 159/85 (109) 99 08/17/19 21:22 88 161/81 08/17/19 21:00 90 25 161/81 (107) 99 90 08/17/19 20:00 Nasal Cannula 2.0 08/17/19 20:00 87 08/17/19 20:00 98.0 87 21 166/80 (108) 99 87 08/17/19 19:00 98 22 159/75 (103) 99 08/17/19 18:00 86 22 160/80 (106) 99 08/17/19 17:00 98.6 86 22 156/86 (109) 99 08/17/19 16:12 Nasal Cannula 2.0 08/17/19 16:00 93 22 176/95 (122) 99 08/17/19 16:00 89 08/17/19 15:00 96 27 181/113 (135) 99 08/17/19 14:52 96 27 158/95 (116) 99 08/17/19 14:19 99.4 87 25 153/89 (110) 98 08/17/19 12:00 89 08/17/19 12:00 99.0 83 18 141/62 (88) 99 Intake and Output 08/17/19 08/18/19 19:00 07:00 Intake Total 75 ml 1235.000 ml Output Total 630 ml 1120 ml Balance -555 ml 115.000 ml Intake Oral 60 ml IV Total 75 ml 1175.000 ml Output Urine Total 630 ml 1120 ml # Bowel Movements 2 2 Laboratory Tests Test 08/17/19 13:05 08/18/19 04:40 Urine Color Yellow Urine Appearance Clear Urine pH 5 (4.5-8.0) Urine Specific [place] 1.020 (1.005-1.035) Urine Protein 2+ (NEGATIVE) H Urine Glucose (UA) 1+ (NEGATIVE) H Urine Ketones 1+ (NEGATIVE) H Urine Blood 3+ (NEGATIVE) H Urine Nitrite Negative (NEGATIVE) Urine Bilirubin Negative (NEGATIVE) Urine Urobilinogen 4 MG/DL (0.0-1.0) H Urine Leukocyte Esterase 2+ (NEGATIVE) H Urine RBC 5-10 /HPF (0 - 0) H Urine WBC 2-4 /HPF (0 - 0) Urine Squamous Epithelial Cells Occasional /LPF Urine Bacteria Few /HPF (NONE) Urine Opiates Screen Positive (NEGATIVE) H Urine Barbiturates Screen Negative (NEGATIVE) Phencyclidine (PCP) Screen Negative (NEGATIVE) Urine Amphetamines Screen Negative (NEGATIVE) Urine Benzodiazepines Screen Negative (NEGATIVE) Urine Cocaine Screen Positive (NEGATIVE) H Urine Marijuana (THC) Screen Negative (NEGATIVE) White Blood Count 6.4 K/UL (4.8-10.8) Red Blood Count 3.31 M/UL (4.70-6.10) L Hemoglobin 10.9 G/DL (14.2-18.0) L Hematocrit 31.8 % (42.0-52.0) L Mean Corpuscular Volume 96 FL (80-99) Mean Corpuscular Hemoglobin 33.0 PG (27.0-31.0) H Mean Corpuscular Hemoglobin Concent 34.4 G/DL (32.0-36.0) Red Cell Distribution Width 11.8 % (11.6-14.8) Platelet Count 125 K/UL (150-450) L Mean Platelet Volume 8.6 FL (6.5-10.1) Neutrophils (%) (Auto) 65.0 % (45.0-75.0) Lymphocytes (%) (Auto) 22.5 % (20.0-45.0) Monocytes (%) (Auto) 10.2 % (1.0-10.0) H Eosinophils (%) (Auto) 1.3 % (0.0-3.0) Basophils (%) (Auto) 1.0 % (0.0-2.0) Sodium Level 136 MMOL/L (136-145) Potassium Level 3.3 MMOL/L (3.5-5.1) L Chloride Level 104 MMOL/L (98-107) Carbon Dioxide Level 26 MMOL/L (21-32) Anion Gap 6 mmol/L (5-15) Blood Urea Nitrogen 12 mg/dL (7-18) Creatinine 1.3 MG/DL (0.55-1.30) Estimat Glomerular Filtration Rate > 60 mL/min (>60) Glucose Level 181 MG/DL (74-106) H Hemoglobin A1c 6.5 % (4.3-6.0) H Uric Acid 5.5 MG/DL (2.6-7.2) Calcium Level 7.8 MG/DL (8.5-10.1) L Phosphorus Level 2.1 MG/DL (2.5-4.9) L Magnesium Level 1.4 MG/DL (1.8-2.4) L Iron Level 50 ug/dL (50-175) Total Iron Binding Capacity 203 ug/dL (250-450) L Percent Iron Saturation 25 % (15-50) Unsaturated Iron Binding 153 ug/dL (112-346) Ferritin 341 NG/ML (8-388) Total Bilirubin 1.6 MG/DL (0.2-1.0) H Direct Bilirubin 0.9 MG/DL (0.0-0.3) H Aspartate Amino Transf (AST/SGOT) 111 U/L (15-37) H Alanine Aminotransferase (ALT/SGPT) 46 U/L (12-78) Alkaline Phosphatase 57 U/L (46-116) Ammonia 19 umol/L (11-32) Troponin I 0.061 ng/mL (0.000-0.056) C-Reactive Protein, Quantitative 2.4 mg/dL (0.00-0.90) H Pro-B-Type Natriuretic Peptide 1036 pg/mL (0-125) H Total Protein 6.8 G/DL (6.4-8.2) Albumin 1.9 G/DL (3.4-5.0) L Globulin 4.9 g/dL Albumin/Globulin Ratio 0.4 (1.0-2.7) L Triglycerides Level 64 MG/DL (30-150) Cholesterol Level 84 MG/DL (< 200) LDL Cholesterol 51 mg/dL (<100) HDL Cholesterol 21 MG/DL (40-60) L Cholesterol/HDL Ratio 4.0 (3.3-4.4) Vitamin B12 Level 480 PG/ML (193-986) Folate 16.2 NG/ML (8.6-58.9) Thyroid Stimulating Hormone (TSH) 0.573 uiU/mL (0.358-3.740) Hepatitis A IgM Antibody Pending Hepatitis B Surface Antigen Pending Hepatitis B Core IgM Antibody Pending Hepatitis C Antibody Pending Height (Feet): 6 Height (Inches): 1.00 Weight (Pounds): 220 Medications Current Medications Medications (Trade) Dose Ordered Sig/Sharla Route PRN Reason Start Time Stop Time Status Last Admin Dose Admin Amlodipine Besylate (Norvasc) 5 mg DAILY ORAL 08/19/19 09:00 09/17/19 08:59 Chlorhexidine Gluconate (Chastity-Hex 2%) 1 applic DAILY@1999 TOPIC 08/18/19 20:00 09/17/19 19:59 Dextrose/Sodium Chloride 1,000 ml @ 50 mls/hr Q20H IV 08/18/19 17:00 09/16/19 16:59 08/18/19 10:51 Heparin Sodium/ Sodium Chloride (Heparin 1000 units/500ml Premix) 1,000 unit ONCE PRN IV for picc line placement 08/18/19 05:15 08/20/19 05:14 Hydralazine HCl (Apresoline) 50 mg EVERY 8 HOURS ORAL 08/18/19 14:00 09/16/19 21:59 Lactulose (Cephulac) 30 gm BID ORAL 08/18/19 18:00 09/16/19 10:59 Lidocaine HCl (Xylocaine 1% 30ml) 30 ml ONCE PRN INJ picc line placement 08/18/19 05:15 08/20/19 05:14 Magnesium Sulfate 100 ml @ 100 mls/hr Q1H IVPB 08/18/19 09:00 08/18/19 12:59 08/18/19 11:14 Metoprolol Tartrate (Lopressor) 25 mg EVERY 12 HOURS ORAL 08/17/19 21:00 09/16/19 20:59 08/18/19 08:36 Morphine Sulfate (Morphine Sulfate) 2 mg Q4H PRN IVP severe pain 08/17/19 14:27 08/24/19 14:26 Nitroglycerin (Ntg) 1 patch Q24H TDERMAL 08/18/19 09:00 09/17/19 08:59 08/18/19 10:14 Pantoprazole (Protonix) 40 mg DAILY ORAL 08/19/19 09:00 09/18/19 08:59 Potassium Phosphate 30 mm/ Sodium Chloride 285 ml @ 47.5 mls/hr ONCE ONCE IV 08/18/19 10:30 08/18/19 16:29 08/18/19 10:50 Thiamine HCl 100 mg/Dextrose 56 ml @ 112 mls/hr Q24H IVPB 08/17/19 16:00 09/16/19 15:59 08/17/19 17:33 Vancomycin HCl (Vanco rx to dose) 1 ea DAILY PRN MISC Per rx protocol 08/18/19 09:00 09/16/19 12:59 Vancomycin HCl 1 gm/Dextrose 275 ml @ 183.708 mls/hr Q12HR@0300,1500 IVPB 08/17/19 15:00 08/22/19 14:59 08/18/19 03:03 Assessment/Plan Problem List: (1) 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 Wounds Right lower ext are malodorous. Irregular shaped ulcers with fibrinous slough vaibhav, medial and posterior R tibia,wounds oozing seropurulent exudate.Surrounding Xerosis skin noted. Large ulcer noted to dorsal R foot. Fibrinous slough at base of wound with macerated borders. Ulcers dorsal and web space of R 1st metatarsal oozing serosanguineous exudate. Small amt sanguineous exudate noted. R heel boggy,tender when palpated. RLE and R foot thoroughly washed ,gently scrubbed and moisturized to remove thick scaly skin. Post cleansing wounds are still malodorous. Pt stated he had wounds for considerable time but denied ever seeking medical attention for wounds. No other skin concerns noted.Pt has Splint L lower ext. Tx.Plan: Cleanse wounds RLE and R foot with Dakin's 0.125% solution. Apply TheraHoney. Cover each wound with Maxsorb Extra(Calcium Alginate) Apply Abd Pads and wrap with Kerlix from base of toes to below knee. Elevate leg on pillows. Reposition at least every 2hours or as tolerated. ICD Codes: L97.502 - Non-pressure chronic ulcer of other part of unspecified foot with fat layer exposed SNOMED: 83966346, [id number] Qualifiers: Qualified Codes: L97.522 - Non-pressure chronic ulcer of other part of left foot with fat layer exposed (2) Fracture of distal end of left tibia Assessment & Plan: No acute fracture, malalignment, or periosteal reaction are identified. Soft tissues are unremarkable. The AP or frontal projection is limited by the presence of a posterior splint. Impression: No obvious acute injury. ICD Codes: S82.302A - Unspecified fracture of lower end of left tibia, initial encounter for closed fracture SNOMED: 865391247 Qualifiers: Qualified Codes: S82.302A - Unspecified fracture of lower end of left tibia , initial encounter for closed fracture (3) Osteomyelitis of foot, right, acute Assessment & Plan: No acute fracture, malalignment, or periosteal reaction are identified. Soft tissues are unremarkable. The AP or frontal projection is limited by the presence of a posterior splint. Impression: No obvious acute injury. ICD Codes: M86.171 - Other acute osteomyelitis, right ankle and foot SNOMED: 40174386 (4) Cellulitis Assessment & Plan: as above abx as per ID ICD Codes: L03.90 - Cellulitis, unspecified SNOMED: 795559611 (5) Abnormal LFTs Assessment & Plan: hx of liver insufficiency / disease lft's mildly elevated US abd ordered will follow with recs trends labs ICD Codes: R94.5 - Abnormal results of liver function studies SNOMED: 453000227 Patrick Ga Aug 18, 2019 11:29
--- NOTE | 2019-08-18 12:43 | Diagnostic Imaging Report ---
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 The right upper extremity was prepped with alcohol. All elements of maximal sterile barrier technique were followed including usage of a cap, mask, sterile gown, sterile gloves, hand hygiene and a large sterile sheet. Sonographic evaluation of the upper extremity was performed demonstrating a patent and compressible brachial vein. Access was obtained under real-time ultrasound guidance (with utilization of sterile gel and sterile probe cover) and digital image was saved and archived. An .018 wire was introduced. Needle exchanged for a 5 [place] peel-away sheath. Measurements were obtained. A 5 [place] dual-lumen Power PICC line catheter was cut to 38 cm and introduced over the wire. Peel-away sheath and wire were removed.Catheter was secured to the skin using 2-0 Prolene suture. Both ports aspirate and flush easily. Post procedure chest x-ray demonstrates good position of the PICC line catheter within the SVC. Impression: Successful placement of an upper extremity PICC line catheter
--- NOTE | 2019-08-18 13:22 | Consultation ---
History of Present Illness General Date patient seen: Aug 18, 2019 Time patient seen: 11:50 Chief Complaint: Lower Extremity Injury Referring physician: Dr. Arauz Reason for Consultation: Pain Management Present Illness HPI Pt seen at bedside for RLE ulceration and LLE tib/fib possible fx seen. Pt appears resting at bedside, he relates pain to B/L L/E. Allergies: Coded Allergies: PENICILLINS (Verified Allergy, Unknown, 02/10/17) Uncoded Allergies: PENICILLIN (Allergy, Unknown, 05/15/19) Medication History Scheduled Hydralazine Hcl* (Hydralazine Hcl*), 50 MG ORAL EVERY 8 HOURS, (Reported) Metoprolol Tartrate* (Metoprolol Tartrate*), 25 MG ORAL EVERY 12 HOURS, ( Reported) Discontinued Medications Amlodipine Besylate (Norvasc), 5 MG ORAL BID Discontinued Reason: Therapy completed Atenolol* (Tenormin*), 25 MG ORAL DAILY Discontinued Reason: Therapy completed Gabapentin* (Gabapentin*), 100 MG ORAL THREE TIMES A DAY Discontinued Reason: Therapy completed Hydrochlorothiazide (Hydrochlorothiazide), 12.5 MG ORAL DAILY Discontinued Reason: Therapy completed Ibuprofen* (Motrin*), 600 MG ORAL THREE TIMES A DAY Discontinued Reason: Therapy completed Irbesartan* (Avapro*), 150 MG ORAL DAILY Discontinued Reason: Therapy completed Lactulose (Lactulose*), 10 GM ORAL THREE TIMES A DAY Discontinued Reason: Therapy completed Pantoprazole* (Protonix*), 40 MG ORAL DAILY Discontinued Reason: Therapy completed Pantoprazole* (Protonix*), 40 MG ORAL DAILY, (Reported) Discontinued Reason: Therapy completed Rifaximin* (Xifaxan*), 550 MG ORAL EVERY 12 HOURS Discontinued Reason: Therapy completed Unable to Obtain Medications (Unable To Obtain Meds), (Reported) Discontinued Reason: Therapy completed Vancomycin/Water For Inj (Vancomycin 1.5 Gram/300 ml Bag), 1.25 GM IV, (Reported ) Discontinued Reason: Therapy completed [misc], UNIT, (DME) Discontinued Reason: Therapy completed Patient History Healthcare decision maker Resuscitation status Full Code Advanced Directive on File Physical Exam Physical Exam Narrative Focused B/L L/E: Derm: Superficial ulcerations noted distal to tibial tubersotiy. Ulcerations noted to subQ layer. (+) mal-odor, (-) purulent drainage. (+) hyper- pigmentation. Vasc: +1/4 DP/PT. PASTRY SOUS CHEF < 3 seconds Neuro: SILT intact to all dermatomes. MSK: MS/ROM , deferred to pain. Last 24 Hour Vital Signs Date Time Temp Pulse Resp B/P (MAP) Pulse Ox O2 Delivery O2 Flow Rate FiO2 08/18/19 13:00 97 33 149/92 (111) 99 08/18/19 12:00 98.7 97 39 145/75 (98) 98 08/18/19 11:00 89 23 149/71 (97) 99 08/18/19 10:14 157/80 08/18/19 10:00 85 25 157/80 (105) 99 08/18/19 09:55 83 157/80 08/18/19 09:00 83 25 152/74 (100) 99 08/18/19 08:36 89 157/74 08/18/19 08:15 Nasal Cannula 2.0 08/18/19 08:00 98.9 87 26 157/74 (101) 99 08/18/19 08:00 87 08/18/19 07:00 86 17 152/83 (106) 98 08/18/19 06:00 88 25 149/86 (107) 99 08/18/19 05:56 137/65 08/18/19 05:00 84 12 137/65 (89) 97 08/18/19 04:00 97 08/18/19 04:00 Nasal Cannula 2.0 08/18/19 04:00 100.0 88 23 144/65 (91) 98 08/18/19 03:00 92 17 142/70 (94) 97 08/18/19 02:00 99 20 142/67 (92) 98 08/18/19 01:00 91 26 139/61 (87) 97 08/18/19 00:00 90 08/18/19 00:00 Nasal Cannula 2.0 08/18/19 00:00 99.3 93 23 139/69 (92) 98 08/17/19 23:00 94 17 140/56 (84) 99 08/17/19 22:24 159/85 08/17/19 22:00 94 23 159/85 (109) 99 08/17/19 21:22 88 161/81 08/17/19 21:00 90 25 161/81 (107) 99 90 08/17/19 20:00 Nasal Cannula 2.0 08/17/19 20:00 87 08/17/19 20:00 98.0 87 21 166/80 (108) 99 87 08/17/19 19:00 98 22 159/75 (103) 99 08/17/19 18:00 86 22 160/80 (106) 99 08/17/19 17:00 98.6 86 22 156/86 (109) 99 08/17/19 16:12 Nasal Cannula 2.0 08/17/19 16:00 93 22 176/95 (122) 99 08/17/19 16:00 89 08/17/19 15:00 96 27 181/113 (135) 99 08/17/19 14:52 96 27 158/95 (116) 99 08/17/19 14:19 99.4 87 25 153/89 (110) 98 Intake and Output 08/17/19 08/18/19 19:00 07:00 Intake Total 75 ml 1235.000 ml Output Total 630 ml 1120 ml Balance -555 ml 115.000 ml Intake Oral 60 ml IV Total 75 ml 1175.000 ml Output Urine Total 630 ml 1120 ml # Bowel Movements 2 2 Laboratory Tests Test 08/18/19 04:40 White Blood Count 6.4 K/UL (4.8-10.8) Red Blood Count 3.31 M/UL (4.70-6.10) L Hemoglobin 10.9 G/DL (14.2-18.0) L Hematocrit 31.8 % (42.0-52.0) L Mean Corpuscular Volume 96 FL (80-99) Mean Corpuscular Hemoglobin 33.0 PG (27.0-31.0) H Mean Corpuscular Hemoglobin Concent 34.4 G/DL (32.0-36.0) Red Cell Distribution Width 11.8 % (11.6-14.8) Platelet Count 125 K/UL (150-450) L Mean Platelet Volume 8.6 FL (6.5-10.1) Neutrophils (%) (Auto) 65.0 % (45.0-75.0) Lymphocytes (%) (Auto) 22.5 % (20.0-45.0) Monocytes (%) (Auto) 10.2 % (1.0-10.0) H Eosinophils (%) (Auto) 1.3 % (0.0-3.0) Basophils (%) (Auto) 1.0 % (0.0-2.0) Sodium Level 136 MMOL/L (136-145) Potassium Level 3.3 MMOL/L (3.5-5.1) L Chloride Level 104 MMOL/L (98-107) Carbon Dioxide Level 26 MMOL/L (21-32) Anion Gap 6 mmol/L (5-15) Blood Urea Nitrogen 12 mg/dL (7-18) Creatinine 1.3 MG/DL (0.55-1.30) Estimat Glomerular Filtration Rate > 60 mL/min (>60) Glucose Level 181 MG/DL (74-106) H Hemoglobin A1c 6.5 % (4.3-6.0) H Uric Acid 5.5 MG/DL (2.6-7.2) Calcium Level 7.8 MG/DL (8.5-10.1) L Phosphorus Level 2.1 MG/DL (2.5-4.9) L Magnesium Level 1.4 MG/DL (1.8-2.4) L Iron Level 50 ug/dL (50-175) Total Iron Binding Capacity 203 ug/dL (250-450) L Percent Iron Saturation 25 % (15-50) Unsaturated Iron Binding 153 ug/dL (112-346) Ferritin 341 NG/ML (8-388) Total Bilirubin 1.6 MG/DL (0.2-1.0) H Direct Bilirubin 0.9 MG/DL (0.0-0.3) H Aspartate Amino Transf (AST/SGOT) 111 U/L (15-37) H Alanine Aminotransferase (ALT/SGPT) 46 U/L (12-78) Alkaline Phosphatase 57 U/L (46-116) Ammonia 19 umol/L (11-32) Troponin I 0.061 ng/mL (0.000-0.056) C-Reactive Protein, Quantitative 2.4 mg/dL (0.00-0.90) H Pro-B-Type Natriuretic Peptide 1036 pg/mL (0-125) H Total Protein 6.8 G/DL (6.4-8.2) Albumin 1.9 G/DL (3.4-5.0) L Globulin 4.9 g/dL Albumin/Globulin Ratio 0.4 (1.0-2.7) L Triglycerides Level 64 MG/DL (30-150) Cholesterol Level 84 MG/DL (< 200) LDL Cholesterol 51 mg/dL (<100) HDL Cholesterol 21 MG/DL (40-60) L Cholesterol/HDL Ratio 4.0 (3.3-4.4) Vitamin B12 Level 480 PG/ML (193-986) Folate 16.2 NG/ML (8.6-58.9) Thyroid Stimulating Hormone (TSH) 0.573 uiU/mL (0.358-3.740) Hepatitis A IgM Antibody Pending Hepatitis B Surface Antigen Pending Hepatitis B Core IgM Antibody Pending Hepatitis C Antibody Pending Height (Feet): 6 Height (Inches): 1.00 Weight (Pounds): 220 Medications Current Medications Medications (Trade) Dose Ordered Sig/Sharla Route PRN Reason Start Time Stop Time Status Last Admin Dose Admin Amlodipine Besylate (Norvasc) 5 mg DAILY ORAL 08/19/19 09:00 09/17/19 08:59 Chlorhexidine Gluconate (Chastity-Hex 2%) 1 applic DAILY@2000 TOPIC 08/18/19 20:00 09/17/19 19:59 Dextrose/Sodium Chloride 1,000 ml @ 50 mls/hr Q20H IV 08/18/19 17:00 09/16/19 16:59 08/18/19 10:51 Heparin Sodium/ Sodium Chloride (Heparin 1000 units/500ml Premix) 1,000 unit ONCE PRN IV for picc line placement 08/18/19 05:15 08/20/19 05:14 Hydralazine HCl (Apresoline) 50 mg EVERY 8 HOURS ORAL 08/18/19 14:00 09/16/19 21:59 Lactulose (Cephulac) 30 gm BID ORAL 08/18/19 18:00 09/16/19 10:59 Lidocaine HCl (Xylocaine 1% 30ml) 30 ml ONCE PRN INJ picc line placement 08/18/19 05:15 08/20/19 05:14 Metoprolol Tartrate (Lopressor) 25 mg EVERY 12 HOURS ORAL 08/17/19 21:00 09/16/19 20:59 08/18/19 08:36 Morphine Sulfate (Morphine Sulfate) 2 mg Q4H PRN IVP severe pain 08/17/19 14:27 08/24/19 14:26 Nitroglycerin (Ntg) 1 patch Q24H TDERMAL 08/18/19 09:00 09/17/19 08:59 08/18/19 10:14 Pantoprazole (Protonix) 40 mg DAILY ORAL 08/19/19 09:00 09/18/19 08:59 Potassium Phosphate 30 mm/ Sodium Chloride 285 ml @ 47.5 mls/hr ONCE ONCE IV 08/18/19 10:30 08/18/19 16:29 08/18/19 10:50 Thiamine HCl 100 mg/Dextrose 56 ml @ 112 mls/hr Q24H IVPB 08/17/19 16:00 09/16/19 15:59 08/17/19 17:33 Vancomycin HCl (Vanco rx to dose) 1 ea DAILY PRN MISC Per rx protocol 08/18/19 09:00 09/16/19 12:59 Vancomycin HCl 1 gm/Dextrose 275 ml @ 183.708 mls/hr Q12HR@0300,1500 IVPB 08/17/19 15:00 08/22/19 14:59 08/18/19 03:03 Assessment/Plan Assessment/Plan: A: - RLE ulcerations. - LLE possible fx tib/fib on XR. - Peripheral Neuropathy. - Hematoma confirmed on head CT. - HTN. - Sepsis. - Intra-cranial bleeding. P: - Pt seen and evaluated. - Discuss findings with patient. - Temp, 97.8 - WBC, 6.4 - Cont local wound care to B/L L/E. - LLE Pt in splint, keep C/D/I. - B/L off-loading measures to L/E. - Cont IV ABx. - Cont Tx per specialits. - RLE MRI ordered R/O OM, deep soft tissue infection. - B/L L/E Arterial and Venous U/S pending. - No acute surgical intervention required at this time. - Podiatry will cont to monitor. Niko Vincent DPM Aug 18, 2019 13:21
[2019-08-18] MEDS ORDERED: HydrALAZINE 50mg tab ORAL SCH (14:00)
[2019-08-18] MEDS: Thiamine HCl 100 MG in D5W 55 ML IVPB SCH (16:36)
[2019-08-18] MEDS ORDERED: D5NS 1,000 ML IV SCH ×2 (17:00→19:00)
--- NOTE | 2019-08-18 17:00 | Progress Note ---
DATE: 08/18/2019 SUBJECTIVE: The patient is much more awake today, but still confused. PHYSICAL EXAMINATION: VITAL SIGNS: Blood pressure is 157/74, pulse of 87 and regular, temperature is 98.9 degrees. MENTAL STATUS: The patient is more awake, answering more sentences. Date, he thinks it is 06/21/1998. Place, he knows he is at a hospital, [facility]. He is oriented to person. He could not spell world forwards or backwards. He can do one-step commands. CRANIAL NERVE EXAMINATION: CRANIAL NERVE II: Visual hayes are intact to confrontation. CRANIAL NERVES III, IV, AND : Extraocular motility is full. The right pupil is 4 mm. Left pupil is 5 mm. Both light reactive. CRANIAL NERVE V: Corneal sensation is intact bilaterally. CRANIAL NERVE VII: Decreased right nasolabial fold and smile. CRANIAL NERVE VIII: Auditory acuity is only partially intact . CRANIAL NERVES IX AND X: Gag is intact bilaterally. CRANIAL NERVE XI: Sternocleidomastoid strength is 5/5. CRANIAL NERVE XII: Tongue protrudes in the midline without fasciculations or atrophy. MUSCLE EXAMINATION: Muscle bulk is fairly symmetrical. Tone reveals decreased tone in both upper extremities, more tone in the lower extremities. Strength is 4+ or 5-/5 bilaterally. Fairly symmetrical in the upper extremities. Lower extremities, right leg is at least 3/5. Left leg is at least 3/5 proximally. Reflexes are 0 at the upper extremities at the knees. COORDINATION: [id number]-[id number] is intact. SENSORY EXAMINATION: He could tell the difference between pinprick and fine touch in all the extremities. IMPRESSION: This patient has not changed. His serum sodium is 136. His blood pressure is a little too high. I would just lower the blood pressure. The patient's hematoma is small. We can send him out to telemetry. He still has a hypertensive hemorrhage in the left thalamus. The patient's lethargy last night may have been due to sundowning. PLAN: 1. Transfer the patient to telemetry if stable. 2. Decrease blood pressure to at least to the 140s range. 3. Make sure serum sodium is above 135 to 145 range at this point. Gary MD Zach DR: ESTER JOB#: [id number] CC:
[2019-08-18] MEDS ORDERED: Lactulose 20gm/30ml UDC ORAL SCH ×2 (18:00→19:00)
[2019-08-18] MEDS ORDERED: Dyna-Hex 2% Top Sol 2oz TOPIC SCH (20:00)
[2019-08-18] MEDS: Dyna-Hex 2% Top Sol 2oz TOPIC SCH (20:40)
--- NOTE | 2019-08-18 21:18 | General Progress Note ---
Assessment/Plan Problem List: (1) Anemia ICD Codes: D64.9 - Anemia, unspecified SNOMED: 547280037 (2) Cellulitis ICD Codes: L03.90 - Cellulitis, unspecified SNOMED: 870673082 (3) Liver cirrhosis ICD Codes: K74.60 - Unspecified cirrhosis of liver SNOMED: 35942462 Qualifiers: Qualified Codes: K74.60 - Unspecified cirrhosis of liver (4) Drug abuse ICD Codes: F19.10 - Other psychoactive substance abuse, uncomplicated SNOMED: 34611085 (5) Peripheral neuropathy ICD Codes: G62.9 - Polyneuropathy, unspecified SNOMED: 790923388 Qualifiers: Qualified Codes: G62.9 - Polyneuropathy, unspecified (6) Fracture of distal end of left tibia ICD Codes: S82.302A - Unspecified fracture of lower end of left tibia, initial encounter for closed fracture SNOMED: 270284108 Qualifiers: Qualified Codes: S82.302A - Unspecified fracture of lower end of left tibia , initial encounter for closed fracture (7) Hepatitis C ICD Codes: B19.20 - Unspecified viral hepatitis C without hepatic coma SNOMED: 83399626 (8) Hepatic encephalopathy ICD Codes: K72.90 - Hepatic failure, unspecified without coma SNOMED: 10982472 (9) Coagulopathy ICD Codes: D68.9 - Coagulation defect, unspecified SNOMED: 43699288 (10) Sepsis ICD Codes: A41.9 - Sepsis, unspecified organism SNOMED: 66841665 (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 (12) Abnormal LFTs ICD Codes: R94.5 - Abnormal results of liver function studies SNOMED: 738003402 Status: progressing Assessment/Plan: intracranial hemorrhge was cleared by dr barrios [facility] polysubstance abuse hepatic encephalopathy coagulapathy consulted dr shannon Subjective ROS Limited/Unobtainable: Yes Allergies: Coded Allergies: PENICILLINS (Verified Allergy, Unknown, 02/10/17) Uncoded Allergies: PENICILLIN (Allergy, Unknown, 05/15/19) Objective Last 24 Hour Vital Signs Date Time Temp Pulse Resp B/P (MAP) Pulse Ox O2 Delivery O2 Flow Rate FiO2 08/18/19 20:00 99.0 94 24 148/69 (95) 99 08/18/19 17:00 88 24 147/73 (97) 99 08/18/19 16:00 92 08/18/19 16:00 Nasal Cannula 2.0 08/18/19 16:00 98.6 97 27 151/83 (105) 98 08/18/19 15:00 89 34 159/84 (109) 98 08/18/19 14:23 147/71 08/18/19 14:00 89 37 147/71 (96) 98 08/18/19 13:00 97 33 149/92 (111) 99 08/18/19 12:00 Nasal Cannula 2.0 08/18/19 12:00 98.7 97 39 145/75 (98) 98 08/18/19 12:00 98 08/18/19 11:00 89 23 149/71 (97) 99 08/18/19 10:14 157/80 08/18/19 10:00 85 25 157/80 (105) 99 08/18/19 09:55 83 157/80 08/18/19 09:00 83 25 152/74 (100) 99 08/18/19 08:36 89 157/74 08/18/19 08:15 Nasal Cannula 2.0 08/18/19 08:00 98.9 87 26 157/74 (101) 99 08/18/19 08:00 87 08/18/19 07:00 86 17 152/83 (106) 98 08/18/19 06:00 88 25 149/86 (107) 99 08/18/19 05:56 137/65 08/18/19 05:00 84 12 137/65 (89) 97 08/18/19 04:00 97 08/18/19 04:00 Nasal Cannula 2.0 08/18/19 04:00 100.0 88 23 144/65 (91) 98 08/18/19 03:00 92 17 142/70 (94) 97 08/18/19 02:00 99 20 142/67 (92) 98 08/18/19 01:00 91 26 139/61 (87) 97 08/18/19 00:00 90 08/18/19 00:00 Nasal Cannula 2.0 08/18/19 00:00 99.3 93 23 139/69 (92) 98 08/17/19 23:00 94 17 140/56 (84) 99 08/17/19 22:24 159/85 08/17/19 22:00 94 23 159/85 (109) 99 08/17/19 21:22 88 161/81 Intake and Output 08/17/19 08/18/19 19:00 07:00 Intake Total 75 ml 1235.000 ml Output Total 630 ml 1120 ml Balance -555 ml 115.000 ml Intake Oral 60 ml IV Total 75 ml 1175.000 ml Output Urine Total 630 ml 1120 ml # Bowel Movements 2 2 Laboratory Tests 08/18/19 04:40: White Blood Count 6.4, Red Blood Count 3.31L, Hemoglobin 10.9L, Hematocrit 31.8L , Mean Corpuscular Volume 96, Mean Corpuscular Hemoglobin 33.0H, Mean Corpuscular Hemoglobin Concent 34.4, Red Cell Distribution Width 11.8, Platelet Count 125L, Mean Platelet Volume 8.6, Neutrophils (%) (Auto) 65.0, Lymphocytes ( %) (Auto) 22.5, Monocytes (%) (Auto) 10.2H, Eosinophils (%) (Auto) 1.3, Basophils (%) (Auto) 1.0, Sodium Level 136, Potassium Level 3.3L, Chloride Level 104, Carbon Dioxide Level 26, Anion Gap 6, Blood Urea Nitrogen 12, Creatinine 1.3, Estimat Glomerular Filtration Rate > 60, Glucose Level 181H, Hemoglobin A1c 6.5H, Uric Acid 5.5, Calcium Level 7.8L, Phosphorus Level 2.1L, Magnesium Level 1.4L, Iron Level 50, Total Iron Binding Capacity 203L, Percent Iron Saturation 25, Unsaturated Iron Binding 153, Ferritin 341, Total Bilirubin 1.6H, Direct Bilirubin 0.9H, Aspartate Amino Transf (AST/SGOT) 111H, Alanine Aminotransferase (ALT/SGPT) 46, Alkaline Phosphatase 57, Ammonia 19, Troponin I 0.061H, C-Reactive Protein, Quantitative 2.4H, Pro-B-Type Natriuretic Peptide 1036H, Total Protein 6.8, Albumin 1.9L, Globulin 4.9, Albumin/Globulin Ratio 0.4L, Triglycerides Level 64, Cholesterol Level 84, LDL Cholesterol 51, HDL Cholesterol 21L, Cholesterol/HDL Ratio 4.0, Vitamin B12 Level 480, Folate 16.2, Thyroid Stimulating Hormone (TSH) 0.573, Hepatitis A IgM Antibody [Pending], Hepatitis B Surface Antigen [Pending], Hepatitis B Core IgM Antibody [Pending], Hepatitis C Antibody [Pending] Height (Feet): 6 Height (Inches): 1.00 Weight (Pounds): 220 Cardiovascular: normal rate Respiratory/Chest: lungs clear Abdomen: soft Esthela Arauz MD Aug 18, 2019 21:18
--- NOTE | 2019-08-18 22:58 | General Progress Note ---
Assessment/Plan Status: progressing Assessment/Plan: Assessment - intracrainial bleed - LE edema - aspiration risk due to AMS - Anemia - minimally elevated NH3 - suspect incidental Recommendations - d/c lactulose - neuro exams - check VSS - check CT abd Subjective Allergies: Coded Allergies: PENICILLINS (Verified Allergy, Unknown, 02/10/17) Uncoded Allergies: PENICILLIN (Allergy, Unknown, 05/15/19) Subjective Seen this am in ICU subsequently transferred to [facility] more awake today not clear if can swallow safely Objective Last 24 Hour Vital Signs Date Time Temp Pulse Resp B/P (MAP) Pulse Ox O2 Delivery O2 Flow Rate FiO2 08/18/19 22:29 168/85 08/18/19 21:35 91 164/83 08/18/19 20:00 99.0 94 24 148/69 (95) 99 08/18/19 17:00 88 24 147/73 (97) 99 08/18/19 16:00 92 08/18/19 16:00 Nasal Cannula 2.0 08/18/19 16:00 98.6 97 27 151/83 (105) 98 08/18/19 15:00 89 34 159/84 (109) 98 08/18/19 14:23 147/71 08/18/19 14:00 89 37 147/71 (96) 98 08/18/19 13:00 97 33 149/92 (111) 99 08/18/19 12:00 Nasal Cannula 2.0 08/18/19 12:00 98.7 97 39 145/75 (98) 98 08/18/19 12:00 98 08/18/19 11:00 89 23 149/71 (97) 99 08/18/19 10:14 157/80 08/18/19 10:00 85 25 157/80 (105) 99 08/18/19 09:55 83 157/80 08/18/19 09:00 83 25 152/74 (100) 99 08/18/19 08:36 89 157/74 08/18/19 08:15 Nasal Cannula 2.0 08/18/19 08:00 98.9 87 26 157/74 (101) 99 08/18/19 08:00 87 08/18/19 07:00 86 17 152/83 (106) 98 08/18/19 06:00 88 25 149/86 (107) 99 08/18/19 05:56 137/65 08/18/19 05:00 84 12 137/65 (89) 97 08/18/19 04:00 97 08/18/19 04:00 Nasal Cannula 2.0 08/18/19 04:00 100.0 88 23 144/65 (91) 98 08/18/19 03:00 92 17 142/70 (94) 97 08/18/19 02:00 99 20 142/67 (92) 98 08/18/19 01:00 91 26 139/61 (87) 97 08/18/19 00:00 90 08/18/19 00:00 Nasal Cannula 2.0 08/18/19 00:00 99.3 93 23 139/69 (92) 98 08/17/19 23:00 94 17 140/56 (84) 99 Intake and Output 08/17/19 08/18/19 19:00 07:00 Intake Total 75 ml 1235.000 ml Output Total 630 ml 1120 ml Balance -555 ml 115.000 ml Intake Oral 60 ml IV Total 75 ml 1175.000 ml Output Urine Total 630 ml 1120 ml # Bowel Movements 2 2 Laboratory Tests 08/18/19 04:40: White Blood Count 6.4, Red Blood Count 3.31L, Hemoglobin 10.9L, Hematocrit 31.8L , Mean Corpuscular Volume 96, Mean Corpuscular Hemoglobin 33.0H, Mean Corpuscular Hemoglobin Concent 34.4, Red Cell Distribution Width 11.8, Platelet Count 125L, Mean Platelet Volume 8.6, Neutrophils (%) (Auto) 65.0, Lymphocytes ( %) (Auto) 22.5, Monocytes (%) (Auto) 10.2H, Eosinophils (%) (Auto) 1.3, Basophils (%) (Auto) 1.0, Sodium Level 136, Potassium Level 3.3L, Chloride Level 104, Carbon Dioxide Level 26, Anion Gap 6, Blood Urea Nitrogen 12, Creatinine 1.3, Estimat Glomerular Filtration Rate > 60, Glucose Level 181H, Hemoglobin A1c 6.5H, Uric Acid 5.5, Calcium Level 7.8L, Phosphorus Level 2.1L, Magnesium Level 1.4L, Iron Level 50, Total Iron Binding Capacity 203L, Percent Iron Saturation 25, Unsaturated Iron Binding 153, Ferritin 341, Total Bilirubin 1.6H, Direct Bilirubin 0.9H, Aspartate Amino Transf (AST/SGOT) 111H, Alanine Aminotransferase (ALT/SGPT) 46, Alkaline Phosphatase 57, Ammonia 19, Troponin I 0.061H, C-Reactive Protein, Quantitative 2.4H, Pro-B-Type Natriuretic Peptide 1036H, Total Protein 6.8, Albumin 1.9L, Globulin 4.9, Albumin/Globulin Ratio 0.4L, Triglycerides Level 64, Cholesterol Level 84, LDL Cholesterol 51, HDL Cholesterol 21L, Cholesterol/HDL Ratio 4.0, Vitamin B12 Level 480, Folate 16.2, Thyroid Stimulating Hormone (TSH) 0.573, Hepatitis A IgM Antibody [Pending], Hepatitis B Surface Antigen [Pending], Hepatitis B Core IgM Antibody [Pending], Hepatitis C Antibody [Pending] Height (Feet): 6 Height (Inches): 1.00 Weight (Pounds): 220 Objective WDWN NCAT suppleCTA RRR abd soft ND NT no edema Viktoria Chatterjee MD Aug 18, 2019 22:58
[2019-08-19] VITALS: BP 157/87
--- NOTE | 2019-08-19 00:45 | Consultation ---
DATE OF CONSULTATION: 08/17/2019 GASTROENTEROLOGY CONSULTATION CONSULTING PHYSICIAN: Viktoria Chatterjee M.D. CHIEF COMPLAINT: I was asked to see this patient by Dr. Arauz for evaluation of altered mental status and mildly elevated ammonia. This dictation is being repeated since the first version does not appear to be online. HISTORY OF PRESENT ILLNESS: The patient is a 63-year-old man, who was brought to the hospital in confused and altered mental status. The patient has a mildly elevated ammonia and this consultation was generated. The patient has some elevated liver tests and he is suspected of having advanced liver disease. There is no further history available from this patient because of his confusion. PAST MEDICAL HISTORY: Otherwise unknown. FAMILY HISTORY: Unknown. SOCIAL HISTORY: Unknown. ALLERGIES: Reportedly penicillin. REVIEW OF SYSTEMS: Unknown, unable to obtain. PHYSICAL EXAMINATION: GENERAL: man, seen in his room. HEENT: Normocephalic and atraumatic. NECK: Supple. CHEST: Clear to auscultation. CARDIOVASCULAR: Revealed a regular rate. ABDOMEN: Soft. EXTREMITIES: Revealed leg edema with venous stasis changes and Cassie intertrigo. There is also some subcutaneous nodules skin. ASSESSMENT: This patient presents with altered mental status of unclear etiology. He does have some abnormalities in his liver profile and therefore imaging with CT scan at some point will be worthwhile. I will also start him on lactulose. checked. His lower extremities appeared edematous and I would defer to primary team checking duplex for deep vein thrombosis. RECOMMENDATIONS: Per above discussion and per orders written in the chart. Thank you for asking me to participate in the care of this patient. Viktoria Chatterjee M.D. DR: YUNG JOB#: [id number] CC:
[2019-08-19 02:41] LABS: AMMONIA 35 umol/L (11-32)
[2019-08-19 02:47] LABS: ALANINE AMINOTRANSFERASE 49 U/L (12-78); ALBUMIN/GLOBULIN RATIO 0.4 (1.0-2.7); ALKALINE PHOSPHATASE 65 U/L (46-116); ANION GAP 8 mmol/L (5-15); ASPARTATE AMINO TRANSFERASE 110 U/L (15-37); BILIRUBIN,TOTAL 1.2 MG/DL (0.2-1.0); BLOOD UREA NITROGEN 9 mg/dL (7-18); CALCIUM 7.9 MG/DL (8.5-10.1); CARBON DIOXIDE 25 MMOL/L (21-32); CHLORIDE 107 MMOL/L (98-107); CREATININE 1.2 MG/DL (0.55-1.30); PHOSPHORUS 2.8 MG/DL (2.5-4.9); POTASSIUM 3.4 MMOL/L (3.5-5.1); SODIUM 140 MMOL/L (136-145)
[2019-08-19] MEDS ORDERED: Vancomycin 1 GM in D5W 275 ML IVPB SCH (03:00)
[2019-08-19 04:00] VITALS: BP 150/81
[2019-08-19 04:01] LABS: BASOPHILS % (AUTO) 1.2 % (0.0-2.0); EOSINOPHILS % (AUTO) 2.4 % (0.0-3.0); HEMOGLOBIN 11.3 G/DL (14.2-18.0); LYMPHOCYTES % (AUTO) 26.2 % (20.0-45.0); MEAN CORPUSCULAR VOLUME 95 FL (80-99); MONOCYTES % (AUTO) 12.8 % (1.0-10.0); NEUTROPHILS % (AUTO) 57.4 % (45.0-75.0); PLATELET COUNT 141 K/UL (150-450); RED BLOOD COUNT 3.49 M/UL (4.70-6.10); RED CELL DISTRIBUTION WIDTH 11.5 % (11.6-14.8); WHITE BLOOD COUNT 7.6 K/UL (4.8-10.8)
[2019-08-19 04:13] LABS: BILIRUBIN,DIRECT 0.8 MG/DL (0.0-0.3)
[2019-08-19] MEDS: Vancomycin 1 GM in D5W 275 ML IVPB SCH ×2 (05:05→17:07)
[2019-08-19] MEDS: HydrALAZINE 50mg tab ORAL SCH ×3 (06:00→22:11)
--- NOTE | 2019-08-19 06:09 | Consultation ---
History of Present Illness General Chief Complaint: Lower Extremity Injury Referring physician: Dr. Arauz Reason for Consultation: Pain Management Present Illness Allergies: Coded Allergies: PENICILLINS (Verified Allergy, Unknown, 02/10/17) Uncoded Allergies: PENICILLIN (Allergy, Unknown, 05/15/19) Medication History Scheduled Hydralazine Hcl* (Hydralazine Hcl*), 50 MG ORAL EVERY 8 HOURS, (Reported) Metoprolol Tartrate* (Metoprolol Tartrate*), 25 MG ORAL EVERY 12 HOURS, ( Reported) Discontinued Medications Amlodipine Besylate (Norvasc), 5 MG ORAL BID Discontinued Reason: Therapy completed Atenolol* (Tenormin*), 25 MG ORAL DAILY Discontinued Reason: Therapy completed Gabapentin* (Gabapentin*), 100 MG ORAL THREE TIMES A DAY Discontinued Reason: Therapy completed Hydrochlorothiazide (Hydrochlorothiazide), 12.5 MG ORAL DAILY Discontinued Reason: Therapy completed Ibuprofen* (Motrin*), 600 MG ORAL THREE TIMES A DAY Discontinued Reason: Therapy completed Irbesartan* (Avapro*), 150 MG ORAL DAILY Discontinued Reason: Therapy completed Lactulose (Lactulose*), 10 GM ORAL THREE TIMES A DAY Discontinued Reason: Therapy completed Pantoprazole* (Protonix*), 40 MG ORAL DAILY Discontinued Reason: Therapy completed Pantoprazole* (Protonix*), 40 MG ORAL DAILY, (Reported) Discontinued Reason: Therapy completed Rifaximin* (Xifaxan*), 550 MG ORAL EVERY 12 HOURS Discontinued Reason: Therapy completed Unable to Obtain Medications (Unable To Obtain Meds), (Reported) Discontinued Reason: Therapy completed Vancomycin/Water For Inj (Vancomycin 1.5 Gram/300 ml Bag), 1.25 GM IV, (Reported ) Discontinued Reason: Therapy completed [misc], UNIT, (DME) Discontinued Reason: Therapy completed Patient History Healthcare decision maker Resuscitation status Full Code Advanced Directive on File Physical Exam Last 24 Hour Vital Signs Date Time Temp Pulse Resp B/P (MAP) Pulse Ox O2 Delivery O2 Flow Rate FiO2 08/19/19 04:00 Nasal Cannula 2.0 08/19/19 04:00 97 08/19/19 00:00 98.7 92 24 157/87 (110) 98 08/19/19 00:00 Nasal Cannula 2.0 08/19/19 00:00 87 08/18/19 22:29 168/85 08/18/19 21:35 91 164/83 08/18/19 20:00 97 08/18/19 20:00 Nasal Cannula 2.0 08/18/19 20:00 99.0 94 24 148/69 (95) 99 08/18/19 18:03 99 08/18/19 17:00 88 24 147/73 (97) 99 08/18/19 16:00 92 08/18/19 16:00 Nasal Cannula 2.0 08/18/19 16:00 98.6 97 27 151/83 (105) 98 08/18/19 15:00 89 34 159/84 (109) 98 08/18/19 14:23 147/71 08/18/19 14:00 89 37 147/71 (96) 98 08/18/19 13:00 97 33 149/92 (111) 99 08/18/19 12:00 Nasal Cannula 2.0 08/18/19 12:00 98.7 97 39 145/75 (98) 98 08/18/19 12:00 98 08/18/19 11:00 89 23 149/71 (97) 99 08/18/19 10:14 157/80 08/18/19 10:00 85 25 157/80 (105) 99 08/18/19 09:55 83 157/80 08/18/19 09:00 83 25 152/74 (100) 99 08/18/19 08:36 89 157/74 08/18/19 08:15 Nasal Cannula 2.0 08/18/19 08:00 98.9 87 26 157/74 (101) 99 08/18/19 08:00 87 08/18/19 07:00 86 17 152/83 (106) 98 Intake and Output 08/18/19 08/19/19 18:59 06:59 Intake Total 1754.500 ml 120 ml Output Total 816 ml 60 ml Balance 938.500 ml 60 ml Intake Oral 90 ml 70 ml IV Total 1664.500 ml 50 ml Output Urine Total 815 ml 60 ml Stool Total 1 ml # Bowel Movements 1 Laboratory Tests Test 08/19/19 02:11 White Blood Count 7.6 K/UL (4.8-10.8) Red Blood Count 3.49 M/UL (4.70-6.10) L Hemoglobin 11.3 G/DL (14.2-18.0) L Hematocrit 33.0 % (42.0-52.0) L Mean Corpuscular Volume 95 FL (80-99) Mean Corpuscular Hemoglobin 32.4 PG (27.0-31.0) H Mean Corpuscular Hemoglobin Concent 34.3 G/DL (32.0-36.0) Red Cell Distribution Width 11.5 % (11.6-14.8) L Platelet Count 141 K/UL (150-450) L Mean Platelet Volume 5.9 FL (6.5-10.1) L Neutrophils (%) (Auto) 57.4 % (45.0-75.0) Lymphocytes (%) (Auto) 26.2 % (20.0-45.0) Monocytes (%) (Auto) 12.8 % (1.0-10.0) H Eosinophils (%) (Auto) 2.4 % (0.0-3.0) Basophils (%) (Auto) 1.2 % (0.0-2.0) Sodium Level 140 MMOL/L (136-145) Potassium Level 3.4 MMOL/L (3.5-5.1) L Chloride Level 107 MMOL/L (98-107) Carbon Dioxide Level 25 MMOL/L (21-32) Anion Gap 8 mmol/L (5-15) Blood Urea Nitrogen 9 mg/dL (7-18) Creatinine 1.2 MG/DL (0.55-1.30) Estimat Glomerular Filtration Rate > 60 mL/min (>60) Glucose Level 139 MG/DL (74-106) H Calcium Level 7.9 MG/DL (8.5-10.1) L Phosphorus Level 2.8 MG/DL (2.5-4.9) Magnesium Level 1.8 MG/DL (1.8-2.4) Total Bilirubin 1.2 MG/DL (0.2-1.0) H Direct Bilirubin 0.8 MG/DL (0.0-0.3) H Aspartate Amino Transf (AST/SGOT) 110 U/L (15-37) H Alanine Aminotransferase (ALT/SGPT) 49 U/L (12-78) Alkaline Phosphatase 65 U/L (46-116) Ammonia 35 umol/L (11-32) H Troponin I 0.056 ng/mL (0.000-0.056) C-Reactive Protein, Quantitative 2.0 mg/dL (0.00-0.90) H Pro-B-Type Natriuretic Peptide 2731 pg/mL (0-125) H Total Protein 7.4 G/DL (6.4-8.2) Albumin 2.0 G/DL (3.4-5.0) L Globulin 5.4 g/dL Albumin/Globulin Ratio 0.4 (1.0-2.7) L Alpha Fetoprotein Pending Vancomycin Level Trough 12.4 ug/mL (5.0-12.0) H Height (Feet): 6 Height (Inches): 1.00 Weight (Pounds): 220 Medications Current Medications Medications (Trade) Dose Ordered Sig/Sharla Route PRN Reason Start Time Stop Time Status Last Admin Dose Admin Amlodipine Besylate (Norvasc) 5 mg DAILY ORAL 08/19/19 09:00 09/17/19 08:59 Chlorhexidine Gluconate (Chastity-Hex 2%) 1 applic DAILY@2000 TOPIC 08/18/19 20:00 09/17/19 19:59 08/18/19 20:40 Dextrose/Sodium Chloride 1,000 ml @ 50 mls/hr Q20H IV 08/18/19 19:00 09/16/19 18:59 08/18/19 20:40 Hydralazine HCl (Apresoline) 50 mg EVERY 8 HOURS ORAL 08/18/19 22:00 09/16/19 21:59 08/18/19 22:29 Metoprolol Tartrate (Lopressor) 25 mg EVERY 12 HOURS ORAL 08/18/19 21:00 09/16/19 20:59 08/18/19 21:35 Morphine Sulfate (Morphine Sulfate) 2 mg Q4H PRN IVP severe pain 08/18/19 18:30 08/24/19 14:26 Nitroglycerin (Ntg) 1 patch Q24H TDERMAL 08/19/19 09:00 09/17/19 08:59 Pantoprazole (Protonix) 40 mg DAILY ORAL 08/19/19 09:00 09/18/19 08:59 Thiamine HCl 100 mg/Dextrose 56 ml @ 112 mls/hr Q24H IVPB 08/19/19 16:00 09/16/19 15:59 Vancomycin HCl (Vanco rx to dose) 1 ea DAILY PRN MISC Per rx protocol 08/18/19 18:30 09/17/19 18:29 Vancomycin HCl 1 gm/Dextrose 275 ml @ 183.708 mls/hr Q12HR@0500,1700 IVPB 08/19/19 05:00 08/24/19 04:59 08/19/19 05:05 Assessment/Plan Assessment/Plan: Hematology Consultation RFC: Coagulopathy in setting o of brain bleed Chief Complaint: Lower Extremity Injury DOS 08/19/19 REQ MD: Esthela Holder HPI 63-year-old male presents ED for evaluation. Brought in by EMS from [address]. Complaining of leg pain. Patient has left leg in a cast. Right leg has dressings on it. History of osteomyelitis in the past. Patient is providing limited history at this time. Moaning in pain 10 out of 10, dull, nonradiating. Tachycardic. Denies chest pain or shortness of breath. No other aggravating relieving factors. Denies any other associated symptoms. On ct brain, has a brain bleed,neuro is aware, heme consulted for eval and rx, vit k given, mental status unchanged, is confused by a+o x3, pending trans to [facility]. Coded Allergies: PENICILLINS (Verified Allergy, Unknown, 02/10/17) UNABLE TO ASSESS (Unverified , 03/01/18) Uncoded Allergies: PENICILLIN (Allergy, Unknown, 05/15/19) Patient History Past Medical History: DM, HTN, CVA/TIA Social History: Denies: smoking, alcohol use, drug use Immunizations: UTD Reviewed Nursing Documentation: PMH: Agreed; PSxH: Agreed Nursing Documentation-PMH Past Medical History: No History, Except For Hx Cardiac Problems: Yes Hx Hypertension: Yes Hx Diabetes: Yes Hx Cancer: No Hx Gastrointestinal Problems: No Hx Neurological Problems: No Hx Cerebrovascular Accident: Yes Hx Transient Ischemic Attacks: No Hx Dementia: No Hx Alzheimer's Disease: No Hx Seizures: No Hx Epilepsy: No Hx Paralysis: No Hx Peripheral Neuropathy: Yes Hx Head Trauma: Yes Hx Traumatic Brain Injury: No Hx Speech Problem: Yes - Slurring d/t CVA Hx Dizziness: No Hx Headaches: Yes Hx Numbness: No Hx Weakness: No Hx Neurologic Surgery: No Hx Brain Shunt: No ROS is otherwise negative except he is somewhat confused PE General: alert, mild distress, other - disheveled Neck: normal inspection Respiratory: chest non-tender, lungs clear, normal breath sounds Cardiovascular: tachycardia Gastrointestinal: normal bowel sounds, non tender, soft, non-distended, no guarding, no rebound Genitourinary: no CVA tenderness Musculoskeletal: tender - L ankle swelling Neurologic: alert, motor strength/tone normal, sensory intact, speech normal, other - moaning. agitated Skin: other - erythema/weeping skin LLE. ulceration noted Labs: reviewed Imaging: noted Assessment and Recs: # Intracranial bleed - 17 x 6 x 8 mm acute to subacute hematoma in the left upper thalamus/morales radiata. Little to no edema or mass effect associated with this. --> has been seen by neuro, plan to transfer to [facility] --> correct plt, hgb as well as inr as needed --> has been given vit K 10mg iv or sq is okay --> monitor for bleed, if persists consider ffp though inr is 1.2-1.3 # Anemia of chronic disease --> anemia panel has been reviewed --> no e/o hemolysis --> currently stable, approx 11 # Thrombocytopenia likely due to chirrhosis --> plt count 124-->141k --> have reviewed, hep C + --> will need outpatient hep C+ management --> afp ordered # Mild atrophy of the brain. 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 Luis M Carlin MD Aug 19, 2019 06:09
[2019-08-19] MEDS ORDERED: Phytonadione 10 MG in D5W 55 ML IVPB ONE ×2 (07:30→08:30)
[2019-08-19 08:00] VITALS: BP 165/88
[2019-08-19] MEDS: Nitroglycerin Patch 0.4mg TDERMAL SCH (08:41)
[2019-08-19] MEDS: Metoprolol 25mg tab ORAL SCH ×2 (08:42→20:57)
--- NOTE | 2019-08-19 09:09 | Infectious Diseases Prog Note ---
Assessment/Plan Assessment/Plan IMPRESSION: 1. Sepsis with fever and tachycardia. 2. Bilateral leg cellulitis. 3. penicillin allergy 4. Intracranial bleeding & hematoma. 5. Liver cirrhosis. 6. Diabetes mellitus with peripheral neuropathy. 7. Hypertension. RECOMMENDATION: Continue with IV vancomycin Add PO Ciprofloxacin . Will f/u leg MRI Subjective ROS Limited/Unobtainable: No Constitutional: Reports: no symptoms, other - transferred from ICU to step down Respiratory: Reports: no symptoms Cardiovascular: Reports: no symptoms Gastrointestinal/Abdominal: Reports: no symptoms Genitourinary: Reports: no symptoms Allergies: Coded Allergies: PENICILLINS (Verified Allergy, Unknown, 02/10/17) Uncoded Allergies: PENICILLIN (Allergy, Unknown, 05/15/19) Objective Vital Signs Last 24 Hour Vital Signs Date Time Temp Pulse Resp B/P (MAP) Pulse Ox O2 Delivery O2 Flow Rate FiO2 08/19/19 08:42 74 165/88 08/19/19 08:42 74 165/88 08/19/19 08:41 165/88 08/19/19 08:00 Nasal Cannula 2.0 08/19/19 08:00 99.4 74 20 165/88 (113) 96 08/19/19 06:00 139/71 08/19/19 04:00 99.6 83 20 150/81 (104) 96 08/19/19 04:00 Nasal Cannula 2.0 08/19/19 04:00 97 08/19/19 00:00 98.7 92 24 157/87 (110) 98 08/19/19 00:00 Nasal Cannula 2.0 08/19/19 00:00 87 08/18/19 22:29 168/85 08/18/19 21:35 91 164/83 08/18/19 20:00 97 08/18/19 20:00 Nasal Cannula 2.0 08/18/19 20:00 99.0 94 24 148/69 (95) 99 08/18/19 18:03 99 08/18/19 17:00 88 24 147/73 (97) 99 08/18/19 16:00 92 08/18/19 16:00 Nasal Cannula 2.0 08/18/19 16:00 98.6 97 27 151/83 (105) 98 08/18/19 15:00 89 34 159/84 (109) 98 08/18/19 14:23 147/71 11/14/19 14:00 89 37 147/71 (96) 98 08/18/19 13:00 97 33 149/92 (111) 99 08/18/19 12:00 Nasal Cannula 2.0 08/18/19 12:00 98.7 97 39 145/75 (98) 98 08/18/19 12:00 98 08/18/19 11:00 89 23 149/71 (97) 99 08/18/19 10:14 157/80 08/18/19 10:00 85 25 157/80 (105) 99 08/18/19 09:55 83 157/80 Height (Feet): 6 Height (Inches): 1.00 Weight (Pounds): 224 General Appearance: no acute distress HEENT: mucous membranes moist Respiratory/Chest: lungs clear Cardiovascular: normal rate Abdomen: soft, non tender Extremities: other - edema of legs Skin: ulcers Neurologic/Psychiatric: alert, responsive Microbiology Date/Time Source Procedure Growth Status 08/16/19 21:00 Blood Blood Culture - Preliminary NO GROWTH AFTER 48 HOURS Resulted 08/16/19 20:45 Blood Blood Culture - Preliminary NO GROWTH AFTER 48 HOURS Resulted 08/16/19 20:45 Rectum - Final NO CARBAPENEM-RESISTANT ENTEROBACTERI... Complete 08/16/19 20:45 Rectum VRE Culture - Final Enterococcus Faecium - Vre Complete 08/16/19 20:45 Leg Right Gram Stain - Final Complete 08/16/19 20:45 Wound Culture - Final Klebsiella Oxytoca Pseudomonas Aeruginosa Staphylococcus Sp Coag Neg Complete Laboratory Tests Test 08/19/19 02:11 White Blood Count 7.6 K/UL (4.8-10.8) Red Blood Count 3.49 M/UL (4.70-6.10) L Hemoglobin 11.3 G/DL (14.2-18.0) L Hematocrit 33.0 % (42.0-52.0) L Mean Corpuscular Volume 95 FL (80-99) Mean Corpuscular Hemoglobin 32.4 PG (27.0-31.0) H Mean Corpuscular Hemoglobin Concent 34.3 G/DL (32.0-36.0) Red Cell Distribution Width 11.5 % (11.6-14.8) L Platelet Count 141 K/UL (150-450) L Mean Platelet Volume 5.9 FL (6.5-10.1) L Neutrophils (%) (Auto) 57.4 % (45.0-75.0) Lymphocytes (%) (Auto) 26.2 % (20.0-45.0) Monocytes (%) (Auto) 12.8 % (1.0-10.0) H Eosinophils (%) (Auto) 2.4 % (0.0-3.0) Basophils (%) (Auto) 1.2 % (0.0-2.0) Sodium Level 140 MMOL/L (136-145) Potassium Level 3.4 MMOL/L (3.5-5.1) L Chloride Level 107 MMOL/L (98-107) Carbon Dioxide Level 25 MMOL/L (21-32) Anion Gap 8 mmol/L (5-15) Blood Urea Nitrogen 9 mg/dL (7-18) Creatinine 1.2 MG/DL (0.55-1.30) Estimat Glomerular Filtration Rate > 60 mL/min (>60) Glucose Level 139 MG/DL (74-106) H Calcium Level 7.9 MG/DL (8.5-10.1) L Phosphorus Level 2.8 MG/DL (2.5-4.9) Magnesium Level 1.8 MG/DL (1.8-2.4) Total Bilirubin 1.2 MG/DL (0.2-1.0) H Direct Bilirubin 0.8 MG/DL (0.0-0.3) H Aspartate Amino Transf (AST/SGOT) 110 U/L (15-37) H Alanine Aminotransferase (ALT/SGPT) 49 U/L (12-78) Alkaline Phosphatase 65 U/L (46-116) Ammonia 35 umol/L (11-32) H Troponin I 0.056 ng/mL (0.000-0.056) C-Reactive Protein, Quantitative 2.0 mg/dL (0.00-0.90) H Pro-B-Type Natriuretic Peptide 2731 pg/mL (0-125) H Total Protein 7.4 G/DL (6.4-8.2) Albumin 2.0 G/DL (3.4-5.0) L Globulin 5.4 g/dL Albumin/Globulin Ratio 0.4 (1.0-2.7) L Alpha Fetoprotein Pending Vancomycin Level Trough 12.4 ug/mL (5.0-12.0) H Current Medications Medications (Trade) Dose Ordered Sig/Sharla Route PRN Reason Start Time Stop Time Status Last Admin Dose Admin Amlodipine Besylate (Norvasc) 5 mg DAILY ORAL 08/19/19 09:00 09/17/19 08:59 08/19/19 08:42 Chlorhexidine Gluconate (Chastity-Hex 2%) 1 applic DAILY@2000 TOPIC 08/18/19 20:00 09/17/19 19:59 08/18/19 20:40 Dextrose/Sodium Chloride 1,000 ml @ 50 mls/hr Q20H IV 08/18/19 19:00 09/16/19 18:59 08/18/19 20:40 Hydralazine HCl (Apresoline) 50 mg EVERY 8 HOURS ORAL 08/18/19 22:00 09/16/19 21:59 08/18/19 22:29 Metoprolol Tartrate (Lopressor) 25 mg EVERY 12 HOURS ORAL 08/18/19 21:00 09/16/19 20:59 08/19/19 08:42 Morphine Sulfate (Morphine Sulfate) 2 mg Q4H PRN IVP severe pain 08/18/19 18:30 08/24/19 14:26 Nitroglycerin (Ntg) 1 patch Q24H TDERMAL 08/19/19 09:00 09/17/19 08:59 08/19/19 08:41 Pantoprazole (Protonix) 40 mg DAILY ORAL 08/19/19 09:00 09/18/19 08:59 08/19/19 08:42 Potassium Chloride (K-Dur) 40 meq DAILY ORAL 08/19/19 09:00 09/18/19 08:59 08/19/19 08:39 Thiamine HCl 100 mg/Dextrose 56 ml @ 112 mls/hr Q24H IVPB 08/19/19 16:00 09/16/19 15:59 Vancomycin HCl (Vanco rx to dose) 1 ea DAILY PRN MISC Per rx protocol 08/18/19 18:30 09/17/19 18:29 Vancomycin HCl 1 gm/Dextrose 275 ml @ 183.708 mls/hr Q12HR@0500,1700 IVPB 08/19/19 05:00 08/24/19 04:59 08/19/19 05:05 Edis Irving MD Aug 19, 2019 09:09
--- NOTE | 2019-08-19 09:38 | General Progress Note ---
Assessment/Plan Assessment/Plan: (1) B/L LE pain (2) Left tibia fracture (3) Right non healing ulcer (4) Peripheral Neuropathy (5) Cocaine abuse Patient will be continued on Morphine. D/w Dr. Romano and he concurred. Subjective Date patient seen: Aug 19, 2019 Time patient seen: 09:15 - am Allergies: Coded Allergies: PENICILLINS (Verified Allergy, Unknown, 02/10/17) Uncoded Allergies: PENICILLIN (Allergy, Unknown, 05/15/19) Subjective Constitutional: Reports: weakness HEENT: Reports: no symptoms Cardiovascular: Reports: no symptoms Respiratory: Reports: no symptoms Gastrointestinal/Abdominal: Reports: no symptoms Genitourinary: Reports: no symptoms Neurologic/Psychiatric: Reports: weakness Endocrine: Reports: no symptoms Hematologic/Lymphatic: Reports: no symptoms Subjective Patient was transferred to [facility]. He denies pain and has not request the Morphine in the last 24hrs. no new complaints at this time. Objective Last 24 Hour Vital Signs Date Time Temp Pulse Resp B/P (MAP) Pulse Ox O2 Delivery O2 Flow Rate FiO2 08/19/19 08:42 74 165/88 08/19/19 08:42 74 165/88 08/19/19 08:41 165/88 08/19/19 08:00 Nasal Cannula 2.0 08/19/19 08:00 99.4 74 20 165/88 (113) 96 08/19/19 06:00 139/71 08/19/19 04:00 99.6 83 20 150/81 (104) 96 08/19/19 04:00 Nasal Cannula 2.0 08/19/19 04:00 97 08/19/19 00:00 98.7 92 24 157/87 (110) 98 08/19/19 00:00 Nasal Cannula 2.0 08/19/19 00:00 87 08/18/19 22:29 168/85 08/18/19 21:35 91 164/83 08/18/19 20:00 97 08/18/19 20:00 Nasal Cannula 2.0 08/18/19 20:00 99.0 94 24 148/69 (95) 99 08/18/19 18:03 99 08/18/19 17:00 88 24 147/73 (97) 99 08/18/19 16:00 92 08/18/19 16:00 Nasal Cannula 2.0 08/18/19 16:00 98.6 97 27 151/83 (105) 98 08/18/19 15:00 89 34 159/84 (109) 98 08/18/19 14:23 147/71 08/18/19 14:00 89 37 147/71 (96) 98 08/18/19 13:00 97 33 149/92 (111) 99 08/18/19 12:00 Nasal Cannula 2.0 08/18/19 12:00 98.7 97 39 145/75 (98) 98 08/18/19 12:00 98 08/18/19 11:00 89 23 149/71 (97) 99 08/18/19 10:14 157/80 08/18/19 10:00 85 25 157/80 (105) 99 08/18/19 09:55 83 157/80 Intake and Output 08/18/19 08/19/19 18:59 06:59 Intake Total 1754.500 ml 857.493 ml Output Total 816 ml 561 ml Balance 938.500 ml 296.493 ml Intake Oral 90 ml 120 ml IV Total 1664.500 ml 737.493 ml Output Urine Total 815 ml 560 ml Stool Total 1 ml 1 ml # Bowel Movements 1 Laboratory Tests 08/19/19 02:11: White Blood Count 7.6, Red Blood Count 3.49L, Hemoglobin 11.3L, Hematocrit 33.0L , Mean Corpuscular Volume 95, Mean Corpuscular Hemoglobin 32.4H, Mean Corpuscular Hemoglobin Concent 34.3, Red Cell Distribution Width 11.5L, Platelet Count 141L, Mean Platelet Volume 5.9L, Neutrophils (%) (Auto) 57.4, Lymphocytes (%) (Auto) 26.2, Monocytes (%) (Auto) 12.8H, Eosinophils (%) (Auto) 2.4, Basophils (%) (Auto) 1.2, Sodium Level 140, Potassium Level 3.4L, Chloride Level 107, Carbon Dioxide Level 25, Anion Gap 8, Blood Urea Nitrogen 9, Creatinine 1.2, Estimat Glomerular Filtration Rate > 60, Glucose Level 139H, Calcium Level 7.9L, Phosphorus Level 2.8, Magnesium Level 1.8, Total Bilirubin 1.2H, Direct Bilirubin 0.8H, Aspartate Amino Transf (AST/SGOT) 110H, Alanine Aminotransferase (ALT/SGPT) 49, Alkaline Phosphatase 65, Ammonia 35H, Troponin I 0.056, C-Reactive Protein, Quantitative 2.0H, Pro-B-Type Natriuretic Peptide 2731H, Total Protein 7.4, Albumin 2.0L, Globulin 5.4, Albumin/Globulin Ratio 0.4L, Alpha Fetoprotein [Pending], Vancomycin Level Trough 12.4H Height (Feet): 6 Height (Inches): 1.00 Weight (Pounds): 224 Objective General Appearance: no apparent distress, confused HEENT: normocephalic Neck: non-tender, supple Respiratory/Chest: decreased breath sounds Abdomen: non tender, soft Extremities: other - left LE in cast, right LE bandages applied Neurologic: alert, responsive Giuliano Liu Aug 19, 2019 09:38
--- NOTE | 2019-08-19 09:39 | Diagnostic Imaging Report ---
Indication: Increased LFTs Technique: Grayscale and duplex Doppler imaging of the abdomen performed. Comparison: None Findings: Liver is a heterogeneous showing coarsened echotexture. CBD is 4.3 mm. The kidneys are unremarkable bilaterally. There is no hydronephrosis. There is a tiny questionable stone in the left kidney seen is a punctate focus of increased echogenicity. No obvious free fluid identified. Spleen is borderline enlarged measuring between 12 and 13 cm. The liver is also mildly enlarged measuring about 18 cm. This may be further evaluated with noncontrast CT. The pancreas is poorly seen. The aorta is also poorly seen. There is flow within the main portal vein by Doppler. There is a questionable nodularity liver surface. Gallbladder shows wall thickening without stones. IMPRESSION: Suspected chronic liver disease with surface nodularity and heterogeneous coarsened echotexture. No ascites. Mild thickening of the gallbladder wall nonspecific. Question of a tiny nonobstructive stone left kidney. Evaluation with CT may be confirmatory.
[2019-08-19] MEDS: Ciprofloxacin 500mg tab ORAL SCH ×2 (10:57→20:57)
--- NOTE | 2019-08-19 11:17 | Nephrology Progress Note ---
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 He has a new left thalamic hematoma, most likely secondary to his hypertensive vascular disease. Neuro: Plan I HAD MD-MD CONVERSATION YESTERDAY WITH LUIS ENRIQUE. I WAS TOLD THAT THE THALAMUS HEMATOMA IS NOT A NEUROSURGICAL OPERATIVE CASE. CAUSE BY HTN AND NEED TO HAVE BP CONTROL AND OBSERVE. DR MARTÍNEZ IS ALSO AGREEABLE tolerating PO Arrange for SNF Hold mind altering meds hydrate neuro eval note antibiotics per consultants / Neuro Nitro Head CT: 17 x 6 x 8 mm acute to subacute hematoma in the left upper thalamus/morales radiata. Little to no edema or mass effect associated with this. Mild atrophy of the brain. Nonspecific white matter hypoattenuation probably due to chronic small vessel disease. Sinusitis Subjective ROS Limited/Unobtainable: No Constitutional: Reports: other - much responsive Objective Objective Last 24 Hour Vital Signs Date Time Temp Pulse Resp B/P (MAP) Pulse Ox O2 Delivery O2 Flow Rate FiO2 08/19/19 08:42 74 165/88 08/19/19 08:42 74 165/88 08/19/19 08:41 165/88 08/19/19 08:00 Nasal Cannula 2.0 08/19/19 08:00 99.4 74 20 165/88 (113) 96 08/19/19 07:29 77 08/19/19 06:00 139/71 08/19/19 04:00 99.6 83 20 150/81 (104) 96 08/19/19 04:00 Nasal Cannula 2.0 08/19/19 04:00 97 08/19/19 00:00 98.7 92 24 157/87 (110) 98 08/19/19 00:00 Nasal Cannula 2.0 08/19/19 00:00 87 08/18/19 22:29 168/85 08/18/19 21:35 91 164/83 08/18/19 20:00 97 08/18/19 20:00 Nasal Cannula 2.0 08/18/19 20:00 99.0 94 24 148/69 (95) 99 08/18/19 18:03 99 08/18/19 17:00 88 24 147/73 (97) 99 08/18/19 16:00 92 08/18/19 16:00 Nasal Cannula 2.0 08/18/19 16:00 98.6 97 27 151/83 (105) 98 08/18/19 15:00 89 34 159/84 (109) 98 08/18/19 14:23 147/71 08/18/19 14:00 89 37 147/71 (96) 98 08/18/19 13:00 97 33 149/92 (111) 99 08/18/19 12:00 Nasal Cannula 2.0 08/18/19 12:00 98.7 97 39 145/75 (98) 98 08/18/19 12:00 98 Intake and Output 08/18/19 08/19/19 19:00 07:00 Intake Total 1799.500 ml 787.493 ml Output Total 826 ml 501 ml Balance 973.500 ml 286.493 ml Intake Oral 160 ml 50 ml IV Total 1639.500 ml 737.493 ml Output Urine Total 825 ml 500 ml Stool Total 1 ml 1 ml # Bowel Movements 1 Laboratory Tests 08/19/19 02:11: White Blood Count 7.6, Red Blood Count 3.49L, Hemoglobin 11.3L, Hematocrit 33.0L , Mean Corpuscular Volume 95, Mean Corpuscular Hemoglobin 32.4H, Mean Corpuscular Hemoglobin Concent 34.3, Red Cell Distribution Width 11.5L, Platelet Count 141L, Mean Platelet Volume 5.9L, Neutrophils (%) (Auto) 57.4, Lymphocytes (%) (Auto) 26.2, Monocytes (%) (Auto) 12.8H, Eosinophils (%) (Auto) 2.4, Basophils (%) (Auto) 1.2, Sodium Level 140, Potassium Level 3.4L, Chloride Level 107, Carbon Dioxide Level 25, Anion Gap 8, Blood Urea Nitrogen 9, Creatinine 1.2, Estimat Glomerular Filtration Rate > 60, Glucose Level 139H, Calcium Level 7.9L, Phosphorus Level 2.8, Magnesium Level 1.8, Total Bilirubin 1.2H, Direct Bilirubin 0.8H, Aspartate Amino Transf (AST/SGOT) 110H, Alanine Aminotransferase (ALT/SGPT) 49, Alkaline Phosphatase 65, Ammonia 35H, Troponin I 0.056, C-Reactive Protein, Quantitative 2.0H, Pro-B-Type Natriuretic Peptide 2731H, Total Protein 7.4, Albumin 2.0L, Globulin 5.4, Albumin/Globulin Ratio 0.4L, Alpha Fetoprotein [Pending], Vancomycin Level Trough 12.4H Height (Feet): 6 Height (Inches): 1.00 Weight (Pounds): 224 General Appearance: no apparent distress Cardiovascular: normal rate Respiratory/Chest: lungs clear Abdomen: soft Extremities: other - no change Neurologic: other Geoffrey Manzano MD Aug 19, 2019 11:17
[2019-08-19 12:00] VITALS: BP 151/89
--- NOTE | 2019-08-19 12:49 | Cardiology Report ---
APPROVED REPORT EXAM: Two-dimensional and M-mode echocardiogram with Doppler and color Doppler. INDICATION Congestive Heart Failure M-Mode DIMENSIONS IVSd0.9 (0.7-1.1cm)Left Atrium (MM)3.3 (1.6-4.0cm) LVDd5.3 (3.5-5.6cm)Aortic Root4.4 (2.0-3.7cm) PWd1.0 (0.7-1.1cm)Aortic Cusp Exc.2.4 (1.5-2.0cm) IVSs1.5 cm LVDs3.1 (2.5-4.0cm) PWs1.0 cm Normal left ventricular chamber size, systolic function and wall motion . Left ventricular ejection fraction estimated to be 60 -65%. No evidence of left ventricular hypertrophy. No evidence of pericardial effusion. All other cardiac chamber sizes are within normal limits. Focal aortic valve sclerosis with adequate cusp excursion. Thickened mitral valve leaflets with normal excursion. Mitral annulus and aortic root calcification. Normal pulmonic valve structure. Normal tricuspid valve structure. IVC dilated at 2.6 cm without physiologic collapse suggestive of increased RA pressure. A color flow and spectral Doppler study was performed and revealed: Trace aortic insufficiency. Trace mitral regurgitation. Mitral diastolic velocities suggest reduced left ventricular relaxation c/w mild LV diastolic dysfunction (Grade I ). Trace tricuspid regurgitation. Tricuspid systolic velocities suggests peak right ventricular systolic pressure of 20 mmHg. Pulmonic regurgitation present.
--- NOTE | 2019-08-19 14:38 | Diagnostic Imaging Report ---
Indication: Right Leg pain. Nonhealing open surgical wounds. There is concern for osteomyelitis. Technique: MRI of the right Tibia/Fibula was imaged in a 1.5 Marj magnet. Pulse sequences obtained include multiplanar T1 fast spin-echo and STIR. [id number]-yi-[id number] includes proximal tibia to just above the ankle. This is the area of clinical interest. Comparison: None Findings: Bone marrow signal is normal throughout the visualized tibia and fibula. There is subcutaneous edema present which is a nonspecific finding and may be related to cellulitis but there are other causes of subcutaneous edema in the leg as well. There is no abscess or fluid collection identified. The posterior and anterior compartments of the leg appear normal in signal and configuration. There is no myositis. There is no evidence of interfascial fluid. IMPRESSION: No evidence of acute osteomyelitis or abscess in the area of clinical concern. Generalized subcutaneous edema which is nonspecific but may be due to cellulitis.
--- NOTE | 2019-08-19 15:23 | Diagnostic Imaging Report ---
Indication: Abdominal pain. Confusion. Elevated LFT, ammonia. Technique: Continuous helical transaxial imaging of the abdomen was obtained from the lung bases to the iliac crests during intravenous contrast administration. Coronal 2-D reformats were also obtained. Study obtained in a Siemens sensation [address] Total Dose length Product (DLP): [address] Dose Index Volume (CTDIvol): 63.6 mGy Comparison: Ultrasound abdomen 08/18/2019 Findings: Trace bilateral pleural effusions are present. Posterior basal atelectasis noted. Triphasic scan of the liver demonstrates no enhancing mass. There is moderate nodularity of the liver surface consistent with cirrhosis. The spleen is not enlarged. There is a trace amount of ascites present. There are increased vessels present surrounding the distal esophagus suspicious for esophageal varices. The portal vein is patent. There is mesenteric stranding and stranding in the subcutaneous fat of the abdominal wall. Small hiatal hernia present. There is thickening of the wall the gallbladder. Mild calcification of aorta demonstrated. Bilateral breast tissue noted. IMPRESSION: Chronic liver disease/cirrhosis with signs of portal hypertension including trace ascites, anasarca, mesenteric edema and portosystemic varices in the distal esophagus. Spleen is normal size. Gynecomastia. Hiatal hernia. Atherosclerotic vascular disease The CT scanner at [facility] is accredited by the [employer] and the scans are performed using protocols designed to limit radiation exposure to as low as reasonably achievable to attain images of sufficient resolution adequate for diagnostic evaluation.
--- NOTE | 2019-08-19 15:27 | Surgery Progress Note ---
Surgery Progress Note Subjective Additional Comments ortho input noted and appreciated exam stable labs noted Objective Last 24 Hour Vital Signs Date Time Temp Pulse Resp B/P (MAP) Pulse Ox O2 Delivery O2 Flow Rate FiO2 08/19/19 14:00 151/89 08/19/19 12:00 Nasal Cannula 2.0 08/19/19 12:00 97.7 81 18 151/89 (109) 98 08/19/19 08:42 74 165/88 08/19/19 08:42 74 165/88 08/19/19 08:41 165/88 08/19/19 08:00 Nasal Cannula 2.0 08/19/19 08:00 99.4 74 20 165/88 (113) 96 08/19/19 07:29 77 08/19/19 06:00 139/71 08/19/19 04:00 99.6 83 20 150/81 (104) 96 08/19/19 04:00 Nasal Cannula 2.0 08/19/19 04:00 97 08/19/19 00:00 98.7 92 24 157/87 (110) 98 08/19/19 00:00 Nasal Cannula 2.0 08/19/19 00:00 87 08/18/19 22:29 168/85 08/18/19 21:35 91 164/83 08/18/19 20:00 97 08/18/19 20:00 Nasal Cannula 2.0 08/18/19 20:00 99.0 94 24 148/69 (95) 99 08/18/19 18:03 99 08/18/19 17:00 88 24 147/73 (97) 99 08/18/19 16:00 92 08/18/19 16:00 Nasal Cannula 2.0 08/18/19 16:00 98.6 97 27 151/83 (105) 98 I&O Intake and Output 08/18/19 08/19/19 19:00 07:00 Intake Total 1799.500 ml 787.493 ml Output Total 826 ml 501 ml Balance 973.500 ml 286.493 ml Intake Oral 160 ml 50 ml IV Total 1639.500 ml 737.493 ml Output Urine Total 825 ml 500 ml Stool Total 1 ml 1 ml # Bowel Movements 1 Dressing: other Wound: other Drains: other Cardiovascular: RSR Respiratory: decreased breath sounds Abdomen: soft, non-distended, decreased bowel sounds Extremities: no cyanosis, other Laboratory Tests Test 08/19/19 02:11 White Blood Count 7.6 K/UL (4.8-10.8) Red Blood Count 3.49 M/UL (4.70-6.10) L Hemoglobin 11.3 G/DL (14.2-18.0) L Hematocrit 33.0 % (42.0-52.0) L Mean Corpuscular Volume 95 FL (80-99) Mean Corpuscular Hemoglobin 32.4 PG (27.0-31.0) H Mean Corpuscular Hemoglobin Concent 34.3 G/DL (32.0-36.0) Red Cell Distribution Width 11.5 % (11.6-14.8) L Platelet Count 141 K/UL (150-450) L Mean Platelet Volume 5.9 FL (6.5-10.1) L Neutrophils (%) (Auto) 57.4 % (45.0-75.0) Lymphocytes (%) (Auto) 26.2 % (20.0-45.0) Monocytes (%) (Auto) 12.8 % (1.0-10.0) H Eosinophils (%) (Auto) 2.4 % (0.0-3.0) Basophils (%) (Auto) 1.2 % (0.0-2.0) Sodium Level 140 MMOL/L (136-145) Potassium Level 3.4 MMOL/L (3.5-5.1) L Chloride Level 107 MMOL/L (98-107) Carbon Dioxide Level 25 MMOL/L (21-32) Anion Gap 8 mmol/L (5-15) Blood Urea Nitrogen 9 mg/dL (7-18) Creatinine 1.2 MG/DL (0.55-1.30) Estimat Glomerular Filtration Rate > 60 mL/min (>60) Glucose Level 139 MG/DL (74-106) H Calcium Level 7.9 MG/DL (8.5-10.1) L Phosphorus Level 2.8 MG/DL (2.5-4.9) Magnesium Level 1.8 MG/DL (1.8-2.4) Total Bilirubin 1.2 MG/DL (0.2-1.0) H Direct Bilirubin 0.8 MG/DL (0.0-0.3) H Aspartate Amino Transf (AST/SGOT) 110 U/L (15-37) H Alanine Aminotransferase (ALT/SGPT) 49 U/L (12-78) Alkaline Phosphatase 65 U/L (46-116) Ammonia 35 umol/L (11-32) H Troponin I 0.056 ng/mL (0.000-0.056) C-Reactive Protein, Quantitative 2.0 mg/dL (0.00-0.90) H Pro-B-Type Natriuretic Peptide 2731 pg/mL (0-125) H Total Protein 7.4 G/DL (6.4-8.2) Albumin 2.0 G/DL (3.4-5.0) L Globulin 5.4 g/dL Albumin/Globulin Ratio 0.4 (1.0-2.7) L Alpha Fetoprotein Pending Vancomycin Level Trough 12.4 ug/mL (5.0-12.0) H Plan Problems: (1) 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 Wounds Right lower ext are malodorous. Irregular shaped ulcers with fibrinous slough vaibhav, medial and posterior R tibia,wounds oozing seropurulent exudate.Surrounding Xerosis skin noted. Large ulcer noted to dorsal R foot. Fibrinous slough at base of wound with macerated borders. Ulcers dorsal and web space of R 1st metatarsal oozing serosanguineous exudate. Small amt sanguineous exudate noted. R heel boggy,tender when palpated. RLE and R foot thoroughly washed ,gently scrubbed and moisturized to remove thick scaly skin. Post cleansing wounds are still malodorous. Pt stated he had wounds for considerable time but denied ever seeking medical attention for wounds. No other skin concerns noted.Pt has Splint L lower ext. Tx.Plan: Cleanse wounds RLE and R foot with Dakin's 0.125% solution. Apply TheraHoney. Cover each wound with Maxsorb Extra(Calcium Alginate) Apply Abd Pads and wrap with Kerlix from base of toes to below knee. Elevate leg on pillows. Reposition at least every 2hours or as tolerated. (2) Fracture of distal end of left tibia Assessment & Plan: No acute fracture, malalignment, or periosteal reaction are identified. Soft tissues are unremarkable. The AP or frontal projection is limited by the presence of a posterior splint. Impression: No obvious acute injury. (3) Osteomyelitis of foot, right, acute Assessment & Plan: No acute fracture, malalignment, or periosteal reaction are identified. Soft tissues are unremarkable. The AP or frontal projection is limited by the presence of a posterior splint. Impression: No obvious acute injury. No evidence of acute osteomyelitis or abscess in the area of clinical concern. Generalized subcutaneous edema which is nonspecific but may be due to cellulitis. (4) Cellulitis Assessment & Plan: as above abx as per ID (5) Abnormal LFTs Assessment & Plan: hx of liver insufficiency / disease lft's mildly elevated Suspected chronic liver disease with surface nodularity and heterogeneous coarsened echotexture. No ascites. Mild thickening of the gallbladder wall nonspecific. Chronic liver disease/cirrhosis with signs of portal hypertension including trace ascites, anasarca, mesenteric edema and portosystemic varices in the distal esophagus. Spleen is normal size. will follow with recs trends labs Patrick Ga Aug 19, 2019 15:27
--- NOTE | 2019-08-19 15:50 | Cardiology Report ---
APPROVED REPORT EKG Measurement Heart [id number] CT 126P65 [id number] Sinus tachycardia Left ventricular hypertrophy with repolarization abnormality Cannot rule out Septal infarct, age undetermined Abnormal ECG
[2019-08-19 16:00] VITALS: BP 160/94
[2019-08-19] MEDS ORDERED: Thiamine HCl 100 MG in D5W 55 ML IVPB SCH (16:00)
[2019-08-19 20:00] VITALS: BP 152/91
[2019-08-19] MEDS: Dyna-Hex 2% Top Sol 2oz TOPIC SCH (20:07)
[2019-08-19] MEDS: Morphine Sulfate 2mg/ml Inj(IV/IM USE ONLY) IVP PRN (21:01)
--- NOTE | 2019-08-19 22:13 | General Progress Note ---
Assessment/Plan Problem List: (1) Anemia ICD Codes: D64.9 - Anemia, unspecified SNOMED: 981816579 (2) Cellulitis ICD Codes: L03.90 - Cellulitis, unspecified SNOMED: 725511471 (3) Liver cirrhosis ICD Codes: K74.60 - Unspecified cirrhosis of liver SNOMED: 96338902 Qualifiers: Qualified Codes: K74.60 - Unspecified cirrhosis of liver (4) Drug abuse ICD Codes: F19.10 - Other psychoactive substance abuse, uncomplicated SNOMED: 50381666 (5) Peripheral neuropathy ICD Codes: G62.9 - Polyneuropathy, unspecified SNOMED: 921566182 Qualifiers: Qualified Codes: G62.9 - Polyneuropathy, unspecified (6) Fracture of distal end of left tibia ICD Codes: S82.302A - Unspecified fracture of lower end of left tibia, initial encounter for closed fracture SNOMED: 459390958 Qualifiers: Qualified Codes: S82.302A - Unspecified fracture of lower end of left tibia , initial encounter for closed fracture (7) Hepatitis C ICD Codes: B19.20 - Unspecified viral hepatitis C without hepatic coma SNOMED: 67470692 (8) Hepatic encephalopathy ICD Codes: K72.90 - Hepatic failure, unspecified without coma SNOMED: 22228716 (9) Coagulopathy ICD Codes: D68.9 - Coagulation defect, unspecified SNOMED: 04876105 (10) Sepsis ICD Codes: A41.9 - Sepsis, unspecified organism SNOMED: 58935815 (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 (12) Abnormal LFTs ICD Codes: R94.5 - Abnormal results of liver function studies SNOMED: 992296191 Status: progressing Assessment/Plan: intracranial hemorrhge was cleared by dr barrios to go to [facility] polysubstance abuse hepatic encephalopathy coagulapathy etoh cirohsis more alert sepsis abx per id Subjective ROS Limited/Unobtainable: Yes Allergies: Coded Allergies: PENICILLINS (Verified Allergy, Unknown, 02/10/17) Uncoded Allergies: PENICILLIN (Allergy, Unknown, 05/15/19) Objective Last 24 Hour Vital Signs Date Time Temp Pulse Resp B/P (MAP) Pulse Ox O2 Delivery O2 Flow Rate FiO2 08/19/19 22:11 153/83 08/19/19 20:57 68 152/91 08/19/19 20:00 98.8 68 20 152/91 (111) 99 08/19/19 16:00 Nasal Cannula 2.0 08/19/19 16:00 98.2 81 17 160/94 (116) 97 08/19/19 15:22 78 08/19/19 14:00 151/89 08/19/19 12:00 Nasal Cannula 2.0 08/19/19 12:00 97.7 81 18 151/89 (109) 98 08/19/19 12:00 82 08/19/19 08:42 74 165/88 08/19/19 08:42 74 165/88 08/19/19 08:41 165/88 08/19/19 08:00 Nasal Cannula 2.0 08/19/19 08:00 99.4 74 20 165/88 (113) 96 08/19/19 07:29 77 08/19/19 06:00 139/71 08/19/19 04:00 99.6 83 20 150/81 (104) 96 08/19/19 04:00 Nasal Cannula 2.0 08/19/19 04:00 97 08/19/19 00:00 98.7 92 24 157/87 (110) 98 08/19/19 00:00 Nasal Cannula 2.0 08/19/19 00:00 87 08/18/19 22:29 168/85 Intake and Output 08/18/19 08/19/19 19:00 07:00 Intake Total 1799.500 ml 787.493 ml Output Total 826 ml 501 ml Balance 973.500 ml 286.493 ml Intake Oral 160 ml 50 ml IV Total 1639.500 ml 737.493 ml Output Urine Total 825 ml 500 ml Stool Total 1 ml 1 ml # Bowel Movements 1 Laboratory Tests 08/19/19 02:11: White Blood Count 7.6, Red Blood Count 3.49L, Hemoglobin 11.3L, Hematocrit 33.0L , Mean Corpuscular Volume 95, Mean Corpuscular Hemoglobin 32.4H, Mean Corpuscular Hemoglobin Concent 34.3, Red Cell Distribution Width 11.5L, Platelet Count 141L, Mean Platelet Volume 5.9L, Neutrophils (%) (Auto) 57.4, Lymphocytes (%) (Auto) 26.2, Monocytes (%) (Auto) 12.8H, Eosinophils (%) (Auto) 2.4, Basophils (%) (Auto) 1.2, Sodium Level 140, Potassium Level 3.4L, Chloride Level 107, Carbon Dioxide Level 25, Anion Gap 8, Blood Urea Nitrogen 9, Creatinine 1.2, Estimat Glomerular Filtration Rate > 60, Glucose Level 139H, Calcium Level 7.9L, Phosphorus Level 2.8, Magnesium Level 1.8, Total Bilirubin 1.2H, Direct Bilirubin 0.8H, Aspartate Amino Transf (AST/SGOT) 110H, Alanine Aminotransferase (ALT/SGPT) 49, Alkaline Phosphatase 65, Ammonia 35H, Troponin I 0.056, C-Reactive Protein, Quantitative 2.0H, Pro-B-Type Natriuretic Peptide 2731H, Total Protein 7.4, Albumin 2.0L, Globulin 5.4, Albumin/Globulin Ratio 0.4L, Alpha Fetoprotein [Pending], Vancomycin Level Trough 12.4H Height (Feet): 6 Height (Inches): 1.00 Weight (Pounds): 224 EENT: PERRL/EOMI Cardiovascular: normal rate Respiratory/Chest: lungs clear Esthela Arauz MD Aug 19, 2019 22:13
--- NOTE | 2019-08-19 23:23 | General Progress Note ---
Assessment/Plan Status: progressing Assessment/Plan: Assessment - intracrainial bleed - cirrhosis per imaging - Hepatitis C - Hiatal hernia - LE edema - Anemia - minimally elevated NH3 - suspect incidental Recommendations - po as tolerated - neuro exams - outpatient HCV eradication Subjective Allergies: Coded Allergies: PENICILLINS (Verified Allergy, Unknown, 02/10/17) Uncoded Allergies: PENICILLIN (Allergy, Unknown, 05/15/19) Subjective Seen this am eating OK no abd complaints Cirrhosis noted on CT Hepatitis C positive Objective Last 24 Hour Vital Signs Date Time Temp Pulse Resp B/P (MAP) Pulse Ox O2 Delivery O2 Flow Rate FiO2 08/19/19 22:11 153/83 08/19/19 20:57 68 152/91 08/19/19 20:00 98.8 68 20 152/91 (111) 99 08/19/19 20:00 86 08/19/19 20:00 Nasal Cannula 2.0 08/19/19 16:00 Nasal Cannula 2.0 08/19/19 16:00 98.2 81 17 160/94 (116) 97 08/19/19 15:22 78 08/19/19 14:00 151/89 08/19/19 12:00 Nasal Cannula 2.0 08/19/19 12:00 97.7 81 18 151/89 (109) 98 08/19/19 12:00 82 08/19/19 08:42 74 165/88 08/19/19 08:42 74 165/88 08/19/19 08:41 165/88 08/19/19 08:00 Nasal Cannula 2.0 08/19/19 08:00 99.4 74 20 165/88 (113) 96 08/19/19 07:29 77 08/19/19 06:00 139/71 08/19/19 04:00 99.6 83 20 150/81 (104) 96 08/19/19 04:00 Nasal Cannula 2.0 08/19/19 04:00 97 08/19/19 00:00 98.7 92 24 157/87 (110) 98 08/19/19 00:00 Nasal Cannula 2.0 08/19/19 00:00 87 Intake and Output 08/18/19 08/19/19 19:00 07:00 Intake Total 1799.500 ml 787.493 ml Output Total 826 ml 501 ml Balance 973.500 ml 286.493 ml Intake Oral 160 ml 50 ml IV Total 1639.500 ml 737.493 ml Output Urine Total 825 ml 500 ml Stool Total 1 ml 1 ml # Bowel Movements 1 Laboratory Tests 08/19/19 02:11: White Blood Count 7.6, Red Blood Count 3.49L, Hemoglobin 11.3L, Hematocrit 33.0L , Mean Corpuscular Volume 95, Mean Corpuscular Hemoglobin 32.4H, Mean Corpuscular Hemoglobin Concent 34.3, Red Cell Distribution Width 11.5L, Platelet Count 141L, Mean Platelet Volume 5.9L, Neutrophils (%) (Auto) 57.4, Lymphocytes (%) (Auto) 26.2, Monocytes (%) (Auto) 12.8H, Eosinophils (%) (Auto) 2.4, Basophils (%) (Auto) 1.2, Sodium Level 140, Potassium Level 3.4L, Chloride Level 107, Carbon Dioxide Level 25, Anion Gap 8, Blood Urea Nitrogen 9, Creatinine 1.2, Estimat Glomerular Filtration Rate > 60, Glucose Level 139H, Calcium Level 7.9L, Phosphorus Level 2.8, Magnesium Level 1.8, Total Bilirubin 1.2H, Direct Bilirubin 0.8H, Aspartate Amino Transf (AST/SGOT) 110H, Alanine Aminotransferase (ALT/SGPT) 49, Alkaline Phosphatase 65, Ammonia 35H, Troponin I 0.056, C-Reactive Protein, Quantitative 2.0H, Pro-B-Type Natriuretic Peptide 2731H, Total Protein 7.4, Albumin 2.0L, Globulin 5.4, Albumin/Globulin Ratio 0.4L, Alpha Fetoprotein [Pending], Vancomycin Level Trough 12.4H Height (Feet): 6 Height (Inches): 1.00 Weight (Pounds): 224 Objective WDWN NCAT supple CTA RRR abd soft ND NT no edema Viktoria Chatterjee MD Aug 19, 2019 23:23
[2019-08-20] VITALS: BP 148/91
[2019-08-20 04:00] VITALS: BP 160/80
[2019-08-20] MEDS: Vancomycin 1 GM in D5W 275 ML IVPB SCH ×2 (05:04→17:12)
[2019-08-20] MEDS: HydrALAZINE 50mg tab ORAL SCH ×3 (05:49→22:15)
[2019-08-20 08:00] VITALS: BP 125/75
[2019-08-20] MEDS: Ciprofloxacin 500mg tab ORAL SCH ×2 (08:45→21:01)
[2019-08-20] MEDS: Thiamine 100mg tab ORAL SCH (08:45)
[2019-08-20] MEDS: Nitroglycerin Patch 0.4mg TDERMAL SCH (08:45)
[2019-08-20] MEDS: Metoprolol 25mg tab ORAL SCH (08:49)
[2019-08-20] MEDS: Dakin's 0.125% Soln (Quarter Strength) 16oz TOPIC SCH (08:53)
[2019-08-20 12:00] VITALS: BP 165/92
--- NOTE | 2019-08-20 12:52 | Nephrology Progress Note ---
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 He has a new left thalamic hematoma, most likely secondary to his hypertensive vascular disease. Neuro: Plan I HAD MD-MD CONVERSATION YESTERDAY WITH LUIS ENRIQUE. I WAS TOLD THAT THE THALAMUS HEMATOMA IS NOT A NEUROSURGICAL OPERATIVE CASE. CAUSE BY HTN AND NEED TO HAVE BP CONTROL AND OBSERVE. DR MARTÍNEZ IS ALSO AGREEABLE adjust BP meds- tolerating PO Arrange for SNF Hold mind altering meds hydrate neuro eval note antibiotics per consultants / Neuro Nitro Head CT: 17 x 6 x 8 mm acute to subacute hematoma in the left upper thalamus/morales radiata. Little to no edema or mass effect associated with this. Mild atrophy of the brain. Nonspecific white matter hypoattenuation probably due to chronic small vessel disease. Sinusitis Subjective ROS Limited/Unobtainable: No Constitutional: Reports: other - much alert Objective Objective Last 24 Hour Vital Signs Date Time Temp Pulse Resp B/P (MAP) Pulse Ox O2 Delivery O2 Flow Rate FiO2 08/20/19 12:00 Room Air 08/20/19 12:00 100.0 78 20 165/92 (116) 95 08/20/19 11:36 83 08/20/19 08:49 94 125/75 08/20/19 08:45 125/75 08/20/19 08:00 94 08/20/19 08:00 Room Air 08/20/19 08:00 98.4 94 20 125/75 (92) 95 08/20/19 05:49 160/80 08/20/19 04:00 98.2 83 20 160/80 (106) 100 08/20/19 04:00 Room Air 08/20/19 04:00 85 08/20/19 00:00 75 08/20/19 00:00 98.2 81 20 148/91 (110) 98 08/20/19 00:00 Nasal Cannula 2.0 08/19/19 22:11 153/83 08/19/19 20:57 68 152/91 08/19/19 20:00 98.8 68 20 152/91 (111) 99 08/19/19 20:00 86 08/19/19 20:00 Nasal Cannula 2.0 08/19/19 16:00 Nasal Cannula 2.0 08/19/19 16:00 98.2 81 17 160/94 (116) 97 08/19/19 15:22 78 08/19/19 14:00 151/89 Intake and Output 08/19/19 08/20/19 18:59 06:59 Intake Total 891.000 ml 395.000 ml Output Total 701 ml 900 ml Balance 190.000 ml -505.000 ml Intake Oral 360 ml 120 ml IV Total 531.000 ml 275.000 ml Output Urine Total 700 ml 900 ml Stool Total 1 ml # Bowel Movements 1 Height (Feet): 6 Height (Inches): 1.00 Weight (Pounds): 229 General Appearance: no apparent distress Cardiovascular: regular rhythm Respiratory/Chest: decreased breath sounds Abdomen: soft Neurologic: other - more alert Geoffrey Manzano MD Aug 20, 2019 12:52
--- NOTE | 2019-08-20 14:21 | Surgery Progress Note ---
Surgery Progress Note Subjective Additional Comments no acute events stable Objective Last 24 Hour Vital Signs Date Time Temp Pulse Resp B/P (MAP) Pulse Ox O2 Delivery O2 Flow Rate FiO2 08/20/19 12:00 Room Air 08/20/19 12:00 100.0 78 20 165/92 (116) 95 08/20/19 11:36 83 08/20/19 08:49 94 125/75 08/20/19 08:45 125/75 08/20/19 08:00 94 08/20/19 08:00 Room Air 08/20/19 08:00 98.4 94 20 125/75 (92) 95 08/20/19 05:49 160/80 08/20/19 04:00 98.2 83 20 160/80 (106) 100 08/20/19 04:00 Room Air 08/20/19 04:00 85 08/20/19 00:00 75 08/20/19 00:00 98.2 81 20 148/91 (110) 98 08/20/19 00:00 Nasal Cannula 2.0 08/19/19 22:11 153/83 08/19/19 20:57 68 152/91 08/19/19 20:00 98.8 68 20 152/91 (111) 99 08/19/19 20:00 86 08/19/19 20:00 Nasal Cannula 2.0 08/19/19 16:00 Nasal Cannula 2.0 08/19/19 16:00 98.2 81 17 160/94 (116) 97 08/19/19 15:22 78 I&O Intake and Output 08/19/19 08/20/19 19:00 07:00 Intake Total 841.000 ml 395.000 ml Output Total 701 ml 900 ml Balance 140.000 ml -505.000 ml Intake Oral 360 ml 120 ml IV Total 481.000 ml 275.000 ml Output Urine Total 700 ml 900 ml Stool Total 1 ml # Bowel Movements 1 Dressing: saturated Wound: other Drains: other Cardiovascular: RSR Respiratory: decreased breath sounds Abdomen: soft, present bowel sounds, non-distended Extremities: edema, tenderness, other Plan Problems: (1) 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 Wounds Right lower ext are malodorous. Irregular shaped ulcers with fibrinous slough vaibhav, medial and posterior R tibia,wounds oozing seropurulent exudate.Surrounding Xerosis skin noted. Large ulcer noted to dorsal R foot. Fibrinous slough at base of wound with macerated borders. Ulcers dorsal and web space of R 1st metatarsal oozing serosanguineous exudate. Small amt sanguineous exudate noted. R heel boggy,tender when palpated. RLE and R foot thoroughly washed ,gently scrubbed and moisturized to remove thick scaly skin. Post cleansing wounds are still malodorous. Pt stated he had wounds for considerable time but denied ever seeking medical attention for wounds. No other skin concerns noted.Pt has Splint L lower ext. Tx.Plan: Cleanse wounds RLE and R foot with Dakin's 0.125% solution. Apply TheraHoney. Cover each wound with Maxsorb Extra(Calcium Alginate) Apply Abd Pads and wrap with Kerlix from base of toes to below knee. Elevate leg on pillows. Reposition at least every 2hours or as tolerated. (2) Fracture of distal end of left tibia Assessment & Plan: No acute fracture, malalignment, or periosteal reaction are identified. Soft tissues are unremarkable. The AP or frontal projection is limited by the presence of a posterior splint. Impression: No obvious acute injury. (3) Osteomyelitis of foot, right, acute Assessment & Plan: No acute fracture, malalignment, or periosteal reaction are identified. Soft tissues are unremarkable. The AP or frontal projection is limited by the presence of a posterior splint. Impression: No obvious acute injury. No evidence of acute osteomyelitis or abscess in the area of clinical concern. Generalized subcutaneous edema which is nonspecific but may be due to cellulitis. (4) Cellulitis Assessment & Plan: as above abx as per ID (5) Abnormal LFTs Assessment & Plan: hx of liver insufficiency / disease lft's mildly elevated Suspected chronic liver disease with surface nodularity and heterogeneous coarsened echotexture. No ascites. Mild thickening of the gallbladder wall nonspecific. Chronic liver disease/cirrhosis with signs of portal hypertension including trace ascites, anasarca, mesenteric edema and portosystemic varices in the distal esophagus. Spleen is normal size. will follow with recs trends labs Patrick Ga Aug 20, 2019 14:21
--- NOTE | 2019-08-20 15:02 | Hematology/Onc Progress Note ---
Assessment/Plan Assessment/Plan Assessment and Recs: # Intracranial bleed - 17 x 6 x 8 mm acute to subacute hematoma in the left upper thalamus/morales radiata. Little to no edema or mass effect associated with this. --> has been seen by neuro, requires better bp care --> correct plt, hgb as well as inr as needed --> has been given vit K 10mg iv or sq is okay --> monitor for bleed, if persists consider ffp though inr is 1.2-1.3 --> BETTER BP control # Anemia of chronic disease --> anemia panel has been reviewed --> no e/o hemolysis --> currently stable, approx 11 # Thrombocytopenia likely due to chirrhosis --> plt count 124-->141k --> have reviewed, hep C + --> will need outpatient hep C+ management --> afp ordered # Mild atrophy of the brain. 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 Subjective Constitutional: Denies: no symptoms, chills, fever, malaise, weakness, other HEENT: Denies: no symptoms, eye pain, blurred vision, tearing, double vision, ear pain, ear discharge, nose pain, nose congestion, throat pain, throat swelling, mouth pain, mouth swelling, other Cardiovascular: Denies: no symptoms, chest pain, edema, irregular heart rate, lightheadedness, palpitations, syncope, other Respiratory: Denies: no symptoms, cough, shortness of breath, SOB with excertion, SOB at rest, sputum, wheezing, other Gastrointestinal/Abdominal: Denies: no symptoms, abdomen distended, abdominal pain, black stools, tarry stools, blood in stool, constipated, diarrhea, difficulty swallowing, nausea, poor appetite, poor fluid intake, rectal bleeding , vomiting, other Genitourinary: Denies: no symptoms, burning, discharge, frequency, flank pain, hematuria, incontinence, pain, urgency, other Neurologic/Psychiatric: Denies: no symptoms, anxiety, depressed, emotional problems, headache, numbness, paresthesia, pre-existing deficit, seizure, tingling, tremors, weakness, other Endocrine: Denies: no symptoms, excessive sweating, flushing, intolerance to cold, intolerance to heat, increased hunger, increased thirst, increased urine, unexplained weight gain, unexplained weight loss, other Allergies: Coded Allergies: PENICILLINS (Verified Allergy, Unknown, 02/10/17) Uncoded Allergies: PENICILLIN (Allergy, Unknown, 05/15/19) Subjective 08/20: requires bp control of hematoma nonsurgical care, bp mildly high in afternoon Objective Objective Current Medications Medications (Trade) Dose Ordered Sig/Sharla Route PRN Reason Start Time Stop Time Status Last Admin Dose Admin Amlodipine Besylate (Norvasc) 5 mg DAILY ORAL 08/20/19 09:00 09/17/19 08:59 Chlorhexidine Gluconate (Chastity-Hex 2%) 1 applic DAILY@1999 TOPIC 08/18/19 20:00 09/17/19 19:59 08/19/19 20:07 Ciprofloxacin (Cipro 500mg tab) 500 mg EVERY 12 HOURS ORAL 08/19/19 10:00 08/26/19 09:59 08/20/19 08:45 Hydralazine HCl (Apresoline) 50 mg EVERY 8 HOURS ORAL 08/19/19 14:00 09/16/19 21:59 08/20/19 05:49 Metoprolol Tartrate (Lopressor) 50 mg EVERY 12 HOURS ORAL 08/20/19 21:00 09/16/19 20:59 Morphine Sulfate (Morphine Sulfate) 2 mg Q4H PRN IVP severe pain 08/18/19 18:30 08/24/19 14:26 08/19/19 21:01 Nitroglycerin (Ntg) 1 patch Q24H TDERMAL 08/19/19 09:00 09/17/19 08:59 08/20/19 08:45 Pantoprazole (Protonix) 40 mg DAILY ORAL 08/19/19 09:00 09/18/19 08:59 08/20/19 08:45 Potassium Chloride (K-Dur) 40 meq DAILY ORAL 08/19/19 09:00 09/18/19 08:59 08/20/19 08:45 Sodium Hypochlorite (Dakin's Quarter Strength) 1 applic DAILY TOPIC 08/20/19 09:00 09/19/19 08:59 08/20/19 08:53 Thiamine HCl (Vitamin B1) 100 mg DAILY ORAL 08/20/19 09:00 09/19/19 08:59 08/20/19 08:45 Vancomycin HCl (Vanco rx to dose) 1 ea DAILY PRN MISC Per rx protocol 08/18/19 18:30 09/17/19 18:29 Vancomycin HCl 1 gm/Dextrose 275 ml @ 183.708 mls/hr Q12HR@0500,1700 IVPB 08/19/19 05:00 08/24/19 04:59 08/20/19 05:04 Last 24 Hour Vital Signs Date Time Temp Pulse Resp B/P (MAP) Pulse Ox O2 Delivery O2 Flow Rate FiO2 08/20/19 14:00 165/92 08/20/19 12:00 Room Air 08/20/19 12:00 100.0 78 20 165/92 (116) 95 08/20/19 11:36 83 08/20/19 08:49 94 125/75 08/20/19 08:45 125/75 08/20/19 08:00 94 08/20/19 08:00 Room Air 08/20/19 08:00 98.4 94 20 125/75 (92) 95 08/20/19 05:49 160/80 08/20/19 04:00 98.2 83 20 160/80 (106) 100 08/20/19 04:00 Room Air 08/20/19 04:00 85 08/20/19 00:00 75 08/20/19 00:00 98.2 81 20 148/91 (110) 98 08/20/19 00:00 Nasal Cannula 2.0 08/19/19 22:11 153/83 08/19/19 20:57 68 152/91 08/19/19 20:00 98.8 68 20 152/91 (111) 99 08/19/19 20:00 86 08/19/19 20:00 Nasal Cannula 2.0 08/19/19 16:00 Nasal Cannula 2.0 08/19/19 16:00 98.2 81 17 160/94 (116) 97 08/19/19 15:22 78 08/19/19 14:00 151/89 08/19/19 12:00 Nasal Cannula 2.0 08/19/19 12:00 97.7 81 18 151/89 (109) 98 11/15/19 12:00 82 08/19/19 08:42 74 165/88 08/19/19 08:42 74 165/88 08/19/19 08:41 165/88 08/19/19 08:00 Nasal Cannula 2.0 08/19/19 08:00 99.4 74 20 165/88 (113) 96 08/19/19 07:29 77 08/19/19 06:00 139/71 08/19/19 04:00 99.6 83 20 150/81 (104) 96 08/19/19 04:00 Nasal Cannula 2.0 08/19/19 04:00 97 08/19/19 00:00 98.7 92 24 157/87 (110) 98 08/19/19 00:00 Nasal Cannula 2.0 08/19/19 00:00 87 08/18/19 22:29 168/85 08/18/19 21:35 91 164/83 08/18/19 20:00 97 08/18/19 20:00 Nasal Cannula 2.0 08/18/19 20:00 99.0 94 24 148/69 (95) 99 08/18/19 18:03 99 08/18/19 17:00 88 24 147/73 (97) 99 08/18/19 16:00 92 08/18/19 16:00 Nasal Cannula 2.0 08/18/19 16:00 98.6 97 27 151/83 (105) 98 Intake and Output 08/19/19 08/20/19 19:00 07:00 Intake Total 841.000 ml 395.000 ml Output Total 701 ml 900 ml Balance 140.000 ml -505.000 ml Intake Oral 360 ml 120 ml IV Total 481.000 ml 275.000 ml Output Urine Total 700 ml 900 ml Stool Total 1 ml # Bowel Movements 1 Labs Test 08/18/19 04:40 08/19/19 02:11 White Blood Count 6.4 K/UL (4.8-10.8) 7.6 K/UL (4.8-10.8) Red Blood Count 3.31 M/UL (4.70-6.10) 3.49 M/UL (4.70-6.10) Hemoglobin 10.9 G/DL (14.2-18.0) 11.3 G/DL (14.2-18.0) Hematocrit 31.8 % (42.0-52.0) 33.0 % (42.0-52.0) Mean Corpuscular Volume 96 FL (80-99) 95 FL (80-99) Mean Corpuscular Hemoglobin 33.0 PG (27.0-31.0) 32.4 PG (27.0-31.0) Mean Corpuscular Hemoglobin Concent 34.4 G/DL (32.0-36.0) 34.3 G/DL (32.0-36.0) Red Cell Distribution Width 11.8 % (11.6-14.8) 11.5 % (11.6-14.8) Platelet Count 125 K/UL (150-450) 141 K/UL (150-450) Mean Platelet Volume 8.6 FL (6.5-10.1) 5.9 FL (6.5-10.1) Neutrophils (%) (Auto) 65.0 % (45.0-75.0) 57.4 % (45.0-75.0) Lymphocytes (%) (Auto) 22.5 % (20.0-45.0) 26.2 % (20.0-45.0) Monocytes (%) (Auto) 10.2 % (1.0-10.0) 12.8 % (1.0-10.0) Eosinophils (%) (Auto) 1.3 % (0.0-3.0) 2.4 % (0.0-3.0) Basophils (%) (Auto) 1.0 % (0.0-2.0) 1.2 % (0.0-2.0) Sodium Level 136 MMOL/L (136-145) 140 MMOL/L (136-145) Potassium Level 3.3 MMOL/L (3.5-5.1) 3.4 MMOL/L (3.5-5.1) Chloride Level 104 MMOL/L (98-107) 107 MMOL/L (98-107) Carbon Dioxide Level 26 MMOL/L (21-32) 25 MMOL/L (21-32) Anion Gap 6 mmol/L (5-15) 8 mmol/L (5-15) Blood Urea Nitrogen 12 mg/dL (7-18) 9 mg/dL (7-18) Creatinine 1.3 MG/DL (0.55-1.30) 1.2 MG/DL (0.55-1.30) Estimat Glomerular Filtration Rate > 60 mL/min (>60) > 60 mL/min (>60) Glucose Level 181 MG/DL (74-106) 139 MG/DL (74-106) Hemoglobin A1c 6.5 % (4.3-6.0) Uric Acid 5.5 MG/DL (2.6-7.2) Calcium Level 7.8 MG/DL (8.5-10.1) 7.9 MG/DL (8.5-10.1) Phosphorus Level 2.1 MG/DL (2.5-4.9) 2.8 MG/DL (2.5-4.9) Magnesium Level 1.4 MG/DL (1.8-2.4) 1.8 MG/DL (1.8-2.4) Iron Level 50 ug/dL (50-175) Total Iron Binding Capacity 203 ug/dL (250-450) Percent Iron Saturation 25 % (15-50) Unsaturated Iron Binding 153 ug/dL (112-346) Ferritin 341 NG/ML (8-388) Total Bilirubin 1.6 MG/DL (0.2-1.0) 1.2 MG/DL (0.2-1.0) Direct Bilirubin 0.9 MG/DL (0.0-0.3) 0.8 MG/DL (0.0-0.3) Aspartate Amino Transf (AST/SGOT) 111 U/L (15-37) 110 U/L (15-37) Alanine Aminotransferase (ALT/SGPT) 46 U/L (12-78) 49 U/L (12-78) Alkaline Phosphatase 57 U/L (46-116) 65 U/L (46-116) Ammonia 19 umol/L (11-32) 35 umol/L (11-32) Troponin I 0.061 ng/mL (0.000-0.056) 0.056 ng/mL (0.000-0.056) C-Reactive Protein, Quantitative 2.4 mg/dL (0.00-0.90) 2.0 mg/dL (0.00-0.90) Pro-B-Type Natriuretic Peptide 1036 pg/mL (0-125) 2731 pg/mL (0-125) Total Protein 6.8 G/DL (6.4-8.2) 7.4 G/DL (6.4-8.2) Albumin 1.9 G/DL (3.4-5.0) 2.0 G/DL (3.4-5.0) Globulin 4.9 g/dL 5.4 g/dL Albumin/Globulin Ratio 0.4 (1.0-2.7) 0.4 (1.0-2.7) Triglycerides Level 64 MG/DL (30-150) Cholesterol Level 84 MG/DL (< 200) LDL Cholesterol 51 mg/dL (<100) HDL Cholesterol 21 MG/DL (40-60) Cholesterol/HDL Ratio 4.0 (3.3-4.4) Vitamin B12 Level 480 PG/ML (193-986) Folate 16.2 NG/ML (8.6-58.9) Thyroid Stimulating Hormone (TSH) 0.573 uiU/mL (0.358-3.740) Hepatitis A IgM Antibody Negative (Negative) Hepatitis B Surface Antigen Negative (Negative) Hepatitis B Core IgM Antibody Negative (Negative) Hepatitis C Antibody >11.0 s/co ratio Vancomycin Level Trough 12.4 ug/mL (5.0-12.0) Height (Feet): 6 Height (Inches): 1.00 Weight (Pounds): 229 Objective PE General: alert, mild distress, other - disheveled Neck: normal inspection Respiratory: chest non-tender, lungs clear, normal breath sounds Cardiovascular: tachycardia Gastrointestinal: normal bowel sounds, non tender, soft, non-distended, no guarding, no rebound Genitourinary: no CVA tenderness Musculoskeletal: tender - L ankle swelling Neurologic: alert, motor strength/tone normal, sensory intact, speech normal, other - moaning. agitated Skin: other - erythema/weeping skin LLE. ulceration noted Luis M Carlin MD Aug 20, 2019 15:02
[2019-08-20 16:00] VITALS: BP 149/88
--- NOTE | 2019-08-20 17:47 | General Progress Note ---
Assessment/Plan Status: progressing Assessment/Plan: Assessment - intracrainial bleed - cirrhosis per imaging - Hepatitis C - Hiatal hernia - LE edema - Anemia - minimally elevated NH3 - suspect incidental Recommendations - po as tolerated - neuro exams - outpatient HCV eradication Subjective Allergies: Coded Allergies: PENICILLINS (Verified Allergy, Unknown, 02/10/17) Uncoded Allergies: PENICILLIN (Allergy, Unknown, 05/15/19) Subjective Seen this am eating OK no abd complaints Cirrhosis noted on CT Hepatitis C positive Objective Last 24 Hour Vital Signs Date Time Temp Pulse Resp B/P (MAP) Pulse Ox O2 Delivery O2 Flow Rate FiO2 08/20/19 16:00 Room Air 08/20/19 16:00 98.4 82 20 149/88 (108) 98 08/20/19 14:00 165/92 08/20/19 12:00 Room Air 08/20/19 12:00 100.0 78 20 165/92 (116) 95 08/20/19 11:36 83 08/20/19 08:49 94 125/75 08/20/19 08:45 125/75 08/20/19 08:00 94 08/20/19 08:00 Room Air 08/20/19 08:00 98.4 94 20 125/75 (92) 95 08/20/19 05:49 160/80 08/20/19 04:00 98.2 83 20 160/80 (106) 100 08/20/19 04:00 Room Air 08/20/19 04:00 85 08/20/19 00:00 75 08/20/19 00:00 98.2 81 20 148/91 (110) 98 08/20/19 00:00 Nasal Cannula 2.0 08/19/19 22:11 153/83 08/19/19 20:57 68 152/91 08/19/19 20:00 98.8 68 20 152/91 (111) 99 08/19/19 20:00 86 08/19/19 20:00 Nasal Cannula 2.0 08/19/19 19:00 Room Air Intake and Output 08/19/19 08/20/19 19:00 07:00 Intake Total 841.000 ml 395.000 ml Output Total 701 ml 900 ml Balance 140.000 ml -505.000 ml Intake Oral 360 ml 120 ml IV Total 481.000 ml 275.000 ml Output Urine Total 700 ml 900 ml Stool Total 1 ml # Bowel Movements 1 Height (Feet): 6 Height (Inches): 1.00 Weight (Pounds): 229 Objective WDWN NCAT supple CTA RRR abd soft ND NT no edema Viktoria Chatterjee MD Aug 20, 2019 17:47
[2019-08-20 20:00] VITALS: BP 159/88
[2019-08-20] MEDS: Dyna-Hex 2% Top Sol 2oz TOPIC SCH (20:07)
--- NOTE | 2019-08-20 20:34 | Diagnostic Imaging Report ---
APPROVED REPORT CPT Code: 03002 Present Symptoms Comments: BILATERAL LEGS PAIN. BILATERAL: Imaging reveals a patent deep venous system bilaterally. There is no evidence of thrombus within the femoral, popliteal or tibial segments. The greater saphenous veins are also within normal limits. Doppler indicates normal spontaneous flow within these segments.
--- NOTE | 2019-08-20 20:34 | Diagnostic Imaging Report ---
APPROVED REPORT CPT Code: 16431 Comments BILATERAL LEGS PAIN. RIGHT LEG: Common femoral artery waveform analysis is within normal limits at rest. Color duplex sonography reveals patency of the superficial femoral, popliteal and tibial arteries. There is no evidence of stenosis or occlusion within these segments. Doppler posterior tibial artery waveform analysis is compatible with minimal ischemia. LEFT LEG: Common femoral artery waveform analysis is within normal limits at rest. Color flow duplex sonography reveals calcification in the Common femoral artery. Color flow duplex sonography reveals patency of the superficial femoral, popliteal, and tibial arteries, there is no evidence of stenosis or occlusion within these segments. Doppler tibial artery waveform analysis is within normal limits. There is no evidence of significant arterial occlusive disease.
--- NOTE | 2019-08-20 20:48 | General Progress Note ---
Assessment/Plan Problem List: (1) Anemia ICD Codes: D64.9 - Anemia, unspecified SNOMED: 298639960 (2) Cellulitis ICD Codes: L03.90 - Cellulitis, unspecified SNOMED: 418274757 (3) Liver cirrhosis ICD Codes: K74.60 - Unspecified cirrhosis of liver SNOMED: 60223768 Qualifiers: Qualified Codes: K74.60 - Unspecified cirrhosis of liver (4) Drug abuse ICD Codes: F19.10 - Other psychoactive substance abuse, uncomplicated SNOMED: 28687852 (5) Peripheral neuropathy ICD Codes: G62.9 - Polyneuropathy, unspecified SNOMED: 631025962 Qualifiers: Qualified Codes: G62.9 - Polyneuropathy, unspecified (6) Fracture of distal end of left tibia ICD Codes: S82.302A - Unspecified fracture of lower end of left tibia, initial encounter for closed fracture SNOMED: 658118345 Qualifiers: Qualified Codes: S82.302A - Unspecified fracture of lower end of left tibia , initial encounter for closed fracture (7) Hepatitis C ICD Codes: B19.20 - Unspecified viral hepatitis C without hepatic coma SNOMED: 93487185 (8) Hepatic encephalopathy ICD Codes: K72.90 - Hepatic failure, unspecified without coma SNOMED: 38011608 (9) Coagulopathy ICD Codes: D68.9 - Coagulation defect, unspecified SNOMED: 62433626 (10) Sepsis ICD Codes: A41.9 - Sepsis, unspecified organism SNOMED: 62063129 (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 (12) Abnormal LFTs ICD Codes: R94.5 - Abnormal results of liver function studies SNOMED: 749153004 Status: progressing Assessment/Plan: intracranial hemorrhge etoh cirhosis hepatic encephalpathy sepsis check lyte and anemia afebrile Subjective ROS Limited/Unobtainable: Yes Allergies: Coded Allergies: PENICILLINS (Verified Allergy, Unknown, 02/10/17) Uncoded Allergies: PENICILLIN (Allergy, Unknown, 05/15/19) Objective Last 24 Hour Vital Signs Date Time Temp Pulse Resp B/P (MAP) Pulse Ox O2 Delivery O2 Flow Rate FiO2 08/20/19 20:00 99.0 69 20 159/88 (111) 97 08/20/19 20:00 75 08/20/19 16:00 Room Air 11/16/19 16:00 98.4 82 20 149/88 (108) 98 08/20/19 15:11 81 08/20/19 14:00 165/92 08/20/19 12:00 Room Air 08/20/19 12:00 100.0 78 20 165/92 (116) 95 08/20/19 11:36 83 08/20/19 08:49 94 125/75 08/20/19 08:45 125/75 08/20/19 08:00 94 08/20/19 08:00 Room Air 08/20/19 08:00 98.4 94 20 125/75 (92) 95 08/20/19 05:49 160/80 08/20/19 04:00 98.2 83 20 160/80 (106) 100 08/20/19 04:00 Room Air 08/20/19 04:00 85 08/20/19 00:00 75 08/20/19 00:00 98.2 81 20 148/91 (110) 98 08/20/19 00:00 Nasal Cannula 2.0 08/19/19 22:11 153/83 08/19/19 20:57 68 152/91 Intake and Output 08/19/19 08/20/19 19:00 07:00 Intake Total 841.000 ml 395.000 ml Output Total 700 ml 900 ml Balance 141.000 ml -505.000 ml Intake Oral 360 ml 120 ml IV Total 481.000 ml 275.000 ml Output Urine Total 700 ml 900 ml # Bowel Movements 2 Height (Feet): 6 Height (Inches): 1.00 Weight (Pounds): 229 Neck: supple Cardiovascular: normal rate Respiratory/Chest: lungs clear Esthela Arauz MD Aug 20, 2019 20:48
[2019-08-20] MEDS: Metoprolol Tartrate 50mg tab ORAL SCH (21:01)
[2019-08-21] VITALS: BP 145/89
[2019-08-21 04:00] VITALS: BP 135/73
[2019-08-21 04:49] LABS: BASOPHILS % (AUTO) 1.8 % (0.0-2.0); EOSINOPHILS % (AUTO) 5.9 % (0.0-3.0); HEMATOCRIT 33.7 % (42.0-52.0); HEMOGLOBIN 11.5 G/DL (14.2-18.0); LYMPHOCYTES % (AUTO) 40.4 % (20.0-45.0); MEAN CORPUSCULAR VOLUME 97 FL (80-99); MONOCYTES % (AUTO) 11.2 % (1.0-10.0); NEUTROPHILS % (AUTO) 40.7 % (45.0-75.0); PLATELET COUNT 162 K/UL (150-450); RED BLOOD COUNT 3.48 M/UL (4.70-6.10); RED CELL DISTRIBUTION WIDTH 11.7 % (11.6-14.8)
[2019-08-21] MEDS: Vancomycin 1 GM in D5W 275 ML IVPB SCH ×2 (04:52→16:08)
[2019-08-21 05:21] LABS: ALANINE AMINOTRANSFERASE 54 U/L (12-78); ALBUMIN/GLOBULIN RATIO 0.4 (1.0-2.7); ALKALINE PHOSPHATASE 70 U/L (46-116); ANION GAP 5 mmol/L (5-15); ASPARTATE AMINO TRANSFERASE 108 U/L (15-37); BILIRUBIN,TOTAL 0.8 MG/DL (0.2-1.0); BLOOD UREA NITROGEN 13 mg/dL (7-18); CALCIUM 8.3 MG/DL (8.5-10.1); CARBON DIOXIDE 28 MMOL/L (21-32); CHLORIDE 108 MMOL/L (98-107); CREATININE 1.1 MG/DL (0.55-1.30); PHOSPHORUS 3.4 MG/DL (2.5-4.9); POTASSIUM 3.8 MMOL/L (3.5-5.1); SODIUM 141 MMOL/L (136-145)
[2019-08-21] MEDS: HydrALAZINE 50mg tab ORAL SCH ×3 (06:34→22:16)
[2019-08-21] MEDS: Morphine Sulfate 2mg/ml Inj(IV/IM USE ONLY) IVP PRN (06:38)
[2019-08-21 08:00] VITALS: BP 130/83
[2019-08-21] MEDS: Nitroglycerin Patch 0.4mg TDERMAL SCH (09:43)
[2019-08-21] MEDS: Thiamine 100mg tab ORAL SCH (09:44)
[2019-08-21] MEDS: Metoprolol Tartrate 50mg tab ORAL SCH ×2 (09:44→20:18)
[2019-08-21] MEDS: Ciprofloxacin 500mg tab ORAL SCH ×2 (09:44→20:17)
[2019-08-21] MEDS: Dakin's 0.125% Soln (Quarter Strength) 16oz TOPIC SCH (09:48)
[2019-08-21] MEDS ORDERED: D5NS 1000ml IV ONE (10:14)
[2019-08-21] MEDS ORDERED: NS 275ml ONE (10:14)
[2019-08-21] MEDS ORDERED: Tubing IV Secondary IV ONE (10:14)
--- NOTE | 2019-08-21 10:47 | Surgery Progress Note ---
Surgery Progress Note Subjective Additional Comments labs improving overall stable Objective Last 24 Hour Vital Signs Date Time Temp Pulse Resp B/P (MAP) Pulse Ox O2 Delivery O2 Flow Rate FiO2 08/21/19 09:44 84 130/83 08/21/19 09:44 84 130/83 08/21/19 09:43 130/83 08/21/19 08:00 Room Air 08/21/19 08:00 83 08/21/19 08:00 98.2 84 20 130/83 (99) 96 08/21/19 06:34 166/98 08/21/19 04:00 71 08/21/19 04:00 Room Air 08/21/19 04:00 98.8 72 20 135/73 (93) 97 08/21/19 00:00 70 08/21/19 00:00 Room Air 08/21/19 00:00 98.8 67 20 145/89 (107) 97 08/20/19 22:15 163/85 08/20/19 21:01 78 159/88 08/20/19 20:00 Room Air 08/20/19 20:00 99.0 69 20 159/88 (111) 97 08/20/19 20:00 75 08/20/19 16:00 Room Air 08/20/19 16:00 98.4 82 20 149/88 (108) 98 08/20/19 15:11 81 08/20/19 14:00 165/92 08/20/19 12:00 Room Air 08/20/19 12:00 100.0 78 20 165/92 (116) 95 08/20/19 11:36 83 I&O Intake and Output 08/20/19 08/21/19 18:59 06:59 Intake Total 725.000 ml 515.000 ml Output Total 1100 ml 800 ml Balance -375.000 ml -285.000 ml Intake Oral 450 ml 240 ml IV Total 275.000 ml 275.000 ml Output Urine Total 1100 ml 800 ml # Bowel Movements 2 Dressing: saturated Wound: other Drains: other Cardiovascular: RSR Respiratory: decreased breath sounds Abdomen: soft, present bowel sounds Extremities: no cyanosis, other Laboratory Tests Test 08/21/19 04:00 White Blood Count 6.0 K/UL (4.8-10.8) Red Blood Count 3.48 M/UL (4.70-6.10) L Hemoglobin 11.5 G/DL (14.2-18.0) L Hematocrit 33.7 % (42.0-52.0) L Mean Corpuscular Volume 97 FL (80-99) Mean Corpuscular Hemoglobin 33.2 PG (27.0-31.0) H Mean Corpuscular Hemoglobin Concent 34.2 G/DL (32.0-36.0) Red Cell Distribution Width 11.7 % (11.6-14.8) Platelet Count 162 K/UL (150-450) Mean Platelet Volume 6.2 FL (6.5-10.1) L Neutrophils (%) (Auto) 40.7 % (45.0-75.0) L Lymphocytes (%) (Auto) 40.4 % (20.0-45.0) Monocytes (%) (Auto) 11.2 % (1.0-10.0) H Eosinophils (%) (Auto) 5.9 % (0.0-3.0) H Basophils (%) (Auto) 1.8 % (0.0-2.0) Sodium Level 141 MMOL/L (136-145) Potassium Level 3.8 MMOL/L (3.5-5.1) Chloride Level 108 MMOL/L (98-107) H Carbon Dioxide Level 28 MMOL/L (21-32) Anion Gap 5 mmol/L (5-15) Blood Urea Nitrogen 13 mg/dL (7-18) Creatinine 1.1 MG/DL (0.55-1.30) Estimat Glomerular Filtration Rate > 60 mL/min (>60) Glucose Level 122 MG/DL (74-106) H Calcium Level 8.3 MG/DL (8.5-10.1) L Phosphorus Level 3.4 MG/DL (2.5-4.9) Magnesium Level 1.6 MG/DL (1.8-2.4) L Total Bilirubin 0.8 MG/DL (0.2-1.0) Aspartate Amino Transf (AST/SGOT) 108 U/L (15-37) H Alanine Aminotransferase (ALT/SGPT) 54 U/L (12-78) Alkaline Phosphatase 70 U/L (46-116) C-Reactive Protein, Quantitative 1.0 mg/dL (0.00-0.90) H Pro-B-Type Natriuretic Peptide 1610 pg/mL (0-125) H Total Protein 7.4 G/DL (6.4-8.2) Albumin 2.0 G/DL (3.4-5.0) L Globulin 5.4 g/dL Albumin/Globulin Ratio 0.4 (1.0-2.7) L Plan Problems: (1) 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 Wounds Right lower ext are malodorous. Irregular shaped ulcers with fibrinous slough vaibhav, medial and posterior R tibia,wounds oozing seropurulent exudate.Surrounding Xerosis skin noted. Large ulcer noted to dorsal R foot. Fibrinous slough at base of wound with macerated borders. Ulcers dorsal and web space of R 1st metatarsal oozing serosanguineous exudate. Small amt sanguineous exudate noted. R heel boggy,tender when palpated. RLE and R foot thoroughly washed ,gently scrubbed and moisturized to remove thick scaly skin. Post cleansing wounds are still malodorous. Pt stated he had wounds for considerable time but denied ever seeking medical attention for wounds. No other skin concerns noted.Pt has Splint L lower ext. Tx.Plan: Cleanse wounds RLE and R foot with Dakin's 0.125% solution. Apply TheraHoney. Cover each wound with Maxsorb Extra(Calcium Alginate) Apply Abd Pads and wrap with Kerlix from base of toes to below knee. Elevate leg on pillows. Reposition at least every 2hours or as tolerated. (2) Fracture of distal end of left tibia Assessment & Plan: No acute fracture, malalignment, or periosteal reaction are identified. Soft tissues are unremarkable. The AP or frontal projection is limited by the presence of a posterior splint. Impression: No obvious acute injury. (3) Osteomyelitis of foot, right, acute Assessment & Plan: No acute fracture, malalignment, or periosteal reaction are identified. Soft tissues are unremarkable. The AP or frontal projection is limited by the presence of a posterior splint. Impression: No obvious acute injury. No evidence of acute osteomyelitis or abscess in the area of clinical concern. Generalized subcutaneous edema which is nonspecific but may be due to cellulitis. (4) Cellulitis Assessment & Plan: as above abx as per ID (5) Abnormal LFTs Assessment & Plan: hx of liver insufficiency / disease lft's mildly elevated Suspected chronic liver disease with surface nodularity and heterogeneous coarsened echotexture. No ascites. Mild thickening of the gallbladder wall nonspecific. Chronic liver disease/cirrhosis with signs of portal hypertension including trace ascites, anasarca, mesenteric edema and portosystemic varices in the distal esophagus. Spleen is normal size. will follow with recs trends labs Patrick Ga Aug 21, 2019 10:47
--- NOTE | 2019-08-21 10:58 | Nephrology Progress Note ---
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 He has a new left thalamic hematoma, most likely secondary to his hypertensive vascular disease. Neuro: Plan MS susannah I HAD MD-MD CONVERSATION YESTERDAY WITH LUIS ENRIQUE. I WAS TOLD THAT THE THALAMUS HEMATOMA IS NOT A NEUROSURGICAL OPERATIVE CASE. CAUSE BY HTN AND NEED TO HAVE BP CONTROL AND OBSERVE. DR MARTÍNEZ IS ALSO AGREEABLE to med-surg adjust BP meds- tolerating PO Arrange for SNF Hold mind altering meds hydrate neuro eval note antibiotics per consultants / Neuro Nitro Head CT: 17 x 6 x 8 mm acute to subacute hematoma in the left upper thalamus/morales radiata. Little to no edema or mass effect associated with this. Mild atrophy of the brain. Nonspecific white matter hypoattenuation probably due to chronic small vessel disease. Sinusitis Subjective ROS Limited/Unobtainable: No Objective Objective Last 24 Hour Vital Signs Date Time Temp Pulse Resp B/P (MAP) Pulse Ox O2 Delivery O2 Flow Rate FiO2 08/21/19 09:44 84 130/83 08/21/19 09:44 84 130/83 08/21/19 09:43 130/83 08/21/19 08:00 Room Air 08/21/19 08:00 83 08/21/19 08:00 98.2 84 20 130/83 (99) 96 08/21/19 06:34 166/98 08/21/19 04:00 71 08/21/19 04:00 Room Air 08/21/19 04:00 98.8 72 20 135/73 (93) 97 08/21/19 00:00 70 08/21/19 00:00 Room Air 08/21/19 00:00 98.8 67 20 145/89 (107) 97 08/20/19 22:15 163/85 08/20/19 21:01 78 159/88 08/20/19 20:00 Room Air 08/20/19 20:00 99.0 69 20 159/88 (111) 97 08/20/19 20:00 75 08/20/19 16:00 Room Air 08/20/19 16:00 98.4 82 20 149/88 (108) 98 08/20/19 15:11 81 08/20/19 14:00 165/92 08/20/19 12:00 Room Air 08/20/19 12:00 100.0 78 20 165/92 (116) 95 08/20/19 11:36 83 Intake and Output 08/20/19 08/21/19 18:59 06:59 Intake Total 725.000 ml 515.000 ml Output Total 1100 ml 800 ml Balance -375.000 ml -285.000 ml Intake Oral 450 ml 240 ml IV Total 275.000 ml 275.000 ml Output Urine Total 1100 ml 800 ml # Bowel Movements 2 Laboratory Tests 08/21/19 04:00: White Blood Count 6.0, Red Blood Count 3.48L, Hemoglobin 11.5L, Hematocrit 33.7L , Mean Corpuscular Volume 97, Mean Corpuscular Hemoglobin 33.2H, Mean Corpuscular Hemoglobin Concent 34.2, Red Cell Distribution Width 11.7, Platelet Count 162, Mean Platelet Volume 6.2L, Neutrophils (%) (Auto) 40.7L, Lymphocytes (%) (Auto) 40.4, Monocytes (%) (Auto) 11.2H, Eosinophils (%) (Auto) 5.9H, Basophils (%) (Auto) 1.8, Sodium Level 141, Potassium Level 3.8, Chloride Level 108H, Carbon Dioxide Level 28, Anion Gap 5, Blood Urea Nitrogen 13, Creatinine 1.1, Estimat Glomerular Filtration Rate > 60, Glucose Level 122H, Calcium Level 8.3L, Phosphorus Level 3.4, Magnesium Level 1.6L, Total Bilirubin 0.8, Aspartate Amino Transf (AST/SGOT) 108H, Alanine Aminotransferase (ALT/SGPT) 54, Alkaline Phosphatase 70, C-Reactive Protein, Quantitative 1.0H, Pro-B-Type Natriuretic Peptide 1610H, Total Protein 7.4, Albumin 2.0L, Globulin 5.4, Albumin/Globulin Ratio 0.4L Height (Feet): 6 Height (Inches): 1.00 Weight (Pounds): 230 General Appearance: no apparent distress Objective no change Geoffrey Manzano MD Aug 21, 2019 10:58
[2019-08-21 12:00] VITALS: BP 149/85
--- NOTE | 2019-08-21 12:03 | Infectious Diseases Prog Note ---
Assessment/Plan Assessment/Plan IMPRESSION: 1. Sepsis with fever and tachycardia. 2. Bilateral leg cellulitis. 3. penicillin allergy 4. Intracranial bleeding & hematoma. 5. Liver cirrhosis. 6. Diabetes mellitus with peripheral neuropathy. 7. Hypertension. 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 leg MRI: negative for osteomyelitis Subjective ROS Limited/Unobtainable: No Constitutional: Reports: no symptoms Respiratory: Reports: no symptoms Cardiovascular: Reports: no symptoms Gastrointestinal/Abdominal: Reports: no symptoms Musculoskeletal: Reports: no symptoms Allergies: Coded Allergies: PENICILLINS (Verified Allergy, Unknown, 02/10/17) Uncoded Allergies: PENICILLIN (Allergy, Unknown, 05/15/19) Objective Vital Signs Last 24 Hour Vital Signs Date Time Temp Pulse Resp B/P (MAP) Pulse Ox O2 Delivery O2 Flow Rate FiO2 08/21/19 09:44 84 130/83 08/21/19 09:44 84 130/83 08/21/19 09:43 130/83 08/21/19 08:00 Room Air 08/21/19 08:00 83 08/21/19 08:00 98.2 84 20 130/83 (99) 96 08/21/19 06:34 166/98 08/21/19 04:00 71 08/21/19 04:00 Room Air 08/21/19 04:00 98.8 72 20 135/73 (93) 97 08/21/19 00:00 70 08/21/19 00:00 Room Air 08/21/19 00:00 98.8 67 20 145/89 (107) 97 08/20/19 22:15 163/85 08/20/19 21:01 78 159/88 08/20/19 20:00 Room Air 08/20/19 20:00 99.0 69 20 159/88 (111) 97 08/20/19 20:00 75 08/20/19 16:00 Room Air 08/20/19 16:00 98.4 82 20 149/88 (108) 98 08/20/19 15:11 81 08/20/19 14:00 165/92 08/20/19 12:00 Room Air 08/20/19 12:00 100.0 78 20 165/92 (116) 95 Height (Feet): 6 Height (Inches): 1.00 Weight (Pounds): 230 General Appearance: no acute distress HEENT: mucous membranes moist Respiratory/Chest: lungs clear Cardiovascular: normal rate Abdomen: soft, non tender Extremities: other - legs edema Skin: ulcers, other - legs Neurologic/Psychiatric: alert, oriented x 3, responsive Laboratory Tests Test 08/21/19 04:00 White Blood Count 6.0 K/UL (4.8-10.8) Red Blood Count 3.48 M/UL (4.70-6.10) L Hemoglobin 11.5 G/DL (14.2-18.0) L Hematocrit 33.7 % (42.0-52.0) L Mean Corpuscular Volume 97 FL (80-99) Mean Corpuscular Hemoglobin 33.2 PG (27.0-31.0) H Mean Corpuscular Hemoglobin Concent 34.2 G/DL (32.0-36.0) Red Cell Distribution Width 11.7 % (11.6-14.8) Platelet Count 162 K/UL (150-450) Mean Platelet Volume 6.2 FL (6.5-10.1) L Neutrophils (%) (Auto) 40.7 % (45.0-75.0) L Lymphocytes (%) (Auto) 40.4 % (20.0-45.0) Monocytes (%) (Auto) 11.2 % (1.0-10.0) H Eosinophils (%) (Auto) 5.9 % (0.0-3.0) H Basophils (%) (Auto) 1.8 % (0.0-2.0) Sodium Level 141 MMOL/L (136-145) Potassium Level 3.8 MMOL/L (3.5-5.1) Chloride Level 108 MMOL/L (98-107) H Carbon Dioxide Level 28 MMOL/L (21-32) Anion Gap 5 mmol/L (5-15) Blood Urea Nitrogen 13 mg/dL (7-18) Creatinine 1.1 MG/DL (0.55-1.30) Estimat Glomerular Filtration Rate > 60 mL/min (>60) Glucose Level 122 MG/DL (74-106) H Calcium Level 8.3 MG/DL (8.5-10.1) L Phosphorus Level 3.4 MG/DL (2.5-4.9) Magnesium Level 1.6 MG/DL (1.8-2.4) L Total Bilirubin 0.8 MG/DL (0.2-1.0) Aspartate Amino Transf (AST/SGOT) 108 U/L (15-37) H Alanine Aminotransferase (ALT/SGPT) 54 U/L (12-78) Alkaline Phosphatase 70 U/L (46-116) C-Reactive Protein, Quantitative 1.0 mg/dL (0.00-0.90) H Pro-B-Type Natriuretic Peptide 1610 pg/mL (0-125) H Total Protein 7.4 G/DL (6.4-8.2) Albumin 2.0 G/DL (3.4-5.0) L Globulin 5.4 g/dL Albumin/Globulin Ratio 0.4 (1.0-2.7) L Current Medications Medications (Trade) Dose Ordered Sig/Sharla Route PRN Reason Start Time Stop Time Status Last Admin Dose Admin Amlodipine Besylate (Norvasc) 5 mg DAILY ORAL 08/20/19 09:00 09/17/19 08:59 08/21/19 09:44 Chlorhexidine Gluconate (Chastity-Hex 2%) 1 applic DAILY@2000 TOPIC 08/18/19 20:00 09/17/19 19:59 08/20/19 20:07 Ciprofloxacin (Cipro 500mg tab) 500 mg EVERY 12 HOURS ORAL 08/19/19 10:00 08/26/19 09:59 08/21/19 09:44 Hydralazine HCl (Apresoline) 50 mg EVERY 8 HOURS ORAL 08/19/19 14:00 09/16/19 21:59 08/21/19 06:34 Magnesium Sulfate 100 ml @ 100 mls/hr Q1H IVPB 08/21/19 09:00 08/21/19 12:59 08/21/19 11:49 Metoprolol Tartrate (Lopressor) 50 mg EVERY 12 HOURS ORAL 08/20/19 21:00 09/16/19 20:59 08/21/19 09:44 Morphine Sulfate (Morphine Sulfate) 2 mg Q4H PRN IVP severe pain 08/18/19 18:30 08/24/19 14:26 08/21/19 06:38 Nitroglycerin (Ntg) 1 patch Q24H TDERMAL 08/19/19 09:00 09/17/19 08:59 08/21/19 09:43 Pantoprazole (Protonix) 40 mg DAILY ORAL 08/19/19 09:00 09/18/19 08:59 08/21/19 09:44 Potassium Chloride (K-Dur) 40 meq DAILY ORAL 08/19/19 09:00 09/18/19 08:59 08/21/19 09:44 Sodium Hypochlorite (Dakin's Quarter Strength) 1 applic DAILY TOPIC 08/20/19 09:00 09/19/19 08:59 08/21/19 09:48 Thiamine HCl (Vitamin B1) 100 mg DAILY ORAL 08/20/19 09:00 09/19/19 08:59 08/21/19 09:44 Vancomycin HCl (Vanco rx to dose) 1 ea DAILY PRN MISC Per rx protocol 08/18/19 18:30 09/17/19 18:29 Vancomycin HCl 1 gm/Dextrose 275 ml @ 183.708 mls/hr Q12HR@0500,1700 IVPB 08/19/19 05:00 08/24/19 04:59 08/21/19 04:52 Edis Irving MD Aug 21, 2019 12:03
--- NOTE | 2019-08-21 13:02 | General Progress Note ---
Assessment/Plan Status: progressing Assessment/Plan: Assessment - intracrainial bleed - cirrhosis per imaging - Hepatitis C - Hiatal hernia - LE edema - Anemia - minimally elevated NH3 - suspect incidental Recommendations - po as tolerated - neuro exams - outpatient HCV eradication Subjective Allergies: Coded Allergies: PENICILLINS (Verified Allergy, Unknown, 02/10/17) Uncoded Allergies: PENICILLIN (Allergy, Unknown, 05/15/19) Subjective Seen this am eating OK no abd complaints Cirrhosis noted on CT Hepatitis C positive Objective Last 24 Hour Vital Signs Date Time Temp Pulse Resp B/P (MAP) Pulse Ox O2 Delivery O2 Flow Rate FiO2 08/21/19 12:00 98.6 73 20 149/85 (106) 100 08/21/19 12:00 Room Air 08/21/19 09:44 84 130/83 08/21/19 09:44 84 130/83 08/21/19 09:43 130/83 08/21/19 08:00 Room Air 08/21/19 08:00 83 08/21/19 08:00 98.2 84 20 130/83 (99) 96 08/21/19 06:34 166/98 08/21/19 04:00 71 08/21/19 04:00 Room Air 08/21/19 04:00 98.8 72 20 135/73 (93) 97 08/21/19 00:00 70 08/21/19 00:00 Room Air 08/21/19 00:00 98.8 67 20 145/89 (107) 97 08/20/19 22:15 163/85 08/20/19 21:01 78 159/88 08/20/19 20:00 Room Air 08/20/19 20:00 99.0 69 20 159/88 (111) 97 08/20/19 20:00 75 08/20/19 16:00 Room Air 08/20/19 16:00 98.4 82 20 149/88 (108) 98 08/20/19 15:11 81 08/20/19 14:00 165/92 Intake and Output 08/20/19 08/21/19 18:59 06:59 Intake Total 725.000 ml 515.000 ml Output Total 1100 ml 800 ml Balance -375.000 ml -285.000 ml Intake Oral 450 ml 240 ml IV Total 275.000 ml 275.000 ml Output Urine Total 1100 ml 800 ml # Bowel Movements 2 Laboratory Tests 08/21/19 04:00: White Blood Count 6.0, Red Blood Count 3.48L, Hemoglobin 11.5L, Hematocrit 33.7L , Mean Corpuscular Volume 97, Mean Corpuscular Hemoglobin 33.2H, Mean Corpuscular Hemoglobin Concent 34.2, Red Cell Distribution Width 11.7, Platelet Count 162, Mean Platelet Volume 6.2L, Neutrophils (%) (Auto) 40.7L, Lymphocytes (%) (Auto) 40.4, Monocytes (%) (Auto) 11.2H, Eosinophils (%) (Auto) 5.9H, Basophils (%) (Auto) 1.8, Sodium Level 141, Potassium Level 3.8, Chloride Level 108H, Carbon Dioxide Level 28, Anion Gap 5, Blood Urea Nitrogen 13, Creatinine 1.1, Estimat Glomerular Filtration Rate > 60, Glucose Level 122H, Calcium Level 8.3L, Phosphorus Level 3.4, Magnesium Level 1.6L, Total Bilirubin 0.8, Aspartate Amino Transf (AST/SGOT) 108H, Alanine Aminotransferase (ALT/SGPT) 54, Alkaline Phosphatase 70, C-Reactive Protein, Quantitative 1.0H, Pro-B-Type Natriuretic Peptide 1610H, Total Protein 7.4, Albumin 2.0L, Globulin 5.4, Albumin/Globulin Ratio 0.4L Height (Feet): 6 Height (Inches): 1.00 Weight (Pounds): 230 Objective WDWN NCAT supple CTA RRR abd soft ND NT no edema Viktoria Chatterjee MD Aug 21, 2019 13:02
--- NOTE | 2019-08-21 13:07 | General Progress Note ---
Assessment/Plan Assessment/Plan: (1) B/L LE pain (2) Left tibia fracture (3) Right non healing ulcer (4) Peripheral Neuropathy (5) Cocaine abuse Patient will be continued on Morphine. D/w Dr. Romano and he concurred. Subjective Date patient seen: Aug 21, 2019 Time patient seen: 12:30 - pm Allergies: Coded Allergies: PENICILLINS (Verified Allergy, Unknown, 02/10/17) Uncoded Allergies: PENICILLIN (Allergy, Unknown, 05/15/19) Subjective Constitutional: Reports: weakness HEENT: Reports: no symptoms Cardiovascular: Reports: no symptoms Respiratory: Reports: no symptoms Gastrointestinal/Abdominal: Reports: no symptoms Genitourinary: Reports: no symptoms Neurologic/Psychiatric: Reports: weakness Endocrine: Reports: no symptoms Hematologic/Lymphatic: Reports: no symptoms Subjective Patient is in bed and showing no signs of pain or distress. Pain has been tolerated on the Morphine having on dose in the last 24hrs. No new complaints at this time. Objective Last 24 Hour Vital Signs Date Time Temp Pulse Resp B/P (MAP) Pulse Ox O2 Delivery O2 Flow Rate FiO2 08/21/19 12:00 98.6 73 20 149/85 (106) 100 08/21/19 12:00 Room Air 08/21/19 09:44 84 130/83 08/21/19 09:44 84 130/83 08/21/19 09:43 130/83 08/21/19 08:00 Room Air 08/21/19 08:00 83 08/21/19 08:00 98.2 84 20 130/83 (99) 96 08/21/19 06:34 166/98 08/21/19 04:00 71 08/21/19 04:00 Room Air 08/21/19 04:00 98.8 72 20 135/73 (93) 97 08/21/19 00:00 70 08/21/19 00:00 Room Air 08/21/19 00:00 98.8 67 20 145/89 (107) 97 08/20/19 22:15 163/85 08/20/19 21:01 78 159/88 08/20/19 20:00 Room Air 08/20/19 20:00 99.0 69 20 159/88 (111) 97 08/20/19 20:00 75 08/20/19 16:00 Room Air 08/20/19 16:00 98.4 82 20 149/88 (108) 98 08/20/19 15:11 81 08/20/19 14:00 165/92 Intake and Output 08/20/19 08/21/19 18:59 06:59 Intake Total 725.000 ml 515.000 ml Output Total 1100 ml 800 ml Balance -375.000 ml -285.000 ml Intake Oral 450 ml 240 ml IV Total 275.000 ml 275.000 ml Output Urine Total 1100 ml 800 ml # Bowel Movements 2 Laboratory Tests 08/21/19 04:00: White Blood Count 6.0, Red Blood Count 3.48L, Hemoglobin 11.5L, Hematocrit 33.7L , Mean Corpuscular Volume 97, Mean Corpuscular Hemoglobin 33.2H, Mean Corpuscular Hemoglobin Concent 34.2, Red Cell Distribution Width 11.7, Platelet Count 162, Mean Platelet Volume 6.2L, Neutrophils (%) (Auto) 40.7L, Lymphocytes (%) (Auto) 40.4, Monocytes (%) (Auto) 11.2H, Eosinophils (%) (Auto) 5.9H, Basophils (%) (Auto) 1.8, Sodium Level 141, Potassium Level 3.8, Chloride Level 108H, Carbon Dioxide Level 28, Anion Gap 5, Blood Urea Nitrogen 13, Creatinine 1.1, Estimat Glomerular Filtration Rate > 60, Glucose Level 122H, Calcium Level 8.3L, Phosphorus Level 3.4, Magnesium Level 1.6L, Total Bilirubin 0.8, Aspartate Amino Transf (AST/SGOT) 108H, Alanine Aminotransferase (ALT/SGPT) 54, Alkaline Phosphatase 70, C-Reactive Protein, Quantitative 1.0H, Pro-B-Type Natriuretic Peptide 1610H, Total Protein 7.4, Albumin 2.0L, Globulin 5.4, Albumin/Globulin Ratio 0.4L Height (Feet): 6 Height (Inches): 1.00 Weight (Pounds): 230 Objective General Appearance: no apparent distress, confused HEENT: normocephalic Neck: non-tender, supple Respiratory/Chest: decreased breath sounds Abdomen: non tender, soft Extremities: other - left LE in cast, right LE bandages applied Neurologic: alert, responsive Giuliano Liu Aug 21, 2019 13:07
[2019-08-21 16:00] VITALS: BP 146/88
[2019-08-21 20:00] VITALS: BP 154/95
[2019-08-21] MEDS: Dyna-Hex 2% Top Sol 2oz TOPIC SCH (20:17)
--- NOTE | 2019-08-21 21:42 | General Progress Note ---
Assessment/Plan Problem List: (1) Anemia ICD Codes: D64.9 - Anemia, unspecified SNOMED: 667422146 (2) Cellulitis ICD Codes: L03.90 - Cellulitis, unspecified SNOMED: 861438782 (3) Liver cirrhosis ICD Codes: K74.60 - Unspecified cirrhosis of liver SNOMED: 75388793 Qualifiers: Qualified Codes: K74.60 - Unspecified cirrhosis of liver (4) Drug abuse ICD Codes: F19.10 - Other psychoactive substance abuse, uncomplicated SNOMED: 95732231 (5) Peripheral neuropathy ICD Codes: G62.9 - Polyneuropathy, unspecified SNOMED: 906142204 Qualifiers: Qualified Codes: G62.9 - Polyneuropathy, unspecified (6) Fracture of distal end of left tibia ICD Codes: S82.302A - Unspecified fracture of lower end of left tibia, initial encounter for closed fracture SNOMED: 014158618 Qualifiers: Qualified Codes: S82.302A - Unspecified fracture of lower end of left tibia , initial encounter for closed fracture (7) Hepatitis C ICD Codes: B19.20 - Unspecified viral hepatitis C without hepatic coma SNOMED: 94194788 (8) Hepatic encephalopathy ICD Codes: K72.90 - Hepatic failure, unspecified without coma SNOMED: 30077889 (9) Coagulopathy ICD Codes: D68.9 - Coagulation defect, unspecified SNOMED: 20898256 (10) Sepsis ICD Codes: A41.9 - Sepsis, unspecified organism SNOMED: 52866960 (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 (12) Abnormal LFTs ICD Codes: R94.5 - Abnormal results of liver function studies SNOMED: 395122305 Status: progressing Assessment/Plan: intracranial hemorrhge stable alert coagulapathy resolved abx per id etoh cirhosis hepatic encephalpathy sepsis Subjective ROS Limited/Unobtainable: Yes Allergies: Coded Allergies: PENICILLINS (Verified Allergy, Unknown, 02/10/17) Uncoded Allergies: PENICILLIN (Allergy, Unknown, 05/15/19) Objective Last 24 Hour Vital Signs Date Time Temp Pulse Resp B/P (MAP) Pulse Ox O2 Delivery O2 Flow Rate FiO2 08/21/19 20:18 79 154/95 08/21/19 20:00 Room Air 08/21/19 20:00 98.2 79 20 154/95 (114) 100 08/21/19 19:24 80 08/21/19 16:06 79 08/21/19 16:00 Room Air 08/21/19 16:00 98.4 74 20 146/88 (107) 98 08/21/19 13:12 149/85 08/21/19 12:00 98.6 73 20 149/85 (106) 100 08/21/19 12:00 74 08/21/19 12:00 Room Air 08/21/19 09:44 84 130/83 08/21/19 09:44 84 130/83 08/21/19 09:43 130/83 08/21/19 08:00 Room Air 08/21/19 08:00 83 08/21/19 08:00 98.2 84 20 130/83 (99) 96 08/21/19 06:34 166/98 08/21/19 04:00 71 08/21/19 04:00 Room Air 08/21/19 04:00 98.8 72 20 135/73 (93) 97 08/21/19 00:00 70 08/21/19 00:00 Room Air 08/21/19 00:00 98.8 67 20 145/89 (107) 97 08/20/19 22:15 163/85 Intake and Output 08/20/19 08/21/19 19:00 07:00 Intake Total 725.000 ml 515.000 ml Output Total 1100 ml 800 ml Balance -375.000 ml -285.000 ml Intake Oral 450 ml 240 ml IV Total 275.000 ml 275.000 ml Output Urine Total 1100 ml 800 ml # Bowel Movements 2 Laboratory Tests 08/21/19 04:00: White Blood Count 6.0, Red Blood Count 3.48L, Hemoglobin 11.5L, Hematocrit 33.7L , Mean Corpuscular Volume 97, Mean Corpuscular Hemoglobin 33.2H, Mean Corpuscular Hemoglobin Concent 34.2, Red Cell Distribution Width 11.7, Platelet Count 162, Mean Platelet Volume 6.2L, Neutrophils (%) (Auto) 40.7L, Lymphocytes (%) (Auto) 40.4, Monocytes (%) (Auto) 11.2H, Eosinophils (%) (Auto) 5.9H, Basophils (%) (Auto) 1.8, Sodium Level 141, Potassium Level 3.8, Chloride Level 108H, Carbon Dioxide Level 28, Anion Gap 5, Blood Urea Nitrogen 13, Creatinine 1.1, Estimat Glomerular Filtration Rate > 60, Glucose Level 122H, Calcium Level 8.3L, Phosphorus Level 3.4, Magnesium Level 1.6L, Total Bilirubin 0.8, Aspartate Amino Transf (AST/SGOT) 108H, Alanine Aminotransferase (ALT/SGPT) 54, Alkaline Phosphatase 70, C-Reactive Protein, Quantitative 1.0H, Pro-B-Type Natriuretic Peptide 1610H, Total Protein 7.4, Albumin 2.0L, Globulin 5.4, Albumin/Globulin Ratio 0.4L Height (Feet): 6 Height (Inches): 1.00 Weight (Pounds): 230 Cardiovascular: normal peripheral pulses Respiratory/Chest: lungs clear Esthela Arauz MD Aug 21, 2019 21:42
[2019-08-22] VITALS: BP 132/72
[2019-08-22 04:00] VITALS: BP 155/79
[2019-08-22] MEDS: Vancomycin 1 GM in D5W 275 ML IVPB SCH (04:24)
[2019-08-22 05:15] LABS: BASOPHILS % (AUTO) 2.4 % (0.0-2.0); EOSINOPHILS % (AUTO) 5.3 % (0.0-3.0); HEMATOCRIT 33.5 % (42.0-52.0); HEMOGLOBIN 11.8 G/DL (14.2-18.0); LYMPHOCYTES % (AUTO) 43.2 % (20.0-45.0); MEAN CORPUSCULAR VOLUME 94 FL (80-99); MONOCYTES % (AUTO) 11.7 % (1.0-10.0); NEUTROPHILS % (AUTO) 37.4 % (45.0-75.0); PLATELET COUNT 161 K/UL (150-450); RED BLOOD COUNT 3.57 M/UL (4.70-6.10); WHITE BLOOD COUNT 5.2 K/UL (4.8-10.8)
[2019-08-22] MEDS: HydrALAZINE 50mg tab ORAL SCH ×4 (05:36→21:25)
[2019-08-22 05:37] LABS: ALANINE AMINOTRANSFERASE 58 U/L (12-78); ALBUMIN/GLOBULIN RATIO 0.4 (1.0-2.7); ALKALINE PHOSPHATASE 72 U/L (46-116); ANION GAP 8 mmol/L (5-15); ASPARTATE AMINO TRANSFERASE 112 U/L (15-37); BILIRUBIN,TOTAL 0.8 MG/DL (0.2-1.0); BLOOD UREA NITROGEN 14 mg/dL (7-18); CALCIUM 8.2 MG/DL (8.5-10.1); CARBON DIOXIDE 26 MMOL/L (21-32); CHLORIDE 107 MMOL/L (98-107); CREATININE 1.2 MG/DL (0.55-1.30); POTASSIUM 3.8 MMOL/L (3.5-5.1); SODIUM 141 MMOL/L (136-145)
[2019-08-22 08:00] VITALS: BP 145/74
--- NOTE | 2019-08-22 08:31 | General Progress Note ---
Assessment/Plan Assessment/Plan: (1) B/L LE pain (2) Left tibia fracture (3) Right non healing ulcer (4) Peripheral Neuropathy (5) Cocaine abuse Patient will be continued on Morphine. D/w Dr. Romano and he concurred. Subjective Date patient seen: Aug 22, 2019 Time patient seen: 07:30 - am Allergies: Coded Allergies: PENICILLINS (Verified Allergy, Unknown, 02/10/17) Uncoded Allergies: PENICILLIN (Allergy, Unknown, 05/15/19) Subjective Constitutional: Reports: weakness HEENT: Reports: no symptoms Cardiovascular: Reports: no symptoms Respiratory: Reports: no symptoms Gastrointestinal/Abdominal: Reports: no symptoms Genitourinary: Reports: no symptoms Neurologic/Psychiatric: Reports: weakness Endocrine: Reports: no symptoms Hematologic/Lymphatic: Reports: no symptoms Subjective Patient is in bed no c/o pain and no signs of distress. Has not requested the Morphine in the last 24hrs. Objective Last 24 Hour Vital Signs Date Time Temp Pulse Resp B/P (MAP) Pulse Ox O2 Delivery O2 Flow Rate FiO2 08/22/19 05:36 165/94 08/22/19 04:00 Room Air 08/22/19 04:00 98.2 74 19 155/79 (104) 99 08/22/19 03:28 77 08/22/19 00:00 Room Air 08/22/19 00:00 98.5 68 21 132/72 (92) 99 08/22/19 00:00 80 08/21/19 22:16 146/80 08/21/19 20:18 79 154/95 08/21/19 20:00 Room Air 08/21/19 20:00 98.2 79 20 154/95 (114) 100 08/21/19 19:24 80 08/21/19 16:06 79 08/21/19 16:00 Room Air 08/21/19 16:00 98.4 74 20 146/88 (107) 98 08/21/19 13:12 149/85 08/21/19 12:00 98.6 73 20 149/85 (106) 100 08/21/19 12:00 74 08/21/19 12:00 Room Air 08/21/19 09:44 84 130/83 08/21/19 09:44 84 130/83 08/21/19 09:43 130/83 Intake and Output 08/21/19 08/22/19 19:00 07:00 Intake Total 1175.000 ml 183.708 ml Output Total 1200 ml 2000 ml Balance -25.000 ml -1816.292 ml Intake Oral 600 ml IV Total 575.000 ml 183.708 ml Output Urine Total 1200 ml 2000 ml # Bowel Movements 2 Laboratory Tests 08/22/19 04:00: White Blood Count 5.2, Red Blood Count 3.57L, Hemoglobin 11.8L, Hematocrit 33.5L , Mean Corpuscular Volume 94, Mean Corpuscular Hemoglobin 33.2H, Mean Corpuscular Hemoglobin Concent 35.3, Red Cell Distribution Width 11.0L, Platelet Count 161, Mean Platelet Volume 7.3, Neutrophils (%) (Auto) 37.4L, Lymphocytes (%) (Auto) 43.2, Monocytes (%) (Auto) 11.7H, Eosinophils (%) (Auto) 5.3H, Basophils (%) (Auto) 2.4H, Sodium Level 141, Potassium Level 3.8, Chloride Level 107, Carbon Dioxide Level 26, Anion Gap 8, Blood Urea Nitrogen 14 , Creatinine 1.2, Estimat Glomerular Filtration Rate > 60, Glucose Level 196H, Calcium Level 8.2L, Total Bilirubin 0.8, Aspartate Amino Transf (AST/SGOT) 112H , Alanine Aminotransferase (ALT/SGPT) 58, Alkaline Phosphatase 72, Total Protein 7.3, Albumin 2.0L, Globulin 5.3, Albumin/Globulin Ratio 0.4L Height (Feet): 6 Height (Inches): 1.00 Weight (Pounds): 225 Objective General Appearance: no apparent distress, confused HEENT: normocephalic Neck: non-tender, supple Respiratory/Chest: decreased breath sounds Abdomen: non tender, soft Extremities: other - left LE in cast, right LE bandages applied Neurologic: alert, responsive Giuliano Liu Aug 22, 2019 08:31
[2019-08-22] MEDS: Ciprofloxacin 500mg tab ORAL SCH ×2 (08:33→21:25)
[2019-08-22] MEDS: Thiamine 100mg tab ORAL SCH (08:33)
[2019-08-22] MEDS: Nitroglycerin Patch 0.4mg TDERMAL SCH (08:34)
[2019-08-22] MEDS: Metoprolol Tartrate 50mg tab ORAL SCH ×2 (08:34→21:25)
[2019-08-22] MEDS: Dakin's 0.125% Soln (Quarter Strength) 16oz TOPIC SCH (08:35)
--- NOTE | 2019-08-22 10:20 | Surgery Progress Note ---
Surgery Progress Note Subjective Additional Comments Patient seen and examined bedside. No complaints. States he has no pain. Tolerating diet and comfortable. Right leg dressing clean dry and intact. Skin flaking off dry. Objective Last 24 Hour Vital Signs Date Time Temp Pulse Resp B/P (MAP) Pulse Ox O2 Delivery O2 Flow Rate FiO2 08/22/19 09:00 Room Air 08/22/19 08:34 145/74 08/22/19 08:34 72 145/74 08/22/19 08:33 72 145/74 08/22/19 08:00 98.9 72 19 145/74 (97) 99 08/22/19 05:36 165/94 08/22/19 04:00 Room Air 08/22/19 04:00 98.2 74 19 155/79 (104) 99 08/22/19 03:28 77 08/22/19 00:00 Room Air 08/22/19 00:00 98.5 68 21 132/72 (92) 99 08/22/19 00:00 80 08/21/19 22:16 146/80 08/21/19 20:18 79 154/95 08/21/19 20:00 Room Air 08/21/19 20:00 98.2 79 20 154/95 (114) 100 08/21/19 19:24 80 08/21/19 16:06 79 08/21/19 16:00 Room Air 08/21/19 16:00 98.4 74 20 146/88 (107) 98 08/21/19 13:12 149/85 08/21/19 12:00 98.6 73 20 149/85 (106) 100 08/21/19 12:00 74 08/21/19 12:00 Room Air I&O Intake and Output 08/21/19 08/22/19 19:00 07:00 Intake Total 1175.000 ml 183.708 ml Output Total 1200 ml 2000 ml Balance -25.000 ml -1816.292 ml Intake Oral 600 ml IV Total 575.000 ml 183.708 ml Output Urine Total 1200 ml 2000 ml # Bowel Movements 2 Dressing: dry Wound: clean Cardiovascular: RSR Respiratory: clear Abdomen: soft, flat, present bowel sounds, non-distended Extremities: no edema, no tenderness, no cyanosis Laboratory Tests Test 08/22/19 04:00 White Blood Count 5.2 K/UL (4.8-10.8) Red Blood Count 3.57 M/UL (4.70-6.10) L Hemoglobin 11.8 G/DL (14.2-18.0) L Hematocrit 33.5 % (42.0-52.0) L Mean Corpuscular Volume 94 FL (80-99) Mean Corpuscular Hemoglobin 33.2 PG (27.0-31.0) H Mean Corpuscular Hemoglobin Concent 35.3 G/DL (32.0-36.0) Red Cell Distribution Width 11.0 % (11.6-14.8) L Platelet Count 161 K/UL (150-450) Mean Platelet Volume 7.3 FL (6.5-10.1) Neutrophils (%) (Auto) 37.4 % (45.0-75.0) L Lymphocytes (%) (Auto) 43.2 % (20.0-45.0) Monocytes (%) (Auto) 11.7 % (1.0-10.0) H Eosinophils (%) (Auto) 5.3 % (0.0-3.0) H Basophils (%) (Auto) 2.4 % (0.0-2.0) H Sodium Level 141 MMOL/L (136-145) Potassium Level 3.8 MMOL/L (3.5-5.1) Chloride Level 107 MMOL/L (98-107) Carbon Dioxide Level 26 MMOL/L (21-32) Anion Gap 8 mmol/L (5-15) Blood Urea Nitrogen 14 mg/dL (7-18) Creatinine 1.2 MG/DL (0.55-1.30) Estimat Glomerular Filtration Rate > 60 mL/min (>60) Glucose Level 196 MG/DL (74-106) H Calcium Level 8.2 MG/DL (8.5-10.1) L Total Bilirubin 0.8 MG/DL (0.2-1.0) Aspartate Amino Transf (AST/SGOT) 112 U/L (15-37) H Alanine Aminotransferase (ALT/SGPT) 58 U/L (12-78) Alkaline Phosphatase 72 U/L (46-116) Total Protein 7.3 G/DL (6.4-8.2) Albumin 2.0 G/DL (3.4-5.0) L Globulin 5.3 g/dL Albumin/Globulin Ratio 0.4 (1.0-2.7) L Plan Problems: (1) 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 Wounds Right lower ext are malodorous. Irregular shaped ulcers with fibrinous slough vaibhav, medial and posterior R tibia,wounds oozing seropurulent exudate.Surrounding Xerosis skin noted. Large ulcer noted to dorsal R foot. Fibrinous slough at base of wound with macerated borders. Ulcers dorsal and web space of R 1st metatarsal oozing serosanguineous exudate. Small amt sanguineous exudate noted. R heel boggy,tender when palpated. RLE and R foot thoroughly washed ,gently scrubbed and moisturized to remove thick scaly skin. Post cleansing wounds are still malodorous. Pt stated he had wounds for considerable time but denied ever seeking medical attention for wounds. No other skin concerns noted.Pt has Splint L lower ext. Tx.Plan: Cleanse wounds RLE and R foot with Dakin's 0.125% solution. Apply TheraHoney. Cover each wound with Maxsorb Extra(Calcium Alginate) Apply Abd Pads and wrap with Kerlix from base of toes to below knee. Elevate leg on pillows. Reposition at least every 2hours or as tolerated. (2) Fracture of distal end of left tibia Assessment & Plan: No acute fracture, malalignment, or periosteal reaction are identified. Soft tissues are unremarkable. The AP or frontal projection is limited by the presence of a posterior splint. Impression: No obvious acute injury. (3) Osteomyelitis of foot, right, acute Assessment & Plan: No acute fracture, malalignment, or periosteal reaction are identified. Soft tissues are unremarkable. The AP or frontal projection is limited by the presence of a posterior splint. Impression: No obvious acute injury. No evidence of acute osteomyelitis or abscess in the area of clinical concern. Generalized subcutaneous edema which is nonspecific but may be due to cellulitis. (4) Cellulitis Assessment & Plan: as above abx as per ID improved (5) Abnormal LFTs Assessment & Plan: hx of liver insufficiency / disease lft's mildly elevated Suspected chronic liver disease with surface nodularity and heterogeneous coarsened echotexture. No ascites. Mild thickening of the gallbladder wall nonspecific. Chronic liver disease/cirrhosis with signs of portal hypertension including trace ascites, anasarca, mesenteric edema and portosystemic varices in the distal esophagus. Spleen is normal size. will follow with recs trends labs labs improved d/c planning Patrick Ga Aug 22, 2019 10:20
--- NOTE | 2019-08-22 10:59 | Hematology/Onc Progress Note ---
Assessment/Plan Assessment/Plan Assessment and Recs: # Intracranial bleed - 17 x 6 x 8 mm acute to subacute hematoma in the left upper thalamus/morales radiata. Little to no edema or mass effect associated with this. --> has been seen by neuro, requires better bp care --> correct plt, hgb as well as inr as needed --> has been given vit K 10mg iv or sq is okay --> monitor for bleed, if persists consider ffp though inr is 1.2-1.3 --> BETTER BP control # Anemia of chronic disease --> anemia panel has been reviewed --> no e/o hemolysis --> currently stable, approx 11 # Thrombocytopenia likely due to chirrhosis --> plt count 124-->141k --> have reviewed, hep C + --> will need outpatient hep C+ management --> afp ordered # Mild atrophy of the brain. 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 Subjective Constitutional: Denies: no symptoms, chills, fever, malaise, weakness, other HEENT: Denies: no symptoms, eye pain, blurred vision, tearing, double vision, ear pain, ear discharge, nose pain, nose congestion, throat pain, throat swelling, mouth pain, mouth swelling, other Cardiovascular: Denies: no symptoms, chest pain, edema, irregular heart rate, lightheadedness, palpitations, syncope, other Gastrointestinal/Abdominal: Denies: no symptoms, abdomen distended, abdominal pain, black stools, tarry stools, blood in stool, constipated, diarrhea, difficulty swallowing, nausea, poor appetite, poor fluid intake, rectal bleeding , vomiting, other Genitourinary: Denies: no symptoms, burning, discharge, frequency, flank pain, hematuria, incontinence, pain, urgency, other Neurologic/Psychiatric: Denies: no symptoms, anxiety, depressed, emotional problems, headache, numbness, paresthesia, pre-existing deficit, seizure, tingling, tremors, weakness, other Endocrine: Denies: no symptoms, excessive sweating, flushing, intolerance to cold, intolerance to heat, increased hunger, increased thirst, increased urine, unexplained weight gain, unexplained weight loss, other Allergies: Coded Allergies: PENICILLINS (Verified Allergy, Unknown, 02/10/17) Uncoded Allergies: PENICILLIN (Allergy, Unknown, 05/15/19) Subjective 08/20: requires bp control of hematoma nonsurgical care, bp mildly high in afternoon 08/22: on vanc, with picc, no events, labs noted Objective Objective Current Medications Medications (Trade) Dose Ordered Sig/Sharla Route PRN Reason Start Time Stop Time Status Last Admin Dose Admin Amlodipine Besylate (Norvasc) 5 mg DAILY ORAL 08/22/19 09:00 09/17/19 08:59 08/22/19 08:33 Chlorhexidine Gluconate (Chastity-Hex 2%) 1 applic DAILY@1999 TOPIC 08/22/19 20:00 09/17/19 19:59 Ciprofloxacin (Cipro 500mg tab) 500 mg EVERY 12 HOURS ORAL 08/22/19 09:00 08/26/19 09:59 08/22/19 08:33 Hydralazine HCl (Apresoline) 50 mg EVERY 8 HOURS ORAL 08/22/19 06:00 09/16/19 21:59 Metoprolol Tartrate (Lopressor) 50 mg EVERY 12 HOURS ORAL 08/22/19 09:00 09/16/19 20:59 08/22/19 08:34 Morphine Sulfate (Morphine Sulfate) 2 mg Q4H PRN IVP severe pain 08/22/19 06:30 08/24/19 14:26 Nitroglycerin (Ntg) 1 patch Q24H TDERMAL 08/22/19 09:00 09/17/19 08:59 08/22/19 08:34 Pantoprazole (Protonix) 40 mg DAILY ORAL 08/22/19 09:00 09/18/19 08:59 08/22/19 08:34 Potassium Chloride (K-Dur) 40 meq DAILY ORAL 08/22/19 09:00 09/18/19 08:59 08/22/19 08:33 Sodium Hypochlorite (Dakin's Quarter Strength) 1 applic DAILY TOPIC 08/22/19 09:00 09/19/19 08:59 08/22/19 08:35 Thiamine HCl (Vitamin B1) 100 mg DAILY ORAL 08/22/19 09:00 09/19/19 08:59 08/22/19 08:33 Vancomycin HCl (Vanco rx to dose) 1 ea DAILY PRN MISC Per rx protocol 08/22/19 09:00 09/17/19 18:29 Vancomycin HCl 1 gm/Dextrose 275 ml @ 183.708 mls/hr Q12HR@0500,1700 IVPB 08/22/19 17:00 08/24/19 04:59 Last 24 Hour Vital Signs Date Time Temp Pulse Resp B/P (MAP) Pulse Ox O2 Delivery O2 Flow Rate FiO2 08/22/19 09:00 Room Air 08/22/19 08:34 145/74 08/22/19 08:34 72 145/74 08/22/19 08:33 72 145/74 08/22/19 08:00 98.9 72 19 145/74 (97) 99 08/22/19 05:36 165/94 08/22/19 04:00 Room Air 08/22/19 04:00 98.2 74 19 155/79 (104) 99 08/22/19 03:28 77 08/22/19 00:00 Room Air 08/22/19 00:00 98.5 68 21 132/72 (92) 99 08/22/19 00:00 80 08/21/19 22:16 146/80 08/21/19 20:18 79 154/95 08/21/19 20:00 Room Air 08/21/19 20:00 98.2 79 20 154/95 (114) 100 08/21/19 19:24 80 08/21/19 16:06 79 08/21/19 16:00 Room Air 08/21/19 16:00 98.4 74 20 146/88 (107) 98 08/21/19 13:12 149/85 08/21/19 12:00 98.6 73 20 149/85 (106) 100 08/21/19 12:00 74 08/21/19 12:00 Room Air 08/21/19 09:44 84 130/83 08/21/19 09:44 84 130/83 08/21/19 09:43 130/83 08/21/19 08:00 Room Air 08/21/19 08:00 83 08/21/19 08:00 98.2 84 20 130/83 (99) 96 08/21/19 06:34 166/98 08/21/19 04:00 71 08/21/19 04:00 Room Air 08/21/19 04:00 98.8 72 20 135/73 (93) 97 08/21/19 00:00 70 08/21/19 00:00 Room Air 08/21/19 00:00 98.8 67 20 145/89 (107) 97 08/20/19 22:15 163/85 08/20/19 21:01 78 159/88 08/20/19 20:00 Room Air 08/20/19 20:00 99.0 69 20 159/88 (111) 97 08/20/19 20:00 75 08/20/19 16:00 Room Air 08/20/19 16:00 98.4 82 20 149/88 (108) 98 08/20/19 15:11 81 08/20/19 14:00 165/92 08/20/19 12:00 Room Air 08/20/19 12:00 100.0 78 20 165/92 (116) 95 08/20/19 11:36 83 Intake and Output 08/21/19 08/22/19 19:00 07:00 Intake Total 1175.000 ml 183.708 ml Output Total 1200 ml 2000 ml Balance -25.000 ml -1816.292 ml Intake Oral 600 ml IV Total 575.000 ml 183.708 ml Output Urine Total 1200 ml 2000 ml # Bowel Movements 2 Labs Test 08/21/19 04:00 08/22/19 04:00 White Blood Count 6.0 K/UL (4.8-10.8) 5.2 K/UL (4.8-10.8) Red Blood Count 3.48 M/UL (4.70-6.10) 3.57 M/UL (4.70-6.10) Hemoglobin 11.5 G/DL (14.2-18.0) 11.8 G/DL (14.2-18.0) Hematocrit 33.7 % (42.0-52.0) 33.5 % (42.0-52.0) Mean Corpuscular Volume 97 FL (80-99) 94 FL (80-99) Mean Corpuscular Hemoglobin 33.2 PG (27.0-31.0) 33.2 PG (27.0-31.0) Mean Corpuscular Hemoglobin Concent 34.2 G/DL (32.0-36.0) 35.3 G/DL (32.0-36.0) Red Cell Distribution Width 11.7 % (11.6-14.8) 11.0 % (11.6-14.8) Platelet Count 162 K/UL (150-450) 161 K/UL (150-450) Mean Platelet Volume 6.2 FL (6.5-10.1) 7.3 FL (6.5-10.1) Neutrophils (%) (Auto) 40.7 % (45.0-75.0) 37.4 % (45.0-75.0) Lymphocytes (%) (Auto) 40.4 % (20.0-45.0) 43.2 % (20.0-45.0) Monocytes (%) (Auto) 11.2 % (1.0-10.0) 11.7 % (1.0-10.0) Eosinophils (%) (Auto) 5.9 % (0.0-3.0) 5.3 % (0.0-3.0) Basophils (%) (Auto) 1.8 % (0.0-2.0) 2.4 % (0.0-2.0) Sodium Level 141 MMOL/L (136-145) 141 MMOL/L (136-145) Potassium Level 3.8 MMOL/L (3.5-5.1) 3.8 MMOL/L (3.5-5.1) Chloride Level 108 MMOL/L (98-107) 107 MMOL/L (98-107) Carbon Dioxide Level 28 MMOL/L (21-32) 26 MMOL/L (21-32) Anion Gap 5 mmol/L (5-15) 8 mmol/L (5-15) Blood Urea Nitrogen 13 mg/dL (7-18) 14 mg/dL (7-18) Creatinine 1.1 MG/DL (0.55-1.30) 1.2 MG/DL (0.55-1.30) Estimat Glomerular Filtration Rate > 60 mL/min (>60) > 60 mL/min (>60) Glucose Level 122 MG/DL (74-106) 196 MG/DL (74-106) Calcium Level 8.3 MG/DL (8.5-10.1) 8.2 MG/DL (8.5-10.1) Phosphorus Level 3.4 MG/DL (2.5-4.9) Magnesium Level 1.6 MG/DL (1.8-2.4) Total Bilirubin 0.8 MG/DL (0.2-1.0) 0.8 MG/DL (0.2-1.0) Aspartate Amino Transf (AST/SGOT) 108 U/L (15-37) 112 U/L (15-37) Alanine Aminotransferase (ALT/SGPT) 54 U/L (12-78) 58 U/L (12-78) Alkaline Phosphatase 70 U/L (46-116) 72 U/L (46-116) C-Reactive Protein, Quantitative 1.0 mg/dL (0.00-0.90) Pro-B-Type Natriuretic Peptide 1610 pg/mL (0-125) Total Protein 7.4 G/DL (6.4-8.2) 7.3 G/DL (6.4-8.2) Albumin 2.0 G/DL (3.4-5.0) 2.0 G/DL (3.4-5.0) Globulin 5.4 g/dL 5.3 g/dL Albumin/Globulin Ratio 0.4 (1.0-2.7) 0.4 (1.0-2.7) Height (Feet): 6 Height (Inches): 1.00 Weight (Pounds): 225 Objective PE General: alert, mild distress, other - disheveled Neck: normal inspection Respiratory: chest non-tender, lungs clear, normal breath sounds Cardiovascular: tachycardia Gastrointestinal: normal bowel sounds, non tender, soft, non-distended, no guarding, no rebound Genitourinary: no CVA tenderness Musculoskeletal: tender - L ankle swelling Neurologic: alert, motor strength/tone normal, sensory intact, speech normal, other - moaning. agitated Skin: other - erythema/weeping skin LLE. ulceration noted Luis M Carlin MD Aug 22, 2019 10:59
--- NOTE | 2019-08-22 11:13 | Infectious Diseases Prog Note ---
Assessment/Plan Assessment/Plan IMPRESSION: 1. Sepsis with fever and tachycardia. 2. Bilateral leg cellulitis. 3. penicillin allergy 4. Intracranial bleeding & hematoma. 5. Liver cirrhosis. 6. Diabetes mellitus with peripheral neuropathy. 7. Hypertension. 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 leg MRI: negative for osteomyelitis Subjective ROS Limited/Unobtainable: No Constitutional: Reports: no symptoms Respiratory: Reports: no symptoms Cardiovascular: Reports: no symptoms Gastrointestinal/Abdominal: Reports: no symptoms Genitourinary: Reports: no symptoms Allergies: Coded Allergies: PENICILLINS (Verified Allergy, Unknown, 02/10/17) Uncoded Allergies: PENICILLIN (Allergy, Unknown, 05/15/19) Objective Vital Signs Last 24 Hour Vital Signs Date Time Temp Pulse Resp B/P (MAP) Pulse Ox O2 Delivery O2 Flow Rate FiO2 08/22/19 09:00 Room Air 08/22/19 08:34 145/74 08/22/19 08:34 72 145/74 08/22/19 08:33 72 145/74 08/22/19 08:00 98.9 72 19 145/74 (97) 99 08/22/19 05:36 165/94 08/22/19 04:00 Room Air 08/22/19 04:00 98.2 74 19 155/79 (104) 99 08/22/19 03:28 77 08/22/19 00:00 Room Air 08/22/19 00:00 98.5 68 21 132/72 (92) 99 08/22/19 00:00 80 08/21/19 22:16 146/80 08/21/19 20:18 79 154/95 08/21/19 20:00 Room Air 08/21/19 20:00 98.2 79 20 154/95 (114) 100 08/21/19 19:24 80 08/21/19 16:06 79 08/21/19 16:00 Room Air 08/21/19 16:00 98.4 74 20 146/88 (107) 98 08/21/19 13:12 149/85 08/21/19 12:00 98.6 73 20 149/85 (106) 100 08/21/19 12:00 74 08/21/19 12:00 Room Air Height (Feet): 6 Height (Inches): 1.00 Weight (Pounds): 225 General Appearance: no acute distress HEENT: mucous membranes moist Respiratory/Chest: lungs clear Cardiovascular: normal rate Abdomen: soft, non tender Extremities: no edema Skin: ulcers, other - legs Neurologic/Psychiatric: alert, responsive Laboratory Tests Test 08/22/19 04:00 White Blood Count 5.2 K/UL (4.8-10.8) Red Blood Count 3.57 M/UL (4.70-6.10) L Hemoglobin 11.8 G/DL (14.2-18.0) L Hematocrit 33.5 % (42.0-52.0) L Mean Corpuscular Volume 94 FL (80-99) Mean Corpuscular Hemoglobin 33.2 PG (27.0-31.0) H Mean Corpuscular Hemoglobin Concent 35.3 G/DL (32.0-36.0) Red Cell Distribution Width 11.0 % (11.6-14.8) L Platelet Count 161 K/UL (150-450) Mean Platelet Volume 7.3 FL (6.5-10.1) Neutrophils (%) (Auto) 37.4 % (45.0-75.0) L Lymphocytes (%) (Auto) 43.2 % (20.0-45.0) Monocytes (%) (Auto) 11.7 % (1.0-10.0) H Eosinophils (%) (Auto) 5.3 % (0.0-3.0) H Basophils (%) (Auto) 2.4 % (0.0-2.0) H Sodium Level 141 MMOL/L (136-145) Potassium Level 3.8 MMOL/L (3.5-5.1) Chloride Level 107 MMOL/L (98-107) Carbon Dioxide Level 26 MMOL/L (21-32) Anion Gap 8 mmol/L (5-15) Blood Urea Nitrogen 14 mg/dL (7-18) Creatinine 1.2 MG/DL (0.55-1.30) Estimat Glomerular Filtration Rate > 60 mL/min (>60) Glucose Level 196 MG/DL (74-106) H Calcium Level 8.2 MG/DL (8.5-10.1) L Total Bilirubin 0.8 MG/DL (0.2-1.0) Aspartate Amino Transf (AST/SGOT) 112 U/L (15-37) H Alanine Aminotransferase (ALT/SGPT) 58 U/L (12-78) Alkaline Phosphatase 72 U/L (46-116) Total Protein 7.3 G/DL (6.4-8.2) Albumin 2.0 G/DL (3.4-5.0) L Globulin 5.3 g/dL Albumin/Globulin Ratio 0.4 (1.0-2.7) L Current Medications Medications (Trade) Dose Ordered Sig/Sharla Route PRN Reason Start Time Stop Time Status Last Admin Dose Admin Amlodipine Besylate (Norvasc) 5 mg DAILY ORAL 08/22/19 09:00 09/17/19 08:59 08/22/19 08:33 Chlorhexidine Gluconate (Chastity-Hex 2%) 1 applic DAILY@1999 TOPIC 08/22/19 20:00 09/17/19 19:59 Ciprofloxacin (Cipro 500mg tab) 500 mg EVERY 12 HOURS ORAL 08/22/19 09:00 08/26/19 09:59 08/22/19 08:33 Hydralazine HCl (Apresoline) 50 mg EVERY 8 HOURS ORAL 08/22/19 06:00 09/16/19 21:59 Metoprolol Tartrate (Lopressor) 50 mg EVERY 12 HOURS ORAL 08/22/19 09:00 09/16/19 20:59 08/22/19 08:34 Morphine Sulfate (Morphine Sulfate) 2 mg Q4H PRN IVP severe pain 08/22/19 06:30 08/24/19 14:26 Nitroglycerin (Ntg) 1 patch Q24H TDERMAL 08/22/19 09:00 09/17/19 08:59 08/22/19 08:34 Pantoprazole (Protonix) 40 mg DAILY ORAL 08/22/19 09:00 09/18/19 08:59 08/22/19 08:34 Potassium Chloride (K-Dur) 40 meq DAILY ORAL 08/22/19 09:00 09/18/19 08:59 08/22/19 08:33 Sodium Hypochlorite (Dakin's Quarter Strength) 1 applic DAILY TOPIC 08/22/19 09:00 09/19/19 08:59 08/22/19 08:35 Thiamine HCl (Vitamin B1) 100 mg DAILY ORAL 08/22/19 09:00 09/19/19 08:59 08/22/19 08:33 Vancomycin HCl (Vanco rx to dose) 1 ea DAILY PRN MISC Per rx protocol 08/22/19 09:00 09/17/19 18:29 Vancomycin HCl 1 gm/Dextrose 275 ml @ 183.708 mls/hr Q12HR@0500,1700 IVPB 08/22/19 17:00 08/24/19 04:59 Edis Irving MD Aug 22, 2019 11:13
[2019-08-22 12:00] VITALS: BP 129/67
--- NOTE | 2019-08-22 12:31 | Nephrology Progress Note ---
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 He has a new left thalamic hematoma, most likely secondary to his hypertensive vascular disease. Neuro: Plan MS susannah I HAD MD-MD CONVERSATION YESTERDAY WITH LUIS ENRIQUE. I WAS TOLD THAT THE THALAMUS HEMATOMA IS NOT A NEUROSURGICAL OPERATIVE CASE. CAUSE BY HTN AND NEED TO HAVE BP CONTROL AND OBSERVE. DR MARTÍNEZ IS ALSO AGREEABLE to med-surg adjust BP meds- tolerating PO Arrange for SNF Hold mind altering meds hydrate neuro eval note antibiotics per consultants / Neuro Nitro Head CT: 17 x 6 x 8 mm acute to subacute hematoma in the left upper thalamus/morales radiata. Little to no edema or mass effect associated with this. Mild atrophy of the brain. Nonspecific white matter hypoattenuation probably due to chronic small vessel disease. Sinusitis Subjective ROS Limited/Unobtainable: No Objective Objective Last 24 Hour Vital Signs Date Time Temp Pulse Resp B/P (MAP) Pulse Ox O2 Delivery O2 Flow Rate FiO2 08/22/19 09:00 Room Air 08/22/19 08:34 145/74 08/22/19 08:34 72 145/74 08/22/19 08:33 72 145/74 08/22/19 08:00 98.9 72 19 145/74 (97) 99 08/22/19 05:36 165/94 08/22/19 04:00 Room Air 08/22/19 04:00 98.2 74 19 155/79 (104) 99 08/22/19 03:28 77 08/22/19 00:00 Room Air 08/22/19 00:00 98.5 68 21 132/72 (92) 99 08/22/19 00:00 80 08/21/19 22:16 146/80 08/21/19 20:18 79 154/95 08/21/19 20:00 Room Air 08/21/19 20:00 98.2 79 20 154/95 (114) 100 08/21/19 19:24 80 08/21/19 16:06 79 08/21/19 16:00 Room Air 08/21/19 16:00 98.4 74 20 146/88 (107) 98 08/21/19 13:12 149/85 Intake and Output 08/21/19 08/22/19 19:00 07:00 Intake Total 1175.000 ml 183.708 ml Output Total 1200 ml 2000 ml Balance -25.000 ml -1816.292 ml Intake Oral 600 ml IV Total 575.000 ml 183.708 ml Output Urine Total 1200 ml 2000 ml # Bowel Movements 2 Laboratory Tests 08/22/19 04:00: White Blood Count 5.2, Red Blood Count 3.57L, Hemoglobin 11.8L, Hematocrit 33.5L , Mean Corpuscular Volume 94, Mean Corpuscular Hemoglobin 33.2H, Mean Corpuscular Hemoglobin Concent 35.3, Red Cell Distribution Width 11.0L, Platelet Count 161, Mean Platelet Volume 7.3, Neutrophils (%) (Auto) 37.4L, Lymphocytes (%) (Auto) 43.2, Monocytes (%) (Auto) 11.7H, Eosinophils (%) (Auto) 5.3H, Basophils (%) (Auto) 2.4H, Sodium Level 141, Potassium Level 3.8, Chloride Level 107, Carbon Dioxide Level 26, Anion Gap 8, Blood Urea Nitrogen 14 , Creatinine 1.2, Estimat Glomerular Filtration Rate > 60, Glucose Level 196H, Calcium Level 8.2L, Total Bilirubin 0.8, Aspartate Amino Transf (AST/SGOT) 112H , Alanine Aminotransferase (ALT/SGPT) 58, Alkaline Phosphatase 72, Total Protein 7.3, Albumin 2.0L, Globulin 5.3, Albumin/Globulin Ratio 0.4L Height (Feet): 6 Height (Inches): 1.00 Weight (Pounds): 225 General Appearance: no apparent distress Objective no change Geoffrey Manzano MD Aug 22, 2019 12:31
[2019-08-22 16:00] VITALS: BP 132/69
[2019-08-22] MEDS ORDERED: Vancomycin 1 GM in D5W 275 ML IVPB SCH (17:00)
[2019-08-22 20:00] VITALS: BP 148/99
--- NOTE | 2019-08-22 20:37 | General Progress Note ---
Assessment/Plan Problem List: (1) Anemia ICD Codes: D64.9 - Anemia, unspecified SNOMED: 429563677 (2) Cellulitis ICD Codes: L03.90 - Cellulitis, unspecified SNOMED: 445683015 (3) Liver cirrhosis ICD Codes: K74.60 - Unspecified cirrhosis of liver SNOMED: 17697819 Qualifiers: Qualified Codes: K74.60 - Unspecified cirrhosis of liver (4) Drug abuse ICD Codes: F19.10 - Other psychoactive substance abuse, uncomplicated SNOMED: 01472661 (5) Peripheral neuropathy ICD Codes: G62.9 - Polyneuropathy, unspecified SNOMED: 180467619 Qualifiers: Qualified Codes: G62.9 - Polyneuropathy, unspecified (6) Fracture of distal end of left tibia ICD Codes: S82.302A - Unspecified fracture of lower end of left tibia, initial encounter for closed fracture SNOMED: 538335518 Qualifiers: Qualified Codes: S82.302A - Unspecified fracture of lower end of left tibia , initial encounter for closed fracture (7) Hepatitis C ICD Codes: B19.20 - Unspecified viral hepatitis C without hepatic coma SNOMED: 37561369 (8) Hepatic encephalopathy ICD Codes: K72.90 - Hepatic failure, unspecified without coma SNOMED: 73909918 (9) Coagulopathy ICD Codes: D68.9 - Coagulation defect, unspecified SNOMED: 10878564 (10) Sepsis ICD Codes: A41.9 - Sepsis, unspecified organism SNOMED: 21297923 (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 (12) Abnormal LFTs ICD Codes: R94.5 - Abnormal results of liver function studies SNOMED: 989386745 Status: progressing Assessment/Plan: a+febrile vitla etoh cirhosis hepatic encephalpathy sepsis vitals stable Subjective ROS Limited/Unobtainable: Yes Allergies: Coded Allergies: PENICILLINS (Verified Allergy, Unknown, 02/10/17) Uncoded Allergies: PENICILLIN (Allergy, Unknown, 05/15/19) Objective Last 24 Hour Vital Signs Date Time Temp Pulse Resp B/P (MAP) Pulse Ox O2 Delivery O2 Flow Rate FiO2 08/22/19 16:00 98.0 72 19 132/69 (90) 97 08/22/19 14:00 129/67 08/22/19 12:00 98.5 61 17 129/67 (87) 96 08/22/19 09:00 Room Air 08/22/19 08:34 145/74 08/22/19 08:34 72 145/74 08/22/19 08:33 72 145/74 08/22/19 08:00 98.9 72 19 145/74 (97) 99 08/22/19 05:36 165/94 08/22/19 04:00 Room Air 08/22/19 04:00 98.2 74 19 155/79 (104) 99 08/22/19 03:28 77 08/22/19 00:00 Room Air 08/22/19 00:00 98.5 68 21 132/72 (92) 99 08/22/19 00:00 80 08/21/19 22:16 146/80 Intake and Output 08/21/19 08/22/19 19:00 07:00 Intake Total 1175.000 ml 183.708 ml Output Total 1200 ml 2000 ml Balance -25.000 ml -1816.292 ml Intake Oral 600 ml IV Total 575.000 ml 183.708 ml Output Urine Total 1200 ml 2000 ml # Bowel Movements 2 Laboratory Tests 08/22/19 04:00: White Blood Count 5.2, Red Blood Count 3.57L, Hemoglobin 11.8L, Hematocrit 33.5L , Mean Corpuscular Volume 94, Mean Corpuscular Hemoglobin 33.2H, Mean Corpuscular Hemoglobin Concent 35.3, Red Cell Distribution Width 11.0L, Platelet Count 161, Mean Platelet Volume 7.3, Neutrophils (%) (Auto) 37.4L, Lymphocytes (%) (Auto) 43.2, Monocytes (%) (Auto) 11.7H, Eosinophils (%) (Auto) 5.3H, Basophils (%) (Auto) 2.4H, Sodium Level 141, Potassium Level 3.8, Chloride Level 107, Carbon Dioxide Level 26, Anion Gap 8, Blood Urea Nitrogen 14 , Creatinine 1.2, Estimat Glomerular Filtration Rate > 60, Glucose Level 196H, Calcium Level 8.2L, Total Bilirubin 0.8, Aspartate Amino Transf (AST/SGOT) 112H , Alanine Aminotransferase (ALT/SGPT) 58, Alkaline Phosphatase 72, Total Protein 7.3, Albumin 2.0L, Globulin 5.3, Albumin/Globulin Ratio 0.4L Height (Feet): 6 Height (Inches): 1.00 Weight (Pounds): 225 Cardiovascular: normal rate Respiratory/Chest: lungs clear Abdomen: soft Esthela Arauz MD Aug 22, 2019 20:37
--- NOTE | 2019-08-22 20:57 | General Progress Note ---
Assessment/Plan Status: progressing Assessment/Plan: Assessment - intracrainial bleed - cirrhosis per imaging - Hepatitis C - Hiatal hernia - LE edema - Anemia - minimally elevated NH3 - suspect incidental Recommendations - po as tolerated - neuro exams - outpatient HCV eradication Subjective Allergies: Coded Allergies: PENICILLINS (Verified Allergy, Unknown, 02/10/17) Uncoded Allergies: PENICILLIN (Allergy, Unknown, 05/15/19) Subjective Seen this am eating OK no abd complaints Objective Last 24 Hour Vital Signs Date Time Temp Pulse Resp B/P (MAP) Pulse Ox O2 Delivery O2 Flow Rate FiO2 08/22/19 16:00 98.0 72 19 132/69 (90) 97 08/22/19 14:00 129/67 08/22/19 12:00 98.5 61 17 129/67 (87) 96 08/22/19 09:00 Room Air 08/22/19 08:34 145/74 08/22/19 08:34 72 145/74 08/22/19 08:33 72 145/74 08/22/19 08:00 98.9 72 19 145/74 (97) 99 08/22/19 05:36 165/94 08/22/19 04:00 Room Air 08/22/19 04:00 98.2 74 19 155/79 (104) 99 08/22/19 03:28 77 08/22/19 00:00 Room Air 08/22/19 00:00 98.5 68 21 132/72 (92) 99 08/22/19 00:00 80 08/21/19 22:16 146/80 Intake and Output 08/21/19 08/22/19 19:00 07:00 Intake Total 1175.000 ml 183.708 ml Output Total 1200 ml 2000 ml Balance -25.000 ml -1816.292 ml Intake Oral 600 ml IV Total 575.000 ml 183.708 ml Output Urine Total 1200 ml 2000 ml # Bowel Movements 2 Laboratory Tests 08/22/19 04:00: White Blood Count 5.2, Red Blood Count 3.57L, Hemoglobin 11.8L, Hematocrit 33.5L , Mean Corpuscular Volume 94, Mean Corpuscular Hemoglobin 33.2H, Mean Corpuscular Hemoglobin Concent 35.3, Red Cell Distribution Width 11.0L, Platelet Count 161, Mean Platelet Volume 7.3, Neutrophils (%) (Auto) 37.4L, Lymphocytes (%) (Auto) 43.2, Monocytes (%) (Auto) 11.7H, Eosinophils (%) (Auto) 5.3H, Basophils (%) (Auto) 2.4H, Sodium Level 141, Potassium Level 3.8, Chloride Level 107, Carbon Dioxide Level 26, Anion Gap 8, Blood Urea Nitrogen 14 , Creatinine 1.2, Estimat Glomerular Filtration Rate > 60, Glucose Level 196H, Calcium Level 8.2L, Total Bilirubin 0.8, Aspartate Amino Transf (AST/SGOT) 112H , Alanine Aminotransferase (ALT/SGPT) 58, Alkaline Phosphatase 72, Total Protein 7.3, Albumin 2.0L, Globulin 5.3, Albumin/Globulin Ratio 0.4L Height (Feet): 6 Height (Inches): 1.00 Weight (Pounds): 225 Objective WDWN NCAT supple CTA RRR abd soft ND NT no edema Viktoria Chatterjee MD Aug 22, 2019 20:57
[2019-08-22] MEDS: Dyna-Hex 2% Top Sol 2oz TOPIC SCH (21:26)
[2019-08-23] VITALS: BP 142/74
[2019-08-23 04:00] VITALS: BP 130/70
[2019-08-23] MEDS: HydrALAZINE 50mg tab ORAL SCH ×3 (06:08→22:00)
[2019-08-23 08:00] VITALS: BP 136/60
--- NOTE | 2019-08-23 08:47 | General Progress Note ---
Assessment/Plan Assessment/Plan: (1) B/L LE pain (2) Left tibia fracture (3) Right non healing ulcer (4) Peripheral Neuropathy (5) Cocaine abuse Patient will be continued on Morphine. D/w Dr. Romano and he concurred. Subjective Date patient seen: Aug 23, 2019 Time patient seen: 07:30 - am Allergies: Coded Allergies: PENICILLINS (Verified Allergy, Unknown, 02/10/17) Uncoded Allergies: PENICILLIN (Allergy, Unknown, 05/15/19) Subjective Constitutional: Reports: weakness HEENT: Reports: no symptoms Cardiovascular: Reports: no symptoms Respiratory: Reports: no symptoms Gastrointestinal/Abdominal: Reports: no symptoms Genitourinary: Reports: no symptoms Neurologic/Psychiatric: Reports: weakness Endocrine: Reports: no symptoms Hematologic/Lymphatic: Reports: no symptoms Subjective Patient is in bed no c/o pain and shows no signs of pain or distress. Objective Last 24 Hour Vital Signs Date Time Temp Pulse Resp B/P (MAP) Pulse Ox O2 Delivery O2 Flow Rate FiO2 08/23/19 08:00 98.1 81 16 136/60 (85) 98 08/23/19 06:08 145/83 08/23/19 04:00 98.3 70 20 130/70 (90) 95 08/23/19 00:00 98.7 77 18 142/74 (96) 96 08/22/19 21:25 77 153/94 08/22/19 21:25 153/94 08/22/19 21:00 Room Air 08/22/19 20:00 98.6 72 20 148/99 (115) 95 08/22/19 16:00 98.0 72 19 132/69 (90) 97 08/22/19 14:00 129/67 08/22/19 12:00 98.5 61 17 129/67 (87) 96 08/22/19 09:00 Room Air Intake and Output 08/22/19 08/23/19 19:00 07:00 Intake Total 900 ml Output Total 600 ml Balance 900 ml -600 ml Other 900 ml Output Urine Total 600 ml # Bowel Movements 1 Height (Feet): 6 Height (Inches): 1.00 Weight (Pounds): 217 Objective General Appearance: no apparent distress, confused HEENT: normocephalic Neck: non-tender, supple Respiratory/Chest: decreased breath sounds Abdomen: non tender, soft Extremities: other - left LE in cast, right LE bandages applied Neurologic: alert, responsive Giuliano Liu Aug 23, 2019 08:47
[2019-08-23] MEDS: Ciprofloxacin 500mg tab ORAL SCH ×2 (08:53→20:13)
[2019-08-23] MEDS: Metoprolol Tartrate 50mg tab ORAL SCH ×2 (08:54→20:13)
[2019-08-23] MEDS: Thiamine 100mg tab ORAL SCH (08:54)
[2019-08-23] MEDS: Nitroglycerin Patch 0.4mg TDERMAL SCH (08:55)
[2019-08-23] MEDS: Dakin's 0.125% Soln (Quarter Strength) 16oz TOPIC SCH (08:55)
--- NOTE | 2019-08-23 09:53 | Surgery Progress Note ---
Surgery Progress Note Subjective Symptoms: improved, tolerating diet, voiding well, passing flatus, pain decreased Objective Last 24 Hour Vital Signs Date Time Temp Pulse Resp B/P (MAP) Pulse Ox O2 Delivery O2 Flow Rate FiO2 08/23/19 08:55 136/60 08/23/19 08:54 81 136/60 08/23/19 08:53 81 136/60 08/23/19 08:00 98.1 81 16 136/60 (85) 98 08/23/19 06:08 145/83 08/23/19 04:00 98.3 70 20 130/70 (90) 95 08/23/19 00:00 98.7 77 18 142/74 (96) 96 08/22/19 21:25 77 153/94 08/22/19 21:25 153/94 08/22/19 21:00 Room Air 08/22/19 20:00 98.6 72 20 148/99 (115) 95 08/22/19 16:00 98.0 72 19 132/69 (90) 97 08/22/19 14:00 129/67 08/22/19 12:00 98.5 61 17 129/67 (87) 96 I&O Intake and Output 08/22/19 08/23/19 19:00 07:00 Intake Total 900 ml Output Total 600 ml Balance 900 ml -600 ml Other 900 ml Output Urine Total 600 ml # Bowel Movements 1 Dressing: dry Wound: clean Cardiovascular: RSR Respiratory: clear Abdomen: soft, non-tender, present bowel sounds Extremities: no cyanosis, other - improving edema Plan Problems: (1) 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 Wounds Right lower ext are malodorous. Irregular shaped ulcers with fibrinous slough vaibhav, medial and posterior R tibia,wounds oozing seropurulent exudate.Surrounding Xerosis skin noted. Large ulcer noted to dorsal R foot. Fibrinous slough at base of wound with macerated borders. Ulcers dorsal and web space of R 1st metatarsal oozing serosanguineous exudate. Small amt sanguineous exudate noted. R heel boggy,tender when palpated. RLE and R foot thoroughly washed ,gently scrubbed and moisturized to remove thick scaly skin. Post cleansing wounds are still malodorous. Pt stated he had wounds for considerable time but denied ever seeking medical attention for wounds. No other skin concerns noted.Pt has Splint L lower ext. Tx.Plan: Cleanse wounds RLE and R foot with Dakin's 0.125% solution. Apply TheraHoney. Cover each wound with Maxsorb Extra(Calcium Alginate) Apply Abd Pads and wrap with Kerlix from base of toes to below knee. Elevate leg on pillows. Reposition at least every 2hours or as tolerated. (2) Fracture of distal end of left tibia Assessment & Plan: No acute fracture, malalignment, or periosteal reaction are identified. Soft tissues are unremarkable. The AP or frontal projection is limited by the presence of a posterior splint. Impression: No obvious acute injury. (3) Osteomyelitis of foot, right, acute Assessment & Plan: No acute fracture, malalignment, or periosteal reaction are identified. Soft tissues are unremarkable. The AP or frontal projection is limited by the presence of a posterior splint. Impression: No obvious acute injury. No evidence of acute osteomyelitis or abscess in the area of clinical concern. Generalized subcutaneous edema which is nonspecific but may be due to cellulitis. (4) Cellulitis Assessment & Plan: as above abx as per ID improved cont with current care (5) Abnormal LFTs Assessment & Plan: hx of liver insufficiency / disease lft's mildly elevated Suspected chronic liver disease with surface nodularity and heterogeneous coarsened echotexture. No ascites. Mild thickening of the gallbladder wall nonspecific. Chronic liver disease/cirrhosis with signs of portal hypertension including trace ascites, anasarca, mesenteric edema and portosystemic varices in the distal esophagus. Spleen is normal size. will follow with recs trends labs labs improved d/c planning Patrick Ga Aug 23, 2019 09:53
--- NOTE | 2019-08-23 10:42 | Hematology/Onc Progress Note ---
Assessment/Plan Assessment/Plan Assessment and Recs: # Intracranial bleed - 17 x 6 x 8 mm acute to subacute hematoma in the left upper thalamus/morales radiata. Little to no edema or mass effect associated with this. --> has been seen by neuro, requires better bp care --> correct plt, hgb as well as inr as needed --> has been given vit K 10mg iv or sq is okay --> monitor for bleed, if persists consider ffp though inr is 1.2-1.3 --> BETTER BP control # Anemia of chronic disease --> anemia panel has been reviewed --> no e/o hemolysis --> currently stable, approx 11 # Thrombocytopenia likely due to chirrhosis --> plt count 124-->141k --> have reviewed, hep C + --> will need outpatient hep C+ management --> afp ordered - results pending # Mild atrophy of the brain. 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 Subjective Allergies: Coded Allergies: PENICILLINS (Verified Allergy, Unknown, 02/10/17) Uncoded Allergies: PENICILLIN (Allergy, Unknown, 05/15/19) Subjective 08/20: requires bp control of hematoma nonsurgical care, bp mildly high in afternoon 08/22: on vanc, with picc, no events, labs noted 08/23: awake and alert, no acute events, on cipro and thiamine Objective Objective Current Medications Medications (Trade) Dose Ordered Sig/Sharla Route PRN Reason Start Time Stop Time Status Last Admin Dose Admin Amlodipine Besylate (Norvasc) 5 mg DAILY ORAL 08/22/19 09:00 09/17/19 08:59 08/23/19 08:53 Chlorhexidine Gluconate (Chastity-Hex 2%) 1 applic DAILY@1999 TOPIC 08/22/19 20:00 09/17/19 19:59 08/22/19 21:26 Ciprofloxacin (Cipro 500mg tab) 500 mg EVERY 12 HOURS ORAL 08/22/19 09:00 08/26/19 09:59 08/23/19 08:53 Hydralazine HCl (Apresoline) 50 mg EVERY 8 HOURS ORAL 08/22/19 06:00 09/16/19 21:59 08/23/19 06:08 Metoprolol Tartrate (Lopressor) 50 mg EVERY 12 HOURS ORAL 08/22/19 09:00 09/16/19 20:59 08/23/19 08:54 Morphine Sulfate (Morphine Sulfate) 2 mg Q4H PRN IVP severe pain 08/22/19 06:30 08/24/19 14:26 Nitroglycerin (Ntg) 1 patch Q24H TDERMAL 08/22/19 09:00 09/17/19 08:59 08/23/19 08:55 Pantoprazole (Protonix) 40 mg DAILY ORAL 08/22/19 09:00 09/18/19 08:59 08/23/19 08:54 Potassium Chloride (K-Dur) 40 meq DAILY ORAL 08/22/19 09:00 09/18/19 08:59 08/23/19 08:54 Sodium Hypochlorite (Dakin's Quarter Strength) 1 applic DAILY TOPIC 08/22/19 09:00 09/19/19 08:59 08/23/19 08:55 Thiamine HCl (Vitamin B1) 100 mg DAILY ORAL 08/22/19 09:00 09/19/19 08:59 08/23/19 08:54 Last 24 Hour Vital Signs Date Time Temp Pulse Resp B/P (MAP) Pulse Ox O2 Delivery O2 Flow Rate FiO2 08/23/19 08:55 136/60 08/23/19 08:54 81 136/60 08/23/19 08:53 81 136/60 08/23/19 08:00 98.1 81 16 136/60 (85) 98 08/23/19 06:08 145/83 08/23/19 04:00 98.3 70 20 130/70 (90) 95 08/23/19 00:00 98.7 77 18 142/74 (96) 96 08/22/19 21:25 77 153/94 08/22/19 21:25 153/94 08/22/19 21:00 Room Air 08/22/19 20:00 98.6 72 20 148/99 (115) 95 08/22/19 16:00 98.0 72 19 132/69 (90) 97 08/22/19 14:00 129/67 08/22/19 12:00 98.5 61 17 129/67 (87) 96 08/22/19 09:00 Room Air 08/22/19 08:34 145/74 08/22/19 08:34 72 145/74 08/22/19 08:33 72 145/74 08/22/19 08:00 98.9 72 19 145/74 (97) 99 08/22/19 05:36 165/94 08/22/19 04:00 Room Air 08/22/19 04:00 98.2 74 19 155/79 (104) 99 08/22/19 03:28 77 08/22/19 00:00 Room Air 08/22/19 00:00 98.5 68 21 132/72 (92) 99 08/22/19 00:00 80 08/21/19 22:16 146/80 08/21/19 20:18 79 154/95 08/21/19 20:00 Room Air 08/21/19 20:00 98.2 79 20 154/95 (114) 100 08/21/19 19:24 80 08/21/19 16:06 79 08/21/19 16:00 Room Air 08/21/19 16:00 98.4 74 20 146/88 (107) 98 08/21/19 13:12 149/85 08/21/19 12:00 98.6 73 20 149/85 (106) 100 08/21/19 12:00 74 08/21/19 12:00 Room Air Intake and Output 08/22/19 08/23/19 19:00 07:00 Intake Total 900 ml Output Total 600 ml Balance 900 ml -600 ml Other 900 ml Output Urine Total 600 ml # Bowel Movements 1 Labs Test 08/21/19 04:00 08/22/19 04:00 White Blood Count 6.0 K/UL (4.8-10.8) 5.2 K/UL (4.8-10.8) Red Blood Count 3.48 M/UL (4.70-6.10) 3.57 M/UL (4.70-6.10) Hemoglobin 11.5 G/DL (14.2-18.0) 11.8 G/DL (14.2-18.0) Hematocrit 33.7 % (42.0-52.0) 33.5 % (42.0-52.0) Mean Corpuscular Volume 97 FL (80-99) 94 FL (80-99) Mean Corpuscular Hemoglobin 33.2 PG (27.0-31.0) 33.2 PG (27.0-31.0) Mean Corpuscular Hemoglobin Concent 34.2 G/DL (32.0-36.0) 35.3 G/DL (32.0-36.0) Red Cell Distribution Width 11.7 % (11.6-14.8) 11.0 % (11.6-14.8) Platelet Count 162 K/UL (150-450) 161 K/UL (150-450) Mean Platelet Volume 6.2 FL (6.5-10.1) 7.3 FL (6.5-10.1) Neutrophils (%) (Auto) 40.7 % (45.0-75.0) 37.4 % (45.0-75.0) Lymphocytes (%) (Auto) 40.4 % (20.0-45.0) 43.2 % (20.0-45.0) Monocytes (%) (Auto) 11.2 % (1.0-10.0) 11.7 % (1.0-10.0) Eosinophils (%) (Auto) 5.9 % (0.0-3.0) 5.3 % (0.0-3.0) Basophils (%) (Auto) 1.8 % (0.0-2.0) 2.4 % (0.0-2.0) Sodium Level 141 MMOL/L (136-145) 141 MMOL/L (136-145) Potassium Level 3.8 MMOL/L (3.5-5.1) 3.8 MMOL/L (3.5-5.1) Chloride Level 108 MMOL/L (98-107) 107 MMOL/L (98-107) Carbon Dioxide Level 28 MMOL/L (21-32) 26 MMOL/L (21-32) Anion Gap 5 mmol/L (5-15) 8 mmol/L (5-15) Blood Urea Nitrogen 13 mg/dL (7-18) 14 mg/dL (7-18) Creatinine 1.1 MG/DL (0.55-1.30) 1.2 MG/DL (0.55-1.30) Estimat Glomerular Filtration Rate > 60 mL/min (>60) > 60 mL/min (>60) Glucose Level 122 MG/DL (74-106) 196 MG/DL (74-106) Calcium Level 8.3 MG/DL (8.5-10.1) 8.2 MG/DL (8.5-10.1) Phosphorus Level 3.4 MG/DL (2.5-4.9) Magnesium Level 1.6 MG/DL (1.8-2.4) Total Bilirubin 0.8 MG/DL (0.2-1.0) 0.8 MG/DL (0.2-1.0) Aspartate Amino Transf (AST/SGOT) 108 U/L (15-37) 112 U/L (15-37) Alanine Aminotransferase (ALT/SGPT) 54 U/L (12-78) 58 U/L (12-78) Alkaline Phosphatase 70 U/L (46-116) 72 U/L (46-116) C-Reactive Protein, Quantitative 1.0 mg/dL (0.00-0.90) Pro-B-Type Natriuretic Peptide 1610 pg/mL (0-125) Total Protein 7.4 G/DL (6.4-8.2) 7.3 G/DL (6.4-8.2) Albumin 2.0 G/DL (3.4-5.0) 2.0 G/DL (3.4-5.0) Globulin 5.4 g/dL 5.3 g/dL Albumin/Globulin Ratio 0.4 (1.0-2.7) 0.4 (1.0-2.7) Height (Feet): 6 Height (Inches): 1.00 Weight (Pounds): 217 Objective PE General: alert, mild distress, other - disheveled Neck: normal inspection Respiratory: chest non-tender, lungs clear, normal breath sounds Cardiovascular: tachycardia Gastrointestinal: normal bowel sounds, non tender, soft, non-distended, no guarding, no rebound Genitourinary: no CVA tenderness Musculoskeletal: tender - L ankle swelling Neurologic: alert, motor strength/tone normal, sensory intact, speech normal, other - moaning. agitated Skin: other - erythema/weeping skin LLE. ulceration noted, PICC WOODY++ Luis M Carlin MD Aug 23, 2019 10:42
--- NOTE | 2019-08-23 10:48 | Nephrology Progress Note ---
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 He has a new left thalamic hematoma, most likely secondary to his hypertensive vascular disease. Neuro: Plan MS susannah I HAD MD-MD CONVERSATION YESTERDAY WITH LUIS ENRIQUE. I WAS TOLD THAT THE THALAMUS HEMATOMA IS NOT A NEUROSURGICAL OPERATIVE CASE. CAUSE BY HTN AND NEED TO HAVE BP CONTROL AND OBSERVE. DR MARTÍNEZ IS ALSO AGREEABLE to med-surg adjust BP meds- tolerating PO Arrange for SNF Hold mind altering meds hydrate neuro eval note antibiotics per consultants / Neuro Nitro Head CT: 17 x 6 x 8 mm acute to subacute hematoma in the left upper thalamus/morales radiata. Little to no edema or mass effect associated with this. Mild atrophy of the brain. Nonspecific white matter hypoattenuation probably due to chronic small vessel disease. Sinusitis Subjective ROS Limited/Unobtainable: No Constitutional: Reports: malaise Objective Objective Last 24 Hour Vital Signs Date Time Temp Pulse Resp B/P (MAP) Pulse Ox O2 Delivery O2 Flow Rate FiO2 08/23/19 08:55 136/60 08/23/19 08:54 81 136/60 08/23/19 08:53 81 136/60 08/23/19 08:00 98.1 81 16 136/60 (85) 98 08/23/19 06:08 145/83 08/23/19 04:00 98.3 70 20 130/70 (90) 95 08/23/19 00:00 98.7 77 18 142/74 (96) 96 08/22/19 21:25 77 153/94 08/22/19 21:25 153/94 08/22/19 21:00 Room Air 08/22/19 20:00 98.6 72 20 148/99 (115) 95 08/22/19 16:00 98.0 72 19 132/69 (90) 97 08/22/19 14:00 129/67 08/22/19 12:00 98.5 61 17 129/67 (87) 96 Intake and Output 08/22/19 08/23/19 19:00 07:00 Intake Total 900 ml Output Total 600 ml Balance 900 ml -600 ml Other 900 ml Output Urine Total 600 ml # Bowel Movements 1 Height (Feet): 6 Height (Inches): 1.00 Weight (Pounds): 217 General Appearance: no apparent distress Objective no change Geoffrey Manzano MD Aug 23, 2019 10:48
[2019-08-23 11:47] VITALS: BP 140/77
--- NOTE | 2019-08-23 12:32 | Infectious Diseases Prog Note ---
Assessment/Plan Assessment/Plan IMPRESSION: 1. Sepsis with fever and tachycardia. 2. Bilateral leg cellulitis. 3. penicillin allergy 4. Intracranial bleeding & hematoma. 5. Liver cirrhosis. 6. Diabetes mellitus with peripheral neuropathy. 7. Hypertension. 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 leg MRI: negative for osteomyelitis Subjective ROS Limited/Unobtainable: No Constitutional: Denies: fever Respiratory: Reports: no symptoms Cardiovascular: Reports: no symptoms Gastrointestinal/Abdominal: Reports: no symptoms Genitourinary: Reports: no symptoms Allergies: Coded Allergies: PENICILLINS (Verified Allergy, Unknown, 02/10/17) Uncoded Allergies: PENICILLIN (Allergy, Unknown, 05/15/19) Objective Vital Signs Last 24 Hour Vital Signs Date Time Temp Pulse Resp B/P (MAP) Pulse Ox O2 Delivery O2 Flow Rate FiO2 08/23/19 11:51 21 08/23/19 11:47 98.1 70 26 140/77 (98) 98 08/23/19 08:55 136/60 08/23/19 08:54 81 136/60 08/23/19 08:53 81 136/60 08/23/19 08:00 98.1 81 16 136/60 (85) 98 08/23/19 06:08 145/83 08/23/19 04:00 98.3 70 20 130/70 (90) 95 08/23/19 00:00 98.7 77 18 142/74 (96) 96 08/22/19 21:25 77 153/94 08/22/19 21:25 153/94 08/22/19 21:00 Room Air 08/22/19 20:00 98.6 72 20 148/99 (115) 95 08/22/19 16:00 98.0 72 19 132/69 (90) 97 08/22/19 14:00 129/67 Height (Feet): 6 Height (Inches): 1.00 Weight (Pounds): 217 General Appearance: no acute distress HEENT: mucous membranes moist Respiratory/Chest: lungs clear Cardiovascular: normal rate Abdomen: soft, non tender Extremities: other - legs edema Skin: ulcers, other - legs Neurologic/Psychiatric: alert, oriented x 3, responsive Current Medications Medications (Trade) Dose Ordered Sig/Sharla Route PRN Reason Start Time Stop Time Status Last Admin Dose Admin Amlodipine Besylate (Norvasc) 5 mg DAILY ORAL 08/22/19 09:00 09/17/19 08:59 08/23/19 08:53 Chlorhexidine Gluconate (Chastity-Hex 2%) 1 applic DAILY@1999 TOPIC 08/22/19 20:00 09/17/19 19:59 08/22/19 21:26 Ciprofloxacin (Cipro 500mg tab) 500 mg EVERY 12 HOURS ORAL 08/22/19 09:00 08/26/19 09:59 08/23/19 08:53 Hydralazine HCl (Apresoline) 50 mg EVERY 8 HOURS ORAL 08/22/19 06:00 09/16/19 21:59 08/23/19 06:08 Metoprolol Tartrate (Lopressor) 50 mg EVERY 12 HOURS ORAL 08/22/19 09:00 09/16/19 20:59 08/23/19 08:54 Morphine Sulfate (Morphine Sulfate) 2 mg Q4H PRN IVP severe pain 08/22/19 06:30 08/24/19 14:26 Nitroglycerin (Ntg) 1 patch Q24H TDERMAL 08/22/19 09:00 09/17/19 08:59 08/23/19 08:55 Pantoprazole (Protonix) 40 mg DAILY ORAL 08/22/19 09:00 09/18/19 08:59 08/23/19 08:54 Potassium Chloride (K-Dur) 40 meq DAILY ORAL 08/22/19 09:00 09/18/19 08:59 08/23/19 08:54 Sodium Hypochlorite (Dakin's Quarter Strength) 1 applic DAILY TOPIC 08/22/19 09:00 09/19/19 08:59 08/23/19 08:55 Thiamine HCl (Vitamin B1) 100 mg DAILY ORAL 08/22/19 09:00 09/19/19 08:59 08/23/19 08:54 Edis Irving MD Aug 23, 2019 12:32
[2019-08-23 16:02] VITALS: BP 135/70
--- NOTE | 2019-08-23 19:37 | General Progress Note ---
Assessment/Plan Problem List: (1) Anemia ICD Codes: D64.9 - Anemia, unspecified SNOMED: 916486152 (2) Cellulitis ICD Codes: L03.90 - Cellulitis, unspecified SNOMED: 327291502 (3) Liver cirrhosis ICD Codes: K74.60 - Unspecified cirrhosis of liver SNOMED: 82399611 Qualifiers: Qualified Codes: K74.60 - Unspecified cirrhosis of liver (4) Drug abuse ICD Codes: F19.10 - Other psychoactive substance abuse, uncomplicated SNOMED: 02059876 (5) Peripheral neuropathy ICD Codes: G62.9 - Polyneuropathy, unspecified SNOMED: 289936286 Qualifiers: Qualified Codes: G62.9 - Polyneuropathy, unspecified (6) Fracture of distal end of left tibia ICD Codes: S82.302A - Unspecified fracture of lower end of left tibia, initial encounter for closed fracture SNOMED: 409299797 Qualifiers: Qualified Codes: S82.302A - Unspecified fracture of lower end of left tibia , initial encounter for closed fracture (7) Hepatitis C ICD Codes: B19.20 - Unspecified viral hepatitis C without hepatic coma SNOMED: 78273814 (8) Hepatic encephalopathy ICD Codes: K72.90 - Hepatic failure, unspecified without coma SNOMED: 22285036 (9) Coagulopathy ICD Codes: D68.9 - Coagulation defect, unspecified SNOMED: 62948341 (10) Sepsis ICD Codes: A41.9 - Sepsis, unspecified organism SNOMED: 49152598 (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 (12) Abnormal LFTs ICD Codes: R94.5 - Abnormal results of liver function studies SNOMED: 785600235 Status: progressing Assessment/Plan: needs placement etoh cirhosis hepatic encephalpathy sepsis vitals stable intracranial hemorrhge Subjective ROS Limited/Unobtainable: Yes Allergies: Coded Allergies: PENICILLINS (Verified Allergy, Unknown, 02/10/17) Uncoded Allergies: PENICILLIN (Allergy, Unknown, 05/15/19) Objective Last 24 Hour Vital Signs Date Time Temp Pulse Resp B/P (MAP) Pulse Ox O2 Delivery O2 Flow Rate FiO2 08/23/19 16:02 98.5 74 22 135/70 (91) 99 08/23/19 13:56 145/75 08/23/19 11:51 21 08/23/19 11:47 98.1 70 26 140/77 (98) 98 08/23/19 08:55 136/60 08/23/19 08:54 81 136/60 08/23/19 08:53 81 136/60 08/23/19 08:00 98.1 81 16 136/60 (85) 98 08/23/19 06:08 145/83 08/23/19 04:00 98.3 70 20 130/70 (90) 95 08/23/19 00:00 98.7 77 18 142/74 (96) 96 08/22/19 21:25 77 153/94 08/22/19 21:25 153/94 08/22/19 21:00 Room Air 08/22/19 20:00 98.6 72 20 148/99 (115) 95 Intake and Output 08/22/19 08/23/19 18:59 06:59 Intake Total 900 ml Output Total 600 ml Balance 900 ml -600 ml Other 900 ml Output Urine Total 600 ml # Bowel Movements 1 Height (Feet): 6 Height (Inches): 1.00 Weight (Pounds): 217 Cardiovascular: normal rate Respiratory/Chest: lungs clear Abdomen: soft Esthela Arauz MD Aug 23, 2019 19:36
[2019-08-23 20:00] VITALS: BP 124/68
[2019-08-23] MEDS: Dyna-Hex 2% Top Sol 2oz TOPIC SCH (20:00)
--- NOTE | 2019-08-23 23:39 | General Progress Note ---
Assessment/Plan Status: progressing Assessment/Plan: Assessment - intracrainial bleed - cirrhosis per imaging - Hepatitis C - Hiatal hernia - LE edema - Anemia - minimally elevated NH3 - suspect incidental Recommendations - po as tolerated - neuro exams - outpatient HCV eradication Subjective Allergies: Coded Allergies: PENICILLINS (Verified Allergy, Unknown, 02/10/17) Uncoded Allergies: PENICILLIN (Allergy, Unknown, 05/15/19) Subjective Seen this am eating OK no abd complaints Objective Last 24 Hour Vital Signs Date Time Temp Pulse Resp B/P (MAP) Pulse Ox O2 Delivery O2 Flow Rate FiO2 08/23/19 22:00 124/68 08/23/19 21:00 Room Air 08/23/19 20:13 82 124/68 08/23/19 20:00 98.3 82 18 124/68 (86) 97 08/23/19 16:02 98.5 74 22 135/70 (91) 99 08/23/19 13:56 145/75 08/23/19 11:51 21 08/23/19 11:47 98.1 70 26 140/77 (98) 98 08/23/19 08:55 136/60 08/23/19 08:54 81 136/60 08/23/19 08:53 81 136/60 08/23/19 08:00 98.1 81 16 136/60 (85) 98 08/23/19 06:08 145/83 08/23/19 04:00 98.3 70 20 130/70 (90) 95 08/23/19 00:00 98.7 77 18 142/74 (96) 96 Intake and Output 08/22/19 08/23/19 19:00 07:00 Intake Total 900 ml Output Total 600 ml Balance 900 ml -600 ml Other 900 ml Output Urine Total 600 ml # Bowel Movements 1 Height (Feet): 6 Height (Inches): 1.00 Weight (Pounds): 217 Objective WDWN NCAT supple CTA RRR abd soft ND NT no edema Viktoria Chatterjee MD Aug 23, 2019 23:39
[2019-08-24] VITALS: BP 127/62
[2019-08-24] MEDS: Morphine Sulfate 2mg/ml Inj(IV/IM USE ONLY) IVP PRN ×2 (01:44→05:49)
[2019-08-24 04:00] VITALS: BP 125/66
[2019-08-24] MEDS: HydrALAZINE 50mg tab ORAL SCH ×3 (05:27→22:16)
[2019-08-24 05:52] LABS: ALANINE AMINOTRANSFERASE 73 U/L (12-78); ALBUMIN 2.2 G/DL (3.4-5.0); ALBUMIN/GLOBULIN RATIO 0.4 (1.0-2.7); ALKALINE PHOSPHATASE 85 U/L (46-116); ANION GAP 7 mmol/L (5-15); ASPARTATE AMINO TRANSFERASE 144 U/L (15-37); BILIRUBIN,TOTAL 0.7 MG/DL (0.2-1.0); BLOOD UREA NITROGEN 21 mg/dL (7-18); CALCIUM 8.1 MG/DL (8.5-10.1); CARBON DIOXIDE 26 MMOL/L (21-32); CHLORIDE 109 MMOL/L (98-107); CREATININE 1.2 MG/DL (0.55-1.30); PHOSPHORUS 3.8 MG/DL (2.5-4.9); POTASSIUM 4.1 MMOL/L (3.5-5.1); SODIUM 142 MMOL/L (136-145)
[2019-08-24 05:55] LABS: BASOPHILS % (AUTO) 2.5 % (0.0-2.0); HEMATOCRIT 34.3 % (42.0-52.0); HEMOGLOBIN 11.6 G/DL (14.2-18.0); LYMPHOCYTES % (AUTO) 42.1 % (20.0-45.0); MEAN CORPUSCULAR VOLUME 97 FL (80-99); MONOCYTES % (AUTO) 11.2 % (1.0-10.0); NEUTROPHILS % (AUTO) 41.3 % (45.0-75.0); PLATELET COUNT 173 K/UL (150-450); RED BLOOD COUNT 3.53 M/UL (4.70-6.10); RED CELL DISTRIBUTION WIDTH 11.8 % (11.6-14.8); WHITE BLOOD COUNT 6.3 K/UL (4.8-10.8)
--- NOTE | 2019-08-24 06:05 | Hematology/Onc Progress Note ---
Assessment/Plan Assessment/Plan Assessment and Recs: # Intracranial bleed - 17 x 6 x 8 mm acute to subacute hematoma in the left upper thalamus/morales radiata. Little to no edema or mass effect associated with this. --> has been seen by neuro, requires better bp care --> correct plt, hgb as well as inr as needed --> has been given vit K 10mg iv or sq is okay --> monitor for bleed, if persists consider ffp though inr is 1.2-1.3 --> BETTER BP control # Anemia of chronic disease --> anemia panel has been reviewed --> no e/o hemolysis --> currently stable, approx 11 # Thrombocytopenia likely due to chirrhosis --> plt count 124-->141k --> have reviewed, hep C + --> will need outpatient hep C+ management --> afp ordered - results pending --> cea is 5.1 # Mild atrophy of the brain. 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 Subjective Constitutional: Denies: no symptoms, chills, fever, malaise, weakness, other HEENT: Denies: no symptoms, eye pain, blurred vision, tearing, double vision, ear pain, ear discharge, nose pain, nose congestion, throat pain, throat swelling, mouth pain, mouth swelling, other Cardiovascular: Denies: no symptoms, chest pain, edema, irregular heart rate, lightheadedness, palpitations, syncope, other Respiratory: Denies: no symptoms, cough, shortness of breath, SOB with excertion, SOB at rest, sputum, wheezing, other Gastrointestinal/Abdominal: Denies: no symptoms, abdomen distended, abdominal pain, black stools, tarry stools, blood in stool, constipated, diarrhea, difficulty swallowing, nausea, poor appetite, poor fluid intake, rectal bleeding , vomiting, other Endocrine: Denies: no symptoms, excessive sweating, flushing, intolerance to cold, intolerance to heat, increased hunger, increased thirst, increased urine, unexplained weight gain, unexplained weight loss, other Hematologic/Lymphatic: Denies: no symptoms, anemia, easy bleeding, easy bruising, adenopathy, other Allergies: Coded Allergies: PENICILLINS (Verified Allergy, Unknown, 02/10/17) Uncoded Allergies: PENICILLIN (Allergy, Unknown, 05/15/19) Subjective 08/20: requires bp control of hematoma nonsurgical care, bp mildly high in afternoon 08/22: on vanc, with picc, no events, labs noted 08/23: awake and alert, no acute events, on cipro and thiamine 08/24: no bleeding, no chills, no major changes, no events Objective Objective Current Medications Medications (Trade) Dose Ordered Sig/Sharla Route PRN Reason Start Time Stop Time Status Last Admin Dose Admin Amlodipine Besylate (Norvasc) 5 mg DAILY ORAL 08/22/19 09:00 09/17/19 08:59 08/23/19 08:53 Chlorhexidine Gluconate (Chastity-Hex 2%) 1 applic DAILY@1999 TOPIC 08/22/19 20:00 09/17/19 19:59 08/22/19 21:26 Ciprofloxacin (Cipro 500mg tab) 500 mg EVERY 12 HOURS ORAL 08/22/19 09:00 08/26/19 09:59 08/23/19 20:13 Hydralazine HCl (Apresoline) 50 mg EVERY 8 HOURS ORAL 08/22/19 06:00 09/16/19 21:59 08/23/19 13:56 Metoprolol Tartrate (Lopressor) 50 mg EVERY 12 HOURS ORAL 08/22/19 09:00 09/16/19 20:59 08/23/19 20:13 Morphine Sulfate (Morphine Sulfate) 2 mg Q4H PRN IVP severe pain 08/22/19 06:30 08/24/19 14:26 08/24/19 05:49 Nitroglycerin (Ntg) 1 patch Q24H TDERMAL 08/22/19 09:00 09/17/19 08:59 08/23/19 08:55 Pantoprazole (Protonix) 40 mg DAILY ORAL 08/22/19 09:00 09/18/19 08:59 08/23/19 08:54 Potassium Chloride (K-Dur) 40 meq DAILY ORAL 08/22/19 09:00 09/18/19 08:59 08/23/19 08:54 Sodium Hypochlorite (Dakin's Quarter Strength) 1 applic DAILY TOPIC 08/22/19 09:00 09/19/19 08:59 08/23/19 08:55 Thiamine HCl (Vitamin B1) 100 mg DAILY ORAL 08/22/19 09:00 09/19/19 08:59 08/23/19 08:54 Last 24 Hour Vital Signs Date Time Temp Pulse Resp B/P (MAP) Pulse Ox O2 Delivery O2 Flow Rate FiO2 08/24/19 05:27 125/66 08/24/19 04:00 98.2 9 19 125/66 (85) 97 08/24/19 00:00 98.1 75 18 127/62 (83) 98 08/23/19 22:00 124/68 08/23/19 21:00 Room Air 08/23/19 20:13 82 124/68 08/23/19 20:00 98.3 82 18 124/68 (86) 97 08/23/19 16:02 98.5 74 22 135/70 (91) 99 08/23/19 13:56 145/75 08/23/19 11:51 21 08/23/19 11:47 98.1 70 26 140/77 (98) 98 08/23/19 08:55 136/60 08/23/19 08:54 81 136/60 08/23/19 08:53 81 136/60 08/23/19 08:00 98.1 81 16 136/60 (85) 98 08/23/19 06:08 145/83 08/23/19 04:00 98.3 70 20 130/70 (90) 95 08/23/19 00:00 98.7 77 18 142/74 (96) 96 08/22/19 21:25 77 153/94 08/22/19 21:25 153/94 08/22/19 21:00 Room Air 08/22/19 20:00 98.6 72 20 148/99 (115) 95 08/22/19 16:00 98.0 72 19 132/69 (90) 97 08/22/19 14:00 129/67 08/22/19 12:00 98.5 61 17 129/67 (87) 96 08/22/19 09:00 Room Air 08/22/19 08:34 145/74 08/22/19 08:34 72 145/74 08/22/19 08:33 72 145/74 08/22/19 08:00 98.9 72 19 145/74 (97) 99 Intake and Output 08/23/19 08/24/19 19:00 07:00 Intake Total 1240 ml 480 ml Output Total 1600 ml 1900 ml Balance -360 ml -1420 ml Intake Oral 1240 ml 480 ml Output Urine Total 1600 ml 1900 ml # Voids 4 # Bowel Movements 1 Labs Test 08/22/19 04:00 08/24/19 05:15 White Blood Count 5.2 K/UL (4.8-10.8) 6.3 K/UL (4.8-10.8) Red Blood Count 3.57 M/UL (4.70-6.10) 3.53 M/UL (4.70-6.10) Hemoglobin 11.8 G/DL (14.2-18.0) 11.6 G/DL (14.2-18.0) Hematocrit 33.5 % (42.0-52.0) 34.3 % (42.0-52.0) Mean Corpuscular Volume 94 FL (80-99) 97 FL (80-99) Mean Corpuscular Hemoglobin 33.2 PG (27.0-31.0) 32.8 PG (27.0-31.0) Mean Corpuscular Hemoglobin Concent 35.3 G/DL (32.0-36.0) 33.8 G/DL (32.0-36.0) Red Cell Distribution Width 11.0 % (11.6-14.8) 11.8 % (11.6-14.8) Platelet Count 161 K/UL (150-450) 173 K/UL (150-450) Mean Platelet Volume 7.3 FL (6.5-10.1) 7.0 FL (6.5-10.1) Neutrophils (%) (Auto) 37.4 % (45.0-75.0) 41.3 % (45.0-75.0) Lymphocytes (%) (Auto) 43.2 % (20.0-45.0) 42.1 % (20.0-45.0) Monocytes (%) (Auto) 11.7 % (1.0-10.0) 11.2 % (1.0-10.0) Eosinophils (%) (Auto) 5.3 % (0.0-3.0) 3.0 % (0.0-3.0) Basophils (%) (Auto) 2.4 % (0.0-2.0) 2.5 % (0.0-2.0) Sodium Level 141 MMOL/L (136-145) Potassium Level 3.8 MMOL/L (3.5-5.1) Chloride Level 107 MMOL/L (98-107) Carbon Dioxide Level 26 MMOL/L (21-32) Anion Gap 8 mmol/L (5-15) Blood Urea Nitrogen 14 mg/dL (7-18) Creatinine 1.2 MG/DL (0.55-1.30) Estimat Glomerular Filtration Rate > 60 mL/min (>60) Glucose Level 196 MG/DL (74-106) Calcium Level 8.2 MG/DL (8.5-10.1) Total Bilirubin 0.8 MG/DL (0.2-1.0) Aspartate Amino Transf (AST/SGOT) 112 U/L (15-37) Alanine Aminotransferase (ALT/SGPT) 58 U/L (12-78) Alkaline Phosphatase 72 U/L (46-116) Total Protein 7.3 G/DL (6.4-8.2) Albumin 2.0 G/DL (3.4-5.0) Globulin 5.3 g/dL Albumin/Globulin Ratio 0.4 (1.0-2.7) Height (Feet): 6 Height (Inches): 1.00 Weight (Pounds): 217 Objective PE General: alert, mild distress, other - disheveled Neck: normal inspection Respiratory: chest non-tender, lungs clear, normal breath sounds Cardiovascular: tachycardia Gastrointestinal: normal bowel sounds, non tender, soft, non-distended, no guarding, no rebound Genitourinary: no CVA tenderness Musculoskeletal: tender - L ankle swelling Neurologic: alert, motor strength/tone normal, sensory intact, speech normal, other - moaning. agitated Skin: other - erythema/weeping skin LLE. ulceration noted, PICC WOODY++ Luis M Carlin MD Aug 24, 2019 06:05
[2019-08-24 08:00] VITALS: BP 156/86
--- NOTE | 2019-08-24 08:48 | General Progress Note ---
Assessment/Plan Assessment/Plan: (1) B/L LE pain (2) Left tibia fracture (3) Right non healing ulcer (4) Peripheral Neuropathy (5) Cocaine abuse Patient will be continued on Morphine. D/w Dr. Romano and he concurred. Subjective Date patient seen: Aug 24, 2019 Time patient seen: 08:15 - am Allergies: Coded Allergies: PENICILLINS (Verified Allergy, Unknown, 02/10/17) Uncoded Allergies: PENICILLIN (Allergy, Unknown, 05/15/19) Subjective Constitutional: Reports: weakness HEENT: Reports: no symptoms Cardiovascular: Reports: no symptoms Respiratory: Reports: no symptoms Gastrointestinal/Abdominal: Reports: no symptoms Genitourinary: Reports: no symptoms Neurologic/Psychiatric: Reports: weakness Endocrine: Reports: no symptoms Hematologic/Lymphatic: Reports: no symptoms Subjective Patient reports mild pain at this time using the Morphine as needed. No new complaints at this time. Objective Last 24 Hour Vital Signs Date Time Temp Pulse Resp B/P (MAP) Pulse Ox O2 Delivery O2 Flow Rate FiO2 08/24/19 05:27 125/66 08/24/19 04:00 98.2 9 19 125/66 (85) 97 08/24/19 00:00 98.1 75 18 127/62 (83) 98 08/23/19 22:00 124/68 08/23/19 21:00 Room Air 08/23/19 20:13 82 124/68 08/23/19 20:00 98.3 82 18 124/68 (86) 97 08/23/19 16:02 98.5 74 22 135/70 (91) 99 08/23/19 13:56 145/75 08/23/19 11:51 21 08/23/19 11:47 98.1 70 26 140/77 (98) 98 08/23/19 08:55 136/60 08/23/19 08:54 81 136/60 08/23/19 08:53 81 136/60 Intake and Output 08/23/19 08/24/19 19:00 07:00 Intake Total 1240 ml 480 ml Output Total 1600 ml 1900 ml Balance -360 ml -1420 ml Intake Oral 1240 ml 480 ml Output Urine Total 1600 ml 1900 ml # Voids 4 # Bowel Movements 1 Laboratory Tests 08/24/19 05:15: White Blood Count 6.3, Red Blood Count 3.53L, Hemoglobin 11.6L, Hematocrit 34.3L , Mean Corpuscular Volume 97, Mean Corpuscular Hemoglobin 32.8H, Mean Corpuscular Hemoglobin Concent 33.8, Red Cell Distribution Width 11.8, Platelet Count 173, Mean Platelet Volume 7.0, Neutrophils (%) (Auto) 41.3L, Lymphocytes ( %) (Auto) 42.1, Monocytes (%) (Auto) 11.2H, Eosinophils (%) (Auto) 3.0, Basophils (%) (Auto) 2.5H, Sodium Level 142, Potassium Level 4.1, Chloride Level 109H, Carbon Dioxide Level 26, Anion Gap 7, Blood Urea Nitrogen 21H, Creatinine 1.2, Estimat Glomerular Filtration Rate > 60, Glucose Level 88, Uric Acid 3.5, Calcium Level 8.1L, Phosphorus Level 3.8, Magnesium Level 1.5L, Total Bilirubin 0.7, Aspartate Amino Transf (AST/SGOT) 144H, Alanine Aminotransferase (ALT/SGPT) 73, Alkaline Phosphatase 85, Total Protein 7.6, Albumin 2.2L, Globulin 5.4, Albumin/Globulin Ratio 0.4L Height (Feet): 6 Height (Inches): 1.00 Weight (Pounds): 219 Objective General Appearance: no apparent distress, confused HEENT: normocephalic Neck: non-tender, supple Respiratory/Chest: decreased breath sounds Abdomen: non tender, soft Extremities: other - left LE in cast, right LE bandages applied Neurologic: alert, responsive Giuliano Liu Aug 24, 2019 08:48
[2019-08-24] MEDS: Dakin's 0.125% Soln (Quarter Strength) 16oz TOPIC SCH (09:09)
[2019-08-24] MEDS: Magnesium Oxide 400mg tab ORAL SCH ×3 (09:10→17:38)
[2019-08-24] MEDS: Ciprofloxacin 500mg tab ORAL SCH ×2 (09:10→20:38)
[2019-08-24] MEDS: Metoprolol Tartrate 50mg tab ORAL SCH ×2 (09:10→20:38)
[2019-08-24] MEDS: Nitroglycerin Patch 0.4mg TDERMAL SCH (09:11)
[2019-08-24] MEDS: Thiamine 100mg tab ORAL SCH (09:12)
--- NOTE | 2019-08-24 11:14 | Nephrology Progress Note ---
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 He has a new left thalamic hematoma, most likely secondary to his hypertensive vascular disease. Neuro: Plan [facility] susannah I HAD MD-MD CONVERSATION YESTERDAY WITH LUIS ENRIQUE. I WAS TOLD THAT THE THALAMUS HEMATOMA IS NOT A NEUROSURGICAL OPERATIVE CASE. CAUSE BY HTN AND NEED TO HAVE BP CONTROL AND OBSERVE. DR MARTÍNEZ IS ALSO AGREEABLE to med-surg adjust BP meds- tolerating PO Arrange for SNF Hold mind altering meds hydrate neuro eval note antibiotics per consultants / Neuro Nitro Head CT: 17 x 6 x 8 mm acute to subacute hematoma in the left upper thalamus/morales radiata. Little to no edema or mass effect associated with this. Mild atrophy of the brain. Nonspecific white matter hypoattenuation probably due to chronic small vessel disease. Sinusitis Subjective ROS Limited/Unobtainable: No Objective Objective Last 24 Hour Vital Signs Date Time Temp Pulse Resp B/P (MAP) Pulse Ox O2 Delivery O2 Flow Rate FiO2 08/24/19 09:11 156/86 08/24/19 09:10 62 156/86 08/24/19 09:10 62 156/86 08/24/19 09:00 Room Air 08/24/19 08:00 97.7 62 20 156/86 (109) 100 08/24/19 05:27 125/66 08/24/19 04:00 98.2 9 19 125/66 (85) 97 08/24/19 00:00 98.1 75 18 127/62 (83) 98 08/23/19 22:00 124/68 08/23/19 21:00 Room Air 08/23/19 20:13 82 124/68 08/23/19 20:00 98.3 82 18 124/68 (86) 97 08/23/19 16:02 98.5 74 22 135/70 (91) 99 08/23/19 13:56 145/75 08/23/19 11:51 21 08/23/19 11:47 98.1 70 26 140/77 (98) 98 Intake and Output 08/23/19 08/24/19 19:00 07:00 Intake Total 1240 ml 480 ml Output Total 1600 ml 1900 ml Balance -360 ml -1420 ml Intake Oral 1240 ml 480 ml Output Urine Total 1600 ml 1900 ml # Voids 4 # Bowel Movements 1 Laboratory Tests 08/24/19 05:15: White Blood Count 6.3, Red Blood Count 3.53L, Hemoglobin 11.6L, Hematocrit 34.3L , Mean Corpuscular Volume 97, Mean Corpuscular Hemoglobin 32.8H, Mean Corpuscular Hemoglobin Concent 33.8, Red Cell Distribution Width 11.8, Platelet Count 173, Mean Platelet Volume 7.0, Neutrophils (%) (Auto) 41.3L, Lymphocytes ( %) (Auto) 42.1, Monocytes (%) (Auto) 11.2H, Eosinophils (%) (Auto) 3.0, Basophils (%) (Auto) 2.5H, Sodium Level 142, Potassium Level 4.1, Chloride Level 109H, Carbon Dioxide Level 26, Anion Gap 7, Blood Urea Nitrogen 21H, Creatinine 1.2, Estimat Glomerular Filtration Rate > 60, Glucose Level 88, Uric Acid 3.5, Calcium Level 8.1L, Phosphorus Level 3.8, Magnesium Level 1.5L, Total Bilirubin 0.7, Aspartate Amino Transf (AST/SGOT) 144H, Alanine Aminotransferase (ALT/SGPT) 73, Alkaline Phosphatase 85, Total Protein 7.6, Albumin 2.2L, Globulin 5.4, Albumin/Globulin Ratio 0.4L Height (Feet): 6 Height (Inches): 1.00 Weight (Pounds): 219 General Appearance: no apparent distress Objective no change Geoffrey Manzano MD Aug 24, 2019 11:14
[2019-08-24 12:00] VITALS: BP 132/72
--- NOTE | 2019-08-24 13:12 | Infectious Diseases Prog Note ---
Assessment/Plan Assessment/Plan IMPRESSION: 1. Sepsis with fever and tachycardia. 2. Bilateral leg cellulitis. 3. penicillin allergy 4. Intracranial bleeding & hematoma. 5. Liver cirrhosis. 6. Diabetes mellitus with peripheral neuropathy. 7. Hypertension. 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 RECOMMENDATION: Continue PO Ciprofloxacin X 4 days leg MRI: negative for osteomyelitis Subjective ROS Limited/Unobtainable: Yes Respiratory: Reports: no symptoms Cardiovascular: Reports: no symptoms Gastrointestinal/Abdominal: Reports: no symptoms Musculoskeletal: Reports: no symptoms Allergies: Coded Allergies: PENICILLINS (Verified Allergy, Unknown, 02/10/17) Uncoded Allergies: PENICILLIN (Allergy, Unknown, 05/15/19) Objective Vital Signs Last 24 Hour Vital Signs Date Time Temp Pulse Resp B/P (MAP) Pulse Ox O2 Delivery O2 Flow Rate FiO2 08/24/19 09:11 156/86 08/24/19 09:10 62 156/86 08/24/19 09:10 62 156/86 08/24/19 09:00 Room Air 08/24/19 08:00 97.7 62 20 156/86 (109) 100 08/24/19 05:27 125/66 08/24/19 04:00 98.2 9 19 125/66 (85) 97 08/24/19 00:00 98.1 75 18 127/62 (83) 98 08/23/19 22:00 124/68 08/23/19 21:00 Room Air 08/23/19 20:13 82 124/68 08/23/19 20:00 98.3 82 18 124/68 (86) 97 08/23/19 16:02 98.5 74 22 135/70 (91) 99 08/23/19 13:56 145/75 Height (Feet): 6 Height (Inches): 1.00 Weight (Pounds): 219 General Appearance: no acute distress HEENT: mucous membranes moist Respiratory/Chest: lungs clear Cardiovascular: normal rate Abdomen: soft, non tender Extremities: other - edema of legs Skin: ulcers, other - legs Neurologic/Psychiatric: alert, responsive Laboratory Tests Test 08/24/19 05:15 White Blood Count 6.3 K/UL (4.8-10.8) Red Blood Count 3.53 M/UL (4.70-6.10) L Hemoglobin 11.6 G/DL (14.2-18.0) L Hematocrit 34.3 % (42.0-52.0) L Mean Corpuscular Volume 97 FL (80-99) Mean Corpuscular Hemoglobin 32.8 PG (27.0-31.0) H Mean Corpuscular Hemoglobin Concent 33.8 G/DL (32.0-36.0) Red Cell Distribution Width 11.8 % (11.6-14.8) Platelet Count 173 K/UL (150-450) Mean Platelet Volume 7.0 FL (6.5-10.1) Neutrophils (%) (Auto) 41.3 % (45.0-75.0) L Lymphocytes (%) (Auto) 42.1 % (20.0-45.0) Monocytes (%) (Auto) 11.2 % (1.0-10.0) H Eosinophils (%) (Auto) 3.0 % (0.0-3.0) Basophils (%) (Auto) 2.5 % (0.0-2.0) H Sodium Level 142 MMOL/L (136-145) Potassium Level 4.1 MMOL/L (3.5-5.1) Chloride Level 109 MMOL/L (98-107) H Carbon Dioxide Level 26 MMOL/L (21-32) Anion Gap 7 mmol/L (5-15) Blood Urea Nitrogen 21 mg/dL (7-18) H Creatinine 1.2 MG/DL (0.55-1.30) Estimat Glomerular Filtration Rate > 60 mL/min (>60) Glucose Level 88 MG/DL (74-106) Uric Acid 3.5 MG/DL (2.6-7.2) Calcium Level 8.1 MG/DL (8.5-10.1) L Phosphorus Level 3.8 MG/DL (2.5-4.9) Magnesium Level 1.5 MG/DL (1.8-2.4) L Total Bilirubin 0.7 MG/DL (0.2-1.0) Aspartate Amino Transf (AST/SGOT) 144 U/L (15-37) H Alanine Aminotransferase (ALT/SGPT) 73 U/L (12-78) Alkaline Phosphatase 85 U/L (46-116) Total Protein 7.6 G/DL (6.4-8.2) Albumin 2.2 G/DL (3.4-5.0) L Globulin 5.4 g/dL Albumin/Globulin Ratio 0.4 (1.0-2.7) L Current Medications Medications (Trade) Dose Ordered Sig/Sharla Route PRN Reason Start Time Stop Time Status Last Admin Dose Admin Amlodipine Besylate (Norvasc) 5 mg DAILY ORAL 08/22/19 09:00 09/17/19 08:59 08/24/19 09:10 Chlorhexidine Gluconate (Chastity-Hex 2%) 1 applic DAILY@2000 TOPIC 08/22/19 20:00 09/17/19 19:59 08/22/19 21:26 Ciprofloxacin (Cipro 500mg tab) 500 mg EVERY 12 HOURS ORAL 08/22/19 09:00 08/26/19 09:59 08/24/19 09:10 Hydralazine HCl (Apresoline) 50 mg EVERY 8 HOURS ORAL 08/22/19 06:00 09/16/19 21:59 08/23/19 13:56 Magnesium Oxide (Mag-Ox 400mg) 400 mg THREE TIMES A DAY ORAL 08/24/19 09:00 09/23/19 08:59 08/24/19 09:10 Metoprolol Tartrate (Lopressor) 50 mg EVERY 12 HOURS ORAL 08/22/19 09:00 09/16/19 20:59 08/24/19 09:10 Nitroglycerin (Ntg) 1 patch Q24H TDERMAL 08/22/19 09:00 09/17/19 08:59 08/24/19 09:11 Pantoprazole (Protonix) 40 mg DAILY ORAL 08/22/19 09:00 09/18/19 08:59 08/24/19 09:10 Potassium Chloride (K-Dur) 40 meq DAILY ORAL 08/22/19 09:00 09/18/19 08:59 08/24/19 09:10 Sodium Hypochlorite (Dakin's Quarter Strength) 1 applic DAILY TOPIC 08/22/19 09:00 09/19/19 08:59 08/24/19 09:09 Thiamine HCl (Vitamin B1) 100 mg DAILY ORAL 08/22/19 09:00 09/19/19 08:59 08/24/19 09:12 Edis Irving MD Aug 24, 2019 13:12
[2019-08-24 16:00] VITALS: BP 129/69
--- NOTE | 2019-08-24 17:16 | Surgery Progress Note ---
Surgery Progress Note Subjective Additional Comments no acute events comfortable no complaints no n/v/f/c dressings changted Objective Last 24 Hour Vital Signs Date Time Temp Pulse Resp B/P (MAP) Pulse Ox O2 Delivery O2 Flow Rate FiO2 08/24/19 16:00 98.7 66 19 129/69 (89) 98 08/24/19 13:26 120/60 08/24/19 12:00 97.3 62 20 132/72 (92) 100 08/24/19 09:11 156/86 08/24/19 09:10 62 156/86 08/24/19 09:10 62 156/86 08/24/19 09:00 Room Air 08/24/19 08:00 97.7 62 20 156/86 (109) 100 08/24/19 05:27 125/66 08/24/19 04:00 98.2 9 19 125/66 (85) 97 08/24/19 00:00 98.1 75 18 127/62 (83) 98 08/23/19 22:00 124/68 08/23/19 21:00 Room Air 08/23/19 20:13 82 124/68 08/23/19 20:00 98.3 82 18 124/68 (86) 97 I&O Intake and Output 08/23/19 08/24/19 19:00 07:00 Intake Total 1240 ml 480 ml Output Total 1600 ml 1900 ml Balance -360 ml -1420 ml Intake Oral 1240 ml 480 ml Output Urine Total 1600 ml 1900 ml # Voids 4 # Bowel Movements 1 Dressing: dry Wound: clean Cardiovascular: RSR Respiratory: clear Abdomen: soft, non-tender, present bowel sounds Extremities: other Laboratory Tests Test 08/24/19 05:15 White Blood Count 6.3 K/UL (4.8-10.8) Red Blood Count 3.53 M/UL (4.70-6.10) L Hemoglobin 11.6 G/DL (14.2-18.0) L Hematocrit 34.3 % (42.0-52.0) L Mean Corpuscular Volume 97 FL (80-99) Mean Corpuscular Hemoglobin 32.8 PG (27.0-31.0) H Mean Corpuscular Hemoglobin Concent 33.8 G/DL (32.0-36.0) Red Cell Distribution Width 11.8 % (11.6-14.8) Platelet Count 173 K/UL (150-450) Mean Platelet Volume 7.0 FL (6.5-10.1) Neutrophils (%) (Auto) 41.3 % (45.0-75.0) L Lymphocytes (%) (Auto) 42.1 % (20.0-45.0) Monocytes (%) (Auto) 11.2 % (1.0-10.0) H Eosinophils (%) (Auto) 3.0 % (0.0-3.0) Basophils (%) (Auto) 2.5 % (0.0-2.0) H Sodium Level 142 MMOL/L (136-145) Potassium Level 4.1 MMOL/L (3.5-5.1) Chloride Level 109 MMOL/L (98-107) H Carbon Dioxide Level 26 MMOL/L (21-32) Anion Gap 7 mmol/L (5-15) Blood Urea Nitrogen 21 mg/dL (7-18) H Creatinine 1.2 MG/DL (0.55-1.30) Estimat Glomerular Filtration Rate > 60 mL/min (>60) Glucose Level 88 MG/DL (74-106) Uric Acid 3.5 MG/DL (2.6-7.2) Calcium Level 8.1 MG/DL (8.5-10.1) L Phosphorus Level 3.8 MG/DL (2.5-4.9) Magnesium Level 1.5 MG/DL (1.8-2.4) L Total Bilirubin 0.7 MG/DL (0.2-1.0) Aspartate Amino Transf (AST/SGOT) 144 U/L (15-37) H Alanine Aminotransferase (ALT/SGPT) 73 U/L (12-78) Alkaline Phosphatase 85 U/L (46-116) Total Protein 7.6 G/DL (6.4-8.2) Albumin 2.2 G/DL (3.4-5.0) L Globulin 5.4 g/dL Albumin/Globulin Ratio 0.4 (1.0-2.7) L Plan Problems: (1) 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 Wounds Right lower ext are malodorous. Irregular shaped ulcers with fibrinous slough vaibhav, medial and posterior R tibia,wounds oozing seropurulent exudate.Surrounding Xerosis skin noted. Large ulcer noted to dorsal R foot. Fibrinous slough at base of wound with macerated borders. Ulcers dorsal and web space of R 1st metatarsal oozing serosanguineous exudate. Small amt sanguineous exudate noted. R heel boggy,tender when palpated. RLE and R foot thoroughly washed ,gently scrubbed and moisturized to remove thick scaly skin. Post cleansing wounds are still malodorous. Pt stated he had wounds for considerable time but denied ever seeking medical attention for wounds. No other skin concerns noted.Pt has Splint L lower ext. Tx.Plan: Cleanse wounds RLE and R foot with Dakin's 0.125% solution. Apply TheraHoney. Cover each wound with Maxsorb Extra(Calcium Alginate) Apply Abd Pads and wrap with Kerlix from base of toes to below knee. Elevate leg on pillows. Reposition at least every 2hours or as tolerated. (2) Fracture of distal end of left tibia Assessment & Plan: No acute fracture, malalignment, or periosteal reaction are identified. Soft tissues are unremarkable. The AP or frontal projection is limited by the presence of a posterior splint. Impression: No obvious acute injury. (3) Osteomyelitis of foot, right, acute Assessment & Plan: No acute fracture, malalignment, or periosteal reaction are identified. Soft tissues are unremarkable. The AP or frontal projection is limited by the presence of a posterior splint. Impression: No obvious acute injury. No evidence of acute osteomyelitis or abscess in the area of clinical concern. Generalized subcutaneous edema which is nonspecific but may be due to cellulitis. (4) Cellulitis Assessment & Plan: as above abx as per ID improved cont with current care (5) Abnormal LFTs Assessment & Plan: hx of liver insufficiency / disease lft's mildly elevated Suspected chronic liver disease with surface nodularity and heterogeneous coarsened echotexture. No ascites. Mild thickening of the gallbladder wall nonspecific. Chronic liver disease/cirrhosis with signs of portal hypertension including trace ascites, anasarca, mesenteric edema and portosystemic varices in the distal esophagus. Spleen is normal size. will follow with recs trends labs labs improved d/c planning Patrick Ga Aug 24, 2019 17:16
[2019-08-24 20:00] VITALS: BP 138/77
[2019-08-24] MEDS: Dyna-Hex 2% Top Sol 2oz TOPIC SCH (20:37)
--- NOTE | 2019-08-24 22:05 | General Progress Note ---
Assessment/Plan Problem List: (1) Anemia ICD Codes: D64.9 - Anemia, unspecified SNOMED: 602652407 (2) Cellulitis ICD Codes: L03.90 - Cellulitis, unspecified SNOMED: 523217982 (3) Liver cirrhosis ICD Codes: K74.60 - Unspecified cirrhosis of liver SNOMED: 29133904 Qualifiers: Qualified Codes: K74.60 - Unspecified cirrhosis of liver (4) Drug abuse ICD Codes: F19.10 - Other psychoactive substance abuse, uncomplicated SNOMED: 48798230 (5) Peripheral neuropathy ICD Codes: G62.9 - Polyneuropathy, unspecified SNOMED: 212345812 Qualifiers: Qualified Codes: G62.9 - Polyneuropathy, unspecified (6) Fracture of distal end of left tibia ICD Codes: S82.302A - Unspecified fracture of lower end of left tibia, initial encounter for closed fracture SNOMED: 955478552 Qualifiers: Qualified Codes: S82.302A - Unspecified fracture of lower end of left tibia , initial encounter for closed fracture (7) Hepatitis C ICD Codes: B19.20 - Unspecified viral hepatitis C without hepatic coma SNOMED: 72673931 (8) Hepatic encephalopathy ICD Codes: K72.90 - Hepatic failure, unspecified without coma SNOMED: 41475300 (9) Coagulopathy ICD Codes: D68.9 - Coagulation defect, unspecified SNOMED: 08527439 (10) Sepsis ICD Codes: A41.9 - Sepsis, unspecified organism SNOMED: 81066883 (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 (12) Abnormal LFTs ICD Codes: R94.5 - Abnormal results of liver function studies SNOMED: 537921828 Status: progressing Assessment/Plan: reviewed chart and labs no acute disease etoh cirhosis hepatic encephalpathy sepsis v intracranial hemorrhge Subjective ROS Limited/Unobtainable: Yes Constitutional: Reports: no symptoms HEENT: Reports: no symptoms Allergies: Coded Allergies: PENICILLINS (Verified Allergy, Unknown, 02/10/17) Uncoded Allergies: PENICILLIN (Allergy, Unknown, 05/15/19) Objective Last 24 Hour Vital Signs Date Time Temp Pulse Resp B/P (MAP) Pulse Ox O2 Delivery O2 Flow Rate FiO2 08/24/19 20:38 68 138/77 08/24/19 16:00 98.7 66 19 129/69 (89) 98 08/24/19 13:26 120/60 08/24/19 12:00 97.3 62 20 132/72 (92) 100 08/24/19 09:11 156/86 08/24/19 09:10 62 156/86 08/24/19 09:10 62 156/86 08/24/19 09:00 Room Air 08/24/19 08:00 97.7 62 20 156/86 (109) 100 08/24/19 05:27 125/66 08/24/19 04:00 98.2 9 19 125/66 (85) 97 08/24/19 00:00 98.1 75 18 127/62 (83) 98 Intake and Output 08/23/19 08/24/19 18:59 06:59 Intake Total 1240 ml 480 ml Output Total 1600 ml 1900 ml Balance -360 ml -1420 ml Intake Oral 1240 ml 480 ml Output Urine Total 1600 ml 1900 ml # Voids 4 # Bowel Movements 1 Laboratory Tests 08/24/19 05:15: White Blood Count 6.3, Red Blood Count 3.53L, Hemoglobin 11.6L, Hematocrit 34.3L , Mean Corpuscular Volume 97, Mean Corpuscular Hemoglobin 32.8H, Mean Corpuscular Hemoglobin Concent 33.8, Red Cell Distribution Width 11.8, Platelet Count 173, Mean Platelet Volume 7.0, Neutrophils (%) (Auto) 41.3L, Lymphocytes ( %) (Auto) 42.1, Monocytes (%) (Auto) 11.2H, Eosinophils (%) (Auto) 3.0, Basophils (%) (Auto) 2.5H, Sodium Level 142, Potassium Level 4.1, Chloride Level 109H, Carbon Dioxide Level 26, Anion Gap 7, Blood Urea Nitrogen 21H, Creatinine 1.2, Estimat Glomerular Filtration Rate > 60, Glucose Level 88, Uric Acid 3.5, Calcium Level 8.1L, Phosphorus Level 3.8, Magnesium Level 1.5L, Total Bilirubin 0.7, Aspartate Amino Transf (AST/SGOT) 144H, Alanine Aminotransferase (ALT/SGPT) 73, Alkaline Phosphatase 85, Total Protein 7.6, Albumin 2.2L, Globulin 5.4, Albumin/Globulin Ratio 0.4L Height (Feet): 6 Height (Inches): 1.00 Weight (Pounds): 219 Cardiovascular: regular rhythm Respiratory/Chest: lungs clear Abdomen: soft Esthela Arauz MD Aug 24, 2019 22:05
--- NOTE | 2019-08-24 22:46 | General Progress Note ---
Assessment/Plan Status: progressing Assessment/Plan: Assessment - intracrainial bleed - cirrhosis per imaging - Hepatitis C - Hiatal hernia - LE edema - Anemia - minimally elevated NH3 - suspect incidental Recommendations - po as tolerated - neuro exams - outpatient HCV eradication Subjective Allergies: Coded Allergies: PENICILLINS (Verified Allergy, Unknown, 02/10/17) Uncoded Allergies: PENICILLIN (Allergy, Unknown, 05/15/19) Subjective Seen this am eating OK no abd complaints Objective Last 24 Hour Vital Signs Date Time Temp Pulse Resp B/P (MAP) Pulse Ox O2 Delivery O2 Flow Rate FiO2 08/24/19 22:16 156/98 08/24/19 20:38 68 138/77 08/24/19 16:00 98.7 66 19 129/69 (89) 98 08/24/19 13:26 120/60 08/24/19 12:00 97.3 62 20 132/72 (92) 100 08/24/19 09:11 156/86 08/24/19 09:10 62 156/86 08/24/19 09:10 62 156/86 08/24/19 09:00 Room Air 08/24/19 08:00 97.7 62 20 156/86 (109) 100 08/24/19 05:27 125/66 08/24/19 04:00 98.2 9 19 125/66 (85) 97 08/24/19 00:00 98.1 75 18 127/62 (83) 98 Intake and Output 08/23/19 08/24/19 18:59 06:59 Intake Total 1240 ml 480 ml Output Total 1600 ml 1900 ml Balance -360 ml -1420 ml Intake Oral 1240 ml 480 ml Output Urine Total 1600 ml 1900 ml # Voids 4 # Bowel Movements 1 Laboratory Tests 08/24/19 05:15: White Blood Count 6.3, Red Blood Count 3.53L, Hemoglobin 11.6L, Hematocrit 34.3L , Mean Corpuscular Volume 97, Mean Corpuscular Hemoglobin 32.8H, Mean Corpuscular Hemoglobin Concent 33.8, Red Cell Distribution Width 11.8, Platelet Count 173, Mean Platelet Volume 7.0, Neutrophils (%) (Auto) 41.3L, Lymphocytes ( %) (Auto) 42.1, Monocytes (%) (Auto) 11.2H, Eosinophils (%) (Auto) 3.0, Basophils (%) (Auto) 2.5H, Sodium Level 142, Potassium Level 4.1, Chloride Level 109H, Carbon Dioxide Level 26, Anion Gap 7, Blood Urea Nitrogen 21H, Creatinine 1.2, Estimat Glomerular Filtration Rate > 60, Glucose Level 88, Uric Acid 3.5, Calcium Level 8.1L, Phosphorus Level 3.8, Magnesium Level 1.5L, Total Bilirubin 0.7, Aspartate Amino Transf (AST/SGOT) 144H, Alanine Aminotransferase (ALT/SGPT) 73, Alkaline Phosphatase 85, Total Protein 7.6, Albumin 2.2L, Globulin 5.4, Albumin/Globulin Ratio 0.4L Height (Feet): 6 Height (Inches): 1.00 Weight (Pounds): 219 Objective WDWN NCAT supple CTA RRR abd soft ND NT no edema Viktoria Chatterjee MD Aug 24, 2019 22:46
[2019-08-25 00:43] VITALS: BP 130/70
[2019-08-25 04:48] VITALS: BP 132/69
[2019-08-25] MEDS: HydrALAZINE 50mg tab ORAL SCH ×2 (05:44→13:31)
[2019-08-25 08:00] VITALS: BP 132/71
--- NOTE | 2019-08-25 08:52 | General Progress Note ---
Assessment/Plan Assessment/Plan: (1) B/L LE pain (2) Left tibia fracture (3) Right non healing ulcer (4) Peripheral Neuropathy (5) Cocaine abuse Patient will be discontinued off Morphine. We will start norco 5/325mg PO 1 tab Q4H PRN severe pain. D/w Dr. Romano and he concurred. Subjective Date patient seen: Aug 25, 2019 Time patient seen: 08:15 - am Allergies: Coded Allergies: PENICILLINS (Verified Allergy, Unknown, 02/10/17) Uncoded Allergies: PENICILLIN (Allergy, Unknown, 05/15/19) Subjective Constitutional: Reports: weakness HEENT: Reports: no symptoms Cardiovascular: Reports: no symptoms Respiratory: Reports: no symptoms Gastrointestinal/Abdominal: Reports: no symptoms Genitourinary: Reports: no symptoms Neurologic/Psychiatric: Reports: weakness Endocrine: Reports: no symptoms Hematologic/Lymphatic: Reports: no symptoms Subjective Patient shows no signs of pain or distress. Using one dose of Morphine in the last 24hrs. D/w him about changing the Morphine to [place] and he seems to understand. Objective Last 24 Hour Vital Signs Date Time Temp Pulse Resp B/P (MAP) Pulse Ox O2 Delivery O2 Flow Rate FiO2 08/25/19 05:44 132/69 08/25/19 04:48 98.0 62 19 132/69 (90) 100 08/25/19 00:43 97.7 66 19 130/70 (90) 97 08/24/19 22:16 156/98 08/24/19 21:00 Room Air 08/24/19 20:38 68 138/77 08/24/19 20:00 98.4 68 19 138/77 (97) 98 08/24/19 16:00 98.7 66 19 129/69 (89) 98 08/24/19 13:26 120/60 08/24/19 12:00 97.3 62 20 132/72 (92) 100 08/24/19 09:11 156/86 08/24/19 09:10 62 156/86 08/24/19 09:10 62 156/86 08/24/19 09:00 Room Air Intake and Output 08/24/19 08/25/19 19:00 07:00 Intake Total 1120 ml Output Total 600 ml 1800 ml Balance 520 ml -1800 ml Intake Oral 720 ml IV Total 400 ml Output Urine Total 600 ml 1800 ml # Voids 4 4 # Bowel Movements 2 Height (Feet): 6 Height (Inches): 1.00 Weight (Pounds): 219 Objective General Appearance: no apparent distress, confused HEENT: normocephalic Neck: non-tender, supple Respiratory/Chest: decreased breath sounds Abdomen: non tender, soft Extremities: other - left LE in cast, right LE bandages applied Neurologic: alert, responsive Giuliano Liu Aug 25, 2019 08:52
[2019-08-25] MEDS: Magnesium Oxide 400mg tab ORAL SCH ×3 (08:56→18:30)
[2019-08-25] MEDS: Ciprofloxacin 500mg tab ORAL SCH (08:56)
[2019-08-25] MEDS: Metoprolol Tartrate 50mg tab ORAL SCH (08:57)
[2019-08-25] MEDS: Nitroglycerin Patch 0.4mg TDERMAL SCH (08:57)
[2019-08-25] MEDS: Thiamine 100mg tab ORAL SCH (08:58)
[2019-08-25] MEDS: Dakin's 0.125% Soln (Quarter Strength) 16oz TOPIC SCH (10:31)
[2019-08-25] MEDS: HYDROcodone/Acetamin 5/325 tab ORAL PRN ×2 (10:31→16:05)
--- NOTE | 2019-08-25 11:50 | General Progress Note ---
Assessment/Plan Assessment/Plan: Assessment - intracrainial bleed - cirrhosis per imaging - Hepatitis C - Hiatal hernia - LE edema - Anemia - minimally elevated NH3 - suspect incidental Recommendations - po as tolerated - follow labs - outpatient HCV eradication Subjective Allergies: Coded Allergies: PENICILLINS (Verified Allergy, Unknown, 02/10/17) Uncoded Allergies: PENICILLIN (Allergy, Unknown, 05/15/19) Subjective Seen this am d/w RN no abd complaints Objective Last 24 Hour Vital Signs Date Time Temp Pulse Resp B/P (MAP) Pulse Ox O2 Delivery O2 Flow Rate FiO2 08/25/19 09:00 Room Air 08/25/19 08:58 92 132/71 08/25/19 08:57 132/71 08/25/19 08:57 92 132/71 08/25/19 08:00 98.3 92 19 132/71 (91) 98 08/25/19 05:44 132/69 08/25/19 04:48 98.0 62 19 132/69 (90) 100 08/25/19 00:43 97.7 66 19 130/70 (90) 97 08/24/19 22:16 156/98 08/24/19 21:00 Room Air 08/24/19 20:38 68 138/77 08/24/19 20:00 98.4 68 19 138/77 (97) 98 08/24/19 16:00 98.7 66 19 129/69 (89) 98 08/24/19 13:26 120/60 08/24/19 12:00 97.3 62 20 132/72 (92) 100 Intake and Output 08/24/19 08/25/19 19:00 07:00 Intake Total 1120 ml Output Total 600 ml 1800 ml Balance 520 ml -1800 ml Intake Oral 720 ml IV Total 400 ml Output Urine Total 600 ml 1800 ml # Voids 4 4 # Bowel Movements 2 Height (Feet): 6 Height (Inches): 1.00 Weight (Pounds): 219 Objective WDWN NCAT supple CTA RRR abd soft ND NT no edema Viktoria Chatterjee MD Aug 25, 2019 11:50
[2019-08-25 12:00] VITALS: BP 129/66
--- NOTE | 2019-08-25 13:00 | Nephrology Progress Note ---
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 He has a new left thalamic hematoma, most likely secondary to his hypertensive vascular disease. Neuro: Plan [facility] susannah I HAD MD-MD CONVERSATION YESTERDAY WITH LUIS ENRIQUE. I WAS TOLD THAT THE THALAMUS HEMATOMA IS NOT A NEUROSURGICAL OPERATIVE CASE. CAUSE BY HTN AND NEED TO HAVE BP CONTROL AND OBSERVE. DR MARTÍNEZ IS ALSO AGREEABLE to med-surg adjust BP meds- tolerating PO Arrange for SNF Hold mind altering meds hydrate neuro eval note antibiotics per consultants / Neuro Nitro Head CT: 17 x 6 x 8 mm acute to subacute hematoma in the left upper thalamus/morales radiata. Little to no edema or mass effect associated with this. Mild atrophy of the brain. Nonspecific white matter hypoattenuation probably due to chronic small vessel disease. Sinusitis Subjective ROS Limited/Unobtainable: No Objective Objective Last 24 Hour Vital Signs Date Time Temp Pulse Resp B/P (MAP) Pulse Ox O2 Delivery O2 Flow Rate FiO2 08/25/19 12:00 98.6 70 19 129/66 (87) 99 08/25/19 09:00 Room Air 08/25/19 08:58 92 132/71 08/25/19 08:57 132/71 08/25/19 08:57 92 132/71 08/25/19 08:00 98.3 92 19 132/71 (91) 98 08/25/19 05:44 132/69 08/25/19 04:48 98.0 62 19 132/69 (90) 100 08/25/19 00:43 97.7 66 19 130/70 (90) 97 08/24/19 22:16 156/98 08/24/19 21:00 Room Air 08/24/19 20:38 68 138/77 08/24/19 20:00 98.4 68 19 138/77 (97) 98 08/24/19 16:00 98.7 66 19 129/69 (89) 98 08/24/19 13:26 120/60 Intake and Output 08/24/19 08/25/19 19:00 07:00 Intake Total 1120 ml Output Total 600 ml 1800 ml Balance 520 ml -1800 ml Intake Oral 720 ml IV Total 400 ml Output Urine Total 600 ml 1800 ml # Voids 4 4 # Bowel Movements 2 Height (Feet): 6 Height (Inches): 1.00 Weight (Pounds): 219 General Appearance: no apparent distress Objective no change Geoffrey Manzano MD Aug 25, 2019 13:00
--- NOTE | 2019-08-25 13:48 | Infectious Diseases Prog Note ---
Assessment/Plan Assessment/Plan IMPRESSION: 1. Sepsis with fever and tachycardia. 2. Bilateral leg cellulitis. 3. penicillin allergy 4. Intracranial bleeding & hematoma. 5. Liver cirrhosis. 6. Diabetes mellitus with peripheral neuropathy. 7. Hypertension. 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 RECOMMENDATION: Continue PO Ciprofloxacin X 3 days leg MRI: negative for osteomyelitis Subjective ROS Limited/Unobtainable: No Constitutional: Reports: no symptoms Respiratory: Reports: no symptoms Cardiovascular: Reports: no symptoms Gastrointestinal/Abdominal: Reports: no symptoms Genitourinary: Reports: no symptoms Musculoskeletal: Reports: pain, other - in legs Allergies: Coded Allergies: PENICILLINS (Verified Allergy, Unknown, 02/10/17) Uncoded Allergies: PENICILLIN (Allergy, Unknown, 05/15/19) Objective Vital Signs Last 24 Hour Vital Signs Date Time Temp Pulse Resp B/P (MAP) Pulse Ox O2 Delivery O2 Flow Rate FiO2 08/25/19 13:31 129/66 08/25/19 12:00 98.6 70 19 129/66 (87) 99 08/25/19 09:00 Room Air 08/25/19 08:58 92 132/71 08/25/19 08:57 132/71 08/25/19 08:57 92 132/71 08/25/19 08:00 98.3 92 19 132/71 (91) 98 08/25/19 05:44 132/69 08/25/19 04:48 98.0 62 19 132/69 (90) 100 08/25/19 00:43 97.7 66 19 130/70 (90) 97 08/24/19 22:16 156/98 08/24/19 21:00 Room Air 08/24/19 20:38 68 138/77 08/24/19 20:00 98.4 68 19 138/77 (97) 98 08/24/19 16:00 98.7 66 19 129/69 (89) 98 Height (Feet): 6 Height (Inches): 1.00 Weight (Pounds): 219 General Appearance: no acute distress HEENT: mucous membranes moist Respiratory/Chest: lungs clear Cardiovascular: normal rate Abdomen: soft, non tender Extremities: no edema Skin: other - chronic skin changes of legs, right leg ulcers Neurologic/Psychiatric: alert, responsive Current Medications Medications (Trade) Dose Ordered Sig/Sharla Route PRN Reason Start Time Stop Time Status Last Admin Dose Admin Acetaminophen/ Hydrocodone Bitart ([place] 5/325) 1 tab Q4H PRN ORAL Severe Pain (Pain Scale 7-10) 08/25/19 09:00 09/01/19 08:59 08/25/19 10:31 Amlodipine Besylate (Norvasc) 5 mg DAILY ORAL 08/22/19 09:00 09/17/19 08:59 08/25/19 08:58 Chlorhexidine Gluconate (Chastity-Hex 2%) 1 applic DAILY@2000 TOPIC 08/22/19 20:00 09/17/19 19:59 08/24/19 20:37 Ciprofloxacin (Cipro 500mg tab) 500 mg EVERY 12 HOURS ORAL 08/22/19 09:00 08/28/19 23:59 08/25/19 08:56 Hydralazine HCl (Apresoline) 50 mg EVERY 8 HOURS ORAL 08/22/19 06:00 09/16/19 21:59 08/25/19 13:31 Magnesium Oxide (Mag-Ox 400mg) 400 mg THREE TIMES A DAY ORAL 08/24/19 09:00 09/23/19 08:59 08/25/19 13:31 Metoprolol Tartrate (Lopressor) 50 mg EVERY 12 HOURS ORAL 08/22/19 09:00 09/16/19 20:59 08/25/19 08:57 Nitroglycerin (Ntg) 1 patch Q24H TDERMAL 08/22/19 09:00 09/17/19 08:59 08/25/19 08:57 Pantoprazole (Protonix) 40 mg DAILY ORAL 08/22/19 09:00 09/18/19 08:59 08/25/19 08:57 Potassium Chloride (K-Dur) 40 meq DAILY ORAL 08/22/19 09:00 09/18/19 08:59 08/25/19 08:58 Sodium Hypochlorite (Dakin's Quarter Strength) 1 applic DAILY TOPIC 08/22/19 09:00 09/19/19 08:59 08/25/19 10:31 Thiamine HCl (Vitamin B1) 100 mg DAILY ORAL 08/22/19 09:00 09/19/19 08:59 08/25/19 08:58 Edis Irving MD Aug 25, 2019 13:48
--- NOTE | 2019-08-25 13:58 | Hematology/Onc Progress Note ---
Assessment/Plan Assessment/Plan Assessment and Recs: # Intracranial bleed - 17 x 6 x 8 mm acute to subacute hematoma in the left upper thalamus/morales radiata. Little to no edema or mass effect associated with this. 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 Subjective Allergies: Coded Allergies: PENICILLINS (Verified Allergy, Unknown, 02/10/17) Uncoded Allergies: PENICILLIN (Allergy, Unknown, 05/15/19) Subjective 08/20: requires bp control of hematoma nonsurgical care, bp mildly high in afternoon 08/22: on vanc, with picc, no events, labs noted 08/23: awake and alert, no acute events, on cipro and thiamine 08/24: no bleeding, no chills, no major changes, no events 08/25: no events noted, no bleeding, hematoma better, labs noted, hgb better Objective Objective Current Medications Medications (Trade) Dose Ordered Sig/Sharla Route PRN Reason Start Time Stop Time Status Last Admin Dose Admin Acetaminophen/ Hydrocodone Bitart ([place] 5/325) 1 tab Q4H PRN ORAL Severe Pain (Pain Scale 7-10) 08/25/19 09:00 09/01/19 08:59 08/25/19 10:31 Amlodipine Besylate (Norvasc) 5 mg DAILY ORAL 08/22/19 09:00 09/17/19 08:59 08/25/19 08:58 Chlorhexidine Gluconate (Chastity-Hex 2%) 1 applic DAILY@2000 TOPIC 08/22/19 20:00 09/17/19 19:59 08/24/19 20:37 Ciprofloxacin (Cipro 500mg tab) 500 mg EVERY 12 HOURS ORAL 08/22/19 09:00 08/28/19 23:59 08/25/19 08:56 Hydralazine HCl (Apresoline) 50 mg EVERY 8 HOURS ORAL 08/22/19 06:00 09/16/19 21:59 08/25/19 13:31 Magnesium Oxide (Mag-Ox 400mg) 400 mg THREE TIMES A DAY ORAL 08/24/19 09:00 09/23/19 08:59 08/25/19 13:31 Metoprolol Tartrate (Lopressor) 50 mg EVERY 12 HOURS ORAL 08/22/19 09:00 09/16/19 20:59 08/25/19 08:57 Nitroglycerin (Ntg) 1 patch Q24H TDERMAL 08/22/19 09:00 09/17/19 08:59 08/25/19 08:57 Pantoprazole (Protonix) 40 mg DAILY ORAL 08/22/19 09:00 09/18/19 08:59 08/25/19 08:57 Potassium Chloride (K-Dur) 40 meq DAILY ORAL 08/22/19 09:00 09/18/19 08:59 08/25/19 08:58 Sodium Hypochlorite (Dakin's Quarter Strength) 1 applic DAILY TOPIC 08/22/19 09:00 09/19/19 08:59 08/25/19 10:31 Thiamine HCl (Vitamin B1) 100 mg DAILY ORAL 08/22/19 09:00 09/19/19 08:59 08/25/19 08:58 Last 24 Hour Vital Signs Date Time Temp Pulse Resp B/P (MAP) Pulse Ox O2 Delivery O2 Flow Rate FiO2 08/25/19 13:31 129/66 08/25/19 12:00 98.6 70 19 129/66 (87) 99 08/25/19 09:00 Room Air 08/25/19 08:58 92 132/71 08/25/19 08:57 132/71 08/25/19 08:57 92 132/71 08/25/19 08:00 98.3 92 19 132/71 (91) 98 08/25/19 05:44 132/69 08/25/19 04:48 98.0 62 19 132/69 (90) 100 08/25/19 00:43 97.7 66 19 130/70 (90) 97 08/24/19 22:16 156/98 08/24/19 21:00 Room Air 08/24/19 20:38 68 138/77 08/24/19 20:00 98.4 68 19 138/77 (97) 98 08/24/19 16:00 98.7 66 19 129/69 (89) 98 08/24/19 13:26 120/60 08/24/19 12:00 97.3 62 20 132/72 (92) 100 08/24/19 09:11 156/86 08/24/19 09:10 62 156/86 08/24/19 09:10 62 156/86 08/24/19 09:00 Room Air 08/24/19 08:00 97.7 62 20 156/86 (109) 100 08/24/19 05:27 125/66 08/24/19 04:00 98.2 9 19 125/66 (85) 97 08/24/19 00:00 98.1 75 18 127/62 (83) 98 08/23/19 22:00 124/68 08/23/19 21:00 Room Air 08/23/19 20:13 82 124/68 08/23/19 20:00 98.3 82 18 124/68 (86) 97 08/23/19 16:02 98.5 74 22 135/70 (91) 99 Intake and Output 08/24/19 08/25/19 19:00 07:00 Intake Total 1120 ml Output Total 600 ml 1800 ml Balance 520 ml -1800 ml Intake Oral 720 ml IV Total 400 ml Output Urine Total 600 ml 1800 ml # Voids 4 4 # Bowel Movements 2 Labs Test 08/24/19 05:15 White Blood Count 6.3 K/UL (4.8-10.8) Red Blood Count 3.53 M/UL (4.70-6.10) Hemoglobin 11.6 G/DL (14.2-18.0) Hematocrit 34.3 % (42.0-52.0) Mean Corpuscular Volume 97 FL (80-99) Mean Corpuscular Hemoglobin 32.8 PG (27.0-31.0) Mean Corpuscular Hemoglobin Concent 33.8 G/DL (32.0-36.0) Red Cell Distribution Width 11.8 % (11.6-14.8) Platelet Count 173 K/UL (150-450) Mean Platelet Volume 7.0 FL (6.5-10.1) Neutrophils (%) (Auto) 41.3 % (45.0-75.0) Lymphocytes (%) (Auto) 42.1 % (20.0-45.0) Monocytes (%) (Auto) 11.2 % (1.0-10.0) Eosinophils (%) (Auto) 3.0 % (0.0-3.0) Basophils (%) (Auto) 2.5 % (0.0-2.0) Sodium Level 142 MMOL/L (136-145) Potassium Level 4.1 MMOL/L (3.5-5.1) Chloride Level 109 MMOL/L (98-107) Carbon Dioxide Level 26 MMOL/L (21-32) Anion Gap 7 mmol/L (5-15) Blood Urea Nitrogen 21 mg/dL (7-18) Creatinine 1.2 MG/DL (0.55-1.30) Estimat Glomerular Filtration Rate > 60 mL/min (>60) Glucose Level 88 MG/DL (74-106) Uric Acid 3.5 MG/DL (2.6-7.2) Calcium Level 8.1 MG/DL (8.5-10.1) Phosphorus Level 3.8 MG/DL (2.5-4.9) Magnesium Level 1.5 MG/DL (1.8-2.4) Total Bilirubin 0.7 MG/DL (0.2-1.0) Aspartate Amino Transf (AST/SGOT) 144 U/L (15-37) Alanine Aminotransferase (ALT/SGPT) 73 U/L (12-78) Alkaline Phosphatase 85 U/L (46-116) Total Protein 7.6 G/DL (6.4-8.2) Albumin 2.2 G/DL (3.4-5.0) Globulin 5.4 g/dL Albumin/Globulin Ratio 0.4 (1.0-2.7) Height (Feet): 6 Height (Inches): 1.00 Weight (Pounds): 219 Objective PE General: alert, mild distress, other - disheveled Neck: normal inspection Respiratory: chest non-tender, lungs clear, normal breath sounds Cardiovascular: tachycardia Gastrointestinal: normal bowel sounds, non tender, soft, non-distended, no guarding, no rebound Genitourinary: no CVA tenderness Musculoskeletal: tender - L ankle swelling Neurologic: alert, motor strength/tone normal, sensory intact, speech normal, other - moaning. agitated Skin: other - erythema/weeping skin LLE. ulceration noted, PICC WOODY++ Luis M Carlin MD Aug 25, 2019 13:58
[2019-08-25] MEDS ORDERED: NORVASC5 MG ORAL (14:35)
[2019-08-25] MEDS ORDERED: APRESOLINE50 MG ORAL (14:36)
[2019-08-25] MEDS ORDERED: CIPROFLOXACIN500 M2 ORAL (14:36)
[2019-08-25] MEDS ORDERED: NORCO 5-325 TA1 EACH ORAL (14:37)
[2019-08-25] MEDS ORDERED: METOPROLOL TART50 M1 ORAL (14:38)
[2019-08-25] MEDS ORDERED: MAGNESIUM OXID400 M1 ORAL (14:38)
[2019-08-25] MEDS ORDERED: NITROGLYCERIN1 EAC2 TD (14:40)
[2019-08-25] MEDS ORDERED: PANTOPRAZOLE SO40 MG ORAL (14:40)
[2019-08-25] MEDS ORDERED: POTASSIUM CHLO20 ME1 ORAL (14:41)
[2019-08-25] MEDS ORDERED: DAKIN'S1 APPLI1 TOPIC (14:42)
[2019-08-25] MEDS ORDERED: VITAMIN B-1100 M2 PO (14:43)
[2019-08-25 16:00] VITALS: BP 129/68
--- NOTE | 2019-08-25 17:38 | Surgery Progress Note ---
Surgery Progress Note Subjective Symptoms: improved, tolerating diet, voiding well, passing flatus, pain decreased Objective Last 24 Hour Vital Signs Date Time Temp Pulse Resp B/P (MAP) Pulse Ox O2 Delivery O2 Flow Rate FiO2 08/25/19 13:31 129/66 08/25/19 12:00 98.6 70 19 129/66 (87) 99 08/25/19 09:00 Room Air 08/25/19 08:58 92 132/71 08/25/19 08:57 132/71 08/25/19 08:57 92 132/71 08/25/19 08:00 98.3 92 19 132/71 (91) 98 08/25/19 05:44 132/69 08/25/19 04:48 98.0 62 19 132/69 (90) 100 08/25/19 00:43 97.7 66 19 130/70 (90) 97 08/24/19 22:16 156/98 08/24/19 21:00 Room Air 08/24/19 20:38 68 138/77 08/24/19 20:00 98.4 68 19 138/77 (97) 98 I&O Intake and Output 08/24/19 08/25/19 19:00 07:00 Intake Total 1120 ml Output Total 600 ml 1800 ml Balance 520 ml -1800 ml Intake Oral 720 ml IV Total 400 ml Output Urine Total 600 ml 1800 ml # Voids 4 4 # Bowel Movements 2 Dressing: saturated Wound: clean Cardiovascular: RSR Respiratory: clear Abdomen: soft, non-tender, non-distended Extremities: edema, no cyanosis, other Plan Problems: (1) 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 Wounds Right lower ext are malodorous. Irregular shaped ulcers with fibrinous slough vaibhav, medial and posterior R tibia,wounds oozing seropurulent exudate.Surrounding Xerosis skin noted. Large ulcer noted to dorsal R foot. Fibrinous slough at base of wound with macerated borders. Ulcers dorsal and web space of R 1st metatarsal oozing serosanguineous exudate. Small amt sanguineous exudate noted. R heel boggy,tender when palpated. RLE and R foot thoroughly washed ,gently scrubbed and moisturized to remove thick scaly skin. Post cleansing wounds are still malodorous. Pt stated he had wounds for considerable time but denied ever seeking medical attention for wounds. No other skin concerns noted.Pt has Splint L lower ext. Tx.Plan: Cleanse wounds RLE and R foot with Dakin's 0.125% solution. Apply TheraHoney. Cover each wound with Maxsorb Extra(Calcium Alginate) Apply Abd Pads and wrap with Kerlix from base of toes to below knee. Elevate leg on pillows. Reposition at least every 2hours or as tolerated. (2) Fracture of distal end of left tibia Assessment & Plan: No acute fracture, malalignment, or periosteal reaction are identified. Soft tissues are unremarkable. The AP or frontal projection is limited by the presence of a posterior splint. Impression: No obvious acute injury. (3) Osteomyelitis of foot, right, acute Assessment & Plan: No acute fracture, malalignment, or periosteal reaction are identified. Soft tissues are unremarkable. The AP or frontal projection is limited by the presence of a posterior splint. Impression: No obvious acute injury. No evidence of acute osteomyelitis or abscess in the area of clinical concern. Generalized subcutaneous edema which is nonspecific but may be due to cellulitis. (4) Cellulitis Assessment & Plan: as above abx as per ID improved d/c planning cont with current care (5) Abnormal LFTs Assessment & Plan: hx of liver insufficiency / disease lft's mildly elevated Suspected chronic liver disease with surface nodularity and heterogeneous coarsened echotexture. No ascites. Mild thickening of the gallbladder wall nonspecific. Chronic liver disease/cirrhosis with signs of portal hypertension including trace ascites, anasarca, mesenteric edema and portosystemic varices in the distal esophagus. Spleen is normal size. will follow with recs trends labs labs improved d/c planning Patrick Ga Aug 25, 2019 17:38
--- NOTE | 2019-08-26 08:39 | Discharge Summary ---
Discharge Summary Discharge Summary _ DATE OF ADMISSION: 08/16/2019 DATE OF DISCHARGE: 08/25/2019 DISCHARGED BY: Dr. Arauz REASON FOR ADMISSION: 63 years old male with past medical history of diabetes mellitus, hypertension, BPH, homeless, was brought to emergency room from the street for evaluation . He complained of leg pain. Patient reported history of osteomyelitis in the past. Patient however provided only limited history and was moaning in pain . He reported pain 10 out of 10, dull, nonradiating. He denied chest pain or shortness of breath. Upon evaluation patient was tachycardic , blood pressure was elevated 187/96 , pulse oximetry was stable on room air . Patient was febrile. Chest x-ray revealed no acute cardiopulmonary pathology. Right leg with Jn bandages, which arter removal show significant ulceration with cellulitis of the right leg. Status post amputation of toes right foot. X-ray of the left tibia and fibula revealed no acute fracture misalignment or misalignment. Posterior splint was applied. Laboratory work-up revealed no leukocytosis stable hemoglobin hematocrit. BUN 17, creatinine 1.4. Glucose 126. Lactic acid 1.8. Total bilirubin 1.6 direct bilirubin 0.9. AST 108, ALT 64. Ammonia 95. Total CK 562. Troponin 0.062.EKG revealed sinus tachycardia , no acute ischemic changes. Albumin 2.6. Urine toxicology screen was positive for cocaine and opiates. Serum alcohol and Tylenol were negative. Urinalysis revealed no evidence of urinary tract infection. Patient subsequently admitted for further management CONSULTANTS: neurologist Dr. Serrano ID specialist Dr. Peters GI specialist Dr. Chatterjee mold injector Dr. Manzano barber tool sharpener/oncologist Dr. Carlin surgery Dr. Ga orthopedic surgery Dr. Amato scientific writer Dr. Vincent pain specialist Dr Romano [facility] COURSE: Patient admitted initially to telemetry floor. Patient was kept n.p.o., on IV hydration. Patient started on empiric antibiotics. CT of the head revealed 17 x 6 x 8 mm acute to subacute hematoma in the left upper thalamus/morales radiata. Little to no edema or mass effect associated with this. Mild atrophy of the brain. Neurologist followed. Per neurologist, patient has sensorimotor neuropathy due to diabetes . Patient had new left thalamic hematoma, most likely secondary to his hypertensive vascular disease. Neurologist recommended to elevate head of the bed to 30 degrees and control blood pressure. No need for steroids. No need for seizure medication at this time. No surgical i evaluation was necessarily. DVT prophylaxis provided . Hyperammonemia was treated with lactulose as per GI recommendation. Mind altering medications were kept to minimum. Venous duplex bilateral lower extremity revealed no evidence of acute DVT. Echocardiogram revealed ejection fraction 60 to 65% with no evidence of left ventricular hypertrophy. No evidence of pericardial effusion. No evidence of wall motion abnormality. Right ventricular systolic pressure of 20. Arterial duplex bilateral lower extremity reveal no evidence of significant arterial occlusive disease on the left and minimal ischemia on the right leg. Repeated troponin 0.061 and the last 0.056. Patient denied any chest pain. EKG revealed no acute ischemic changes. Troponin elevation was minimal, most likely due to demand ischemia and resolved. ECHO with preserved ejection fraction. Pattern of minimal troponin elevation with flat levels was not suggestive for of acute coronary syndrome. Blood pressure was managed with multiple antihypertensive medications, including calcium channel dave, beta-dave and hydralazine. Blood pressure stabilized. IV antibiotics provided as per ID specialist recommendation. Wound culture revealed Klebsiella , Pseudomonas and Staph coagulase negative. Blood cultures were negative. Mild leukocytosis present on the second day resolved. Fevers resolved. ID specialist recommended to continue oral antibiotic for additional 3 days to complete the course. MRI of the tibia-fibula revealed no evidence of acute osteomyelitis or abscess. Generalized subcutaneous edema , nonspecific, likely due to cellulitis. General surgeon followed. Wound care provided as per surgeon recommendation for neuropathic ulcer of the right foot. Continue wound care at the facility. Orthopedic surgeon seen and evaluated the patient. Per orthopedic surgeon, patient probably had left minimally displaced ankle fracture. No evidence of acute compartment syndrome. Orthopedic surgeon recommended continue IV antibiotic and wound care. No need for any surgical intervention at this time. Pain management was addressed as per pain specialist recommendation. GI specialist followed. Patient initially was on lactulose. Ammonia level was closely monitored, trended down to [address] of the abdomen and pelvis revealed chronic liver disease/cirrhosis with signs of portal hypertension, including trace ascites, anasarca, mesenteric edema and portosystemic varices in the distal esophagus. Spleen of normal size. Hiatal hernia. Hepatitis panel revealed evidence of hepatitis C. AST remained elevated. Oral diet provided as tolerated. Symptomatic treatment provided. GI specialist recommended outpatient treatment for hepatitis C. GI prophylaxis provided. Blood sugar was closely monitored and remained stable. Hemoglobin A1c 6.5. Renal parameters and electrolytes were closely monitored, electrolytes corrected as needed, and nephrotoxins were avoided. Creatinine from 1.4 down to 1.2. Potassium and magnesium were replaced. Hemoglobin and hematocrit were closely monitored with goal to keep hemoglobin above 7. Anemia work-up was consistent with anemia of chronic disease , ferritin 341. Prior to discharge hemoglobin 11.6 , hematocrit 34.3. Patient required placement to correction facility . Placement was arranged and secured at [facility] as fpc . Patient was stable for transfer. FINAL DIAGNOSES: Sepsis Acute encephalopathy Bilateral leg cellulitis Intracranial bleeding with new left thalamic hematoma , most likely secondary to hypertensive vascular disease Diabetes mellitus with peripheral sensorimotor neuropathy Neuropathic ulcer of right foot with fat layer exposed Liver cirrhosis Hepatitis C Hiatal hernia Hypertension Dehydration Drug abuse/cocaine Anemia Left minimally displaced ankle fracture DISCHARGE MEDICATIONS: See Medication Reconciliation list. DISCHARGE INSTRUCTIONS: Patient was discharged to the correction facility. Follow up with medical doctor at the facility. I have been assigned to dictate discharge summary for this account. I was not involved in the patient's management. Dorothy Quevedo NP Aug 26, 2019 08:39
--- NOTE | 2019-08-27 04:30 | Consultation ---
DATE OF CONSULTATION: ORTHOPEDIC CONSULTATION CONSULTING PHYSICIAN: Flaco Amato M.D. CHIEF COMPLAINT: 1. Left leg fracture. 2. Right leg cellulitis. HISTORY OF PRESENT ILLNESS: The patient is a 63-year-old gentleman who is admitted for sepsis. He is currently seen in ICU. The patient got injured to his left ankle which I am not sure exactly when it occurred. He was placed in a posterior splint. There is concern that he had a fracture. Therefore, orthopedic consultation is obtained left ankle. In terms of the right ankle and leg, he does have some chronic venous stasis ulcer with secondary wound issues with underlying osteomyelitis. PAST MEDICAL HISTORY: Reviewed in the intake chart. PAST SURGICAL HISTORY: Reviewed in the intake chart. MEDICATIONS: Reviewed in the intake chart. PHYSICAL EXAMINATION: GENERAL: The patient is currently in the ICU. He is resting comfortably on bed. . VITAL SIGNS: Shows slight hypotension. EXTREMITIES: The left ankle has remained in short posterior splint. Right leg has wound dressings significant wound of right leg. IMAGING STUDIES: Two views of the left ankle performed at bedside did show obvious fracture. ASSESSMENT: 1. Left ankle possible fracture. 2. Right leg chronic infection. DISCUSSION: With regard to the right leg, habilitation specialist to see it and close the wound. If it does not he may require treatment at a tertiary care center osteomyelitis require outpatient of left foot and ankle, I do not see an obvious fracture. At this point, weightbearing of the left leg as tolerated. If he has significant discomfort and pain the knee place a CAM walker boot short ankle splint primarily for soft tissue injury. Flaco Amato M.D. DR: NINA JOB#: [id number] CC:
--- NOTE | 2019-08-30 09:00 | Consultation ---
[facility] Viktoria Chatterjee M.D. CHIEF COMPLAINT: I was asked to see this patient by for evaluation of abnormal liver tests, cough, and encephalopathy. HISTORY OF PRESENT ILLNESS: The patient is a 63-year-old man, who was brought in the hospital because of lethargy and confusion. He is arousable, but minimally interactive and difficulty to get much useful history from him. He knows his name, he knows that he is in the hospital, but other than he does not give much reliable history. According to nursing staff, he has been homeless and was found in a disheveled state. Subsequently the patient had a CT scan, because of altered mental status, which showed intracranial hematoma subsequently transferred to . PAST MEDICAL HISTORY: History of hypertension, otherwise unknown history. ALLERGIES: Penicillin. FAMILY HISTORY: Unavailable and unobtainable. SOCIAL HISTORY: Please see the chart list for details. REVIEW OF SYSTEMS: Unobtainable. PHYSICAL EXAMINATION: GENERAL: Disheveled man, who was somewhat lethargic, but arousable seen in his room. HEENT: Normocephalic and atraumatic. Sclerae anicteric. Oropharynx clear. NECK: Supple. CHEST: Clear to auscultation. CARDIOVASCULAR: Revealed regular rate. ABDOMEN: Soft and nontender. EXTREMITIES: Revealed intertrigo at the groin level. There was also venous stasis edema in the lower extremities, perhaps more left than on the right side with some edema. Poor hygiene in the feet. There was also subcutaneous nodules on the anterior abdominal wall. LABORATORY AND DIAGNOSTIC DATA: Laboratory data and imaging studies were noted. ASSESSMENT: This patient appears to have an acute intracranial hemorrhage, although the amount of hemorrhage is very small not presented with mass effect. The patient should be followed very closely. to evaluate the patient for . In addition, some low-dose lactulose to see if this makes any difference in his mental status, although was ordered before the CT scan results were known, helps with any improvement in his mental status. The patient should have his alpha-fetoprotein checked since there appears to be some degree of possible cirrhosis. I would also check a duplex of the lower extremities to rule out deep venous thrombosis, although he is not a candidate for IV anticoagulation should there be no such finding. RECOMMENDATIONS: Per above discussion and per orders written in the chart. Thank you for asking me to participate in the care of this patient. Viktoria Chatterjee M.D. DR: Diana JOB#: [id number] CC:
== END 2019-08-25 19:09 | DRG 720 ==
LOC: EMR 18:45 → EDBD 18:45 → EDBEDREQ 20:23 → 2E 20:37 → EDBEDREQTM 21:41 → EDBEDREQ 21:41 → EDBEDREQSVC 21:41 → EDBEDREQ 22:02 → 2E 23:17 → ICU 08-17 13:49 → 2W 08-18 17:33 → 4E 08-22 05:45
PROC: 02HV33Z Insertion of Infusion Device into Superior Vena Cava, Percutaneous Approach (ICD-10-PCS; principal; 2019-08-18)
DX: A41.9 Sepsis, unspecified organism (principal); L03.115 Cellulitis of right lower limb; L03.116 Cellulitis of left lower limb; L98.492 Non-pressure chronic ulcer of skin of other sites with fat layer exposed; Z88.0 Allergy status to penicillin; I10 Essential (primary) hypertension; I62.9 Nontraumatic intracranial hemorrhage, unspecified; K72.90 Hepatic failure, unspecified without coma; Z59.0 Homelessness; G93.2 Benign intracranial hypertension; L97.512 Non-pressure chronic ulcer of other part of right foot with fat layer exposed; B19.20 Unspecified viral hepatitis C without hepatic coma; K44.9 Diaphragmatic hernia without obstruction or gangrene; E86.0 Dehydration; F14.10 Cocaine abuse, uncomplicated; D64.9 Anemia, unspecified; Z86.73 Personal history of transient ischemic attack (TIA), and cerebral infarction without residual deficits; S82.302D Unspecified fracture of lower end of left tibia, subsequent encounter for closed fracture with routine healing; X58.XXXD Exposure to other specified factors, subsequent encounter; L97.919 Non-pressure chronic ulcer of unspecified part of right lower leg with unspecified severity; K70.31 Alcoholic cirrhosis of liver with ascites; E78.5 Hyperlipidemia, unspecified; F10.11 Alcohol abuse, in remission; E11.42 Type 2 diabetes mellitus with diabetic polyneuropathy; D68.9 Coagulation defect, unspecified; N17.9 Acute kidney failure, unspecified; Z22.322 Carrier or suspected carrier of Methicillin resistant Staphylococcus aureus; I24.8 Other forms of acute ischemic heart disease
CPT/HCPCS: 29505; 36415; 36569; 70450; 71045; 74160; 76700; 76937; 80053; 80061; 80202; 80307; 81001; 82105; 82140; 82248; 82550; 82607; 82728; 82746; 83036; 83540; 83550; 83605; 83735; 83880; 84100; 84443; 84484; 84550; 85025; 86140; 86705; 86709; 86803; 87040; 87070; 87081; 87181; 87205; 87340; 93005; 93306; 93925; 93970; 96361; 96365; 96366; 96372; 99285; G0480; J7030; J8499